=== PATIENT | female | born 1945 | race Caucasian/White ===

== ENCOUNTER → 2016-09-06 | Outpatient (CLI) | payer OTHER ==
[~2016-09-06] MED LIST: ASCO10003 PO; ATEN50TA8 PO; CALC-393 PO; CHOLTAB3 PO; HYDR25TA4 PO; MAGN1CAP2 PO; MELA1TAB5 PO; MELO7.5T5 PO
--- NOTE | 2016-09-06 14:43 | MAMMOGRAPHY REPORT ---
UNILATERAL LEFT DIGITAL DIAGNOSTIC MAMMOGRAM TOMOSYNTHESIS WITH CAD: 09/06/2016 CLINICAL HISTORY: 70 year-old woman with a personal history of left breast cancer status post lumpec ashkan and radiation presents for follow-up in the left breast after treatment. TECHNIQUE: Left CC and MLO 2-D digital and tomosynthesis images, spot magnification left CC and ML v iews were obtained. Current study was also evaluated with a Computer Aided Detection (CAD) system. COMPARISON: Comparison is made to exams dated: 03/08/2016 mammogram, 09/07/2015 mammogram, 01/27/2015 m ammogram, 01/25/2015 ultrasound, 01/25/2015 mammogram, and 01/08/2015 mammogram - [facility]. BREAST COMPOSITION: There are scattered areas of fibroglandular density in the left breast. FINDINGS: A linear scar marker overlies the upper outer middle one third of the left breast. There is expected underlying architectural distortion, focal asymmetry and benign-appearing calcifications at the site of prior lumpectomy in the upper outer middle to posterior left breast. There is mild diffuse skin thickening, likely related to prior treatment. No new suspicious mass, architectural d istortion or cluster of suspicious microcalcifications is seen. IMPRESSION: ACR-BI-RADS CATEGORY 3: PROBABLY BENIGN Expected post-therapeutic changes of the left breast, without definite mammographic evidence of carl gnancy. Recommend follow-up left diagnostic mammograms with possible ultrasound in 6 months to ensu re at least 2 years of stability posttreatment. Annual right mammography is also due at that time. These results and recommendations were discussed with the patient at the time of the exam. Approximately 10% of breast cancers are not detected with mammography. A negative mammographic repor t should not delay biopsy if a clinically suggestive mass is present. Deysi Gay M.D. ay/:09/06/2016 11:00:13 Base Remover: Ariana Khan, [facility] letter sent: Follow Up Recommended 3 BI-RADS Code: ACR-BI-RADS Category 3: Probably Benign
== END | disposition home or self-care (01) ==
LOC: C.MAMM 10:28
PROVIDERS: ATTEND Physician Assistant Medical
DX: Z08 Encounter for follow-up examination after completed treatment for malignant neoplasm (principal); Z85.3 Personal history of malignant neoplasm of breast

== ENCOUNTER → 2017-03-09 | Outpatient (CLI) | payer OTHER ==
--- NOTE | 2017-03-09 15:47 | MAMMOGRAPHY REPORT ---
BILATERAL DIGITAL DIAGNOSTIC MAMMOGRAM TOMOSYNTHESIS WITH CAD: 03/09/2017 CLINICAL HISTORY: History of left breast cancer status post lumpectomy and radiation therapy. The pa lambert reports no current complaints. TECHNIQUE: Breast tomosynthesis in addition to standard 2D mammography was performed. Current study was also evaluated with a Computer Aided Detection (CAD) system. Bilateral CC and MLO 2-D and tomosy nthesis images and spot magnification left CC and ML views were obtained. COMPARISON: Comparison is made to exams dated: 09/06/2016 mammogram, 03/08/2016 mammogram, 09/07/2015 karolina mogram, 01/27/2015 mammogram, 01/25/2015 mammogram, and 01/08/2015 mammogram - [facility]. BREAST COMPOSITION: There are scattered areas of fibroglandular density in both breasts. FINDINGS: There are stable post surgical changes in the left upper outer quadrant from prior lumpect humza, including stable density and architectural distortion at the lumpectomy bed. A linear scar carson er denotes a scar on the left upper outer breast. The remainder of both breasts are stable compared to prior exams, without suspicious masses, calcifications, or areas of architectural distortion. Sca ttered bilateral benign-appearing calcifications are not significantly changed. IMPRESSION: ACR BI-RADS CATEGORY 2: BENIGN Stable post surgical changes in the left breast, without mammographic evidence of malignancy in eithe r breast. There is no mammographic evidence of malignancy. A 1 year screening mammogram is recommend ed. The patient has been verbally notified of the results. Approximately 10% of breast cancers are not detected with mammography. A negative mammographic report should not delay biopsy if a clinically suggestive mass is present. Suzanna Ryan M.D. ah/:03/09/2017 08:32:22 Bridge Repairer: Niko BUNN(R)(M), [facility] letter sent: Normal 1/2 BI-RADS Code: ACR BI-RADS Category 2: Benign
== END | disposition home or self-care (01) ==
LOC: C.MAMM 07:59
PROVIDERS: ATTEND Physician Assistant Medical
DX: Z98.890 Other specified postprocedural states (principal); Z85.3 Personal history of malignant neoplasm of breast

== ENCOUNTER → 2017-03-15 | Outpatient (CLI) | payer OTHER ==
[2017-03-15 13:38] VITALS: BP_SYST 155; BP_SYST 181; BP_DIAS 71; BP_DIAS 75; PULSE 60; TEMP 36.5; O2SAT 98
--- NOTE | 2017-03-15 15:33 | Radiation Oncology Follow-Up ---
Radiation Oncology Follow-Up Date of Visit Mar 15, 2017. Reason For Visit Annual follow-up Radiation Completion Date 06/10/15 Diagnosis (1) 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 Status: Resolved Onset Date: 01/27/2015 Histology Subtype: ductal Stage: l (A) Permanent Comment: Abnormal left breast mammogram Status post ultrasound-guided core needle biopsy 01/25/2015 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, progesterone receptor negative, HER-2/yury negative Status post lumpectomy and sentinel lymph node biopsy 03/03/2015 Pathologic stage [id number] Status post reexcision 03/23/2015 due to positive margin no residual tumor Status post completion of radiation therapy 06/10/2015 received 6120 cGy Last Edited By: Siria Dunham on Jan 12, 2016 15:42 History of Present Illness Ms. Robbins does not have a family history of breast cancer. She does have 2 sisters who are from endometrial cancer. She has 2 daughters ages 43 and 38. She is been followed with serial screening mammograms and on 01/08/2015 she underwent bilateral digital screening mammograms. This showed a new 8 mm mass with associated microcalcifications in the left breast at approximately the 12 o' clock position. Spot magnification view, true lateral view and possible breast ultrasound were recommended for further evaluation. Therefore on 01/25/2015 patient underwent a unilateral left digital diagnostic mammogram and targeted left breast ultrasound. This showed a persistent oval mass measuring 8 mm in the left breast at the 12 o'clock position. A few punctate calcifications were seen in association with this mass. Targeted ultrasound of the left breast at the 12 o' clock position showed an oval hypoechoic mass measuring 0.8 x 0.7 x 0.6 cm located 3 cm from the nipple felt to correlate with the mammographic mass. On 01/27/2015 the patient underwent an ultrasound-guided biopsy of the left breast. The tissue evaluated revealed invasive ductal carcinoma, Howe grade 2 of 3. The tumor measured up to 0.7 cm on the core biopsy. Ductal carcinoma in situ, solid without necrosis and nuclear grade 2 of 3 was identified. No LCIS was identified. The microcalcifications were associated with the invasive carcinoma. Lymphovascular invasion was not identified. Estrogen receptors were negative, progesterone receptors were negative and HER-2/yury overexpression was negative by FISH analysis. Case: [id number]. Patient was seen by Dr. Owens for further evaluation and surgical management. She discussed treatment options with the patient. The patient was felt to be a good candidate for breast conserving therapy and she agreed to proceed with lumpectomy and sentinel node biopsy. On 03/04/2015 patient underwent a left breast needle localized lumpectomy and sentinel lymph node sampling. 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 The inferior-posterior (deep) and superior margins were positive for invasive carcinoma. The inferior margin was also positive for ductal intraepithelial neoplasia-2. 3 sentinel lymph nodes were identified and all 3 were negative for metastatic carcinoma. A reexcision of the left medial, inferior and posterior margin were performed. The tumor was at least 1.5 cm from these margins. However the invasive tumor remained focally positive at the superior margin which was not reexcised. The final pathologic stage was therefore pT1b pN0 accession #: [id number]. On 2014 patient underwent a reexcision of the superior margin. This showed no residual carcinoma seen. Accession #: [id number]. Patient was subsequent seen by Dr. Valerio Hood for discussion of adjuvant chemotherapy. Based on the triple negative in size of the lesion he recommended consideration of adjuvant chemotherapy consisting of 4 cycles of Taxotere/Cytoxan. After discussing the anticipated benefit from systemic chemotherapy the patient decided against chemotherapy but was willing to proceed with adjuvant radiation. It is for this reason that we were asked to see the patient. She completed radiation therapy 06/10/2015. She received 6120 cGy Interim History She's been doing well over this past year. She noticed no changes of her breast. She's noted no masses or tenderness and no change of the axilla. She' s had no swelling of her arm. She is up-to-date on mammography. She had her mammogram 03/09/2017. She did state that the test was quite uncomfortable. We discussed taking Aleve prior to her next mammogram to help prevent discomfort. Allergies Coded Allergies: No Known Allergies (Unverified , 11/25/13) Home Medications Scheduled Ascorbic Acid (Vitamin C), 1 TAB PO DAILY Atenolol (Tenormin), 75 MG PO DAILY Calcium Carbonate (Calcium), 1 TAB PO DAILY Ergocalciferol (Vitamin D), 400 INTER.UNIT PO DAILY Hydrochlorothiazide (Hctz), 25 MG PO DAILY Magnesium Oxide (Mg Supplement (Magnesium), 1 CAP PO DAILY Scheduled PRN Melatonin (Kp Melatonin), 1 TAB PO HS PRN for Insomnia Review of Systems Gastrointestinal: Symptoms: WNL Oral: Symptoms: No Problems Respiratory: Symptoms: WNL Urinary: Symptoms: WNL Skin: Symptoms: No Problems Other Skin Symptoms: Area on left breast with intermittent dryness that resolves w/Vit. E oil Breast: Right Upper Arm Measurement: 38.0 Right Mid Arm Measurement: 25.8 Right Wrist Measurement: 17.0 Left Upper Arm Measurement: 35.0 Left Mid Arm Measurement: 25.5 Left Wrist Measurement: 16.5 Arm Dominence: Right Physical Exam Vital Signs Date Time Temp Pulse Resp B/P (MAP) Pulse Ox O2 Delivery O2 Flow Rate FiO2 03/15/17 13:38 36.5 60 20 181/75 98 155/71 Fatigue: None General Appearance: no apparent distress Eyes: normal inspection, EOMI ENT: normal ENT inspection, hearing grossly normal Neck: no adenopathy, thyroid normal Respiratory/Chest: lungs clear, no respiratory distress, no accessory muscle use Breast: Breast examination reveals well-healed incisions of the left breast. There are no masses or tenderness no axillary adenopathy. There are no skin retractions or nipple changes. There is asymmetry due to deficit of tissue following the lumpectomy. Using the [place] score cosmesis she has a fair outcome due to the asymmetry. There is vitiligo of both breasts. Right breast showed no masses or tenderness and no axillary adenopathy. Cardiovascular: regular rate, rhythm, no gallop, no murmur Abdomen: non tender Extremities: no pedal edema Neurologic/Psychiatric: no motor/sensory deficits, alert, normal mood/affect Skin: warm/dry Additional Studies Patient: LISY ROBBINS Med Rec: [id number] Address1: [address] [place] [address] [facility]: [id number] Date: 1945 Sex: F Ref Phy: Jose Gregory M.D. Att Phy: Siria Dunham PA-C Lyla Phy: Jose Gregory M.D. Inter Phy: Suzanna Ryan MD [facility] Zip: [place] [address] SC: C.MAMM Report #: [id number] Underground Electrician: EVETTE Diagnosis: 6 MO F/U BILATERAL Service Date: 03/09/17 MNE: [id number] Ordering Dr: Siria Dunham PA-C CC: Siria Dunham PA-C CONF: DICTATED BY: Suzanna Ryan MD MAMMOGRAPHY REPORT BILATERAL DIGITAL DIAGNOSTIC MAMMOGRAM TOMOSYNTHESIS WITH CAD: 03/09/2017 CLINICAL HISTORY: History of left breast cancer status post lumpectomy and radiation therapy. The patient reports no current complaints. TECHNIQUE: Breast tomosynthesis in addition to standard 2D mammography was performed. Current study was also evaluated with a Computer Aided Detection (CAD ) system. Bilateral CC and MLO 2-D and tomosynthesis images and spot magnification left CC and ML views were obtained. COMPARISON: Comparison is made to exams dated: 09/06/2016 mammogram, 03/08/2016 mammogram, 09/07/2015 mammogram, 01/27/2015 mammogram, 01/25/2015 mammogram, and 01/08 mammogram - [facility] [address]. BREAST COMPOSITION: There are scattered areas of fibroglandular density in both breasts. FINDINGS: There are stable post surgical changes in the left upper outer quadrant from prior lumpectomy, including stable density and architectural distortion at the lumpectomy bed. A linear scar marker denotes a scar on the left upper outer breast. The remainder of both breasts are stable compared to prior exams, without suspicious masses, calcifications, or areas of architectural distortion. Scattered bilateral benign-appearing calcifications are not significantly changed. IMPRESSION: ACR BI-RADS CATEGORY 2: BENIGN Stable post surgical changes in the left breast, without mammographic evidence of malignancy in either breast. There is no mammographic evidence of malignancy. A 1 year screening mammogram is recommended. The patient has been verbally notified of the results. Approximately 10% of breast cancers are not detected with mammography. A negative mammographic report should not delay biopsy if a clinically suggestive mass is present. Suzanna Ryan M.D. ah/:03/09/2017 08:32:22 Monument Installer: Niko BUNN(Ramirez)(M), [facility] [address] letter sent: Normal 1/2 BI-RADS Code: ACR BI-RADS Category 2: Benign Dictated by: Suzanna Ryan MD Signed by: Suzanna Ryan MD Assessment & Plan Plan: Continue annual mammography. She had not been scheduled for the next mammogram this was set up for her today. We had discussed taking in the leave an hour prior to her mammogram to help prevent discomfort. We discussed the asymmetry of her breasts. She does have difficulty with having her bra fit correctly. I discussed with her the program that is available called knitted knockers. This program provides small prosthesis to breast cancer patients. I also gave her ideas for creating her own padding to help her bra fit better. We asked her to return to our office in 1 year. She may call if she has any questions or concerns in the interim. Total Time In Follow-Up I spent 20 minutes speaking to the patient and performing examination. I spent 15 minutes reviewing information in completing this note. Copy To Jose Gregory M.D. Problem Qualifiers (1) 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: Estrogen receptor status: negative Qualified Codes: C50.112 - Malignant neoplasm of central 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 breast; Z17.1 - Estrogen receptor negative status [ER-]
== END | disposition home or self-care (01) ==
LOC: C.ONC 13:14
PROVIDERS: ATTEND Physician Assistant Medical
DX: Z08 Encounter for follow-up examination after completed treatment for malignant neoplasm (principal); Z92.3 Personal history of irradiation; Z85.3 Personal history of malignant neoplasm of breast

== ENCOUNTER 2018-10-15 01:25 | Inpatient (IN) ==
[2018-10-15] MEDS ORDERED: SODIUM CHLORIDE 0.9% 1000ML 500 ML IV ONE (01:51)
[2018-10-15] MEDS ORDERED: METOPROLOL TARTRATE 1 MG/ML VIAL IV STA ×3 (01:51→02:46)
[2018-10-15 02:13] LABS: Basophils # (auto) 0.02 K/uL (0-0.2); Basophils % (auto) 0.4 %; Hematocrit (blood only) 37.9 % (37-47); Hemoglobin 12.2 g/dL (12.0-16.0); Immature Granulocytes # (auto) 0.01 K/uL (0.00-0.02); Immature Granulocytes % (auto) 0.2 %; Lymphocytes % (auto) 17.9 %; Mean Corpuscular Hgb Conc 32.2 g/dL (32-36); Mean Corpuscular Volume 72.3 fL (80-100); Mean Platelet Volume 10.4 fL (7.4-10.4); Monocytes # (auto) 0.34 K/uL (0.11-0.59); Monocytes % (auto) 6.7 %; Neutrophils # (auto) 3.77 K/uL (1.4-6.5); Neutrophils % (auto) 74.8 %; Platelet Count 198 K/uL (130-400); RDW Coefficient of Variation 16.7 % (11.5-14.5); RDW Standard Deviation 44.2 fL (36.4-46.3); Red Blood Count 5.24 M/uL (4.2-5.4); White Blood Count 5.04 K/uL (4.8-10.8)
[2018-10-15 02:29] LABS: Partial Thromboplastin Time 27.2 Seconds (21.0-31.0); Prothrombin Time 10.4 Seconds (9.0-12.0)
[2018-10-15 02:31] LABS: Albumin Level 3.3 gm/dl (3.4-5.0); BUN Creatinine Ratio 22.2 (10-20); Bilirubin Direct 0.1 mg/dl (0-0.2); Blood Urea Nitrogen 12 mg/dl (7-18); Calcium 8.6 mg/dl (8.5-10.1); Carbon Dioxide 29 mmol/L (21-32); Chloride 102 mmol/L (98-107); Creatinine Clr Calc Pharmacy 117.9 ml/min; Est GFR (African American) 109.3; Est GFR (Non-African American) 94.3; Glucose 126 mg/dl (70-99); Potassium 3.3 mmol/L (3.5-5.1); Sodium 138 mmol/L (136-145)
[2018-10-15 02:42] LABS: Alanine Aminotransferase 16 U/L (12-78); Alkaline Phosphatase 98 U/L (45-117); Aspartate Aminotransferase 14 U/L (15-37); Bilirubin,Total 0.5 mg/dl (0.2-1); Total Protein 7.7 gm/dl (6.4-8.2); Troponin I < 0.015 ng/ml (0-0.045)
[2018-10-15] MEDS ORDERED: HEPARIN 25000 UNIT/500 ML D5W IV ONE (02:49)
[2018-10-15] MEDS ORDERED: HEPARIN SOD (PORCINE) 1000 UNIT/ML 10 ML VIAL ONE (02:58)
[2018-10-15] MEDS ORDERED: dilTIAZem HCl 125 MG in DEXTROSE 5% 100 ML IV ONE (03:08)
[2018-10-15] MEDS ORDERED: dilTIAZem HCl 5 MG/ML 5 ML VIAL IV STA (03:08)
[2018-10-15] MEDS ORDERED: POTASSIUM CHLORIDE 20 MEQ TABCR PO STA (03:55)
[2018-10-15] MEDS ORDERED: METOPROLOL SUCC 25MG EXT REL TAB PO SCH (04:00)
[2018-10-15 04:14] LABS: NT Pro B Type Natriuretic Pept 361 pg/ml (0-900)
--- NOTE | 2018-10-15 04:36 | History & Physical Report ---
Date of Service October 15, 2018 Assessment & Plan (1) Atrial fibrillation with RVR: New onset Multifactorial: Uncontrolled BP Hypokalemia secondary to diuretic Rx Subsequent conversion to NSR at the emergency room. breast cancer L status post surgery radiation Hyperglycemia, likely prediabetes outpatient hemoglobin A1c 5.8 last month PCU Initiate Toprol-XL for rate control in place of patient home atenolol Replace potassium, hold home diuretic for now TTE, Cardiology consult RE new onset A. fib (Dr. Wright as per patient's 's request.) IV heparin for thromboembolic prophylaxis for now DVT prophylaxis. Heparin Full code (2) New onset atrial fibrillation: History of Present Illness Chief Complaint: Palpitations Primary Care Provider: Jose Gregory MD History obtained from patient, family, and records. Medical history significant for hypertension, L breast cancer status post surgery radiation. Patient roused from sleep this morning with palpitations, chest fluttering and slight heaviness, No S OB. Transient episode last week. Denies unusual stress. Compliant with home meds. SBP at home 180s. At the ER, patient noted to be in rapid A. fib. Cardiac rate 150s. IV Lopressor, Cardizem, NSS boluses administered. IV heparin initiated at the ER. Subsequent heart rhythm conversion to NSR. 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 Allergies Allergy/AdvReac Type Severity Reaction Status Date / Time No Known Allergies Allergy Unverified 10/15/18 01:55 Home Medications Home Medications Medication Instructions Recorded Confirmed Type atenolol 75 mg PO DAILY 10/15/18 10/15/18 History cholecalciferol (vitamin D3) 400 unit PO DAILY 10/15/18 10/15/18 History [Vitamin D3] hydrochlorothiazide 25 mg PO DAILY 10/15/18 10/15/18 History melatonin 5 mg PO HS PRN 10/15/18 10/15/18 History multivitamin [Multiple Vitamins] 1 tab PO DAILY 10/15/18 10/15/18 History Past Med/Surg History Medical History HTN (hypertension) (Chronic) 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 (Resolved 01/27/15) "Abnormal left breast mammogram Status post ultrasound-guided core needle biopsy 01/25/2015 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, progesterone receptor negative, HER-2/yury negative Status post lumpectomy and sentinel lymph node biopsy 03/03/2015 Pathologic stage [id number] Status post reexcision 03/23/2015 due to positive margin no residual tumor Status post completion of radiation therapy 06/10/2015 received 6120 cGy " On 07/09/15 10:05 Siria Dunham wrote "Abnormal left breast mammogram Status post ultrasound-guided core needle biopsy 01/25/2015 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, progesterone receptor negative, HER-2/yury negative Status post lumpectomy and sentinel lymph node biopsy 03/03/2015 Pathologic stage [id number] Status post reexcision 03/23/2015 due to positive margin no residual tumor " On 07/09/15 10:05 Siria Dunham wrote "Abnormal left breast mammogram Status post ultrasound-guided core needle biopsy 01/25/2015 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, progesterone receptor negative, HER-2/yury negative Status post lumpectomy and sentinel lymph node biopsy 03/03/2015 Pathologic stage [id number] Status post reexcision 03/23/2015 due to positive margin no residual tumor " On 04/07/15 12:14 Siria Dunham wrote "Abnormal left breast mammogram Status post ultrasound-guided core needle biopsy 01/25/2015 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, progesterone receptor negative, HER-2/yury negative Status post lumpectomy and sentinel lymph node biopsy 03/03/2015 Pathologic stage [id number] Status post reexcision 03/23/2015 due to positive margin no residual tumor" On 04/07/15 12:12 Siria Dunham wrote "Abnormal left breast mammogram Status post ultrasound-guided core needle biopsy 01/25/2015 Invasive ductal carcinoma Jana receptor negative, progesterone receptor negative, HER-2/yury negative Status post lumpectomy and sentinel lymph node biopsy 03/03/2015 Pathologic stage [id number] Status post reexcision 03/23/2015 due to positive margin no residual tumor" Surgical History H/O: hysterectomy (Resolved) Family History Other No pertinent family history Social History Preferred Language: Bahraini Communication Ability: Effective Main Line Assembler Required: No Beliefs That Will Affect Care: None Current Living Situation: Parent Other Information That Helps Us Care for You: No Feels Safe at Home: Yes Safety Concerns: Feels Safe At This Time Smoking Status: Never smoker Do You Dip or Chew Tobacco: No Second Hand Exposure: No Tobacco Cessation Education Requested by Patient: No Hx Alcohol Use: No Hx Substance Use: No Review of Systems Review of Systems: As per HPI, all 10 systems reviewed, all other ROS negative Physical Exam Physical Exam: GENERAL: Slightly uncomfortable, obese, pleasant, no respiratory distress SKIN: Normal color, warm HEENT: Cucumber palpebral conjunctivae, no ptosis, chronic lower lip asymmetry, moist buccal mucosa NECK : Supple, short, no tenderness CHEST : Decreased breath sounds, no tenderness HEART : RRR, no obvious murmurs ABDOMEN: distention, nontender EXTREMITIES : Chronic Edu LE swelling, no LE tenderness, no other conspicuous deformities noted NEUROLOGIC : Coherent, chronic lower facial asymmetry, no other gross focality Results & Data Vital Signs (Past 12 Hours) Vital Signs Temp Pulse Pulse Resp BP BP Pulse Ox 10/15/18 03:45 74 18 132/63 96 10/15/18 02:54 140 H 168/129 H 10/15/18 02:53 138 H 20 168/129 H 96 10/15/18 02:23 137 H 20 146/108 H 95 10/15/18 02:10 136 H 15 167/100 H 99 10/15/18 01:57 146 H 18 169/136 H 98 10/15/18 01:33 36.4 C L 157 H 20 187/117 H 98 Laboratory Results Laboratory Results WBC 5.04 K/uL (4.8-10.8) 10/15/18 02:04 RBC 5.24 M/uL (4.2-5.4) 10/15/18 02:04 Hgb 12.2 g/dL (12.0-16.0) 10/15/18 02:04 Hct 37.9 % (37-47) 10/15/18 02:04 MCV 72.3 fL (80-100) L 10/15/18 02:04 MCH 23.3 pg (25-34) L 10/15/18 02:04 MCHC 32.2 g/dL (32-36) 10/15/18 02:04 RDW Std Deviation 44.2 fL (36.4-46.3) 10/15/18 02:04 RDW Coeff of Carlita 16.7 % (11.5-14.5) H 10/15/18 02:04 Plt Count 198 K/uL (130-400) 10/15/18 02:04 MPV 10.4 fL (7.4-10.4) 10/15/18 02:04 Immature Gran % (Auto) 0.2 % 10/15/18 02:04 Neut % (Auto) 74.8 % 10/15/18 02:04 Lymph % (Auto) 17.9 % 10/15/18 02:04 Laurel % (Auto) 6.7 % 10/15/18 02:04 Eos % (Auto) 0.0 % 10/15/18 02:04 Baso % (Auto) 0.4 % 10/15/18 02:04 Immature Gran # (Auto) 0.01 K/uL (0.00-0.02) 10/15/18 02:04 Neut # (Auto) 3.77 K/uL (1.4-6.5) 10/15/18 02:04 Lymph # (Auto) 0.90 K/uL (1.2-3.4) L 10/15/18 02:04 Laurel # (Auto) 0.34 K/uL (0.11-0.59) 10/15/18 02:04 Eos # (Auto) 0.00 K/uL (0-0.5) 10/15/18 02:04 Baso # (Auto) 0.02 K/uL (0-0.2) 10/15/18 02:04 PT 10.4 Seconds (9.0-12.0) 10/15/18 02:04 INR 1.0 (0.9-1.1) 10/15/18 02:04 APTT 27.2 Seconds (21.0-31.0) 10/15/18 02:04 PTT Ratio 1.0 10/15/18 02:04 Sodium 138 mmol/L (136-145) 10/15/18 02:04 Potassium 3.3 mmol/L (3.5-5.1) L 10/15/18 02:04 Chloride 102 mmol/L (98-107) 10/15/18 02:04 Carbon Dioxide 29 mmol/L (21-32) 10/15/18 02:04 Anion Gap 7.0 (3-11) 10/15/18 02:04 BUN 12 mg/dl (7-18) 10/15/18 02:04 Creatinine 0.54 mg/dl (0.6-1.2) L 10/15/18 02:04 Est Cr Clr Drug Dosing 117.9 ml/min 10/15/18 02:04 Est GFR ( Amer) 109.3 10/15/18 02:04 Est GFR (Non-Af Amer) 94.3 10/15/18 02:04 BUN/Creatinine Ratio 22.2 (10-20) H 10/15/18 02:04 Glucose 126 mg/dl (70-99) H 10/15/18 02:04 Calcium 8.6 mg/dl (8.5-10.1) 10/15/18 02:04 Magnesium 2.0 mg/dl (1.8-2.4) 10/15/18 02:04 Total Bilirubin 0.5 mg/dl (0.2-1) 10/15/18 02:04 Direct Bilirubin 0.1 mg/dl (0-0.2) 10/15/18 02:04 AST 14 U/L (15-37) L 10/15/18 02:04 ALT 16 U/L (12-78) 10/15/18 02:04 Alkaline Phosphatase 98 U/L (45-117) 10/15/18 02:04 Troponin I < 0.015 ng/ml (0-0.045) 10/15/18 02:04 NT-Pro-B Natriuret Pep 361 pg/ml (0-900) 10/15/18 02:04 Total Protein 7.7 gm/dl (6.4-8.2) 10/15/18 02:04 Albumin 3.3 gm/dl (3.4-5.0) L 10/15/18 02:04 TSH 2.420 uIu/ml (0.300-4.500) 10/15/18 02:04 Diagnostic Findings Chest x-ray as per my interpretation cardiomegaly, minimal pulmonary congestion EKG as per my interpretation : Rate 150, A. fib, LAD, LAFB, ST depression anterolateral leads
[2018-10-15] MEDS ORDERED: TRAMADOL HCL 50 MG TABLET PO PRN (04:37)
[2018-10-15] MEDS ORDERED: NITROGLYCERIN SL 0.4 MG/TAB TAB SL PRN (04:37)
[2018-10-15] MEDS ORDERED: ACETAMINOPHEN 325 MG TAB PO PRN (04:37)
[2018-10-15] MEDS ORDERED: Heparin IV Standard *NO* Bolus STA (04:37)
[2018-10-15] MEDS ORDERED: MoRPHine SULFATE 4 MG/ML 1 ML CARP\\VIAL IV PRN (04:37)
[2018-10-15] MEDS ORDERED: PROMETHAZINE HCL 12.5 MG in SODIUM CHLORIDE 0.9% 50 ML IV PRN (04:37)
--- NOTE | 2018-10-15 05:02 | Emergency Department Note ---
Entered by Savage Jacob acting as a scribe for Charli Powers MD ED Provider Note Name: Mirna Robbins Age: 72 Arrives Via: Triage Informant: Self CC: Palpitations HPI: 72 female arrives for evaluation of constant palpitations beginning around 1.5 hours ago. The patient states she had a similar episode 10 days ago that lasted for 30mins to an hour. She reports she stays at home and did not exert herself recently. The patient notes she takes hydrochlorothiazide for her history of HTN. She states she also takes a water pill. No medications prior to arrival. Nothing makes symptoms better nor worse. No falls nor trauma. The patient denies a personal or family history of a-fib or a rapid heart beat and taking blood thinners. She also denies leg swelling, SOB, chest pain, chest pressure, recent falls, blood in her stool, black stool, exerting herself, drinking a large amount of coffee, drug use, using weight loss medication, smoking history, and alcohol use. The patient notes she had breast surgery four years ago and a hysterectomy over 20 years ago. ROS: See above HPI for pertinent positives & negatives. A total of 10 systems reviewed and were otherwise negative. Past Medical History: HTN Past Surgical History: Hysterectomy, breast surgery Family History: None Social History: Lives with . Denies alcohol use and drug use. Denies smoking history. Home Medications: HCTZ Allergies NKDA Physical: Vitals: BP 187/117, Pulse 157, Resp 20, Temp 97.5, O2Sat 98 Exam: GENERAL: Patient is overweight, well appearing, and in no acute distress. EYES: No scleral icterus, unremarkable pupils. ENT: Mucous membranes moist, no nasal congestion. NECK: No masses appreciated, no meningismus, trachea is midline. RESPIRATORY: No dyspnea. Clear to auscultation and equal bilaterally. No wheeze, no rhonchi. CARDIOVASCULAR: Tachycardic rate and irregular rhythm. No murmurs, rubs, gallops appreciated. GASTROINTESTINAL: Abdomen soft, non-tender, no peritonitis. Bowel sounds positive. No masses appreciated. BACK: No midline tenderness, no CVA tenderness EXTREMITIES: Normal motion all extremities, no cyanosis, no edema. NEUROLOGIC: Alert and oriented, no acute motor or sensory deficits, no focal weakness, cranial nerves grossly intact. SKIN: No rash, no jaundice, no diaphoresis. ED Course: Prior Medical Record, Triage/Nursing Notes, Medications, Allergies reviewed by Me Vital Signs: reviewed and remarkable for HTN, Tachycardia Labs: Reviewed and unremarkable Interventions: Saline Lock, Lopressor 5mg IV x 3, Cardizem 20mg IV, Cardizem Gtt, Heparin Bolus/Gtt, NSS bolus 500mL IV Imaging: X ray results are stated below per my interpretation: Chest: 1 view: No infiltrate, no effusion, normal cardiac border. Mild congestive findings vs obesity EKG: #1: Per My Interpretation: Indication - Palpitations: Afib RVR with ST abnormalities consistent with rate. 155 bpm. QTC 456. No recent for comparison #2: Per My Interpretation: Indication - Palpitations: NSR no ectopy nor ischemia. 88 bpm. QTC 459. When compared to earlier is no longer in afib rvr Consults: Dr Conrado Serna Hospitalist will bring in for further management. Reassessments/Times: 0143: The patient was evaluated in room B10. A complete history and physical exam was performed. 0212: I reevaluated the patient. She is feeling better. Her HR is in the 130s. 0246: The patient's HR is in the 130s still and is irregular. She will receive one more dose of Lopressor. 0308: After three doses of Lopressor, the patient's HR is still in the 130s. 0348: I discussed the patient's case with Dr. Camp, [facility] Hospitalist. The patient will be evaluated for further management and care. 0351: The patient is feeling much better. Her HR is in the 60-70s and regular. She denies chest pain or other symptoms. I discussed the results with the patient. She is in agreement with the plan and a hospitalist evaluation. Blood pressure: Elevated - Referred to Hospitalist Disposition: Hospitalization Differentials: NSR, SVT, PACs, PVCs, Cardiac Dysrhythmia, Endocrine Dysfunction, Eletroclyte/Metabolic Abnormality, Pulmonary Embolism, Infectious, GI, amonst other pathologies Entertained. Medical Decision Making: Pleasant 72 yr old female with history of HTN and obesity and left breast CA arrives with palpitations found to be in new onset afib RVR. She is well appearing and in no distress. Story and exam not consistent with PE/Dissection. She has mild congestion on CXR though this may just be poor penetrance from obesity. Initial EKG with diffuse ST abnormalities consistent with rate though given minimal symptoms and no chest pain felt that emergent cardioversion not indicated. She was given Lopressor 5mg IV x 3 with only minimal response. Started Heparin for stroke prophylaxis and reviewed at length risks of anti- coagulation as well as contraindications. Cardizem started after discussing risks of this and heart failure. After starting this with gtt she a bit while later converted to NSR and no further symptoms of palpitations. She is stable, initial Trop negative. With amount of ST abnormalities on initial EKG, no history of afib and concerns for underlying heart disease I feel that hospitalization reasonable and thus hospitalist consulted. Stable at time of hospitalization. Impression: A-fib with RVR New onset a-fib Critical Care Time: I have personally spent greater than 45 minutes of critical care time in the direct management of this patient. Afib RVR requiring multiple rounds lopressor, cardizem, and then heparin and cardizem drips. This was a life/limb threatening event. This includes time spent evaluating patient, direct bedside care, chart review, placing orders, interpretation of diagnostic studies, discussion with consultants, patient, and family members, as well as other required patient management activities. This 45 minutes is in excess of all separately billable procedures. Charli Powers MD The scribe's documentation has been prepared under my direction and personally reviewed by me in its entirety. I confirm that the note above accurately reflects all work, treatment, procedures, and medical decision making performed by me. Impression & Plan Atrial fibrillation with RVR, New onset atrial fibrillation Past Med/Surg History Medical History HTN (hypertension) (Chronic) 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 (Resolved 01/27/15) "Abnormal left breast mammogram Status post ultrasound-guided core needle biopsy 01/25/2015 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, progesterone receptor negative, HER-2/yury negative Status post lumpectomy and sentinel lymph node biopsy 03/03/2015 Pathologic stage [id number] Status post reexcision 03/23/2015 due to positive margin no residual tumor Status post completion of radiation therapy 06/10/2015 received 6120 cGy " On 07/09/15 10:05 Siria Dunham wrote "Abnormal left breast mammogram Status post ultrasound-guided core needle biopsy 01/25/2015 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, progesterone receptor negative, HER-2/yury negative Status post lumpectomy and sentinel lymph node biopsy 03/03/2015 Pathologic stage [id number] Status post reexcision 03/23/2015 due to positive margin no residual tumor " On 07/09/15 10:05 Siria Dunham wrote "Abnormal left breast mammogram Status post ultrasound-guided core needle biopsy 01/25/2015 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, progesterone receptor negative, HER-2/yury ne gative Status post lumpectomy and sentinel lymph node biopsy 03/03/2015 Pathologic stage [id number] Status post reexcision 03/23/2015 due to positive margin no residual tumor " On 04/07/15 12:14 Siria Dunham wrote "Abnormal left breast mammogram Status post ultrasound-guided core needle biopsy 01/25/2015 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, progesterone receptor negative, HER-2/yury negative Status post lumpectomy and sentinel lymph node biopsy 03/03/2015 Pathologic stage [id number] Status post reexcision 03/23/2015 due to positive margin no residual tumor" On 04/07/15 12:12 Siria Dunham wrote "Abnormal left breast mammogram Status post ultrasound-guided core needle biopsy 01/25/2015 Invasive ductal carcinoma Jana receptor negative, progesterone receptor negative, HER-2/yury negative Status post lumpectomy and sentinel lymph node biopsy 03/03/2015 Pathologic stage [id number] Status post reexcision 03/23/2015 due to positive margin no residual tumor" Surgical History H/O: hysterectomy (Resolved) Family History Other No pertinent family history Social History Preferred Language: Setswana Feels Safe at Home: Yes Smoking Status: Never smoker Results & Data Vital Signs Vital Signs - 24 hr 10/15/18 01:33 10/15/18 01:57 10/15/18 02:10 Temperature 36.4 C L Temperature Source Oral Sepsis Recent Fever Within 48 Hours No Sepsis New/Unexplained Change in Mental Status No Sepsis Action Taken by Nursing No Action Required Pulse Rate 157 H Pulse Rate [Right Finger] 146 H 136 H Pulse Rhythm Regular Pulse Rhythm [Right Finger] Irregular Irregular Pulse Strength Normal Pulse Strength [Right Finger] Normal Normal Respiratory Rate 20 18 15 Respiratory Effort / Characteristics Non-Labored Spontaneous Non-Labored Non-Labored Respiratory Depth Normal Normal Normal Respiratory Pattern Regular Regular Regular Blood Pressure 187/117 H Blood Pressure [Right Arm] 169/136 H 167/100 H Blood Pressure Mean 140 Blood Pressure Mean [Right Arm] 147 122 Blood Pressure Position Sitting Blood Pressure Position [Right Arm] Lying Lying Pulse Oximetry 98 98 99 Oxygen Delivery Method Room Air Room Air Room Air 10/15/18 02:23 10/15/18 02:53 10/15/18 02:54 Temperature Temperature Source Sepsis Recent Fever Within 48 Hours Sepsis New/Unexplained Change in Mental Status Sepsis Action Taken by Nursing Pulse Rate 140 H Pulse Rate [Right Finger] 137 H 138 H Pulse Rhythm Pulse Rhythm [Right Finger] Irregular Regular Pulse Strength Pulse Strength [Right Finger] Normal Normal Respiratory Rate 20 20 Respiratory Effort / Characteristics Non-Labored Non-Labored Spontaneous Respiratory Depth Normal Normal Respiratory Pattern Regular Blood Pressure 168/129 H Blood Pressure [Right Arm] 146/108 H 168/129 H Blood Pressure Mean Blood Pressure Mean [Right Arm] 120 142 Blood Pressure Position Blood Pressure Position [Right Arm] Lying Pulse Oximetry 95 96 Oxygen Delivery Method Room Air Room Air 10/15/18 03:45 10/15/18 04:47 Temperature Temperature Source Sepsis Recent Fever Within 48 Hours Sepsis New/Unexplained Change in Mental Status Sepsis Action Taken by Nursing Pulse Rate Pulse Rate [Right Finger] 74 66 Pulse Rhythm Pulse Rhythm [Right Finger] Regular Regular Pulse Strength Pulse Strength [Right Finger] Normal Respiratory Rate 18 20 Respiratory Effort / Characteristics Non-Labored Spontaneous Non-Labored Spontaneous Respiratory Depth Normal Normal Respiratory Pattern Regular Blood Pressure Blood Pressure [Right Arm] 132/63 162/73 H Blood Pressure Mean Blood Pressure Mean [Right Arm] 86 102 Blood Pressure Position Blood Pressure Position [Right Arm] Pulse Oximetry 96 98 Oxygen Delivery Method Room Air Home Medications Current Medication List: was personally reviewed by me Laboratory Data Attestation: I reviewed the patient's lab results. Result diagrams: 10/15/18 02:04 10/15/18 02:04 Lab Results 10/15/18 10/15/18 10/15/18 Range/Units 02:04 02:04 02:04 WBC 5.04 (4.8-10.8) K/uL RBC 5.24 (4.2-5.4) M/uL Hgb 12.2 (12.0-16.0) g/dL Hct 37.9 (37-47) % MCV 72.3 L (80-100) fL MCH 23.3 L (25-34) pg MCHC 32.2 (32-36) g/dL RDW Std Deviation 44.2 (36.4-46.3) fL RDW Coeff of Carlita 16.7 H (11.5-14.5) % Plt Count 198 (130-400) K/uL MPV 10.4 (7.4-10.4) fL Immature Gran % (Auto) 0.2 % Neut % (Auto) 74.8 % Lymph % (Auto) 17.9 % [place] % (Auto) 6.7 % Eos % (Auto) 0.0 % Baso % (Auto) 0.4 % Immature Gran # (Auto) 0.01 (0.00-0.02) K/uL Neut # (Auto) 3.77 (1.4-6.5) K/uL Lymph # (Auto) 0.90 L (1.2-3.4) K/uL [place] # (Auto) 0.34 (0.11-0.59) K/uL Eos # (Auto) 0.00 (0-0.5) K/uL Baso # (Auto) 0.02 (0-0.2) K/uL PT 10.4 (9.0-12.0) Seconds INR 1.0 (0.9-1.1) APTT 27.2 (21.0-31.0) Seconds PTT Ratio 1.0 Sodium 138 (136-145) mmol/L Potassium 3.3 L (3.5-5.1) mmol/L Chloride 102 (98-107) mmol/L Carbon Dioxide 29 (21-32) mmol/L Anion Gap 7.0 (3-11) BUN 12 (7-18) mg/dl Creatinine 0.54 L (0.6-1.2) mg/dl Est Cr Clr Drug Dosing 117.9 ml/min Est GFR ( Amer) 109.3 Est GFR (Non-Af Amer) 94.3 BUN/Creatinine Ratio 22.2 H (10-20) Glucose 126 H (70-99) mg/dl Calcium 8.6 (8.5-10.1) mg/dl Magnesium 2.0 (1.8-2.4) mg/dl Total Bilirubin 0.5 (0.2-1) mg/dl Direct Bilirubin 0.1 (0-0.2) mg/dl AST 14 L (15-37) U/L ALT 16 (12-78) U/L Alkaline Phosphatase 98 (45-117) U/L Troponin I < 0.015 (0-0.045) ng/ml NT-Pro-B Natriuret Pep 361 (0-900) pg/ml Total Protein 7.7 (6.4-8.2) gm/dl Albumin 3.3 L (3.4-5.0) gm/dl TSH 2.420 (0.300-4.500) uIu/ml Administered Medications Metoprolol Succinate ([facility]rol Xl) [facility] [place] Stop: 11/14/18 03:59 Last Admin: 10/15/18 04:12 Dose: 25 mg Documented by: [id number] Discontinued Medications Diltiazem HCl (Cardizem) 20 mg IV NOW STA Stop: 10/15/18 03:09 Last Admin: 10/15/18 03:31 Dose: 20 mg Documented by: [id number] Cosigned by: [id number] Heparin Sodium (Porcine) (Heparin Iv Bolus) Confirm Administered Dose 10,000 units .ROUTE .STLiPlasome [employer]-MED ONE Stop: 10/15/18 02:59 Last Admin: 10/15/18 02:59 Dose: 6,000 units Documented by: [id number] Cosigned by: [id number] Heparin Sodium/Dextrose () 1 ea IV NOW STA; Protocol Stop: 10/15/18 02:47 Last Admin: 10/15/18 03:01 Dose: Not Given Documented by: [id number] Heparin Sodium/Dextrose (Heparin Sodium/Dextrose) Confirm Administered Dose 25,000 units IV .STK-MED ONE Stop: 10/15/18 02:50 Last Admin: 10/15/18 03:00 Dose: 1,400 units Documented by: [id number] Cosigned by: [id number] Sodium Chloride (Nss 1000ml) 500 mls @ 999 mls/hr IV .Q31M ONE Stop: 10/15/18 02:21 Last Infusion: 10/15/18 03:03 Dose: 0 mls/hr Documented by: [id number] Admin: 10/15/18 02:15 Dose: 999 mls/hr Documented by: [id number] Diltiazem HCl 125 mg/ Dextrose 125 mls @ 0 mls/hr IV .Q0M ONE; Protocol Stop: 10/15/18 03:09 Last Titration: 10/15/18 04:21 Dose: 0 mg/hr, 0 mls/hr Documented by: [id number] Admin: 10/15/18 03:31 Dose: 5 mg/hr, 5 mls/hr Documented by: [id number] Cosigned by: [id number] Metoprolol Tartrate (Lopressor) 5 mg IV NOW STA Stop: 10/15/18 01:52 Last Admin: 10/15/18 01:57 Dose: 5 mg Documented by: [id number] Metoprolol Tartrate (Lopressor) 5 mg IV NOW STA Stop: 10/15/18 02:13 Last Admin: 10/15/18 02:15 Dose: 5 mg Documented by: [id number] Metoprolol Tartrate (Lopressor) 5 mg IV NOW STA Stop: 10/15/18 02:47 Last Admin: 10/15/18 02:54 Dose: 5 mg Documented by: [id number] Potassium Chloride (Klor-Con M20) 40 meq PO NOW STA Stop: 10/15/18 03:56 Last Admin: 10/15/18 04:12 Dose: 40 meq Documented by: [id number] Blood Pressure Blood Pressure Findings: Elevated blood pressure Blood Pressure Disposition: further management by hospitalist Discharge Plan Visit Data Chief Complaint: Cardiac Assessment Stated Complaint: FEELS WEIRD IN CHEST,FLUTTERING INSIDE ED Provider: Charli Powers Discharge Problem: Atrial fibrillation with RVR, New onset atrial fibrillation Patient Disposition: Being Evaluated by Hospitalist Discharge Instructions Interventions: ED Discharge Assessment Last Done: 10/15/18 04:52 Forms Stand Alone Forms: [employer] Prescriptions Prescriptions: No Action multivitamin [Multiple Vitamins] Tablet 1 tab PO DAILY RF: 0 atenolol 25 mg tablet 75 mg PO DAILY RF: 0 hydrochlorothiazide 25 mg Tablet 25 mg PO DAILY RF: 0 cholecalciferol (vitamin D3) [Vitamin D3] 400 unit Tablet 400 unit PO DAILY RF: 0 melatonin 5 mg Tablet 5 mg PO HS PRN (Reason: Sleep) RF: 0 Referrals Referrals: Jose Gregory MD [Primary Care Provider] - The scribe's documentation has been prepared under my direction and personally reviewed by me in its entirety. I confirm that the note above accurately reflects all work, treatment, procedures, and medical decision making performed by me.
[2018-10-15] MEDS ORDERED: Heparin Adult STANDARD Wt-Based Dextrose 5% 25,000 units/500 mL IV SCH (05:15)
[2018-10-15] MEDS ORDERED: POTASSIUM CHLORIDE 20 MEQ TABCR PO ONE (06:00)
--- NOTE | 2018-10-15 06:31 | XRay Report ---
XR chest 1V portable CLINICAL HISTORY: Palpitations COMPARISON STUDY: No previous studies for comparison. FINDINGS: The heart is mildly enlarged. There is no focal pulmonary consolidation. There are no pleur al effusions. There is radiographic evidence of mild portal vascular congestion.[ IMPRESSION: Mild pulmonary vascular congestion. No evidence of focal pulmonary consolidation Electronically signed by: Jovany Perez M.D. 10/15/2018 6:30 AM
[2018-10-15] MEDS ORDERED: METOPROLOL SUCC 25MG EXT REL TAB PO STA (07:49)
[2018-10-15] MEDS ORDERED: MULTIVITAMIN TAB PO SCH (09:00)
--- NOTE | 2018-10-15 09:11 | Cardiology Consultation ---
Date of Consultation October 15, 2018 Assessment & Plan (1) Atrial fibrillation with RVR: Mrs. Robbins is a very pleasant 72 year old female with a history of Hypertension, Obesity, and Breast Cancer who was admitted earlier today with Tachypalpitations secondary to New Onset Paroxysmal Atrial Fibrillation with RVR and she was Hypokalemic secondary to chronic HCTZ use. This is her second episode of Atrial Fibrillation to her knowledge and she was clearly symptomatic. Her [id number] is 3 -- oral anticoagulation is recommended. Recommend the following: -- Continue Metoprolol Succinate ER 50 mg daily. 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 -- Stop HCTZ in favor of Dyazide 37.5-25 mg daily to reduce the risk of hypokalemia. -- Replete Potassium. -- Patient may be discharged to home from a cardiac standpoint. Follow up with Dannie Shields PA-C / Dr. Wright on Sunday08/30/2018 at 2:00 pm. Present on Admission?: Yes (2) HTN (hypertension): BP remains elevated, recommend the following: -- Continue Metoprolol Succinate ER 50 mg daily. -- Stop HCTZ in favor of Dyazide 37.5-25 mg daily to reduce the risk of hypokalemia. -- Maintain a low sodium, heart healthy. Present on Admission?: Yes (3) Hypokalemia: Hypokalemia is likely secondary to chronic HCTZ use: Recommend the following: -- Stop HCTZ. -- Discharge to home on Dyazide 37.5-25 mg daily. -- Check outpatient BMP, Serum Magnesium level in 1 to 2 weeks. Present on Admission?: Yes Supervising Physician Co-Signing Physician Notes Sulaiman Wright MD History of Present Illness Reason for Consultation: -- Paroxysmal Atrial Fibrillation with RVR. Requesting Physician: Chapo Macias MD Attending Physician: Sulaiman Wright MD History of Present Illness Mrs. Robbins is a very pleasant 72 year old female with a history of Hypertension, Obesity, and Breast Cancer who had the onset of Tachypalpitations that began around midnight that wakened her from sleep and lasted for a total of 3.5 hours. She had a similar episode last week that lasted approximately 30 minutes. She denies any associated symptoms -- she specifically denies any associated chest pain or discomfort, any shortness of breath, or any associated nausea, vomiting, or diaphoresis. Because of her symptoms -- she came to [facility] and was noted to be in Atrial Fibrillation with a V-rate of 150 bpm and she was noted to be hypokalemic -- which is probably secondary to the chronic use of HCTZ. Patient was converted to Metoprolol Succinate from Atenolol and she was transiently on IV Diltiazem drip. Patient spontaneously converted back to a NSR at approximately 0300 today -- and feels significantly better. She remains on a Heparin drip currently. Thus far patient has negative cardiac enzymes and pro-BNP is NOT elevated. Patient offers no other complaints -- she specifically denies any exertional chest pain, heaviness, tightness, pressure, or discomfort. She denies any exertional neck, jaw, back, or arm discomfort. She denies any shortness of breath, unusual SHEPPARD, or any recent changes to her exertional tolerance. She denies any orthopnea, pnd, syncope, or near syncope. She denies any signs or symptoms of stroke or mini-stroke. Allergies Allergy/AdvReac Type Severity Reaction Status Date / Time No Known Allergies Allergy Unverified 10/15/18 01:55 Home Medications Home Medications Medication Instructions Recorded Confirmed Type apixaban [Eliquis] 5 mg PO BID 30 Days #60 tab 10/15/18 Rx cholecalciferol (vitamin D3) 400 unit PO DAILY 10/15/18 10/15/18 History [Vitamin D3] melatonin 5 mg PO HS PRN 10/15/18 10/15/18 History metoprolol succinate 50 mg PO QAM 30 Days #30 tab 10/15/18 Rx multivitamin [Multiple Vitamins] 1 tab PO DAILY 10/15/18 10/15/18 History triamterene-hydrochlorothiazid 1 cap PO QAM 30 Days #30 cap 10/15/18 Rx Patient History Medical History 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 (01/27/15) "Abnormal left breast mammogram Status post ultrasound-guided core needle biopsy 01/25/2015 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, progesterone receptor negative, HER-2/yury negative Status post lumpectomy and sentinel lymph node biopsy 03/03/2015 Pathologic stage [id number] Status post reexcision 03/23/2015 due to positive margin no residual tumor Status post completion of radiation therapy 06/10/2015 received 6120 cGy " On 07/09/15 10:05 Siria Dunham wrote "Abnormal left breast mammogram Status post ultrasound-guided core needle biopsy 01/25/2015 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, progesterone receptor negative, HER-2/yury negative Status post lumpectomy and sentinel lymph node biopsy 03/03/2015 Pathologic stage [id number] Status post reexcision 03/23/2015 due to positive margin no residual tumor " On 07/09/15 10:05 Siria Dunham wrote "Abnormal left breast mammogram Status post ultrasound-guided core needle biopsy 01/25/2015 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, progesterone receptor negative, HER-2/yury negative Status post lumpectomy and sentinel lymph node biopsy 03/03/2015 Pathologic stage [id number] Status post reexcision 03/23/2015 due to positive margin no residual tumor " On 04/07/15 12:14 Siria Dunham wrote "Abnormal left breast mammogram Status post ultrasound-guided core needle biopsy 01/25/2015 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, progesterone receptor negative, HER-2/yury negative Status post lumpectomy and sentinel lymph node biopsy 03/03/2015 Pathologic stage [id number] Status post reexcision 03/23/2015 due to positive margin no residual tumor" On 04/07/15 12:12 Siria Dunham wrote "Abnormal left breast mammogram Status post ultrasound-guided core needle biopsy 01/25/2015 Invasive ductal carcinoma Jana receptor negative, progesterone receptor negative, HER-2/yury negative Status post lumpectomy and sentinel lymph node biopsy 03/03/2015 Pathologic stage [id number] Status post reexcision 03/23/2015 due to positive margin no residual tumor" HTN (hypertension) Surgical History H/O: hysterectomy Family History Other No pertinent family history Social History Preferred Language: Arabic Communication Ability: Effective Cooker Cleaner Required: No Beliefs That Will Affect Care: None Current Living Situation: Parent Other Information That Helps Us Care for You: No Feels Safe at Home: Yes Safety Concerns: Feels Safe At This Time Smoking Status: Never smoker Do You Dip or Chew Tobacco: No Second Hand Exposure: No Tobacco Cessation Education Requested by Patient: No Hx Alcohol Use: No Hx Substance Use: No Physical Exam Physical Exam: GENERAL: Patient is in no acute distress. HEENT: Head is atraumatic, normocephalic. EOM's intact. Facies symmetric. No perioral cyanosis. NECK: No JVD. Carotid upstrokes + 2 bilaterally without bruits. JVP is at the level of the clavicle sitting upright. CHEST and LUNGS: Clear to auscultation throughout all lung best. No wheezes, rales, or rhonchi. CVS: S1 and S2 are regular with a grade 1/6 basal systolic murmur. No obvious diastolic murmurs, gallops, or rubs. PMI is nonpalpable. No lifts, heaves, or thrills. No abdominal aortic or renal bruits. ABDOMINAL EXAM: Bowel sounds are present. No masses, organomegaly, or tenderness. EXTREMITIES: No clubbing or cyanosis. No edema. Intact posterior tibial and radial pulses. NEUROLOGIC EXAM: Patient is awake, alert, and oriented. Pleasant and cooperative. Answers questions appropriately. Speech is clear. Normal movement in all 4 extremities. Gait pattern was not assessed. EKG 10/15/2018: -- NSR with LVH by voltage criteria, no acute changes. TELEMETRY: -- Converted from rapid A-Fib to NSR at approximately 0330 this morning. Results & Data Vital Signs (Past 12 Hours) Vital Signs Temp Pulse Pulse Resp BP BP Pulse Ox 10/15/18 08:08 36.5 C 79 20 168/89 H 95 10/15/18 05:35 36.4 C L 77 18 179/90 H 98 10/15/18 04:47 66 20 162/73 H 98 10/15/18 03:45 74 18 132/63 96 10/15/18 02:54 140 H 168/129 H 10/15/18 02:53 138 H 20 168/129 H 96 10/15/18 02:23 137 H 20 146/108 H 95 10/15/18 02:10 136 H 15 167/100 H 99 10/15/18 01:57 146 H 18 169/136 H 98 10/15/18 01:33 36.4 C L 157 H 20 187/117 H 98 Laboratory Results Laboratory Results - last 24 hr 10/15/18 10/15/18 10/15/18 02:04 02:04 02:04 WBC 5.04 RBC 5.24 Hgb 12.2 Hct 37.9 MCV 72.3 L MCH 23.3 L MCHC 32.2 RDW Std Deviation 44.2 RDW Coeff of Carlita 16.7 H Plt Count 198 MPV 10.4 Immature Gran % (Auto) 0.2 Neut % (Auto) 74.8 Lymph % (Auto) 17.9 Estill % (Auto) 6.7 Eos % (Auto) 0.0 Baso % (Auto) 0.4 Immature Gran # (Auto) 0.01 Neut # (Auto) 3.77 Lymph # (Auto) 0.90 L Estill # (Auto) 0.34 Eos # (Auto) 0.00 Baso # (Auto) 0.02 PT 10.4 INR 1.0 APTT 27.2 PTT Ratio 1.0 Sodium 138 Potassium 3.3 L Chloride 102 Carbon Dioxide 29 Anion Gap 7.0 BUN 12 Creatinine 0.54 L Est Cr Clr Drug Dosing 117.9 Est GFR ( Amer) 109.3 Est GFR (Non-Af Amer) 94.3 BUN/Creatinine Ratio 22.2 H Glucose 126 H Calcium 8.6 Magnesium 2.0 Total Bilirubin 0.5 Direct Bilirubin 0.1 AST 14 L ALT 16 Alkaline Phosphatase 98 Troponin I < 0.015 NT-Pro-B Natriuret Pep 361 Total Protein 7.7 Albumin 3.3 L TSH 2.420 10/15/18 09:02 WBC RBC Hgb Hct MCV MCH MCHC RDW Std Deviation RDW Coeff of Carlita Plt Count MPV Immature Gran % (Auto) Neut % (Auto) Lymph % (Auto) Estill % (Auto) Eos % (Auto) Baso % (Auto) Immature Gran # (Auto) Neut # (Auto) Lymph # (Auto) Estill # (Auto) Eos # (Auto) Baso # (Auto) PT INR APTT 50.1 H* PTT Ratio 1.8 Sodium Potassium Chloride Carbon Dioxide Anion Gap BUN Creatinine Est Cr Clr Drug Dosing Est GFR ( Amer) Est GFR (Non-Af Amer) BUN/Creatinine Ratio Glucose Calcium Magnesium Total Bilirubin Direct Bilirubin AST ALT Alkaline Phosphatase Troponin I NT-Pro-B Natriuret Pep Total Protein Albumin TSH Medications Administered Active Medications Generic Name Dose Route Start Last Admin Trade Name Freq PRN Reason Stop Dose Admin Acetaminophen 650 mg 10/15/18 04:37 Tylenol PO 11/14/18 04:36 Q4H PRN Pain or Fever Promethazine HCl 12.5 mg/ 50.5 mls @ 202 mls/hr 10/15/18 04:37 Sodium Chloride IV 11/14/18 04:36 Q6H PRN Nausea And Vomiting Heparin Sodium/Dextrose 25,000 units in 500 mls @ 28 mls/hr 10/15/18 05:15 10/15/18 05:19 Heparin Sodium/Dextrose IV 11/14/18 05:14 1,400 units/hr .[id number] LINDA 28 mls/hr Administration Protocol 1,400 UNITS/HR Metoprolol Succinate 50 mg 10/16/18 09:00 Toprol Xl PO 11/15/18 08:59 QAM LINDA Morphine Sulfate 4 mg 10/15/18 04:37 Morphine Sulfate IV 10/29/18 04:36 Q4H PRN Pain Multivitamins 1 tab 10/15/18 09:00 10/15/18 07:31 Multivitamin Tab PO 11/14/18 08:59 1 tab DAILY LINDA Administration Nitroglycerin 0.4 mg 10/15/18 04:37 Nitrostat SL 11/14/18 04:36 UD PRN Chest Pain Tramadol HCl 25 mg 10/15/18 04:37 Ultram PO 11/14/18 04:36 Q4H PRN Pain
[2018-10-15 09:45] LABS: Partial Thromboplastin Ratio 1.8
[2018-10-15 10:06] LABS: Partial Thromboplastin Time 50.1 Seconds (21.0-31.0)
[2018-10-15] MEDS ORDERED: APIXABAN 5 MG TABLET PO SCH (12:30)
[2018-10-16] MEDS ORDERED: METOPROLOL SUCC 50MG EXT REL TAB PO SCH (09:00)
[2018-10-16] MEDS ORDERED: TRIAMTERENE/HCTZ 37.5/25MG CAP PO SCH (09:00)
--- NOTE | 2018-10-23 18:44 | Hospitalist Progress Note ---
Date of Service delayed entry date of service 10/15October 23, 2018 Assessment & Plan (1) Atrial fibrillation with RVR: Subsequent conversion to NSR at the emergency room. [place] V/Stol Landing Signal Officer consulted "Recommend the following: -- Continue Metoprolol Succinate ER 50 mg daily. 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 -- Stop HCTZ in favor of Dyazide 37.5-25 mg daily to reduce the risk of hypokalemia. -- Replete Potassium. -- Patient may be discharged to home from a cardiac standpoint. Follow up with Dannie Shields PA-C / Dr. Wright on Sunday08/30/2018 at 2:00 pm. (2) HTN (hypertension): per V/Stol Landing Signal Officer: -- Continue Metoprolol Succinate ER 50 mg daily. -- Stop HCTZ in favor of Dyazide 37.5-25 mg daily to reduce the risk of hypokalemia. (3) Hypokalemia: likely secondary to chronic HCTZ use: Recommend the following: -- Stop HCTZ. -- Discharge to home on Dyazide 37.5-25 mg daily. -- check BMP, Mg in 1 week on ff up with PCP Present on Admission?: Yes (4) breast cancer L status post surgery radiation Hyperglycemia, likely prediabetes outpatient hemoglobin A1c 5.8 last month d.c home ff up with PCP as outlined in DC summary ff up with V/Stol Landing Signal Officer as scheduled (2) New onset atrial fibrillation: management as noted above Subjective ff up for a fib seen resting in bed, comfortable states she feels better overall denies chest pain, dizziness, palpitations no new complaints states she is ready and would like to be discharged Review of Systems Review of Systems: All systems reviewed & are unremarkable except as noted in HPI & below Physical Exam Physical Exam: General- oriented x 3, not in distress, speaks in sentences with no effort or accessory muscle use Eyes- anicteric Neck- no JVD Lungs- clear breath sounds bilaterally, no rales/wheezes Heart- normal rate,regular rhythm; no murmurs Abdomen- normal bowel sounds, nondistended, soft, nontender Extremities- no pretibial edema, no calf tenderness Neuro- alert, oriented x 3; no gross focal neurologic deficits Skin- warm & dry Results & Data Laboratory Results all noted and reviewed
--- NOTE | 2018-10-23 18:51 | Discharge Summary ---
Date of Service October 23, 2018 Admission HPI Per Admitting Provider History obtained from patient, family, and records. Medical history significant for hypertension, L breast cancer status post surgery radiation. Patient roused from sleep this morning with palpitations, chest fluttering and slight heaviness, No S OB. Transient episode last week. Denies unusual stress. Compliant with home meds. SBP at home 180s. At the ER, patient noted to be in rapid A. fib. Cardiac rate 150s. IV Lopressor, Cardizem, NSS boluses administered. IV heparin initiated at the ER. Subsequent heart rhythm conversion to NSR. 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 Admission Exam Per Admitting Provider GENERAL: Slightly uncomfortable, obese, pleasant, no respiratory distress SKIN: Normal color, warm HEENT: [place] palpebral conjunctivae, no ptosis, chronic lower lip asymmetry, moist buccal mucosa NECK : Supple, short, no tenderness CHEST : Decreased breath sounds, no tenderness HEART : RRR, no obvious murmurs ABDOMEN: distention, nontender EXTREMITIES : Chronic Edu LE swelling, no LE tenderness, no other conspicuous deformities noted NEUROLOGIC : Coherent, chronic lower facial asymmetry, no other gross focality Principal Diagnosis ATRIAL FIBRILLATION Discharge Exam General- oriented x 3, not in distress, speaks in sentences with no effort or accessory muscle use Eyes- anicteric Neck- no JVD Lungs- clear breath sounds bilaterally, no rales/wheezes Heart- normal rate,regular rhythm; no murmurs Abdomen- normal bowel sounds, nondistended, soft, nontender Extremities- no pretibial edema, no calf tenderness Neuro- alert, oriented x 3; no gross focal neurologic deficits Skin- warm & dry Discharge Data Allergies Allergy/AdvReac Type Severity Reaction Status Date / Time No Known Allergies Allergy Unverified 10/15/18 01:55 Consultations 10/15/18 03:49 ED Decision to Admit Stat 10/15/18 04:37 Consult Cardiology Routine Hospital Course (1) Atrial fibrillation with RVR: -- Subsequent conversion to NSR at the emergency room. [place] [employer] consulted Recommend the following: -- Continue Metoprolol Succinate ER 50 mg daily. -- Eliquis 5 mg bid for half-way anticoagulation. -- Stop HCTZ in favor of Dyazide 37.5-25 mg daily to reduce the risk of hypokalemia. -- Replete Potassium. -- Patient may be discharged to home from a cardiac standpoint. (2) HTN (hypertension): per [employer]: -- Continue Metoprolol Succinate ER 50 mg daily. -- Stop HCTZ in favor of Dyazide 37.5-25 mg daily to reduce the risk of hypokalemia. (3) Hypokalemia: likely secondary to chronic HCTZ use: Recommend the following: -- Stop HCTZ. -- Discharge to home on Dyazide 37.5-25 mg daily. -- check BMP, Mg in 1 week on ff up with PCP (4) breast cancer L status post surgery radiation Hyperglycemia, likely prediabetes outpatient hemoglobin A1c 5.8 last month d.c home ff up with PCP as outlined in DC summary ff up with [employer] as scheduled (2) New onset atrial fibrillation: management as noted above Total Time Total Time Spent Total Time Spent (In Minutes): 35 MINUTES Discharge Plan Discharge Items Patient Disposition: Home - Self-Care Reason For Visit: AF Discharge Diagnosis: ATRIAL FIBRILLATION Discharge Goals: Diagnostic testing and Therapeutic intervention Activity: As commented below Activity Comment: INCREASE ACTIVITY GRADUALLY TOLERATED, NO HEAVY EXERTION Lifting: Wait until after follow-up appointment Exercise/Sports: Wait until after follow-up appointment Driving/Machine Use Comment: NO DRIVING Non-emergency contact: Primary Care Provider and [employer] Call non-emergency contact if: you have any medication questions and you have a fever Follow-up/Referrals: Jsoe Gregory MD [Primary Care Provider] - 10/21/18 9:25 am Diet: Heart Healthy Add Provider Instructions: PLEASE FOLLOW UP WITH PRIMARY CARE PHYSICIAN OUTLINED ABOVE. FOLLOW UP WITH UNMANNED EQUIPMENT OPERATOR DR. WRIGHT IN 1-2 WEEKS. CALL 911 IMMEDIATELY IF WITH PALPITATIONS, CHEST PAIN, SHORTNESS OF BREATH, DIZZINESS. RETURN TO ER IMMEDIATELY IF WITH ANY HEAD TRAUMA. CALL PRIMARY CARE PHYSICIAN IMMEDIATELY IF WITH BLOOD IN THE URINE OR STOOLS. REVIEW YOUR NEW MEDICATION LIST AND FOLLOW INSTRUCTIONS CAREFULLY. Prescriptions: New metoprolol succinate 50 mg Tablet Extended Release 24 Hr 50 mg PO QAM 30 Days Qty: 30 RF: 1 triamterene-hydrochlorothiazid 37.5-25 mg Capsule 1 cap PO QAM 30 Days Qty: 30 RF: 1 Eliquis 5 mg Tablet 5 mg PO BID 30 Days Qty: 60 RF: 1 Continued multivitamin [Multiple Vitamins] Tablet 1 tab PO DAILY RF: 0 cholecalciferol (vitamin D3) [Vitamin D3] 400 unit Tablet 400 unit PO DAILY RF: 0 melatonin 5 mg Tablet 5 mg PO HS PRN (Reason: Sleep) RF: 0 Discontinued atenolol 25 mg tablet 75 mg PO DAILY RF: 0 hydrochlorothiazide 25 mg Tablet 25 mg PO DAILY RF: 0 Stand-Alone Forms: [facility] Discharge Orders: Discharge Order (Routine); Ordered 10/15/18 Ordered By: Chapo Macias Admission Data Admit Date/Time: 10/15/18 04:37 Attending Provider: Chapo Macias Admit Provider: Abdiel Camp Primary Care Provider: Jose Gregory Other Providers: Sulaiman Wright Service: Telemetry Other Interventions: Discharge Summary Assessment (RN) Last Done: 10/15/18 14:28 DC Date/Time DO NOT enter until pt leaves facility: 10/15/18 15:09
== END 2018-10-15 15:09 | disposition home or self-care (01) | DRG 309 ==
LOC: ED 01:25 → 2S 04:37
DX: T50.2X5A Adverse effect of carbonic-anhydrase inhibitors, benzothiadiazides and other diuretics, initial encounter; Z68.41 Body mass index [BMI] 40.0-44.9, adult; E87.6 Hypokalemia; I48.91 Unspecified atrial fibrillation; R73.03 Prediabetes; E66.9 Obesity, unspecified; I10 Essential (primary) hypertension; Z79.899 Other long term (current) drug therapy

== ENCOUNTER 2022-03-26 15:48 | Inpatient (IN) ==
[2022-03-26] MEDS ORDERED: METOPROLOL TARTRATE 1 MG/ML VIAL IV STA ×2 (16:14→21:06)
[2022-03-26] MEDS ORDERED: SULFAMETHOXAZOLE/TRIMETHOPRIM DS 800/160MG TAB PO ONE (16:15)
--- NOTE | 2022-03-26 16:21 | Emergency Department Note ---
Impression & Plan Atrial fibrillation with RVR, Weakness, Carbuncle and furuncle of trunk, Acute hyponatremia, Pulmonary edema ED Provider Note Provider: Fahad Fournier MD DATE OF SERVICE: 03/26/2022 CHIEF COMPLAINT: Weakness HISTORY OF PRESENT ILLNESS: Patient is a 76-year-old female history of hypertension and atrial fibrillation on Eliquis presenting here today referred from the outpatient clinic. Patient states over the last week she is been feeling bit weaker than normal and at times shaky. Denies fainting or feeling lightheaded. Denies falling. Denies chest pain or real shortness of breath. States she has noticed a little bit of increased leg swelling. States that she noticed a couple red bumps on her abdomen her is having a MRSA infection currently so went to the clinic today. Has been using some triple antibiotic cream on these areas. They prescribed her a course of Bactrim but also noted her heart rate to be significant elevated and sent her here for further care. In route the patient received 20 mg of IV diltiazem without improvement of her heart rate which was in rapid A. fib. Patient states has been taking her home medications including metoprolol and Eliquis this morning. Denies fever. REVIEW OF SYSTEMS: A total of 10 review of systems was obtained and negative except as stated above in the HPI. PAST MEDICAL HISTORY: As noted above MEDICATIONS: Reviewed home medications SOCIAL HISTORY: Lives at home with PHYSICAL EXAM: GENERAL: alert and oriented in no acute distress on stretcher Head: normocephalic and atraumatic EYES: No injection, discharge or icterus. NECK: Trachea midline. Supple. ENT: Mucous membranes pink and moist. LUNGS: Airway patent. No retractions. Breath sounds clear with some diminished bases HEART: Irregular regular tachycardic rate and rhythm. No chest wall tenderness ABDOMEN: Soft and non-tender, without guarding or rebound. There are couple scattered red pedicles noted across the upper abdomen on both sides. Minimal surrounding erythema to these. SKIN: Acyanotic, warm, dry EXTREMITIES: 2-3+ swelling of the lower extremities without significant tenderness or erythema. NEUROLOGICAL: No focal deficits. No aphasia. No facial droop or slurred speech. EK bpm atrial fibrillation with rapid ventricular response. No acute ST segment elevation noted with a QTC of 447 CONTINUOUS CARDIAC MONITORING: was ordered and showed a heart rate of 100s-150s bpm in atrial fibrillation Patient's laboratory studies and imaging reviewed. Differential includes Premature contractions, electrolyte abnormality, cardiac dysrhythmia, thyroid dysfunction, pulmonary embolism, infection, gastrointestinal, as well as other pathologies. IMPRESSION/MEDICAL DECISION MAKING: Patient history of A. fib anticoagulated however appears to be in A. fib RVR. Has a few areas of spots on the abdomen questioning MRSA given 's current treatment for this. We will give a dose of Bactrim as she has been using triple antibiotic therapy without improvement. She is to be in rapid A. fib and without significant improvement with a bolus of diltiazem we will try a dose of IV metoprolol here as well as some IV magnesium. Labs to be sent including electrolytes and troponin. Not hemodynamically unstable. Leg swelling questions possible fluid overload possibly from the A. fib. Doubt DVT/VTE given her Eliquis usage. Given persistent rapid ventricular response after the metoprolol will start on a diltiazem drip. Does have some extra fluid on the lungs on the chest x-ray again and borderline hypoxia with minimal supplementation at some point here with 2 L of nasal cannula. Sodium of 121 also likely contributing to her generalized weakness feelings. No troponin elevation of significance. Serum osm and urine osm ordered. Requires admission. Blood pressure a bit tenuous but when able Lasix. DIAGNOSIS: A. fib rapid ventricular response, carbuncles of the abdomen, pulmonary edema, hyponatremia DISPOSITION: Hospitalist will evaluate Patient was agreeable with this plan. Critical Care I have personally spent 35 minutes of critical care time in the direct management of this patient. This includes bedside care, interpretation of diagnostic studies, and testing, discussion with consultants, patient, and family members, and other required patient management activities. These 35 minutes is in excess of all separately billable procedures. 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 (01/27/15) "Abnormal left breast mammogram Status post ultrasound-guided core needle biopsy 01/25/2015 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, progesterone receptor negative, HER-2/yury negative Status post lumpectomy and sentinel lymph node biopsy 03/03/2015 Pathologic stage [id number] Status post reexcision 03/23/2015 due to positive margin no residual tumor Status post completion of radiation therapy 06/10/2015 received 6120 cGy " On 07/09/15 10:05 Siria Dunham wrote "Abnormal left breast mammogram Status post ultrasound-guided core needle biopsy 01/25/2015 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, progesterone receptor negative, HER-2/yury negative Status post lumpectomy and sentinel lymph node biopsy 03/03/2015 Pathologic stage [id number] Status post reexcision 03/23/2015 due to positive margin no residual tumor " On 07/09/15 10:05 Siria Dunham wrote "Abnormal left breast mammogram Status post ultrasound-guided core needle biopsy 01/25/2015 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, progesterone receptor negative, HER-2/yury negative Status post lumpectomy and sentinel lymph node biopsy 03/03/2015 Pathologic stage [id number] Status post reexcision 03/23/2015 due to positive margin no residual tumor " On 04/07/15 12:14 Siria Dunham wrote "Abnormal left breast mammogram Status post ultrasound-guided core needle biopsy 01/25/2015 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, progesterone receptor negative, HER-2/yury negative Status post lumpectomy and sentinel lymph node biopsy 03/03/2015 Pathologic stage [id number] Status post reexcision 03/23/2015 due to positive margin no residual tumor" On 04/07/15 12:12 Siria Dunham wrote "Abnormal left breast mammogram Status post ultrasound-guided core needle biopsy 01/25/2015 Invasive ductal carcinoma Jana receptor negative, progesterone receptor negative, HER-2/yury negative Status post lumpectomy and sentinel lymph node biopsy 03/03/2015 Pathologic stage [id number] Status post reexcision 03/23/2015 due to positive margin no residual tumor" HTN (hypertension) Morbid obesity with BMI of 40.0-44.9, adult On anticoagulant therapy eliquis daily Surgical History History of breast surgery 03/2015 reexcision of lump of left breast History of colonoscopy History of lumpectomy of left breast 02/2015 with sentinel lymph node biopsy History of needle biopsy 01/2018 left breast--malignant History of tooth extraction History of total hysterectomy with bilateral salpingo-oophorectomy (BSO) History of wisdom tooth extraction Family History Mother Family hx of colon cancer Other No family history of adverse response to anesthesia No pertinent family history Social History Smoking Status: Never smoker Second Hand Exposure: Yes ( smoked); Hx Alcohol Use: No Hx Substance Use: No Preferred Language: [place]an Communication Ability: Effective Nurse Liaison Required: No Beliefs That Will Affect Care: None Current Living Situation: Spouse Feels Safe at Home: Yes Assistive Devices: Denture - Upper and Glasses Allergies Allergies Allergy/AdvReac Type Severity Reaction Status Date / Time No Known Allergies Allergy Verified 03/26/22 17:46 Home Meds Home Medications Medication Instructions Recorded Confirmed multivitamin (Multiple Vitamins 1 tab PO QAM 10/15/18 03/26/22 tablet) apixaban 5 mg tablet 5 mg PO BID 01/29/19 03/26/22 metoprolol succinate 50 mg 50 mg PO QAM 01/29/19 03/26/22 tablet,extended release 24 hr losartan 25 mg tablet 25 mg PO DAILY 03/26/22 03/26/22 melatonin 3 mg tablet 3 mg PO HS 03/26/22 03/26/22 sulfamethoxazole 800 1 tab PO AMHS 03/26/22 03/26/22 mg-trimethoprim 160 mg tablet Results & Data (ED) Vital Signs Vital Signs - 24 hr 03/26/22 16:32 03/26/22 15:31 03/26/22 15:31 Temperature 36.6 C Temperature Source Oral Pulse Rate 151 H 151 H Pulse Rate [Finger] Pulse Rate from SpO2 Sensor Pulse Rhythm Irregular Respiratory Rate 20 Respiratory Effort / Characteristics Non-Labored Spontaneous Non-Labored Respiratory Depth Normal Normal Blood Pressure 132/95 Blood Pressure [Right Arm] Blood Pressure Mean Blood Pressure Mean [Right Arm] Pulse Oximetry 90 Oxygen Delivery Method Room Air Room Air Oxygen Flow Rate Sepsis New/Unexplained Change in Mental Status No Sepsis Action Taken by Nursing No Action Required 03/26/22 15:31 03/26/22 17:15 03/26/22 17:16 Temperature Temperature Source Pulse Rate 135 H Pulse Rate [Finger] Pulse Rate from SpO2 Sensor 118 H Pulse Rhythm Respiratory Rate 25 H Respiratory Effort / Characteristics Respiratory Depth Blood Pressure 83/60 L Blood Pressure [Right Arm] Blood Pressure Mean 67 Blood Pressure Mean [Right Arm] Pulse Oximetry 96 95 Oxygen Delivery Method Room Air Oxygen Flow Rate Sepsis New/Unexplained Change in Mental Status Sepsis Action Taken by Nursing 03/26/22 17:16 03/26/22 17:18 03/26/22 17:18 Temperature Temperature Source Pulse Rate 138 H 140 H Pulse Rate [Finger] Pulse Rate from SpO2 Sensor 135 H 117 H Pulse Rhythm Respiratory Rate 23 24 Respiratory Effort / Characteristics Respiratory Depth Blood Pressure Blood Pressure [Right Arm] Blood Pressure Mean 81 Blood Pressure Mean [Right Arm] Pulse Oximetry 95 91 Oxygen Delivery Method Oxygen Flow Rate Sepsis New/Unexplained Change in Mental Status Sepsis Action Taken by Nursing 03/26/22 17:20 03/26/22 17:21 03/26/22 17:21 Temperature Temperature Source Pulse Rate 133 H 132 H Pulse Rate [Finger] Pulse Rate from SpO2 Sensor 121 H 123 H Pulse Rhythm Respiratory Rate 21 24 Respiratory Effort / Characteristics Respiratory Depth Blood Pressure 99/80 L Blood Pressure [Right Arm] Blood Pressure Mean 86 Blood Pressure Mean [Right Arm] Pulse Oximetry 96 95 Oxygen Delivery Method Oxygen Flow Rate Sepsis New/Unexplained Change in Mental Status Sepsis Action Taken by Nursing 03/26/22 17:25 03/26/22 17:25 03/26/22 17:30 Temperature Temperature Source Pulse Rate 152 H 145 H Pulse Rate [Finger] Pulse Rate from SpO2 Sensor 119 H 140 H Pulse Rhythm Respiratory Rate 21 27 H Respiratory Effort / Characteristics Respiratory Depth Blood Pressure 82/52 L Blood Pressure [Right Arm] Blood Pressure Mean 62 Blood Pressure Mean [Right Arm] Pulse Oximetry 95 94 Oxygen Delivery Method Oxygen Flow Rate Sepsis New/Unexplained Change in Mental Status Sepsis Action Taken by Nursing 03/26/22 17:32 03/26/22 17:33 03/26/22 17:33 Temperature Temperature Source Pulse Rate 137 H 142 H Pulse Rate [Finger] Pulse Rate from SpO2 Sensor 124 H 134 H Pulse Rhythm Respiratory Rate 20 28 H Respiratory Effort / Characteristics Respiratory Depth Blood Pressure 89/45 L Blood Pressure [Right Arm] Blood Pressure Mean 59 Blood Pressure Mean [Right Arm] Pulse Oximetry 92 94 Oxygen Delivery Method Oxygen Flow Rate Sepsis New/Unexplained Change in Mental Status Sepsis Action Taken by Nursing 03/26/22 17:35 03/26/22 17:36 03/26/22 17:36 Temperature Temperature Source Pulse Rate 137 H 142 H Pulse Rate [Finger] Pulse Rate from SpO2 Sensor 133 H 130 H Pulse Rhythm Respiratory Rate 22 21 Respiratory Effort / Characteristics Respiratory Depth Blood Pressure 98/81 L Blood Pressure [Right Arm] Blood Pressure Mean 86 Blood Pressure Mean [Right Arm] Pulse Oximetry 89 L 96 Oxygen Delivery Method Oxygen Flow Rate Sepsis New/Unexplained Change in Mental Status Sepsis Action Taken by Nursing 03/26/22 17:40 03/26/22 17:40 03/26/22 17:45 Temperature Temperature Source Pulse Rate 138 H Pulse Rate [Finger] Pulse Rate from SpO2 Sensor 140 H Pulse Rhythm Respiratory Rate 21 Respiratory Effort / Characteristics Respiratory Depth Blood Pressure 111/75 108/74 Blood Pressure [Right Arm] Blood Pressure Mean 87 85 Blood Pressure Mean [Right Arm] Pulse Oximetry 97 Oxygen Delivery Method Oxygen Flow Rate Sepsis New/Unexplained Change in Mental Status Sepsis Action Taken by Nursing 03/26/22 17:45 03/26/22 17:50 03/26/22 17:51 Temperature Temperature Source Pulse Rate 146 H 156 H 135 H Pulse Rate [Finger] Pulse Rate from SpO2 Sensor 151 H 152 H 135 H Pulse Rhythm Respiratory Rate 22 19 25 H Respiratory Effort / Characteristics Respiratory Depth Blood Pressure Blood Pressure [Right Arm] Blood Pressure Mean Blood Pressure Mean [Right Arm] Pulse Oximetry 98 96 96 Oxygen Delivery Method Oxygen Flow Rate Sepsis New/Unexplained Change in Mental Status Sepsis Action Taken by Nursing 03/26/22 17:51 03/26/22 17:55 03/26/22 17:55 Temperature Temperature Source Pulse Rate 136 H Pulse Rate [Finger] Pulse Rate from SpO2 Sensor 112 H Pulse Rhythm Respiratory Rate 23 Respiratory Effort / Characteristics Respiratory Depth Blood Pressure 107/89 103/74 Blood Pressure [Right Arm] Blood Pressure Mean 95 83 Blood Pressure Mean [Right Arm] Pulse Oximetry 95 Oxygen Delivery Method Oxygen Flow Rate Sepsis New/Unexplained Change in Mental Status Sepsis Action Taken by Nursing 03/26/22 18:00 03/26/22 18:01 03/26/22 18:01 Temperature Temperature Source Pulse Rate 143 H 133 H Pulse Rate [Finger] Pulse Rate from SpO2 Sensor 142 H 122 H Pulse Rhythm Respiratory Rate 14 19 Respiratory Effort / Characteristics Respiratory Depth Blood Pressure 89/75 L Blood Pressure [Right Arm] Blood Pressure Mean 79 Blood Pressure Mean [Right Arm] Pulse Oximetry 92 93 Oxygen Delivery Method Oxygen Flow Rate Sepsis New/Unexplained Change in Mental Status Sepsis Action Taken by Nursing 03/26/22 18:05 03/26/22 18:06 03/26/22 18:06 Temperature Temperature Source Pulse Rate 127 H 141 H Pulse Rate [Finger] Pulse Rate from SpO2 Sensor 118 H 128 H Pulse Rhythm Respiratory Rate 24 23 Respiratory Effort / Characteristics Respiratory Depth Blood Pressure Blood Pressure [Right Arm] Blood Pressure Mean 43 Blood Pressure Mean [Right Arm] Pulse Oximetry 96 95 Oxygen Delivery Method Oxygen Flow Rate Sepsis New/Unexplained Change in Mental Status Sepsis Action Taken by Nursing 03/26/22 18:07 03/26/22 18:07 03/26/22 18:10 Temperature Temperature Source Pulse Rate 148 H Pulse Rate [Finger] Pulse Rate from SpO2 Sensor 152 H Pulse Rhythm Respiratory Rate 23 Respiratory Effort / Characteristics Respiratory Depth Blood Pressure 105/80 113/82 Blood Pressure [Right Arm] Blood Pressure Mean 88 92 Blood Pressure Mean [Right Arm] Pulse Oximetry 91 Oxygen Delivery Method Oxygen Flow Rate Sepsis New/Unexplained Change in Mental Status Sepsis Action Taken by Nursing 03/26/22 18:10 03/26/22 18:15 03/26/22 18:15 Temperature Temperature Source Pulse Rate 138 H 141 H Pulse Rate [Finger] Pulse Rate from SpO2 Sensor 131 H 144 H Pulse Rhythm Respiratory Rate 23 22 Respiratory Effort / Characteristics Respiratory Depth Blood Pressure 97/70 L Blood Pressure [Right Arm] Blood Pressure Mean 79 Blood Pressure Mean [Right Arm] Pulse Oximetry 97 97 Oxygen Delivery Method Oxygen Flow Rate Sepsis New/Unexplained Change in Mental Status Sepsis Action Taken by Nursing 03/26/22 18:20 03/26/22 18:20 03/26/22 18:25 Temperature Temperature Source Pulse Rate 144 H 152 H Pulse Rate [Finger] Pulse Rate from SpO2 Sensor 142 H 151 H Pulse Rhythm Respiratory Rate 27 H 21 Respiratory Effort / Characteristics Respiratory Depth Blood Pressure 116/89 Blood Pressure [Right Arm] Blood Pressure Mean 98 Blood Pressure Mean [Right Arm] Pulse Oximetry 97 94 Oxygen Delivery Method Oxygen Flow Rate Sepsis New/Unexplained Change in Mental Status Sepsis Action Taken by Nursing 03/26/22 18:30 03/26/22 18:35 03/26/22 18:36 Temperature Temperature Source Pulse Rate 149 H 150 H 157 H Pulse Rate [Finger] Pulse Rate from SpO2 Sensor 155 H 144 H 129 H Pulse Rhythm Respiratory Rate 22 24 21 Respiratory Effort / Characteristics Respiratory Depth Blood Pressure Blood Pressure [Right Arm] Blood Pressure Mean Blood Pressure Mean [Right Arm] Pulse Oximetry 97 97 97 Oxygen Delivery Method Oxygen Flow Rate Sepsis New/Unexplained Change in Mental Status Sepsis Action Taken by Nursing 03/26/22 18:36 03/26/22 18:40 03/26/22 18:40 Temperature Temperature Source Pulse Rate 145 H Pulse Rate [Finger] Pulse Rate from SpO2 Sensor 133 H Pulse Rhythm Respiratory Rate 20 Respiratory Effort / Characteristics Respiratory Depth Blood Pressure 132/85 103/87 Blood Pressure [Right Arm] Blood Pressure Mean 100 92 Blood Pressure Mean [Right Arm] Pulse Oximetry 96 Oxygen Delivery Method Oxygen Flow Rate Sepsis New/Unexplained Change in Mental Status Sepsis Action Taken by Nursing 03/26/22 18:45 03/26/22 18:50 03/26/22 19:00 Temperature Temperature Source Pulse Rate 139 H 170 H Pulse Rate [Finger] 134 H Pulse Rate from SpO2 Sensor 153 H 145 H Pulse Rhythm Respiratory Rate 21 20 17 Respiratory Effort / Characteristics Non-Labored Spontaneous Respiratory Depth Normal Blood Pressure 106/56 L Blood Pressure [Right Arm] 106/78 Blood Pressure Mean 72 Blood Pressure Mean [Right Arm] 87 Pulse Oximetry 91 95 94 Oxygen Delivery Method Oxygen Flow Rate Sepsis New/Unexplained Change in Mental Status Sepsis Action Taken by Nursing 03/26/22 19:10 Temperature Temperature Source Pulse Rate 151 H Pulse Rate [Finger] Pulse Rate from SpO2 Sensor Pulse Rhythm Respiratory Rate Respiratory Effort / Characteristics Respiratory Depth Blood Pressure 110/87 Blood Pressure [Right Arm] Blood Pressure Mean Blood Pressure Mean [Right Arm] Pulse Oximetry 98 Oxygen Delivery Method Nasal Cannula Oxygen Flow Rate 2 Sepsis New/Unexplained Change in Mental Status Sepsis Action Taken by Nursing Laboratory Data Result diagrams: 03/26/22 16:13 03/26/22 16:13 Lab Results 03/26/22 03/26/22 03/26/22 Range/Units 16:13 16:13 16:13 WBC 6.18 (4.8-10.8) K/ul RBC 4.69 (3.93-5.22) M/uL Hgb 14.1 (12.0-16.0) g/dl Hct 41.5 (34.1-44.9) % MCV 88.5 (80.0-100.0) fL MCH 30.1 (25.0-34.0) pg MCHC 34.0 (32.0-36.0) g/dL RDW Std Deviation 49.2 H (36.4-46.3) fL RDW Coeff of Carlita 15.3 H (11.5-14.5) % Plt Count 217 (130-400) K/uL MPV 9.8 (9.4-12.3) fL Immature Gran % (Auto) 0.3 % Neut % (Auto) 81.4 % Lymph % (Auto) 9.9 % [place] % (Auto) 7.9 % Eos % (Auto) 0.0 % Baso % (Auto) 0.5 % Neut # (Auto) 5.03 (1.4-6.5) K/uL Lymph # (Auto) 0.61 L (1.2-3.4) K/uL [place] # (Auto) 0.49 (0.24-0.82) K/uL Eos # (Auto) 0.00 (0-0.50) K/uL Baso # (Auto) 0.03 (0-0.2) K/uL Immature Gran # (Auto) 0.02 (0.00-0.02) K/uL PT Cancelled INR Cancelled APTT Cancelled PTT Ratio Cancelled Sodium 121 L (136-145) mmol/L Potassium 5.1 (3.5-5.1) mmol/L Chloride 90 L (98-107) mmol/L Carbon Dioxide 24 (21-32) mmol/L Anion Gap 7 (3-11) BUN 10 (6-23) mg/dl Creatinine 0.52 L (0.6-1.2) mg/dl Est Cr Clr Drug Dosing 114.7 ml/min Est GFR ( Amer) 107.6 ml/min Est GFR (Non-Af Amer) 92.8 ml/min BUN/Creatinine Ratio 19.2 (10-20) Glucose 117 H (70-99(Fasting)) mg/dl Osmolality (280-300) mOsm/kg Calcium 9.3 (8.5-10.1) mg/dl Magnesium 2.1 (1.7-2.4) mg/dl Total Bilirubin 1.5 H (0.2-1.0) mg/dl AST 24 (13-39) U/L ALT 12 (7-52) U/L Alkaline Phosphatase 73 (34-104) U/L Troponin I High Sens 15.9 H (0-14) pg/ml Total Protein 6.6 (6.0-8.3) gm/dl Albumin 3.1 L (3.4-5.0) gm/dl Globulin 3.5 (2.5-4.0) gm/dl Albumin/Globulin Ratio 0.9 (0.9-2) TSH (0.300-4.500) uIu/ml SARS-CoV-2, RNA, NAAT (NEGATIVE) 03/26/22 03/26/22 03/26/22 Range/Units 16:13 16:13 16:13 WBC (4.8-10.8) K/ul RBC (3.93-5.22) M/uL Hgb (12.0-16.0) g/dl Hct (34.1-44.9) % MCV (80.0-100.0) fL MCH (25.0-34.0) pg MCHC (32.0-36.0) g/dL RDW Std Deviation (36.4-46.3) fL RDW Coeff of Carlita (11.5-14.5) % Plt Count (130-400) K/uL MPV (9.4-12.3) fL Immature Gran % (Auto) % Neut % (Auto) % Lymph % (Auto) % [place] % (Auto) % Eos % (Auto) % Baso % (Auto) % Neut # (Auto) (1.4-6.5) K/uL Lymph # (Auto) (1.2-3.4) K/uL [place] # (Auto) (0.24-0.82) K/uL Eos # (Auto) (0-0.50) K/uL Baso # (Auto) (0-0.2) K/uL Immature Gran # (Auto) (0.00-0.02) K/uL PT INR APTT PTT Ratio Sodium (136-145) mmol/L Potassium (3.5-5.1) mmol/L Chloride (98-107) mmol/L Carbon Dioxide (21-32) mmol/L Anion Gap (3-11) BUN (6-23) mg/dl Creatinine (0.6-1.2) mg/dl Est Cr Clr Drug Dosing ml/min Est GFR ( Amer) ml/min Est GFR (Non-Af Amer) ml/min BUN/Creatinine Ratio (10-20) Glucose (70-99(Fasting)) mg/dl Osmolality 257 L (280-300) mOsm/kg Calcium (8.5-10.1) mg/dl Magnesium (1.7-2.4) mg/dl Total Bilirubin (0.2-1.0) mg/dl AST (13-39) U/L ALT (7-52) U/L Alkaline Phosphatase (34-104) U/L Troponin I High Sens (0-14) pg/ml Total Protein (6.0-8.3) gm/dl Albumin (3.4-5.0) gm/dl Globulin (2.5-4.0) gm/dl Albumin/Globulin Ratio (0.9-2) TSH 1.779 (0.300-4.500) uIu/ml SARS-CoV-2, RNA, NAAT NEGATIVE (NEGATIVE) Administered Medications Diltiazem HCl 125 mg/ Dextrose 125 mls @ 5 mls/hr IV .Q24H LINDA; Protocol Stop: 04/25/22 16:44 Last Admin: 03/26/22 17:13 Dose: 5 mg/hr, 5 mls/hr Documented By: BURT Co-signed By: OLAF Metoprolol Tartrate (Metoprolol Tartrate 1 Mg/Ml Vial) 5 mg IV Q6H PRN PRN Reason: Tachycardia Stop: 04/25/22 21:59 Last Admin: 03/26/22 19:02 Dose: 5 mg Documented By: BENNY Discontinued Medications Apixaban (Apixaban 5 Mg Tablet) 5 mg PO BID ONE Stop: 03/26/22 17:41 Last Admin: 03/26/22 17:44 Dose: 5 mg Documented By: BURT Magnesium Sulfate/Dextrose (Magnesium Sulfate / D5w) 1 gm in 100 mls @ 200 mls/hr IV Q30M LINDA Stop: 03/26/22 17:14 Last Infusion: 03/26/22 18:46 Dose: 0 mls/hr Documented By: Admin: 03/26/22 17:45 Dose: 200 mls/hr Documented By: Infusion: 03/26/22 17:39 Dose: 0 mls/hr Documented By: Admin: 03/26/22 17:17 Dose: 200 mls/hr Documented By: BURT Metoprolol Tartrate (Metoprolol Tartrate 1 Mg/Ml Vial) 5 mg IV NOW STA Stop: 03/26/22 16:15 Last Admin: 03/26/22 16:32 Dose: 5 mg Documented By: BURT Metoprolol Tartrate (Metoprolol Tartrate 1 Mg/Ml Vial) Confirm Administered Dose 5 mg IV .STK-MED ONE Stop: 03/26/22 18:59 Last Admin: 03/26/22 19:01 Dose: Not Given Documented By: BENNY Miscellaneous (Stat Iv Infusion Titration Per Protocol) 1 each N/A NOW STA Stop: 03/26/22 16:38 Last Admin: 03/26/22 18:45 Dose: 1 each Documented By: BURT Trimethoprim/Sulfamethoxazole (Sulfamethoxazole/Trimethoprim Ds 800/160mg Tab) 1 tab PO NOW ONE Stop: 03/26/22 16:16 Last Admin: 03/26/22 16:32 Dose: 1 tab Documented By: BURT Imaging Data Radiologist's Impression: Chest X-Ray 03/26/22 16:14 SINGLE VIEW CHEST CLINICAL HISTORY: Dysrhythmia. Lower extremity edema FINDINGS: An AP, portable, upright chest radiograph is compared to study dated 10/15/2018. The heart is enlarged noting atherosclerotic calcification of the thoracic. There is pulmonary vascular congestion. There are small pleural effusions, right larger than left with right basilar consolidation. No pneumothorax is seen. The skeletal structures are osteopenic. The bony thorax is grossly intact. Arthritic change is seen in the shoulders. IMPRESSION: 1. Cardiomegaly with pulmonary vascular congestion. 2. Right larger than left pleural effusions with bibasilar consolidation. ACT 112: Negative or not required by law. Electronically signed by: Burke Hernandez M.D. 03/26/2022 4:44 PM Discharge Plan Visit Data Chief Complaint: Cardiac Assessment ED Provider: Fahad Fournier Discharge Problem: Atrial fibrillation with RVR, Weakness, Carbuncle and furuncle of trunk, Acute hyponatremia, Pulmonary edema Patient Disposition: Being Evaluated by Hospitalist Discharge Instructions Interventions: ED Discharge Assessment Last Done: 03/26/22 19:10 Forms Stand Alone Forms: My [facility] Prescriptions Prescriptions: No Action metoprolol succinate 50 mg tablet extended release 24 hr 50 mg PO QAM apixaban 5 mg tablet 5 mg PO BID multivitamin [Multiple Vitamins] Tablet 1 tab PO QAM melatonin 3 mg Tablet 3 mg PO HS sulfamethoxazole-trimethoprim 800-160 mg tablet 1 tab PO AMHS losartan 25 mg tablet 25 mg PO DAILY Referrals Referrals: Jose Gregory MD [Outside Practitioners] - : Pulmonary edema Qualifiers: Chronicity: acute Qualified Code(s): J81.0 - Acute pulmonary edema
[2022-03-26] MEDS ORDERED: STAT IV Infusion **Titration per Protocol STA (16:37)
[2022-03-26 16:42] LABS: Basophils # (auto) 0.03 K/uL (0-0.2); Basophils % (auto) 0.5 %; Hematocrit (blood only) 41.5 % (34.1-44.9); Hemoglobin 14.1 g/dl (12.0-16.0); Immature Granulocytes # (auto) 0.02 K/uL (0.00-0.02); Immature Granulocytes % (auto) 0.3 %; Lymphocytes # (auto) 0.61 K/uL (1.2-3.4); Lymphocytes % (auto) 9.9 %; Mean Corpuscular Hemoglobin 30.1 pg (25.0-34.0); Mean Corpuscular Volume 88.5 fL (80.0-100.0); Mean Platelet Volume 9.8 fL (9.4-12.3); Monocytes # (auto) 0.49 K/uL (0.24-0.82); Monocytes % (auto) 7.9 %; Neutrophils # (auto) 5.03 K/uL (1.4-6.5); Neutrophils % (auto) 81.4 %; Platelet Count 217 K/uL (130-400); RDW Coefficient of Variation 15.3 % (11.5-14.5); RDW Standard Deviation 49.2 fL (36.4-46.3); Red Blood Count 4.69 M/uL (3.93-5.22); White Blood Count 6.18 K/ul (4.8-10.8)
[2022-03-26] MEDS ORDERED: dilTIAZem HCL 125 MG in DEXTROSE 5% 100 ML IV SCH (16:45)
--- NOTE | 2022-03-26 16:47 | XRay Report ---
SINGLE VIEW CHEST CLINICAL HISTORY: Dysrhythmia. Lower extremity edema FINDINGS: An AP, portable, upright chest radiograph is compared to study dated 10/15/2018. The heart i s enlarged noting atherosclerotic calcification of the thoracic. There is pulmonary vascular congesti on. There are small pleural effusions, right larger than left with right basilar consolidation. No pn eumothorax is seen. The skeletal structures are osteopenic. The bony thorax is grossly intact. Arthri tic change is seen in the shoulders. IMPRESSION: 1. Cardiomegaly with pulmonary vascular congestion. 2. Right larger than left pleural effusions with bibasilar consolidation. ACT 112: Negative or not required by law. Electronically signed by: Burke Hernandez M.D. 03/26/2022 4:44 PM
[2022-03-26 17:06] LABS: Albumin Globulin Ratio 0.9 (0.9-2); Albumin Level 3.1 gm/dl (3.4-5.0); BUN Creatinine Ratio 19.2 (10-20); Bilirubin,Total 1.5 mg/dl (0.2-1.0); Calcium 9.3 mg/dl (8.5-10.1); Creatinine Clr Calc Pharmacy 114.7 ml/min; Est GFR (African American) 107.6 ml/min; Est GFR (Non-African American) 92.8 ml/min; Globulin 3.5 gm/dl (2.5-4.0); Magnesium 2.1 mg/dl (1.7-2.4); Potassium 5.1 mmol/L (3.5-5.1); Total Protein 6.6 gm/dl (6.0-8.3)
[2022-03-26 17:08] LABS: Troponin I High Sensitivity 15.9 pg/ml (0-14)
[2022-03-26] MEDS: MAGNESIUM SULFATE / D5W 1 GM/100 ML BAG IV SCH ×2 (17:17→17:45)
[2022-03-26] MEDS ORDERED: APIXABAN 5 MG TABLET PO ONE (17:40)
--- NOTE | 2022-03-26 18:09 | History & Physical Report ---
Date of Service March 26, 2022 Assessment & Plan (1) Atrial fibrillation with RVR: Plan: History of paroxysmal atrial fibrillation on beta-vilma 1 week history of weakness and shortness of breath on exertion Has A. fib with RVR Has been started with intravenous diltiazem and receiving IV beta-vilma as well Will get cardiology evaluation Echo of the heart to evaluate LV function Continue Eliquis (2) Acute hyponatremia: Plan: Noted to have hyponatremia with a level of 121 No history of nausea vomiting ,diarrhea or any infection except carbuncle of the abdominal wall No use of diuretics Likely secondary to poor intake Will recheck potassium level, get urinary lites and osmolalities (3) Weakness: Plan: Likely due to combination of hyponatremia and also heart failure (4) Pulmonary edema: Plan: Likely has acute diastolic heart failure secondary A. fib with RVR Chest x-ray suggestive of congestion Very cautious to use any diuretics given hyponatremia Will await sodium level to go up before using diuretics (5) HTN (hypertension): Plan: Blood pressure is stable Noted to be low blood pressure on starting IV diltiazem (6) Carbuncle and furuncle of trunk: Plan: Received Bactrim Will give Keflex orally and stop Bactrim DVT prophylax On Eliquis CODE STATUS Full History of Present Illness Chief Complaint: Weakness, shortness of breath on exertion and leg swelling for the last 1 week Primary Care Provider: Sadie Lafleur MD She is a 76 years old obese female with significant past medical history of paroxysmal atrial fibrillation, hypertension, hyperlipidemia, chronic rhinitis and history of breast cancer apparently has been complaining of generally weak and not feeling well for the last 1 week. This has been associated with shortness of breath on exertion without any chest pain and/or palpitation. She also noticed to have swelling of the legs but did not know if she has gained any weight or not. She denies any fever and or chills, any nausea no vomiting, any problem with urine and or bowel habit. She does not have any visual and/or other neurological symptoms. She also had a few pimples in the abdominal wall and she has been taking Bactrim for that given by her primary care physician. She was noted to have A. fib with RVR in the emergency room with pulmonary vascular congestion in chest x-ray with a hyponatremia of 121. She was admitted to telemetry unit for continuation of care after starting intravenous diltiazem drip to control the heart rate. Allergies Allergy/AdvReac Type Severity Reaction Status Date / Time No Known Allergies Allergy Verified 03/26/22 17:46 Home Medications Medication Instructions Recorded Confirmed Type multivitamin (Multiple Vitamins 1 tab PO QAM 10/15/18 03/26/22 History tablet) apixaban 5 mg tablet 5 mg PO BID 01/29/19 03/26/22 History metoprolol succinate 50 mg 50 mg PO QAM 01/29/19 03/26/22 History tablet,extended release 24 hr losartan 25 mg tablet 25 mg PO DAILY 03/26/22 03/26/22 History melatonin 3 mg tablet 3 mg PO HS 03/26/22 03/26/22 History sulfamethoxazole 800 1 tab PO AMHS 03/26/22 03/26/22 History mg-trimethoprim 160 mg tablet 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 (01/27/15) "Abnormal left breast mammogram Status post ultrasound-guided core needle biopsy 01/25/2015 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, progesterone receptor negative, HER-2/yury negative Status post lumpectomy and sentinel lymph node biopsy 03/03/2015 Pathologic stage [id number] Status post reexcision 03/23/2015 due to positive margin no residual tumor Status post completion of radiation therapy 06/10/2015 received 6120 cGy " On 07/09/15 10:05 Siria Dunham wrote "Abnormal left breast mammogram Status post ultrasound-guided core needle biopsy 01/25/2015 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, progesterone receptor negative, HER-2/yury negative Status post lumpectomy and sentinel lymph node biopsy 03/03/2015 Pathologic stage [id number] Status post reexcision 03/23/2015 due to positive margin no residual tumor " On 07/09/15 10:05 Siria Dunham wrote "Abnormal left breast mammogram Status post ultrasound-guided core needle biopsy 01/25/2015 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, progesterone receptor negative, HER-2/yury negative Status post lumpectomy and sentinel lymph node biopsy 03/03/2015 Pathologic stage [id number] Status post reexcision 03/23/2015 due to positive margin no residual tumor " On 04/07/15 12:14 Siria Dunham wrote "Abnormal left breast mammogram Status post ultrasound-guided core needle biopsy 01/25/2015 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, progesterone receptor negative, HER-2/yury negative Status post lumpectomy and sentinel lymph node biopsy 03/03/2015 Pathologic stage [id number] Status post reexcision 03/23/2015 due to positive margin no residual tumor" On 04/07/15 12:12 Siria Dunham wrote "Abnormal left breast mammogram Status post ultrasound-guided core needle biopsy 01/25/2015 Invasive ductal carcinoma Jana receptor negative, progesterone receptor negative, HER-2/yury negative Status post lumpectomy and sentinel lymph node biopsy 03/03/2015 Pathologic stage [id number] Status post reexcision 03/23/2015 due to positive margin no residual tumor" HTN (hypertension) Morbid obesity with BMI of 40.0-44.9, adult On anticoagulant therapy eliquis daily Surgical History History of breast surgery 03/2015 reexcision of lump of left breast History of colonoscopy History of lumpectomy of left breast 02/2015 with sentinel lymph node biopsy History of needle biopsy 01/2018 left breast--malignant History of tooth extraction History of total hysterectomy with bilateral salpingo-oophorectomy (BSO) History of wisdom tooth extraction Family History Mother Family hx of colon cancer Other No family history of adverse response to anesthesia No pertinent family history Social History Smoking Status: Never smoker Second Hand Exposure: Yes ( smoked); Hx Alcohol Use: No Hx Substance Use: No Preferred Language: Frisian Communication Ability: Effective Build Manager Required: No Beliefs That Will Affect Care: None Current Living Situation: Spouse Other Information That Helps Us Care for You: No Feels Safe at Home: Yes Safety Concerns: Feels Safe At This Time Assistive Devices: None Review of Systems Review of Systems: All systems reviewed and are unremarkable except as mentioned in H&P Physical Exam Physical Exam: Lying in bed with minimal distress Constitutional: well developed, well nourished, + ill appearing and + obese Eyes: PERRL, conjunctivae normal, anicteric sclerae Neck: trachea midline, no thyromegaly Respiratory: no respiratory distress Auscultation: + diminished lung sounds and + crackles (Minimal crackles at the bases) Cardiovascular: Rate/Rhythm: + tachycardic and + irregularly irregular Heart Sounds: normal S1 and normal S2; no murmur Extremities: + edema (2+ edema bilaterally) Gastrointestinal (Abdomen): Inspection/Auscultation: normal bowel sounds; abdomen not distended Percussion/Palpation: abdomen soft; abdomen nontender A few small boils with ulceration involving the anterior abdominal wall with surrounding inflammation but no drainage Musculoskeletal: No acute arthritis in any joint Neurologic: Alert, awake and oriented x3. No focal sensory or no motor deficit appreciated Psychiatric: A+Ox3, euthymic affect Lymphatic: no cervical or axillary lymphadenopathy Results & Data Results & Data ([facility]) Vital Signs (Past 12 Hours) Vital Signs Temp Pulse Resp BP Pulse Ox O2 Del Method 03/26/22 15:31 96 Room Air 03/26/22 15:31 36.6 C 151 H 20 90 Room Air 03/26/22 15:31 Room Air 03/26/22 16:32 151 H 132/95 Laboratory Results Short CBC 03/26/22 Range/Units 16:13 WBC 6.18 (4.8-10.8) K/ul Hgb 14.1 (12.0-16.0) g/dl Hct 41.5 (34.1-44.9) % Plt Count 217 (130-400) K/uL BMP 03/26/22 16:13 Sodium 121 L Potassium 5.1 Chloride 90 L Carbon Dioxide 24 BUN 10 Creatinine 0.52 L Glucose 117 H Calcium 9.3 Liver Function 03/26/22 Range/Units 16:13 Total Bilirubin 1.5 H (0.2-1.0) mg/dl AST 24 (13-39) U/L ALT 12 (7-52) U/L Alkaline Phosphatase 73 (34-104) U/L Albumin 3.1 L (3.4-5.0) gm/dl Medications Administered Current Inpatient Medications Diltiazem HCl 125 mg/ Dextrose 125 mls @ 5 mls/hr IV .Q24H [facility]; Protocol Stop: 04/25/22 16:44 Last Admin: 03/26/22 17:13 Dose: 5 mg/hr, 5 mls/hr Code Status & VTE Plan VTE Prophylaxis Plan VTE Prophylaxis will be ordered: Yes (1) Pulmonary edema Chronicity: acute Qualified Code(s): J81.0 - Acute pulmonary edema
[2022-03-26] MEDS ORDERED: METOPROLOL TARTRATE 1 MG/ML VIAL IV ONE (18:58)
[2022-03-26] MEDS: METOPROLOL TARTRATE 1 MG/ML VIAL IV PRN (19:02)
[2022-03-26 19:31] LABS: INR 1.2 (0.9-1.1); Partial Thromboplastin Ratio 1.3; Partial Thromboplastin Time 34.7 Seconds (21.0-31.0)
[2022-03-26] MEDS: cephALEXin 500 MG CAP PO SCH (20:42)
[2022-03-26] MEDS: APIXABAN 5 MG TABLET PO SCH (20:47)
[2022-03-26] MEDS: MELATONIN 3 MG TAB PO SCH (20:48)
[2022-03-26] MEDS ORDERED: ALBUMIN 25% 100 mL 25 GM/100 ML VIAL IV ONE (21:06)
[2022-03-26] MEDS ORDERED: DIGOXIN 250 MCG in SYRINGE 9 ML IV STA (21:06)
[2022-03-26] MEDS ORDERED: DIGOXIN 250 MCG in SYRINGE 9 ML IV ONE (23:15)
[2022-03-26 23:59] LABS: BUN Creatinine Ratio 18.8 (10-20); Calcium 8.7 mg/dl (8.5-10.1); Creatinine Clr Calc Pharmacy 124.3 ml/min; Est GFR (African American) 110.4 ml/min; Est GFR (Non-African American) 95.3 ml/min; Potassium 4.6 mmol/L (3.5-5.1)
[2022-03-27] MEDS ORDERED: FUROSEMIDE INJ 20 MG/2 ML VIAL IV ONE ×2 (00:39→13:52)
[2022-03-27] MEDS ORDERED: ALBUMIN 25% 12.5 GM/50 ML VIAL IV ONE (00:39)
[2022-03-27] MEDS ORDERED: DIGOXIN 250 MCG in SYRINGE 9 ML IV ONE (00:40)
[2022-03-27] MEDS ORDERED: AMIODARONE IV BOLUS & DRIP IV STA (02:12)
[2022-03-27] MEDS ORDERED: STAT IV Infusion **Titration per Protocol STA (02:12)
[2022-03-27] MEDS ORDERED: 0.2 MICRON FILTER SET 1 EACH IV STA (02:12)
[2022-03-27] MEDS ORDERED: AMIODARONE / D5W 150 MG/100 ML BAG IV STA (02:34)
[2022-03-27] MEDS ORDERED: AMIODARONE / D5W 360 MG/200 ML BAG IV ONE (02:45)
[2022-03-27 04:41] LABS: Appearance Urine Clear (Clear); Bilirubin Urine Negative (Negative); Blood Urine Negative (Negative); Color Urine Yellow; Glucose Urine UA Negative (Negative); Ketones Urine Negative (Negative); Leukocyte Esterase Urine Negative (Negative); Nitrite Urine Negative (Negative); Protein Urine Negative (Negative); Specific Gravity Urine 1.007 (1.000-1.030); Urobilinogen Urine Negative (Negative)
[2022-03-27 04:56] LABS: Urine Potassium 24.8 mmol/L
[2022-03-27 06:17] LABS: Basophils # (auto) 0.03 K/uL (0-0.2); Basophils % (auto) 0.6 %; Hematocrit (blood only) 38.3 % (34.1-44.9); Hemoglobin 13.2 g/dl (12.0-16.0); Immature Granulocytes # (auto) 0.03 K/uL (0.00-0.02); Immature Granulocytes % (auto) 0.6 %; Lymphocytes # (auto) 0.43 K/uL (1.2-3.4); Mean Corpuscular Hemoglobin 30.1 pg (25.0-34.0); Mean Corpuscular Hgb Conc 34.5 g/dL (32.0-36.0); Mean Corpuscular Volume 87.4 fL (80.0-100.0); Mean Platelet Volume 9.8 fL (9.4-12.3); Monocytes % (auto) 7.4 %; Neutrophils # (auto) 4.48 K/uL (1.4-6.5); Neutrophils % (auto) 83.4 %; Platelet Count 158 K/uL (130-400); RDW Coefficient of Variation 15.1 % (11.5-14.5); RDW Standard Deviation 48.6 fL (36.4-46.3); Red Blood Count 4.38 M/uL (3.93-5.22); White Blood Count 5.37 K/ul (4.8-10.8)
--- NOTE | 2022-03-27 06:23 | Communication Note ---
Date of Service: March 27, 2022 Uncontrolled A. fib rates overnight. SBP 90-1 100s. Initiate Amiodarone infusion
[2022-03-27 06:40] LABS: BUN Creatinine Ratio 20.4 (10-20); Calcium 8.9 mg/dl (8.5-10.1); Creatinine Clr Calc Pharmacy 121.8 ml/min; Est GFR (African American) 109.7 ml/min; Est GFR (Non-African American) 94.6 ml/min
[2022-03-27] MEDS: AMIODARONE / D5W 360 MG/200 ML BAG IV SCH ×2 (08:24→19:44)
[2022-03-27] MEDS: APIXABAN 5 MG TABLET PO SCH ×2 (08:25→19:45)
[2022-03-27] MEDS: cephALEXin 500 MG CAP PO SCH ×3 (08:25→19:45)
[2022-03-27] MEDS: METOPROLOL SUCC 50MG EXT REL TAB PO SCH (08:25)
[2022-03-27] MEDS: MULTIVITAMIN TAB PO SCH (08:25)
--- NOTE | 2022-03-27 08:43 | Electrocardiogram Report ---
Test Reason : Blood Pressure : / mmHG Vent. Rate : 141 BPM Atrial Rate : 250 BPM P-R Int : 000 ms QRS Dur : 088 ms QT Int : 292 ms P-R-T Axes : 000 -04 132 degrees QTc Int : 447 ms Poor data quality, interpretation may be adversely affected Atrial fibrillation with rapid ventricular response Cannot rule out Anterior infarct , age undetermined Nonspecific T wave abnormality Abnormal ECG When compared with ECG of 15-OCT-2018 03:40, Atrial fibrillation has replaced Sinus rhythm Vent. rate has increased BY 53 BPM Nonspecific T wave abnormality now evident in Inferior leads Nonspecific T wave abnormality, worse in Anterolateral leads Confirmed by Nils Antoine ([id number]) on 03/27/2022 8:43:20 AM Referred By: REFERRED SELF Confirmed By:Nils Antoine
[2022-03-27] MEDS ORDERED: LOSARTAN POTASSIUM 25 MG TAB PO SCH (09:00)
--- NOTE | 2022-03-27 09:23 | XCELERA ---
[id number]
--- NOTE | 2022-03-27 12:46 | Cardiology Consultation ---
Date of Consultation March 27, 2022 Assessment & Plan (1) Atrial fibrillation with RVR: -agree with Eliquis and metoprolol succinate. -agree with intravenous amiodarone. -can switch to oral amiodarone once she converts to sinus rhythm. -echocardiogram with borderline LV function, likely tachycardic induced. -will repeat echocardiogram as an outpatient. (2) HTN (hypertension): -adequate control on current regimen. History of Present Illness Attending Physician: Jordyn Long MD History of Present Illness Mrs. Robbins is a 76-year-old female admitted yesterday evening in atrial fibrillation with a rapid ventricular response. This consultation was ordered to assist in her cardiac management. Of note, patient is well known to me from the outpatient setting. The patient was in her usual state of health until approximately 1 week prior to presentation. She began to note significant exertional dyspnea and fatigue. She did not experience palpitations, however, her original episode of atrial fibrillation was also asymptomatic. She presented to the emergency room for further care. On arrival here, she was noted to be in atrial fibrillation with a rapid ventricular response. She was given intravenous beta-blockers and calcium channel blockers with some improvement in her ventricular response. She was then started on an amiodarone drip. She was 1st diagnosed with atrial fibrillation in October 2018. She was hypokalemic at that time. She has been maintained on rate control and long-term antico agulation without difficulty. Currently, patient is resting comfortably in bed without complaints. Past medical and surgical history 1. Hypertension 2. Paroxysmal atrial fibrillation 3. Obesity 4. Left breast carcinoma-January 2015 5. Left breast lumpectomy 6. LISA/BSO Social history and lives with her No tobacco alcohol Family history No early coronary artery disease Review of systems A 10 review systems was undertaken and negative except that described above. Allergies Allergy/AdvReac Type Severity Reaction Status Date / Time No Known Allergies Allergy Verified 03/26/22 17:46 Home Medications Medication Instructions Recorded Confirmed Type multivitamin (Multiple Vitamins 1 tab PO QAM 10/15/18 03/26/22 History tablet) apixaban 5 mg tablet 5 mg PO BID 01/29/19 03/26/22 History metoprolol succinate 50 mg 50 mg PO QAM 01/29/19 03/26/22 History tablet,extended release 24 hr losartan 25 mg tablet 25 mg PO DAILY 03/26/22 03/26/22 History melatonin 3 mg tablet 3 mg PO HS 03/26/22 03/26/22 History sulfamethoxazole 800 1 tab PO AMHS 03/26/22 03/26/22 History mg-trimethoprim 160 mg tablet Patient History Medical History (Updated 03/26/22 @ 17:16 by Fahad Fournier M.D.) Atrial fibrillation on eliquis follows with Kip Alyson 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 (01/27/15) "Abnormal left breast mammogram Status post ultrasound-guided core needle biopsy 01/25/2015 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, progesterone receptor negative, HER-2/yury negative Status post lumpectomy and sentinel lymph node biopsy 03/03/2015 Pathologic stage [id number] Status post reexcision 03/23/2015 due to positive margin no residual tumor Status post completion of radiation therapy 06/10/2015 received 6120 cGy " On 07/09/15 10:05 Siria Dunham wrote "Abnormal left breast mammogram Status post ultrasound-guided core needle biopsy 01/25/2015 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, progesterone receptor negative, HER-2/yury negative Status post lumpectomy and sentinel lymph node biopsy 03/03/2015 Pathologic stage [id number] Status post reexcision 03/23/2015 due to positive margin no residual tumor " On 07/09/15 10:05 Siria Dunham wrote "Abnormal left breast mammogram Status post ultrasound-guided core needle biopsy 01/25/2015 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, progesterone receptor negative, HER-2/yury negative Status post lumpectomy and sentinel lymph node biopsy 03/03/2015 Pathologic stage [id number] Status post reexcision 03/23/2015 due to positive margin no residual tumor " On 04/07/15 12:14 Siria Dunham wrote "Abnormal left breast mammogram Status post ultrasound-guided core needle biopsy 01/25/2015 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, progesterone receptor negative, HER-2/yury negative Status post lumpectomy and sentinel lymph node biopsy 03/03/2015 Pathologic stage [id number] Status post reexcision 03/23/2015 due to positive margin no residual tumor" On 04/07/15 12:12 Siria Pittman Dunham wrote "Abnormal left breast mammogram Status post ultrasound-guided core needle biopsy 01/25/2015 Invasive ductal carcinoma Jana receptor negative, progesterone receptor negative, HER-2/yury negative Status post lumpectomy and sentinel lymph node biopsy 03/03/2015 Pathologic stage [id number] Status post reexcision 03/23/2015 due to positive margin no residual tumor" HTN (hypertension) Morbid obesity with BMI of 40.0-44.9, adult On anticoagulant therapy eliquis daily Surgical History History of breast surgery 03/2015 reexcision of lump of left breast History of colonoscopy History of lumpectomy of left breast 02/2015 with sentinel lymph node biopsy History of needle biopsy 01/2018 left breast--malignant History of tooth extraction History of total hysterectomy with bilateral salpingo-oophorectomy (BSO) History of wisdom tooth extraction Family History Mother Family hx of colon cancer Other No family history of adverse response to anesthesia No pertinent family history Social History Smoking Status: Never smoker Second Hand Exposure: Yes ( smoked); Hx Alcohol Use: No Hx Substance Use: No Preferred Language: Belarusian Communication Ability: Effective Binding Dyer Required: No Beliefs That Will Affect Care: None Current Living Situation: Spouse Other Information That Helps Us Care for You: No Feels Safe at Home: Yes Safety Concerns: Feels Safe At This Time Assistive Devices: None Physical Exam Physical Exam: In general this is an obese white female in no acute distress. HEENT exam is negative. Neck is supple with full carotid upstrokes. There are no carotid bruits. No JVD. There is no thyromegaly. Cardiovascular exam reveals an irregularly irregular rhythm with distant heart sounds. No obvious murmurs. Lungs are clear without rales, rhonchi, or wheezes. Abdomen is soft and nontender without bruits. Extremities reveal intact radial artery and posterior tibial pulses bilaterally. There is 1+ pretibial edema. Results & Data ([facility]) Vital Signs (Past 12 Hours) Vital Signs Temp Pulse Pulse Resp BP Pulse Ox O2 Del Method 03/27/22 11:58 36.5 C 135 H 18 104/71 94 Room Air 03/27/22 08:00 139 H 03/27/22 08:00 Room Air 03/27/22 08:04 36.6 C 147 H 18 133/85 94 Room Air 03/27/22 06:30 64 102/69 03/27/22 05:00 76 112/79 03/27/22 03:00 36.4 C L 120 H 18 110/72 97 Nasal Cannula 03/27/22 03:01 116 H 03/27/22 01:00 88 20 189/117 H 93 Nasal Cannula 03/27/22 00:50 130 H O2 Flow Rate 03/27/22 11:58 03/27/22 08:00 03/27/22 08:00 03/27/22 08:04 03/27/22 06:30 03/27/22 05:00 03/27/22 03:00 2 03/27/22 03:01 03/27/22 01:00 3 03/27/22 00:50 Laboratory Results CBC notes hemoglobin of 13.2, hematocrit 30.2, white count 5.3, platelet count 158 1000. Electrolytes note a sodium of 132, potassium 4.0, chloride 91, bicarb 25, BUN 10, creatinine 0.49, glucose of 126. Magnesium level is normal at 2.0. High sensitivity troponin was 15.9. TSH is normal at 1.779. Diagnostic Findings EKG notes atrial fibrillation and a rapid ventricular response. There is poor R-wave progression across the anterior precordium. Chest x-ray notes cardiomegaly and evidence of pulmonary edema. Bilateral pleural effusions are noted. PG Care Time/CCT Total # of Minutes Spent Total Time Spent with Patient: Total time spent is greater than 50% in coordination of care (as documented) at patient's floor/unit and/or counseling patient: Coding Level of Care Code 44584 Initial Inpt Care Lvl 3 Diagnoses Atrial fibrillation with RVR I48.91 HTN (hypertension) I10
--- NOTE | 2022-03-27 13:52 | Hospitalist Progress Note ---
Date of Service March 27, 2022 Assessment & Plan (1) Atrial fibrillation with RVR: Plan: History of paroxysmal atrial fibrillation on beta-vilma 1 week history of weakness and shortness of breath on exertion Has A. fib with RVR Has been started with intravenous diltiazem and receiving IV beta-vilma as well Will get cardiology evaluation Echo of the heart to evaluate LV function:LV size with mildly reduced systolic function, EF 45 to 50% with mild global hypokinesis. Mild concentric LVH. Mildly dilated right ventricle with normal systolic function, severe left atrial dilatation, mild aortic stenosis, mild mitral regurgitation, small pericardial effusion without echocardiographic evidence of tamponade, atrial fibrillation with rapid ventricular response, compared to prior study of 10/15/2018 A. fib with RVR was replaced sinus rhythm and LV systolic function is now mildly reduced and there is a small pericardial effusion present Continue Sharonda Appreciate cardiology's input and recommendation Could not tolerate intravenous Cardizem drip due to low blood pressure and heart rate was not responding even after giving digoxin Amiodarone has been started last night the heart rate is still remains elevated We will continue current medications (2) Acute hyponatremia: Plan: Noted to have hyponatremia with a level of 121 No history of nausea vomiting ,diarrhea or any infection except carbuncle of the abdominal wall No use of diuretics Likely secondary to poor intake Sodium levels remains low at 123 Will try small dose of intravenous Lasix (3) Weakness: Plan: Likely due to combination of hyponatremia and also heart failure Seems to be getting better (4) Pulmonary edema: Plan: Likely has acute diastolic heart failure secondary A. fib with RVR Chest x-ray suggestive of congestion Very cautious to use any diuretics given hyponatremia Will await sodium level to go up before using diuretics Sodium level is minimally increased to 123 Will give a small dose of intravenous Lasix for diuresis and sodium improvement Recheck sodium level in the morning (5) HTN (hypertension): Plan: Blood pressure is stable Noted to be low blood pressure on starting IV diltiazem Cardizem drip has been discontinued Blood pressure remains at the lower side (6) Carbuncle and furuncle of trunk: Plan: Received Bactrim Will give Keflex orally and stop Bactrim DVT prophylax On Eliquis CODE STATUS Full Admission and Anticipated Discharge Date Admission Date: March 26, 2022 Subjective 03/27/2022 The patient was seen and examined in telemetry unit She has been feeling a little better but he still remains tachycardic with a heart rate of 135 Denies any palpitation and/or shortness of breath No abdominal pain nausea or vomiting Review of Systems Review of Systems: All systems reviewed and are unremarkable except as noted below Physical Exam Physical Exam: Lying in bed comfortably Constitutional: well developed, well nourished, + ill appearing and + obese Eyes: PERRL, conjunctivae normal, anicteric sclerae ENMT: external ear and nose normal, oropharynx normal Neck: trachea midline, no thyromegaly Respiratory: no respiratory distress Auscultation: + diminished lung sounds and + crackles (Minimal crackles at the bases) Cardiovascular: Rate/Rhythm: regular rate, regular rhythm and + tachycardic Heart Sounds: normal S1 and normal S2; no murmur Extremities: + edema (1-2+ edema bilateral) Gastrointestinal (Abdomen): Inspection/Auscultation: normal bowel sounds; abdomen not distended Percussion/Palpation: abdomen soft; abdomen nontender Musculoskeletal: No acute arthritis in any joint Neurologic: Alert, awake and oriented x3. No focal sensory or no motor deficit appreciated Results & Data Results & Data ([facility]) Vital Signs (Past 12 Hours) Vital Signs Temp Pulse Pulse Resp BP Pulse Ox O2 Del Method 03/27/22 11:58 36.5 C 135 H 18 104/71 94 Room Air 03/27/22 08:00 139 H 03/27/22 08:00 Room Air 03/27/22 08:04 36.6 C 147 H 18 133/85 94 Room Air 03/27/22 06:30 64 102/69 03/27/22 05:00 76 112/79 03/27/22 03:00 36.4 C L 120 H 18 110/72 97 Nasal Cannula 03/27/22 03:01 116 H O2 Flow Rate 03/27/22 11:58 03/27/22 08:00 03/27/22 08:00 03/27/22 08:04 03/27/22 06:30 03/27/22 05:00 03/27/22 03:00 2 03/27/22 03:01 Laboratory Results Short CBC 03/26/22 03/27/22 Range/Units 16:13 05:40 WBC 6.18 5.37 (4.8-10.8) K/ul Hgb 14.1 13.2 (12.0-16.0) g/dl Hct 41.5 38.3 (34.1-44.9) % Plt Count 217 158 (130-400) K/uL BMP 03/26/22 03/26/22 03/27/22 16:13 22:48 05:40 Sodium 121 L 119 L* 123 L Potassium 5.1 4.6 4.0 Chloride 90 L 90 L 91 L Carbon Dioxide 24 24 25 BUN 10 9 10 Creatinine 0.52 L 0.48 L 0.49 L Glucose 117 H 169 H 126 H Calcium 9.3 8.7 8.9 Liver Function 03/26/22 Range/Units 16:13 Total Bilirubin 1.5 H (0.2-1.0) mg/dl AST 24 (13-39) U/L ALT 12 (7-52) U/L Alkaline Phosphatase 73 (34-104) U/L Albumin 3.1 L (3.4-5.0) gm/dl Urine 03/27/22 Range/Units 04:30 Urine Color Yellow Urine Appearance Clear (Clear) Urine pH 6.0 (4.5-7.5) Ur Specific [place] 1.007 (1.000-1.030) Urine Protein Negative (Negative) Urine Glucose (UA) Negative (Negative) Medications Administered Current Inpatient Medications Apixaban (Apixaban 5 Mg Tablet) 5 mg PO BID LINDA Stop: 04/25/22 20:59 Last Admin: 03/27/22 08:25 Dose: 5 mg Cephalexin HCl (Cephalexin 500 Mg Cap) 500 mg PO TID LINDA Stop: 04/02/22 20:59 Last Admin: 03/27/22 08:25 Dose: 500 mg Amiodarone HCl/Dextrose (Nexterone / D5w) 360 mg in 200 mls @ 16.667 mls/hr IV .Q12H LINDA Stop: 04/26/22 08:44 Last Admin: 03/27/22 08:24 Dose: 0.5 mg/min, 16.7 mls/hr Losartan Potassium (Losartan Potassium 25 Mg Tab) 25 mg PO DAILY LINDA Stop: 04/26/22 08:59 Melatonin (Melatonin 3 Mg Tab) 3 mg PO HS LINDA Stop: 04/25/22 20:59 Last Admin: 03/26/22 20:48 Dose: 3 mg Metoprolol Succinate (Metoprolol Succ 50mg Ext Rel Tab) [facility] [place]: 04/26/22 08:59 Last Admin: 03/27/22 08:25 Dose: 50 mg Metoprolol Tartrate (Metoprolol Tartrate 1 Mg/Ml Vial) 5 mg IV Q6H PRN PRN Reason: Tachycardia Stop: 04/25/22 21:59 Last Admin: 03/26/22 19:02 Dose: 5 mg Multivitamins (Multivitamin Tab) 1 tab PO [facility] Stop: 04/26/22 08:59 Last Admin: 03/27/22 08:25 Dose: 1 tab (1) Pulmonary edema Chronicity: acute Qualified Code(s): J81.0 - Acute pulmonary edema
[2022-03-27] MEDS ORDERED: LORazepam 0.5 MG in SYRINGE 0 ML IV STA (14:54)
[2022-03-27] MEDS: METOPROLOL TARTRATE 1 MG/ML VIAL IV PRN (16:26)
[2022-03-27] MEDS: MELATONIN 3 MG TAB PO SCH (19:44)
[2022-03-28] MEDS: METOPROLOL TARTRATE 1 MG/ML VIAL IV PRN ×5 (00:05→22:13)
--- NOTE | 2022-03-28 05:10 | Electrocardiogram Report ---
Test Reason : Blood Pressure : / mmHG Vent. Rate : 138 BPM Atrial Rate : 170 BPM P-R Int : 000 ms QRS Dur : 094 ms QT Int : 284 ms P-R-T Axes : 000 001 195 degrees QTc Int : 430 ms Atrial fibrillation with rapid ventricular response Low voltage QRS Nonspecific T wave abnormality Abnormal ECG When compared with ECG of 26-MAR-2022 16:30, No significant change was found Confirmed by Nils Antoine ([id number]) on 03/28/2022 5:10:21 AM Referred By: REFERRED SELF Confirmed By:Nils Atnoine
[2022-03-28 06:45] LABS: Basophils # (auto) 0.03 K/uL (0-0.2); Basophils % (auto) 0.5 %; Eosinophils # (auto) 0.13 K/uL (0-0.50); Eosinophils % (auto) 2.4 %; Hematocrit (blood only) 38.2 % (34.1-44.9); Hemoglobin 13.5 g/dl (12.0-16.0); Immature Granulocytes # (auto) 0.03 K/uL (0.00-0.02); Immature Granulocytes % (auto) 0.5 %; Lymphocytes # (auto) 0.55 K/uL (1.2-3.4); Mean Corpuscular Hemoglobin 30.3 pg (25.0-34.0); Mean Corpuscular Hgb Conc 35.3 g/dL (32.0-36.0); Mean Corpuscular Volume 85.8 fL (80.0-100.0); Mean Platelet Volume 10.3 fL (9.4-12.3); Monocytes # (auto) 0.55 K/uL (0.24-0.82); Neutrophils # (auto) 4.21 K/uL (1.4-6.5); Neutrophils % (auto) 76.6 %; Platelet Count 174 K/uL (130-400); RDW Coefficient of Variation 15.7 % (11.5-14.5); RDW Standard Deviation 48.7 fL (36.4-46.3); Red Blood Count 4.45 M/uL (3.93-5.22)
[2022-03-28 07:26] LABS: BUN Creatinine Ratio 21.7 (10-20); Calcium 8.9 mg/dl (8.5-10.1); Est GFR (Non-African American) 96.6 ml/min; Magnesium 1.9 mg/dl (1.7-2.4); Potassium 4.4 mmol/L (3.5-5.1)
[2022-03-28] MEDS: AMIODARONE / D5W 360 MG/200 ML BAG IV SCH ×2 (08:00→19:30)
[2022-03-28] MEDS: MULTIVITAMIN TAB PO SCH (08:00)
[2022-03-28] MEDS: APIXABAN 5 MG TABLET PO SCH ×2 (08:01→21:03)
[2022-03-28] MEDS: cephALEXin 500 MG CAP PO SCH ×3 (08:01→21:04)
[2022-03-28] MEDS: METOPROLOL SUCC 50MG EXT REL TAB PO SCH ×2 (08:01→21:03)
--- NOTE | 2022-03-28 10:04 | Cardiology Progress Note ---
Date of Service March 28, 2022 Assessment & Plan (1) Atrial fibrillation with RVR: Plan: -agree with Eliquis and metoprolol succinate. -consider increasing metoprolol succinate to 50 mg b.i.d. -increase metoprolol tartrate to 5 mg IV q 2 hr p.r.n. -agree with intravenous amiodarone. -can switch to oral amiodarone once she converts to sinus rhythm. -echocardiogram with borderline LV function, likely tachycardic induced. -will repeat echocardiogram as an outpatient. (2) HTN (hypertension): Plan: -adequate control on current regimen. Admission and Anticipated Discharge Date Admission Date: March 26, 2022 Subjective The patient is resting comfortably in bed without complaints of chest pain, dyspnea, or palpitations. Physical Exam Physical Exam: In general this is an obese white female in no acute distress. HEENT exam is negative. Neck is supple with full carotid upstrokes. There are no carotid bruits. No JVD. There is no thyromegaly. Cardiovascular exam reveals an irregularly irregular rhythm with distant heart sounds. No obvious murmurs. Lungs are clear without rales, rhonchi, or wheezes. Abdomen is soft and nontender without bruits. Extremities reveal intact radial artery and posterior tibial pulses bilaterally. There is 1+ pretibial edema. Results & Data ([facility]) Vital Signs (Past 12 Hours) Vital Signs Temp Pulse Pulse Resp BP BP Pulse Ox 03/28/22 09:20 133 H 03/28/22 09:20 03/28/22 07:32 36.3 C L 117 H 17 120/87 92 03/28/22 06:00 152 H 111/76 03/28/22 03:03 36.5 C 122 H 21 118/82 92 03/28/22 00:05 141 H 116/86 O2 Del Method 03/28/22 09:20 03/28/22 09:20 Room Air 03/28/22 07:32 Room Air 03/28/22 06:00 03/28/22 03:03 Room Air 03/28/22 00:05 Diagnostic Findings pvc monitor notes atrial fibrillation with a ventricular response varying between 100-150 bpm. PG Care Time/CCT Total # of Minutes Spent Total Time Spent with Patient: Total time spent is greater than 50% in coordination of care (as documented) at patient's floor/unit and/or counseling patient: Coding Level of Care Code 78614 Subseq Hosp Care Lvl 3 Diagnoses Atrial fibrillation with RVR I48.91 HTN (hypertension) I10
[2022-03-28] MEDS: FUROSEMIDE INJ 20 MG/2 ML VIAL IV SCH ×2 (10:19→21:04)
[2022-03-28] MEDS ORDERED: OLANZapine ZYDIS 5 MG ORALLY DIS. TAB PO SCH (12:45)
[2022-03-28] MEDS: PARoxetine HCL 10 MG TAB PO SCH (13:13)
--- NOTE | 2022-03-28 13:55 | Nephrology Consultation ---
Date of Consultation March 28, 2022 Assessment & Plan (1) Acute hyponatremia: Hypanatremia - Target- 127 until 11.00 pm today -Hypervolumic hyponatremia. -Increase lasix to 20 mg ID -- 1.5 FR - I/ output. 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 (2) Paroxysmal atrial fibrillation: History of Present Illness Reason for Consultation: Hyponatremia Attending Physician: Jordyn Long MD History of Present Illness 76 years old obese female who has been referred to Nephrology for HYponatremia. PMH of PAF,htn,HLD,h/o breast cancer who presneted with non specific symptoms of" not feeling well" with episodes of SOB, and bilateral pedal edema. She was noted to have A. fib with RVR in the emergency room with pulmonary vascularcongestion in chest x-ray with a hyponatremia of 121.Previous sodium levels and renal functions have been in the normal.She has not been on diuretic in the past, fluid intake has been pretty normal. Alert Oriented with mild respiratory distress on exam. Allergies Allergy/AdvReac Type Severity Reaction Status Date / Time No Known Allergies Allergy Verified 03/26/22 17:46 Home Medications Medication Instructions Recorded Confirmed Type multivitamin (Multiple Vitamins 1 tab PO QAM 10/15/18 03/26/22 History tablet) apixaban 5 mg tablet 5 mg PO BID 01/29/19 03/26/22 History metoprolol succinate 50 mg 50 mg PO QAM 01/29/19 03/26/22 History tablet,extended release 24 hr losartan 25 mg tablet 25 mg PO DAILY 03/26/22 03/26/22 History melatonin 3 mg tablet 3 mg PO HS 03/26/22 03/26/22 History sulfamethoxazole 800 1 tab PO AMHS 03/26/22 03/26/22 History mg-trimethoprim 160 mg tablet Patient History Medical History (Updated 03/26/22 @ 17:16 by Fahad Fournier M.D.) Atrial fibrillation on eliquis follows with Dannie Shields 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 (01/27/15) "Abnormal left breast mammogram Status post ultrasound-guided core needle biopsy 01/25/2015 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, progesterone receptor negative, HER-2/yury negative Status post lumpectomy and sentinel lymph node biopsy 03/03/2015 Pathologic stage [id number] Status post reexcision 03/23/2015 due to positive margin no residual tumor Status post completion of radiation therapy 06/10/2015 received 6120 cGy " On 07/09/15 10:05 Siria Dunham wrote "Abnormal left breast mammogram Status post ultrasound-guided core needle biopsy 01/25/2015 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, progesterone receptor negative, HER-2/yury negative Status post lumpectomy and sentinel lymph node biopsy 03/03/2015 Pathologic stage [id number] Status post reexcision 03/23/2015 due to positive margin no residual tumor " On 07/09/15 10:05 Siria Dunham wrote "Abnormal left breast mammogram Status post ultrasound-guided core needle biopsy 01/25/2015 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, progesterone receptor negative, HER-2/yury negative Status post lumpectomy and sentinel lymph node biopsy 03/03/2015 Pathologic stage [id number] Status post reexcision 03/23/2015 due to positive margin no residual tumor " On 04/07/15 12:14 Siria Dunham wrote "Abnormal left breast mammogram Status post ultrasound-guided core needle biopsy 01/25/2015 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, progesterone receptor negative, HER-2/yury negative Status post lumpectomy and sentinel lymph node biopsy 03/03/2015 Pathologic stage [id number] Status post reexcision 03/23/2015 due to positive margin no residual tumor" On 04/07/15 12:12 Siria Dunham wrote "Abnormal left breast mammogram Status post ultrasound-guided core needle biopsy 01/25/2015 Invasive ductal carcinoma Jana receptor negative, progesterone receptor negative, HER-2/yury negative Status post lumpectomy and sentinel lymph node biopsy 03/03/2015 Pathologic stage [id number] Status post reexcision 03/23/2015 due to positive margin no residual tumor" HTN (hypertension) Morbid obesity with BMI of 40.0-44.9, adult On anticoagulant therapy eliquis daily Surgical History History of breast surgery 03/2015 reexcision of lump of left breast History of colonoscopy History of lumpectomy of left breast 02/2015 with sentinel lymph node biopsy History of needle biopsy 01/2018 left breast--malignant History of tooth extraction History of total hysterectomy with bilateral salpingo-oophorectomy (BSO) History of wisdom tooth extraction Family History Mother Family hx of colon cancer Other No family history of adverse response to anesthesia No pertinent family history Social History Smoking Status: Never smoker Second Hand Exposure: Yes ( smoked); Hx Alcohol Use: No Hx Substance Use: No Preferred Language: Algerian Communication Ability: Effective Salt Manager Required: No Beliefs That Will Affect Care: None Current Living Situation: Spouse Other Information That Helps Us Care for You: No Feels Safe at Home: Yes Safety Concerns: Feels Safe At This Time Assistive Devices: None Review of Systems Review of Systems: All systems reviewed & are unremarkable except as noted in HPI & below Physical Exam Physical Exam: GENERAL: Elderly white female who is in mild respiratory distress. HEENT: Mucous membrane is dry. NECK: Supple, difficult to asses JVD due to body habitus. CHEST:+Diminished lung sounds and + crackles (Minimal crackles at the bases CARDIOVASCULAR: S1 and S2, regular. ABDOMEN: Soft, nontender. EXTREMITIES:2+ bilateral pedal edema. NEUROLOGICALLY: Awake, alert, oriented x3, normal speech. Moving all 4 extremities Results & Data ([facility]) Vital Signs (Past 12 Hours) Vital Signs Temp Pulse Pulse Resp BP BP Pulse Ox 03/28/22 12:06 147 H 104/60 03/28/22 11:00 36.8 C 147 H 19 104/60 94 03/28/22 09:20 133 H 03/28/22 09:20 03/28/22 07:32 36.3 C L 117 H 17 120/87 92 03/28/22 06:00 152 H 111/76 03/28/22 03:03 36.5 C 122 H 21 118/82 92 O2 Del Method 03/28/22 12:06 03/28/22 11:00 Room Air 10/25/22 09:20 03/28/22 09:20 Room Air 03/28/22 07:32 Room Air 03/28/22 06:00 03/28/22 03:03 Room Air Laboratory Results 03/28/22 06:12 03/28/22 06:12
--- NOTE | 2022-03-28 15:28 | Hospitalist Progress Note ---
Date of Service March 28, 2022 Assessment & Plan (1) Atrial fibrillation with RVR: Plan: History of paroxysmal atrial fibrillation on beta-vilma 1 week history of weakness and shortness of breath on exertion Has A. fib with RVR Has been started with intravenous diltiazem and receiving IV beta-vilma as well Will get cardiology evaluation Echo of the heart to evaluate LV function:LV size with mildly reduced systolic function, EF 45 to 50% with mild global hypokinesis. Mild concentric LVH. Mildly dilated right ventricle with normal systolic function, severe left atrial dilatation, mild aortic stenosis, mild mitral regurgitation, small pericardial effusion without echocardiographic evidence of tamponade, atrial fibrillation with rapid ventricular response, compared to prior study of 10/15/2018 A. fib with RVR was replaced sinus rhythm and LV systolic function is now mildly reduced and there is a small pericardial effusion present Continue Fantaquis Appreciate cardiology's input and recommendation Could not tolerate intravenous Cardizem drip due to low blood pressure and heart rate was not responding even after giving digoxin Amiodarone has been started last night the heart rate is still remains elevated Patient remains asymptomatic but the heart rate remains elevated at 141-she is getting frustrated that the heart rate is not being controlled We will discussed with the community development manager for further option tomorrow (2) Acute hyponatremia: Plan: Noted to have hyponatremia with a level of 121 No history of nausea vomiting ,diarrhea or any infection except carbuncle of the abdominal wall No use of diuretics Likely secondary to poor intake Sodium levels remains low at 123 Will try small dose of intravenous Lasix Sodium level remains low at 122 Nephrology has been consulted and started with intravenous furosemide 20 mg 3 times a day Continue with fluid restriction (3) Weakness: Plan: Likely due to combination of hyponatremia and also heart failure Seems to be getting better (4) Pulmonary edema: Plan: Likely has acute diastolic heart failure secondary A. fib with RVR Chest x-ray suggestive of congestion Very cautious to use any diuretics given hyponatremia Will await sodium level to go up before using diuretics Sodium level is minimally increased to 123 Will give a small dose of intravenous Lasix for diuresis and sodium improvement Recheck sodium level in the morning (5) HTN (hypertension): Plan: Blood pressure is stable Noted to be low blood pressure on starting IV diltiazem Cardizem drip has been discontinued Blood pressure remains at the lower side (6) Carbuncle and furuncle of trunk: Plan: Received Bactrim Will give Keflex orally and stop Bactrim DVT prophylax On Eliquis CODE STATUS Full Admission and Anticipated Discharge Date Admission Date: March 26, 2022 Subjective 03/27/2022 The patient was seen and examined in telemetry unit She has been feeling a little better but he still remains tachycardic with a heart rate of 135 Denies any palpitation and/or shortness of breath No abdominal pain nausea or vomiting 03/28/2022 The patient was seen and examined in telemetry unit She remains very anxious that her heart rate is not getting any better She denies any palpitation or shortness of breath Her weakness has been getting better though Review of Systems Review of Systems: All systems reviewed and are unremarkable except as noted below Physical Exam Physical Exam: Lying in bed comfortably Constitutional: well developed, well nourished, + ill appearing and + obese Eyes: PERRL, conjunctivae normal, anicteric sclerae ENMT: external ear and nose normal, oropharynx normal Neck: trachea midline, no thyromegaly Respiratory: no respiratory distress Auscultation: + diminished lung sounds and + crackles (Minimal crackles at the bases) Cardiovascular: Rate/Rhythm: regular rate, regular rhythm, + tachycardic and + irregularly irregular Heart Sounds: normal S1 and normal S2; no murmur Extremities: + edema (1-2+ edema bilateral) Gastrointestinal (Abdomen): Inspection/Auscultation: normal bowel sounds; abdomen not distended Percussion/Palpation: abdomen soft; abdomen nontender Musculoskeletal: No acute arthritis in any joint Neurologic: normal touch/pain/proprioception and moves all extremities; no focal motor deficits Psychiatric: A+Ox3, euthymic affect Lymphatic: no cervical or axillary lymphadenopathy Results & Data Results & Data ([facility]) Vital Signs (Past 12 Hours) Vital Signs Temp Pulse Pulse Resp BP BP Pulse Ox 03/28/22 15:00 36.8 C 141 H 19 116/88 93 03/28/22 12:06 147 H 104/60 03/28/22 11:00 36.8 C 147 H 19 104/60 94 03/28/22 09:20 133 H 03/28/22 09:20 03/28/22 07:32 36.3 C L 117 H 17 120/87 92 03/28/22 06:00 152 H 111/76 O2 Del Method 03/28/22 15:00 Room Air 03/28/22 12:06 03/28/22 11:00 Room Air 03/28/22 09:20 03/28/22 09:20 Room Air 03/28/22 07:32 Room Air 03/28/22 06:00 Laboratory Results Short CBC 03/28/22 Range/Units 06:12 WBC 5.50 (4.8-10.8) K/ul Hgb 13.5 (12.0-16.0) g/dl Hct 38.2 (34.1-44.9) % Plt Count 174 (130-400) K/uL BMP 03/28/22 06:12 Sodium 122 L Potassium 4.4 Chloride 90 L Carbon Dioxide 25 BUN 10 Creatinine 0.46 L Glucose 121 H Calcium 8.9 Medications Administered Current Inpatient Medications Apixaban (Apixaban 5 Mg Tablet) 5 mg PO BID LINDA Stop: 04/25/22 20:59 Last Admin: 03/28/22 08:01 Dose: 5 mg Cephalexin HCl (Cephalexin 500 Mg Cap) 500 mg PO TID LINDA Stop: 04/02/22 20:59 Last Admin: 03/28/22 13:12 Dose: 500 mg Furosemide (Furosemide Inj 20 Mg/2 Ml Vial) 20 mg IV BID LINDA Stop: 04/27/22 09:29 Last Admin: 03/28/22 10:19 Dose: 20 mg Amiodarone HCl/Dextrose (Nexterone / D5w) 360 mg in 200 mls @ 16.667 mls/hr IV .Q12H LINDA Stop: 04/26/22 08:44 Last Admin: 03/28/22 08:00 Dose: 0.5 mg/min, 16.7 mls/hr Losartan Potassium (Losartan Potassium 25 Mg Tab) 25 mg PO DAILY LINDA Stop: 04/26/22 08:59 Melatonin (Melatonin 3 Mg Tab) 3 mg PO HS LINDA Stop: 04/25/22 20:59 Last Admin: 03/27/22 19:44 Dose: 3 mg Metoprolol Succinate (Metoprolol Succ 50mg Ext Rel Tab) 50 mg PO QAM LINDA Stop: 04/26/22 08:59 Last Admin: 03/28/22 08:01 Dose: 50 mg Metoprolol Tartrate (Metoprolol Tartrate 1 Mg/Ml Vial) 5 mg IV Q6H PRN PRN Reason: Tachycardia Stop: 04/25/22 21:59 Last Admin: 03/28/22 12:06 Dose: 5 mg Multivitamins (Multivitamin Tab) 1 tab PO QAM [facility] Stop: 04/26/22 08:59 Last Admin: 03/28/22 08:00 Dose: 1 tab Paroxetine HCl (Paroxetine Hcl 10 Mg Tab) 10 mg PO DAILY [facility] Stop: 04/27/22 12:44 Last Admin: 03/28/22 13:13 Dose: 10 mg (1) Pulmonary edema Chronicity: acute Qualified Code(s): J81.0 - Acute pulmonary edema
[2022-03-28] MEDS: MELATONIN 3 MG TAB PO SCH (21:04)
[2022-03-29] MEDS: METOPROLOL TARTRATE 1 MG/ML VIAL IV PRN (02:46)
[2022-03-29] MEDS: AMIODARONE / D5W 360 MG/200 ML BAG IV SCH ×2 (05:38→16:42)
[2022-03-29 06:14] LABS: Basophils # (auto) 0.04 K/uL (0-0.2); Basophils % (auto) 0.8 %; Hematocrit (blood only) 39.5 % (34.1-44.9); Hemoglobin 13.9 g/dl (12.0-16.0); Immature Granulocytes # (auto) 0.02 K/uL (0.00-0.02); Immature Granulocytes % (auto) 0.4 %; Lymphocytes # (auto) 0.51 K/uL (1.2-3.4); Lymphocytes % (auto) 9.9 %; Mean Corpuscular Hemoglobin 30.1 pg (25.0-34.0); Mean Corpuscular Hgb Conc 35.2 g/dL (32.0-36.0); Mean Corpuscular Volume 85.5 fL (80.0-100.0); Mean Platelet Volume 10.4 fL (9.4-12.3); Monocytes # (auto) 0.51 K/uL (0.24-0.82); Monocytes % (auto) 9.9 %; Neutrophils # (auto) 4.09 K/uL (1.4-6.5); Platelet Count 166 K/uL (130-400); RDW Coefficient of Variation 15.7 % (11.5-14.5); RDW Standard Deviation 48.8 fL (36.4-46.3); Red Blood Count 4.62 M/uL (3.93-5.22); White Blood Count 5.17 K/ul (4.8-10.8)
[2022-03-29 06:40] LABS: BUN Creatinine Ratio 28.3 (10-20); Calcium 8.7 mg/dl (8.5-10.1); Creatinine Clr Calc Pharmacy 129.9 ml/min; Est GFR (Non-African American) 96.6 ml/min; Magnesium 1.7 mg/dl (1.7-2.4); Potassium 3.8 mmol/L (3.5-5.1)
[2022-03-29] MEDS ORDERED: FUROSEMIDE INJ 20 MG/2 ML VIAL IV SCH ×2 (07:00→09:00)
[2022-03-29] MEDS ORDERED: ALBUMIN 25% 12.5 GM/50 ML VIAL IV ONE (07:15)
[2022-03-29] MEDS: MULTIVITAMIN TAB PO SCH (08:13)
[2022-03-29] MEDS: PARoxetine HCL 10 MG TAB PO SCH (08:13)
[2022-03-29] MEDS: METOPROLOL SUCC 50MG EXT REL TAB PO SCH ×2 (08:13→21:11)
[2022-03-29] MEDS: APIXABAN 5 MG TABLET PO SCH ×2 (08:13→21:12)
[2022-03-29] MEDS: cephALEXin 500 MG CAP PO SCH ×3 (08:13→21:11)
[2022-03-29] MEDS: POTASSIUM CHLORIDE CRTAB 20 MEQ TABCR PO SCH ×2 (08:16→21:12)
--- NOTE | 2022-03-29 09:37 | Nephrology Progress Note ---
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 -12 hr sodium - I/ output. (2) Paroxysmal atrial fibrillation: Admission and Anticipated Discharge Date Admission Date: March 26, 2022 Subjective Denies any palpitation and/or shortness of breath No abdominal pain nausea or vomiting Bilateral pedal edema same. Review of Systems Review of Systems: All systems reviewed & are unremarkable except as noted in HPI & below Physical Exam Physical Exam: GENERAL: Elderly white female who is in mild respiratory distress. HEENT: Mucous membrane is dry. NECK: Supple, difficult to asses JVD due to body habitus. CHEST:+Diminished lung sounds and + crackles (Minimal crackles at the bases CARDIOVASCULAR: S1 and S2, regular. ABDOMEN: Soft, nontender. EXTREMITIES:2+ bilateral pedal edema. NEUROLOGICALLY: Awake, alert, oriented x3, normal speech. Moving all 4 ext remities Results & Data ([facility]) Vital Signs (Past 12 Hours) Vital Signs Temp Pulse Pulse Resp BP Pulse Ox 03/29/22 03:16 36.8 C 114 H 18 103/83 90 03/29/22 02:46 142 H 03/28/22 23:08 128 H 03/28/22 23:06 36.5 C 75 18 103/72 91 03/28/22 22:13 141 H Laboratory Results 03/29/22 05:33 03/29/22 05:33
[2022-03-29] MEDS ORDERED: DIGOXIN 250 MCG in SYRINGE 9 ML IV ONE (10:00)
--- NOTE | 2022-03-29 10:01 | Hospitalist Progress Note ---
Date of Service March 29, 2022 Assessment & Plan (1) Atrial fibrillation with RVR: Plan: History of paroxysmal atrial fibrillation on beta-vilma 1 week history of weakness and shortness of breath on exertion Has A. fib with RVR Has been started with intravenous diltiazem and receiving IV beta-vilma as well Will get cardiology evaluation Echo of the heart to evaluate LV function:LV size with mildly reduced systolic function, EF 45 to 50% with mild global hypokinesis. Mild concentric LVH. Mildly dilated right ventricle with normal systolic function, severe left atrial dilatation, mild aortic stenosis, mild mitral regurgitation, small pericardial effusion without echocardiographic evidence of tamponade, atrial fibrillation with rapid ventricular response, compared to prior study of 10/15/2018 A. fib with RVR was replaced sinus rhythm and LV systolic function is now mildly reduced and there is a small pericardial effusion present Continue Eliquis Appreciate cardiology's input and recommendation Could not tolerate intravenous Cardizem drip due to low blood pressure and heart rate was not responding even after giving digoxin Amiodarone has been started last night the heart rate is still remains elevated Still remains tachycardic at around 110s without any palpitation but generally weak Discussed with the flower maker-advised 1 dose of digoxin IV 250 mcg and cardioversion tomorrow morning Patient is reassured and the daughter will be updated by the flower maker (2) Acute hyponatremia: Plan: Noted to have hyponatremia with a level of 121 No history of nausea vomiting ,diarrhea or any infection except carbuncle of the abdominal wall No use of diuretics Likely secondary to poor intake Sodium levels remains low at 123 Will try small dose of intravenous Lasix Sodium level remains low at 122 Nephrology has been consulted and started with intravenous furosemide 20 mg 3 times a day Continue with fluid restriction Sodium level remains at 122-we will continue with the Lasix 20 mg twice daily and add urea 30 mg twice daily (3) Weakness: Plan: Likely due to combination of hyponatremia and also heart failure Seems to be getting better (4) Pulmonary edema: Plan: Likely has acute diastolic heart failure secondary A. fib with RVR Chest x-ray suggestive of congestion Very cautious to use any diuretics given hyponatremia Will await sodium level to go up before using diuretics Sodium level is minimally increased to 123 Will give a small dose of intravenous Lasix for diuresis and sodium improvement Recheck sodium level in the morning Has been diuresing enough with cumulative fluid balance of still still positive of 1145mls (5) HTN (hypertension): Plan: Blood pressure is stable Noted to be low blood pressure on starting IV diltiazem Cardizem drip has been discontinued Blood pressure remains at the lower side (6) Carbuncle and furuncle of trunk: Plan: Received Bactrim Will give Keflex orally and stop Bactrim DVT prophylax On Eliquis CODE STATUS Full Admission and Anticipated Discharge Date Admission Date: March 26, 2022 Subjective 03/27/2022 The patient was seen and examined in telemetry unit She has been feeling a little better but he still remains tachycardic with a heart rate of 135 Denies any palpitation and/or shortness of breath No abdominal pain nausea or vomiting 03/28/2022 The patient was seen and examined in telemetry unit She remains very anxious that her heart rate is not getting any better She denies any palpitation or shortness of breath Her weakness has been getting better though 03/29/2022 Patient was seen and examined in telemetry unit She has been generally weak but denies any chest pain and/or palpitation Her heart rate remains elevated at 114 as of this morning Review of Systems Review of Systems: All systems reviewed and are unremarkable except as noted below Respiratory: Minimal shortness of breath with exertion Neurologic: Generalized weakness Physical Exam Physical Exam: Sitting on a chair without any acute distress Constitutional: well developed, well nourished, + ill appearing and + obese Eyes: PERRL, conjunctivae normal, anicteric sclerae ENMT: external ear and nose normal, oropharynx normal Neck: trachea midline, no thyromegaly Respiratory: no respiratory distress Auscultation: + diminished lung sounds and + crackles (Minimal crackles at the bases) Cardiovascular: Rate/Rhythm: regular rate, regular rhythm, + tachycardic and + irregularly irregular Heart Sounds: normal S1 and normal S2; no murmur Extremities: + edema (1-2+ edema bilateral) Gastrointestinal (Abdomen): Inspection/Auscultation: normal bowel sounds; abdomen not distended Percussion/Palpation: abdomen soft; abdomen nontender Musculoskeletal: No acute arthritis involving any joint Neurologic: normal touch/pain/proprioception and moves all extremities; no focal motor deficits Psychiatric: A+Ox3, euthymic affect Lymphatic: no cervical or axillary lymphadenopathy Results & Data Results & Data ([facility]) Vital Signs (Past 12 Hours) Vital Signs Temp Pulse Pulse Resp BP Pulse Ox 03/29/22 03:16 36.8 C 114 H 18 103/83 90 03/29/22 02:46 142 H 03/28/22 23:08 128 H 03/28/22 23:06 36.5 C 75 18 103/72 91 03/28/22 22:13 141 H Laboratory Results Short CBC 03/29/22 Range/Units 05:33 WBC 5.17 (4.8-10.8) K/ul Hgb 13.9 (12.0-16.0) g/dl Hct 39.5 (34.1-44.9) % Plt Count 166 (130-400) K/uL BMP 03/29/22 05:33 Sodium 122 L Potassium 3.8 Chloride 89 L Carbon Dioxide 26 BUN 13 Creatinine 0.46 L Glucose 133 H Calcium 8.7 Medications Administered Current Inpatient Medications Apixaban (Apixaban 5 Mg Tablet) 5 mg PO BID LINDA Stop: 04/25/22 20:59 Last Admin: 03/29/22 08:13 Dose: 5 mg Cephalexin HCl (Cephalexin 500 Mg Cap) 500 mg PO TID LINDA Stop: 04/02/22 20:59 Last Admin: 03/29/22 08:13 Dose: 500 mg Furosemide (Furosemide Inj 20 Mg/2 Ml Vial) 20 mg IV TID LINDA Stop: 04/28/22 08:59 Last Admin: 03/29/22 08:13 Dose: 20 mg Amiodarone HCl/Dextrose (Nexterone / D5w) 360 mg in 200 mls @ 16.667 mls/hr IV .Q12H LINDA Stop: 04/26/22 08:44 Last Admin: 03/29/22 05:38 Dose: 0.5 mg/min, 16.7 mls/hr Digoxin 250 mcg/ Syringe 10 mls @ 2 mls/min IV NOW ONE Stop: 03/29/22 10:04 Losartan Potassium (Losartan Potassium 25 Mg Tab) 25 mg PO DAILY LINDA Stop: 04/26/22 08:59 Melatonin (Melatonin 3 Mg Tab) 3 mg PO HS LINDA Stop: 04/25/22 20:59 Last Admin: 03/28/22 21:04 Dose: 3 mg Metoprolol Succinate (Metoprolol Succ 50mg Ext Rel Tab) 50 mg PO BID LINDA Stop: 04/27/22 20:59 Last Admin: 03/29/22 08:13 Dose: 50 mg Metoprolol Tartrate (Metoprolol Tartrate 1 Mg/Ml Vial) 5 mg IV Q2H PRN PRN Reason: Tachycardia Stop: 04/25/22 21:59 Last Admin: 03/29/22 02:46 Dose: 5 mg Multivitamins (Multivitamin Tab) 1 tab PO QAM LINDA Stop: 04/26/22 08:59 Last Admin: 03/29/22 08:13 Dose: 1 tab Paroxetine HCl (Paroxetine Hcl 10 Mg Tab) 10 mg PO DAILY LINDA Stop: 04/27/22 12:44 Last Admin: 03/29/22 08:13 Dose: 10 mg Potassium Chloride (Potassium Chloride Crtab 20 Meq Tabcr) 20 meq PO BID LINDA Stop: 04/28/22 08:59 Last Admin: 03/29/22 08:16 Dose: 20 meq (1) Pulmonary edema Chronicity: acute Qualified Code(s): J81.0 - Acute pulmonary edema
[2022-03-29] MEDS: UREA (UREA-NA) 15 GM PACK PO SCH ×3 (11:03→21:14)
--- NOTE | 2022-03-29 11:05 | Cardiology Progress Note ---
Date of Service March 29, 2022 Assessment & Plan (1) Atrial fibrillation with RVR: Plan: -agree with Eliquis and increased dose of metoprolol succinate. -continue metoprolol tartrate to 5 mg IV q 2 hr p.r.n. -would add digoxin 0.25 mg IV x1 now. Consider repeat dose this afternoon if necessary. -continue intravenous amiodarone. -electrical cardioversion cannot be done today as the patient ate breakfast (discussed with Anesthesia). -scheduled for electrical cardioversion at 7:[address] Antoine. -discussed her care with daughter, Yanely, by telephone this morning. -echocardiogram with borderline LV function, likely tachycardic induced. -will repeat echocardiogram as an outpatient. (2) HTN (hypertension): Plan: -adequate control on current regimen. Admission and Anticipated Discharge Date Admission Date: March 26, 2022 Subjective The patient is resting comfortably in bed without complaints of chest pain, dyspnea, or palpitations. We have had long discussion regarding the need to proceed with an electrical cardioversion. Physical Exam Physical Exam: In general this is an obese white female in no acute distress. HEENT exam is negative. Neck is supple with full carotid upstrokes. There are no carotid bruits. No JVD. There is no thyromegaly. Cardiovascular exam reveals an irregularly irregular rhythm with distant heart sounds. No obvious murmurs. Lungs are clear without rales, rhonchi, or wheezes. Abdomen is soft and nontender without bruits. Extremities reveal intact radial artery and posterior tibial pulses bilaterally. There is 1+ pretibial edema. Results & Data ([facility]) Vital Signs (Past 12 Hours) Vital Signs Temp Pulse Pulse Resp BP Pulse Ox 03/29/22 08:00 143 H 03/29/22 10:34 140 H 03/29/22 03:16 36.8 C 114 H 18 103/83 90 03/29/22 02:46 142 H 03/28/22 23:08 128 H 03/28/22 23:06 36.5 C 75 18 103/72 91 Diagnostic Findings playground monitor notes atrial fibrillation with a ventricular response varying 100-140 beats per minute. PG Care Time/CCT Total # of Minutes Spent Total Time Spent with Patient: Total time spent is greater than 50% in coordination of care (as documented) at patient's floor/unit and/or counseling patient: Coding Level of Care Code 38982 Subseq Hosp Care Lvl 3 Diagnoses Atrial fibrillation with RVR I48.91 HTN (hypertension) I10
--- NOTE | 2022-03-29 14:04 | Communication Note ---
Date of Service: March 29, 2022 Physician consulted by primary service and patient daughter (Yanely) for additional opinion regarding atrial fibrillation management. Patient was seen and examined, all chart records and laboratory studies as well as medications reviewed. Echo images reviewed Patient is a 76-year-old female with prior paroxysmal atrial fibrillation evaluated in the outpatient setting with 1 to 2 weeks history of generalized weakness, fatigue and shortness of breath. On evaluation patient was found to be in atrial fibrillation with elevated ventricular response rate. Laboratory studies since admission have demonstrated newly observed hyponatremia. Echocardiogram small pericardial effusion preserved LV function. Patient was treated initially with IV diltiazem at a lower rate with subsequent drop in blood pressure.. Heart rates have been difficult to control and did not respond to oral and IV metoprolol, digoxin. She was begun on IV amiodarone for further rate control with anticipated synchronized electrical cardioversion to trial return to sinus rhythm. Patient is appropriately anticoagulated Cardioversion scheduled for a.m. Per request and reviewed patient's care and treatment with daughter Yanely. Discussed management of atrial fibrillation and its short and long-term treatment. Patient is being managed appropriately although heart rates are d ifficult to slow but patient tolerating relatively well. Today hemodynamically stable without acute complaints sitting out of bed to chair. Discussed stepwise upward titration of medications as being done with plans for cardioversion. Amiodarone most likely due to the medication to hold date for fibrillation at bay if possible. Discussed further upward escalation of treatments including AV junction ablation and pacemaker insertion if rate control unsuccessful Patient and daughter appear satisfied Will be available for questions with patient to continue care with primary radio aerial installer well-known to her
[2022-03-29] MEDS: FUROSEMIDE INJ 20 MG/2 ML VIAL IV SCH (21:12)
[2022-03-29] MEDS: MELATONIN 3 MG TAB PO SCH (21:13)
[2022-03-30] MEDS: AMIODARONE / D5W 360 MG/200 ML BAG IV SCH (04:19)
--- NOTE | 2022-03-30 05:27 | Electrocardiogram Report ---
Test Reason : Blood Pressure : / mmHG Vent. Rate : 135 BPM Atrial Rate : 136 BPM P-R Int : 000 ms QRS Dur : 092 ms QT Int : 262 ms P-R-T Axes : 000 002 189 degrees QTc Int : 393 ms Atrial fibrillation with rapid ventricular response Low voltage QRS Nonspecific T wave abnormality Abnormal ECG When compared with ECG of 27-MAR-2022 01:38, No significant change was found Confirmed by Nils Antoine ([id number]) on 03/30/2022 5:27:11 AM Referred By: REFERRED SELF Confirmed By:Nils Antoine
[2022-03-30 06:31] LABS: BUN Creatinine Ratio 41.5 (10-20); Calcium 8.8 mg/dl (8.5-10.1); Est GFR (African American) 116.3 ml/min; Est GFR (Non-African American) 100.4 ml/min; Magnesium 1.6 mg/dl (1.7-2.4)
--- NOTE | 2022-03-30 07:14 | Anesthesiology Consultation ---
Date of Service March 30, 2022 Assessment & Plan Chart Review Chart Review: Acceptable Risk for Surgery Consults Requested none ASA ASA3 Proposed Anesthesia Anesthesia Type: MAC Risk / Benefits Reviewed With: PT / POA / Parent / Guardian, Accepts Plan and Informed Consent Obtained History Surgery Operation Date: 03/30/22 07:45 Proposed Procedures p Cardioversion Retail Client Solutions Analyst w/Anesthesia - Nils Antoine MD Height/Weight Height: 5 ft 5 in Weight: 112.5 kg Allergies Allergy/AdvReac Type Severity Reaction Status Date / Time No Known Allergies Allergy Verified 03/26/22 17:46 Medications Home Medications Medication Instructions Recorded Confirmed Last Taken multivitamin (Multiple Vitamins 1 tab PO QAM 10/15/18 03/26/22 07/05/19 tablet) apixaban 5 mg tablet 5 mg PO BID 01/29/19 03/26/22 03/26/22 06:00 metoprolol succinate 50 mg 50 mg PO QAM 01/29/19 03/26/22 03/26/22 06:00 tablet,extended release 24 hr losartan 25 mg tablet 25 mg PO DAILY 03/26/22 03/26/22 03/26/22 06:00 melatonin 3 mg tablet 3 mg PO HS 03/26/22 03/26/22 Unknown sulfamethoxazole 800 1 tab PO AMHS 03/26/22 03/26/22 03/26/22 06:00 mg-trimethoprim 160 mg tablet Active Medications Generic Name Dose Route Start Last Admin Trade Name Dawitq PRN Reason Stop Dose Admin Apixaban 5 mg 03/26/22 21:00 03/29/22 21:12 Apixaban 5 Mg Tablet PO 04/25/22 20:59 5 mg BID LINDA Administration Cephalexin HCl 500 mg 03/26/22 21:00 03/29/22 21:11 Cephalexin 500 Mg Cap PO 04/02/22 20:59 500 mg TID LINDA Administration Furosemide 20 mg 03/29/22 21:00 03/29/22 21:12 Furosemide Inj 20 Mg/2 Ml Vial IV 04/28/22 20:59 20 mg BID LINDA Administration Amiodarone HCl/Dextrose 360 mg in 200 mls @ 16.667 mls/hr 03/27/22 08:45 03/30/22 04:19 Nexterone / D5w IV 04/26/22 08:44 0.5 mg/min .Q12H LINDA 16.7 mls/hr Administration 0.5 MG/MIN Melatonin 3 mg 03/26/22 21:00 03/29/22 21:13 Melatonin 3 Mg Tab PO 04/25/22 20:59 3 mg HS LINDA Administration Metoprolol Succinate 50 mg 03/28/22 21:00 03/29/22 21:11 Metoprolol Succ 50mg Ext Rel Tab PO 04/27/22 20:59 50 mg BID LINDA Administration Metoprolol Tartrate 5 mg 03/28/22 15:31 03/29/22 02:46 Metoprolol Tartrate 1 Mg/Ml Vial IV 04/25/22 21:59 5 mg Q2H PRN Administration Tachycardia Multivitamins 1 tab 03/27/22 09:00 03/29/22 08:13 Multivitamin Tab PO 04/26/22 08:59 1 tab QAM LINDA Administration Paroxetine HCl 10 mg 03/28/22 12:45 03/29/22 08:13 Paroxetine Hcl 10 Mg Tab PO 04/27/22 12:44 10 mg DAILY LINDA Administration Potassium Chloride 20 meq 03/29/22 09:00 03/29/22 21:12 Potassium Chloride Crtab 20 Meq Tabcr PO 04/28/22 08:59 20 meq BID LINDA Administration Urea 30 gm 03/29/22 10:30 03/29/22 21:14 Urea (Urea-Na) 15 Gm Pack PO 04/28/22 10:29 Not Given BID LINDA NPO Date Last Intake of Fluids: 03/30/22 Time Last Intake of Fluids: 00:00 Date Last Intake of Solids: 03/30/22 Time Last Intake of Solids: 00:00 Past Medical History Medical History Atrial fibrillation on eliquis follows with Kip Alyson 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 (01/27/15) "Abnormal left breast mammogram Status post ultrasound-guided core needle biopsy 01/25/2015 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, progesterone receptor negative, HER-2/yury n egative Status post lumpectomy and sentinel lymph node biopsy 03/03/2015 Pathologic stage [id number] Status post reexcision 03/23/2015 due to positive margin no residual tumor Status post completion of radiation therapy 06/10/2015 received 6120 cGy " On 07/09/15 10:05 Siria Dunham wrote "Abnormal left breast mammogram Status post ultrasound-guided core needle biopsy 01/25/2015 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, progesterone receptor negative, HER-2/yury n egative Status post lumpectomy and sentinel lymph node biopsy 03/03/2015 Pathologic stage [id number] Status post reexcision 03/23/2015 due to positive margin no residual tumor " On 07/09/15 10:05 Siria Dunham wrote "Abnormal left breast mammogram Status post ultrasound-guided core needle biopsy 01/25/2015 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, progesterone receptor negative, HER-2/yury negative Status post lumpectomy and sentinel lymph node biopsy 03/03/2015 Pathologic stage [id number] Status post reexcision 03/23/2015 due to positive margin no residual tumor " On 04/07/15 12:14 Siria Dunham wrote "Abnormal left breast mammogram Status post ultrasound-guided core needle biopsy 01/25/2015 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, progesterone receptor negative, HER-2/yury negative Status post lumpectomy and sentinel lymph node biopsy 03/03/2015 Pathologic stage [id number] Status post reexcision 03/23/2015 due to positive margin no residual tumor" On 04/07/15 12:12 Siria Dunham wrote "Abnormal left breast mammogram Status post ultrasound-guided core needle biopsy 01/25/2015 Invasive ductal carcinoma Jana receptor negative, progesterone receptor negative, HER-2/yury negative Status post lumpectomy and sentinel lymph node biopsy 03/03/2015 Pathologic stage [id number] Status post reexcision 03/23/2015 due to positive margin no residual tumor" HTN (hypertension) Morbid obesity with BMI of 40.0-44.9, adult On anticoagulant therapy eliquis daily Exercise / Class Metabolic Activity III < 4 Walking/Shop/Light housework Past Family History Family History Mother Family hx of colon cancer Other No family history of adverse response to anesthesia No pertinent family history Past Surgical History Surgical History History of breast surgery 03/2015 reexcision of lump of left breast History of colonoscopy History of lumpectomy of left breast 02/2015 with sentinel lymph node biopsy History of needle biopsy 01/2018 left breast--malignant History of tooth extraction History of total hysterectomy with bilateral salpingo-oophorectomy (BSO) History of wisdom tooth extraction Past Anesthesia History No Hx of Anesthesia Complications and No Family Hx of Anesthesia Complications History of PONV No Hx of PONV and No Hx of Motion Sickness Social History Smoking Status: Never smoker Hx Alcohol Use: No Hx Substance Use: No substance use type: does not use Physical Exam Vital Signs Last Vital Signs Temp 98.1 F 03/30/22 03:00 Pulse 129 H 03/30/22 03:00 Resp 18 03/30/22 03:00 BP 114/83 03/30/22 03:00 Pulse Ox 92 03/30/22 03:00 O2 Del Method 03/30/22 03:00 O2 Flow Rate 2 03/27/22 15:38 ENMT Mouth: no dentition abnormality Thyromental Distance: > or= 3.5 Finger Breadths Mallampati Class: III Neck normal visual inspection Respiratory normal respiratory effort Auscultation: lungs clear to auscultation bilaterally Cardiovascular Rate/Rhythm: + abnormal rate and + abnormal rhythm Testing Laboratory Results 03/29/22 05:33 03/30/22 05:49 PT 13.0 Seconds (9.0-12.0) H 03/26/22 19:02 INR 1.2 (0.9-1.1) H 03/26/22 19:02 APTT 34.7 Seconds (21.0-31.0) H 03/26/22 19:02 Urine Color Yellow 03/27/22 04:30 Urine Appearance Clear (Clear) 03/27/22 04:30 Urine pH 6.0 (4.5-7.5) 03/27/22 04:30 Ur Specific [place] 1.007 (1.000-1.030) 03/27/22 04:30 Urine Protein Negative (Negative) 03/27/22 04:30 Urine Glucose (UA) Negative (Negative) 03/27/22 04:30 Urine Ketones Negative (Negative) 03/27/22 04:30 Urine Nitrite Negative (Negative) 03/27/22 04:30 Ur Leukocyte Esterase Negative (Negative) 03/27/22 04:30
--- NOTE | 2022-03-30 07:30 | Cardioversion ---
Date of Service March 30, 2022 PG Electrical Cardioversion Rp Electrical Cardioversion Report Procedure: Elective DC cardioversion Indication: Atrial fibrillation with rapid ventricular response despite rate control attempts Ordering provider: Dr. Wright Antiarrhythmic therapy: Amiodarone drip Anticoagulation therapy: Therapeutic Eliquis with at least 4 weeks without interruption Consent: Informed written consent obtained. Time-out: Performed. Sedation: Provided by Anesthesiology Procedural details: Once patient was sufficiently sedated, 200 joules were delivered in a synchronized fashion which successfully converted atrial fibrillation with rapid ventricular response to sinus rhythm with heart rates in the 60s. She tolerated the procedure well without known complications at the time of this note. Plan: 1. Continue anticoagulation without interruption for at least 4 weeks, however indefinite anticoagulation appears indicated. 2. Will convert intravenous amiodarone to oral. 3. Patient's daughter, Yanely, was contacted via telephone to update her about the procedure and plan. Coding Level of Care Code Cardioversion, elective Additional Codes Electrical Cardioversion Report ([id number])
--- NOTE | 2022-03-30 07:44 | Cardiology Progress Note ---
Date of Service March 30, 2022 Assessment & Plan (1) Persistent atrial fibrillation: (2) Atrial fibrillation with RVR: (3) Cardiomyopathy: (4) Aortic stenosis: (5) HTN (hypertension): Plan ASSESSMENT/PLAN: 1. Persistent atrial fibrillation with rapid ventricular response: Successfully converted to sinus rhythm with DC cardioversion while on amiodarone drip. Continue amiodarone drip for the next few hours and then convert to oral amiodarone 400 mg twice daily for 6 days for loading purposes and then would reduce to 200 mg once or twice daily, to be determined by Dr. Wright. Monitor TSH and transaminase levels while on amiodarone. Continue beta-vilma. Continue anticoagulation therapy without interruption for at least 4 weeks following cardioversion, although anticoagulation therapy is indicated indefinitely. 2. Cardiomyopathy: Mildly reduced LV systolic function. May be due to persistent tachycardia. Continue metoprolol succinate as tolerated. Continue ARB. Repeat echo as an outpatient to re-evaluate. She may be mildly hypervolemic, but is asymptomatic. Edema reportedly improving. Diuretics have been increased by Nephrology. Would try to achieve negative net fluid balance. 3. Aortic stenosis: Mild. Follow over time. 4. Hypertension: Blood pressure has been reasonably controlled. No changes made at this time. 5. Hyponatremia: As per Nephrology and primary hospitalist service. 6. Disposition: Can be discharged from a cardiology perspective later today, however she continues to receive care for other issues such as hyponatremia. Recommend follow-up with Dr. Wright in 1-2 weeks after discharge. Patient care communicated with Dr. Long of the primary hospitalist service. Patient's daughter, Yanely, had been updated this morning following cardioversion. Please call with any other questions or concerns. Dr. Wright to resume her care tomorrow. Admission and Anticipated Discharge Date Admission Date: March 26, 2022 Subjective She was evaluated this morning prior to cardioversion. She has remained asymptomatic while in AFib with RVR. She denies palpitations, shortness of breath, orthopnea, chest pain, syncope, or bleeding. She states that her lower extremity edema has improved. She was also seen following the procedure and felt well when awaken from sedation. Physical Exam Physical Exam: Gen.: No acute distress. Alert and oriented. HEENT: Anicteric sclera. Neck: No appreciable JVD. Cardiac: No ventricular heave. Irregularly irregular and tachycardic. Normal S1- S2. No murmurs, rubs, or gallops. Pulmonary: Decreased breath sounds but otherwise clear to auscultation bilaterally. Abdomen: Soft, nontender, nondistended, with normoactive bowel sounds. No bruits noted. Extremities: 2+ radial pulses bilaterally. 2+ posterior tibialis pulses bilaterally. 1+ pitting edema in the dependent areas of lower extremities. No cyanosis. Psychiatric: Affect appears appropriate. Results & Data ([facility]) Vital Signs (Past 12 Hours) Vital Signs Temp Pulse Pulse Resp BP Pulse Ox O2 Del Method 03/30/22 07:36 72 14 124/89 95 Room Air 03/30/22 07:30 70 16 137/70 98 Room Air 03/30/22 07:21 65 16 124/77 98 Room Air 03/30/22 07:00 135 H 16 115/78 98 Room Air 03/30/22 03:00 36.7 C 129 H 18 114/83 92 Room Air 03/29/22 23:31 135 H 03/29/22 22:59 36.6 C 72 18 122/91 92 Room Air 03/29/22 20:00 Room Air Intake & Output 03/28/22 03/29/22 03/30/22 03/31/22 06:59 06:59 06:59 06:59 Intake Total 1413.662 / 2834.111 2492.277 / 1081.277 898.811 / 898.811 Output Total 1150 / 1150 801 / 801 300 / 300 Balance 263.662 / 263.662 280.277 / 280.277 598.811 / 598.811 Weight 247 lb 9.266 oz 247 lb 5.738 oz 248 lb 0.321 oz 248 lb 0.321 oz Laboratory Results Laboratory Results - last 24 hr 03/30/22 05:49 Sodium 121 L Potassium 4.0 Chloride 87 L Carbon Dioxide 26 Anion Gap 8 BUN 17 Creatinine 0.41 L Est Cr Clr Drug Dosing 146.0 Est GFR ( Amer) 116.3 Est GFR (Non-Af Amer) 100.4 BUN/Creatinine Ratio 41.5 H Glucose 131 H Calcium 8.8 Magnesium 1.6 L Diagnostic Findings Echo report reviewed from 03/27/2022: Normal LV size with mildly reduced systolic function. EF 45-50%. Mild global hypokinesis. Mildly dilated RV with normal systolic function. Severe left atrial dilation. Mild . Mild MR. Small pericardial effusion. AFib with RVR. Medications Administered Current Inpatient Medications Apixaban (Apixaban 5 Mg Tablet) 5 mg PO BID LINDA Stop: 04/25/22 20:59 Last Admin: 03/29/22 21:12 Dose: 5 mg Cephalexin HCl (Cephalexin 500 Mg Cap) 500 mg PO TID LINDA Stop: 04/02/22 20:59 Last Admin: 03/29/22 21:11 Dose: 500 mg Furosemide (Furosemide Inj 20 Mg/2 Ml Vial) 20 mg IV BID LINDA Stop: 04/28/22 20:59 Last Admin: 03/29/22 21:12 Dose: 20 mg Amiodarone HCl/Dextrose (Nexterone / D5w) 360 mg in 200 mls @ 16.667 mls/hr IV .Q12H LINDA Stop: 04/26/22 08:44 Last Admin: 03/30/22 04:19 Dose: 0.5 mg/min, 16.7 mls/hr Losartan Potassium (Losartan Potassium 25 Mg Tab) 25 mg PO DAILY LINDA Stop: 04/26/22 08:59 Melatonin (Melatonin 3 Mg Tab) 3 mg PO HS LINDA Stop: 04/25/22 20:59 Last Admin: 03/29/22 21:13 Dose: 3 mg Metoprolol Succinate (Metoprolol Succ 50mg Ext Rel Tab) 50 mg PO BID LINDA Stop: 04/27/22 20:59 Last Admin: 03/29/22 21:11 Dose: 50 mg Metoprolol Tartrate (Metoprolol Tartrate 1 Mg/Ml Vial) 5 mg IV Q2H PRN PRN Reason: Tachycardia Stop: 04/25/22 21:59 Last Admin: 03/29/22 02:46 Dose: 5 mg Multivitamins (Multivitamin Tab) 1 tab PO QAM LINDA Stop: 04/26/22 08:59 Last Admin: 03/29/22 08:13 Dose: 1 tab Paroxetine HCl (Paroxetine Hcl 10 Mg Tab) 10 mg PO DAILY LINDA Stop: 04/27/22 12:44 Last Admin: 03/29/22 08:13 Dose: 10 mg Potassium Chloride (Potassium Chloride Crtab 20 Meq Tabcr) 20 meq PO BID [facility] Stop: 04/28/22 08:59 Last Admin: 03/29/22 21:12 Dose: 20 meq Urea (Urea (Urea-Na) 15 Gm Pack) 30 gm PO BID LINDA Stop: 04/28/22 10:29 Last Admin: 03/29/22 21:14 Dose: Not Given PG Care Time/CCT Total # of Minutes Spent Total Time Spent with Patient: Total time spent is greater than 50% in coordination of care (as documented) at patient's floor/unit and/or counseling patient: Coding Level of Care Code 53569 Subseq Hosp Care Lvl 3 Diagnoses Persistent atrial fibrillation I48.19 Atrial fibrillation with RVR I48.91 Cardiomyopathy I42.9 Aortic stenosis I35.0 HTN (hypertension) I10
[2022-03-30] MEDS ORDERED: AMIODARONE 200 MG TAB PO SCH (08:00)
[2022-03-30] MEDS ORDERED: PROPOFOL IV EMULSION 10 MG/ML 20 ML VIAL IV ONE (08:14)
[2022-03-30] MEDS ORDERED: LIDOCAINE 2% 20 MG/ML 5 ML SYR IV ONE (08:14)
--- NOTE | 2022-03-30 08:29 | Anesthesiology Progress Note ---
Date of Service March 30, 2022 Anesthesia Post Procedure Vital Signs Vital Signs: Temp Pulse Pulse Resp BP Pulse Ox O2 Del Method 03/30/22 07:57 97.9 F 70 18 117/63 95 Room Air 03/30/22 07:36 72 14 124/89 95 Room Air 03/30/22 07:30 70 16 137/70 98 Room Air 03/30/22 07:21 65 16 124/77 98 Room Air 03/30/22 07:00 135 H 16 115/78 98 Room Air 03/30/22 03:00 98.1 F 129 H 18 114/83 92 Room Air 03/29/22 23:31 135 H 03/29/22 22:59 97.9 F 72 18 122/91 92 Room Air 03/29/22 20:00 Room Air 03/29/22 19:22 98.2 F 142 H 18 118/68 94 Room Air 03/29/22 15:00 98.2 F 114 H 18 118/64 97 03/29/22 14:54 135 H 03/29/22 11:00 97.7 F 125 H 18 121/66 97 03/29/22 11:36 Room Air 03/29/22 10:34 140 H Transfer of Care Handoff Completed per policy Notes Mental Status: alert / awake / arousable and participated in evaluation Patient Amnestic to Procedure: Yes Nausea / Vomiting: adequately controlled Pain: adequately controlled Airway Patency, RR, SpO2: stable & adequate BP & HR: stable & adequate Hydration State: stable & adequate Anesthetic Complications: no major complications apparent and Pt Satisfied with anesthetic care
[2022-03-30] MEDS: cephALEXin 500 MG CAP PO SCH ×3 (08:35→20:28)
[2022-03-30] MEDS: APIXABAN 5 MG TABLET PO SCH ×2 (08:35→20:28)
[2022-03-30] MEDS: FUROSEMIDE INJ 20 MG/2 ML VIAL IV SCH ×3 (08:36→20:29)
[2022-03-30] MEDS: METOPROLOL SUCC 50MG EXT REL TAB PO SCH ×2 (08:37→20:28)
[2022-03-30] MEDS: MULTIVITAMIN TAB PO SCH (08:38)
[2022-03-30] MEDS: PARoxetine HCL 10 MG TAB PO SCH (08:38)
[2022-03-30] MEDS: POTASSIUM CHLORIDE CRTAB 20 MEQ TABCR PO SCH ×2 (08:39→20:28)
[2022-03-30] MEDS: UREA (UREA-NA) 15 GM PACK PO SCH ×2 (09:42→20:29)
[2022-03-30] MEDS: AMIODARONE 200 MG TAB PO SCH ×2 (09:43→17:23)
[2022-03-30] MEDS: SODIUM CHLORIDE 1 GM TABLET PO SCH ×2 (12:58→20:28)
--- NOTE | 2022-03-30 14:56 | Hospitalist Progress Note ---
Date of Service March 30, 2022 Assessment & Plan (1) Atrial fibrillation with RVR: Plan: History of paroxysmal atrial fibrillation on beta-vilma 1 week history of weakness and shortness of breath on exertion Has A. fib with RVR Has been started with intravenous diltiazem and receiving IV beta-vilma as well Will get cardiology evaluation Echo of the heart to evaluate LV function:LV size with mildly reduced systolic function, EF 45 to 50% with mild global hypokinesis. Mild concentric LVH. Mildly dilated right ventricle with normal systolic function, severe left atrial dilatation, mild aortic stenosis, mild mitral regurgitation, small pericardial effusion without echocardiographic evidence of tamponade, atrial fibrillation with rapid ventricular response, compared to prior study of 10/15/2018 A. fib with RVR was replaced sinus rhythm and LV systolic function is now mildly reduced and there is a small pericardial effusion present Continue Eliquis Appreciate cardiology's input and recommendation Could not tolerate intravenous Cardizem drip due to low blood pressure and heart rate was not responding even after giving digoxin Amiodarone has been started last night the heart rate is still remains elevated Still remains tachycardic at around 110s without any palpitation but generally weak Discussed with the entry level finance-advised 1 dose of digoxin IV 250 mcg and cardioversion tomorrow morning Patient is reassured and the daughter will be updated by the entry level finance Status post cardioversion and reversion to sinus rhythm She has been feeling a little better Await PT OT and patient may need placement (2) Acute hyponatremia: Plan: Noted to have hyponatremia with a level of 121 No history of nausea vomiting ,diarrhea or any infection except carbuncle of the abdominal wall No use of diuretics Likely secondary to poor intake Sodium levels remains low at 123 Will try small dose of intravenous Lasix Sodium level remains low at 122 Nephrology has been consulted and started with intravenous furosemide 20 mg 3 times a day Continue with fluid restriction Sodium level remains at 122-we will continue with the Lasix 20 mg twice daily and add urea 30 mg twice daily She could not tolerate urea Will increase furosemide to 3 times daily and add sodium tablet Repeat PRP tomorrow Likely discharge in a day or 2 on oral torsemide 40 mg twice daily and 1 g sodium twice daily Repeat PRP in 1 week at discharge (3) Weakness: Plan: Likely due to combination of hyponatremia and also heart failure Seems to be getting better PT and OT evaluation and possible placement (4) Pulmonary edema: Plan: Likely has acute diastolic heart failure secondary A. fib with RVR Chest x-ray suggestive of congestion Very cautious to use any diuretics given hyponatremia Will await sodium level to go up before using diuretics Sodium level is minimally increased to 123 Will give a small dose of intravenous Lasix for diuresis and sodium improvement Recheck sodium level in the morning Has been diuresing enough with cumulative fluid balance of still still positive of 1145mls (5) HTN (hypertension): Plan: Blood pressure is stable Noted to be low blood pressure on starting IV diltiazem Cardizem drip has been discontinued Blood pressure remains at the lower side (6) Carbuncle and furuncle of trunk: Plan: Received Bactrim Will give Keflex orally and stop Bactrim DVT prophylax On Eliquis CODE STATUS Full Admission and Anticipated Discharge Date Admission Date: March 26, 2022 Subjective 03/27/2022 The patient was seen and examined in telemetry unit She has been feeling a little better but he still remains tachycardic with a heart rate of 135 Denies any palpitation and/or shortness of breath No abdominal pain nausea or vomiting 03/28/2022 The patient was seen and examined in telemetry unit She remains very anxious that her heart rate is not getting any better She denies any palpitation or shortness of breath Her weakness has been getting better though 03/29/2022 Patient was seen and examined in telemetry unit She has been generally weak but denies any chest pain and/or palpitation Her heart rate remains elevated at 114 as of this morning 03/30/2022 The patient was seen and examined in telemetry unit She is status post cardioversion and reversion to sinus rhythm Has been feeling a little better Remains weak and lethargic and sodium still remains low Review of Systems Review of Systems: All systems reviewed and are unremarkable except as noted below Respiratory: Minimal shortness of breath with exertion Neurologic: Generalized weakness Physical Exam Physical Exam: Sitting on a chair without any acute distress Constitutional: well developed, well nourished, + ill appearing and + obese Eyes: PERRL, conjunctivae normal, anicteric sclerae ENMT: external ear and nose normal, oropharynx normal Neck: trachea midline, no thyromegaly Respiratory: no respiratory distress Auscultation: + diminished lung sounds and + crackles (Minimal crackles at the bases) Cardiovascular: Rate/Rhythm: regular rate and regular rhythm; not tachycardic Heart Sounds: normal S1 and normal S2; no murmur Extremities: + edema (Trace edema bilaterally) Gastrointestinal (Abdomen): Inspection/Auscultation: normal bowel sounds; abdomen not distended Percussion/Palpation: abdomen soft; abdomen nontender Musculoskeletal: No acute arthritis in any joint Neurologic: normal touch/pain/proprioception and moves all extremities; no focal motor deficits Psychiatric: A+Ox3, euthymic affect Lymphatic: no cervical or axillary lymphadenopathy Results & Data Results & Data ([facility]) Vital Signs (Past 12 Hours) Vital Signs Temp Pulse Pulse Resp BP Pulse Ox O2 Del Method 03/30/22 08:01 70 03/30/22 06:05 143 H 03/30/22 11:04 36.3 C L 64 20 123/81 97 Room Air 03/30/22 09:45 36.7 C 62 20 122/78 95 Room Air 03/30/22 08:27 67 18 124/67 95 Room Air 03/30/22 07:57 36.6 C 70 18 117/63 95 Room Air 03/30/22 07:36 72 14 124/89 95 Room Air 03/30/22 07:30 70 16 137/70 98 Room Air 03/30/22 07:21 65 16 124/77 98 Room Air 03/30/22 07:00 135 H 16 115/78 98 Room Air 03/30/22 03:00 36.7 C 129 H 18 114/83 92 Room Air Laboratory Results [facility] 03/30/22 05:49 Sodium 121 L Potassium 4.0 Chloride 87 L Carbon Dioxide 26 BUN 17 Creatinine 0.41 L Glucose 131 H Calcium 8.8 Medications Administered Current Inpatient Medications Acetaminophen (Acetaminophen 500 Mg Tab) 1,000 mg PO Q8H PRN PRN Reason: Pain Stop: 04/29/22 14:02 Amiodarone HCl (Amiodarone 200 Mg Tab) 400 mg PO BIDM [facility] Stop: 04/04/22 17:01 Last Admin: 03/30/22 09:43 Dose: 400 mg Amiodarone HCl (Amiodarone 200 Mg Tab) 200 mg PO BIDM [facility] Stop: 05/05/22 07:59 Apixaban (Apixaban 5 Mg Tablet) 5 mg PO BID [facility] Stop: 04/25/22 20:59 Last Admin: 03/30/22 08:35 Dose: 5 mg Cephalexin HCl (Cephalexin 500 Mg Cap) 500 mg PO TID LINDA Stop: 04/02/22 20:59 Last Admin: 03/30/22 12:57 Dose: 500 mg Furosemide (Furosemide Inj 20 Mg/2 Ml Vial) 20 mg IV TID LINDA Stop: 04/29/22 13:59 Last Admin: 03/30/22 12:58 Dose: 20 mg Losartan Potassium (Losartan Potassium 25 Mg Tab) 25 mg PO DAILY [facility]DA Stop: 04/26/22 08:59 Melatonin (Melatonin 3 Mg Tab) 3 mg PO HS [facility]DA Stop: 04/25/22 20:59 Last Admin: 03/29/22 21:13 Dose: 3 mg Metoprolol Succinate (Metoprolol Succ 50mg Ext Rel Tab) 50 mg PO BID [facility]DA Stop: 04/27/22 20:59 Last Admin: 03/30/22 08:37 Dose: 50 mg Metoprolol Tartrate (Metoprolol Tartrate 1 Mg/Ml Vial) 5 mg IV Q2H PRN PRN Reason: Tachycardia Stop: 04/25/22 21:59 Last Admin: 03/29/22 02:46 Dose: 5 mg Multivitamins (Multivitamin Tab) 1 tab PO QAM [facility]DA Stop: 04/26/22 08:59 Last Admin: 03/30/22 08:38 Dose: 1 tab Paroxetine HCl (Paroxetine Hcl 10 Mg Tab) 10 mg PO DAILY [facility]DA Stop: 04/27/22 12:44 Last Admin: 03/30/22 08:38 Dose: 10 mg Potassium Chloride (Potassium Chloride Crtab 20 Meq Tabcr) 20 meq PO BID [facility] Stop: 04/28/22 08:59 Last Admin: 03/30/22 08:39 Dose: 20 meq Sodium Chloride (Sodium Chloride 1 Gm Tablet) 1 gm PO BID [facility]DA Stop: 04/29/22 11:59 Last Admin: 03/30/22 12:58 Dose: 1 gm Urea (Urea (Urea-Na) 15 Gm Pack) 30 gm PO BID [facility]DA Stop: 04/28/22 10:29 Last Admin: 03/30/22 09:42 Dose: Not Given (1) Pulmonary edema Chronicity: acute Qualified Code(s): J81.0 - Acute pulmonary edema
--- NOTE | 2022-03-30 16:09 | Nephrology Progress Note ---
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 - Ok to start 1g BID it she doesn't like urea. - 12 hr sodium (2) Paroxysmal atrial fibrillation: Admission and Anticipated Discharge Date Admission Date: March 26, 2022 Subjective The patient was seen and examined in telemetry unit She is status post cardioversion sodium still remains low Review of Systems Review of Systems: All systems reviewed & are unremarkable except as noted in HPI & below Physical Exam Physical Exam: GENERAL: Elderly white female who is in mild respiratory distress. HEENT: Mucous membrane is dry. NECK: Supple, difficult to asses JVD due to body habitus. CHEST:+Diminished lung sounds and + crackles (Minimal crackles at the bases CARDIOVASCULAR: S1 and S2, regular. ABDOMEN: Soft, nontender. EXTREMITIES:2+ bilateral pedal edema. NEUROLOGICALLY: Awake, alert, oriented x3, normal speech. Moving all 4 extremities Results & Data ([facility]) Vital Signs (Past 12 Hours) Vital Signs Temp Pulse Pulse Resp BP Pulse Ox O2 Del Method 03/30/22 15:31 36.4 C L 76 18 111/71 96 Room Air 03/30/22 14:52 72 03/30/22 08:01 70 03/30/22 06:05 143 H 03/30/22 11:04 36.3 C L 64 20 123/81 97 Room Air 03/30/22 09:45 36.7 C 62 20 122/78 95 Room Air 03/30/22 08:27 67 18 124/67 95 Room Air 03/30/22 07:57 36.6 C 70 18 117/63 95 Room Air 03/30/22 07:36 72 14 124/89 95 Room Air 03/30/22 07:30 70 16 137/70 98 Room Air 03/30/22 07:21 65 16 124/77 98 Room Air 03/30/22 07:00 135 H 16 115/78 98 Room Air Laboratory Results 03/29/22 05:33 03/30/22 05:49
[2022-03-30] MEDS: ACETAMINOPHEN 500 MG TAB PO PRN (20:28)
[2022-03-30] MEDS: MELATONIN 3 MG TAB PO SCH (20:29)
[2022-03-31 08:22] LABS: BUN Creatinine Ratio 29.3 (10-20); Calcium 9.6 mg/dl (8.5-10.1); Creatinine Clr Calc Pharmacy 72.6 ml/min; Est GFR (African American) 80.6 ml/min; Est GFR (Non-African American) 69.5 ml/min; Potassium 4.8 mmol/L (3.5-5.1)
[2022-03-31] MEDS: PARoxetine HCL 10 MG TAB PO SCH (09:09)
[2022-03-31] MEDS: METOPROLOL SUCC 50MG EXT REL TAB PO SCH ×2 (09:10→20:15)
[2022-03-31] MEDS: SODIUM CHLORIDE 1 GM TABLET PO SCH ×2 (09:10→20:14)
[2022-03-31] MEDS: POTASSIUM CHLORIDE CRTAB 20 MEQ TABCR PO SCH ×2 (09:10→20:13)
[2022-03-31] MEDS: MULTIVITAMIN TAB PO SCH (09:10)
[2022-03-31] MEDS: AMIODARONE 200 MG TAB PO SCH ×2 (09:10→18:12)
[2022-03-31] MEDS: FUROSEMIDE INJ 20 MG/2 ML VIAL IV SCH ×2 (09:11→20:14)
[2022-03-31] MEDS: cephALEXin 500 MG CAP PO SCH ×3 (09:11→20:15)
[2022-03-31] MEDS: APIXABAN 5 MG TABLET PO SCH ×2 (09:11→20:16)
[2022-03-31] MEDS: UREA (UREA-NA) 15 GM PACK PO SCH ×2 (09:13→20:13)
--- NOTE | 2022-03-31 13:53 | Hospitalist Progress Note ---
Date of Service March 31, 2022 Assessment & Plan (1) Atrial fibrillation with RVR: Plan: History of paroxysmal atrial fibrillation on beta-vilma 1 week history of weakness and shortness of breath on exertion Has A. fib with RVR Has been started with intravenous diltiazem and receiving IV beta-vilma as well Will get cardiology evaluation Echo of the heart to evaluate LV function:LV size with mildly reduced systolic function, EF 45 to 50% with mild global hypokinesis. Mild concentric LVH. Mildly dilated right ventricle with normal systolic function, severe left atrial dilatation, mild aortic stenosis, mild mitral regurgitation, small pericardial effusion without echocardiographic evidence of tamponade, atrial fibrillation with rapid ventricular response, compared to prior study of 10/15/2018 A. fib with RVR was replaced sinus rhythm and LV systolic function is now mildly reduced and there is a small pericardial effusion present Continue Eliquis Appreciate cardiology's input and recommendation Could not tolerate intravenous Cardizem drip due to low blood pressure and heart rate was not responding even after giving digoxin Amiodarone has been started last night the heart rate is still remains elevated Still remains tachycardic at around 110s without any palpitation but generally weak Discussed with the location worker-advised 1 dose of digoxin IV 250 mcg and cardioversion tomorrow morning Patient is reassured and the daughter will be updated by the location worker Status post cardioversion and reversion to sinus rhythm She has been feeling a little better Await PT OT and patient may need placement PT and OT recommended home but the patient and the daughter are not yet ready to be discharged Will continue with physical therapy in the hospital and likely discharge Sunday and/or Sunday (2) Acute hyponatremia: Plan: Noted to have hyponatremia with a level of 121 No history of nausea vomiting ,diarrhea or any infection except carbuncle of the abdominal wall No use of diuretics Likely secondary to poor intake Sodium levels remains low at 123 Will try small dose of intravenous Lasix Sodium level remains low at 122 Nephrology has been consulted and started with intravenous furosemide 20 mg 3 times a day Continue with fluid restriction Sodium level remains at 122-we will continue with the Lasix 20 mg twice daily and add urea 30 mg twice daily She could not tolerate urea Will increase furosemide to 3 times daily and add sodium tablet Repeat PRP tomorrow Likely discharge in a day or 2 on oral torsemide 40 mg twice daily and 1 g sodium twice daily Repeat PRP in 1 week at discharge Sodium remains at 122-we will continue intravenous Lasix but 2 times a day because of the low blood pressure (3) Weakness: Plan: Likely due to combination of hyponatremia and also heart failure Seems to be getting better PT and OT evaluation and possible placement Her blood pressure was noted to be low at 95 systolic we will decrease the doses of Lasix (4) Pulmonary edema: Plan: Likely has acute diastolic heart failure secondary A. fib with RVR Chest x-ray suggestive of congestion Very cautious to use any diuretics given hyponatremia Will await sodium level to go up before using diuretics Sodium level is minimally increased to 123 Will give a small dose of intravenous Lasix for diuresis and sodium improvement Recheck sodium level in the morning Has been diuresing enough with cumulative fluid balance of still still positive of 1145mls Positive cumulative balance of 2219-we will restrict oral fluid intake (5) HTN (hypertension): Plan: Blood pressure is stable Noted to be low blood pressure on starting IV diltiazem Cardizem drip has been discontinued Blood pressure remains at the lower side (6) Carbuncle and furuncle of trunk: Plan: Received Bactrim Will give Keflex orally and stop Bactrim DVT prophylax On Eliquis CODE STATUS Full Admission and Anticipated Discharge Date Admission Date: March 26, 2022 Subjective 03/27/2022 The patient was seen and examined in telemetry unit She has been feeling a little better but he still remains tachycardic with a heart rate of 135 Denies any palpitation and/or shortness of breath No abdominal pain nausea or vomiting 03/28/2022 The patient was seen and examined in telemetry unit She remains very anxious that her heart rate is not getting any better She denies any palpitation or shortness of breath Her weakness has been getting better though 03/29/2022 Patient was seen and examined in telemetry unit She has been generally weak but denies any chest pain and/or palpitation Her heart rate remains elevated at 114 as of this morning 03/30/2022 The patient was seen and examined in telemetry unit She is status post cardioversion and reversion to sinus rhythm Has been feeling a little better Remains weak and lethargic and sodium still remains low 03/31/2022 The patient was seen and examined in telemetry unit She has been generally weak and lethargic Denies any shortness of breath and/or palpitation Wants to continue with physical therapy to get better Blood pressure is noted to be low at 95/69 without any symptoms on ambulation Review of Systems Review of Systems: All systems reviewed and are unremarkable except as noted below Respiratory: Minimal shortness of breath with exertion Neurologic: Generalized weakness Physical Exam Physical Exam: Sitting on a chair without any acute distress Constitutional: well developed, well nourished, + ill appearing and + obese Eyes: PERRL, conjunctivae normal, anicteric sclerae ENMT: external ear and nose normal, oropharynx normal Neck: trachea midline, no thyromegaly Respiratory: no respiratory distress Auscultation: + diminished lung sounds and + crackles (Minimal crackles at the bases) Cardiovascular: Rate/Rhythm: regular rate, regular rhythm and + irregularly irregular; not tachycardic Heart Sounds: normal S1 and normal S2; no murmur Extremities: + edema (Trace edema bilaterally) Gastrointestinal (Abdomen): Inspection/Auscultation: normal bowel sounds; abdomen not distended Percussion/Palpation: abdomen soft; abdomen nontender Musculoskeletal: No acute arthritis in any joint Neurologic: normal touch/pain/proprioception and moves all extremities; no focal motor deficits Psychiatric: A+Ox3, euthymic affect Lymphatic: no cervical or axillary lymphadenopathy Results & Data Results & Data ([facility]) Vital Signs (Past 12 Hours) Vital Signs Temp Pulse Pulse Resp BP Pulse Ox O2 Del Method 03/31/22 12:08 Room Air 03/31/22 11:48 95/69 L 03/31/22 11:00 36.4 C L 60 20 81/58 L 95 Room Air 03/31/22 07:00 62 03/31/22 07:00 36.7 C 62 18 107/73 95 Room Air 03/31/22 03:29 36.5 C 60 20 112/71 95 Room Air Laboratory Results [facility] 03/31/22 07:29 Sodium 122 L Potassium 4.8 Chloride 86 L Carbon Dioxide 27 BUN 24 H Creatinine 0.82 D Glucose 149 H Calcium 9.6 Liver Function 03/31/22 Range/Units 07:29 AST 86 H (13-39) U/L ALT 73 H (7-52) U/L Medications Administered Current Inpatient Medications Acetaminophen (Acetaminophen 500 Mg Tab) 1,000 mg PO Q8H PRN PRN Reason: Pain Stop: 04/29/22 14:02 Last Admin: 03/30/22 20:28 Dose: 1,000 mg Amiodarone HCl (Amiodarone 200 Mg Tab) 400 mg PO BIDM LINDA Stop: 04/04/22 17:01 Last Admin: 03/31/22 09:10 Dose: 400 mg Amiodarone HCl (Amiodarone 200 Mg Tab) 200 mg PO BIDM LINDA Stop: 05/05/22 07:59 Apixaban (Apixaban 5 Mg Tablet) 5 mg PO BID LINDA Stop: 04/25/22 20:59 Last Admin: 03/31/22 09:11 Dose: 5 mg Cephalexin HCl (Cephalexin 500 Mg Cap) 500 mg PO TID LINDA Stop: 04/02/22 20:59 Last Admin: 03/31/22 09:11 Dose: 500 mg Furosemide (Furosemide Inj 20 Mg/2 Ml Vial) 20 mg IV TID LINDA Stop: 04/29/22 13:59 Last Admin: 03/31/22 09:11 Dose: 20 mg Losartan Potassium (Losartan Potassium 25 Mg Tab) 25 mg PO DAILY LINDA Stop: 04/26/22 08:59 Melatonin (Melatonin 3 Mg Tab) 3 mg PO HS LINDA Stop: 04/25/22 20:59 Last Admin: 03/30/22 20:29 Dose: Not Given Metoprolol Succinate (Metoprolol Succ 50mg Ext Rel Tab) 50 mg PO BID LINDA Stop: 04/27/22 20:59 Last Admin: 03/31/22 09:10 Dose: 50 mg Metoprolol Tartrate (Metoprolol Tartrate 1 Mg/Ml Vial) 5 mg IV Q2H PRN PRN Reason: Tachycardia Stop: 04/25/22 21:59 Last Admin: 03/29/22 02:46 Dose: 5 mg Multivitamins (Multivitamin Tab) 1 tab PO QAM LINDA Stop: 04/26/22 08:59 Last Admin: 03/31/22 09:10 Dose: 1 tab Paroxetine HCl (Paroxetine Hcl 10 Mg Tab) 10 mg PO DAILY [facility] Stop: 04/27/22 12:44 Last Admin: 03/31/22 09:09 Dose: 10 mg Potassium Chloride (Potassium Chloride Crtab 20 Meq Tabcr) 20 meq PO BID [facility]DA Stop: 04/28/22 08:59 Last Admin: 03/31/22 09:10 Dose: 20 meq Sodium Chloride (Sodium Chloride 1 Gm Tablet) 1 gm PO BID [facility] Stop: 04/29/22 11:59 Last Admin: 03/31/22 09:10 Dose: 1 gm Urea (Urea (Urea-Na) 15 Gm Pack) 30 gm PO BID [facility] Stop: 04/28/22 10:29 Last Admin: 03/31/22 09:13 Dose: Not Given (1) Pulmonary edema Chronicity: acute Qualified Code(s): J81.0 - Acute pulmonary edema
--- NOTE | 2022-03-31 14:49 | Nephrology Progress Note ---
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 -Increase salT tablets to 2g BID - 12 hr sodium (2) Paroxysmal atrial fibrillation: Admission and Anticipated Discharge Date Admission Date: March 26, 2022 Subjective Comfortable Denies any shortness of breath Wants to continue with physical therapy to get better Review of Systems Review of Systems: All systems reviewed & are unremarkable except as noted in HPI & below Physical Exam Physical Exam: GENERAL: Elderly white female who is in mild respiratory distress. HEENT: Mucous membrane is dry. NECK: Supple, difficult to asses JVD due to body habitus. CHEST:+Diminished lung sounds and + crackles (Minimal crackles at the bases CARDIOVASCULAR: S1 and S2, regular. ABDOMEN: Soft, nontender. EXTREMITIES:1+ bilateral pedal edema. NEUROLOGICALLY: Awake, alert, oriented x3, normal speech. Moving all 4 extremities Results & Data ([facility]) Vital Signs (Past 12 Hours) Vital Signs Temp Pulse Pulse Resp BP Pulse Ox O2 Del Method 03/31/22 12:08 Room Air 03/31/22 11:48 95/69 L 03/31/22 11:00 36.4 C L 60 20 81/58 L 95 Room Air 03/31/22 07:00 62 03/31/22 07:00 36.7 C 62 18 107/73 95 Room Air 03/31/22 03:29 36.5 C 60 20 112/71 95 Room Air Laboratory Results 03/29/22 05:33 03/31/22 07:29
[2022-03-31] MEDS: MELATONIN 3 MG TAB PO SCH (20:13)
[2022-03-31] MEDS: ACETAMINOPHEN 500 MG TAB PO PRN (20:18)
--- NOTE | 2022-04-01 05:47 | Electrocardiogram Report ---
Test Reason : Blood Pressure : / mmHG Vent. Rate : 073 BPM Atrial Rate : 073 BPM P-R Int : 154 ms QRS Dur : 088 ms QT Int : 382 ms P-R-T Axes : 082 009 -08 degrees QTc Int : 420 ms Sinus rhythm with Premature atrial complexes Cannot rule out Anterior infarct , age undetermined Abnormal ECG When compared with ECG of 29-MAR-2022 06:07, Sinus rhythm has replaced Atrial fibrillation Vent. rate has decreased BY 62 BPM Nonspecific T wave abnormality, improved in Lateral leads Confirmed by Nils Antoine ([id number]) on 04/01/2022 5:46:59 AM Referred By: REFERRED SELF Confirmed By:Nils Antoine
[2022-04-01 07:19] LABS: BUN Creatinine Ratio 39.3 (10-20); Calcium 9.4 mg/dl (8.5-10.1); Creatinine Clr Calc Pharmacy 96.4 ml/min; Est GFR (African American) 102.1 ml/min; Est GFR (Non-African American) 88.1 ml/min; Potassium 4.7 mmol/L (3.5-5.1)
[2022-04-01] MEDS: MULTIVITAMIN TAB PO SCH (09:17)
[2022-04-01] MEDS: SODIUM CHLORIDE 1 GM TABLET PO SCH (09:17)
[2022-04-01] MEDS: UREA (UREA-NA) 15 GM PACK PO SCH ×2 (09:17→19:57)
[2022-04-01] MEDS: APIXABAN 5 MG TABLET PO SCH ×2 (09:18→20:39)
[2022-04-01] MEDS: PARoxetine HCL 10 MG TAB PO SCH (09:18)
[2022-04-01] MEDS: AMIODARONE 200 MG TAB PO SCH ×2 (09:18→16:44)
[2022-04-01] MEDS: cephALEXin 500 MG CAP PO SCH ×3 (09:18→20:39)
[2022-04-01] MEDS: METOPROLOL SUCC 50MG EXT REL TAB PO SCH ×2 (09:19→20:46)
[2022-04-01] MEDS: FUROSEMIDE INJ 20 MG/2 ML VIAL IV SCH (09:44)
[2022-04-01] MEDS: POTASSIUM CHLORIDE CRTAB 20 MEQ TABCR PO SCH ×2 (09:44→20:39)
--- NOTE | 2022-04-01 13:06 | Hospitalist Progress Note ---
Date of Service April 01, 2022 Assessment & Plan (1) Atrial fibrillation with RVR: Plan: History of paroxysmal atrial fibrillation on beta-vilma 1 week history of weakness and shortness of breath on exertion Has A. allen with RVR Has been started with intravenous diltiazem and receiving IV beta-vilma as well Will get cardiology evaluation Echo of the heart to evaluate LV function:LV size with mildly reduced systolic function, EF 45 to 50% with mild global hypokinesis. Mild concentric LVH. Mildly dilated right ventricle with normal systolic function, severe left atrial dilatation, mild aortic stenosis, mild mitral regurgitation, small pericardial effusion without echocardiographic evidence of tamponade, atrial fibrillation with rapid ventricular response, compared to prior study of 10/15/2018 Irene. allen with RVR was replaced sinus rhythm and LV systolic function is now mildly reduced and there is a small pericardial effusion present Continue Eliquis Appreciate cardiology's input and recommendation Could not tolerate intravenous Cardizem drip due to low blood pressure and heart rate was not responding even after giving digoxin Amiodarone has been started last night the heart rate is still remains elevated Still remains tachycardic at around 110s without any palpitation but generally weak Discussed with the drop forger helper-advised 1 dose of digoxin IV 250 mcg and cardioversion tomorrow morning Patient is reassured and the daughter will be updated by the drop forger helper Status post cardioversion and reversion to sinus rhythm She has been feeling a little better Await PT OT and patient may need placement PT and OT recommended home but the patient and the daughter are not yet ready to be discharged Will continue with physical therapy in the hospital and likely discharge Sunday and/or Sunday When back to A. allen with RVR after my examination this morning-patient remained asymptomatic but the blood pressure noted to be low at 95/65 EKG was done and drop forger helper informed by the nurse-awaiting further management (2) Acute hyponatremia: Plan: Noted to have hyponatremia with a level of 121 No history of nausea vomiting ,diarrhea or any infection except carbuncle of the abdominal wall No use of diuretics Likely secondary to poor intake Sodium levels remains low at 123 Will try small dose of intravenous Lasix Sodium level remains low at 122 Nephrology has been consulted and started with intravenous furosemide 20 mg 3 times a day Continue with fluid restriction Sodium level remains at 122-we will continue with the Lasix 20 mg twice daily and add urea 30 mg twice daily She could not tolerate urea Will increase furosemide to 3 times daily and add sodium tablet Repeat PRP tomorrow Likely discharge in a day or 2 on oral torsemide 40 mg twice daily and 1 g sodium twice daily Repeat PRP in 1 week at discharge Sodium remains at 122-we will continue intravenous Lasix but 2 times a day because of the low blood pressure Sodium level remains low at 123-continue current management (3) Weakness: Plan: Likely due to combination of hyponatremia and also heart failure Seems to be getting better PT and OT evaluation and possible placement Her blood pressure was noted to be low at 95 systolic we will decrease the doses of Lasix Will have PT and OT evaluation (4) Pulmonary edema: Plan: Likely has acute diastolic heart failure secondary A. fib with RVR Chest x-ray suggestive of congestion Very cautious to use any diuretics given hyponatremia Will await sodium level to go up before using diuretics Sodium level is minimally increased to 123 Will give a small dose of intravenous Lasix for diuresis and sodium improvement Recheck sodium level in the morning Has been diuresing enough with cumulative fluid balance of still still positive of 1145mls Positive cumulative balance of 2219-we will restrict oral fluid intake (5) HTN (hypertension): Plan: Blood pressure is stable Noted to be low blood pressure on starting IV diltiazem Cardizem drip has been discontinued Blood pressure remains at the lower side (6) Carbuncle and furuncle of trunk: Plan: Received Bactrim Will give Keflex orally and stop Bactrim DVT prophylax On Eliquis CODE STATUS Full Admission and Anticipated Discharge Date Admission Date: March 26, 2022 Subjective 03/27/2022 The patient was seen and examined in telemetry unit She has been feeling a little better but he still remains tachycardic with a heart rate of 135 Denies any palpitation and/or shortness of breath No abdominal pain nausea or vomiting 03/28/2022 The patient was seen and examined in telemetry unit She remains very anxious that her heart rate is not getting any better She denies any palpitation or shortness of breath Her weakness has been getting better though 03/29/2022 Patient was seen and examined in telemetry unit She has been generally weak but denies any chest pain and/or palpitation Her heart rate remains elevated at 114 as of this morning 03/30/2022 The patient was seen and examined in telemetry unit She is status post cardioversion and reversion to sinus rhythm Has been feeling a little better Remains weak and lethargic and sodium still remains low 03/31/2022 The patient was seen and examined in telemetry unit She has been generally weak and lethargic Denies any shortness of breath and/or palpitation Wants to continue with physical therapy to get better Blood pressure is noted to be low at 95/69 without any symptoms on ambulation 04/01/2022 The patient was seen and examined in telemetry unit She has been better but is still remains weak and tired Denies any significant symptoms but later on went back to atrial fibrillation with RVR Review of Systems Review of Systems: All systems reviewed and are unremarkable except as noted below Respiratory: Minimal shortness of breath with exertion Neurologic: Generalized weakness Physical Exam Physical Exam: Sitting on a chair without any acute distress Constitutional: well developed, well nourished, + ill appearing and + obese Eyes: PERRL, conjunctivae normal, anicteric sclerae ENMT: external ear and nose normal, oropharynx normal Neck: trachea midline, no thyromegaly Respiratory: no respiratory distress Auscultation: + diminished lung sounds and + crackles (Minimal crackles at the bases) Cardiovascular: Rate/Rhythm: regular rate, regular rhythm and + irregularly irregular; not tachycardic Heart Sounds: normal S1 and normal S2; no murmur Extremities: + edema (Trace edema bilaterally) Gastrointestinal (Abdomen): Inspection/Auscultation: normal bowel sounds; abdomen not distended Percussion/Palpation: abdomen soft; abdomen nontender Neurologic: normal touch/pain/proprioception and moves all extremities; no focal motor deficits Psychiatric: A+Ox3, euthymic affect Lymphatic: no cervical or axillary lymphadenopathy Results & Data Results & Data ([facility]) Vital Signs (Past 12 Hours) Vital Signs Temp Pulse Resp BP Pulse Ox O2 Del Method 04/01/22 11:53 138 H 04/01/22 11:38 36.5 C 68 16 95/65 L 95 Room Air 04/01/22 08:15 36.7 C 65 16 102/71 97 Room Air 04/01/22 02:42 36.7 C 61 18 92/60 L 95 Room Air Laboratory Results [facility] 04/01/22 05:41 Sodium 123 L Potassium 4.7 Chloride 88 L Carbon Dioxide 28 BUN 24 H Creatinine 0.61 Glucose 114 H Calcium 9.4 Medications Administered Current Inpatient Medications Acetaminophen (Acetaminophen 500 Mg Tab) 1,000 mg PO Q8H PRN PRN Reason: Pain Stop: 04/29/22 14:02 Last Admin: 03/31/22 20:18 Dose: 1,000 mg Amiodarone HCl (Amiodarone 200 Mg Tab) 400 mg PO BIDM LINDA Stop: 04/04/22 17:01 Last Admin: 04/01/22 09:18 Dose: 400 mg Amiodarone HCl (Amiodarone 200 Mg Tab) 200 mg PO BIDM LINDA Stop: 05/05/22 07:59 Apixaban (Apixaban 5 Mg Tablet) 5 mg PO BID [facility] Stop: 04/25/22 20:59 Last Admin: 04/01/22 09:18 Dose: 5 mg Cephalexin HCl (Cephalexin 500 Mg Cap) 500 mg PO TID [facility]DA Stop: 04/02/22 20:59 Last Admin: 04/01/22 09:18 Dose: 500 mg Furosemide (Furosemide Inj 20 Mg/2 Ml Vial) 20 mg IV BID [facility]DA Stop: 04/30/22 20:59 Last Admin: 04/01/22 09:44 Dose: 20 mg Losartan Potassium (Losartan Potassium 25 Mg Tab) 25 mg PO DAILY [facility] Stop: 04/26/22 08:59 Melatonin (Melatonin 3 Mg Tab) 3 mg PO HS LINDA Stop: 04/25/22 20:59 Last Admin: 03/31/22 20:13 Dose: Not Given Metoprolol Succinate (Metoprolol Succ 50mg Ext Rel Tab) 50 mg PO BID LINDA Stop: 04/27/22 20:59 Last Admin: 04/01/22 09:19 Dose: 50 mg Metoprolol Tartrate (Metoprolol Tartrate 1 Mg/Ml Vial) 5 mg IV Q2H PRN PRN Reason: Tachycardia Stop: 04/25/22 21:59 Last Admin: 03/29/22 02:46 Dose: 5 mg Multivitamins (Multivitamin Tab) 1 tab PO QAM LINDA Stop: 04/26/22 08:59 Last Admin: 04/01/22 09:17 Dose: 1 tab Paroxetine HCl (Paroxetine Hcl 10 Mg Tab) 10 mg PO DAILY [facility] Stop: 04/27/22 12:44 Last Admin: 04/01/22 09:18 Dose: 10 mg Potassium Chloride (Potassium Chloride Crtab 20 Meq Tabcr) 20 meq PO BID [facility] Stop: 04/28/22 08:59 Last Admin: 04/01/22 09:44 Dose: 20 meq Sodium Chloride (Sodium Chloride 1 Gm Tablet) 2 gm PO BID [facility] Stop: 04/30/22 20:59 Last Admin: 04/01/22 09:17 Dose: 2 gm Urea (Urea (Urea-Na) 15 Gm Pack) 30 gm PO BID [facility] Stop: 04/28/22 10:29 Last Admin: 04/01/22 09:17 Dose: Not Given (1) Pulmonary edema Chronicity: acute Qualified Code(s): J81.0 - Acute pulmonary edema
--- NOTE | 2022-04-01 13:23 | Cardiology Progress Note ---
Date of Service April 01, 2022 Assessment & Plan (1) Persistent atrial fibrillation: (2) Atrial fibrillation with RVR: (3) Cardiomyopathy: (4) Aortic stenosis: (5) HTN (hypertension): (6) Heart failure with mid-range ejection fraction: (7) Elevated transaminase level: Plan ASSESSMENT/PLAN: 1. Persistent atrial fibrillation with rapid ventricular response: Converted to sinus with cardioversion on 03/30/2022 but reverted to atrial fibrillation on 04/01/22. Completely asymptomatic. No change in BP. Still receiving loading amiodarone dose. Continue amiodarone for now but transaminase levels are mildly elevated. Monitor transaminase levels. If no contraindication, can continue amiodarone to complete load and consider repeating cardioversion versus alternative treatment or pacemaker with AV william ablation. Would recommend electrophysiology evaluation on 04/03/[address] Lopes. Continue anticoagulation therapy. If blood pressure tolerates, can continue beta- vilma. 2. Cardiomyopathy: Mildly reduced LV systolic function. May be due to persistent tachycardia. Continue metoprolol succinate as tolerated. ARB on hold due to intermittent mild hypotension. She appears hypervolemic. 3. Aortic stenosis: Mild. Follow over time. 4. Hypertension: Normotensive to mildly hypotensive. Asymptomatic. ARB has been held. 5. Hyponatremia: Has been managed by nephrology. Remains hyponatremic. 6. Chronic heart failure with midrange EF: She appears hypervolemic. Question if there is hepatic congestion contributing to elevated transaminase levels. Lasix 40 mg IV x1. Monitor blood pressure carefully. If becomes hypotensive with diuresis, can support with IV fluids. If she remains asymptomatic and systolic blood pressure greater than 90, would continue with diuresis. Recommend low-sodium diet. She is receiving sodium tablets by nephrology. Strict I's and O's. Daily weights. 7. Elevated transaminase levels: Discussed with patient and her daughter, Zoila, who is present at the bedside. Could be due to amiodarone, versus hepatic congestion, versus other etiology. Repeat transaminase levels today and tomorrow. Attempt diuresis as above. If transaminase levels continue to climb, may need to discontinue amiodarone. Will defer other work-up to primary hospitalist service. 8. Disposition: Cardiology will continue to follow. Discussed with Dr. Long of the primary hospitalist service. Plan of care discussed with nursing staff, Hazel. Admission and Anticipated Discharge Date Admission Date: March 26, 2022 Subjective Notified by nursing staff that she developed atrial fibrillation this morning. When reviewing telemetry, atrial fibrillation with rapid ventricular response initiated at 11:01 AM. The patient has been completely unaware. She denies palpitations, chest pain, shortness of breath, syncope. Her daughter, Zoila, and son-in-law were present at the bedside. Zoila mentioned that her mother has orthopnea and therefore has been sleeping with her head elevated for many years. They are concerned about her weight and edema. According to the chart, her weight has actually decreased by approximately 8 pounds over the past 2 days. Physical Exam Physical Exam: Gen.: No acute distress. Alert and oriented. HEENT: Anicteric sclera. Neck: Mild JVD noted, while sitting upright. Cardiac: No ventricular heave. Irregularly irregular and tachycardic. Normal S1- S2. No murmurs, rubs, or gallops. Pulmonary: Decreased breath sounds at the bases, but otherwise clear to auscultation bilaterally. Abdomen: Soft, nontender, nondistended, with normoactive bowel sounds. No bruits noted. Extremities: 2+ radial pulses bilaterally. 2+ bilateral lower extremity edema. No cyanosis. Psychiatric: Affect appears appropriate. Results & Data ([facility]) Vital Signs (Past 12 Hours) Vital Signs Temp Pulse Resp BP Pulse Ox O2 Del Method 04/01/22 11:53 138 H 04/01/22 11:38 36.5 C 68 16 95/65 L 95 Room Air 04/01/22 08:15 36.7 C 65 16 102/71 97 Room Air 04/01/22 02:42 36.7 C 61 18 92/60 L 95 Room Air Intake & Output 03/30/22 03/31/22 04/01/22 04/02/22 06:59 06:59 06:59 06:59 Intake Total 898.811 / 898.811 645.767 / 645.767 740 / 740 Output Total 300 / 300 50 / 50 851 / 851 Balance 598.811 / 598.811 595.767 / 595.767 -111 / -111 Weight 248 lb 0.321 oz 245 lb 13.047 oz 240 lb 8.389 oz Laboratory Results Laboratory Results - last 24 hr 04/01/22 05:41 Sodium 123 L Potassium 4.7 Chloride 88 L Carbon Dioxide 28 Anion Gap 7 BUN 24 H Creatinine 0.61 Est Cr Clr Drug Dosing 96.4 Est GFR ( Amer) 102.1 Est GFR (Non-Af Amer) 88.1 BUN/Creatinine Ratio 39.3 H Glucose 114 H Calcium 9.4 Diagnostic Findings Telemetry personally reviewed: Had been sinus rhythm but developed atrial fibrillation at 11:01 AM, with rapid ventricular response. Medications Administered Current Inpatient Medications Acetaminophen (Acetaminophen 500 Mg Tab) 1,000 mg PO Q8H PRN PRN Reason: Pain Stop: 04/29/22 14:02 Last Admin: 03/31/22 20:18 Dose: 1,000 mg Amiodarone HCl (Amiodarone 200 Mg Tab) 400 mg PO BIDM LINDA Stop: 04/04/22 17:01 Last Admin: 04/01/22 09:18 Dose: 400 mg Amiodarone HCl (Amiodarone 200 Mg Tab) 200 mg PO BIDM LINDA Stop: 05/05/22 07:59 Apixaban (Apixaban 5 Mg Tablet) 5 mg PO BID LINDA Stop: 04/25/22 20:59 Last Admin: 04/01/22 09:18 Dose: 5 mg Cephalexin HCl (Cephalexin 500 Mg Cap) 500 mg PO TID LINDA Stop: 04/02/22 20:59 Last Admin: 04/01/22 09:18 Dose: 500 mg Furosemide (Furosemide Inj 20 Mg/2 Ml Vial) 20 mg IV BID LINDA Stop: 04/30/22 20:59 Last Admin: 04/01/22 09:44 Dose: 20 mg Losartan Potassium (Losartan Potassium 25 Mg Tab) 25 mg PO DAILY LINDA Stop: 04/26/22 08:59 Melatonin (Melatonin 3 Mg Tab) 3 mg PO HS LINDA Stop: 04/25/22 20:59 Last Admin: 03/31/22 20:13 Dose: Not Given Metoprolol Succinate (Metoprolol Succ 50mg Ext Rel Tab) 50 mg PO BID LINDA Stop: 04/27/22 20:59 Last Admin: 04/01/22 09:19 Dose: 50 mg Metoprolol Tartrate (Metoprolol Tartrate 1 Mg/Ml Vial) 5 mg IV Q2H PRN PRN Reason: Tachycardia Stop: 04/25/22 21:59 Last Admin: 03/29/22 02:46 Dose: 5 mg Multivitamins (Multivitamin Tab) 1 tab PO QAM LINDA Stop: 04/26/22 08:59 Last Admin: 04/01/22 09:17 Dose: 1 tab Paroxetine HCl (Paroxetine Hcl 10 Mg Tab) 10 mg PO DAILY LINDA Stop: 04/27/22 12:44 Last Admin: 04/01/22 09:18 Dose: 10 mg Potassium Chloride (Potassium Chloride Crtab 20 Meq Tabcr) 20 meq PO BID LINDA Stop: 04/28/22 08:59 Last Admin: 04/01/22 09:44 Dose: 20 meq Sodium Chloride (Sodium Chloride 1 Gm Tablet) 2 gm PO BID LINDA Stop: 04/30/22 20:59 Last Admin: 04/01/22 09:17 Dose: 2 gm Urea (Urea (Urea-Na) 15 Gm Pack) 30 gm PO BID LINDA Stop: 04/28/22 10:29 Last Admin: 04/01/22 09:17 Dose: Not Given PG Care Time/CCT Total # of Minutes Spent Total Time Spent with Patient: Total time spent is greater than 50% in coordination of care (as documented) at patient's floor/unit and/or counseling patient: Coding Level of Care Code 49648 Subseq Hosp Care Lvl 3 Diagnoses Persistent atrial fibrillation I48.19 Atrial fibrillation with RVR I48.91 Cardiomyopathy I42.9 Aortic stenosis I35.0 HTN (hypertension) I10 Heart failure with mid-range ejection fraction I50.22 Elevated transaminase level R74.01
[2022-04-01] MEDS ORDERED: FUROSEMIDE 40 MG/4 ML VIAL IV ONE (13:39)
--- NOTE | 2022-04-01 14:49 | Nephrology Progress Note ---
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 - Lasix dosing has been erratic due to her hypotensive state conplicated by paraoxymal AF. - Only way forward is controllingher HR to achieve a decent BP and regular lasix. - Recommend lasix 30 mg TID, d/c salt tablets. - i also suspect that she is drinking more that allowed,Strictly FR to 1.2 lit - Daily standing weight prefebly on the same scale with strict I/o - 12 hr sodium (2) Paroxysmal atrial fibrillation: Admission and Anticipated Discharge Date Admission Date: March 26, 2022 Subjective Developed atrial fibrillation again his morning. Comfortable on exam with chest pain, palpitations NO change in pedal edema Review of Systems Review of Systems: All systems reviewed & are unremarkable except as noted in HPI & below Physical Exam Physical Exam: GENERAL: Elderly white female who is in mild respiratory distress. HEENT: Mucous membrane is dry. NECK: Supple, difficult to asses JVD due to body habitus. CHEST:+Diminished lung sounds and + crackles (Minimal crackles at the bases CARDIOVASCULAR: S1 and S2, regular. ABDOMEN: Soft, nontender. EXTREMITIES:1+ bilateral pedal edema. NEUROLOGICALLY: Awake, alert, oriented x3, normal speech. Moving all 4 extremities Results & Data ([facility]) Vital Signs (Past 12 Hours) Vital Signs Temp Pulse Resp BP Pulse Ox O2 Del Method 04/01/22 14:16 127 H 20 91/66 L 94 Room Air 04/01/22 11:53 138 H 04/01/22 11:38 36.5 C 68 16 95/65 L 95 Room Air 04/01/22 08:15 36.7 C 65 16 102/71 97 Room Air 04/01/22 02:42 36.7 C 61 18 92/60 L 95 Room Air Laboratory Results 03/29/22 05:33 04/01/22 05:41
[2022-04-01 16:05] LABS: Alanine Aminotransferase 52 U/L (7-52); Aspartate Aminotransferase 37 U/L (13-39)
[2022-04-01] MEDS: MELATONIN 3 MG TAB PO SCH (19:57)
[2022-04-01] MEDS ORDERED: SODIUM CHLORIDE 0.9% 500 ML IV SCH ×2 (20:45→23:45)
[2022-04-01] MEDS ORDERED: METOPROLOL SUCC 25MG EXT REL TAB PO SCH (21:00)
[2022-04-02 06:11] LABS: BUN Creatinine Ratio 36.1 (10-20); Calcium 9.4 mg/dl (8.5-10.1); Creatinine Clr Calc Pharmacy 96.4 ml/min; Est GFR (African American) 102.1 ml/min; Est GFR (Non-African American) 88.1 ml/min; Magnesium 1.8 mg/dl (1.7-2.4); Potassium 4.5 mmol/L (3.5-5.1)
--- NOTE | 2022-04-02 07:37 | Communication Note ---
Date of Service: April 02, 2022 Last night Patient HR were in 120-130 range. SBP ranged 80-99. Held lopressor. Received one fluid bolus 250cc. D/W cardiology and appreciate inputs. Patient was comfortably sitting on chair alert and oriented and has no chest pain, sob, nausea or dizziness.Notified am doc. Thanks
[2022-04-02] MEDS: AMIODARONE 200 MG TAB PO SCH ×2 (07:40→16:58)
[2022-04-02] MEDS: UREA (UREA-NA) 15 GM PACK PO SCH ×2 (08:46→20:22)
--- NOTE | 2022-04-02 10:11 | Cardiology Progress Note ---
Date of Service April 02, 2022 Assessment & Plan (1) Persistent atrial fibrillation: (2) Atrial fibrillation with RVR: (3) Cardiomyopathy: (4) Aortic stenosis: (5) HTN (hypertension): (6) Heart failure with mid-range ejection fraction: (7) Elevated transaminase level: Plan ASSESSMENT/PLAN: 1. Persistent atrial fibrillation with rapid ventricular response: Converted to sinus with cardioversion on 03/30/2022 but reverted to atrial fibrillation on 04/01/22. Completely asymptomatic. Was hypotensive prior to recurrent A. fib. Transaminase levels have normalized. Continue amiodarone for now to offer some rate control. Discussed potential treatment strategies such as repeating cardioversion versus AV william ablation with pacemaker, versus other antiarrhythmic therapy. Discussed with on-call anesthesiology but no availability for elective cardioversion today. Discussed with Dr. Lopes of electrophysiology and he agrees that AV william ablation with pacemaker may be a better option. Discussed with daughter Yanely, via telephone and then again disussed with Yanely with other family on speaker phone. Family in agreement to discuss with electrophysiology tomorrow. Can eat today but n.p.o. after midnight. Continue anticoagulation therapy. Beta-vilma discontinued for now due to hypotension. 2. Cardiomyopathy: Mildly reduced LV systolic function. May be due to persistent tachycardia. Metoprolol succinate held for now given persistent hypotension overnight with systolic blood pressure less than 90 at times. Would resume standard heart failure therapies when able. ARB on hold due to intermittent mild hypotension. She appears hypervolemic. 3. Aortic stenosis: Mild. Follow over time. 4. Hypertension: History of hypertension but has been mostly hypotensive the past 24 hours and pressure low normal at times. Plan as above. Hypotension became more persistent after more aggressive diuretic. 5. Hyponatremia: Has been managed by nephrology. Remains hyponatremic. 6. Chronic heart failure with midrange EF: She appears hypervolemic. If SBP remains > 90 mmHg, can resume Lasix 20 mg IV twice daily if fluid balance is not on track for approximately 1 L negative net fluid balance for the day. Currently, seems to be diuresing well and is quite negative already today. Strict I's and O's. Daily weights. 7. Elevated transaminase levels: Resolved. 8. Disposition: Cardiology will continue to follow. Discussed with Dr. Long of the primary hospitalist service. Dr. Lopes to provide cardiology care tomorrow. Telephone conversations were held with patient's family as noted above. Admission and Anticipated Discharge Date Admission Date: March 26, 2022 Subjective Patient seen this morning. She denies chest pain, shortness of breath while in a chair, palpitations, syncope, lightheadedness, near syncope, or bleeding. She was given an additional 40 mg of IV Lasix yesterday and diuresed quite well. Following this however, she became more hypotensive with systolic blood pressure at times in the 80s. She remained asymptomatic. She received a small fluid bolus by hospitalist overnight. Since then, oral metoprolol has been held. Her blood pressure has improved. When she was seen this morning, she was alone in her hospital room. Physical Exam Physical Exam: Gen.: No acute distress. Alert and oriented. HEENT: Anicteric sclera. Neck: No significant JVD noted sitting upright in a chair. Hepatojugular reflux noted. Cardiac: No ventricular heave. Irregularly irregular and tachycardic. Normal S1- S2. No murmurs, rubs, or gallops. Pulmonary: Decreased breath sounds at the bases, but otherwise clear to ausc ultation bilaterally. Abdomen: Soft, nontender, nondistended, with normoactive bowel sounds. No bruits noted. Extremities: 2+ radial pulses bilaterally. 2+ bilateral lower extremity edema. No cyanosis. Psychiatric: Affect appears appropriate. Results & Data ([facility]) Vital Signs (Past 12 Hours) Vital Signs Temp Pulse Pulse Resp BP Pulse Ox O2 Del Method 04/02/22 07:37 36.8 C 126 H 16 90/66 L 95 Room Air 04/02/22 06:59 145 H 04/02/22 06:00 100/67 04/02/22 02:39 36.7 C 127 H 14 88/72 L 94 Room Air 04/02/22 00:18 85/61 L 04/01/22 23:46 99/69 L 04/01/22 23:30 36.7 C 119 H 18 83/63 L 95 Room Air 04/01/22 23:00 140 H 04/01/22 22:05 99/68 L Intake & Output 03/31/22 04/01/22 04/02/22 04/03/22 06:59 06:59 06:59 06:59 Intake Total 645.767 / 645.767 740 / 740 640 / 640 Output Total 50 / 50 851 / 851 2500 / 2500 Balance 595.767 / 595.767 -111 / -111 -1860 / -1860 Weight 245 lb 13.047 oz 240 lb 8.389 oz Laboratory Results Laboratory Results - last 24 hr 04/01/22 04/02/22 04/02/22 15:17 05:15 06:21 Sodium 124 L Potassium 4.5 Chloride 89 L Carbon Dioxide 27 Anion Gap 8 BUN 22 Creatinine 0.61 Est Cr Clr Drug Dosing 96.4 Est GFR ( Amer) 102.1 Est GFR (Non-Af Amer) 88.1 BUN/Creatinine Ratio 36.1 H Glucose 124 H Calcium 9.4 Magnesium 1.8 AST 37 34 ALT 52 49 B-Natriuretic Peptide 730 H Diagnostic Findings Telemetry personally reviewed: [place] with RVR. Medications Administered Current Inpatient Medications Acetaminophen (Acetaminophen 500 Mg Tab) 1,000 mg PO Q8H PRN PRN Reason: Pain Stop: 04/29/22 14:02 Last Admin: 03/31/22 20:18 Dose: 1,000 mg Amiodarone HCl (Amiodarone 200 Mg Tab) 400 mg PO BIDM LINDA Stop: 04/04/22 17:01 Last Admin: 04/02/22 07:40 Dose: 400 mg Amiodarone HCl (Amiodarone 200 Mg Tab) 200 mg PO BIDM LINDA Stop: 05/05/22 07:59 Apixaban (Apixaban 5 Mg Tablet) 5 mg PO BID LINDA Stop: 04/25/22 20:59 Last Admin: 04/02/22 11:52 Dose: 5 mg Cephalexin HCl (Cephalexin 500 Mg Cap) 500 mg PO TID LINDA Stop: 04/02/22 20:59 Last Admin: 04/02/22 11:51 Dose: 500 mg Furosemide (Furosemide Inj 20 Mg/2 Ml Vial) 40 mg IV BID LINDA Stop: 05/01/22 20:59 Losartan Potassium (Losartan Potassium 25 Mg Tab) 25 mg PO DAILY LINDA Stop: 04/26/22 08:59 Melatonin (Melatonin 3 Mg Tab) 3 mg PO HS LINDA Stop: 04/25/22 20:59 Last Admin: 04/01/22 19:57 Dose: Not Given Metoprolol Succinate (Metoprolol Succ 25mg Ext Rel Tab) 25 mg PO BID [facility] Stop: 05/01/22 20:59 Last Admin: 04/01/22 21:06 Dose: Not Given Metoprolol Tartrate (Metoprolol Tartrate 1 Mg/Ml Vial) 5 mg IV Q2H PRN PRN Reason: Tachycardia Stop: 04/25/22 21:59 Last Admin: 03/29/22 02:46 Dose: 5 mg Multivitamins (Multivitamin Tab) 1 tab PO QAM LINDA Stop: 04/26/22 08:59 Last Admin: 04/02/22 11:52 Dose: 1 tab Paroxetine HCl (Paroxetine Hcl 10 Mg Tab) 10 mg PO DAILY [facility] Stop: 04/27/22 12:44 Last Admin: 04/02/22 11:53 Dose: 10 mg Potassium Chloride (Potassium Chloride Crtab 20 Meq Tabcr) 20 meq PO BID LINDA Stop: 04/28/22 08:59 Last Admin: 04/02/22 11:52 Dose: 20 meq Urea (Urea (Urea-Na) 15 Gm Pack) 30 gm PO BID LINDA Stop: 04/28/22 10:29 Last Admin: 04/02/22 08:46 Dose: Not Given PG Care Time/CCT Total # of Minutes Spent Total Time Spent with Patient: Total time spent is greater than 50% in coordination of care (as documented) at patient's floor/unit and/or counseling patient: Coding Level of Care Code 91568 Subseq Hosp Care Lvl 3 Diagnoses Persistent atrial fibrillation I48.19 Atrial fibrillation with RVR I48.91 Cardiomyopathy I42.9 Aortic stenosis I35.0 HTN (hypertension) I10 Heart failure with mid-range ejection fraction I50.22 Elevated transaminase level R74.01
[2022-04-02] MEDS: cephALEXin 500 MG CAP PO SCH ×2 (11:51→14:34)
[2022-04-02] MEDS: MULTIVITAMIN TAB PO SCH (11:52)
[2022-04-02] MEDS: POTASSIUM CHLORIDE CRTAB 20 MEQ TABCR PO SCH ×2 (11:52→20:27)
[2022-04-02] MEDS: APIXABAN 5 MG TABLET PO SCH (11:52)
[2022-04-02] MEDS: PARoxetine HCL 10 MG TAB PO SCH (11:53)
--- NOTE | 2022-04-02 13:43 | Hospitalist Progress Note ---
Date of Service April 02, 2022 Assessment & Plan (1) Atrial fibrillation with RVR: Plan: History of paroxysmal atrial fibrillation on beta-vilma 1 week history of weakness and shortness of breath on exertion Has A. allen with RVR Has been started with intravenous diltiazem and receiving IV beta-vilma as well Will get cardiology evaluation Echo of the heart to evaluate LV function:LV size with mildly reduced systolic function, EF 45 to 50% with mild global hypokinesis. Mild concentric LVH. Mildly dilated right ventricle with normal systolic function, severe left atrial dilatation, mild aortic stenosis, mild mitral regurgitation, small pericardial effusion without echocardiographic evidence of tamponade, atrial fibrillation with rapid ventricular response, compared to prior study of 10/15/2018 Irene. allen with RVR was replaced sinus rhythm and LV systolic function is now mildly reduced and there is a small pericardial effusion present Continue Eliquis Appreciate cardiology's input and recommendation Could not tolerate intravenous Cardizem drip due to low blood pressure and heart rate was not responding even after giving digoxin Amiodarone has been started last night the heart rate is still remains elevated Still remains tachycardic at around 110s without any palpitation but generally weak Discussed with the pyridine recovery operator-advised 1 dose of digoxin IV 250 mcg and cardioversion tomorrow morning Patient is reassured and the daughter will be updated by the pyridine recovery operator Status post cardioversion and reversion to sinus rhythm She has been feeling a little better Await PT OT and patient may need placement PT and OT recommended home but the patient and the daughter are not yet ready to be discharged Will continue with physical therapy in the hospital and likely discharge Sunday and/or Sunday When back to A. allen with RVR after my examination this morning-patient remained asymptomatic but the blood pressure noted to be low at 95/65 EKG was done and pyridine recovery operator informed by the nurse-awaiting further management Appreciate cardiology input and the patient is going to have ablation tomorrow with a pacemaker placement (2) Acute hyponatremia: Plan: Noted to have hyponatremia with a level of 121 No history of nausea vomiting ,diarrhea or any infection except carbuncle of the abdominal wall No use of diuretics Likely secondary to poor intake Sodium levels remains low at 123 Will try small dose of intravenous Lasix Sodium level remains low at 122 Nephrology has been consulted and started with intravenous furosemide 20 mg 3 times a day Continue with fluid restriction Sodium level remains at 122-we will continue with the Lasix 20 mg twice daily and add urea 30 mg twice daily She could not tolerate urea Will increase furosemide to 3 times daily and add sodium tablet Repeat PRP tomorrow Likely discharge in a day or 2 on oral torsemide 40 mg twice daily and 1 g sodium twice daily Repeat PRP in 1 week at discharge Sodium remains at 122-we will continue intravenous Lasix but 2 times a day because of the low blood pressure Sodium level remains low at 123-continue current management Sodium level has come up to 124 as of 04/02/2022 (3) Weakness: Plan: Likely due to combination of hyponatremia and also heart failure Seems to be getting better PT and OT evaluation and possible placement Her blood pressure was noted to be low at 95 systolic we will decrease the doses of Lasix Will have PT and OT evaluation (4) Pulmonary edema: Plan: Likely has acute diastolic heart failure secondary A. fib with RVR Chest x-ray suggestive of congestion Very cautious to use any diuretics given hyponatremia Will await sodium level to go up before using diuretics Sodium level is minimally increased to 123 Will give a small dose of intravenous Lasix for diuresis and sodium improvement Recheck sodium level in the morning Has been diuresing enough with cumulative fluid balance of still still positive of 1145mls Positive cumulative balance of 2219-we will restrict oral fluid intake Has cumulative balance of +369 as of 04/02/2022 (5) HTN (hypertension): Plan: Blood pressure is stable Noted to be low blood pressure on starting IV diltiazem Cardizem drip has been discontinued Blood pressure remains at the lower side (6) Carbuncle and furuncle of trunk: Plan: Received Bactrim Will give Keflex orally and stop Bactrim DVT prophylax On Eliquis CODE STATUS Full Admission and Anticipated Discharge Date Admission Date: March 26, 2022 Subjective 03/27/2022 The patient was seen and examined in telemetry unit She has been feeling a little better but he still remains tachycardic with a heart rate of 135 Denies any palpitation and/or shortness of breath No abdominal pain nausea or vomiting 03/28/2022 The patient was seen and examined in telemetry unit She remains very anxious that her heart rate is not getting any better She denies any palpitation or shortness of breath Her weakness has been getting better though 03/29/2022 Patient was seen and examined in telemetry unit She has been generally weak but denies any chest pain and/or palpitation Her heart rate remains elevated at 114 as of this morning 03/30/2022 The patient was seen and examined in telemetry unit She is status post cardioversion and reversion to sinus rhythm Has been feeling a little better Remains weak and lethargic and sodium still remains low 03/31/2022 The patient was seen and examined in telemetry unit She has been generally weak and lethargic Denies any shortness of breath and/or palpitation Wants to continue with physical therapy to get better Blood pressure is noted to be low at 95/69 without any symptoms on ambulation 04/01/2022 The patient was seen and examined in telemetry unit She has been better but is still remains weak and tired Denies any significant symptoms but later on went back to atrial fibrillation with RVR 04/02/2022 The patient was seen and examined in telemetry unit She has been feeling better but she went back into A. fib with RVR Did not have any cardioversion today but will have ablation with pacemaker placement tomorrow Denies any chest pain and no palpitation Review of Systems Review of Systems: All systems reviewed and are unremarkable except as noted below Respiratory: Minimal shortness of breath with exertion Neurologic: Generalized weakness Physical Exam Physical Exam: Sitting on a chair without any acute distress Constitutional: well developed, well nourished, + ill appearing and + obese Eyes: PERRL, conjunctivae normal, anicteric sclerae ENMT: external ear and nose normal, oropharynx normal Neck: trachea midline, no thyromegaly Respiratory: no respiratory distress Auscultation: + diminished lung sounds and + crackles (Minimal crackles at the bases) Cardiovascular: Rate/Rhythm: regular rate, regular rhythm and + irregularly irregular; not tachycardic Heart Sounds: normal S1 and normal S2; no murmur Extremities: + edema (Trace edema bilaterally) Gastrointestinal (Abdomen): Inspection/Auscultation: normal bowel sounds; abdomen not distended Percussion/Palpation: abdomen soft; abdomen nontender Musculoskeletal: No acute arthritis in any joint Neurologic: normal touch/pain/proprioception and moves all extremities; no focal motor deficits Psychiatric: A+Ox3, euthymic affect Lymphatic: no cervical or axillary lymphadenopathy Results & Data Results & Data ([facility]) Vital Signs (Past 12 Hours) Vital Signs Temp Pulse Pulse Resp BP Pulse Ox O2 Del Method 04/02/22 11:42 36.4 C L 95 H 18 105/74 95 Room Air 04/02/22 07:30 Room Air 04/02/22 07:37 36.8 C 126 H 16 90/66 L 95 Room Air 04/02/22 06:59 145 H 04/02/22 06:00 100/67 04/02/22 02:39 36.7 C 127 H 14 88/72 L 94 Room Air Laboratory Results [facility] 04/02/22 05:15 Sodium 124 L Potassium 4.5 Chloride 89 L Carbon Dioxide 27 BUN 22 Creatinine 0.61 Glucose 124 H Calcium 9.4 Liver Function 04/01/22 04/02/22 Range/Units 15:17 05:15 AST 37 34 (13-39) U/L ALT 52 49 (7-52) U/L Medications Administered Current Inpatient Medications Acetaminophen (Acetaminophen 500 Mg Tab) 1,000 mg PO Q8H PRN PRN Reason: Pain Stop: 04/29/22 14:02 Last Admin: 03/31/22 20:18 Dose: 1,000 mg Amiodarone HCl (Amiodarone 200 Mg Tab) 400 mg PO BIDM LINDA Stop: 04/04/22 17:01 Last Admin: 04/02/22 07:40 Dose: 400 mg Amiodarone HCl (Amiodarone 200 Mg Tab) 200 mg PO BIDM LINDA Stop: 05/05/22 07:59 Apixaban (Apixaban 5 Mg Tablet) 5 mg PO BID LINDA Stop: 04/25/22 20:59 Last Admin: 04/02/22 11:52 Dose: 5 mg Cephalexin HCl (Cephalexin 500 Mg Cap) 500 mg PO TID LINDA Stop: 04/02/22 20:59 Last Admin: 04/02/22 11:51 Dose: 500 mg Furosemide (Furosemide Inj 20 Mg/2 Ml Vial) 40 mg IV BID LINDA Stop: 05/01/22 20:59 Losartan Potassium (Losartan Potassium 25 Mg Tab) 25 mg PO DAILY LINDA Stop: 04/26/22 08:59 Melatonin (Melatonin 3 Mg Tab) 3 mg PO HS LINDA Stop: 04/25/22 20:59 Last Admin: 04/01/22 19:57 Dose: Not Given Metoprolol Succinate (Metoprolol Succ 25mg Ext Rel Tab) 25 mg PO BID LINDA Stop: 05/01/22 20:59 Last Admin: 04/01/22 21:06 Dose: Not Given Metoprolol Tartrate (Metoprolol Tartrate 1 Mg/Ml Vial) 5 mg IV Q2H PRN PRN Reason: Tachycardia Stop: 04/25/22 21:59 Last Admin: 03/29/22 02:46 Dose: 5 mg Multivitamins (Multivitamin Tab) 1 tab PO QAM LINDA Stop: 04/26/22 08:59 Last Admin: 04/02/22 11:52 Dose: 1 tab Paroxetine HCl (Paroxetine Hcl 10 Mg Tab) 10 mg PO DAILY LINDA Stop: 04/27/22 12:44 Last Admin: 04/02/22 11:53 Dose: 10 mg Potassium Chloride (Potassium Chloride Crtab 20 Meq Tabcr) 20 meq PO BID LINDA Stop: 04/28/22 08:59 Last Admin: 04/02/22 11:52 Dose: 20 meq Urea (Urea (Urea-Na) 15 Gm Pack) 30 gm PO BID LINDA Stop: 04/28/22 10:29 Last Admin: 04/02/22 08:46 Dose: Not Given (1) Pulmonary edema Chronicity: acute Qualified Code(s): J81.0 - Acute pulmonary edema
[2022-04-02 15:40] LABS: Basophils # (auto) 0.01 K/uL (0-0.2); Basophils % (auto) 0.1 %; Hematocrit (blood only) 44.2 % (34.1-44.9); Hemoglobin 15.3 g/dl (12.0-16.0); Immature Granulocytes # (auto) 0.05 K/uL (0.00-0.02); Immature Granulocytes % (auto) 0.6 %; Lymphocytes % (auto) 8.7 %; Mean Corpuscular Hemoglobin 30.4 pg (25.0-34.0); Mean Corpuscular Hgb Conc 34.6 g/dL (32.0-36.0); Mean Corpuscular Volume 87.7 fL (80.0-100.0); Mean Platelet Volume 9.9 fL (9.4-12.3); Monocytes # (auto) 0.65 K/uL (0.24-0.82); Monocytes % (auto) 8.1 %; Neutrophils # (auto) 6.66 K/uL (1.4-6.5); Neutrophils % (auto) 82.5 %; Platelet Count 176 K/uL (130-400); RDW Coefficient of Variation 15.9 % (11.5-14.5); RDW Standard Deviation 49.7 fL (36.4-46.3); Red Blood Count 5.04 M/uL (3.93-5.22); White Blood Count 8.07 K/ul (4.8-10.8)
[2022-04-02 15:51] LABS: INR 1.5 (0.9-1.1); Partial Thromboplastin Ratio 1.3; Partial Thromboplastin Time 34.8 Seconds (21.0-31.0); Prothrombin Time 15.3 Seconds (9.0-12.0)
[2022-04-02] MEDS: MELATONIN 3 MG TAB PO SCH (20:22)
--- NOTE | 2022-04-02 20:45 | Electrocardiogram Report ---
Test Reason : Blood Pressure : / mmHG Vent. Rate : 141 BPM Atrial Rate : 105 BPM P-R Int : 000 ms QRS Dur : 096 ms QT Int : 362 ms P-R-T Axes : 000 -04 182 degrees QTc Int : 554 ms Atrial fibrillation with rapid ventricular response Cannot rule out Anterior infarct (cited on or before 30-MAR-2022) Abnormal ECG When compared with ECG of 30-MAR-2022 07:41, Atrial fibrillation has replaced Sinus rhythm Vent. rate has increased BY 68 BPM Confirmed by Nils Antoine ([id number]) on 04/02/2022 8:45:10 PM Referred By: REFERRED SELF Confirmed By:Nils Antoine
[2022-04-02] MEDS ORDERED: HEPARIN SODIUM/DEXTROSE 25,000 UNITS/500 ML BAG IV SCH (21:00)
[2022-04-02] MEDS: Heparin IV Adult Wt-Based Low-Dose *NO* Bolus Protocol IV SCH (21:29)
--- NOTE | 2022-04-02 21:46 | Electrocardiogram Report ---
Test Reason : Blood Pressure : / mmHG Vent. Rate : 129 BPM Atrial Rate : 144 BPM P-R Int : 000 ms QRS Dur : 090 ms QT Int : 356 ms P-R-T Axes : 000 000 206 degrees QTc Int : 522 ms Atrial fibrillation with rapid ventricular response Cannot rule out Anterior infarct Abnormal ECG When compared with ECG of 01-APR-2022 12:10, No significant change Confirmed by Nils Antoine ([id number]) on 04/02/2022 9:45:45 PM Referred By: REFERRED SELF Confirmed By:Nils Antoine
[2022-04-03 02:32] LABS: Basophils # (auto) 0.02 K/uL (0-0.2); Basophils % (auto) 0.3 %; Hematocrit (blood only) 44.2 % (34.1-44.9); Hemoglobin 15.2 g/dl (12.0-16.0); Immature Granulocytes # (auto) 0.05 K/uL (0.00-0.02); Immature Granulocytes % (auto) 0.7 %; Lymphocytes # (auto) 0.65 K/uL (1.2-3.4); Mean Corpuscular Hemoglobin 30.3 pg (25.0-34.0); Mean Corpuscular Hgb Conc 34.4 g/dL (32.0-36.0); Mean Platelet Volume 10.3 fL (9.4-12.3); Monocytes # (auto) 0.63 K/uL (0.24-0.82); Monocytes % (auto) 8.7 %; Neutrophils # (auto) 5.86 K/uL (1.4-6.5); Neutrophils % (auto) 81.3 %; Platelet Count 169 K/uL (130-400); RDW Coefficient of Variation 16.3 % (11.5-14.5); RDW Standard Deviation 50.9 fL (36.4-46.3); Red Blood Count 5.02 M/uL (3.93-5.22); White Blood Count 7.21 K/ul (4.8-10.8)
[2022-04-03 02:56] LABS: BUN Creatinine Ratio 38.3 (10-20); Calcium 9.6 mg/dl (8.5-10.1); Est GFR (African American) 102.6 ml/min; Est GFR (Non-African American) 88.5 ml/min; Potassium 5.1 mmol/L (3.5-5.1)
[2022-04-03 03:16] LABS: Partial Thromboplastin Ratio 2.9
[2022-04-03 03:27] LABS: Partial Thromboplastin Time 80.3 Seconds (21.0-31.0)
[2022-04-03] MEDS: AMIODARONE 200 MG TAB PO SCH ×2 (09:03→17:11)
--- NOTE | 2022-04-03 10:35 | Nephrology Progress Note ---
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 - Lasix dosing has been erratic due to her hypotensive state complicated by paraoxymal AF. - Only way forward is controlling her HR to achieve a decent BP and regular lasix. - Recommend Lasix 30 mg iv TID No salt tablets. I also suspect that she is drinking more that allowed,Strictly FR to 1.2 lit - Daily standing weight preferably on the same scale with strict I/o - q12 hr sodium Subjective Developed atrial fibrillation again. getting Pacemaker today ?? Comfortable on exam with chest pain, palpitations NO change in pedal edema Review of Systems Review of Systems: All systems reviewed & are unremarkable except as noted in HPI & below Physical Exam Physical Exam: GENERAL: Elderly white female who is in mild respiratory distress. HEENT: Mucous membrane is dry. NECK: Supple, difficult to asses JVD due to body habitus. CHEST:+Diminished lung sounds and + crackles (Minimal crackles at the bases CARDIOVASCULAR: S1 and S2, regular. ABDOMEN: Soft, nontender. EXTREMITIES:1+ bilateral pedal edema. NEUROLOGICALLY: Awake, alert, oriented x3, normal speech. Moving all 4 extremities Results & Data ([facility]) Vital Signs (Past 12 Hours) Vital Signs Temp Pulse Pulse Resp BP Pulse Ox O2 Del Method 04/03/22 08:45 Room Air 04/03/22 08:02 36.3 C L 146 H 20 97/56 L 94 Room Air 04/03/22 03:32 36.4 C L 128 H 16 115/77 95 Room Air 04/02/22 23:10 36.7 C 132 H 16 100/62 97 Room Air 04/02/22 23:00 137 H
[2022-04-03 10:57] LABS: Partial Thromboplastin Ratio 1.9
[2022-04-03 10:59] LABS: Partial Thromboplastin Time 52.1 Seconds (21.0-31.0)
[2022-04-03] MEDS: LIDOCAINE 5% 1 PATCH TD SCH (11:00)
[2022-04-03] MEDS ORDERED: LIDOCAINE 1% LOCAL 20 ML VIAL ONE (12:46)
[2022-04-03] MEDS ORDERED: WATER, STERILE FOR INJ 10 ML VIAL ONE (12:46)
[2022-04-03] MEDS ORDERED: BUPIVACAINE 0.25% 30 ML VIAL ONE (12:46)
[2022-04-03] MEDS ORDERED: VANCOMYCIN HCL 1000MG/20ML VIAL ONE (12:46)
[2022-04-03] MEDS ORDERED: MIDAZOLAM HCL 5 MG/ML 1 ML VIAL ONE (12:56)
[2022-04-03] MEDS ORDERED: fentaNYL citrate 100 MCG/2 ML VIAL ONE (12:56)
[2022-04-03] MEDS ORDERED: ceFAZolin 330 MG/ML 1 GM VIAL ONE (12:57)
[2022-04-03] MEDS ORDERED: Nursing to Pharmacy Communication SCH (13:00)
--- NOTE | 2022-04-03 13:12 | Pre Anesthesia Assessment ---
Date of Service April 03, 2022 Pre Sedation Assessment Vital Signs Temp Pulse Pulse Resp BP Pulse Ox O2 Del Method 04/03/22 11:29 36.3 C L 111 H 18 125/86 95 Room Air 04/03/22 08:45 Room Air 04/03/22 08:02 36.3 C L 146 H 20 97/56 L 94 Room Air 04/03/22 03:32 36.4 C L 128 H 16 115/77 95 Room Air 04/02/22 23:10 36.7 C 132 H 16 100/62 97 Room Air 04/02/22 23:00 137 H 04/02/22 19:53 36.8 C 136 H 18 115/53 L 94 Room Air 04/02/22 19:28 Room Air 04/02/22 15:30 36.6 C 111 H 18 97/74 L 93 Room Air 04/02/22 15:05 143 H Cardiovascular + tachycardic and + irregularly irregular Respiratory + respiratory effort normal Pre-Sedation Airway Assessment Smoking Status: Never smoker Hx Sleep Apnea: No Hx Difficult Intubation: No Short, Thick Neck: No Thyromental Distance: > or= 3.5 Finger Breadths Mallampati Class: III ASA: ASA3 Procedure Planning Contraindications for Sedation: none Current Medications Reviewed: Yes Notes The planned sedation has been discussed with the patient. Informed Consent was obtained. I have identified the patient, determined the appropriateness of sedation and have assessed the patient immediately prior to the procedure. All medicine(s) and interventions are by my order.
--- NOTE | 2022-04-03 15:06 | Post Anesthesia Assessment ---
Date of Service April 03, 2022 Post Sedation Assessment Vital Signs Temp Pulse Pulse Resp BP Pulse Ox O2 Del Method 04/03/22 13:10 36.6 C 152 H 22 118/85 97 Room Air 04/03/22 11:29 36.3 C L 111 H 18 125/86 95 Room Air 04/03/22 08:45 Room Air 04/03/22 08:02 36.3 C L 146 H 20 97/56 L 94 Room Air 04/03/22 03:32 36.4 C L 128 H 16 115/77 95 Room Air 04/02/22 23:10 36.7 C 132 H 16 100/62 97 Room Air 04/02/22 23:00 137 H 04/02/22 19:53 36.8 C 136 H 18 115/53 L 94 Room Air 04/02/22 19:28 Room Air 04/02/22 15:30 36.6 C 111 H 18 97/74 L 93 Room Air Recovery Score Activity: Moves 4 extremities Respiration: Deep Breath/Cough Circulation: +/-20% PreAnes Value Consciousness: Fully Awake Oxygen Saturation: > 92% On Room Air Post Anesthesia Score: 10 Discharge Sedation Level of Care: Fast Track Phase II Post Sedation Plan On clinical assessment, the patient appears to have tolerated the sedation without complications. Patient is recovering as anticipated. Patient will continue to be monitored by nursing and may be discharged when sedation discharge criteria are met per below protocol. Upon Completions of procedure up to 15 minutes continue every 5 minute vital signs and the P.A.R. score; then discharge to a Phase I or Fast Track to Phase II per the following guidelines: * Discharge Patient to appropriate Phase II area if PAR is 8 or greater or return to pre- procedure baseline. The post - procedure orders will be as directed. * If PAR score is less than 8 or not return to pre-procedure baseline then patient will follow Phase I monitoring till PAR is reached for Phase II. The Phase I may be done in procedure room or may call to secure a Phase I area. * If naloxone or flumazenil are used for reversal, hold in Phase I for continued monitoring from when last reversal dose was given for a minimum of 60 minutes or longer pending the nurse and/or physician discretion of patient condition before discharge to Phase II. Please call the Sedation Physician to re-evaluate and complete post-note for discharge to Phase II area. Do NOT discharge from procedure sedation or Phase 1 until post- sedation evaluation note is complete by procedure /sedation MD Sedation Discharge Instructions to be given to the patient at discharge to home.
--- NOTE | 2022-04-03 15:06 | Electrophysiology Report ---
Date of Service April 03, 2022 Electrophysiology Procedure Electrophysiology Procedure Report Procedure performed: Implantation of biventricular pacemaker Staff director of broadcast: Miguel Lopes MD Indication: The patient is a 76-year-old woman with a history of persistent atrial fibrillation and associated high ventricular rates. Medical therapy is been ineffectual in controlling her heart rates. She has developed a mild cardiomyopathy as well. More aggressive therapy was felt to be indicated and she was advised to consider an AV node ablation. Pacemaker is being implanted for planned complete heart block. Biventricular device was selected as she has an element of reduced LV systolic function will pace nearly 100% of the time. Procedure in detail: The patient was informed of the risks benefits and alternatives to the intended procedure and she wished to proceed. She was taken to the electrophysiology suite in a fasting state. A preoperative antibiotic had been administered. The patient was monitored electrocardiographically throughout today's procedure and conscious sedation was administered per protocol. The left upper pectoral area is prepped and draped in usual sterile fashion. This area was anesthetized using subcutaneous administration of a xylocaine solution. An incision was made at this site and carried down to the prepectoralis fascia using sharp dissection. Electrocautery was also employed for dissection as well as for hemostasis. A de vice pocket was fashioned tissues above the pectoralis muscle. Subsequent to this maneuver the left axillary vein was accessed using modified Seldinger technique. A sheath was placed over guidewire and used facilitate passage of the pacing lead to the right ventricular apex under fluoroscopic guidance. Adequate sensing threshold parameters were obtained prior to active fixation of this lead to the endocardial surface. The proximal portion lead was then sutured to prepectoralis fascia using nonabsorbable suture. A sheath was placed over the remaining guidewire and used facilitate passage of the guiding catheter for engagement the coronary sinus. Limited coronary sinus venography was then performed in order to identify a suitable target vessel. Once identified standard guidewire techniques were employed in order to deliver the lead to the target vessel. Adequate sensing and threshold parameters were obtained prior to removal of the guiding catheter and sheath. The proximal portion of the lead was then sutured the prepectoral fascia using nonabsorbable suture. The device pocket was irrigated with antibiotic solution. The leads were then attached to the device. The device and leads were then placed in the pocket and pocket was closed in 3 layers of absorbable suture. Steri-Strips and sterile dressing were applied. The device was tested noninvasively prior to conclusion the procedure. The patient tolerated procedure well there no immediate complications. Equipment used: New pulse generator: [employer]. Model number: [id number] serial number [id number] Right ventricular lead: [employer]. Model number: [id number] serial number [id number] Left ventricular lead: [employer] model number 4298 serial number [id number] Measured data: Right ventricular lead: R-waves measured 11.3 mV. Pacing threshold was 2 volts at 0.5 milliseconds with a pacing impedance of 532 Ohms Impression: Successful implantation of biventricular pacemaker. Atrial port was plugged. No atrial lead was implanted as the patient is in presumed permanent atrial fibrillation. [facility] Electrophysiology codes Pacing Procedure 1: Pacin Insert/Replace Pacer V Procedure 2: Pacin BiV electrode w/Pacer / ICD implant, add on code PG Moderate Sedation Codes Moderate Sedation Codes Procedure 1: Sedation/Anesthesia: 14319 Mod Sedation by the same physician;Init15 Min Child Age 5 & Up Procedure 2: Sedation/Anesthesia: 15816 Mod Sedation by the same physician; Ea [id number] Minutes
--- NOTE | 2022-04-03 16:48 | Cardiology Progress Note ---
Date of Service April 03, 2022 Assessment & Plan (1) Persistent atrial fibrillation: (2) Atrial fibrillation with RVR: (3) Cardiomyopathy: (4) Aortic stenosis: (5) HTN (hypertension): (6) Heart failure with mid-range ejection fraction: (7) Elevated transaminase level: Plan 1. Persistent atrial fibrillation with rapid ventricular response: Patient is not maintain sinus rhythm despite cardioversion amiodarone. He continues to have very elevated heart rates and did not tolerate rate control medications due to hypotension. There has been significant difficulty affecting any diuresis or improvement in her clinical condition due to her elevated heart rates and poor response to conventional therapy. It was felt she will require more aggressive therapy. She was taken to the electrophysiology suite today and a biventricular pacemaker was implanted. Our plan is for AV node ablation tomorrow. At that point we will likely discontinue amiodarone. She will need to continue systemic anticoagulation indefinitely. Given her device implantation today we would like to hold anticoagulation at least until morning. 2. Cardiomyopathy: Mildly reduced LV systolic function. Likely due to persistent tachycardia. Hopefully with normalization of her rates and rhythm we can affect improvement in her LV function. 3. Aortic stenosis: Mild. Follow over time. 4. Hypertension: Patient blood pressures been relatively normotensive today. 5. Hyponatremia: Has been managed by nephrology. Remains hyponatremic. Difficulty affecting diuresis due to her hypotension. 6. Chronic heart failure with midrange EF: Biventricular pacer implanted today. Hopefully with improvement in her heart rates will see improvement in the LV function. Some point may have an opportunity to start standard heart failure therapy.. Admission and Anticipated Discharge Date Admission Date: March 26, 2022 Subjective This afternoon the patient comes in feeling tired. Somewhat short of breath as well. Review of Systems Review of Systems: Per HPI Physical Exam Physical Exam: She is alert and oriented x3. Mood affect appear normal. She answered all questions appropriately. She appeared tired. She was somnolent at times. HEENT: Sclerae are anicteric. Pupils are equal and reactive to light and accommodation. Extraocular movements were intact. Neuro: Cranial nerves intact Lungs: Coarse upper airway sounds. Somewhat increased work of breathing. Cardiac: Irregular heart rhythm. Increased heart rate. Extremities: Patient has bilateral radial pulses that are equal in intensity. There is no evidence cyanosis or clubbing. Moderate peripheral edema Results & Data ([facility]) Vital Signs (Past 12 Hours) Vital Signs Temp Pulse Pulse Pulse Resp BP Pulse Ox 04/03/22 16:35 140 H 20 99/64 L 94 04/03/22 16:20 155 H 20 104/76 93 04/03/22 16:00 155 H 04/03/22 16:05 155 H 18 112/78 92 04/03/22 15:50 36.6 C 168 H 18 118/82 93 04/03/22 15:30 120 H 16 100/80 98 04/03/22 15:15 143 H 16 133/66 98 04/03/22 13:10 36.6 C 152 H 22 118/85 97 04/03/22 11:29 36.3 C L 111 H 18 125/86 95 04/03/22 08:45 04/03/22 08:02 36.3 C L 146 H 20 97/56 L 94 O2 Del Method 04/03/22 16:35 Room Air 04/03/22 16:20 Room Air 04/03/22 16:00 04/03/22 16:05 Room Air 04/03/22 15:50 Room Air 04/03/22 15:30 Room Air 04/03/22 15:15 Room Air 04/03/22 13:10 Room Air 04/03/22 11:29 Room Air 04/03/22 08:45 Room Air 04/03/22 08:02 Room Air Laboratory Results Abnormal Lab Results 04/03/22 04/03/22 04/03/22 02:24 02:24 02:24 WBC 7.21 RBC 5.02 Hgb 15.2 Hct 44.2 MCV 88.0 MCH 30.3 MCHC 34.4 RDW Std Deviation 50.9 H RDW Coeff of Carlita 16.3 H Plt Count 169 MPV 10.3 Immature Gran % (Auto) 0.7 Neut % (Auto) 81.3 Lymph % (Auto) 9.0 Surry % (Auto) 8.7 Eos % (Auto) 0.0 Baso % (Auto) 0.3 Neut # (Auto) 5.86 Lymph # (Auto) 0.65 L Surry # (Auto) 0.63 Eos # (Auto) 0.00 Baso # (Auto) 0.02 Immature Gran # (Auto) 0.05 H APTT 80.3 H* PTT Ratio 2.9 Sodium 124 L Potassium 5.1 Chloride 90 L Carbon Dioxide 28 Anion Gap 6 BUN 23 Creatinine 0.60 Est Cr Clr Drug Dosing 98.0 Est GFR ( Amer) 102.6 Est GFR (Non-Af Amer) 88.5 BUN/Creatinine Ratio 38.3 H Glucose 152 H Calcium 9.6 AST 36 ALT 50 04/03/22 04/03/22 09:18 10:08 WBC RBC Hgb Hct MCV MCH MCHC RDW Std Deviation RDW Coeff of Carlita Plt Count MPV Immature Gran % (Auto) Neut % (Auto) Lymph % (Auto) Surry % (Auto) Eos % (Auto) Baso % (Auto) Neut # (Auto) Lymph # (Auto) Surry # (Auto) Eos # (Auto) Baso # (Auto) Immature Gran # (Auto) APTT Cancelled 52.1 H* PTT Ratio Cancelled 1.9 Sodium Potassium Chloride Carbon Dioxide Anion Gap BUN Creatinine Est Cr Clr Drug Dosing Est GFR ( Amer) Est GFR (Non-Af Amer) BUN/Creatinine Ratio Glucose Calcium AST ALT
[2022-04-03] MEDS: POTASSIUM CHLORIDE CRTAB 20 MEQ TABCR PO SCH (17:07)
[2022-04-03] MEDS: MULTIVITAMIN TAB PO SCH (17:11)
[2022-04-03] MEDS: PARoxetine HCL 10 MG TAB PO SCH (17:12)
[2022-04-03] MEDS: UREA (UREA-NA) 15 GM PACK PO SCH ×3 (17:12→19:34)
[2022-04-03] MEDS: METOPROLOL TARTRATE 1 MG/ML VIAL IV PRN (17:33)
[2022-04-03] MEDS: SODIUM CHLORIDE 0.9% 500 ML IV SCH (18:28)
[2022-04-03] MEDS: MELATONIN 3 MG TAB PO SCH (19:34)
[2022-04-03] MEDS ORDERED: ceFAZolin 1000MG 1,000 MG/7.5 ML SYR IV ONE (22:00)
[2022-04-04] MEDS: SODIUM CHLORIDE 0.9% 500 ML IV SCH ×4 (02:43→20:40)
[2022-04-04] MEDS: METOPROLOL TARTRATE 1 MG/ML VIAL IV PRN (05:09)
[2022-04-04 06:30] LABS: Basophils # (auto) 0.01 K/uL (0-0.2); Basophils % (auto) 0.1 %; Hematocrit (blood only) 43.8 % (34.1-44.9); Immature Granulocytes # (auto) 0.05 K/uL (0.00-0.02); Immature Granulocytes % (auto) 0.6 %; Lymphocytes # (auto) 0.53 K/uL (1.2-3.4); Lymphocytes % (auto) 6.1 %; Mean Corpuscular Hemoglobin 30.2 pg (25.0-34.0); Mean Corpuscular Hgb Conc 34.2 g/dL (32.0-36.0); Mean Corpuscular Volume 88.3 fL (80.0-100.0); Mean Platelet Volume 10.6 fL (9.4-12.3); Monocytes # (auto) 0.73 K/uL (0.24-0.82); Monocytes % (auto) 8.4 %; Neutrophils # (auto) 7.37 K/uL (1.4-6.5); Neutrophils % (auto) 84.8 %; Platelet Count 161 K/uL (130-400); RDW Coefficient of Variation 16.8 % (11.5-14.5); Red Blood Count 4.96 M/uL (3.93-5.22); White Blood Count 8.69 K/ul (4.8-10.8)
[2022-04-04 06:51] LABS: BUN Creatinine Ratio 35.2 (10-20); Calcium 9.7 mg/dl (8.5-10.1); Creatinine Clr Calc Pharmacy 82.7 ml/min; Est GFR (African American) 95.9 ml/min; Est GFR (Non-African American) 82.7 ml/min; Magnesium 1.8 mg/dl (1.7-2.4)
[2022-04-04] MEDS: Heparin IV Adult Wt-Based Low-Dose *NO* Bolus Protocol IV SCH (06:54)
[2022-04-04] MEDS: LIDOCAINE 5% 1 PATCH TD SCH (08:16)
[2022-04-04] MEDS: UREA (UREA-NA) 15 GM PACK PO SCH ×2 (08:16→20:34)
[2022-04-04] MEDS: AMIODARONE 200 MG TAB PO SCH (08:16)
--- NOTE | 2022-04-04 09:56 | XRay Report ---
XR chest 2V PA/lateral HISTORY: 76 years-old Female EXACT TIME ORDERED Evaluate for pneumothorax and l status post placemen t of a left subclavian pacer COMPARISON: 03/26/2022 TECHNIQUE: PA and lateral views of the chest FINDINGS: The cardiac silhouette is enlarged. Pulmonary vascular congestion with interstitial coarsening. Right greater than left layering pleural effusions with bibasilar consolidation. Lung apices are partially obscured by the patient's chin. Left subclavian pacer. A sponge projects over the left axilla. No de finite postprocedural pneumothorax identified. IMPRESSION: 1. Status post placement of a left subclavian pacer. No definite postprocedural pneumothorax identifi ed. 2. Cardiomegaly with pulmonary vascular congestion. 3. Increased size of the right greater left layering pleural effusions with bibasilar consolidation. 4. Surgical sponge projects over the left shoulder. ACT 112: Negative or not required by law. The above report was generated using voice recognition software. It may contain grammatical, syntax o r spelling errors. Electronically signed by: Matthias Goins M.D. 04/04/2022 9:54 AM
--- NOTE | 2022-04-04 10:42 | Nephrology Progress Note ---
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 - Lasix dosing has been erratic due to her hypotensive state complicated by paroxysmal AF. - Only way forward is controlling her HR to achieve a decent BP and regular lasix. - Recommend Lasix 40 mg iv bID No salt tablets. Subjective Got Pacemaker. Now getting Ablation today. BP is better Comfortable on exam with chest pain, palpitations Has pedal edema Review of Systems Review of Systems: All systems reviewed & are unremarkable except as noted in HPI & below Physical Exam Physical Exam: GENERAL: Elderly white female who is in mild respiratory distress. HEENT: Mucous membrane is dry. NECK: Supple, difficult to asses JVD due to body habitus. CHEST:+Diminished lung sounds and + crackles (Minimal crackles at the bases CARDIOVASCULAR: S1 and S2, regular. ABDOMEN: Soft, nontender. EXTREMITIES:1+ bilateral pedal edema. NEUROLOGICALLY: Awake, alert, oriented x3, normal speech. Moving all 4 extremities Results & Data ([facility]) Vital Signs (Past 12 Hours) Vital Signs Temp Pulse Pulse Resp BP Pulse Ox O2 Del Method 04/04/22 08:29 Room Air 04/04/22 07:00 138 H 04/04/22 07:25 36.3 C L 96 H 20 112/77 93 Room Air 04/04/22 05:09 150 H 04/04/22 03:49 36.4 C L 137 H 16 133/71 93 Room Air 04/03/22 23:43 135 H 04/03/22 23:29 36.4 C L 140 H 12 102/70 94 Room Air
[2022-04-04] MEDS: MULTIVITAMIN TAB PO SCH (11:31)
[2022-04-04] MEDS: PARoxetine HCL 10 MG TAB PO SCH (11:32)
--- NOTE | 2022-04-04 12:54 | Pre Anesthesia Assessment ---
Date of Service April 04, 2022 Pre Sedation Assessment Vital Signs Temp Pulse Pulse Pulse Resp BP BP 04/04/22 11:47 150 H 115/89 04/04/22 11:07 36.3 C L 77 20 113/79 04/04/22 08:29 04/04/22 07:00 138 H 04/04/22 07:25 36.3 C L 96 H 20 112/77 04/04/22 05:09 150 H 04/04/22 03:49 36.4 C L 137 H 16 133/71 04/03/22 23:43 135 H 04/03/22 23:29 36.4 C L 140 H 12 102/70 04/03/22 19:32 36.3 C L 117 H 14 105/73 04/03/22 19:12 04/03/22 18:30 122 H 20 94/70 L 04/03/22 17:35 160 H 18 108/74 04/03/22 17:33 160 H 108/74 04/03/22 17:05 154 H 20 98/70 L 04/03/22 16:35 140 H 20 99/64 L 04/03/22 16:20 155 H 20 104/76 04/03/22 16:00 155 H 04/03/22 16:05 155 H 18 112/78 04/03/22 15:50 36.6 C 168 H 18 118/82 04/03/22 15:30 120 H 16 100/80 04/03/22 15:15 143 H 16 133/66 04/03/22 13:10 36.6 C 152 H 22 118/85 Pulse Ox O2 Del Method 04/04/22 11:47 04/04/22 11:07 94 Room Air 04/04/22 08:29 Room Air 04/04/22 07:00 04/04/22 07:25 93 Room Air 04/04/22 05:09 04/04/22 03:49 93 Room Air 04/03/22 23:43 04/03/22 23:29 94 Room Air 04/03/22 19:32 92 Room Air 04/03/22 19:12 Room Air 04/03/22 18:30 92 Room Air 04/03/22 17:35 93 Room Air 04/03/22 17:33 04/03/22 17:05 94 Room Air 04/03/22 16:35 94 Room Air 04/03/22 16:20 93 Room Air 04/03/22 16:00 04/03/22 16:05 92 Room Air 04/03/22 15:50 93 Room Air 04/03/22 15:30 98 Room Air 04/03/22 15:15 98 Room Air 04/03/22 13:10 97 Room Air Cardiovascular + tachycardic and + irregularly irregular Respiratory + respiratory effort normal Pre-Sedation Airway Assessment Smoking Status: Never smoker Hx Sleep Apnea: No Hx Difficult Intubation: No Short, Thick Neck: Yes Thyromental Distance: > or= 3.5 Finger Breadths Oral Cavity: + Dentures Mallampati Class: III ASA: ASA3 NPO Status Date of Last Intake of Fluids: 04/04/22 Time of Last Intake of Fluids: 07:00 Last Oral Intake of Fluids Comment: sips of water with meds Date of Last Intake of Solid Food: 04/03/22 Time of Last Intake of Solid Foods: 18:00 Procedure Planning Contraindications for Sedation: none Current Medications Reviewed: Yes Notes The planned sedation has been discussed with the patient. Informed Consent was obtained. I have identified the patient, determined the appropriateness of sedation and have assessed the patient immediately prior to the procedure. All medicine(s) and interventions are by my order.
[2022-04-04] MEDS ORDERED: MIDAZOLAM HCL 5 MG/ML 1 ML VIAL ONE (12:58)
[2022-04-04] MEDS ORDERED: fentaNYL citrate 100 MCG/2 ML VIAL ONE (12:58)
[2022-04-04] MEDS ORDERED: HEPARIN (PORCINE) 1000 UNIT/ML 10 ML (CATH LAB USE ONLY) ONE (13:03)
[2022-04-04] MEDS ORDERED: ISOPROTERENOL HCL 0.2 MG/ML 5 ML AMP IV ONE (13:27)
--- NOTE | 2022-04-04 13:50 | Post Anesthesia Assessment ---
Date of Service April 04, 2022 Post Sedation Assessment Vital Signs Temp Pulse Pulse Pulse Resp BP BP 04/04/22 11:47 150 H 115/89 04/04/22 11:07 36.3 C L 77 20 113/79 04/04/22 08:29 04/04/22 07:00 138 H 04/04/22 07:25 36.3 C L 96 H 20 112/77 04/04/22 05:09 150 H 04/04/22 03:49 36.4 C L 137 H 16 133/71 04/03/22 23:43 135 H 04/03/22 23:29 36.4 C L 140 H 12 102/70 04/03/22 19:32 36.3 C L 117 H 14 105/73 04/03/22 19:12 04/03/22 18:30 122 H 20 94/70 L 04/03/22 17:35 160 H 18 108/74 04/03/22 17:33 160 H 108/74 04/03/22 17:05 154 H 20 98/70 L 04/03/22 16:35 140 H 20 99/64 L 04/03/22 16:20 155 H 20 104/76 04/03/22 16:00 155 H 04/03/22 16:05 155 H 18 112/78 04/03/22 15:50 36.6 C 168 H 18 118/82 04/03/22 15:30 120 H 16 100/80 04/03/22 15:15 143 H 16 133/66 Pulse Ox O2 Del Method 04/04/22 11:47 04/04/22 11:07 94 Room Air 04/04/22 08:29 Room Air 04/04/22 07:00 04/04/22 07:25 93 Room Air 04/04/22 05:09 04/04/22 03:49 93 Room Air 04/03/22 23:43 04/03/22 23:29 94 Room Air 04/03/22 19:32 92 Room Air 04/03/22 19:12 Room Air 04/03/22 18:30 92 Room Air 04/03/22 17:35 93 Room Air 04/03/22 17:33 04/03/22 17:05 94 Room Air 04/03/22 16:35 94 Room Air 04/03/22 16:20 93 Room Air 04/03/22 16:00 04/03/22 16:05 92 Room Air 04/03/22 15:50 93 Room Air 04/03/22 15:30 98 Room Air 04/03/22 15:15 98 Room Air Recovery Score Activity: Moves 4 extremities Respiration: Deep Breath/Cough Circulation: +/-20% PreAnes Value Consciousness: Fully Awake Oxygen Saturation: > 92% On Room Air Post Anesthesia Score: 10 Discharge Sedation Level of Care: Fast Track Phase II Post Sedation Plan On clinical assessment, the patient appears to have tolerated the sedation without complications. Patient is recovering as anticipated. Patient will continue to be monitored by nursing and may be discharged when sedation discharge criteria are met per below protocol. Upon Completions of procedure up to 15 minutes continue every 5 minute vital signs and the P.A.R. score; then discharge to a Phase I or Fast Track to Phase II per the following guidelines: * Discharge Patient to appropriate Phase II area if PAR is 8 or greater or return to pre- procedure baseline. The post - procedure orders will be as directed. * If PAR score is less than 8 or not return to pre-procedure baseline then patient will follow Phase I monitoring till PAR is reached for Phase II. The Phase I may be done in procedure room or may call to secure a Phase I area. * If naloxone or flumazenil are used for reversal, hold in Phase I for continued monitoring from when last reversal dose was given for a minimum of 60 minutes or longer pending the nurse and/or physician discretion of patient condition before discharge to Phase II. Please call the Sedation Physician to re-evaluate and complete post-note for discharge to Phase II area. Do NOT discharge from procedure sedation or Phase 1 until post- sedation evaluation note is complete by procedure /sedation MD Sedation Discharge Instructions to be given to the patient at discharge to home.
--- NOTE | 2022-04-04 13:50 | Electrophysiology Report ---
Date of Service April 04, 2022 Electrophysiology Procedure Electrophysiology Procedure Report Procedure performed: Ablation of AV node Staff trust administrative assistant: Miguel Lopes MD Indication: The patient has persistent atrial fibrillation with elevated ventricular rates despite aggressive medical therapy. She also has congestive heart failure also be a good candidate for a rate control strategy involving AV node ablation. Pacemaker was placed yesterday. Procedure detail: The patient was informed the risks benefits and alternatives to the intended procedure. She understood which proceed. She was taken to the electrophysiology suite in a fasting state. Conscious sedation was administered per protocol the patient was monitored electrocardiographically throughout today's procedure. The right femoral area was prepped and draped in usual sterile fashion. This area was anesthetized using subcutaneous menstruation of lidocaine and Marcaine solution. The right femoral vein was accessed using modified Seldinger technique and 8 Croatian venous sheath was placed at the site over guidewire. The sheath was used facilitate passage of the ablation catheter to the area of the AV node. Radiofrequency lesions were placed at this site until AV conduction terminated. Assessment of the AV william conduction was subsequently performed with increasing doses of isoproterenol. Once the procedure was concluded the catheter and sheath were removed. Hemostasis was achieved at the access site using manual pressure. The patient tolerated procedure well. There were no immediate complications. Ablation: Ablation was carried out and a power limited mode using a irrigated 3.5 mm radiofrequency ablation catheter. Impression: Successful creation of AV block through ablation of the AV node. [facility] Electrophysiology codes EP Procedure 1: Electrophysiology: 26165 Ablation AV Node w/wo pace PG Moderate Sedation Codes Moderate Sedation Codes Procedure 1: Sedation/Anesthesia: 22505 Mod Sedation by the same physician;Init15 Min Child Age 5 & Up Procedure 2: Sedation/Anesthesia: 70023 Mod Sedation by the same physician; Ea [id number] Minutes
--- NOTE | 2022-04-04 14:58 | CT Scan Report ---
CT head/brain wo con CLINICAL HISTORY: 76 years-old Female with stroke. Acute strokelike symptoms TECHNIQUE: Multiple axial CT images of the head were obtained without contrast. A dose lowering tech nique was utilized adhering to the principles of ALARA. CT DOSE: 691.05 mGy.cm COMPARISON: None. FINDINGS: No acute intracranial hemorrhage, midline shift, intracranial mass, hydrocephalus, territorial ischem ia or abnormal extra-axial collection. Motion degraded exam. Involutional changes with white matter h ypodensities suggestive of chronic microvascular ischemic disease. Cerebral vascular calcifications. The calvarium is intact. Hyperostosis frontalis interna. Trace right mastoid effusion. Left mastoid a ir cells and paranasal sinuses are clear. Unremarkable soft tissues. IMPRESSION: Motion degraded exam. No acute intracranial abnormality identified. ACT 112: Negative or not required by law. The above report was generated using voice recognition software. It may contain grammatical, syntax o r spelling errors. Electronically signed by: Matthias Goins M.D. 04/04/2022 2:56 PM
[2022-04-04] MEDS ORDERED: ASPIRIN CHEW 324 MG PO STA (15:19)
[2022-04-04 16:05] LABS: Hematocrit (blood only) 45.3 % (34.1-44.9); Hemoglobin 15.3 g/dl (12.0-16.0); Mean Corpuscular Hemoglobin 30.1 pg (25.0-34.0); Mean Corpuscular Hgb Conc 33.8 g/dL (32.0-36.0); Mean Corpuscular Volume 89.2 fL (80.0-100.0); Mean Platelet Volume 10.5 fL (9.4-12.3); Platelet Count 141 K/uL (130-400); RDW Standard Deviation 52.5 fL (36.4-46.3); Red Blood Count 5.08 M/uL (3.93-5.22); White Blood Count 9.37 K/ul (4.8-10.8)
[2022-04-04 16:26] LABS: Bilirubin,Total 2.6 mg/dl (0.2-1.0); Creatinine Clr Calc Pharmacy 97.8 ml/min; Est GFR (African American) 102.6 ml/min; Est GFR (Non-African American) 88.5 ml/min; Globulin 2.9 gm/dl (2.5-4.0); Magnesium 1.9 mg/dl (1.7-2.4); Phosphorus 3.5 mg/dl (2.5-4.9); Potassium 4.9 mmol/L (3.5-5.1); Total Protein 5.9 gm/dl (6.0-8.3)
[2022-04-04] MEDS ORDERED: ASPIRIN 300 MG SUPP PR ONE (16:45)
[2022-04-04 16:59] LABS: Troponin I High Sensitivity 146.2 pg/ml (0-14)
[2022-04-04] MEDS ORDERED: MoRPHine SULFATE 2 MG/ML CARP IV PRN (17:17)
--- NOTE | 2022-04-04 17:24 | Hospitalist Progress Note ---
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 She is being managed for the following: A. fib with RVR: History of such, on beta-vilma and Eliquis. Presented with 1 week history of weakness and shortness of breath on exertion. 03/27 echo: EF 45 to 50%. Mild global hypokinesis. Mild concentric LVH. A. fib with RVR. Status post IV diltiazem and IV beta-vilma. Could not tolerate IV Cardizem drip due to low blood pressure, heart rate was not responding even after digoxin. Heart rate remained elevated despite amiodarone. Status post cardioversion and reversal to sinus rhythm. Went back to A. fib with RVR with borderline low blood pressure. Cardiology on board, 03/30 cardioversion, 04/03 pacer with ventricular lead, 04/04 AV node ablation. Post ablation EKG with paced rhythm, patient with no chest pain. Continue to monitor over telemetry. Hyponatremia: Admitting sodium of 121, as low as 119 earlier in admission. Likely secondary to poor p.o. intake. Nephrology on board, managing sodium level, slightly improving. Patient does not like urea and has refused it. Patient is still with poor appetite. Will consult dietitian when able. Likely TIA: Post AV node ablation on 04/04/2022, patient was a stroke alert, apparently had right-sided facial droop with dysarthria and right-sided extremity weakness. CT head was negative for any bleed. Received 200 Mg as needed aspirin, speech eval and patient failed swallow screen. Patient n.p.o. for now, speech to follow. Neurochecks. Lipid profile in AM. Neurology consulted and made aware. Cardiology made aware. We will continue with IV fluid until p.o. able. d/w neuro and cardio. Weakness: Multifactorial complicated with poor appetite. PT/OT when able. Will likely need placement. Pulmonary edema: Likely has acute diastolic heart failure secondary to A. fib with RVR. CXR suggestive of congestion. Cautious use of IV fluid as patient is n.p.o. Patient on Lasix per nephrology for hyponatremia management. Patient maintaining on room air. Carbuncle/furuncle of trunk:: Status post antibiotic. Other chronic medical conditions: HTN --> continue home meds as and when able. DVT prophylaxis: Eliquis on hold, will likely resume tomorrow CODE STATUS: Full code Admission and Anticipated Discharge Date Admission Date: March 26, 2022 Subjective Patient seen and examined at bedside as a follow-up of [place] with RVR status post pacer and ablation, likely TIA on 04/04/2022 after ablation, hyponatremia and weakness. In the morning, patient was lying in bed, on room air, NAD, denied any acute event overnight, was n.p.o. for ablation today, had not have any bowel movement since , asking for stool softener, denied any chest pain, reports decreasing appetite, denies any fever or headache or dizziness. In the afternoon, after ablation, patient was a stroke alert, per RN patient had right-sided facial droop, dysarthria, right-sided weakness. At bedside exam, patient was on room air and vitally stable, her facial droop was getting better, her right-sided extremity weakness has resolved, patient was still having dysarthria. Patient denied any headache or dizziness or chest pain. Stat labs and imagings were done, given 200 Mg aspirin AL, speech eval/patient failed, consulted neurology, communicated to cardiology, labs and imaging reviewed. Physical Exam Physical Exam: GENERAL: Alert and oriented x3. NAD, on RA. appears ill/frail/weak. HEENT: No pallor, no icterus. Pupils equal, round and reactive to light. Oral mucosa moist. NECK: No JVD, no neck masses. HEART: S1 and S2 heard. Regular rate and rhythm. No murmur, no gallop. RESPIRATORY SYSTEM: Normal AP diameter. No accessory muscle use. No wheezing, no crackles. ABDOMEN: Soft, bowel sounds present, nontender, no distention. Rt face droop minimal, intact eye closure and frowning. Dysarthia + CENTRAL NERVOUS SYSTEM: Obeys simple commands. Moves extremities. EXTREMITIES: 1-2+ BLE edema, no erythema seen. No sensory loss or weakness noted. Results & Data Results & Data ([facility] [place]) Vital Signs (Past 12 Hours) Vital Signs Temp Pulse Pulse Pulse Resp BP Pulse Ox 04/04/22 16:55 90 19 118/69 94 04/04/22 16:25 85 18 122/79 95 04/04/22 15:55 90 17 128/80 95 04/04/22 15:25 89 19 117/81 92 04/04/22 15:00 89 04/04/22 14:55 88 18 119/84 94 04/04/22 14:40 36.3 C L 90 17 124/86 94 04/04/22 14:25 36.3 C L 89 17 129/88 95 04/04/22 14:10 36.3 C L 89 17 129/88 95 04/04/22 14:14 89 18 128/88 95 04/04/22 14:00 90 18 137/92 93 04/04/22 11:47 150 H 115/89 04/04/22 11:07 36.3 C L 77 20 113/79 94 04/04/22 08:29 04/04/22 07:00 138 H 04/04/22 07:25 36.3 C L 96 H 20 112/77 93 O2 Del Method 04/04/22 16:55 Room Air 04/04/22 16:25 Room Air 04/04/22 15:55 Room Air 04/04/22 15:25 Room Air 04/04/22 15:00 04/04/22 14:55 Room Air 04/04/22 14:40 Room Air 04/04/22 14:25 Room Air 04/04/22 14:10 Room Air 04/04/22 14:14 Room Air 04/04/22 14:00 Room Air 04/04/22 11:47 04/04/22 11:07 Room Air 04/04/22 08:29 Room Air 04/04/22 07:00 04/04/22 07:25 Room Air
--- NOTE | 2022-04-04 18:31 | Electrocardiogram Report ---
Test Reason : Blood Pressure : / mmHG Vent. Rate : 089 BPM Atrial Rate : 091 BPM P-R Int : 000 ms QRS Dur : 144 ms QT Int : 414 ms P-R-T Axes : 000 148 102 degrees QTc Int : 503 ms Ventricular-paced rhythm Abnormal ECG When compared with ECG of 01-APR-2022 23:48, Electronic ventricular pacemaker has replaced Atrial fibrillation Confirmed by Miguel Lopes ([id number]) on 04/04/2022 6:31:26 PM Referred By: REFERRED SELF Confirmed By:Sina Lopes
[2022-04-04] MEDS: MELATONIN 3 MG TAB PO SCH (20:34)
[2022-04-04] MEDS: FUROSEMIDE INJ 20 MG/2 ML VIAL IV SCH (20:35)
[2022-04-05] MEDS: SODIUM CHLORIDE 0.9% 500 ML IV SCH ×2 (02:29→08:04)
[2022-04-05 02:58] LABS: Hematocrit (blood only) 43.5 % (34.1-44.9); Hemoglobin 14.8 g/dl (12.0-16.0); Mean Corpuscular Hemoglobin 30.1 pg (25.0-34.0); Mean Corpuscular Volume 88.6 fL (80.0-100.0); Mean Platelet Volume 10.3 fL (9.4-12.3); Platelet Count 129 K/uL (130-400); RDW Coefficient of Variation 17.1 % (11.5-14.5); RDW Standard Deviation 52.5 fL (36.4-46.3); Red Blood Count 4.91 M/uL (3.93-5.22); White Blood Count 7.77 K/ul (4.8-10.8)
[2022-04-05 03:02] LABS: BUN Creatinine Ratio 39.4 (10-20); Calcium 9.6 mg/dl (8.5-10.1); Chol HDL Ratio 18.8 (0-5); Creatinine Clr Calc Pharmacy 88.9 ml/min; Est GFR (African American) 99.5 ml/min; Est GFR (Non-African American) 85.8 ml/min; Magnesium 1.8 mg/dl (1.7-2.4); Phosphorus 3.5 mg/dl (2.5-4.9); Potassium 4.6 mmol/L (3.5-5.1)
[2022-04-05 03:09] LABS: Troponin I High Sensitivity 136.2 pg/ml (0-14)
[2022-04-05] MEDS ORDERED: AMIODARONE 200 MG TAB PO SCH (08:00)
[2022-04-05] MEDS: FUROSEMIDE INJ 20 MG/2 ML VIAL IV SCH ×2 (08:00→20:20)
[2022-04-05] MEDS: LIDOCAINE 5% 1 PATCH TD SCH (08:03)
[2022-04-05] MEDS: PARoxetine HCL 10 MG TAB PO SCH (08:03)
[2022-04-05] MEDS: UREA (UREA-NA) 15 GM PACK PO SCH (08:03)
[2022-04-05] MEDS: MULTIVITAMIN TAB PO SCH (08:03)
--- NOTE | 2022-04-05 09:28 | Nephrology Progress Note ---
Date of Service April 05, 2022 Assessment & Plan Admission and Anticipated Discharge Date Admission Date: March 26, 2022 Subjective Assessment & Plan (1) Acute hyponatremia: Plan: Hyponatremia Hypervolumic hyponatremia with likely background SIADH patient does not like urea and has refused taking it. will take out of the list. na did improve a bit after some iv lasix given yesterday. CXR shows Pulm edema so no need to give iv fluid even if she is NPO. lasix 40 iv bid to continue--hold if SBP less than 100 No salt tablets. Subjective Got Pacemaker. Got AV Ablation yesterday and then few hrs later had Stroke like Symptoms. Now NPO as she failed Swallow eval. Has pedal edema Review of Systems Review of Systems: All systems reviewed & are unremarkable except as noted in HPI & below Physical Exam Physical Exam: GENERAL: Elderly white female who is in mild respiratory distress. HEENT: Mucous membrane is dry. NECK: Supple, difficult to asses JVD due to body habitus. CHEST:+Diminished lung sounds and + crackles (Minimal crackles at the bases CARDIOVASCULAR: S1 and S2, regular. ABDOMEN: Soft, nontender. EXTREMITIES:1+ bilateral pedal edema. NEUROLOGICALLY: Awake, alert, oriented x3, normal speech. Moving all 4 extremities Results & Data ([facility]) Vital Signs (Past 12 Hours) Vital Signs Temp Pulse Pulse Pulse Resp BP Pulse Ox 04/05/22 08:00 36.8 C 74 18 110/61 96 04/05/22 03:28 36.4 C L 86 18 93/65 L 94 04/04/22 23:23 36.3 C L 89 18 112/77 95 04/04/22 22:48 89 O2 Del Method 04/05/22 08:00 04/05/22 03:28 Room Air 04/04/22 23:23 Room Air 04/04/22 22:48
--- NOTE | 2022-04-05 11:25 | Neurology Consultation ---
Date of Consultation April 05, 2022 Assessment & Plan (1) Stroke-like symptoms: Plan I suspect this patient had a small stroke. She has moderate proximal right upper extremity weakness and mild dysarthria this morning. Localization would be consistent with either the left cerebral hemisphere or brainstem. No obvious acute process on yesterday's CT of the head. If possible, I would like this patient to have a noncontrast brain MRI completed. If a brain MRI cannot be completed, however, due to recent pacer placement, would then recommend a repeat noncontrast CT of the head today. I would also recommend a CT angiogram of the head and neck. Patient's lipid panel within normal limits, would not require statin at this time. I do not object to restarting Eliquis when appropriate from a cardiac standpoint. Patient's blood pressure does tend to run low normal, may continue with current antihypertensive and cardiovascular medications. Again, she does have some focal deficits on examination this morning that are potentially consistent with a small stroke. If she is unable to have a brain MRI, would recommend a follow-up CT of the head including a CT angiogram of the head and neck. I will advise further pending completion of these tests. History of Present Illness Reason for Consultation: TIA? Requesting Physician: Dr. Carpenter Attending Physician: Woodrow Carpenter MD History of Present Illness The patient is a 76-year-old female who experienced an episode of right-sided weakness, face and arm, associated slurred speech, occurring acutely yesterday, after undergoing AV node ablation. Her symptoms have modestly improved although she continues to complain of some heaviness or weakness for the right upper limb, especially proximally, as well as some mild slurred speech. She denies any vision loss, vertigo, double vision, headache, or sensory loss at this time. A CT of the head completed yesterday was negative for hemorrhage or acute process. I did independently review the images. There is generalized atrophy, more so posteriorly for the cerebral hemispheres. The posterior fossa is not well seen due to artifact. Past medical history notable for atrial fibrillation with rapid ventricular response, has been on Eliquis and a beta-vilma. Cardioversion on March 30, pacer placement April 03, AV node ablation on April 04. History also notable for hyponatremia, seems to be chronic issue. Allergies Allergy/AdvReac Type Severity Reaction Status Date / Time No Known Allergies Allergy Verified 03/26/22 17:46 Home Medications Medication Instructions Recorded Confirmed Type multivitamin (Multiple Vitamins 1 tab PO QAM 10/15/18 03/26/22 History tablet) apixaban 5 mg tablet 5 mg PO BID 01/29/19 03/26/22 History metoprolol succinate 50 mg 50 mg PO QAM 01/29/19 03/26/22 History tablet,extended release 24 hr losartan 25 mg tablet 25 mg PO DAILY 03/26/22 03/26/22 History melatonin 3 mg tablet 3 mg PO HS 03/26/22 03/26/22 History sulfamethoxazole 800 1 tab PO AMHS 03/26/22 03/26/22 History mg-trimethoprim 160 mg tablet Patient History Medical History Atrial fibrillation on eliquis follows with Kip Alyson 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 (01/27/15) "Abnormal left breast mammogram Status post ultrasound-guided core needle biopsy 01/25/2015 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, progesterone receptor negative, HER-2/yury negative Status post lumpectomy and sentinel lymph node biopsy 03/03/2015 Pathologic stage [id number] Status post reexcision 03/23/2015 due to positive margin no residual tumor Status post completion of radiation therapy 06/10/2015 received 6120 cGy " On 07/09/15 10:05 Siria Dunham wrote "Abnormal left breast mammogram Status post ultrasound-guided core needle biopsy 01/25/2015 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, progesterone receptor negative, HER-2/yury negative Status post lumpectomy and sentinel lymph node biopsy 03/03/2015 Pathologic stage [id number] Status post reexcision 03/23/2015 due to positive margin no residual tumor " On 07/09/15 10:05 Siria Dunham wrote "Abnormal left breast mammogram Status post ultrasound-guided core needle biopsy 01/25/2015 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, progesterone receptor negative, HER-2/yury negative Status post lumpectomy and sentinel lymph node biopsy 03/03/2015 Pathologic stage [id number] Status post reexcision 03/23/2015 due to positive margin no residual tumor " On 04/07/15 12:14 Siria Dunham wrote "Abnormal left breast mammogram Status post ultrasound-guided core needle biopsy 01/25/2015 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, progesterone receptor negative, HER-2/yury negative Status post lumpectomy and sentinel lymph node biopsy 03/03/2015 Pathologic stage [id number] Status post reexcision 03/23/2015 due to positive margin no residual tumor" On 04/07/15 12:12 Siria Dunham wrote "Abnormal left breast mammogram Status post ultrasound-guided core needle biopsy 01/25/2015 Invasive ductal carcinoma Jana receptor negative, progesterone receptor negative, HER-2/yury negative Status post lumpectomy and sentinel lymph node biopsy 03/03/2015 Pathologic stage [id number] Status post reexcision 03/23/2015 due to positive margin no residual tumor" HTN (hypertension) Morbid obesity with BMI of 40.0-44.9, adult On anticoagulant therapy eliquis daily Surgical History History of breast surgery 03/2015 reexcision of lump of left breast History of colonoscopy History of lumpectomy of left breast 02/2015 with sentinel lymph node biopsy History of needle biopsy 01/2018 left breast--malignant History of tooth extraction History of total hysterectomy with bilateral salpingo-oophorectomy (BSO) History of wisdom tooth extraction Family History Mother Family hx of colon cancer Other No family history of adverse response to anesthesia No pertinent family history Social History Smoking Status: Never smoker Second Hand Exposure: Yes ( smoked); Hx Alcohol Use: No Hx Substance Use: No Preferred Language: Bengali Communication Ability: Effective [employer] Person Required: No Beliefs That Will Affect Care: [facility] Current Living Situation: Spouse Other Information That Helps Us Care for You: No Feels Safe at Home: Yes Safety Concerns: Feels Safe At This Time Assistive Devices: None Review of Systems Constitutional: no fever and no chills Eyes: no blind spots and no diplopia Ear, Nose, Mouth, Throat: no hearing loss Respiratory: no cough and no dyspnea Cardiovascular: + palpitations Gastrointestinal: no nausea and no vomiting Genitourinary: no dysuria Musculoskeletal: no myalgia Integumentary: no rash and no lesions Neurologic: as per Subjective / HPI Psychiatric: no depression and no anxiety Hematologic / Lymphatic: no easy bleeding and no easy bruising Exam (Neuro) Constitutional: well developed and well nourished; no acute distress Eyes: normal visual best by confrontation, PERRL, normal accommodation and EOM intact bilaterally; no fundoscopic abnormality, no nystagmus and no papilledema Cardiovascular: Vessels: normal carotid upstroke; no carotid bruit Neurologic: Oriented to:: Person, Place and Time Memory: Short Term Intact and Remote Intact Attention: Span Intact and Concentration Intact Language: Naming Objects and Repeating Phrases Speech Fluency: Dysarthria (Mild dysarthria noted) Speech Aphasia: negative Aphasia Fund of Knowledge: Current Events, Past History and Vocabulary Cranial Nerves: Normal II (Visual best full to confrontation, visual acuity normal), III, IV, (Pupils equal round reactive to light and accommodation, eye movements normal), V (Facial sensation intact), VII (There is no facial droop or weakness), VIII (Hearing intact), IX, X (Palate elevates to midline), XI (Shoulder shrug intact) and XII (Tongue protrudes to midline) Motor Strength: Normal Lower Extremities and Pronator Drift Laterality: Right; negative Normal Upper Extremities (There is moderate proximal weakness for the right upper extremity.) Motor Tone: Normal Lower Extremities and Normal Upper Extremities Muscle Bulk/Involuntary Movements: No Involuntary Movements; negative Muscle Atrophy Sensation: Light Touch Intact, Pain/Temperature Intact, Vibration Intact and Proprioception Intact Coordination: Normal and Finger-Nose Abnormal Laterality: Right; negative Limited Balance, Dysdiadochokinesia or Heel-Wynne Abnormal Deep Tendon Reflexes: Rt Triceps: 2+, Lt Triceps: 2+, Rt Biceps: 2+, Lt Biceps: 2+, Rt Brachioradialis: 2+, Lt Brachioradialis: 2+, Rt Patellar: 2+, Lt Patellar: 2+, Rt Ankle: 1+ and Lt Ankle: 1+ Special Tests: negative Babinski Present Details: Gait cannot be tested in the context of patient's current medical/neurological status. Results & Data ([facility]) Vital Signs (Past 12 Hours) Vital Signs Temp Pulse Pulse Resp BP Pulse Ox O2 Del Method 04/05/22 08:00 36.8 C 74 18 110/61 96 04/05/22 03:28 36.4 C L 86 18 93/65 L 94 Room Air 04/04/22 23:23 36.3 C L 89 18 112/77 95 Room Air Laboratory Results WBC 7.77, hemoglobin 14.8, hematocrit 43.5, platelet count 129, sodium 129, potassium 4.6, BUN 26, creatinine 0.66, glucose 105, magnesium 1.8, AST 31, ALT 33, troponin 136.2, triglycerides 138, cholesterol 94, LDL 61, VLDL 28, HDL [address] of the head negative for hemorrhage or acute process, generalized atrophy, as described in the HPI, I independently reviewed the images. Electrocardiogram reveals a ventricular paced rhythm, 89 bpm. Coding Level of Care Code 82658 Initial Inpt Care Lvl 3 Diagnoses Stroke-like symptoms R29.90
--- NOTE | 2022-04-05 13:46 | Cardiology Progress Note ---
Date of Service April 05, 2022 Assessment & Plan (1) Persistent atrial fibrillation: (2) Atrial fibrillation with RVR: (3) Cardiomyopathy: (4) Aortic stenosis: (5) HTN (hypertension): (6) Heart failure with mid-range ejection fraction: (7) Elevated transaminase level: Plan ASSESSMENT/PLAN: 1. Persistent atrial fibrillation with rapid ventricular response: Poorly controlled with medical therapy. Patient underwent successful AV node ablation and implantation of a biventricular pacemaker. Normally functioning device. No evidence of conducted atrial fibrillation on examination today. 2. Cardiomyopathy: Mildly reduced LV systolic function. May be due to persistent tachycardia. On metoprolol succinate and losartan. 3. Aortic stenosis: Mild. Follow over time. 4. Hypertension: Blood pressure well controlled 5. Hyponatremia: Has been managed by nephrology. Remains hyponatremic. 6. Chronic heart failure with midrange EF: Continues on diuretics. Hopefully with improved rate control we will see more effective diuresis. 7. Elevated transaminase levels: Resolved. Unfortunately, patient appears to have had a cerebrovascular accident yesterday. Her neurologic function has improved today. There was a recommendation for an MRI but unfortunately, given the recent device implant this will need to be deferred for at least [address] scan is certainly safe. I would resume Eliquis at her usual dose tomorrow morning She can continue on metoprolol and losartan. If low blood pressure is a concern her metoprolol could be reduced to 25 mg daily. Admission and Anticipated Discharge Date Admission Date: March 26, 2022 Subjective This morning patient claimed he feeling well. She has improved movement of the right arm. She is anxious to start eating and drinking again. No pain at the device implant site in the left upper pectoral area. No pain at the right groin access site. Review of Systems Review of Systems: Per HPI Physical Exam Physical Exam: She is alert and oriented x3. Mood affect appear normal. She answered all questions appropriately. HEENT: Sclerae are anicteric. Pupils are equal and reactive to light and accommodation. Extraocular movements were intact. Neuro: Very slight right facial droop and tongue deviation to the right. Lungs: Lungs are clear to auscultation bilaterally. There are no rales wheezes or rhonchi. She has normal respiratory effort without use of accessory muscles. There is normal pulmonary excursion. Cardiac: The rhythm was regular. Chest: Evaluation the device implant site in left upper pectoral area did not reveal any evidence of hematoma, swelling or erythema. Extremities: Improved movement of the right arm. No evidence of hematoma at the right groin access site Skin: There are no rashes noted on examination today. Results & Data ([facility]) Vital Signs (Past 12 Hours) Vital Signs Temp Pulse Pulse Resp BP Pulse Ox Pulse Ox 04/05/22 12:58 95 04/05/22 11:57 36.7 C 79 18 125/71 97 04/05/22 08:00 36.8 C 74 18 110/61 96 04/05/22 03:28 36.4 C L 86 18 93/65 L 94 O2 Del Method O2 Flow Rate 04/05/22 12:58 0 04/05/22 11:57 04/05/22 08:00 04/05/22 03:28 Room Air Laboratory Results Abnormal Lab Results 04/04/22 04/04/22 04/04/22 15:57 15:57 20:59 WBC 9.37 RBC 5.08 Hgb 15.3 Hct 45.3 H MCV 89.2 MCH 30.1 MCHC 33.8 RDW Std Deviation 52.5 H RDW Coeff of Carlita 17.0 H Plt Count 141 MPV 10.5 Sodium 126 L Potassium 4.9 Chloride 93 L Carbon Dioxide 24 Anion Gap 9 BUN 27 H Creatinine 0.60 Est Cr Clr Drug Dosing 97.8 Est GFR ( Amer) 102.6 Est GFR (Non-Af Amer) 88.5 BUN/Creatinine Ratio 45.0 H Glucose 125 H Calcium 10.0 Phosphorus 3.5 Magnesium 1.9 Total Bilirubin 2.6 H AST 31 ALT 33 Alkaline Phosphatase 69 Troponin I High Sens 146.2 H* D 116.2 H* D Total Protein 5.9 L Albumin 3.0 L Globulin 2.9 Albumin/Globulin Ratio 1.0 Triglycerides Cholesterol LDL Cholesterol, Calc VLDL Cholesterol, Calc HDL Cholesterol Cholesterol/HDL Ratio 04/05/22 04/05/22 02:14 02:14 WBC 7.77 RBC 4.91 Hgb 14.8 Hct 43.5 MCV 88.6 MCH 30.1 MCHC 34.0 RDW Std Deviation 52.5 H RDW Coeff of Carlita 17.1 H Plt Count 129 L MPV 10.3 Sodium 129 L Potassium 4.6 Chloride 94 L Carbon Dioxide 26 Anion Gap 9 BUN 26 H Creatinine 0.66 Est Cr Clr Drug Dosing 88.9 Est GFR ( Amer) 99.5 Est GFR (Non-Af Amer) 85.8 BUN/Creatinine Ratio 39.4 H Glucose 105 H Calcium 9.6 Phosphorus 3.5 Magnesium 1.8 Total Bilirubin AST ALT Alkaline Phosphatase Troponin I High Sens 136.2 H* Total Protein Albumin Globulin Albumin/Globulin Ratio Triglycerides 138 Cholesterol 94 LDL Cholesterol, Calc 61 VLDL Cholesterol, Calc 28 HDL Cholesterol 5 Cholesterol/HDL Ratio 18.8 H PG Care Time/CCT Total # of Minutes Spent Total Time Spent with Patient: Total time spent is greater than 50% in coordination of care (as documented) at patient's floor/unit and/or counseling patient: Coding Level of Care Code 24701 Subseq Hosp Care Lvl 2 Diagnoses Persistent atrial fibrillation I48.19 Atrial fibrillation with RVR I48.91 Cardiomyopathy I42.9 Aortic stenosis I35.0 HTN (hypertension) I10 Heart failure with mid-range ejection fraction I50.22 Elevated transaminase level R74.01
--- NOTE | 2022-04-05 14:03 | Hospitalist Progress Note ---
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 She is being managed for the following: A. fib with RVR: History of such, on beta-vilma and Eliquis. Presented with 1 week history of weakness and shortness of breath on exertion. 03/27 echo: EF 45 to 50%. Mild global hypokinesis. Mild concentric LVH. A. fib with RVR. Status post IV diltiazem and IV beta-vilma. Could not tolerate IV Cardizem drip due to low blood pressure, heart rate was not responding even after digoxin. Heart rate remained elevated despite amiodarone. Status post cardioversion and reversal to sinus rhythm. Went back to A. fib with RVR with borderline low blood pressure. Cardiology on board, 03/30 cardioversion, 04/03 pacer with ventricular lead, 04/04 AV node ablation. Post ablation EKG with paced rhythm, patient with no chest pain. Continue to monitor over telemetry. Likely eliquis to be resumed in AM per cardio. Hyponatremia: Admitting sodium of 121, as low as 119 earlier in admission. Likely secondary to poor p.o. intake. Nephrology on board, managing sodium level, slightly improving. Patient does not like urea and has refused it. Patient is still with poor appetite. Artificial Breeding Technician consult. Na improving. Likely TIA: Post AV node ablation on 04/04/2022, patient was a stroke alert, apparently had right-sided facial droop with dysarthria and right-sided extremity weakness. 04/04 CT head was negative for any bleed. Received 300 Mg UT aspirin. Speech evaluated, pt back on diet. Facial droop and Rt Ex weakness not present. Mild dysarthria present. improving. Neurologically getting better. Neurology evaluated, CT head, CTA head and neck pending. c/w neurochecks. Weakness: Multifactorial complicated with poor appetite. PT/OT when able. Will likely need placement. Pulmonary edema: Likely has acute diastolic heart failure secondary to A. fib with RVR. CXR suggestive of congestion. Cautious use of IV fluid as patient is n.p.o. Patient on Lasix per nephrology for hyponatremia management. Patient maintaining on room air. Carbuncle/furuncle of trunk:: Status post antibiotic. Other chronic medical conditions: HTN --> continue home meds as and when able. DVT prophylaxis: Eliquis on hold, will likely resume tomorrow CODE STATUS: Full code PT/OT, CM to assist w/ DC planning. Expect dc in 1-2 days. Admission and Anticipated Discharge Date Admission Date: March 26, 2022 Subjective Patient seen and examined at bedside as a follow-up of [place] with RVR status post pacer and ablation, likely TIA on 04/04/2022 after ablation, hyponatremia and weakness. Pt was sitting up in chair, on room air, NAD, denied any acute event overnight, was npo after tia yesterday, speech cleared, back on diet, denied any chest pain, reports decreasing appetite, denies any fever or headache or dizziness. Updated pt's 2 grand dtrs at bedside, answered all their questions. Physical Exam Physical Exam: GENERAL: Alert and oriented x3. NAD, on RA. appears ill/frail/weak. HEENT: No pallor, no icterus. Pupils equal, round and reactive to light. Oral mucosa moist. NECK: No JVD, no neck masses. HEART: S1 and S2 heard. Regular rate and rhythm. No murmur, no gallop. RESPIRATORY SYSTEM: Normal AP diameter. No accessory muscle use. No wheezing, no crackles. ABDOMEN: Soft, bowel sounds present, nontender, no distention. No face droop appreciated. intact eye closure and frowning. Dysarthia + but improving. CENTRAL NERVOUS SYSTEM: Obeys simple commands. Moves extremities. EXTREMITIES: 1+ BLE edema, no erythema seen. No sensory loss or weakness noted. Results & Data Results & Data ([facility]) Vital Signs (Past 12 Hours) Vital Signs Temp Pulse Pulse Resp BP Pulse Ox Pulse Ox 04/05/22 12:58 95 04/05/22 11:57 36.7 C 79 18 125/71 97 04/05/22 08:00 36.8 C 74 18 110/61 96 04/05/22 03:28 36.4 C L 86 18 93/65 L 94 O2 Del Method O2 Flow Rate 04/05/22 12:58 0 04/05/22 11:57 04/05/22 08:00 04/05/22 03:28 Room Air
[2022-04-05] MEDS ORDERED: OPTIRAY 320 500ml IV ONE (15:17)
--- NOTE | 2022-04-05 15:54 | CT Scan Report ---
HEAD CTA HISTORY: stroke, right upper extremity weak, dysarthria TECHNIQUE: Multiaxial CT images of the head were performed both before and after the intravenous admi nistration of contrast to evaluate the major cerebral vessels. Maximum intensity projection images we re also obtained. A dose lowering technique was utilized adhering to the principles of ALARA. COMPARISON: Head CT 04/04/2022. FINDINGS: There is chronic deformity of the right temporomandibular joint, unchanged. The paranasal s inuses and mastoid air cells are clear. The calvarium and skull base are intact. There is an old smal l left cerebellar infarct again noted. The ventricles and sulci demonstrate mild age-related involuti onal changes. Microvascular ischemic changes are again noted. There is no mass, hematoma, midline fatimah ft, or acute infarct. Visualized intracranial internal carotid arteries, distal vertebral arteries, and basilar artery are widely patent. There is no significant stenosis, occlusion, or aneurysm seen within the bilateral AC As, MCAs, or black off worker. There is a persistent right posterior circulation. The major dural venous si nuses are patent. IMPRESSION: 1. No acute infarct or intracranial hemorrhage. 2. No significant stenosis, occlusion, or aneurysm within the levelock of [place]. ACT 112: Negative or not required by law. Electronically signed by: German Lemon M.D. 04/05/2022 3:53 PM
[2022-04-05] MEDS: POLYETHYLENE (MIRALAX) 17 GM PACK PO SCH (16:03)
--- NOTE | 2022-04-05 16:43 | CT Scan Report ---
CT ANGIOGRAPHY OF THE NECK WITH CONTRAST CLINICAL HISTORY: Right upper extremity weakness. Stroke. COMPARISON STUDY: No previous studies for comparison. Technique: CT angiography of the carotid and vertebral arteries was obtained using [employer] and 3D rec onstruction on an independent workstation. NASCET criteria was utilized. Automated exposure control was utilized for the study. A dose lowering technique was utilized adhering to the principles of ALA RA. CT DOSE: 1828.08 mGy.cm Findings: A moderate to large right pleural effusion is partially imaged. Pacer leads are partially i katie. There is gas within the left chest wall from recent pacer insertion. The bilateral common patel tid, cervical internal carotid and vertebral arteries are patent. There is no stenosis within these v essels. There is no dissection. There is moderate plaque within the right carotid bifurcation without stenosis. There is mild plaque within the left carotid bifurcation. There is pathologic bilateral ce rvical lymphadenopathy, greater on the right. Index right level 2 node measures 3.2 x 2.6 cm. Index l eft level 2 node measures 1.8 x 1.4 cm. There is asymmetric fullness of the right palatine tonsils. E piglottis is normal. No suspicious lesions within the bony thorax. Old lacunar infarct within left ce rebellar hemisphere is incidentally noted. IMPRESSION: 1. No stenosis or dissection within the bilateral common carotid, cervical internal carotid or verteb ral arteries. 2. Pathologic bilateral cervical lymphadenopathy, greater on the right. This is consistent with a patt plastic process and favors metastatic disease although lymphoma could appear similar. Potential prima ry neoplasm within the right palatine tonsils. These nodes would be amenable to ultrasound-guided bio psy. 3. Moderate to large right pleural effusion, partially imaged on this exam. ACT 112: Positive. There are findings on this exam that require communication between the performing entity and the patient following Patient Test Result Information Act ([place] Act 112) guidelines. Electronically signed by: Deuce Wray M.D. 04/05/2022 4:42 PM
[2022-04-05] MEDS: MELATONIN 3 MG TAB PO SCH (20:20)
[2022-04-06] MEDS ORDERED: ALBUMIN 25% 12.5 GM/50 ML VIAL IV ONE (00:27)
[2022-04-06] MEDS: MAGNESIUM SULFATE / D5W 1 GM/100 ML BAG IV SCH ×2 (00:40→02:20)
--- NOTE | 2022-04-06 07:35 | CT Scan Report ---
CT OF THE HEAD WITHOUT CONTRAST CLINICAL HISTORY: Worsening facial droop. COMPARISON STUDY: Head CT and CTA of the head performed earlier today. CT DOSE: 1768.17 mGy.cm TECHNIQUE: Helical axial images of the head were obtained without IV contrast. Automated exposure con trol was utilized for the study. A dose lowering technique was utilized adhering to the principles o f ALARA. FINDINGS: This study is mildly compromised by motion artifact. Intravascular contrast from recent con trast-enhanced CT is incidentally noted. Ventricular system is stable. Basal cisterns are patent. Whi te matter hypodensities are unchanged. No acute intracranial hemorrhage, midline shift or mass effect is present. Old infarct within left cerebellar hemisphere is again noted. White matter hypodensities favor small vessel disease. There are no findings to suggest acute dural sinus thrombosis or acute t erritorial infarct. Right cervical lymphadenopathy is better depicted on CTA of the neck. IMPRESSION: 1. No acute intracranial findings. No change in appearance of the brain. Exam mildly compromised by m otion artifact. 2. Right cervical lymphadenopathy better depicted on CTA of the neck. ACT 112: Negative or not required by law. Electronically signed by: Deuce Wray M.D. 04/06/2022 7:33 AM
[2022-04-06 08:02] LABS: Anion Gap 9 (3-11); BUN Creatinine Ratio 45.6 (10-20); Blood Urea Nitrogen 31 mg/dl (6-23); Calcium 10.8 mg/dl (8.5-10.1); Carbon Dioxide 28 mmol/L (21-32); Chloride 91 mmol/L (98-107); Creatinine Clr Calc Pharmacy 86.1 ml/min; Est GFR (African American) 98.5 ml/min; Glucose 133 mg/dl (70-99(Fasting)); Magnesium 2.4 mg/dl (1.7-2.4); Phosphorus 3.8 mg/dl (2.5-4.9); Sodium 128 mmol/L (136-145)
[2022-04-06] MEDS: FUROSEMIDE INJ 20 MG/2 ML VIAL IV SCH (08:33)
[2022-04-06] MEDS: LIDOCAINE 5% 1 PATCH TD SCH (08:33)
--- NOTE | 2022-04-06 11:07 | XRay Report ---
XR chest 1V portable HISTORY: Right pleural effusion. Follow-up. COMPARISON: Chest 04/04/2022. FINDINGS: No pneumothorax. The cardiac silhouette remains mildly enlarged. There is a left-sided pace maker again noted. Moderate right and small left pleural effusions remain unchanged. There is mild ce ntral pulmonary vascular congestion without overt edema. Bibasilar densities persist and may represen t atelectasis from the pleural effusions. IMPRESSION: 1. No change in the moderate right and small left pleural effusions. 2. Cardiomegaly and mild congestive change persists. ACT 112: Negative or not required by law. Electronically signed by: German Lemon M.D. 04/06/2022 11:06 AM
--- NOTE | 2022-04-06 12:35 | Neurology Progress Note ---
Date of Service April 06, 2022 Assessment & Plan (1) Stroke-like symptoms: (2) Cervical lymphadenopathy: Plan Strokelike episode after undergoing AV node ablation on April 04. She does have mild proximal right upper extremity weakness, but otherwise does not have other associated neurologic signs or symptoms. A small stroke remains possible although she is unable to have a brain MRI. CT angiography of the head and neck did reveal pathologic cervical lymphadenopathy greater on the right. She does have several palpable nonpainful cervical lymph nodes on examination. I did inform the patient and her spouse of this imaging and examination finding and agree with the recommendation for ultrasound-guided biopsy with concern for a possible right palatine tonsil neoplasm. Would recommend ENT evaluation regarding suspected neoplasm as above. May need to hold off on starting Eliquis in anticipation of above biopsy. Admission and Anticipated Discharge Date Admission Date: March 26, 2022 Subjective Follow-up for suspected stroke The patient continues to report some mild right upper extremity weakness, primarily proximal, reports that her slurred speech seems to have resolved. A follow-up CT of the head was negative for hemorrhage, acute process, or evolving infarct. 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 A CTA of the head was unremarkable. A CTA of the neck was negative for vascular lesion although did reveal pathologic bilateral cervical lymphadenopathy, greater on the right as well as asymmetric fullness of the right palate teen tonsil. Finding potentially consistent with metastatic disease, possible primary neoplasm within the right palate teen tonsil. Suggestion was for ultrasound-guided biopsy. Review of Systems Eyes: no blind spots and no diplopia Neurologic: as per Subjective / HPI Results & Data ([facility]) Vital Signs (Past 12 Hours) Vital Signs Temp Pulse Pulse Resp BP Pulse Ox O2 Del Method 04/06/22 08:00 36.5 C 89 18 119/74 93 Room Air 04/06/22 04:10 36.4 C L 87 18 122/78 91 Room Air Laboratory Results Sodium 128, potassium 4.3, BUN 31, creatinine 0.68, glucose 133, magnesium 2.[address] of the head, CT angiogram of the head and neck are as described above, I independently reviewed these images as well as the radiologist's interpretation of these tests. Exam (Neuro) Neurologic: Oriented to:: Person, Place and Time Attention: Span Intact and Concentration Intact Speech Fluency: negative Dysarthria or Dysfluency Fund of Knowledge: Past History and Vocabulary Cranial Nerves: Normal II, III, IV, , V, VII, VIII, IX, X, XI and XII Motor Strength: Normal Lower Extremities; negative Normal Upper Extremities (Mild proximal weakness for the right upper extremity noted.) Muscle Bulk/Involuntary Movements: No Involuntary Movements Coordination: Finger-Nose Abnormal Laterality: Right; negative Heel-Wynne Abnormal Lymphatic: + cervical lymphadenopathy Coding Level of Care Code 69928 Subseq Hosp Care Lvl 2 Diagnoses Stroke-like symptoms R29.90 Cervical lymphadenopathy R59.0
--- NOTE | 2022-04-06 12:51 | Pulmonary Consultation ---
Date of Consultation April 06, 2022 Assessment & Plan (1) Pleural effusion: Plan Impression: 76-year-old female with remote history of breast cancer now with bilateral pleural effusions. These could be transudative related to underlying cardiovascular process but cannot rule out a malignant process. Sampling is warranted. Recommendations: 1. Bilateral pleural effusions, right greater than left. Recommended the patient undergo ultrasound-guided catheter thoracentesis on the right. Additional recommendations will be based on microbiologic, chemical, and cytologic analysis of the pleural fluid. 2. We will perform follow-up chest x-ray post thoracentesis. 3. Would recommend diuresis. 4. The patient's anticoagulation can be resumed post procedure. We will follow-up with results of the pleural fluid studies in the next 24 hours. The above recommendations and plan were discussed with the patient as well as multiple family members at bedside. Questions were answered to the best my ability. They expressed understanding and are in agreement with the plan as out lined History of Present Illness Attending Physician: Woodrow Carpenter MD History of Present Illness Asked by hospitalist to evaluate this patient with pleural effusions. History is obtained from reviewed electronic medical record as well as interview the patient and family members at bedside. The patient is a 76-year-old female who has been hospitalized since 03/26/2022. She initially presented with atrial fibrillation with rapid ventricular response as well as hyponatremia. She was seen by cardiology. Cardioversion was attempted. Eventually the patient was taken to [facility] on 04/03/2022. 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 The patient had a biventricular pacemaker placed. Yesterday the patient had right- sided arm weakness with slurred speech. Stroke alert was called. It was felt that she likely suffered a small stroke. She was already anticoagulated so she was not administered tPA. Her symptoms gradually improved. As part of her work-up she underwent CT angiogram of the neck which demonstrated a left-sided effusion with some adenopathy in the neck. She has a prior history of breast cancer. Pulmonary was consulted for sampling of the pleural fluid. Her anticoagulation the form of Eliquis has been held. She remains on antiplatelet agents. The patient is on room air. She does not report any significant shortness of breath, coughing, or chest tightness. Her intake and output for her hospitalization indicates that she is -1.8 L. Allergies Allergy/AdvReac Type Severity Reaction Status Date / Time No Known Allergies Allergy Verified 03/26/22 17:46 Home Medications Medication Instructions Recorded Confirmed Type multivitamin (Multiple Vitamins 1 tab PO QAM 10/15/18 03/26/22 History tablet) apixaban 5 mg tablet 5 mg PO BID 01/29/19 03/26/22 History metoprolol succinate 50 mg 50 mg PO QAM 01/29/19 03/26/22 History tablet,extended release 24 hr losartan 25 mg tablet 25 mg PO DAILY 03/26/22 03/26/22 History melatonin 3 mg tablet 3 mg PO HS 03/26/22 03/26/22 History sulfamethoxazole 800 1 tab PO AMHS 03/26/22 03/26/22 History mg-trimethoprim 160 mg tablet Patient History Medical History Atrial fibrillation on eliquis follows with [facility] 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 (01/27/15) "Abnormal left breast mammogram Status post ultrasound-guided core needle biopsy 01/25/2015 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, progesterone receptor negative, HER-2/yury negative Status post lumpectomy and sentinel lymph node biopsy 03/03/2015 Pathologic stage [id number] Status post reexcision 03/23/2015 due to positive margin no residual tumor Status post completion of radiation therapy 06/10/2015 received 6120 cGy " On 07/09/15 10:05 Siria Dunham wrote "Abnormal left breast mammogram Status post ultrasound-guided core needle biopsy 01/25/2015 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, progesterone receptor negative, HER-2/yury negativ e Status post lumpectomy and sentinel lymph node biopsy 03/03/2015 Pathologic stage [id number] Status post reexcision 03/23/2015 due to positive margin no residual tumor " On 07/09/15 10:05 Siria Dunham wrote "Abnormal left breast mammogram Status post ultrasound-guided core needle biopsy 01/25/2015 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, progesterone receptor negative, HER-2/yury negative Status post lumpectomy and sentinel lymph node biopsy 03/03/2015 Pathologic stage [id number] Status post reexcision 03/23/2015 due to positive margin no residual tumor " On 04/07/15 12:14 Siria Dunham wrote "Abnormal left breast mammogram Status post ultrasound-guided core needle biopsy 01/25/2015 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, progesterone receptor negative, HER-2/uyry negative Status post lumpectomy and sentinel lymph node biopsy 03/03/2015 Pathologic stage [id number] Status post reexcision 03/23/2015 due to positive margin no residual tumor" On 04/07/15 12:12 Siria Dunham wrote "Abnormal left breast mammogram Status post ultrasound-guided core needle biopsy 01/25/2015 Invasive ductal carcinoma Jana receptor negative, progesterone receptor negative, HER-2/yury negative Status post lumpectomy and sentinel lymph node biopsy 03/03/2015 Pathologic stage [id number] Status post reexcision 03/23/2015 due to positive margin no residual tumor" HTN (hypertension) Morbid obesity with BMI of 40.0-44.9, adult On anticoagulant therapy eliquis daily Surgical History History of breast surgery 03/2015 reexcision of lump of left breast History of colonoscopy History of lumpectomy of left breast 02/2015 with sentinel lymph node biopsy History of needle biopsy 01/2018 left breast--malignant History of tooth extraction History of total hysterectomy with bilateral salpingo-oophorectomy (BSO) History of wisdom tooth extraction Family History Mother Family hx of colon cancer Other No family history of adverse response to anesthesia No pertinent family history Social History Smoking Status: Never smoker Second Hand Exposure: Yes ( smoked); Hx Alcohol Use: No Hx Substance Use: No Preferred Language: Tamazight Communication Ability: Effective Forming Department Supervisor Required: No Beliefs That Will Affect Care: Moravian Current Living Situation: Spouse Other Information That Helps Us Care for You: No Feels Safe at Home: Yes Safety Concerns: Feels Safe At This Time Assistive Devices: None Review of Systems Review of Systems: Please refer to the hospitalist note. No additions or deletions Physical Exam Physical Exam: She is alert and oriented x3. Mood affect appear normal. She answered all questions appropriately. HEENT: Sclerae are anicteric. Pupils are equal and reactive to light and accommodation. Extraocular movements were intact. Neuro: Very slight right facial droop and tongue deviation to the right. Lungs: No increased work of breathing. She is on room air. She has dullness to percussion in the bilateral bases. Exam is somewhat limited due to body habitus. Cardiac: The rhythm was regular. Chest: Evaluation the device implant site in left upper pectoral area did not reveal any evidence of hematoma, swelling or erythema. Extremities: Improved movement of the right arm. No evidence of hematoma at the right groin access site Skin: There are no rashes noted on examination today. Results & Data Results & Data ([facility]) Vital Signs (Past 12 Hours) Vital Signs Temp Pulse Pulse Resp BP Pulse Ox O2 Del Method 04/06/22 08:00 36.5 C 89 18 119/74 93 Room Air 04/06/22 04:10 36.4 C L 87 18 122/78 91 Room Air Critical Care Results & Data Vital Signs (Past 12 Hours) Vital Signs Temp Pulse Pulse Resp BP Pulse Ox O2 Del Method 04/06/22 08:00 36.5 C 89 18 119/74 93 Room Air 04/06/22 04:10 36.4 C L 87 18 122/78 91 Room Air Lab & Micro Results (Past 24 Hours) No Data to Display Na 128 mmol/L (136-145) L 04/06/22 K 4.3 mmol/L (3.5-5.1) 04/06/22 Cl 91 mmol/L (98-107) L 04/06/22 CO2 28 mmol/L (21-32) 04/06/22 Anion Gap 9 (3-11) 04/06/22 BUN 31 mg/dl (6-23) H 04/06/22 Creatinine 0.68 mg/dl (0.6-1.2) 04/06/22 Estimated GFR ( Amer) 98.5 ml/min 04/06/22 Estimated GFR (Non-Af Amer) 85.0 ml/min 04/06/22 BUN/Creatinine Ratio 45.6 (10-20) H 04/06/22 Glu 133 mg/dl (70-99(Fasting)) H 04/06/22 Ca 10.8 mg/dl (8.5-10.1) H 04/06/22 Phosphorus Level 3.8 mg/dl (2.5-4.9) 04/06/22 Mg 2.4 mg/dl (1.7-2.4) 04/06/22 07:13 Calcium Level 10.8 mg/dl (8.5-10.1) H 04/06/22 07:13 Diagnostic Findings (Past 24 Hours) Head CTA 04/05/22 13:51 HEAD CTA HISTORY: stroke, right upper extremity weak, dysarthria TECHNIQUE: Multiaxial CT images of the head were performed both before and after the intravenous administration of contrast to evaluate the major cerebral vessels. Maximum intensity projection images were also obtained. A dose lowering technique was utilized adhering to the principles of ALARA. COMPARISON: Head CT 04/04/2022. FINDINGS: There is chronic deformity of the right temporomandibular joint, unchanged. The paranasal sinuses and mastoid air cells are clear. The calvarium and skull base are intact. There is an old small left cerebellar infarct again noted. The ventricles and sulci demonstrate mild age-related involutional changes. Microvascular ischemic changes are again noted. There is no mass, hematoma, midline shift, or acute infarct. Visualized intracranial internal carotid arteries, distal vertebral arteries, and basilar artery are widely patent. There is no significant stenosis, occlusion, or aneurysm seen within the bilateral ACAs, MCAs, or surgery nurse. There is a persistent right posterior circulation. The major dural venous sinuses are patent. IMPRESSION: 1. No acute infarct or intracranial hemorrhage. 2. No significant stenosis, occlusion, or aneurysm within the [place]. ACT 112: Negative or not required by law. Electronically signed by: German Lemon M.D. 04/05/2022 3:53 PM Neck CTA 04/05/22 13:51 CT ANGIOGRAPHY OF THE NECK WITH CONTRAST CLINICAL HISTORY: Right upper extremity weakness. Stroke. COMPARISON STUDY: No previous studies for comparison. Technique: CT angiography of the carotid and vertebral arteries was obtained using Optir[employer] and 3D reconstruction on an independent workstation. NASCET criteria was utilized. Automated exposure control was utilized for the study. A dose lowering technique was utilized adhering to the principles of ALARA. CT DOSE: 1828.08 mGy.cm Findings: A moderate to large right pleural effusion is partially imaged. Pacer leads are partially imaged. There is gas within the left chest wall from recent pacer insertion. The bilateral common carotid, cervical internal carotid and vertebral arteries are patent. There is no stenosis within these vessels. There is no dissection. There is moderate plaque within the right carotid bifurcation without stenosis. There is mild plaque within the left carotid bifurcation. There is pathologic bilateral cervical lymphadenopathy, greater on the right. Index right level 2 node measures 3.2 x 2.6 cm. Index left level 2 node measures 1.8 x 1.4 cm. There is asymmetric fullness of the right palatine tonsils. Epiglottis is normal. No suspicious lesions within the bony thorax. Old lacunar infarct within left cerebellar hemisphere is incidentally noted. IMPRESSION: 1. No stenosis or dissection within the bilateral common carotid, cervical internal carotid or vertebral arteries. 2. Pathologic bilateral cervical lymphadenopathy, greater on the right. This is consistent with a neoplastic process and favors metastatic disease although lymphoma could appear similar. Potential primary neoplasm within the right p alatine tonsils. These nodes would be amenable to ultrasound-guided biopsy. 3. Moderate to large right pleural effusion, partially imaged on this exam. ACT 112: Positive. There are findings on this exam that require communication between the performing entity and the patient following Patient Test Result Information Act ([place] Act 112) guidelines. Electronically signed by: Deuce Wray M.D. 04/05/2022 4:[address] 04/05/22 22:47 CT OF THE HEAD WITHOUT CONTRAST CLINICAL HISTORY: Worsening facial droop. COMPARISON STUDY: Head CT and CTA of the head performed earlier today. CT DOSE: 1768.17 mGy.cm TECHNIQUE: Helical axial images of the head were obtained without IV contrast. Automated exposure control was utilized for the study. A dose lowering technique was utilized adhering to the principles of ALARA. FINDINGS: This study is mildly compromised by motion artifact. Intravascular contrast from recent contrast-enhanced CT is incidentally noted. Ventricular system is stable. Basal cisterns are patent. White matter hypodensities are unchanged. No acute intracranial hemorrhage, midline shift or mass effect is present. Old infarct within left cerebellar hemisphere is again noted. White matter hypodensities favor small vessel disease. There are no findings to suggest acute dural sinus thrombosis or acute territorial infarct. Right cervical lymphadenopathy is better depicted on CTA of the neck. IMPRESSION: 1. No acute intracranial findings. No change in appearance of the brain. Exam mildly compromised by motion artifact. 2. Right cervical lymphadenopathy better depicted on CTA of the neck. ACT 112: Negative or not required by law. Electronically signed by: Deuce Wray M.D. 04/06/2022 7:33 AM Chest X-Ray 04/06/22 10:21 XR chest 1V portable HISTORY: Right pleural effusion. Follow-up. COMPARISON: Chest 04/04/2022. FINDINGS: No pneumothorax. The cardiac silhouette remains mildly enlarged. There is a left-sided pacemaker again noted. Moderate right and small left pleural effusions remain unchanged. There is mild central pulmonary vascular congestion without overt edema. Bibasilar densities persist and may represent atelectasis from the pleural effusions. IMPRESSION: 1. No change in the moderate right and small left pleural effusions. 2. Cardiomegaly and mild congestive change persists. ACT 112: Negative or not required by law. Electronically signed by: German Lemon M.D. 04/06/2022 11:06 AM I & O Totals 24 Hours 04/05/22 04/06/22 04/07/22 06:59 06:59 06:59 Intake Total 781.333 / 781.333 812.000 / 812.000 Output Total 1375 / 1375 2301 / 2301 Balance -593.667 / -593.667 -1489.000 / -1489.000 Cumulative 03/26/22 15:30 thru 04/06/22 06:36 Intake Total 8682.253 Output Total 37132 Balance -1895.747 RT Ventilator Mngmt (Last Documented) Ventilator Ordered Settings Respiratory Rate 18 04/06/22 08:00 Ventilator - PT Measurements Respiratory Rate 18 PG Care Time/CCT Total # of Minutes Spent Total Time Spent with Patient: Total time spent is greater than 50% in coordination of care (as documented) at patient's floor/unit and/or counseling patient: Coding Level of Care Code 95304 Initial Inpt Care Lvl 3 Diagnoses Pleural effusion J90
--- NOTE | 2022-04-06 12:53 | Procedure Note ---
Procedure Note Date of Service April 06, 2022 Note Procedure: Diagnostic therapeutic ultrasound-guided catheter thoracentesis, right Engraver Tender: Dr. Damion Cat Indication: Pleural effusion Consent: Signed by patient and verified with timeout prior to procedure Anesthesia: 8 mL's 1% lidocaine without epinephrine local. Procedure: Consent was verified and timeout performed. Appropriate imaging studies were reviewed prior to the procedure. Patient was placed in a seated position and limited thoracic ultrasound was performed of the bilateral chest. See separate imaging. A moderate-sized right effusion was noted with some compressive atelectasis. A small left effusion was noted with compressive atelectasis as well. The site appropriate for thoracentesis on the right was marked. The skin was prepped and draped in normal sterile fashion. Lidocaine was used for local analgesia. Fluid was aspirated via the finder needle. A small skin asuncion was made with the scalpel and the catheter over the needle apparatus was advanced over the rib into the pleural space. Using the syringe one-way valve system, a total of 1300 mL's of serous yellow fluid was removed. Procedure was terminated due to patient coughing and some chest pain. The catheter was removed and obse rved to be intact. A sterile dressing was applied. Post procedure chest x-ray was ordered. Post procedure thoracic ultrasound demonstrated small amount of residual fluid. Lung sliding was noted. Fluid was sent for cytology, cell count differential, gram stain and culture, LDH, pH, total protein, and glucose. The patient tolerated the procedure well without obvious complication Coding CPT Codes Pulmonary/Thoracic - Pulmonary and Thoracic: 46324 Thoracentesis w imaging ([id number]) [facility] Procedure Codes ([place]) Pulmonary/Thoracic Procedure 1: Pulmonary and Thoracic: 27069 Thoracentesis w imaging
--- NOTE | 2022-04-06 12:57 | XRay Report ---
XR chest 1V portable HISTORY: S/P Right Thoracentesis COMPARISON: Chest 04/06/2022. FINDINGS: Significant decrease in size in the now small right pleural effusion status post thoracente sis. No pneumothorax. Small left pleural effusion persists. Bibasilar densities have improved. The he art remains mildly enlarged. Is left-sided pacemaker. Contrast noted within the esophagus. IMPRESSION: Significant decrease in size in the now small right pleural effusion status post thoracentesis. No pn eumothorax. ACT 112: Negative or not required by law. Electronically signed by: German Lemon M.D. 04/06/2022 12:56 PM
[2022-04-06] MEDS: PARoxetine HCL 10 MG TAB PO SCH (13:04)
[2022-04-06] MEDS: MULTIVITAMIN TAB PO SCH (13:04)
[2022-04-06] MEDS: POLYETHYLENE (MIRALAX) 17 GM PACK PO SCH (13:04)
--- NOTE | 2022-04-06 13:16 | Hospitalist Progress Note ---
Date of Service April 06, 2022 Assessment & Plan (1) Persistent atrial fibrillation: Plan 76 years old obese female with significant past medical history of paroxysmal atrial fibrillation, hypertension, hyperlipidemia, chronic rhinitis and history of breast cancer apparently has been complaining of generally weak and not feeling well for the last 1 week [employer]. She is being managed for the following: A. fib with RVR: History of such, on beta-vilma and Eliquis. Presented with 1 week history of weakness and shortness of breath on exertion. 03/27 echo: EF 45 to 50%. Mild global hypokinesis. Mild concentric LVH. A. fib with RVR. Status post IV diltiazem and IV beta-vilma. Could not tolerate IV Cardizem drip due to low blood pressure, heart rate was not responding even after digoxin. Heart rate remained elevated despite amiodarone. Status post cardioversion and reversal to sinus rhythm. Went back to A. fib with RVR with borderline low blood pressure. Cardiology on board, 03/30 cardioversion, 04/03 pacer with ventricular lead, 04/04 AV node ablation. Post ablation EKG with paced rhythm, patient with no chest pain. Continue to monitor over telemetry. Eliquis to be resumed from PM ??, getting in touch w/ cardio -->> can hold one more day if plan for biopsy. Hyponatremia: Admitting sodium of 121, as low as 119 earlier in admission. Likely secondary to poor p.o. intake. Nephrology on board, managing sodium level, slightly improving. Patient does not like urea and has refused it. Patient is still with poor appetite. Gas Derrick Operator consulted. Na low but stable. follow. encourage protein intake, low sodium diet. Likely TIA: Post AV node ablation on 04/04/2022, patient was a stroke alert, apparently had right-sided facial droop with dysarthria and right-sided extremity weakness. 04/04 CT head was negative for any bleed. f/u CT Head 04/05 w/ no new acute findings. Received 300 Mg FL aspirin. Neurologically doing better. LDL 61. Neuro evaluated. Pt unable to have Brain MRI due to recent pacemaker placement per hospital policy per MRI department. Her other imagings as below: 04/05 CTA Head: 1. No acute infarct or intracranial hemorrhage. 2. No significant stenosis, occlusion, or aneurysm within the port [place] of [place]. 04/05 CTA Neck: 1. No stenosis or dissection within the bilateral common carotid, cervical internal carotid or vertebral arteries. 2. Pathologic bilateral cervical lymphadenopathy, greater on the right. This is consistent with a neoplastic process and favors metastatic disease although lymphoma could appear similar. Potential primary neoplasm within the right palatine tonsils. These nodes would be amenable to ultrasound-guided biopsy. 3. Moderate to large right pleural effusion, partially imaged on this exam. Cervical lymphadenopathy Concern for primary neoplasm within the right palatine tonsils Concern for neoplasm [see imaging on 04/05 CTA neck]. Pt made aware, RN in the room and communicated to him as well. Updated and discussed with oncology, patient does have a history of breast cancer though this was apparently early stage. Recommends CT scan of the chest/abdomen/pelvis. Also recommends MRI of brain with and without but it is not possible for MRI policy of our hospital. Recommends ENT consult for possible proximal aerodigestive check. Recommends cervical lymph node biopsy. Discussed with cardiology, will hold Eliquis today in anticipation for biopsy tomorrow. Discussed with radiology. For node biopsy tomorrow. Resume Eliquis after radiology clearance tomorrow. Consulted ENT, await further recs. Appreciate oncology input, will follow. Pulmonary edema B/l Pleural effusion: Likely has acute diastolic heart failure secondary to A. fib with RVR. CXR suggestive of congestion and Rt > Lt pleural effusion. Patient on Lasix per nephrology for hyponatremia management. Patient maintaining on room air. Pulm on board: s/p Rt thoracentesis 04/06, 1300 mL of serous fluid removed. F/u w/ pleural studies. Weakness: Multifactorial complicated with poor appetite. PT/OT when able. Will likely need placement. Carbuncle/furuncle of trunk:: Status post antibiotic. Other chronic medical conditions: HTN --> continue home meds as and when able. DVT prophylaxis: Eliquis on hold, will likely resume tomorrow CODE STATUS: Full code PT/OT, CM to assist w/ DC planning. Complicated course, await plan course finalization. Admission and Anticipated Discharge Date Admission Date: March 26, 2022 Subjective Patient seen and examined at bedside as a follow-up of A. fib with RVR status post pacer and ablation, likely TIA on 04/04/2022 after ablation, hyponatremia and weakness. Pt was sitting up in chair, on room air, NAD, concern of rt facial droop overnight and hence was made npo, speech to eval, likely can resume diet, didn't notice any droop, no dysarthria noted. denied any chest pain, reports decreasing appetite, denies any fever or headache or dizziness. Continues to feel weak. Updated patient and her RN regarding abnormal finding on her CTA neck....made aware plan to have oncology dr see her. She voiced understanding. Called her over the phone for update, left voicemail to call us back for update. Physical Exam Physical Exam: GENERAL: Alert and oriented x3. NAD, on RA. appears ill/frail/weak. HEENT: No pallor, no icterus. Pupils equal, round and reactive to light. Oral mucosa moist. NECK: No JVD, no neck masses. HEART: S1 and S2 heard. Regular rate and rhythm. No murmur, no gallop. RESPIRATORY SYSTEM: Normal AP diameter. No accessory muscle use. No wheezing, no crackles.decreased breath sound x Rt. ABDOMEN: Soft, bowel sounds present, nontender, no distention. No face droop appreciated. intact eye closure and frowning. Dysarthia + but improving. CENTRAL NERVOUS SYSTEM: Obeys simple commands. Moves extremities. EXTREMITIES: 1+ BLE edema, no erythema seen. No sensory loss or weakness noted. Results & Data Results & Data ([facility]) Vital Signs (Past 12 Hours) Vital Signs Temp Pulse Pulse Resp BP Pulse Ox O2 Del Method 04/06/22 08:00 36.5 C 89 18 119/74 93 Room Air 04/06/22 04:10 36.4 C L 87 18 122/78 91 Room Air
[2022-04-06 13:30] LABS: Amylase Pleural Fluid < 10 U/L; Glucose Pleural Fluid 139 mg/dl; LDH Pleural Fluid 296 U/L; Total Protein Pleural Fluid < 3.0 gm/dl
[2022-04-06 14:02] LABS: Appearance Pleural Fluid Hazy; Color Pleural Fluid Yellow; Lymphocytes, Fluid 51 %; Mono,Macrophage,Mesothelial 38 %; Neutrophils, Fluid 11 %; RBC Pleural Fluid (A) < 2000 /uL; Source Pleural Fluid Right Lung; WBC Pleural Fluid (A) 182 /uL
--- NOTE | 2022-04-06 14:42 | Cardiology Progress Note ---
Date of Service April 06, 2022 Assessment & Plan (1) Persistent atrial fibrillation: (2) Atrial fibrillation with RVR: (3) Cardiomyopathy: (4) Aortic stenosis: (5) HTN (hypertension): (6) Heart failure with mid-range ejection fraction: (7) Elevated transaminase level: Plan ASSESSMENT/PLAN: 1. Persistent atrial fibrillation with rapid ventricular response: Poorly controlled with medical therapy. Patient underwent successful AV node ablation and implantation of a biventricular pacemaker. Normally functioning device. Systemic anticoagulation can be resumed at any time. However, the patient had a finding on her CT scan suggestive of malignancy and is scheduled for a possible biopsy tomorrow. I think systemic anticoagulation could reasonably be held for 1 more day to facilitate this procedure. 2. Cardiomyopathy: Mildly reduced LV systolic function. May be due to persistent tachycardia. On metoprolol succinate and losartan. 3. Aortic stenosis: Mild. Follow over time. 4. Hypertension: Blood pressure well controlled 5. Hyponatremia: Has been managed by nephrology. Improved. 6. Chronic heart failure with midrange EF: Continues on diuretics. She affected a good diuresis recently. Also underwent thoracentesis today. 7. Elevated transaminase levels: Resolved. Admission and Anticipated Discharge Date Admission Date: March 26, 2022 Subjective This afternoon the patient had no specific complaints. She has been advanced in her diet. She did not report any pain at her operative site. She recently underwent a thoracentesis without notable complication. Review of Systems Review of Systems: Per HPI Physical Exam Physical Exam: She is alert and oriented x3. Mood affect appear normal. She answered all questions appropriately. HEENT: Sclerae are anicteric. Pupils are equal and reactive to light and accommodation. Extraocular movements were intact. Neuro: Very slight right facial droop and tongue deviation to the right. Improved function of the right arm Lungs: Clear lung field on the right. Somewhat diminished breath sounds in the left base. Cardiac: The rhythm was regular. Chest: Evaluation the device implant site in left upper pectoral area did not reveal any evidence of hematoma, swelling or erythema. Extremities: Improved movement of the right arm. No evidence of hematoma at the right groin access site Skin: There are no rashes noted on examination today. Results & Data ([facility]) Vital Signs (Past 12 Hours) Vital Signs Temp Pulse Pulse Resp BP Pulse Ox O2 Del Method 04/06/22 08:00 36.5 C 89 18 119/74 93 Room Air 04/06/22 04:10 36.4 C L 87 18 122/78 91 Room Air Laboratory Results Abnormal Lab Results 04/05/22 04/06/22 04/06/22 23:20 07:13 08:41 Sodium 128 L Potassium TNP 4.3 Chloride 91 L Carbon Dioxide 28 Anion Gap 9 BUN 31 H Creatinine 0.68 Est Cr Clr Drug Dosing 86.1 Est GFR ( Amer) 98.5 Est GFR (Non-Af Amer) 85.0 BUN/Creatinine Ratio 45.6 H Glucose 133 H POC Glucose 142 H Calcium 10.8 H Phosphorus 3.8 Magnesium 2.4 Fluid Neutrophils % Fluid Lymphocytes % Fluid Meso/Macro/Cavalier % Fluid Comment Pleural Fluid Source Pleural Color Pleural Appearance Pleural pH Pleural WBC Pleural RBC Pleural Total Protein Pleural LDH Pleural Glucose Pleural Amylase 04/06/22 04/06/22 04/06/22 12:19 12:19 12:19 Sodium Potassium Chloride Carbon Dioxide Anion Gap BUN Creatinine Est Cr Clr Drug Dosing Est GFR ( Amer) Est GFR (Non-Af Amer) BUN/Creatinine Ratio Glucose POC Glucose Calcium Phosphorus Magnesium Fluid Neutrophils % 11 Fluid Lymphocytes % 51 Fluid Meso/Macro/Cavalier % 38 Fluid Comment Pleural Fluid Source Right Lung Pleural Color Yellow Pleural Appearance Hazy Pleural pH 7.52 H Pleural WBC 182 Pleural RBC < 2000 Pleural Total Protein < 3.0 Pleural LDH 296 Pleural Glucose 139 Pleural Amylase < 10 PG Care Time/CCT Total # of Minutes Spent Total Time Spent with Patient: Total time spent is greater than 50% in coordination of care (as documented) at patient's floor/unit and/or counseling patient: Coding Level of Care Code 89584 Subseq Hosp Care Lvl 2 Diagnoses Persistent atrial fibrillation I48.19 Atrial fibrillation with RVR I48.91 Cardiomyopathy I42.9 Aortic stenosis I35.0 HTN (hypertension) I10 Heart failure with mid-range ejection fraction I50.22 Elevated transaminase level R74.01
--- NOTE | 2022-04-06 14:52 | Fluoroscopy Report ---
FL video swallow HISTORY: assess for aspiration TECHNIQUE: Video fluoroscopic evaluation of swallowing was performed in the AP and lateral projection s by the speech pathology staff. The patient is fed nectar-thick and thin liquid barium, a barium coa allen wafer, and barium pudding. FLUOROSCOPY TIME: 4.2 minutes. COMPARISON STUDY: None. FINDINGS: Overall suboptimal pharyngeal constriction resulting in multiple episodes of incomplete epi glottic deflection. This also results in moderate residue within the hypopharynx most pronounced at t he vallecula. However, no aspiration demonstrated during the examination. There is esophageal dysmoti lity noted. IMPRESSION: 1. No aspiration identified. 2. Suboptimal pharyngeal constriction resulting in moderate residue throughout the hypopharynx most p ronounced at the vallecula. 3. Please see the speech pathologist report for detailed findings and recommendations. ACT 112: Negative or not required by law. Electronically signed by: German Lemon M.D. 04/06/2022 2:51 PM
--- NOTE | 2022-04-06 14:58 | Nephrology Progress Note ---
Date of Service April 06, 2022 Assessment & Plan Admission and Anticipated Discharge Date Admission Date: March 26, 2022 Subjective Assessment & Plan (1) Acute hyponatremia: Plan: Hyponatremia Hypervolemic hyponatremia with likely background SIADH patient does not like urea and has refused taking it. will take out of the list. na did improve a bit after some iv lasix given yesterday but now stalled again Increase to Lasix 40 iv tid --hold if SBP less than 100 Subjective Got Pacemaker. Got AV Ablation . earlier today had Pleural tap and 1300 ml removed. Has pedal edema Review of Systems Review of Systems: All systems reviewed & are unremarkable except as noted in HPI & below Physical Exam Physical Exam: GENERAL: Elderly white female who is in mild respiratory distress. HEENT: Mucous membrane is dry. NECK: Supple, difficult to asses JVD due to body habitus. CHEST:+Diminished lung sounds and + crackles (Minimal crackles at the bases CARDIOVASCULAR: S1 and S2, regular. ABDOMEN: Soft, nontender. EXTREMITIES:1+ bilateral pedal edema. NEUROLOGICALLY: Awake, alert, oriented x3, normal speech. Moving all 4 extremities Results & Data ([facility]) Vital Signs (Past 12 Hours) Vital Signs Temp Pulse Pulse Resp BP Pulse Ox O2 Del Method 04/06/22 08:00 36.5 C 89 18 119/74 93 Room Air 04/06/22 04:10 36.4 C L 87 18 122/78 91 Room Air
[2022-04-06] MEDS ORDERED: FUROSEMIDE INJ 20 MG/2 ML VIAL IV SCH (15:15)
[2022-04-06] MEDS: FUROSEMIDE 40 MG/4 ML VIAL IV SCH ×2 (15:49→21:23)
--- NOTE | 2022-04-06 15:52 | CT Scan Report ---
CT chest diagnostic wo con CT DOSE: 2557.02 mGy.cm HISTORY: Cervical lymphadenopathy. Assess for metastatic disease. TECHNIQUE: Multiaxial CT images of the chest were performed without contrast. A dose lowering techni que was utilized adhering to the principles of ALARA. COMPARISON: Neck CTA 04/05/2022. FINDINGS: Partial opacification of the right lower lobe bronchi. There are are patchy groundglass air space opacities throughout the majority the right lower lobe and posterior aspect of the right upper and middle lobes. There is interlobular septal thickening within the right lower lobe. Therefore, thi s could represent a pneumonia possibly secondary to aspiration or reexpansion pulmonary edema given t he recent thoracentesis. There are small bilateral pleural effusions, left greater than right. No pne umothorax. Please refer to same day abdomen and pelvis CT for further evaluation of the abdominal str uctures. Mildly distended and fluid-filled esophagus. The heart is mildly enlarged. There is a small to moderate pericardial effusion. Left-sided pacemaker is noted. Right cervical lymphadenopathy is ag ain noted. There are mildly enlarged bilateral supraclavicular nodes. Left axillary lymphadenopathy i s noted. Dominant left axillary lymph node measures 4.9 x 3.1 cm. There is a 1.6 cm left superior med iastinal lymph node. There is also right mediastinal/pericardial lymphadenopathy with the dominant ly mph node measuring 4.0 x 2.3 cm. There is suboptimal evaluation of the chest due to the streak artifa ct from the patient's overlapping arms. There may be a few right posterior pleural soft tissue nodule s best seen on image 181. However, this is difficult to assess on this noncontrast study. Dense conso lidation within the left lower lobe posteriorly likely represents compressive atelectasis from the le ft pleural effusion. A superimposed pneumonia would be difficult to exclude. IMPRESSION: 1. Supraclavicular, left axillary, and mediastinal lymphadenopathy likely representing metastatic dis ease or lymphoma. 2. Small bilateral pleural effusions most pronounced on the left. No pneumothorax status post thorace ntesis. 3. Patchy groundglass airspace opacities seen throughout the majority of the right lower lobe. This c ould be due to an aspiration pneumonia or reexpansion pulmonary edema given the recent thoracentesis. 4. Small to moderate pericardial effusion. 5. Possible right posterior pleural soft tissue nodules. 6. Additional findings as described above. ACT 112: Negative or not required by law. Electronically signed by: German Lemon M.D. 04/06/2022 3:51 PM
--- NOTE | 2022-04-06 15:56 | Consultation ---
Date of Consultation April 06, 2022 Assessment & Plan (1) Cervical lymphadenopathy: Patient has pathologic lymphadenopathy in the bilateral cervical area greater on the right with an easily palpable right tonsillar node about 3 cm. Subsequent imaging shows bilateral supraclavicular, left axillary and some mediastinal pathologic adenopathy as well. She is a non-smoker though she has had secondhand smoke exposures historically. Her swallowing difficulties and speech changes seem more acute in onset and potentially related to a cerebrovascular episode rather than to the adenopathy per se. She does not have night sweats or any classic lymphoma "B" symptoms though the lack of those certainly does not exclude a lymphoma diagnosis. She does have a history of breast cancer that was apparently limited stage. Moreover, this would be an unusual pattern of recurrence for that. Her lack of smoking history suggests against ENT or lung malignancies but certainly those are in the differential. Abbasi issue will be to proceed with biopsy. Cardiology has indicated that further holding of the apixaban would be acceptable to allow for that to be done in an expeditious fashion. Might want to target either the right cervical or one of the left axillary lymph nodes. Once we have histology in hand we will be able to initiate much more specific prognostic and treatment option discussions (2) FH: cancer: Patient has 2 sisters who have a gynecologic malignancies and her mother had a colon cancer. She herself had a breast cancer. If current histology shows an adenocarcinoma that may have specific relevance of potentially pointing towards a family cancer syndrome whose identification may offer some treatment approaches to her current presentation and as well would have relevance for other family members. Even if this is a lymphoma or some other separate process, at some point genetic review of the family may be helpful for at least other family members (3) Breast cancer: History of a T1b triple negative breast cancer status post left breast l umpectomy and radiation. Tumor was node negative. Small presentation without william involvement but is triple negative disease there is some higher risk for later relapse. Relapse as extensive adenopathy without bone or other visceral involvement would be unusual but certainly not impossible. Await pathology from the node for potential correlation. She does seem to have some particular adenopathy in the left axilla Plan Radiology will apparently be able to proceed with a lymph node biopsy within the next day or 2. As soon as that histology is available we can speak much more specifically about her prognosis and treatment options. Those treatment options will need to respect her current performance status and cardiac issues and the need for at least near-term anticoagulation. History of Present Illness Reason for Consultation: Patient with a previous history of breast cancer within the course of admission for atrial arrhythmias and cardiac dysfunction is noted to have pathologic cervical adenopathy. Attending Physician: Woodrow Carpenter MD History of Present Illness Note that the patient is a non-smoker though she has had a history of significant secondhand smoke to her . She is status post lumpectomy for a "triple negative" left breast cancer in 2015 pathologic stage [id number] treated with subsequent adjuvant radiation. She did not receive chemotherapy or hormonal therapy. There is a significant family history with 2 sisters with gynecologic cancers and her mother with colon cancer. This admission has focused on cardiac issues presentation with atrial fibrillation with rapid ventricular response requiring both cardioversion and AV william ablation. She is status post acute pacemaker placement. She has struggled to recover from those issues including developing bilateral pleural effusion status postthoracentesis today of what at the time looks like relatively clear fluid. She had developed some facial droop with serial CT scans not showing any evidence of metastatic disease, a CTA of the neck looking at circulatory issues, however, identified two right cervical level 2 lymph nodes that were enlarged 3.2 x 2.6 cm and 1.8 x 1.[address] indicates bilateral supraclavicular adenopathy as well as a 4.9 x 3.1 cm left axillary lymph node, a 1.6 cm left superior mediastinal lymph node, and right mediastinal/pericardial lymphadenopathy with the dominant lymph node measuring 4.0 x 2.3 cm. Patient is a never smoker though she was exposed to secondhand smoke with her . Retrospectively she does not remark particularly on any issues of breathing, swallowing, or speech difficulties prior to admission. Her voice has become weak and she has become generally weak and during this admission itself. She has had some swallowing difficulties but that is only during the hospitalization in the wake of the possible cerebrovascular event. Allergies Allergy/AdvReac Type Severity Reaction Status Date / Time No Known Allergies Allergy Verified 03/26/22 17:46 Home Medications Medication Instructions Recorded Confirmed Type multivitamin (Multiple Vitamins 1 tab PO QAM 10/15/18 03/26/22 History tablet) apixaban 5 mg tablet 5 mg PO BID 08/28/19 10/23/22 History metoprolol succinate 50 mg 50 mg PO QAM 01/29/19 03/26/22 History tablet,extended release 24 hr losartan 25 mg tablet 25 mg PO DAILY 03/26/22 03/26/22 History melatonin 3 mg tablet 3 mg PO HS 03/26/22 03/26/22 History sulfamethoxazole 800 1 tab PO AMHS 03/26/22 03/26/22 History mg-trimethoprim 160 mg tablet Patient History Medical History (Updated 04/06/22 @ 16:19 by Misha Sepulveda MD) Atrial fibrillation on eliquis follows with [facility] Breast cancer 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 (01/27/15) "Abnormal left breast mammogram Status post ultrasound-guided core needle biopsy 01/25/2015 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, progesterone receptor negative, HER-2/yury negative Status post lumpectomy and sentinel lymph node biopsy 03/03/2015 Pathologic stage [id number] Status post reexcision 03/23/2015 due to positive margin no residual tumor Status post completion of radiation therapy 06/10/2015 received 6120 cGy " On 07/09/15 10:05 Siria Dunham wrote "Abnormal left breast mammogram Status post ultrasound-guided core needle biopsy 01/25/2015 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, progesterone receptor negative, HER-2/yury negative Status post lumpectomy and sentinel lymph node biopsy 03/03/2015 Pathologic stage [id number] Status post reexcision 03/23/2015 due to positive margin no residual tumor " On 07/09/15 10:05 Siria Dunham wrote "Abnormal left breast mammogram Status post ultrasound-guided core needle biopsy 01/25/2015 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, progesterone receptor negative, HER-2/yury negative Status post lumpectomy and sentinel lymph node biopsy 03/03/2015 Pathologic stage [id number] Status post reexcision 03/23/2015 due to positive margin no residual tumor " On 04/07/15 12:14 Siria Dunham wrote "Abnormal left breast mammogram Status post ultrasound-guided core needle biopsy 01/25/2015 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, progesterone receptor negative, HER-2/yury negative Status post lumpectomy and sentinel lymph node biopsy 03/03/2015 Pathologic stage [id number] Status post reexcision 03/23/2015 due to positive margin no residual tumor" On 04/07/15 12:12 Siria M Dunham wrote "Abnormal left breast mammogram Status post ultrasound-guided core needle biopsy 01/25/2015 Invasive ductal carcinoma Jana receptor negative, progesterone receptor negative, HER-2/yury negative Status post lumpectomy and sentinel lymph node biopsy 03/03/2015 Pathologic stage [id number] Status post reexcision 03/23/2015 due to positive margin no residual tumor" HTN (hypertension) Morbid obesity with BMI of 40.0-44.9, adult On anticoagulant therapy eliquis daily Surgical History History of breast surgery 03/2015 reexcision of lump of left breast History of colonoscopy History of lumpectomy of left breast 02/2015 with sentinel lymph node biopsy History of needle biopsy 01/2018 left breast--malignant History of tooth extraction History of total hysterectomy with bilateral salpingo-oophorectomy (BSO) History of wisdom tooth extraction Family History Mother Family hx of colon cancer Other No family history of adverse response to anesthesia No pertinent family history Social History Smoking Status: Never smoker Second Hand Exposure: Yes ( smoked); Hx Alcohol Use: No Hx Substance Use: No Preferred Language: Senegalese Communication Ability: Effective Party Plan 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 Blood pressure 113/77, pulse 91, respirations 16, temperature 36.6, pulse ox 95% on room air Patient was getting ready for than actually having her thoracentesis during my examination so my examination was somewhat limited. She did have decreased breath sounds at the right base but was not dramatically using accessory muscles or significantly tachypneic. Heart sounds were distant but seem relatively regular and not tachycardic with good peripheral pulses. She did have a firm only slightly mobile lymph node in the "right tonsil" area approximately 3 cm in size. She did not have dramatic supraclavicular adenopathy. Abdomen seems nontender without gross mass. Results & Data ([facility]) Vital Signs (Past 12 Hours) Vital Signs Temp Pulse Pulse Resp BP Pulse Ox O2 Del Method 04/06/22 12:00 36.6 C 91 H 16 113/77 95 04/06/22 08:00 36.5 C 89 18 119/74 93 Room Air 04/06/22 04:10 36.4 C L 87 18 122/78 91 Room Air Laboratory Results Abnormal lab results 04/05/22 04/06/22 04/06/22 Range/Units 23:20 07:13 12:19 Sodium 128 L (136-145) mmol/L Chloride 91 L (98-107) mmol/L BUN 31 H (6-23) mg/dl BUN/Creatinine Ratio 45.6 H (10-20) Glucose 133 H (70-99(Fasting)) mg/dl POC Glucose 142 H (70-99) mg/dl Calcium 10.8 H (8.5-10.1) mg/dl Pleural pH 7.52 H (7.3-7.4) Diagnostic Findings Chest X-Ray 03/26/22 16:14 SINGLE VIEW CHEST CLINICAL HISTORY: Dysrhythmia. Lower extremity edema FINDINGS: An AP, portable, upright chest radiograph is compared to study dated 10/15/2018. The heart is enlarged noting atherosclerotic calcification of the thoracic. There is pulmonary vascular congestion. There are small pleural effusions, right larger than left with right basilar consolidation. No pneumothorax is seen. The skeletal structures are osteopenic. The bony thorax is grossly intact. Arthritic change is seen in the shoulders. IMPRESSION: 1. Cardiomegaly with pulmonary vascular congestion. 2. Right larger than left pleural effusions with bibasilar consolidation. ACT 112: Negative or not required by law. Electronically signed by: Burke Hernandez M.D. 03/26/2022 4:44 PM Chest X-Ray 04/04/22 07:00 XR chest 2V PA/lateral HISTORY: 76 years-old Female EXACT TIME ORDERED Evaluate for pneumothorax and l status post placement of a left subclavian pacer COMPARISON: 03/26/2022 TECHNIQUE: PA and lateral views of the chest FINDINGS: The cardiac silhouette is enlarged. Pulmonary vascular congestion with interstitial coarsening. Right greater than left layering pleural effusions with bibasilar consolidation. Lung apices are partially obscured by the patient's chin. Left subclavian pacer. A sponge projects over the left axilla. No definite postprocedural pneumothorax identified. IMPRESSION: 1. Status post placement of a left subclavian pacer. No definite postprocedural pneumothorax identified. 2. Cardiomegaly with pulmonary vascular congestion. 3. Increased size of the right greater left layering pleural effusions with bibasilar consolidation. 4. Surgical sponge projects over the left shoulder. ACT 112: Negative or not required by law. The above report was generated using voice recognition software. It may contain grammatical, syntax or spelling errors. Electronically signed by: Matthias Goins M.D. 04/04/2022 9:[address] 04/04/22 14:43 CT head/brain wo con CLINICAL HISTORY: 76 years-old Female with stroke. Acute strokelike symptoms TECHNIQUE: Multiple axial CT images of the head were obtained without contrast. A dose lowering technique was utilized adhering to the principles of ALARA. CT DOSE: 691.05 mGy.cm COMPARISON: None. FINDINGS: No acute intracranial hemorrhage, midline shift, intracranial mass, hydrocephalus, territorial ischemia or abnormal extra-axial collection. Motion degraded exam. Involutional changes with white matter hypodensities suggestive of chronic microvascular ischemic disease. Cerebral vascular calcifications. The calvarium is intact. Hyperostosis frontalis interna. Trace right mastoid effusion. Left mastoid air cells and paranasal sinuses are clear. Unremarkable soft tissues. IMPRESSION: Motion degraded exam. No acute intracranial abnormality identified. ACT 112: Negative or not required by law. The above report was generated using voice recognition software. It may contain grammatical, syntax or spelling errors. Electronically signed by: Matthias Goins M.D. 04/04/2022 2:56 PM Head CTA 04/05/22 13:51 HEAD CTA HISTORY: stroke, right upper extremity weak, dysarthria TECHNIQUE: Multiaxial CT images of the head were performed both before and after the intravenous administration of contrast to evaluate the major cerebral vessels. Maximum intensity projection images were also obtained. A dose lowering technique was utilized adhering to the principles of ALARA. COMPARISON: Head CT 04/04/2022. FINDINGS: There is chronic deformity of the right temporomandibular joint, unchanged. The paranasal sinuses and mastoid air cells are clear. The calvarium and skull base are intact. There is an old small left cerebellar infarct again noted. The ventricles and sulci demonstrate mild age-related involutional changes. Microvascular ischemic changes are again noted. There is no mass, hematoma, midline shift, or acute infarct. Visualized intracranial internal carotid arteries, distal vertebral arteries, and basilar artery are widely patent. There is no significant stenosis, occlusion, or aneurysm seen within the bilateral ACAs, MCAs, or vacuum kettle cook. There is a persistent right posterior circulation. The major dural venous sinuses are patent. IMPRESSION: 1. No acute infarct or intracranial hemorrhage. 2. No significant stenosis, occlusion, or aneurysm within the campo of [place]. ACT 112: Negative or not required by law. Electronically signed by: German Lemon M.D. 04/05/2022 3:53 PM Neck CTA 04/05/22 13:51 CT ANGIOGRAPHY OF THE NECK WITH CONTRAST CLINICAL HISTORY: Right upper extremity weakness. Stroke. COMPARISON STUDY: No previous studies for comparison. Technique: CT angiography of the carotid and vertebral arteries was obtained using Optir[employer] and 3D reconstruction on an independent workstation. NASCET criteria was utilized. Automated exposure control was utilized for the study. A dose lowering technique was utilized adhering to the principles of ALARA. CT DOSE: 1828.08 mGy.cm Findings: A moderate to large right pleural effusion is partially imaged. Pacer leads are partially imaged. There is gas within the left chest wall from recent pacer insertion. The bilateral common carotid, cervical internal carotid and vertebral arteries are patent. There is no stenosis within these vessels. There is no dissection. There is moderate plaque within the right carotid bifurcation without stenosis. There is mild plaque within the left carotid bifurcation. There is pathologic bilateral cervical lymphadenopathy, greater on the right. Index right level 2 node measures 3.2 x 2.6 cm. Index left level 2 node measures 1.8 x 1.4 cm. There is asymmetric fullness of the right palatine tonsils. Epiglottis is normal. No suspicious lesions within the bony thorax. Old lacunar infarct within left cerebellar hemisphere is incidentally noted. IMPRESSION: 1. No stenosis or dissection within the bilateral common carotid, cervical internal carotid or vertebral arteries. 2. Pathologic bilateral cervical lymphadenopathy, greater on the right. This is consistent with a neoplastic process and favors metastatic disease although lymphoma could appear similar. Potential primary neoplasm within the right palatine tonsils. These nodes would be amenable to ultrasound-guided biopsy. 3. Moderate to large right pleural effusion, partially imaged on this exam. ACT 112: Positive. There are findings on this exam that require communication between the performing entity and the patient following Patient Test Result Information Act ([place] Act 112) guidelines. Electronically signed by: Deuce Wray M.D. 04/05/2022 4:[address] 04/05/22 22:47 CT OF THE HEAD WITHOUT CONTRAST CLINICAL HISTORY: Worsening facial droop. COMPARISON STUDY: Head CT and CTA of the head performed earlier today. CT DOSE: 1768.17 mGy.cm TECHNIQUE: Helical axial images of the head were obtained without IV contrast. Automated exposure control was utilized for the study. A dose lowering technique was utilized adhering to the principles of ALARA. FINDINGS: This study is mildly compromised by motion artifact. Intravascular con trast from recent contrast-enhanced CT is incidentally noted. Ventricular system is stable. Basal cisterns are patent. White matter hypodensities are unchanged. No acute intracranial hemorrhage, midline shift or mass effect is present. Old infarct within left cerebellar hemisphere is again noted. White matter hypodensities favor small vessel disease. There are no findings to suggest acute dural sinus thrombosis or acute territorial infarct. Right cervical lymphadenopathy is better depicted on CTA of the neck. IMPRESSION: 1. No acute intracranial findings. No change in appearance of the brain. Exam mildly compromised by motion artifact. 2. Right cervical lymphadenopathy better depicted on CTA of the neck. ACT 112: Negative or not required by law. Electronically signed by: Deuce Wray M.D. 04/06/2022 7:33 AM Chest X-Ray 04/06/22 10:21 XR chest 1V portable HISTORY: Right pleural effusion. Follow-up. COMPARISON: Chest 04/04/2022. FINDINGS: No pneumothorax. The cardiac silhouette remains mildly enlarged. There is a left-sided pacemaker again noted. Moderate right and small left pleural effusions remain unchanged. There is mild central pulmonary vascular congestion without overt edema. Bibasilar densities persist and may represent atelectasis from the pleural effusions. IMPRESSION: 1. No change in the moderate right and small left pleural effusions. 2. Cardiomegaly and mild congestive change persists. ACT 112: Negative or not required by law. Electronically signed by: German Lemon M.D. 04/06/2022 11:06 AM Videofluoroscopic Swallow 04/06/22 11:45 FL video swallow HISTORY: assess for aspiration TECHNIQUE: Video fluoroscopic evaluation of swallowing was performed in the AP and lateral projections by the speech pathology staff. The patient is fed nectar-thick and thin liquid barium, a barium coated wafer, and barium pudding. FLUOROSCOPY TIME: 4.2 minutes. COMPARISON STUDY: None. FINDINGS: Overall suboptimal pharyngeal constriction resulting in multiple episodes of incomplete epiglottic deflection. This also results in moderate residue within the hypopharynx most pronounced at the vallecula. However, no aspiration demonstrated during the examination. There is esophageal dysmotility noted. IMPRESSION: 1. No aspiration identified. 2. Suboptimal pharyngeal constriction resulting in moderate residue throughout the hypopharynx most pronounced at the vallecula. 3. Please see the speech pathologist report for detailed findings and recommendations. ACT 112: Negative or not required by law. Electronically signed by: German Lemon M.D. 04/06/2022 2:51 PM Chest X-Ray 04/06/22 12:19 XR chest 1V portable HISTORY: S/P Right Thoracentesis COMPARISON: Chest 04/06/2022. FINDINGS: Significant decrease in size in the now small right pleural effusion status post thoracentesis. No pneumothorax. Small left pleural effusion persists. Bibasilar densities have improved. The heart remains mildly enlarged. Is left-sided pacemaker. Contrast noted within the esophagus. IMPRESSION: Significant decrease in size in the now small right pleural effusion status post thoracentesis. No pneumothorax. ACT 112: Negative or not required by law. Electronically signed by: German Lemon M.D. 04/06/2022 12:[address] 04/06/22 13:44 CT chest diagnostic wo con CT DOSE: 2557.02 mGy.cm HISTORY: Cervical lymphadenopathy. Assess for metastatic disease. TECHNIQUE: Multiaxial CT images of the chest were performed without contrast. A dose lowering technique was utilized adhering to the principles of ALARA. COMPARISON: Neck CTA 04/05/2022. FINDINGS: Partial opacification of the right lower lobe bronchi. There are are patchy groundglass airspace opacities throughout the majority the right lower lobe and posterior aspect of the right upper and middle lobes. There is interlobular septal thickening within the right lower lobe. Therefore, this could represent a pneumonia possibly secondary to aspiration or reexpansion pulmonary edema given the recent thoracentesis. There are small bilateral pleural effusions, left greater than right. No pneumothorax. Please refer to same day abdomen and pelvis CT for further evaluation of the abdominal structures. Mildly distended and fluid-filled esophagus. The heart is mildly enlarged. There is a small to moderate pericardial effusion. Left-sided pacemaker is noted. Right cervical lymphadenopathy is again noted. There are mildly enlarged bilateral supraclavicular nodes. Left axillary lymphadenopathy is noted. Dominant left axillary lymph node measures 4.9 x 3.1 cm. There is a 1.6 cm left superior mediastinal lymph node. There is also right mediastinal/pericardial lymphadenopathy with the dominant lymph node measuring 4.0 x 2.3 cm. There is suboptimal evaluation of the chest due to the streak artifact from the patient's overlapping arms. There may be a few right posterior pleural soft tissue nodules best seen on image 181. However, this is difficult to assess on this noncontrast study. Dense consolidation within the left lower lobe posteriorly likely represents compressive atelectasis from the left pleural effusion. A superimposed pneumonia would be difficult to exclude. IMPRESSION: 1. Supraclavicular, left axillary, and mediastinal lymphadenopathy likely representing metastatic disease or lymphoma. 2. Small bilateral pleural effusions most pronounced on the left. No pneumothorax status post thoracentesis. 3. Patchy groundglass airspace opacities seen throughout the majority of the right lower lobe. This could be due to an aspiration pneumonia or reexpansion pulmonary edema given the recent thoracentesis. 4. Small to moderate pericardial effusion. 5. Possible right posterior pleural soft tissue nodules. 6. Additional findings as described above. ACT 112: Negative or not required by law. Electronically signed by: German Lemon M.D. 04/06/2022 3:51 PM PG Care Time/CCT Total # of Minutes Spent Total Time Spent with Patient: Total time spent is greater than 50% in coordination of care (as documented) at patient's floor/unit and/or counseling patient: Coding Level of Care Code 35696 Inpt Consult Level 4 History Expanded Problem Focused Exam Problem Focused Medical Decision Making High Complexity Diagnoses Cervical lymphadenopathy R59.0 FH: cancer Z80.9 Breast cancer C50.919
--- NOTE | 2022-04-06 17:14 | ENT Consultation ---
Date of Consultation April 06, 2022 Assessment & Plan (1) Cervical lymphadenopathy: I agree with Dr. Sepulveda that this is most likely lymphoma. Agree with his plan for needle biopsy by radiology. History of Present Illness Reason for Consultation: Cervical lymphadenopathy Attending Physician: Woodrow Carpenter MD History of Present Illness 76-year-old lady with extensive cervical adenopathy in addition to mediastinal and axillary adenopathy. Evaluated by Dr. Solano. Allergies Allergy/AdvReac Type Severity Reaction Status Date / Time No Known Allergies Allergy Verified 03/26/22 17:46 Home Medications Medication Instructions Recorded Confirmed Type multivitamin (Multiple Vitamins 1 tab PO QAM 10/15/18 03/26/22 History tablet) apixaban 5 mg tablet 5 mg PO BID 01/29/19 03/26/22 History metoprolol succinate 50 mg 50 mg PO QAM 01/29/19 03/26/22 History tablet,extended release 24 hr losartan 25 mg tablet 25 mg PO DAILY 03/26/22 03/26/22 History melatonin 3 mg tablet 3 mg PO HS 03/26/22 03/26/22 History sulfamethoxazole 800 1 tab PO AMHS 03/26/22 03/26/22 History mg-trimethoprim 160 mg tablet Patient History Medical History Atrial fibrillation on eliquis follows with [facility] Breast cancer 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 (01/27/15) "Abnormal left breast mammogram Status post ultrasound-guided core needle biopsy 01/25/2015 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, progesterone receptor negative, HER-2/yury negat geovani Status post lumpectomy and sentinel lymph node biopsy 03/03/2015 Pathologic stage [id number] Status post reexcision 03/23/2015 due to positive margin no residual tumor Status post completion of radiation therapy 06/10/2015 received 6120 cGy " On 07/09/15 10:05 Siria Dunham wrote "Abnormal left breast mammogram Status post ultrasound-guided core needle biopsy 01/25/2015 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, progesterone receptor negative, HER-2/yury negative Status post lumpectomy and sentinel lymph node biopsy 03/03/2015 Pathologic stage [id number] Status post reexcision 03/23/2015 due to positive margin no residual tumor " On 07/09/15 10:05 Siria Dunham wrote "Abnormal left breast mammogram Status post ultrasound-guided core needle biopsy 01/25/2015 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, progesterone receptor negative, HER-2/yury negative Status post lumpectomy and sentinel lymph node biopsy 03/03/2015 Pathologic stage [id number] Status post reexcision 03/23/2015 due to positive margin no residual tumor " On 04/07/15 12:14 Siria Dunham wrote "Abnormal left breast mammogram Status post ultrasound-guided core needle biopsy 01/25/2015 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, progesterone receptor negative, HER-2/yury negative Status post lumpectomy and sentinel lymph node biopsy 03/03/2015 Pathologic stage [id number] Status post reexcision 03/23/2015 due to positive margin no residual tumor" On 04/07/15 12:12 Siria Dunham wrote "Abnormal left breast mammogram Status post ultrasound-guided core needle biopsy 01/25/2015 Invasive ductal carcinoma Jana receptor negative, progesterone receptor negative, HER-2/yury negative Status post lumpectomy and sentinel lymph node biopsy 03/03/2015 Pathologic stage [id number] Status post reexcision 03/23/2015 due to positive margin no residual tumor" HTN (hypertension) Morbid obesity with BMI of 40.0-44.9, adult On anticoagulant therapy eliquis daily Surgical History History of breast surgery 03/2015 reexcision of lump of left breast History of colonoscopy History of lumpectomy of left breast 02/2015 with sentinel lymph node biopsy History of needle biopsy 01/2018 left breast--malignant History of tooth extraction History of total hysterectomy with bilateral salpingo-oophorectomy (BSO) History of wisdom tooth extraction Family History Mother Family hx of colon cancer Other No family history of adverse response to anesthesia No pertinent family history Social History Smoking Status: Never smoker Second Hand Exposure: Yes ( smoked); Hx Alcohol Use: No Hx Substance Use: No Preferred Language: [place] Communication Ability: Effective Pillar Man Required: No Beliefs That Will Affect Care: Restorationism Current Living Situation: Spouse Other Information That Helps Us Care for You: No Feels Safe at Home: Yes Safety Concerns: Feels Safe At This Time Assistive Devices: None Physical Exam Constitutional: + ill appearing Eyes: PERRL, conjunctivae normal, anicteric sclerae ENMT: external ear and nose normal, oropharynx normal Neck: + anterior neck swelling Matted nodes both sides of the neck right greater than left Results & Data ([facility]) Vital Signs (Past 12 Hours) Vital Signs Temp Pulse Resp BP Pulse Ox O2 Del Method 04/06/22 16:00 36.8 C 89 18 128/78 97 04/06/22 12:00 36.6 C 91 H 16 113/77 95 04/06/22 08:00 36.5 C 89 18 119/74 93 Room Air Diagnostic Findings CT showed extensive cervical adenopathy
--- NOTE | 2022-04-06 18:05 | CT Scan Report ---
ABDOMEN AND PELVIS CT WITHOUT CONTRAST HISTORY: Acute generalized abdominal pain, rule out mets dz TECHNIQUE: Multiaxial CT images of the abdomen and pelvis were performed without contrast. A dose lo wering technique was utilized adhering to the principles of ALARA. COMPARISON STUDY: Chest CT of same day. FINDINGS: Partially imaged left axillary lymphadenopathy measures up to 5.5 x 3.1 cm. Partially image d mediastinal lymphadenopathy. Cardiomegaly with partially imaged pacer leads. Pericardial effusion m easures up to 1.6 cm. Left greater than right pleural effusions. Dependent left basilar consolidation suggestive of compressive atelectasis. Intralobular septal thickening of the right lung base with ri ght basilar airspace opacities. No pneumatosis or pneumoperitoneum. Splenic calcifications. Moderate pancreatic atrophy. Unremarkable adrenal glands. Distended gallbladd er containing hyperdense material, possibly vicarious excretion or sludge. Indeterminate 1.2 cm hypod ense lesion of the left hepatic lobe on image 36 series 3. Contrast enhanced kidneys. Minimal contras t noted within the renal collecting systems. Mild nonspecific bilateral perinephric stranding. Decomp ressed urinary bladder with Catalan catheter in place. Pelvic floor relaxation with cystocele and recto jason. Calcification noted within the vaginal cuff. Indeterminate soft tissue attenuating foci are not ed within the region of the vaginal cuff measuring up to 2.9 x 4.3 cm on image 352. Atherosclerosis o f the aorta. No pathologically enlarged retroperitoneal lymph nodes identified. 2.0 x 1.6 cm mesenter ic nodule, image 338. There are a few additional smaller mesenteric nodules also present. Trace abdom inopelvic ascites. Colonic diverticulosis. There is no bowel obstruction or bowel wall thickening. No rmal appendix. Generalized body wall edema. Degenerative changes of the spine, pelvis and hips. Subcutaneous emphyse ma of the anterior left chest wall may be on a postsurgical basis. No destructive bone lesion identif ied. IMPRESSION: 1. Partially imaged pathologic mediastinal and left axillary lymphadenopathy is noted in conjunction with a few mesenteric nodules suggestive of additional enlarged lymph nodes. Oncologic workup is need ed. 2. Prior hysterectomy. Soft tissue nodules abutting the vaginal cuff measure up to 4.3 x 2.9 cm. 3. Please refer to chest CT of same day for discussion of the intrathoracic findings. 4. No bowel obstruction or bowel wall thickening. 5. Left greater than right pleural effusions with trace ascites and anasarca. 6. Additional findings as above. ACT 112: Negative or not required by law. The above report was generated using voice recognition software. It may contain grammatical, syntax o r spelling errors. Dictated: 04/06/2022 2:51 PM Transcribed: 04/06/2022 3:46 PM Tati [id number] [email or web address] Electronically signed by: Matthias Goins M.D. 04/06/2022 6:03 PM
[2022-04-06] MEDS: MELATONIN 3 MG TAB PO SCH (21:23)
[2022-04-06] MEDS: ACETAMINOPHEN 500 MG TAB PO PRN (21:24)
[2022-04-07 08:00] LABS: BUN Creatinine Ratio 40.7 (10-20); Creatinine Clr Calc Pharmacy 68.1 ml/min; Est GFR (African American) 76.1 ml/min; Est GFR (Non-African American) 65.6 ml/min; Magnesium 2.2 mg/dl (1.7-2.4); Phosphorus 3.7 mg/dl (2.5-4.9); Potassium 4.2 mmol/L (3.5-5.1)
[2022-04-07] MEDS: LIDOCAINE 5% 1 PATCH TD SCH (08:10)
[2022-04-07] MEDS: FUROSEMIDE 40 MG/4 ML VIAL IV SCH ×3 (08:11→21:22)
[2022-04-07 08:15] LABS: Hematocrit (blood only) 44.9 % (34.1-44.9); Hemoglobin 15.3 g/dl (12.0-16.0); Mean Corpuscular Hemoglobin 30.4 pg (25.0-34.0); Mean Corpuscular Hgb Conc 34.1 g/dL (32.0-36.0); Mean Corpuscular Volume 89.3 fL (80.0-100.0); Mean Platelet Volume 11.3 fL (9.4-12.3); Platelet Count 111 K/uL (130-400); Platelet Estimate Decreased (Normal); RDW Coefficient of Variation 18.6 % (11.5-14.5); RDW Standard Deviation 54.9 fL (36.4-46.3); Red Blood Count 5.03 M/uL (3.93-5.22); White Blood Count 10.03 K/ul (4.8-10.8)
--- NOTE | 2022-04-07 10:31 | Nephrology Progress Note ---
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 will take out of the list. na did improve a bit after some iv lasix given yesterday but now stalled again continue Lasix 40 iv tid for today--hold if SBP less than 100 Subjective Got Pacemaker. Got AV Ablation . had Pleural tap and 1300 ml removed. Has pedal edema. Now being worked for ?/ Lymphoma Review of Systems Review of Systems: All systems reviewed & are unremarkable except as noted in HPI & below Physical Exam Physical Exam: GENERAL: Elderly white female who is in mild respiratory distress. HEENT: Mucous membrane is dry. NECK: Supple, difficult to asses JVD due to body habitus. CHEST:+Diminished lung sounds and + crackles (Minimal crackles at the bases CARDIOVASCULAR: S1 and S2, regular. ABDOMEN: Soft, nontender. EXTREMITIES:1+ bilateral pedal edema. NEUROLOGICALLY: Awake, alert, oriented x3, normal speech. Moving all 4 extremities Results & Data ([facility]) Vital Signs (Past 12 Hours) Vital Signs Temp Pulse Pulse Resp BP Pulse Ox O2 Del Method 04/07/22 08:05 Room Air 04/07/22 07:52 36.4 C L 88 20 106/69 92 Room Air 04/07/22 03:42 36.4 C L 90 16 102/66 94 Room Air 04/06/22 23:11 36.3 C L 89 16 118/77 93 Room Air
--- NOTE | 2022-04-07 10:38 | Gastrointestinal Consultation ---
Date of Consultation April 07, 2022 Assessment & Plan (1) Dysphagia: Seems that she has some mild chronic dysphagia including mild oropharyngeal dysphagia. Most likely she does have esophageal dysmotility as is common in her age group. Plan Recommend: Per speech path notes slippery diet, soft foods, aspiration precautions. Reviewed the above with her including encouraging her to chew thoroughly, jennifer with water, avoid distractions while eating and always sit upright to eat. Patient continues to feel that she does not have any significant problem with swallowing. For this reason, would recommend avoiding inpatient EGD, but encouraged her to speak with her PCP about any difficulty swallowing after discharge. If they feel an EGD would benefit her, our service would be happy to provide an OP EGD. Supervising Physician Co-Signing Physician Notes Attending attestation I have seen, examined this patient, and agree with the findings and above by our mid-level provider GERRI King, with the following additions: - Swallowing well and not having acute issues - Just s/p LAD bx - Continue speech recs - When improved discuss timing of EGD if necessary History of Present Illness Reason for Consultation: Dysphagia Requesting Physician: Dr. Woodrow Carpenter MD Attending Physician: Woodrow Carpenter MD History of Present Illness Ms. Mirna Robbins is a 76-year-old female patient of Dr. Miquel jones a hx of P A-fib S/P recent pacer insertion, On Eliquis (held since a 03/26), CHF (mild LV hypofunction), mild , HTN, Hyperlipidemia, breast cancer S/P lumpectomy in 2014 (no chemo or radiation) who was admitted on 03/26 for weakness and was found to be in a-fib w RVR. Pathologically enlarged Supraclavicular, left axillary, and mediastinal lymphadenopathywere found on CT chest and she just underwent lymph node bx with results pending. GI is consulted for dysphagia. The patient tells us that she does not have any problems swallowing. When I asked her more questions she does admit to having some difficulty swallowing dry foods such as chicken prior to this admission but still minimizes her difficulty. She had undergone video swallow here without any aspiration but with mild oropharyngeal dysphagia and suggestion of esophageal dysfunction. She denies ever coughing food out, choking on food, and does not feel like it gets stuck in her chest. Review of the speech therapy note mentions that she coughs after eating. Denies any recent heartburn or reflux symptoms. She has never undergone EGD. Allergies Allergy/AdvReac Type Severity Reaction Status Date / Time No Known Allergies Allergy Verified 03/26/22 17:46 Home Medications Medication Instructions Recorded Confirmed Type multivitamin (Multiple Vitamins 1 tab PO QAM 10/15/18 03/26/22 History tablet) apixaban 5 mg tablet 5 mg PO BID 01/29/19 03/26/22 History metoprolol succinate 50 mg 50 mg PO QAM 01/29/19 03/26/22 History tablet,extended release 24 hr losartan 25 mg tablet 25 mg PO DAILY 03/26/22 03/26/22 History melatonin 3 mg tablet 3 mg PO HS 03/26/22 03/26/22 History sulfamethoxazole 800 1 tab PO AMHS 03/26/22 03/26/22 History mg-trimethoprim 160 mg tablet Patient History Medical History Atrial fibrillation on eliquis follows with [facility] Breast cancer 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 (01/27/15) "Abnormal left breast mammogram Status post ultrasound-guided core needle biopsy 01/25/2015 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, progesterone receptor negative, HER-2/yury negative Status post lumpectomy and sentinel lymph node biopsy 03/03/2015 Pathologic stage [id number] Status post reexcision 03/23/2015 due to positive margin no residual tumor Status post completion of radiation therapy 06/10/2015 received 6120 cGy " On 07/09/15 10:05 Siria Dunham wrote "Abnormal left breast mammogram Status post ultrasound-guided core needle biopsy 01/25/2015 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, progesterone receptor negative, HER-2/yury negative Status post lumpectomy and sentinel lymph node biopsy 03/03/2015 Pathologic stage [id number] Status post reexcision 03/23/2015 due to positive margin no residual tumor " On 07/09/15 10:05 Siria Dunham wrote "Abnormal left breast mammogram Status post ultrasound-guided core needle biopsy 01/25/2015 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, progesterone receptor negative, HER-2/yury negative Status post lumpectomy and sentinel lymph node biopsy 03/03/2015 Pathologic stage [id number] Status post reexcision 03/23/2015 due to positive margin no residual tumor " On 04/07/15 12:14 Siria Dunham wrote "Abnormal left breast mammogram Status post ultrasound-guided core needle biopsy 01/25/2015 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, progesterone receptor negative, HER-2/yury negative Status post lumpectomy and sentinel lymph node biopsy 03/03/2015 Pathologic stage [id number] Status post reexcision 03/23/2015 due to positive margin no residual tumor" On 04/07/15 12:12 Siria Dunham wrote "Abnormal left breast mammogram Status post ultrasound-guided core needle biopsy 01/25/2015 Invasive ductal carcinoma Jana receptor negative, progesterone receptor negative, HER-2/yury negative Status post lumpectomy and sentinel lymph node biopsy 03/03/2015 Pathologic stage [id number] Status post reexcision 03/23/2015 due to positive margin no residual tumor" HTN (hypertension) Morbid obesity with BMI of 40.0-44.9, adult On anticoagulant therapy eliquis daily Surgical History History of breast surgery 03/2015 reexcision of lump of left breast History of colonoscopy History of lumpectomy of left breast 02/2015 with sentinel lymph node biopsy History of needle biopsy 01/2018 left breast--malignant History of tooth extraction History of total hysterectomy with bilateral salpingo-oophorectomy (BSO) History of wisdom tooth extraction Family History Mother Family hx of colon cancer Other No family history of adverse response to anesthesia No pertinent family history Social History Smoking Status: Never smoker Second Hand Exposure: Yes ( smoked); Hx Alcohol Use: No Hx Substance Use: No Preferred Language: Turkish Communication Ability: Effective Electromatic Typist Required: No Beliefs That Will Affect Care: Jehovah'S Witness Current Living Situation: Spouse Other Information That Helps Us Care for You: No Feels Safe at Home: Yes Safety Concerns: Feels Safe At This Time Assistive Devices: None Review of Systems Review of Systems: ROS: Gen: + weakness, No fevers/weight loss Eyes: No eye redness, or pain, no recent vision changes Resp: Denies SOB, no cough Cardio: + palpitations/irregular beats, no chest pain GI: No abdominal pain, no nausea/vomiting : Denies pain on urination Skin: No jaundice, itching or new rashes A total of 12 systems were reviewed and were (-). Physical Exam Constitutional: well developed, well nourished, + ill appearing (chronically), + obese and cooperative Eyes: PERRL, conjunctivae normal, anicteric sclerae ENMT: external ear and nose normal, oropharynx normal Respiratory: normal respiratory effort, lungs clear to auscultation normal respiratory effort and able to speak in complete sentences; no cough diminished at the bases Cardiovascular: Rate/Rhythm: regular rate and regular rhythm trace bilat lower leg edema Gastrointestinal (Abdomen): normal bowel sounds, soft, nontender, no hepatosplenomegaly Skin: no rashes, warm and dry normal turgor Neurologic: PERRL, EOMI, accommodation nl, no face palsy, no dysarthria Psychiatric: A+Ox3, euthymic affect Results & Data ([facility]) Vital Signs (Past 12 Hours) Vital Signs Temp Pulse Pulse Resp BP Pulse Ox O2 Del Method 04/07/22 08:05 Room Air 04/07/22 07:52 36.4 C L 88 20 106/69 92 Room Air 04/07/22 03:42 36.4 C L 90 16 102/66 94 Room Air 04/06/22 23:11 36.3 C L 89 16 118/77 93 Room Air Laboratory Results WBC 10, Hb 15, HCT 44, PLT S111, NA 130, K4.2, CL 92, CO2 30, BUN 35, CR 0.86, sodium 133. Diagnostic Findings Video swallow 04/06/22: 1. No aspiration identified. 2. Suboptimal pharyngeal constriction resulting in moderate residue throughout the hypopharynx most pronounced at the vallecula. 3. Please see the speech pathologist report for detailed findings and recommendations.
--- NOTE | 2022-04-07 10:58 | Ultrasound Report ---
ULTRASOUND-GUIDED FINE-NEEDLE ASPIRATION AND CORE NEEDLE BIOPSY OF THE LEFT AXILLARY LYMPH NODE HISTORY: Left axillary lymphadenopathy. COMPARISON: Chest CT 04/06/2022. PROCEDURE: Written informed consent was obtained. The left axilla was prepped and draped in the usual sterile fashion. 1% lidocaine was used for local anesthesia. A total of 2 passes using 28 Shraddha n eedle and an 18-gauge by 9 cm biopsy needle were made through the dominant left axillary lymph node w hich measures 4 cm under ultrasound guidance. Specimens were given to the on-site pathologist who det ermined adequate tissue for diagnosis. The patient tolerated the procedure well. There were no immedi ate complications. IMPRESSION: Successful ultrasound-guided fine-needle aspiration and core needle biopsy of a left axillary lymph n ode. ACT 112: Negative or not required by law. Electronically signed by: German Lemon M.D. 04/07/2022 10:56 AM
[2022-04-07] MEDS: MULTIVITAMIN TAB PO SCH (11:49)
[2022-04-07] MEDS: PARoxetine HCL 10 MG TAB PO SCH (11:50)
--- NOTE | 2022-04-07 12:16 | Pulmonology Progress Note ---
Date of Service April 07, 2022 Assessment & Plan (1) Pleural effusion: Plan Impression: 76-year-old female with remote history of breast cancer now with bilateral pleural effusions. She is status post thoracentesis on the right. The fluid appeared to be lymphocytic borderline exudate. Recommendations: 1. Bilateral pleural effusions, right greater than left. No evidence of pn eumothorax postthoracentesis or reaccumulation on exam. Await pleural fluid cytology. Would continue diuretics under the direction of nephrology. 2. Await results of other pathology specimens. 3. Groundglass opacities in the right lung base postthoracentesis. Suspect hydrostatic edema. No signs or symptoms to suggest infection. No indication for antibiotics currently. This point time I think pulmonary has little else to offer the patient. Would follow-up with pleural fluid cytology and with correlates from other biopsy specimens. We are available to assist in evaluation management this patient if needed. Feel free to contact us if we can be of additional assistance. Otherwise will defer care to the primary admitting service as well as her other medical consultants. Discussed with patient and family at bedside. Admission and Anticipated Discharge Date Admission Date: March 26, 2022 Subjective Patient seen and examined. EMR reviewed. The patient is sitting up in bed with family in attendance. She reports that her breathing is better after the thoracentesis. No pain. She is not noted any swelling in her chest. She is status post lymph node biopsy with radiology today. She denies fevers chills night sweats. Review of Systems Review of Systems: All systems reviewed & are unremarkable except as noted in Subjective Physical Exam Constitutional: well developed, well nourished, + ill appearing (chronically), + obese and cooperative Eyes: PERRL, conjunctivae normal, anicteric sclerae ENMT: external ear and nose normal, oropharynx normal Respiratory: normal respiratory effort, lungs clear to auscultation normal respiratory effort and able to speak in complete sentences; no cough diminished at the bases Cardiovascular: Rate/Rhythm: regular rate and regular rhythm trace bilat lower leg edema Gastrointestinal (Abdomen): normal bowel sounds, soft, nontender, no hepatosplenomegaly Skin: no rashes, warm and dry normal turgor Neurologic: PERRL, EOMI, accommodation nl, no face palsy, no dysarthria Psychiatric: A+Ox3, euthymic affect Results & Data Results & Data ([facility]) Vital Signs (Past 12 Hours) Vital Signs Temp Pulse Pulse Resp BP Pulse Ox O2 Del Method 04/07/22 11: 36.5 C 91 H 16 88/60 L 96 04/07/22 08:05 Room Air 04/07/22 07:52 36.4 C L 88 20 106/69 92 Room Air 04/07/22 03:42 36.4 C L 90 16 102/66 94 Room Air Laboratory Results 04/07/22 07:15 04/07/22 07:15 Pleural fluid studies: Cytology pending Differential: 11% neutrophils, 51% lymphocytes, 38% mesothelial cells Pleural pH 7.52 Pleural LDH 296 Pleural glucose 139 Pleural total protein less than 3 Gram stain showed few white blood cells with no organisms, cultures pending Pleural AFB stains negative, cultures pending Diagnostic Findings Post thoracentesis x-ray 04/06/2022 was independently reviewed. No pneumothorax. Decrease in size of the right-sided effusion. CT chest diagnostic wo con 04/06/2022: Independently reviewed CT DOSE: 2557.02 mGy.cm HISTORY: Cervical lymphadenopathy. Assess for metastatic disease. TECHNIQUE: Multiaxial CT images of the chest were performed without contrast. A dose lowering technique was utilized adhering to the principles of ALARA. COMPARISON: Neck CTA 04/05/2022. FINDINGS: Partial opacification of the right lower lobe bronchi. There are are patchy groundglass airspace opacities throughout the majority the right lower l obe and posterior aspect of the right upper and middle lobes. There is interlobular septal thickening within the right lower lobe. Therefore, this could represent a pneumonia possibly secondary to aspiration or reexpansion pulmonary edema given the recent thoracentesis. There are small bilateral ple ural effusions, left greater than right. No pneumothorax. Please refer to same day abdomen and pelvis CT for further evaluation of the abdominal structures. Mildly distended and fluid-filled esophagus. The heart is mildly enlarged. There is a small to moderate pericardial effusion. Left-sided pacemaker is noted. Right cervical lymphadenopathy is again noted. There are mildly enlarged bilateral supraclavicular nodes. Left axillary lymphadenopathy is noted. Dominant left axillary lymph node measures 4.9 x 3.1 cm. There is a 1.6 cm left superior mediastinal lymph node. There is also right mediastinal/pericardial lymphadenopathy with the dominant lymph node measuring 4.0 x 2.3 cm. There is suboptimal evaluation of the chest due to the streak artifact from the patient's overlapping arms. There may be a few right posterior pleural soft tissue nodules best seen on image 181. However, this is difficult to assess on this noncontrast study. Dense consolidation within the left lower lobe posteriorly likely represents compressive atelectasis from the left pleural effusion. A superimposed pneumonia would be difficult to exclude. IMPRESSION: 1. Supraclavicular, left axillary, and mediastinal lymphadenopathy likely representing metastatic disease or lymphoma. 2. Small bilateral pleural effusions most pronounced on the left. No pneumothorax status post thoracentesis. 3. Patchy groundglass airspace opacities seen throughout the majority of the right lower lobe. This could be due to an aspiration pneumonia or reexpansion pulmonary edema given the recent thoracentesis. 4. Small to moderate pericardial effusion. 5. Possible right posterior pleural soft tissue nodules. 6. Additional findings as described above. PG Care Time/CCT Total # of Minutes Spent Total Time Spent with Patient: Total time spent is greater than 50% in coordination of care (as documented) at patient's floor/unit and/or counseling patient: Coding Level of Care Code 99656 Subseq Hosp Care Lvl 2 Diagnoses Pleural effusion J90
[2022-04-07] MEDS: POLYETHYLENE (MIRALAX) 17 GM PACK PO SCH (14:11)
--- NOTE | 2022-04-07 14:50 | Hospitalist Progress Note ---
Date of Service April 07, 2022 Assessment & Plan (1) Persistent atrial fibrillation: Plan 76 years old obese female with significant past medical history of paroxysmal atrial fibrillation, hypertension, hyperlipidemia, chronic rhinitis and history of breast cancer apparently has been complaining of generally weak and not feeling well for the last 1 week [employer]. She is being managed for the following: A. fib with RVR: History of such, on beta-vilma and Eliquis. Presented with 1 week history of weakness and shortness of breath on exertion. 03/27 echo: EF 45 to 50%. Mild global hypokinesis. Mild concentric LVH. A. fib with RVR. Status post IV diltiazem and IV beta-vilma. Could not tolerate IV Cardizem drip due to low blood pressure, heart rate was not responding even after digoxin. Heart rate remained elevated despite amiodarone. Status post cardioversion and reversal to sinus rhythm. Went back to A. fib with RVR with borderline low blood pressure. Cardiology on board, 03/30 cardioversion, 04/03 pacer with ventricular lead, 04/04 AV node ablation. Post ablation EKG with paced rhythm, patient with no chest pain. Continue to monitor over telemetry. Eliquis to be resumed from PM . Hyponatremia: Admitting sodium of 121, as low as 119 earlier in admission. Likely secondary to poor p.o. intake. Nephrology on board, managing sodium level, slightly improving. Patient does not like urea and has refused it. Patient is still with poor appetite. Central Station Operator consulted. Na low but stable. follow. encourage protein intake, low sodium diet. d/w nephrology. Likely TIA: Post AV node ablation on 04/04/2022, patient was a stroke alert, apparently had right-sided facial droop with dysarthria and right-sided extremity weakness. 04/04 CT head was negative for any bleed. f/u CT Head 04/05 w/ no new acute findings. Received 300 Mg NH aspirin. Neurologically doing better. LDL 61. Neuro evaluated. Pt unable to have Brain MRI due to recent pacemaker placement per hospital policy per MRI department. Her other imagings as below: 04/05 CTA Head: 1. No acute infarct or intracranial hemorrhage. 2. No significant stenosis, occlusion, or aneurysm within the [place]. 04/05 CTA Neck: 1. No stenosis or dissection within the bilateral common carotid, cervical internal carotid or vertebral arteries. 2. Pathologic bilateral cervical lymphadenopathy, greater on the right. This is consistent with a neoplastic process and favors metastatic disease although lymphoma could appear similar. Potential primary neoplasm within the right palatine tonsils. These nodes would be amenable to ultrasound-guided biopsy. 3. Moderate to large right pleural effusion, partially imaged on this exam. Video swallow on her doesn't show aspiration but has esophageal dysmotility. Recommends GI consult. Diet recs would beeasy to chew, slippery, aspiration and reflux precautions. GI evaluated 04/07, no intervention for now; f/u w/ GI as OP. Cervical lymphadenopathy Concern for primary neoplasm within the right palatine tonsils Concern for neoplasm [see imaging on 04/05 CTA neck]. Pt made aware, RN in the room and communicated to him as well. Updated and discussed with oncology 04/07, patient does have a history of breast cancer though this was apparently early stage. Recommends CT scan of the chest/abdomen/pelvis. Also recommends MRI of brain with and without but it is not possible for MRI policy of our hospital. Recommends ENT consult for possible proximal aerodigestive check. Recommends cervical lymph node biopsy. 04/06 CT AP: Partially imaged pathologic mediastinal and left axillary LAD in conjunction with a few mesenteric nodules. Recommends oncologic work-up. Prior hysterectomy/soft tissue nodules abutting the vaginal cuff measure up to 4.3 x 2.9 cm. Left greater than right pleural effusion. 04/06 CT chest: 1. Supraclavicular, left axillary, and mediastinal lymphadenopathy likely representing metastatic disease or lymphoma. 2. Small bilateral pleural effusions most pronounced on the left. No pneumothorax status post thoracentesis. 3. Patchy groundglass airspace opacities seen throughout the majority of the right lower lobe. This could be due to an aspiration pneumonia or reexpansion pulmonary edema given the recent thoracentesis. 4. Small to moderate pericardial effusion. 5. Possible right posterior pleural soft tissue nodules. 6. Additional findings as described above. Oncology/pulmonology/ENT on board. Status post right thoracentesis 04/06, 1300 mL of serous fluid removed, follow-up with pleural studies. 04/07: Successful ultrasound-guided fine-needle aspiration and core needle biopsy of her left axillary lymph node. --> Follow-up with lymph node pathology. Pulmonary edema B/l Pleural effusion: Likely has acute diastolic heart failure secondary to A. fib with RVR. CXR suggestive of congestion and Rt > Lt pleural effusion. Patient on Lasix per nephrology for hyponatremia management. Patient maintaining on room air. Pulm on board: s/p Rt thoracentesis 04/06, 1300 mL of serous fluid removed. F/u w/ pleural studies. Weakness: Multifactorial complicated with poor appetite. PT/OT when able. Will likely need placement. Carbuncle/furuncle of trunk:: Status post antibiotic. Other chronic medical conditions: HTN --> continue home meds as and when able. DVT prophylaxis: Eliquis resumed CODE STATUS: Full code PT/OT, CM to assist w/ DC planning. Complicated course, pending plan finalization by oncology/ENT. Likely will be ready from nephrology standpoint by tomorrow. Admission and Anticipated Discharge Date Admission Date: March 26, 2022 Subjective Patient seen and examined at bedside as a follow-up of A. fib with RVR status post pacer and ablation, likely TIA on 04/04/2022 after ablation, hyponatremia and weakness. Pt was lying in bed, on room air, NAD, is s/p Lt axillary LN biopsy by radiology 04/07/22, reports breathing better after Rt thoracentesis 04/06, denies fever, chills, headache, chest pain, palpitations, sore throat. Reports low appetite. No BM in few days but she doesn't have much of appetite, she has been moving gas well and no belly pain. Family at bedside, updated her Dtr Yanely. Physical Exam Physical Exam: GENERAL: Alert and oriented x3. NAD, on RA. appears ill/frail/weak. HEENT: No pallor, no icterus. Pupils equal, round and reactive to light. Oral mucosa moist. NECK: No JVD, Rt > Lt cervical LAD. HEART: S1 and S2 heard. Regular rate and rhythm. No murmur, no gallop. RESPIRATORY SYSTEM: Normal AP diameter. No accessory muscle use. No wheezing, no crackles. Rt lung breath sounds improved. ABDOMEN: Soft, bowel sounds present, nontender, no distention. No face droop appreciated. intact eye closure and frowning. Dysarthia + but improving. CENTRAL NERVOUS SYSTEM: Obeys simple commands. Moves extremities. EXTREMITIES: 1+ BLE edema, no erythema seen. No sensory loss or weakness noted. Results & Data Results & Data ([facility]) Vital Signs (Past 12 Hours) Vital Signs Temp Pulse Pulse Resp BP Pulse Ox O2 Del Method 04/07/22 11: 36.5 C 91 H 16 88/60 L 96 04/07/22 08:05 Room Air 04/07/22 07:52 36.4 C L 88 20 106/69 92 Room Air 04/07/22 03:42 36.4 C L 90 16 102/66 94 Room Air
--- NOTE | 2022-04-07 14:57 | Cardiology Progress Note ---
Date of Service April 07, 2022 Assessment & Plan (1) Persistent atrial fibrillation: (2) Atrial fibrillation with RVR: (3) Cardiomyopathy: (4) Aortic stenosis: (5) HTN (hypertension): (6) Heart failure with mid-range ejection fraction: (7) Elevated transaminase level: Plan ASSESSMENT/PLAN: 1. Persistent atrial fibrillation with rapid ventricular response: Status post AV node ablation and implantation of bi- ventricular pacemaker. Normal function. We will continue pacing at 90 beats per minute for few more weeks and then reduce the rate. She should refrain from lifting left arm above the shoulder behind the neck for another month. She should avoid getting the wound wet for another 3 days. 2. Cardiomyopathy: Mildly reduced LV systolic function. May be due to persistent tachycardia. On metoprolol succinate and losartan. 3. Aortic stenosis: Mild. Follow over time. 4. Hypertension: Blood pressure well controlled 5. Hyponatremia: Has been managed by nephrology. Improved. 6. Chronic heart failure with midrange EF: Continues on diuretics. She con tinues to affect a good diuresis. She will need to have her electrolytes and renal function monitor closely. 7. Elevated transaminase levels: Resolved. 8. Lymphadenopathy. Axillary lymph node biopsy today. I would recommend restarting her Eliquis this evening provided there are no additional contraindications. I will arrange for follow-up in our clinic. Cardiology will sign off at this point. Please contact the on-call [facility] water meter installer for any additional questions. Admission and Anticipated Discharge Date Admission Date: March 26, 2022 Subjective This morning the patient had no specific complaints. She stated that her breathing was all right. No significant chest pain. She has not ambulated and feel somewhat weak. Review of Systems Review of Systems: Per HPI Physical Exam Physical Exam: She is alert and oriented x3. Mood affect appear normal. She a nswered all questions appropriately. HEENT: Sclerae are anicteric. Pupils are equal and reactive to light and accommodation. Extraocular movements were intact. Neuro: Very slight right facial droop and tongue deviation to the right. Improved function of the right arm Lungs: Clear lung field on the right. Somewhat diminished breath sounds in the left base. Cardiac: The rhythm was regular. Extremities: Improved movement of the right arm. Some weakness in the right biceps. Skin: There are no rashes noted on examination today. Results & Data ([facility]) Vital Signs (Past 12 Hours) Vital Signs Temp Pulse Pulse Resp BP Pulse Ox O2 Del Method 04/07/22 11: 36.5 C 91 H 16 88/60 L 96 04/07/22 08:05 Room Air 04/07/22 07:52 36.4 C L 88 20 106/69 92 Room Air 04/07/22 03:42 36.4 C L 90 16 102/66 94 Room Air Laboratory Results Abnormal Lab Results 04/07/22 04/07/22 07:15 07:15 WBC 10.03 RBC 5.03 Hgb 15.3 Hct 44.9 MCV 89.3 MCH 30.4 MCHC 34.1 RDW Std Deviation 54.9 H RDW Coeff of Carlita 18.6 H Plt Count 111 L MPV 11.3 Platelet Estimate Decreased L Sodium 130 L Potassium 4.2 Chloride 92 L Carbon Dioxide 30 Anion Gap 8 BUN 35 H Creatinine 0.86 Est Cr Clr Drug Dosing 68.1 Est GFR ( Amer) 76.1 Est GFR (Non-Af Amer) 65.6 BUN/Creatinine Ratio 40.7 H Glucose 133 H Calcium 11.0 H Phosphorus 3.7 Magnesium 2.2 PG Care Time/CCT Total # of Minutes Spent Total Time Spent with Patient: Total time spent is greater than 50% in coordination of care (as documented) at patient's floor/unit and/or counseling patient: Coding Level of Care Code 21459 Subseq Hosp Care Lvl 2 Diagnoses Persistent atrial fibrillation I48.19 Atrial fibrillation with RVR I48.91 Cardiomyopathy I42.9 Aortic stenosis I35.0 HTN (hypertension) I10 Heart failure with mid-range ejection fraction I50.22 Elevated transaminase level R74.01
[2022-04-07] MEDS ORDERED: MIDODRINE HCL 2.5 MG TAB PO ONE (16:15)
[2022-04-07] MEDS ORDERED: ALBUMIN 25% 100 mL 25 GM/100 ML VIAL IV ONE ×4 (16:15→22:17)
[2022-04-07] MEDS ORDERED: SODIUM CHLORIDE 0.9% 500 ML IV STA (16:18)
[2022-04-07 21:44] LABS: BUN Creatinine Ratio 41.8 (10-20); Calcium 10.7 mg/dl (8.5-10.1); Creatinine Clr Calc Pharmacy 59.7 ml/min; Est GFR (African American) 64.9 ml/min; Potassium 3.6 mmol/L (3.5-5.1)
[2022-04-07] MEDS ORDERED: MIDODRINE HCL 2.5 MG TAB PO STA (22:17)
--- NOTE | 2022-04-07 22:17 | Communication Note ---
Date of Service: April 07, 2022 Made aware by RN of SBP 60s around 8:40 PM. Patient initially comfortable but later noted to be lethargic and slurring. Serum sodium 129 from 130 this a.m. Serum creatinine 0.98 from 0.86 this a.m. Lactic acid 2 AP Hypotension Persistent since 11 AM today Likely secondary to hypovolemia from diuretic Rx Encephalopathy secondary to above Rule out bleed given NOAC Rx IV albumin Hold Lasix for now CT head once BP stable
[2022-04-07] MEDS: APIXABAN 5 MG TABLET PO SCH (22:30)
[2022-04-08] MEDS ORDERED: MIDODRINE HCL 2.5 MG TAB PO STA (00:33)
[2022-04-08] MEDS ORDERED: SODIUM CHLORIDE 0.9% 500 ML IV ONE (00:33)
[2022-04-08] MEDS: MELATONIN 3 MG TAB PO SCH ×2 (03:16→21:20)
[2022-04-08] MEDS ORDERED: ALBUMIN 25% 100 mL 25 GM/100 ML VIAL IV ONE (05:28)
[2022-04-08 06:26] LABS: BUN Creatinine Ratio 46.2 (10-20); Calcium 11.6 mg/dl (8.5-10.1); Creatinine Clr Calc Pharmacy 64.9 ml/min; Est GFR (Non-African American) 61.3 ml/min; Magnesium 2.3 mg/dl (1.7-2.4); Phosphorus 3.5 mg/dl (2.5-4.9); Potassium 3.9 mmol/L (3.5-5.1)
[2022-04-08 06:40] LABS: Hematocrit (blood only) 36.3 % (34.1-44.9); Hemoglobin 12.4 g/dl (12.0-16.0); Mean Corpuscular Hemoglobin 30.4 pg (25.0-34.0); Mean Corpuscular Hgb Conc 34.2 g/dL (32.0-36.0); Mean Platelet Volume 10.7 fL (9.4-12.3); Platelet Count 78 K/uL (130-400); RDW Coefficient of Variation 18.6 % (11.5-14.5); RDW Standard Deviation 56.5 fL (36.4-46.3); Red Blood Count 4.08 M/uL (3.93-5.22); White Blood Count 7.71 K/ul (4.8-10.8)
[2022-04-08 06:41] LABS: Platelet Estimate Decreased (Normal)
[2022-04-08] MEDS: LIDOCAINE 5% 1 PATCH TD SCH (08:24)
[2022-04-08] MEDS: MULTIVITAMIN TAB PO SCH (08:25)
[2022-04-08] MEDS: PARoxetine HCL 10 MG TAB PO SCH (08:25)
[2022-04-08] MEDS: POLYETHYLENE (MIRALAX) 17 GM PACK PO SCH (08:26)
--- NOTE | 2022-04-08 13:37 | Hospitalist Progress Note ---
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 She is being managed for the following: A. fib with RVR: History of such, on beta-vilma and Eliquis. Presented with 1 week history of weakness and shortness of breath on exertion. 03/27 echo: EF 45 to 50%. Mild global hypokinesis. Mild concentric LVH. A. fib with RVR. Status post IV diltiazem and IV beta-vilma. Could not tolerate IV Cardizem drip due to low blood pressure, heart rate was not responding even after digoxin. Heart rate remained elevated despite amiodarone. Status post cardioversion and reversal to sinus rhythm. Went back to A. fib with RVR with borderline low blood pressure. Cardiology on board, 03/30 cardioversion, 04/03 pacer with ventricular lead, 04/04 AV node ablation. Post ablation EKG with paced rhythm, patient with no chest pain. Continue to monitor over telemetry. Sinus in 80s upon tele review, Pt's eliquis was held overnight d/t concerns of encephalopathy/ro IC bleed, formal read on CT Head pending, will resume eliquis upon r/o IC bleed. Metoprolol/losartan on hold d/t soft BP. Hyponatremia: Admitting sodium of 121, as low as 119 earlier in admission. Likely secondary to poor p.o. intake. Nephrology on board, managing sodium level, Na 132 today. Patient does not like urea and has refused it. Patient w/ somewhat improving appetite. Nutrition Services Manager consulted. encourage protein intake, low sodium diet. Lasix on hold due to soft BP. Likely TIA: Post AV node ablation on 04/04/2022, patient was a stroke alert, apparently had right-sided facial droop with dysarthria and right-sided extremity weakness. 04/04 CT head was negative for any bleed. f/u CT Head 04/05 w/ no new acute findings. Received 300 Mg MS aspirin. Neurologically doing better. LDL 61. Neuro evaluated. Pt unable to have Brain MRI due to recent pacemaker placement per hospital policy per MRI department. Her other imagings as below: 04/05 CTA Head: 1. No acute infarct or intracranial hemorrhage. 2. No significant stenosis, occlusion, or aneurysm within the [place]. 04/05 CTA Neck: 1. No stenosis or dissection within the bilateral common carotid, cervical internal carotid or vertebral arteries. 2. Pathologic bilateral cervical lymphadenopathy, greater on the right. This is consistent with a neoplastic process and favors metastatic disease although lymphoma could appear similar. Potential primary neoplasm within the right palatine tonsils. These nodes would be amenable to ultrasound-guided biopsy. 3. Moderate to large right pleural effusion, partially imaged on this exam. Video swallow on her doesn't show aspiration but has esophageal dysmotility. Recommends GI consult. Diet recs would beeasy to chew, slippery, aspiration and reflux precautions. GI evaluated 04/07, no intervention for now; f/u w/ GI as OP. Cervical lymphadenopathy Concern for primary neoplasm within the right palatine tonsils Concern for neoplasm [see imaging on 04/05 CTA neck]. Pt made aware, RN in the room and communicated to him as well. Updated and discussed with oncology 04/07, patient does have a history of breast cancer though this was apparently early stage. Recommends CT scan of the chest/abdomen/pelvis. Also recommends MRI of brain with and without but it is not possible for MRI policy of our hospital. Recommends ENT consult for possible proximal aerodigestive check. Recommends cervical lymph node biopsy. 04/06 CT AP: Partially imaged pathologic mediastinal and left axillary LAD in conjunction with a few mesenteric nodules. Recommends oncologic work-up. Prior hysterectomy/soft tissue nodules abutting the vaginal cuff measure up to 4.3 x 2.9 cm. Left greater than right pleural effusion. 04/06 CT chest: 1. Supraclavicular, left axillary, and mediastinal lymphadenopathy likely representing metastatic disease or lymphoma. 2. Small bilateral pleural effusions most pronounced on the left. No pneumothorax status post thoracentesis. 3. Patchy groundglass airspace opacities seen throughout the majority of the right lower lobe. This could be due to an aspiration pneumonia or reexpansion pulmonary edema given the recent thoracentesis. 4. Small to moderate pericardial effusion. 5. Possible right posterior pleural soft tissue nodules. 6. Additional findings as described above. Oncology/pulmonology/ENT on board. Status post right thoracentesis 04/06, 1300 mL of serous fluid removed, follow-up with pleural studies. 04/07: Successful ultrasound-guided fine-needle aspiration and core needle biopsy of her left axillary lymph node. --> Follow-up with lymph node pathology. Pulmonary edema B/l Pleural effusion: Likely has acute diastolic heart failure secondary to A. fib with RVR. CXR suggestive of congestion and Rt > Lt pleural effusion. Patient on Lasix per nephrology for hyponatremia management. Patient maintaining on room air. Pulm on board: s/p Rt thoracentesis 04/06, 1300 mL of serous fluid removed. F/u w/ pleural studies. Weakness: Multifactorial complicated with poor appetite. PT/OT when able. Will likely need placement. Carbuncle/furuncle of trunk:: Status post antibiotic. Other chronic medical conditions: HTN --> continue home meds as and when able. DVT prophylaxis: Eliquis resumed CODE STATUS: Full code PT/OT, CM to assist w/ DC planning. Complicated course, pending stablization of BP, DC w/ onco recs and nephro recs. Admission and Anticipated Discharge Date Admission Date: March 26, 2022 Subjective Patient seen and examined at bedside as a follow-up of A. fib with RVR status post pacer and ablation, likely TIA on 04/04/2022 after ablation, hyponatremia and weakness. Pt was lying in bed, on room air, NAD, is s/p Lt axillary LN biopsy by radiology 04/07/22, reports breathing better after Rt thoracentesis 04/06, denies fever, chills, headache, chest pain, palpitations, sore throat. Per RN, overnight concerns of slurred speech/weakness/encephalopathy but pt oriented and ne urologically stable in AM exam, Per RN pt's appetite is on improving trend. Pt reports feeling better. Pt's BP on soft side, needed multiple IVF and IV albumin/midodrine overnight. Will continue to hold lasix. Speech re-evaluated w/ bedside swallow eval. No s/s of aspiration noted. Family at bedside, updated her grandson Elmo. Physical Exam Physical Exam: GENERAL: Alert and oriented x3. NAD, on RA. appears ill/frail/weak. HEENT: No pallor, no icterus. Pupils equal, round and reactive to light. Oral mucosa moist. NECK: No JVD, Rt > Lt cervical LAD. HEART: S1 and S2 heard. Regular rate and rhythm. No murmur, no gallop. RESPIRATORY SYSTEM: Normal AP diameter. No accessory muscle use. No wheezing, no crackles. Rt lung breath sounds improved. ABDOMEN: Soft, bowel sounds present, nontender, no distention. No face droop appreciated. intact eye closure and frowning. No dysarthria CENTRAL NERVOUS SYSTEM: Obeys simple commands. Moves extremities. EXTREMITIES: 1+ BLE edema, no erythema seen. No sensory loss or weakness noted. Results & Data Results & Data ([facility]) Vital Signs (Past 12 Hours) Vital Signs Temp Pulse Pulse Resp BP BP Pulse Ox 04/08/22 12:12 36.7 C 89 18 86/58 L 92 04/08/22 08:00 04/08/22 07:29 36.6 C 69 17 87/60 L 92 04/08/22 06:37 85/55 L 04/08/22 06:14 83/53 L 04/08/22 05:46 90/61 L 04/08/22 05:18 77/51 L 04/08/22 03:49 89/61 L 04/08/22 03:04 36.5 C 90 24 96/60 L 92 04/08/22 02:30 88/59 L 04/08/22 02:00 81/55 L 04/08/22 01:31 86/58 L O2 Del Method 04/08/22 12:12 Room Air 04/08/22 08:00 Room Air 04/08/22 07:29 Room Air 04/08/22 06:37 04/08/22 06:14 04/08/22 05:46 04/08/22 05:18 04/08/22 03:49 04/08/22 03:04 Room Air 04/08/22 02:30 04/08/22 02:00 04/08/22 01:31
--- NOTE | 2022-04-08 15:54 | CT Scan Report ---
CT head/brain wo con CLINICAL HISTORY: slurred speech Technique: Contiguous axial CT images of the head were acquired from the base of the skull to the jelena jagjit without intravenous contrast administration. Images were viewed in brain, subdural and bone [facility]. Automated dose lowering techniques and/or adjustment according to patient size were utilized for this exam. Comparison: Comparison is made to CT head 04/05/2022 Findings: Areas of decreased attenuation are present in the periventricular and subcortical white matter bilate rally consistent with small vessel ischemic disease. Generalized cerebral atrophy with commensurate e nlargement of the ventricles, sulci, and cisterns is also present. There is no acute intracranial hem orrhage or evidence of acute territorial infarction. No shift of the midline structures, mass effect, or extra-axial abnormalities are shown. Atherosclerotic calcifications are present in the intracran ial segments of the internal carotid arteries. Imaged portions of the paranasal sinuses and mastoid air cells are clear. The orbits appear normal. There are no acute fractures of the calvaria or scalp swelling. There is suggestion of right sided l ymphadenopathy, similar to prior exam. Impression: No acute intracranial hemorrhage, no evidence of acute territorial infarction or other acute intracra nial disease process. ACT 112: Negative or not required by law. Electronically signed by: José Neil M.D. 04/08/2022 3:52 PM
[2022-04-08] MEDS: APIXABAN 5 MG TABLET PO SCH ×2 (17:28→21:20)
[2022-04-08] MEDS: MIDODRINE HCL 2.5 MG TAB PO SCH (18:21)
[2022-04-09 06:24] LABS: Hematocrit (blood only) 39.9 % (34.1-44.9); Hemoglobin 13.4 g/dl (12.0-16.0); Mean Corpuscular Hemoglobin 30.2 pg (25.0-34.0); Mean Corpuscular Hgb Conc 33.6 g/dL (32.0-36.0); Mean Corpuscular Volume 90.1 fL (80.0-100.0); Platelet Count 74 K/uL (130-400); RDW Coefficient of Variation 18.7 % (11.5-14.5); Red Blood Count 4.43 M/uL (3.93-5.22); White Blood Count 7.35 K/ul (4.8-10.8)
[2022-04-09 06:54] LABS: BUN Creatinine Ratio 66.7 (10-20); Calcium 11.7 mg/dl (8.5-10.1); Creatinine Clr Calc Pharmacy 104.8 ml/min; Est GFR (African American) 104.4 ml/min; Potassium 3.4 mmol/L (3.5-5.1)
[2022-04-09] MEDS: PARoxetine HCL 10 MG TAB PO SCH (07:45)
[2022-04-09] MEDS: MIDODRINE HCL 2.5 MG TAB PO SCH ×3 (07:45→17:45)
[2022-04-09] MEDS: MULTIVITAMIN TAB PO SCH (07:45)
[2022-04-09] MEDS: APIXABAN 5 MG TABLET PO SCH ×2 (07:46→20:38)
[2022-04-09] MEDS: LIDOCAINE 5% 1 PATCH TD SCH (07:46)
[2022-04-09] MEDS ORDERED: POTASSIUM CHLORIDE 20 MEQ/15 ML UDC PO STA (08:02)
[2022-04-09] MEDS: METOPROLOL SUCC 25MG EXT REL TAB PO SCH ×2 (09:21→10:24)
--- NOTE | 2022-04-09 13:32 | Nephrology Progress Note ---
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 Subjective Got Pacemaker. Got AV Ablation . Had Pleural tap and 1300 ml removed. Has pedal edema. Now being worked for ?/ Lymphoma. also BP running much lower and also appears much weaker. Review of Systems Review of Systems: All systems reviewed & are unremarkable except as noted in HPI & below Physical Exam Physical Exam: GENERAL: Elderly white female who is in mild respiratory distress. HEENT: Mucous membrane is dry. NECK: Supple, difficult to asses JVD due to body habitus. CHEST:+Diminished lung sounds and + crackles (Minimal crackles at the bases CARDIOVASCULAR: S1 and S2, regular. ABDOMEN: Soft, nontender. EXTREMITIES:1+ bilateral pedal edema. NEUROLOGICALLY: Awake, alert, oriented x3, normal speech. Moving all 4 extremities Results & Data ([facility]) Vital Signs (Past 12 Hours) Vital Signs Temp Pulse Pulse Pulse Resp BP BP 04/09/22 11:10 36.6 C 60 17 94/61 L 04/09/22 08:00 04/09/22 08:00 90 04/09/22 07:53 36.4 C L 90 17 96/66 L 04/09/22 03:00 36.8 C 90 14 102/62 Pulse Ox O2 Del Method 04/09/22 11:10 92 Room Air 04/09/22 08:00 Room Air 04/09/22 08:00 04/09/22 07:53 91 Room Air 04/09/22 03:00 92 Room Air
[2022-04-09] MEDS ORDERED: POTASSIUM CHLORIDE CRTAB 20 MEQ TABCR PO STA (14:27)
--- NOTE | 2022-04-09 14:38 | Hospitalist Progress Note ---
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 fib with RVR: History of such, on beta-vilma and Eliquis. Presented with 1 week history of weakness and shortness of breath on exertion. 03/27 echo: EF 45 to 50%. Mild global hypokinesis. Mild concentric LVH. A. fib with RVR. Status post IV diltiazem and IV beta-vilma. Could not tolerate IV Cardizem drip due to low blood pressure, heart rate was not responding even after digoxin. Heart rate remained elevated despite amiodarone. Status post cardioversion and reversal to sinus rhythm. Went back to A. fib with RVR with borderline low blood pressure. Cardiology on board, 03/30 cardioversion, 04/03 pacer with ventricular lead, 04/04 AV node ablation. Post ablation EKG with paced rhythm, patient with no chest pain. Continue to monitor over telemetry. c/w eliquis. Metoprolol/losartan on hold d/t soft BP---> will resume metoprolol today, continue to monitor. Hyponatremia: Admitting sodium of 121, as low as 119 earlier in admission. Likely secondary to poor p.o. intake. Nephrology on board, managing sodium level, Na 132 today. Patient does not like urea and has refused it. Patient w/ somewhat improving appetite. 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 encourage protein intake, low sodium diet. Lasix on hold due to soft BP. Likely TIA: Post AV node ablation on 04/04/2022, patient was a stroke alert, apparently had right-sided facial droop with dysarthria and right-sided extremity weakness. 04/04 CT head was negative for any bleed. f/u CT Head 04/05 w/ no new acute findings. Received 300 Mg PA aspirin. Neurologically doing better. LDL 61. Neuro evaluated. Pt unable to have Brain MRI due to recent pacemaker placement per hospital policy per MRI department. Her other imagings as below: 04/05 CTA Head: 1. No acute infarct or intracranial hemorrhage. 2. No significant stenosis, occlusion, or aneurysm within the [place]. 04/05 CTA Neck: 1. No stenosis or dissection within the bilateral common carotid, cervical internal carotid or vertebral arteries. 2. Pathologic bilateral cervical lymphadenopathy, greater on the right. This is consistent with a neoplastic process and favors metastatic disease although lymphoma could appear similar. Potential primary neoplasm within the right palatine tonsils. These nodes would be amenable to ultrasound-guided biopsy. 3. Moderate to large right pleural effusion, partially imaged on this exam. Video swallow on her doesn't show aspiration but has esophageal dysmotility. Recommends GI consult. Diet recs would beeasy to chew, slippery, aspiration and reflux precautions. GI evaluated 04/07, no intervention for now; f/u w/ GI as OP. Cervical lymphadenopathy Concern for primary neoplasm within the right palatine tonsils Concern for neoplasm [see imaging on 04/05 CTA neck]. Pt made aware, RN in the room and communicated to him as well. Updated and discussed with oncology 04/07, patient does have a history of breast cancer though this was apparently early stage. Recommends CT scan of the chest/abdomen/pelvis. Also recommends MRI of brain with and without but it is not possible for MRI policy of our hospital. Recommends ENT consult for possible proximal aerodigestive check. Recommends cervical lymph node biopsy. 04/06 CT AP: Partially imaged pathologic mediastinal and left axillary LAD in conjunction with a few mesenteric nodules. Recommends oncologic work-up. Prior hysterectomy/soft tissue nodules abutting the vaginal cuff measure up to 4.3 x 2.9 cm. Left greater than right pleural effusion. 04/06 CT chest: 1. Supraclavicular, left axillary, and mediastinal lymphadenopathy likely re presenting metastatic disease or lymphoma. 2. Small bilateral pleural effusions most pronounced on the left. No pneumothorax status post thoracentesis. 3. Patchy groundglass airspace opacities seen throughout the majority of the right lower lobe. This could be due to an aspiration pneumonia or reexpansion pulmonary edema given the recent thoracentesis. 4. Small to moderate pericardial effusion. 5. Possible right posterior pleural soft tissue nodules. 6. Additional findings as described above. Oncology/pulmonology/ENT on board. Status post right thoracentesis 04/06, 1300 mL of serous fluid removed, follow-up with pleural studies. Pl fl patho w/ no malig cells. 04/07: Successful ultrasound-guided fine-needle aspiration and core needle biopsy of her left axillary lymph node. --> Follow-up with lymph node pathology. Pulmonary edema B/l Pleural effusion: Likely has acute diastolic heart failure secondary to A. fib with RVR. CXR suggestive of congestion and Rt > Lt pleural effusion. Patient on Lasix per nephrology for hyponatremia management. Patient maintaining on room air. Pulm on board: s/p Rt thoracentesis 04/06, 1300 mL of serous fluid removed. F/u w/ pleural studies. Pt reports feeling better w/ breathing after thoracentesis. Weakness: Multifactorial complicated with poor appetite. PT/OT when able. Will likely need placement. Carbuncle/furuncle of trunk:: Status post antibiotic. Other chronic medical conditions: HTN --> continue home meds as and when able. DVT prophylaxis: Eliquis resumed CODE STATUS: Full code PT/OT, CM to assist w/ DC planning. likely can dc to placement. pt's dtr smita updated over phone, About 10 min spent. Answered all her questions to satisfaction. Admission and Anticipated Discharge Date Admission Date: March 26, 2022 Subjective Patient seen and examined at bedside as a follow-up of A. fib with RVR status post pacer and ablation, likely TIA on 04/04/2022 after ablation, hyponatremia and weakness. Pt was lying in bed, on room air, NAD, is s/p Lt axillary LN biopsy by radiology 04/07/22, reports breathing better after Rt thoracentesis 04/06, denies fever, chills, headache, chest pain, palpitations, sore throat. Denies any new acute events overnight. Pt reports feeling better. Pt's BP on soft side and is on midodrine. Physical Exam Physical Exam: GENERAL: Alert and oriented x3. NAD, on RA. appears ill/frail/weak. HEENT: No pallor, no icterus. Pupils equal, round and reactive to light. Oral mucosa moist. NECK: No JVD, Rt > Lt cervical LAD. HEART: S1 and S2 heard. Regular rate and rhythm. No murmur, no gallop. RESPIRATORY SYSTEM: Normal AP diameter. No accessory muscle use. No wheezing, no crackles. Rt lung breath sounds improved. ABDOMEN: Soft, bowel sounds present, nontender, no distention. No face droop appreciated. intact eye closure and frowning. No dysarthria CENTRAL NERVOUS SYSTEM: Obeys simple commands. Moves extremities. EXTREMITIES: 1+ BLE edema, no erythema seen. No sensory loss or weakness noted. ?new ble erythema Results & Data Results & Data ([facility]) Vital Signs (Past 12 Hours) Vital Signs Temp Pulse Pulse Pulse Resp BP BP 04/09/22 11:10 36.6 C 60 17 94/61 L 04/09/22 08:00 04/09/22 08:00 90 04/09/22 07:53 36.4 C L 90 17 96/66 L 04/09/22 03:00 36.8 C 90 14 102/62 Pulse Ox O2 Del Method 04/09/22 11:10 92 Room Air 04/09/22 08:00 Room Air 04/09/22 08:00 04/09/22 07:53 91 Room Air 04/09/22 03:00 92 Room Air
[2022-04-09] MEDS ORDERED: LORazepam 0.5 MG TAB PO STA (20:18)
[2022-04-09] MEDS: MELATONIN 3 MG TAB PO SCH (20:38)
[2022-04-10 06:34] LABS: Calcium 11.8 mg/dl (8.5-10.1); Creatinine Clr Calc Pharmacy 142.3 ml/min; Est GFR (African American) 115.4 ml/min; Est GFR (Non-African American) 99.6 ml/min; Magnesium 2.1 mg/dl (1.7-2.4); Potassium 4.3 mmol/L (3.5-5.1)
[2022-04-10] MEDS: APIXABAN 5 MG TABLET PO SCH ×2 (09:08→20:09)
[2022-04-10] MEDS: PARoxetine HCL 10 MG TAB PO SCH (09:09)
[2022-04-10] MEDS: LIDOCAINE 5% 1 PATCH TD SCH (09:09)
[2022-04-10] MEDS: POT PHOSPHATE MONOBASIC W/ SOD TAB PO SCH ×4 (09:09→20:10)
[2022-04-10] MEDS: METOPROLOL SUCC 25MG EXT REL TAB PO SCH (09:09)
[2022-04-10] MEDS: MULTIVITAMIN TAB PO SCH (09:10)
[2022-04-10] MEDS: MIDODRINE HCL 2.5 MG TAB PO SCH ×2 (09:10→12:08)
--- NOTE | 2022-04-10 13:47 | Hospitalist Progress Note ---
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 She is being managed for the following: A. fib with RVR: History of such, on beta-vilma and Eliquis. Presented with 1 week history of weakness and shortness of breath on exertion. 03/27 echo: EF 45 to 50%. Mild global hypokinesis. Mild concentric LVH. A. fib with RVR. Status post IV diltiazem and IV beta-vilma. Could not tolerate IV Cardizem drip due to low blood pressure, heart rate was not responding even after digoxin. Heart rate remained elevated despite amiodarone. Status post cardioversion and reversal to sinus rhythm. Went back to A. fib with RVR with borderline low blood pressure. Cardiology on board, 03/30 cardioversion, 04/03 pacer with ventricular lead, 04/04 AV node ablation. Post ablation EKG with paced rhythm, patient with no chest pain. Continue to monitor over telemetry. c/w eliquis. Metoprolol/losartan on hold d/t soft BP---> metoprolol resumed 04/09, continue to monitor. f/u cardio as OP. Hyponatremia: Admitting sodium of 121, as low as 119 earlier in admission. Likely secondary to poor p.o. intake. Nephrology on board, managing sodium level, Na 132 today. Patient does not like urea and has refused it. Patient w/ somewhat improving appetite. Tree Marker consulted. encourage protein intake, low sodium diet. Lasix on hold due to soft BP. Na maintaining consistency above 130. Likely TIA: Post AV node ablation on 04/04/2022, patient was a stroke alert, apparently had right-sided facial droop with dysarthria and right-sided extremity weakness. 04/04 CT head was negative for any bleed. f/u CT Head 04/05 w/ no new acute findings. Received 300 Mg [place] aspirin. Neurologically doing better. LDL 61. Neuro evaluated. Pt unable to have Brain MRI due to recent pacemaker placement per hospital policy per MRI department. Her other imagings as below: 04/05 CTA Head: 1. No acute infarct or intracranial hemorrhage. 2. No significant stenosis, occlusion, or aneurysm within the [place] of [place]. 04/05 CTA Neck: 1. No stenosis or dissection within the bilateral common carotid, cervical internal carotid or vertebral arteries. 2. Pathologic bilateral cervical lymphadenopathy, greater on the right. This is consistent with a neoplastic process and favors metastatic disease although lymphoma could appear similar. Potential primary neoplasm within the right palatine tonsils. These nodes would be amenable to ultrasound-guided biopsy. 3. Moderate to large right pleural effusion, partially imaged on this exam. Video swallow on her doesn't show aspiration but has esophageal dysmotility. Recommends GI consult. Diet recs would beeasy to chew, slippery, aspiration and reflux precautions. GI evaluated 04/07, no intervention for now; f/u w/ GI as OP. Cervical lymphadenopathy Concern for primary neoplasm within the right palatine tonsils Concern for neoplasm [see imaging on 04/05 CTA neck]. Pt made aware, RN in the room and communicated to him as well. Updated and discussed with oncology 04/07, patient does have a history of breast cancer though this was apparently early stage. Recommends CT scan of the chest/abdomen/pelvis. Also recommends MRI of brain with and without but it is not possible for MRI policy of our hospital. Recommends ENT consult for possible proximal aerodigestive check. Recommends cervical lymph node biopsy. 04/06 CT AP: Partially imaged pathologic mediastinal and left axillary LAD in conjunction with a few mesenteric nodules. Recommends oncologic work-up. Prior hysterectomy/soft tissue nodules abutting the vaginal cuff measure up to 4.3 x 2.9 cm. Left greater than right pleural effusion. 04/06 CT chest: 1. Supraclavicular, left axillary, and mediastinal lymphadenopathy likely representing metastatic disease or lymphoma. 2. Small bilateral pleural effusions most pronounced on the left. No pneumothorax status post thoracentesis. 3. Patchy groundglass airspace opacities seen throughout the majority of the right lower lobe. This could be due to an aspiration pneumonia or reexpansion pulmonary edema given the recent thoracentesis. 4. Small to moderate pericardial effusion. 5. Possible right posterior pleural soft tissue nodules. 6. Additional findings as described above. Oncology/pulmonology/ENT on board. Status post right thoracentesis 04/06, 1300 mL of serous fluid removed, follow-up with pleural studies. Pl fl patho w/ no malig cells. 04/07: Successful ultrasound-guided fine-needle aspiration and core needle biopsy of her left axillary lymph node. --> Follow-up with lymph node pathology. F/u w/ oncology as OP. Pulmonary edema B/l Pleural effusion: Likely has acute diastolic heart failure secondary to A. fib with RVR. CXR suggestive of congestion and Rt > Lt pleural effusion. Patient on Lasix per nephrology for hyponatremia management. Patient maintaining on room air. Pulm on board: s/p Rt thoracentesis 04/06, 1300 mL of serous fluid removed. F/u w/ pleural studies. Pt reports feeling better w/ breathing after thoracentesis. Weakness: Multifactorial complicated with poor appetite. PT/OT when able. Will likely need placement. Carbuncle/furuncle of trunk:: Status post antibiotic. Other chronic medical conditions: HTN --> continue home meds as and when able. DVT prophylaxis: Eliquis resumed CODE STATUS: Full code PT/OT, CM to assist w/ DC planning. likely can dc to placement. pt's dtr smita updated over phone, About 10 min spent. Answered all her questions to satisfaction. Admission and Anticipated Discharge Date Admission Date: March 26, 2022 Subjective Patient seen and examined at bedside as a follow-up of A. fib with RVR status post pacer and ablation, likely TIA on 04/04/2022 after ablation, hyponatremia and weakness. Pt was lying in bed, on room air, NAD, is s/p Lt axillary LN biopsy by radiology 04/07/22, reports breathing better after Rt thoracentesis 04/06, denies fever, chills, headache, chest pain, palpitations, sore throat. Denies any new acute events overnight. Pt reports feeling better. Pt's BP is getting better, pt already started on home metoprolol yesterday. Physical Exam Physical Exam: GENERAL: Alert and oriented x3. NAD, on RA. appears ill/frail/weak. HEENT: No pallor, no icterus. Pupils equal, round and reactive to light. Oral mucosa moist. NECK: No JVD, Rt > Lt cervical LAD. HEART: S1 and S2 heard. Regular rate and rhythm. No murmur, no gallop. RESPIRATORY SYSTEM: Normal AP diameter. No accessory muscle use. No wheezing, no crackles. Rt lung breath sounds improved. ABDOMEN: Soft, bowel sounds present, nontender, no distention. No face droop appreciated. intact eye closure and frowning. No dysarthria CENTRAL NERVOUS SYSTEM: Obeys simple commands. Moves extremities. EXTREMITIES: 1+/trace BLE edema, no erythema seen. No sensory loss or weakness noted. Results & Data Results & Data ([facility]) Vital Signs (Past 12 Hours) Vital Signs Temp Pulse Resp BP Pulse Ox O2 Del Method 04/10/22 11:51 36.5 C 89 28 H 111/73 93 Room Air 04/10/22 10:13 Room Air 04/10/22 07:00 36.5 C 88 30 H 100/62 93 Room Air 04/10/22 03:00 37 C 89 16 94/67 L 90 Room Air
--- NOTE | 2022-04-10 15:20 | Nephrology Progress Note ---
Date of Service April 10, 2022 Assessment & Plan (1) Chronic hyponatremia: Plan: Hypervolemic hyponatremia with likely background SIADH >> sNa plateaud at 132 x 72 hrs now; K remains acceptable na did improve a bit after some iv lasix; edema OK lasix is now on hold since 04/07 mid afternoon because of Low BP cotn to hold for now cont 1.2L fluid limit (2) Disorder of fluid or electrolyte: Plan: also w/ hypercalcemia and hypophosphatemia > on phos repletion. TSH wnl. >suspect hypercalcemia from lymphoma/granulomatous; climbing slowly; no indication for fluids at this time -f/u bx -ordered PTH, 25 OHD, 1, 25 dihydroxy D, PTHrp, iCa for am Admission and Anticipated Discharge Date Admission Date: March 26, 2022 Subjective tired but feels a bit better ovrall and that swelling improved. grandson at bedside; denies sob, abd pain, n/v Review of Systems Review of Systems: All systems reviewed & are unremarkable except as noted in Subjective Physical Exam Constitutional: well developed, well nourished, + frail appearing and cooperative; no acute distress Eyes: EOM intact bilaterally ENMT: Ears: no external ear abnormality Nose: no external nose abnormality Mouth: + dry oral mucous membranes Neck: no nuchal rigidity Respiratory: normal respiratory effort Auscultation: + diminished lung sounds (mary bl bases and diminished air mvt throughout) and + crackles (fine 1/[address]) Cardiovascular: Rate/Rhythm: regular rate and regular rhythm Extremities: + edema (trace) Gastrointestinal (Abdomen): Inspection/Auscultation: normal bowel sounds Percussion/Palpation: abdomen soft; abdomen nontender Musculoskeletal: Extremities: strength 5/5 throughout (2 person assist to lean forward) Skin: no rashes, warm and dry Neurologic: urena, fluent speech, no tremor Psychiatric: Orientation: oriented x 3 Results & Data ([facility]) Vital Signs (Past 12 Hours) Vital Signs Temp Pulse Pulse Resp BP Pulse Ox O2 Del Method 04/10/22 15:00 89 04/10/22 11:51 36.5 C 89 28 H 111/73 93 Room Air 04/10/22 10:13 Room Air 04/10/22 07:00 36.5 C 88 30 H 100/62 93 Room Air Laboratory Results 04/09/22 05:16 11/07/22 05:46
[2022-04-10] MEDS: MELATONIN 3 MG TAB PO SCH (20:12)
[2022-04-11 06:39] LABS: BUN Creatinine Ratio 67.3 (10-20); Calcium 11.3 mg/dl (8.5-10.1); Est GFR (African American) 107.6 ml/min; Est GFR (Non-African American) 92.8 ml/min; Phosphorus 3.3 mg/dl (2.5-4.9)
[2022-04-11] MEDS: APIXABAN 5 MG TABLET PO SCH ×2 (09:05→19:47)
[2022-04-11] MEDS: METOPROLOL SUCC 25MG EXT REL TAB PO SCH (09:07)
[2022-04-11] MEDS: MULTIVITAMIN TAB PO SCH (09:10)
[2022-04-11] MEDS: PARoxetine HCL 10 MG TAB PO SCH (09:10)
[2022-04-11] MEDS: LIDOCAINE 5% 1 PATCH TD SCH (09:11)
--- NOTE | 2022-04-11 13:32 | Nephrology Progress Note ---
Date of Service April 11, 2022 Assessment & Plan (1) Chronic hyponatremia: Plan: Hypervolemic hyponatremia with likely background SIADH >> sNa plateaud at 132 x 72 hrs then up to 135 today with diuretics on hold since 04/07; K remains acceptable na did improve a bit after some iv lasix; edema OK lasix is now on hold since 04/07 mid afternoon because of Low BP cotn to hold for now -with slight increase in work of breathing (though pulm exam improved) -liberalized fluid limit to 1.5L -started lasix 20 mg daily starting tomorrow -continue lower sodium diet -K acceptable -daily bmp (2) Disorder of fluid or electrolyte: Plan: also w/ hypercalcemia and hypophosphatemia > on phos repletion on 04/10; phos now repleted. TSH wnl. >suspect hypercalcemia from lymphoma/granulomatous; climbing slowly; no indication for fluids at this time -would not use bisphosphonate until phos consistently repleted and Ca a bit higher (risk of hypocalcemia) -f/u bx -ordered PTH, 25 OHD, 1, 25 dihydroxy D, PTHrp, iCa for am Admission and Anticipated Discharge Date Admission Date: March 26, 2022 Subjective no acute interval events clinically. denies sob; + thirst; feels edema continues to improve; states she has a pain patch in her groin which is helping Review of Systems Review of Systems: All systems reviewed & are unremarkable except as noted in Subjective Physical Exam Constitutional: well developed, well nourished, + frail appearing and cooperative; no acute distress Eyes: EOM intact bilaterally ENMT: Ears: no external ear abnormality Nose: no external nose abnormality Mouth: + dry oral mucous membranes Neck: no nuchal rigidity Respiratory: normal respiratory effort Auscultation: + diminished lung sounds (mary bl bases and diminished air mvt throughout) Cardiovascular: Rate/Rhythm: regular rate and regular rhythm Extremities: + edema (trace) Gastrointestinal (Abdomen): Inspection/Auscultation: normal bowel sounds Percussion/Palpation: abdomen soft; abdomen nontender Musculoskeletal: Extremities: strength 5/5 throughout (maneuvers to sit up on side of bed) Skin: no rashes, warm and dry Psychiatric: Orientation: oriented x 3 Genitourinary: galarza w/ tona urine Results & Data ([facility]) Vital Signs (Past 12 Hours) Vital Signs Temp Pulse Pulse Resp BP Pulse Ox O2 Del Method 04/11/22 10:55 36.4 C L 89 18 94/65 L 91 Room Air 04/11/22 08:00 Room Air 04/11/22 09:00 89 107/74 04/11/22 07:55 36.6 C 89 18 93/64 L 92 Room Air 04/11/22 03:12 36.5 C 88 18 112/76 91 Room Air Laboratory Results 04/09/22 05:16 04/11/22 05:38 iPTH, 25 OH reviewed
--- NOTE | 2022-04-11 15:08 | Hospitalist Progress Note ---
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 She is being managed for the following: A. fib with RVR: History of such, on beta-vilma and Eliquis. Presented with 1 week history of weakness and shortness of breath on exertion. 03/27 echo: EF 45 to 50%. Mild global hypokinesis. Mild concentric LVH. A. fib with RVR. Status post IV diltiazem and IV beta-vilma. Could not tolerate IV Cardizem drip due to low blood pressure, heart rate was not responding even after digoxin. Heart rate remained elevated despite amiodarone. Status post cardioversion and reversal to sinus rhythm. Went back to A. fib with RVR with borderline low blood pressure. Cardiology on board, 03/30 cardioversion, 04/03 pacer with ventricular lead, 04/04 AV node ablation. Post ablation EKG with paced rhythm, patient with no chest pain. Continue to monitor over telemetry. c/w eliquis. Metoprolol/losartan on hold d/t soft BP---> metoprolol resumed 04/09, continue to monitor. f/u cardio as OP. Heart rate is well controlled and CHF seems to be improved Remains very weak and lethargic secondary to multiple medical problems Hyponatremia: Admitting sodium of 121, as low as 119 earlier in admission. Likely secondary to poor p.o. intake. Nephrology on board, managing sodium level, Na 132 today. Patient does not like urea and has refused it. Patient w/ somewhat improving appetite. Craft Manager consulted. encourage protein intake, low sodium diet. Lasix on hold due to soft BP. Na maintaining consistency above 130. Sodium level has gone up to 135 Small dose of oral Lasix will be started from tomorrow with potassium supplement Likely TIA: Post AV node ablation on 04/04/2022, patient was a stroke alert, apparently had right-sided facial droop with dysarthria and right-sided extremity weakness. 04/04 CT head was negative for any bleed. f/u CT Head 04/05 w/ no new acute findings. Received 300 Mg ID aspirin. Neurologically doing better. LDL 61. Neuro evaluated. Pt unable to have Brain MRI due to recent pacemaker placement per hospital policy per MRI department. Her other imagings as below: 04/05 CTA Head: 1. No acute infarct or intracranial hemorrhage. 2. No significant stenosis, occlusion, or aneurysm within the [place]. 04/05 CTA Neck: 1. No stenosis or dissection within the bilateral common carotid, cervical internal carotid or vertebral arteries. 2. Pathologic bilateral cervical lymphadenopathy, greater on the right. This is consistent with a neoplastic process and favors metastatic disease although lymphoma could appear similar. Potential primary neoplasm within the right palatine tonsils. These nodes would be amenable to ultrasound-guided biopsy. 3. Moderate to large right pleural effusion, partially imaged on this exam. Video swallow on her doesn't show aspiration but has esophageal dysmotility. Recommends GI consult. Diet recs would beeasy to chew, slippery, aspiration and reflux precautions. GI evaluated 04/07, no intervention for now; f/u w/ GI as OP. Remains very weak and lethargic and will continue to have PT and OT evaluation Cervical lymphadenopathy Concern for primary neoplasm within the right palatine tonsils Concern for neoplasm [see imaging on 04/05 CTA neck]. Pt made aware, RN in the room and communicated to him as well. Updated and discussed with oncology 04/07, patient does have a history of breast cancer though this was apparently early stage. Recommends CT scan of the chest/abdomen/pelvis. Also recommends MRI of brain with and without but it is not possible for MRI policy of our hospital. Recommends ENT consult for possible proximal aerodigestive check. Recommends cervical lymph node biopsy. 04/06 CT AP: Partially imaged pathologic mediastinal and left axillary LAD in conjunction with a few mesenteric nodules. Recommends oncologic work-up. Prior hysterectomy/soft tissue nodules abutting the vaginal cuff measure up to 4.3 x 2.9 cm. Left greater than right pleural effusion. 04/06 CT chest: 1. Supraclavicular, left axillary, and mediastinal lymphadenopathy likely representing metastatic disease or lymphoma. 2. Small bilateral pleural effusions most pronounced on the left. No pneumothorax status post thoracentesis. 3. Patchy groundglass airspace opacities seen throughout the majority of the right lower lobe. This could be due to an aspiration pneumonia or reexpansion pulmonary edema given the recent thoracentesis. 4. Small to moderate pericardial effusion. 5. Possible right posterior pleural soft tissue nodules. 6. Additional findings as described above. Oncology/pulmonology/ENT on board. Status post right thoracentesis 04/06, 1300 mL of serous fluid removed, follow-up with pleural studies. Pl fl patho w/ no malig cells. 04/07: Successful ultrasound-guided fine-needle aspiration and core needle biopsy of her left axillary lymph node. --> Follow-up with lymph node pathology. F/u w/ oncology as OP. Calcium remains elevated at more than 11 likely secondary to possible lymphoma Will observe for now Pulmonary edema B/l Pleural effusion: Likely has acute diastolic heart failure secondary to A. fib with RVR. CXR suggestive of congestion and Rt > Lt pleural effusion. Patient on Lasix per nephrology for hyponatremia management. Patient maintaining on room air. Pulm on board: s/p Rt thoracentesis 04/06, 1300 mL of serous fluid removed. F/u w/ pleural studies. -Pleural aspirate is transudative likely from CHF Pt reports feeling better w/ breathing after thoracentesis. Weakness: Multifactorial complicated with poor appetite. PT/OT when able. Will likely need placement. She has been accepted to [facility] Remains very weak and lethargic to be transferred today Carbuncle/furuncle of trunk:: Status post antibiotic. Other chronic medical conditions: HTN --> continue home meds as and when able. DVT prophylaxis: Eliquis resumed CODE STATUS: Full code PT/OT, CM to assist w/ DC planning. likely can dc to placement. Discussed with the daughter and likely transfer tomorrow Admission and Anticipated Discharge Date Admission Date: March 26, 2022 Subjective 04/11/2022 The patient was seen and examined in telemetry unit She has been very weak and lethargic today and did not participate in physical therapy Denies any chest pain or palpitation Her blood pressure remains on the lower side at 94/65 Review of Systems Review of Systems: All systems reviewed and are unremarkable except as noted below Respiratory: Minimal shortness of breath at rest Neurologic: Generalized weakness Physical Exam Physical Exam: Sitting on a chair with very lethargic Constitutional: well developed, well nourished, + ill appearing and + obese Eyes: PERRL, conjunctivae normal, anicteric sclerae ENMT: external ear and nose normal, oropharynx normal Neck: trachea midline, no thyromegaly Respiratory: no respiratory distress Auscultation: + diminished lung sounds and + crackles (Minimal crackles at the bases) Cardiovascular: Rate/Rhythm: regular rate, regular rhythm and + irregularly irregular; not tachycardic Heart Sounds: normal S1 and normal S2; no murmur Extremities: + edema (Trace edema bilaterally) Gastrointestinal (Abdomen): Inspection/Auscultation: normal bowel sounds; abdomen not distended Percussion/Palpation: abdomen soft; abdomen nontender Musculoskeletal: No acute arthritis in any joint Neurologic: normal touch/pain/proprioception and moves all extremities; no focal motor deficits Psychiatric: A+Ox3, euthymic affect Lymphatic: no cervical or axillary lymphadenopathy Results & Data Results & Data ([facility]) Vital Signs (Past 12 Hours) Vital Signs Temp Pulse Pulse Resp BP Pulse Ox O2 Del Method 04/11/22 10:55 36.4 C L 89 18 94/65 L 91 Room Air 04/11/22 08:00 Room Air 04/11/22 09:00 89 107/74 04/11/22 07:55 36.6 C 89 18 93/64 L 92 Room Air 04/11/22 03:12 36.5 C 88 18 112/76 91 Room Air Laboratory Results [facility] 04/11/22 05:38 Sodium 135 L Potassium 4.0 Chloride 97 L Carbon Dioxide 32 BUN 35 H Creatinine 0.52 L Glucose 146 H Calcium 11.3 H Medications Administered Current Inpatient Medications Acetaminophen (Acetaminophen 500 Mg Tab) 1,000 mg PO Q8H PRN PRN Reason: Pain Stop: 04/29/22 14:02 Last Admin: 04/06/22 21:24 Dose: 1,000 mg Apixaban (Apixaban 5 Mg Tablet) 5 mg PO BID LINDA Stop: 05/07/22 20:59 Last Admin: 04/11/22 09:05 Dose: 5 mg Furosemide (Furosemide 40 Mg/4 Ml Vial) 40 mg IV TID LINDA Stop: 05/06/22 15:14 Last Admin: 04/07/22 21:22 Dose: Not Given Furosemide (Furosemide 20 Mg Tab) 20 mg PO QAM LINDA Stop: 05/12/22 08:59 Lidocaine (Lidocaine 5% 1 Patch) 1 patch TD QAM LINDA Stop: 05/03/22 10:29 Last Admin: 04/11/22 09:11 Dose: 1 patch Losartan Potassium (Losartan Potassium 25 Mg Tab) 25 mg PO DAILY LINDA Stop: 04/26/22 08:59 Last Admin: 04/07/22 08:14 Dose: 25 mg Melatonin (Melatonin 3 Mg Tab) 6 mg PO HS LINDA Stop: 05/07/22 20:59 Last Admin: 04/10/22 20:12 Dose: 6 mg Metoprolol Succinate (Metoprolol Succ 25mg Ext Rel Tab) 25 mg PO DAILY LINDA Stop: 05/07/22 08:59 Last Admin: 04/11/22 09:07 Dose: 25 mg Metoprolol Tartrate (Metoprolol Tartrate 1 Mg/Ml Vial) 5 mg IV Q2H PRN PRN Reason: Tachycardia Stop: 04/25/22 21:59 Last Admin: 04/04/22 05:09 Dose: 5 mg Miscellaneous (Remove Lidoderm Patch) 1 each N/A DAILY@2100 [facility] Stop: 05/03/22 20:59 Last Admin: 04/10/22 20:17 Dose: 1 each Morphine Sulfate (Morphine Sulfate 2 Mg/Ml Carp) 1 mg IV Q6H PRN PRN Reason: Severe Pain Stop: 04/18/22 17:16 Last Admin: 04/04/22 17:41 Dose: 1 mg Multivitamins (Multivitamin Tab) 1 tab PO QAM LINDA Stop: 04/26/22 08:59 Last Admin: 04/11/22 09:10 Dose: 1 tab Nystatin (Nystatin Powder 15gm Btl) 1 appln EXT BID [facility] Stop: 05/11/22 20:59 Paroxetine HCl (Paroxetine Hcl 10 Mg Tab) 10 mg PO DAILY [facility] Stop: 04/27/22 12:44 Last Admin: 04/11/22 09:10 Dose: 10 mg Potassium Chloride (Potassium Chloride Crtab 20 Meq Tabcr) 20 meq PO BID [facility] Stop: 04/28/22 08:59 Last Admin: 04/03/22 17:07 Dose: Not Given
--- NOTE | 2022-04-11 18:12 | XRay Report ---
XR chest 1V portable HISTORY: Congestive heart failure. Shortness of breath. COMPARISON: Chest 04/06/2022. FINDINGS: No pneumothorax. The heart is enlarged. There is a left-sided pacemaker again noted. Medias tinal fullness likely represents the patient's known lymphadenopathy. Small to moderate bilateral ple ural effusions and bibasilar densities have progressed. There is progressive perihilar interstitial/v ascular thickening consistent with pulmonary edema. IMPRESSION: Interval progression of the pulmonary edema, bilateral pleural effusions, and bibasilar densities. ACT 112: Negative or not required by law. Electronically signed by: German Lemon M.D. 04/11/2022 6:11 PM
[2022-04-11] MEDS: NYSTATIN POWDER 15GM BTL EXT SCH (19:48)
[2022-04-11] MEDS ORDERED: ALBUMIN 25% 100 mL 25 GM/100 ML VIAL IV ONE (21:04)
[2022-04-11] MEDS ORDERED: FUROSEMIDE INJ 20 MG/2 ML VIAL IV ONE (21:04)
[2022-04-11] MEDS: MELATONIN 3 MG TAB PO SCH (21:28)
--- NOTE | 2022-04-12 06:09 | Hospitalist Progress Note ---
Date of Service April 11, 2022 Assessment & Plan (1) DLBCL (diffuse large B cell lymphoma): Plan: Biopsy shows a diffuse large B-cell lymphoma and she has radiologically widespread disease stage III/IV Evolving thrombocytopenia suggestd that there may be marrow involvement. Full staging work-up would include a PET scan and bone marrow. We may have a more urgent situation, however, with her declining overall performance status and the thrombocytopenia which even if not due to specific involvement of bone marrow with lymphoma could also be an autoimmune process associated with that. She does not seem to have septic parameters as a cause. We will check urgent B12 and folic acid as well as a peripheral blood smear by the pathologist to help us discern any other contributors to the current thrombocytopenia Baseline LDH and uric acid have been requested as well as a prelude to starting treatment. I spoke with the patient at her request also with her daughter Yanely. We have an urgent situation of what could be a rapidly progressive disease that could become life-threatening in and of itself in the near future. Her performance status, however, suggests that she may not be well enough to initially tolerate "full" chemotherapy with a regimen like RCHOP. I have often found success with cytoreduction in patients such as this with initial course of steroids (prednisone 1 mg/kg daily for 5 days which if there are no objections from consultants could start today) and a single dose of intravenous cyclophosphamide which we can give in the hospital. It might be prudent to start with this more streamlined approach to at least get some cytoreduction and hopefully make her better enough for additional staging and a full course of chemotherapy in the future. Given the thrombocytopenia there would be the risk of worsening thrombocytopenia and/or neutropenia even just with is trimmed down regimen but I think that at least some urgengt cytoreduction is the only path to improvement if she is to find that. I made it clear to the patient and especially to her daughter Yanely that how well she responds and for how long is unclear and that there may be life-threatening complications that occur as a result of the disease and/or of its treatment. We will plan to have a family meeting on evening at 5 PM to finalize the plans for the cyclophosphamide but would suggest that we could start the prednisone today. In and of itself prednisone is sometimes enough to ameliorate the situation. If her uric acid is not excessively elevated, however, it would be worthwhile to start allopurinol today as well at 300 mg daily and monitor electrolytes and uric acid closely even as we just start the prednisone for signs of tumor lysis. If uric acid is elevated we will need to consider rasburicase. It would be worthwhile for palliative care to be involved in ongoing management as well Plan Suggest start prednisone 1 mg/kg daily for a 5-day course then potential taper I have requested B12, folic acid, pathology smear review, uric acid, and LDH. With start allopurinol, if uric acid is excessively elevated may need rasburicase Plan family meeting evening at 5 PM. Potential plan for cyclophosphamide depending on that meeting and for the discussion with the patient as detailed above Given the urgent situation, cytoreduction will be important and even prior to being able to complete the entire work-up but in time we will need to schedule an outpatient PET scan as well marrow aspiration and biopsy Prognosis is guarded but this is a disease that in some patients can respond briskly Admission and Anticipated Discharge Date Admission Date: March 26, 2022 Subjective Lethargic but not in acute distress. She seems to answer questions appropriately. Physical Exam Physical Exam: Diffusely weak, does not seem to have focal neurological change. Not immediately tachypneic or in obvious distress. Vital signs currently stable on 2 L nasal Results & Data Results & Data ([facility]) Vital Signs (Past 12 Hours) Vital Signs Temp Pulse Pulse Resp BP Pulse Ox O2 Del Method 04/12/22 03:46 36.6 C 90 16 103/68 95 Nasal Cannula 04/11/22 23:57 22 96 Nasal Cannula 04/11/22 23:55 Nasal Cannula 04/11/22 22:57 36.6 C 89 18 105/68 90 Room Air 04/11/22 19:58 Room Air 04/11/22 19:31 36.3 C L 89 18 107/72 92 Room Air O2 Flow Rate 04/12/22 03:46 2 04/11/22 23:57 2 04/11/22 23:55 2 04/11/22 22:57 04/11/22 19:58 04/11/22 19:31 PG Care Time/CCT Total # of Minutes Spent Total Time Spent with Patient: Total time spent is greater than 50% in coordination of care (as documented) at patient's floor/unit and/or counseling patient: C[place] [address] Inpt Consult Level 4 Patient Type Established History Problem Focused Exam Problem Focused Medical Decision Making High Complexity Diagnoses DLBCL (diffuse large B cell lymphoma) C83.30 Time Spent (min) 40 Comment 10 min chart review, 20 with pt/bryon, 10 in Rx planning
[2022-04-12 06:41] LABS: BUN Creatinine Ratio 68.5 (10-20); Calcium 11.6 mg/dl (8.5-10.1); Creatinine Clr Calc Pharmacy 109.8 ml/min; Est GFR (African American) 106.2 ml/min; Est GFR (Non-African American) 91.7 ml/min; Potassium 4.3 mmol/L (3.5-5.1)
[2022-04-12 06:56] LABS: Anisocytosis Present; Basophils # (auto) 0.03 K/uL (0-0.2); Basophils % (auto) 0.3 %; Hematocrit (blood only) 40.8 % (34.1-44.9); Hemoglobin 13.5 g/dl (12.0-16.0); Immature Granulocytes # (auto) 0.07 K/uL (0.00-0.02); Immature Granulocytes % (auto) 0.7 %; Lymphocytes # (auto) 0.45 K/uL (1.2-3.4); Lymphocytes % (auto) 4.8 %; Mean Corpuscular Hemoglobin 29.9 pg (25.0-34.0); Mean Corpuscular Hgb Conc 33.1 g/dL (32.0-36.0); Mean Corpuscular Volume 90.3 fL (80.0-100.0); Mean Platelet Volume 11.8 fL (9.4-12.3); Monocytes # (auto) 0.49 K/uL (0.24-0.82); Monocytes % (auto) 5.2 %; Neutrophils # (auto) 8.31 K/uL (1.4-6.5); Platelet Count 96 K/uL (130-400); Polychromasia 1+; RDW Coefficient of Variation 20.4 % (11.5-14.5); RDW Standard Deviation 64.3 fL (36.4-46.3); Red Blood Count 4.52 M/uL (3.93-5.22); White Blood Count 9.35 K/ul (4.8-10.8)
[2022-04-12] MEDS ORDERED: FUROSEMIDE 20 MG TAB PO SCH (09:00)
[2022-04-12] MEDS ORDERED: CYANOCOBALAMIN (B-12) 500 MCG TABLET PO SCH (09:00)
[2022-04-12] MEDS: APIXABAN 5 MG TABLET PO SCH ×2 (09:33→20:09)
[2022-04-12] MEDS: NYSTATIN POWDER 15GM BTL EXT SCH ×2 (09:33→20:09)
[2022-04-12] MEDS: PARoxetine HCL 10 MG TAB PO SCH (09:33)
[2022-04-12] MEDS: METOPROLOL SUCC 25MG EXT REL TAB PO SCH (09:34)
[2022-04-12] MEDS: MULTIVITAMIN TAB PO SCH (09:34)
[2022-04-12] MEDS: LIDOCAINE 5% 1 PATCH TD SCH (09:34)
--- NOTE | 2022-04-12 10:06 | Nephrology Progress Note ---
Date of Service April 12, 2022 Assessment & Plan (1) Disorder of fluid or electrolyte: Plan: hypervolemic hyponatremia (sodium now normalized) also w/ hypercalcemia and hypophosphatemia > on phos repletion on 04/10; phos now repleted. TSH wnl. Hypervolemic hyponatremia with likely background SIADH >> sNa plateaud at 132 x 72 hrs then up to 137 today with diuretics on hold since 04/07 until 04/12; K remains acceptable na did improve a bit after some iv lasix; edema OK pt dx'd w/ aggressive large b cell lymphoma > starting high dose steroids / allopurinol on 04/12; for likely cyclophosphomide per heme on 04/14 >suspect hypercalcemia from lymphoma/granulomatous; plateau'd; no indication for fluids at this time; PTH low at 13; 25 OHD 31 -would not use bisphosphonate until/ unless phos consistently repleted and Ca a bit higher (risk of hypocalcemia) -f/u pending 1, 25 dihydroxy D, PTHrp -continue liberalized fluid limit 1.5L ->>given her dyspnea, started standing dose lasix 10 mg IV tid -continue lower sodium diet -K acceptable for now -daily bmp and phos mary at lymphoma therapy begins - so ordered Admission and Anticipated Discharge Date Admission Date: March 26, 2022 Subjective dx'd w/ aggressive diffuse large B cell lymphoma now formally; to start allopurinol and prednisone 110 mg daily then CYC later this week most likely; got 20 mg IV lasix w/ albumin ON x 1; at bedside on my visit this AM Review of Systems Review of Systems: All systems reviewed & are unremarkable except as noted in Subjective Physical Exam Constitutional: well developed, well nourished, + frail appearing and cooperative; no acute distress Eyes: EOM intact bilaterally ENMT: Ears: no external ear abnormality Nose: no external nose abnormality Mouth: + dry oral mucous membranes Neck: no nuchal rigidity Respiratory: + labored breathing (slight) and + paradoxical thoraco-abdominal movement; no respiratory distress and no cough Auscultation: + diminished l venkatesh sounds (mary bl bases and diminished air mvt throughout) Cardiovascular: Rate/Rhythm: regular rate and regular rhythm Extremities: + edema (trace) Gastrointestinal (Abdomen): Inspection/Auscultation: normal bowel sounds Percussion/Palpation: abdomen soft; abdomen nontender Musculoskeletal: Extremities: strength 5/5 throughout (marked generalized weakness) Skin: no rashes, warm and dry Neurologic: urena, fluent speech, no tremor Psychiatric: Orientation: oriented x 3 Genitourinary: tona urine Results & Data ([facility]) Vital Signs (Past 12 Hours) Vital Signs Temp Pulse Resp BP Pulse Ox O2 Del Method O2 Flow Rate 04/12/22 07:58 36.5 C 86 18 101/61 95 04/12/22 03:46 36.6 C 90 16 103/68 95 Nasal Cannula 2 04/11/22 23:57 22 96 Nasal Cannula 2 04/11/22 23:55 Nasal Cannula 2 04/11/22 22:57 36.6 C 89 18 105/68 90 Room Air Laboratory Results 04/12/22 05:56 04/12/22 05:56
[2022-04-12] MEDS: CYANOCOBALAMIN 1000 MCG/ML VIAL IM SCH (11:14)
[2022-04-12] MEDS: allopurinoL 300 MG TAB PO SCH (11:14)
[2022-04-12] MEDS: predniSONE 20 MG TAB PO SCH (11:59)
[2022-04-12] MEDS: FUROSEMIDE INJ 20 MG/2 ML VIAL IV SCH ×2 (14:31→21:33)
--- NOTE | 2022-04-12 15:48 | Hospitalist Progress Note ---
Date of Service April 11, 2022 Assessment & Plan (1) Diffuse large B-cell lymphoma: Plan: Appreciate hematology input and recommendation Biopsy of the cervical node shows a diffuse large B-cell lymphoma Has radiologically widespread disease with stage III-IV Likely has marrow infiltration as platelet counts are going down Patient is complaining more lethargy Will start prednisone 1 mg/kg body weight daily for 5 days and allopurinol 300 mg daily Plan to start cyclophosphamide on Sunday Discussed with the patient and the Prognosis remains poor Cervical lymphadenopathy Concern for primary neoplasm within the right palatine tonsils Concern for neoplasm [see imaging on 04/05 CTA neck]. Pt made aware, RN in the room and communicated to him as well. Updated and discussed with oncology 04/07, patient does have a history of breast cancer though this was apparently early stage. Recommends CT scan of the chest/abdomen/pelvis. Also recommends MRI of brain with and without but it is not possible for MRI policy of our hospital. Recommends ENT consult for possible proximal aerodigestive check. Recommends cervical lymph node biopsy. 04/06 CT AP: Partially imaged pathologic mediastinal and left axillary LAD in conjunction with a few mesenteric nodules. Recommends oncologic work-up. Prior hysterectomy/soft tissue nodules abutting the vaginal cuff measure up to 4.3 x 2.9 cm. Left greater than right pleural effusion. 04/06 CT chest: 1. Supraclavicular, left axillary, and mediastinal lymphadenopathy likely representing metastatic disease or lymphoma. 2. Small bilateral pleural effusions most pronounced on the left. No pneumothorax status post thoracentesis. 3. Patchy groundglass airspace opacities seen throughout the majority of the right lower lobe. This could be due to an aspiration pneumonia or reexpansion pulmonary edema given the recent thoracentesis. 4. Small to moderate pericardial effusion. 5. Possible right posterior pleural soft tissue nodules. 6. Additional findings as described above. Oncology/pulmonology/ENT on board. Status post right thoracentesis 04/06, 1300 mL of serous fluid removed, follow-up with pleural studies. Pl fl patho w/ no malig cells. 04/07: Successful ultrasound-guided fine-needle aspiration and core needle biopsy of her left axillary lymph node. --> Follow-up with lymph node pathology. F/u w/ oncology as OP. Calcium remains elevated at more than 11 likely secondary to possible lymphoma Will observe for now (2) Persistent atrial fibrillation: Plan 76 years old obese female with significant past medical history of paroxysmal atrial fibrillation, hypertension, hyperlipidemia, chronic rhinitis and history of breast cancer apparently has been complaining of generally weak and not feeling well for the last 1 week [employer]. She is being managed for the following: A. fib with RVR: History of such, on beta-vilma and Eliquis. Presented with 1 week history of weakness and shortness of breath on exertion. 03/27 echo: EF 45 to 50%. Mild global hypokinesis. Mild concentric LVH. A. fib with RVR. Status post IV diltiazem and IV beta-vilma. Could not tolerate IV Cardizem drip due to low blood pressure, heart rate was not responding even after digoxin. Heart rate remained elevated despite amiodarone. Status post cardioversion and reversal to sinus rhythm. Went back to A. fib with RVR with borderline low blood pressure. Cardiology on board, 03/30 cardioversion, 04/03 pacer with ventricular lead, 04/04 AV node ablation. Post ablation EKG with paced rhythm, patient with no chest pain. Continue to monitor over telemetry. c/w eliquis. Metoprolol/losartan on hold d/t soft BP---> metoprolol resumed 04/09, continue to monitor. f/u cardio as OP. Heart rate is well controlled and CHF seems to be improved Remains very weak and lethargic secondary to multiple medical problems Hemodynamically stable Hyponatremia: Admitting sodium of 121, as low as 119 earlier in admission. Likely secondary to poor p.o. intake. Nephrology on board, managing sodium l evel, Na 132 today. Patient does not like urea and has refused it. Patient w/ somewhat improving appetite. Collection Administrator consulted. encourage protein intake, low sodium diet. Lasix on hold due to soft BP. Na maintaining consistency above 130. Sodium level has gone up to 135 Small dose of oral Lasix will be started from tomorrow with potassium supplement Likely TIA: Post AV node ablation on 04/04/2022, patient was a stroke alert, apparently had right-sided facial droop with dysarthria and right-sided extremity weakness. 04/04 CT head was negative for any bleed. f/u CT Head 04/05 w/ no new acute findings. Received 300 Mg PA aspirin. Neurologically doing better. LDL 61. Neuro evaluated. Pt unable to have Brain MRI due to recent pacemaker placement per hospital policy per MRI department. Her other imagings as below: 04/05 CTA Head: 1. No acute infarct or intracranial hemorrhage. 2. No significant stenosis, occlusion, or aneurysm within the [place]. 04/05 CTA Neck: 1. No stenosis or dissection within the bilateral common carotid, cervical internal carotid or vertebral arteries. 2. Pathologic bilateral cervical lymphadenopathy, greater on the right. This is consistent with a neoplastic process and favors metastatic disease although lymphoma could appear similar. Potential primary neoplasm within the right palatine tonsils. These nodes would be amenable to ultrasound-guided biopsy. 3. Moderate to large right pleural effusion, partially imaged on this exam. Video swallow on her doesn't show aspiration but has esophageal dysmotility. Recommends GI consult. Diet recs would beeasy to chew, slippery, aspiration and reflux precautions. GI evaluated 04/07, no intervention for now; f/u w/ GI as OP. Remains very weak and lethargic and will continue to have PT and OT evaluation Pulmonary edema B/l Pleural effusion: Likely has acute diastolic heart failure secondary to A. fib with RVR. CXR suggestive of congestion and Rt > Lt pleural effusion. Patient on Lasix per nephrology for hyponatremia management. Patient maintaining on room air. Pulm on board: s/p Rt thoracentesis 04/06, 1300 mL of serous fluid removed. F/u w/ pleural studies. -Pleural aspirate is transudative likely from CHF Pt reports feeling better w/ breathing after thoracentesis. Weakness: Multifactorial complicated with poor appetite. PT/OT when able. Will likely need placement. She has been [facility] Remains very weak and lethargic to be transferred today Carbuncle/furuncle of trunk:: Status post antibiotic. Other chronic medical conditions: HTN --> continue home meds as and when able. DVT prophylaxis: Eliquis resumed CODE STATUS: Full code PT/OT, CM to assist w/ DC planning. likely can dc to placement. Will need to stay in the hospital for a few more days Admission and Anticipated Discharge Date Admission Date: March 26, 2022 Subjective 04/11/2022 The patient was seen and examined in telemetry unit She has been very weak and lethargic today and did not participate in physical therapy Denies any chest pain or palpitation Her blood pressure remains on the lower side at 94/65 04/12/2022 The patient was seen and examined in telemetry unit She has been stable but remains very weak and lethargic Denies any chest pain and/or palpitation and no shortness of breath at rest Review of Systems Review of Systems: All systems reviewed and are unremarkable except as noted below Respiratory: Minimal shortness of breath at rest Neurologic: Generalized weakness Physical Exam Physical Exam: Sitting on a chair with very lethargic Constitutional: well developed, well nourished, + ill appearing and + obese Eyes: PERRL, conjunctivae normal, anicteric sclerae ENMT: external ear and nose normal, oropharynx normal Neck: trachea midline, no thyromegaly Respiratory: no respiratory distress Auscultation: + diminished lung sounds and + crackles (Minimal crackles at the bases) Cardiovascular: Rate/Rhythm: regular rate, regular rhythm and + irregularly irregular; not tachycardic Heart Sounds: normal S1 and normal S2; no murmur Extremities: + edema (Trace edema bilaterally) Gastrointestinal (Abdomen): Inspection/Auscultation: normal bowel sounds; abdomen not distended Percussion/Palpation: abdomen soft; abdomen nontender Musculoskeletal: No acute arthritis in any joint Neurologic: normal touch/pain/proprioception and moves all extremities; no focal motor deficits Psychiatric: A+Ox3, euthymic affect Lymphatic: no cervical or axillary lymphadenopathy Results & Data Results & Data ([facility]) Vital Signs (Past 12 Hours) Vital Signs Temp Pulse Pulse Pulse Resp BP Pulse Ox 04/11/22 15:00 89 04/11/22 15:05 36.6 C 90 18 96/65 L 91 04/11/22 10:55 36.4 C L 89 18 94/65 L 91 04/11/22 08:00 04/11/22 09:00 89 107/74 04/11/22 07:55 36.6 C 89 18 93/64 L 92 O2 Del Method 04/11/22 15:00 04/11/22 15:05 Room Air 04/11/22 10:55 Room Air 04/11/22 08:00 Room Air 04/11/22 09:00 04/11/22 07:55 Room Air Laboratory Results Short CBC 04/12/22 Range/Units 05:56 WBC 9.35 (4.8-10.8) K/ul Hgb 13.5 (12.0-16.0) g/dl Hct 40.8 (34.1-44.9) % Plt Count 96 L (130-400) K/uL [facility] 04/12/22 05:56 Sodium 137 Potassium 4.3 Chloride 98 Carbon Dioxide 34 H BUN 37 H Creatinine 0.54 L Glucose 139 H Calcium 11.6 H Medications Administered Current Inpatient Medications Acetaminophen (Acetaminophen 500 Mg Tab) 1,000 mg PO Q8H PRN PRN Reason: Pain Stop: 04/29/22 14:02 Last Admin: 04/06/22 21:24 Dose: 1,000 mg Allopurinol (Allopurinol 300 Mg Tab) 300 mg PO DAILY LINDA Stop: 05/12/22 09:29 Last Admin: 04/12/22 11:14 Dose: 300 mg Apixaban (Apixaban 5 Mg Tablet) 5 mg PO BID LINDA Stop: 05/07/22 20:59 Last Admin: 04/12/22 09:33 Dose: 5 mg Cyanocobalamin (Cyanocobalamin 1000 Mcg/Ml Vial) 1,000 mcg IM QAM LINDA Stop: 05/12/22 09:29 Last Admin: 04/12/22 11:14 Dose: 1,000 mcg Furosemide (Furosemide Inj 20 Mg/2 Ml Vial) 10 mg IV Q8 LINDA Stop: 05/12/22 13:59 Last Admin: 04/12/22 14:31 Dose: 10 mg Lidocaine (Lidocaine 5% 1 Patch) 1 patch TD QAM LINDA Stop: 05/03/22 10:29 Last Admin: 04/12/22 09:34 Dose: 1 patch Losartan Potassium (Losartan Potassium 25 Mg Tab) 25 mg PO DAILY LINDA Stop: 04/26/22 08:59 Last Admin: 04/07/22 08:14 Dose: 25 mg Melatonin (Melatonin 3 Mg Tab) 6 mg PO HS LINDA Stop: 05/07/22 20:59 Last Admin: 04/11/22 21:28 Dose: 6 mg Metoprolol Succinate (Metoprolol Succ 25mg Ext Rel Tab) 25 mg PO DAILY LINDA Stop: 05/07/22 08:59 Last Admin: 04/12/22 09:34 Dose: 25 mg Metoprolol Tartrate (Metoprolol Tartrate 1 Mg/Ml Vial) 5 mg IV Q2H PRN PRN Reason: Tachycardia Stop: 04/25/22 21:59 Last Admin: 04/04/22 05:09 Dose: 5 mg Miscellaneous (Remove Lidoderm Patch) 1 each N/A DAILY@2100 [facility] Stop: 05/03/22 20:59 Last Admin: 04/11/22 19:48 Dose: 1 each Morphine Sulfate (Morphine Sulfate 2 Mg/Ml Carp) 1 mg IV Q6H PRN PRN Reason: Severe Pain Stop: 04/18/22 17:16 Last Admin: 04/04/22 17:41 Dose: 1 mg Multivitamins (Multivitamin Tab) 1 tab PO QAM LINDA Stop: 04/26/22 08:59 Last Admin: 04/12/22 09:34 Dose: 1 tab Nystatin (Nystatin Powder 15gm Btl) 1 appln EXT BID [facility] Stop: 05/11/22 20:59 Last Admin: 04/12/22 09:33 Dose: 1 appln Paroxetine HCl (Paroxetine Hcl 10 Mg Tab) 10 mg PO DAILY [facility] Stop: 04/27/22 12:44 Last Admin: 04/12/22 09:33 Dose: 10 mg Potassium Chloride (Potassium Chloride Crtab 20 Meq Tabcr) 20 meq PO BID LINDA Stop: 04/28/22 08:59 Last Admin: 04/03/22 17:07 Dose: Not Given Prednisone (Prednisone 20 Mg Tab) 110 mg PO DAILY [facility] Stop: 05/12/22 09:44 Last Admin: 04/12/22 11:59 Dose: 110 mg
[2022-04-12] MEDS: MELATONIN 3 MG TAB PO SCH (20:08)
[2022-04-13] MEDS: FUROSEMIDE INJ 20 MG/2 ML VIAL IV SCH ×3 (06:09→21:21)
--- NOTE | 2022-04-13 08:04 | Nephrology Progress Note ---
Date of Service April 13, 2022 Assessment & Plan (1) Disorder of fluid or electrolyte: Plan: volume overload w/ past hypervolemic hyponatremia (sodium now normalized) also w/ mild and today worsening/ now moderate hypercalcemia and past hypophosphatemia > on phos repletion on 04/10; phos now repleted. TSH wnl. Hypervolemic hyponatremia with likely background SIADH >> sNa plateaud at 132 x 72 hrs then up to 137 04/12 with diuretics on hold 04/07 until 04/12; K as of yesterday acceptable na did improve a bit after some iv lasix; edema OK but more dyspneic and today needing 02NC pt dx'd w/ aggressive large b cell lymphoma > started high dose steroids / all opurinol on 04/12; for likely cyclophosphomide per heme on 04/14 >suspect hypercalcemia from lymphoma/granulomatous; plateau'd; no indication for fluids at this time; PTH low at 13; 25 OHD 31 ->>>will give zometa 4 mg x 1 today -f/u pending 1, 25 dihydroxy D, PTHrp -continue liberalized fluid limit 1.5L ->>given her dyspnea, continue standing dose lasix 10 mg IV tid; BP appears to have tolerated so far and she is 650 mL negative past 24 hr and probably net even past 72 hr -continue lower sodium diet -K acceptable for now -daily bmp and phos, uric acid mary at lymphoma therapy begins - so ordered Admission and Anticipated Discharge Date Admission Date: March 26, 2022 Subjective seen on rounds at 10AM; up in chair, struggling to get pills down; states her breathing feels better though still short; denies uncontrolled pain; ongoing generalized weakness Review of Systems Review of Systems: All systems reviewed & are unremarkable except as noted in Subjective Physical Exam Constitutional: well developed, well nourished, + frail appearing and cooperative; no acute distress Eyes: EOM intact bilaterally ENMT: Ears: no external ear abnormality Nose: no external nose abnormality Mouth: + dry oral mucous membranes Neck: no nuchal rigidity Respiratory: normal respiratory effort; no respiratory distress, no labored breathing and no cough Auscultation: + diminished lung sounds Cardiovascular: Rate/Rhythm: regular rate and regular rhythm Extremities: + edema (trace) Gastrointestinal (Abdomen): Inspection/Auscultation: normal bowel sounds Percussion/Palpation: abdomen soft; abdomen nontender Musculoskeletal: Extremities: strength 5/5 throughout (marked generalized wea kness) Skin: no rashes, warm and dry Neurologic: urena, fluent speech, no tremor Psychiatric: Orientation: oriented x 3 Results & Data ([facility]) Vital Signs (Past 12 Hours) Vital Signs Temp Pulse Resp BP Pulse Ox O2 Del Method O2 Flow Rate 04/13/22 07:43 Nasal Cannula 2 04/13/22 03:22 36.4 C L 89 22 111/77 94 Nasal Cannula 2.0 04/12/22 22:29 36.5 C 90 18 125/84 94 Nasal Cannula 2.0 04/12/22 21:51 Nasal Cannula 2 04/12/22 20:20 36.7 C 89 22 99/66 L 91 Nasal Cannula 2.0 Laboratory Results 04/13/22 08:40 04/13/22 08:40
[2022-04-13 09:43] LABS: Anisocytosis Present; Basophils # (auto) 0.02 K/uL (0-0.2); Basophils % (auto) 0.2 %; Hematocrit (blood only) 44.1 % (34.1-44.9); Hemoglobin 14.3 g/dl (12.0-16.0); Immature Granulocytes # (auto) 0.09 K/uL (0.00-0.02); Immature Granulocytes % (auto) 0.8 %; Lymphocytes # (auto) 0.48 K/uL (1.2-3.4); Mean Corpuscular Hemoglobin 29.9 pg (25.0-34.0); Mean Corpuscular Hgb Conc 32.4 g/dL (32.0-36.0); Mean Corpuscular Volume 92.3 fL (80.0-100.0); Mean Platelet Volume 11.4 fL (9.4-12.3); Monocytes # (auto) 0.48 K/uL (0.24-0.82); Neutrophils # (auto) 10.85 K/uL (1.4-6.5); Platelet Count 120 K/uL (130-400); Platelet Estimate Decreased (Normal); Polychromasia 1+; RDW Coefficient of Variation 21.2 % (11.5-14.5); RDW Standard Deviation 67.4 fL (36.4-46.3); Red Blood Count 4.78 M/uL (3.93-5.22); Target Cells 1+; Toxic Granulation 1+; Toxic Vacuolation 1+; White Blood Count 11.92 K/ul (4.8-10.8)
[2022-04-13 09:54] LABS: Albumin Globulin Ratio 1.2 (0.9-2); Albumin Level 3.2 gm/dl (3.4-5.0); BUN Creatinine Ratio 59.4 (10-20); Bilirubin,Total 4.3 mg/dl (0.2-1.0); Calcium 12.2 mg/dl (8.5-10.1); Creatinine Clr Calc Pharmacy 82.8 ml/min; Est GFR (Non-African American) 84.6 ml/min; Globulin 2.7 gm/dl (2.5-4.0); Phosphorus 3.3 mg/dl (2.5-4.9); Potassium 4.5 mmol/L (3.5-5.1); Total Protein 5.9 gm/dl (6.0-8.3); Uric Acid 4.3 mg/dl (2.6-7.2)
[2022-04-13] MEDS: APIXABAN 5 MG TABLET PO SCH ×2 (09:57→19:40)
[2022-04-13] MEDS: METOPROLOL SUCC 25MG EXT REL TAB PO SCH (09:58)
[2022-04-13] MEDS: predniSONE 20 MG TAB PO SCH (09:58)
[2022-04-13] MEDS: MULTIVITAMIN TAB PO SCH (09:58)
[2022-04-13] MEDS: allopurinoL 300 MG TAB PO SCH (09:58)
[2022-04-13] MEDS: CYANOCOBALAMIN 1000 MCG/ML VIAL IM SCH (09:58)
[2022-04-13] MEDS: LIDOCAINE 5% 1 PATCH TD SCH (09:59)
[2022-04-13] MEDS: PARoxetine HCL 10 MG TAB PO SCH (10:00)
[2022-04-13] MEDS: NYSTATIN POWDER 15GM BTL EXT SCH ×2 (10:07→19:46)
--- NOTE | 2022-04-13 13:23 | Hospitalist Progress Note ---
Date of Service April 13, 2022 Assessment & Plan (1) Diffuse large B-cell lymphoma: Plan: Appreciate hematology input and recommendation Biopsy of the cervical node shows a diffuse large B-cell lymphoma Has radiologically widespread disease with stage III-IV Likely has marrow infiltration as platelet counts are going down Patient is complaining more lethargy Will start prednisone 1 mg/kg body weight daily for 5 days and allopurinol 300 mg daily Plan to start cyclophosphamide on Sunday Discussed with the patient and the Prognosis remains poor Clinically a little bit better but remains weak and lethargic Plan to start chemotherapy from tomorrow Cervical lymphadenopathy Concern for primary neoplasm within the right palatine tonsils Concern for neoplasm [see imaging on 04/05 CTA neck]. Pt made aware, RN in the room and communicated to him as well. Updated and discussed with oncology 04/07, patient does have a history of breast cancer though this was apparently early stage. Recommends CT scan of the chest/abdomen/pelvis. Also recommends MRI of brain with and without but it is not possible for MRI policy of our hospital. Recommends ENT consult for possible proximal aerodigestive check. Recommends cervical lymph node biopsy. 04/06 CT AP: Partially imaged pathologic mediastinal and left axillary LAD in conjunction with a few mesenteric nodules. Recommends oncologic work-up. Prior hysterectomy/soft tissue nodules abutting the vaginal cuff measure up to 4.3 x 2.9 cm. Left greater than right pleural effusion. 04/06 CT chest: 1. Supraclavicular, left axillary, and mediastinal lymphadenopathy likely representing metastatic disease or lymphoma. 2. Small bilateral pleural effusions most pronounced on the left. No pneumothorax status post thoracentesis. 3. Patchy groundglass airspace opacities seen throughout the majority of the right lower lobe. This could be due to an aspiration pneumonia or reexpansion pulmonary edema given the recent thoracentesis. 4. Small to moderate pericardial effusion. 5. Possible right posterior pleural soft tissue nodules. 6. Additional findings as described above. Oncology/pulmonology/ENT on board. Status post right thoracentesis 04/06, 1300 mL of serous fluid removed, follow-up with pleural studies. Pl fl patho w/ no malig cells. 04/07: Successful ultrasound-guided fine-needle aspiration and core needle biopsy of her left axillary lymph node. --> Follow-up with lymph node pathology. F/u w/ oncology as OP. 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 She is being managed for the following: A. fib with RVR: History of such, on beta-vilma and Eliquis. Presented with 1 week history of weakness and shortness of breath on exertion. 03/27 echo: EF 45 to 50%. Mild global hypokinesis. Mild concentric LVH. A. fib with RVR. Status post IV diltiazem and IV beta-vilma. Could not tolerate IV Cardizem drip due to low blood pressure, heart rate was not responding even after digoxin. Heart rate remained elevated despite amiodarone. Status post cardioversion and reversal to sinus rhythm. Went back to A. fib with RVR with borderline low blood pressure. Cardiology on board, 03/30 cardioversion, 04/03 pacer with ventricular lead, AV node ablation. Post ablation EKG with paced rhythm, patient with no chest pain. Continue to monitor over telemetry. c/w eliquis. Metoprolol/losartan on hold d/t soft BP---> metoprolol resumed 04/09, continue to monitor. f/u cardio as OP. Heart rate is well controlled and CHF seems to be improved Remains very weak and lethargic secondary to multiple medical problems Hemodynamically stable Hyponatremia: Admitting sodium of 121, as low as 119 earlier in admission. Likely secondary to poor p.o. intake. Nephrology on board, managing sodium level, Na 132 today. Patient does not like urea and has refused it. Patient w/ somewhat improving appetite. Derrick Helper consulted. encourage protein intake, low sodium diet. Lasix on hold due to soft BP. Na maintaining consistency above 130. Sodium level has gone up to 135 Small dose of oral Lasix will be started from tomorrow with potassium supplement Likely TIA: Post AV node ablation on 04/04/2022, patient was a stroke alert, apparently had right-sided facial droop with dysarthria and right-sided extremity weakness. 04/04 CT head was negative for any bleed. f/u CT Head 04/05 w/ no new acute findings. Received 300 Mg SD aspirin. Neurologically doing better. LDL 61. Neuro evaluated. Pt unable to have Brain MRI due to recent pacemaker placement per hospital policy per MRI department. Her other imagings as below: 04/05 CTA Head: 1. No acute infarct or intracranial hemorrhage. 2. No significant stenosis, occlusion, or aneurysm within the [place]. 04/05 CTA Neck: 1. No stenosis or dissection within the bilateral common carotid, cervical internal carotid or vertebral arteries. 2. Pathologic bilateral cervical lymphadenopathy, greater on the right. This is consistent with a neoplastic process and favors metastatic disease although lymphoma could appear similar. Potential primary neoplasm within the right palatine tonsils. These nodes would be amenable to ultrasound-guided biopsy. 3. Moderate to large right pleural effusion, partially imaged on this exam. Video swallow on her doesn't show aspiration but has esophageal dysmotility. Recommends GI consult. Diet recs would beeasy to chew, slippery, aspiration and reflux precautions. GI evaluated 04/07, no intervention for now; f/u w/ GI as OP. Remains very weak and lethargic and will continue to have PT and OT evaluation Pulmonary edema B/l Pleural effusion: Likely has acute diastolic heart failure secondary to A. fib with RVR. CXR suggestive of congestion and Rt > Lt pleural effusion. Patient on Lasix per ne phrology for hyponatremia management. Patient maintaining on room air. Pulm on board: s/p Rt thoracentesis 04/06, 1300 mL of serous fluid removed. F/u w/ pleural studies. -Pleural aspirate is transudative likely from CHF Pt reports feeling better w/ breathing after thoracentesis. Has been getting Lasix Weakness: Multifactorial complicated with poor appetite. PT/OT when able. Will likely need placement. She has [facility] Remains very weak and lethargic to be transferred today We will continue to have physical therapy evaluation Carbuncle/furuncle of trunk:: Status post antibiotic. Other chronic medical conditions: HTN --> continue home meds as and when able. DVT prophylaxis: Eliquis resumed CODE STATUS: Full code PT/OT, CM to assist w/ DC planning. likely can dc to placement. Will need to stay in the hospital for a few more days Admission and Anticipated Discharge Date Admission Date: March 26, 2022 Subjective 04/11/2022 The patient was seen and examined in telemetry unit She has been very weak and lethargic today and did not participate in physical therapy Denies any chest pain or palpitation Her blood pressure remains on the lower side at 94/65 04/12/2022 The patient was seen and examined in telemetry unit She has been stable but remains very weak and lethargic Denies any chest pain and/or palpitation and no shortness of breath at rest 04/13/2022 The patient was seen and examined in telemetry unit She feels a little bit better today and is out of bed on a chair Remains weak and lethargic but not in any acute distress Has been requiring about 3 L of oxygen to maintain saturation Review of Systems Review of Systems: All systems reviewed and are unremarkable except as noted below Respiratory: Minimal shortness of breath at rest Neurologic: Generalized weakness Physical Exam Physical Exam: Sitting on a chair with very lethargic Constitutional: well developed, well nourished, + ill appearing and + obese Eyes: PERRL, conjunctivae normal, anicteric sclerae ENMT: external ear and nose normal, oropharynx normal Neck: trachea midline, no thyromegaly Respiratory: no respiratory distress Auscultation: + diminished lung sounds and + crackles (Minimal crackles at the bases) Cardiovascular: Rate/Rhythm: regular rate, regular rhythm and + irregularly irregular; not tachycardic Heart Sounds: normal S1 and normal S2; no murmur Extremities: + edema (Trace edema bilaterally) Gastrointestinal (Abdomen): Inspection/Auscultation: normal bowel sounds; abdomen not distended Percussion/Palpation: abdomen soft; abdomen nontender Musculoskeletal: No acute arthritis involving any joint Neurologic: normal touch/pain/proprioception and moves all extremities; no focal motor deficits Psychiatric: A+Ox3, euthymic affect Lymphatic: no cervical or axillary lymphadenopathy Results & Data Results & Data ([facility]) Vital Signs (Past 12 Hours) Vital Signs Temp Pulse Pulse Pulse Resp BP Pulse Ox 04/13/22 11:00 36.4 C L 89 18 99/60 L 96 04/13/22 09:05 89 04/13/22 07:00 36.4 C L 91 H 18 112/76 94 04/13/22 07:43 04/13/22 03:22 36.4 C L 89 22 111/77 94 O2 Del Method O2 Flow Rate 04/13/22 11:00 Nasal Cannula 3 04/13/22 09:05 04/13/22 07:00 Nasal Cannula 3 04/13/22 07:43 Nasal Cannula 2 04/13/22 03:22 Nasal Cannula 2.0 Laboratory Results Short CBC 04/13/22 Range/Units 08:40 WBC 11.92 H (4.8-10.8) K/ul Hgb 14.3 (12.0-16.0) g/dl Hct 44.1 (34.1-44.9) % Plt Count 120 L (130-400) K/uL BMP 04/13/22 08:40 Sodium 138 Potassium 4.5 Chloride 97 L Carbon Dioxide 36 H BUN 41 H Creatinine 0.69 Glucose 167 H Calcium 12.2 H* Liver Function 04/13/22 Range/Units 08:40 Total Bilirubin 4.3 H (0.2-1.0) mg/dl AST 30 (13-39) U/L ALT 17 (7-52) U/L Alkaline Phosphatase 55 (34-104) U/L Albumin 3.2 L (3.4-5.0) gm/dl Medications Administered Current Inpatient Medications Acetaminophen (Acetaminophen 500 Mg Tab) 1,000 mg PO Q8H PRN PRN Reason: Pain Stop: 04/29/22 14:02 Last Admin: 04/06/22 21:24 Dose: 1,000 mg Allopurinol (Allopurinol 300 Mg Tab) 300 mg PO DAILY LINDA Stop: 05/12/22 09:29 Last Admin: 04/13/22 09:58 Dose: 300 mg Apixaban (Apixaban 5 Mg Tablet) 5 mg PO BID LINDA Stop: 05/07/22 20:59 Last Admin: 04/13/22 09:57 Dose: 5 mg Cyanocobalamin (Cyanocobalamin 1000 Mcg/Ml Vial) 1,000 mcg IM QAM LINDA Stop: 05/12/22 09:29 Last Admin: 04/13/22 09:58 Dose: 1,000 mcg Furosemide (Furosemide Inj 20 Mg/2 Ml Vial) 10 mg IV Q8 LINDA Stop: 05/12/22 13:59 Last Admin: 04/13/22 06:09 Dose: 10 mg Lidocaine (Lidocaine 5% 1 Patch) 1 patch TD QAM LINDA Stop: 05/03/22 10:29 Last Admin: 04/13/22 09:59 Dose: 1 patch Losartan Potassium (Losartan Potassium 25 Mg Tab) 25 mg PO DAILY LINDA Stop: 04/26/22 08:59 Last Admin: 04/07/22 08:14 Dose: 25 mg Melatonin (Melatonin 3 Mg Tab) 6 mg PO HS LINDA Stop: 05/07/22 20:59 Last Admin: 04/12/22 20:08 Dose: 6 mg Metoprolol Succinate (Metoprolol Succ 25mg Ext Rel Tab) 25 mg PO DAILY LINDA Stop: 05/07/22 08:59 Last Admin: 04/13/22 09:58 Dose: 25 mg Metoprolol Tartrate (Metoprolol Tartrate 1 Mg/Ml Vial) 5 mg IV Q2H PRN PRN Reason: Tachycardia Stop: 04/25/22 21:59 Last Admin: 04/04/22 05:09 Dose: 5 mg Miscellaneous (Remove Lidoderm Patch) 1 each N/A DAILY@2100 [facility] Stop: 05/03/22 20:59 Last Admin: 04/12/22 23:28 Dose: 1 each Morphine Sulfate (Morphine Sulfate 2 Mg/Ml Carp) 1 mg IV Q6H PRN PRN Reason: Severe Pain Stop: 04/18/22 17:16 Last Admin: 04/04/22 17:41 Dose: 1 mg Multivitamins (Multivitamin Tab) 1 tab PO QAM [facility] Stop: 04/26/22 08:59 Last Admin: 04/13/22 09:58 Dose: 1 tab Nystatin (Nystatin Powder 15gm Btl) 1 appln EXT BID [facility] Stop: 05/11/22 20:59 Last Admin: 04/13/22 10:07 Dose: 1 appln Paroxetine HCl (Paroxetine Hcl 10 Mg Tab) 10 mg PO DAILY [facility] Stop: 04/27/22 12:44 Last Admin: 04/13/22 10:00 Dose: 10 mg Potassium Chloride (Potassium Chloride Crtab 20 Meq Tabcr) 20 meq PO BID [facility] Stop: 04/28/22 08:59 Last Admin: 04/03/22 17:07 Dose: Not Given Prednisone (Prednisone 20 Mg Tab) 110 mg PO DAILY [facility] Stop: 05/12/22 09:44 Last Admin: 04/13/22 09:58 Dose: 110 mg
[2022-04-13] MEDS ORDERED: ZOLEDRONIC ACID 4 MG in 0.9 % SODIUM CHLORIDE 100 ML IV ONE (14:00)
[2022-04-13] MEDS: MELATONIN 3 MG TAB PO SCH (19:41)
[2022-04-14] MEDS: FUROSEMIDE INJ 20 MG/2 ML VIAL IV SCH ×3 (05:58→21:24)
--- NOTE | 2022-04-14 06:33 | Hospitalist Progress Note ---
Date of Service April 13, 2022 Assessment & Plan (1) Diffuse large B-cell lymphoma: Plan: Mirna was joined by her and 2 daughters. We spoke for [address] Ethan [place]. We discussed that she has a diagnosis of diffuse large B-cell lymphoma. That that lymphoma appears to involve mediastinal, axillary, supra kyle, and cervical nodes. While there is no definitive involvement of the abdomen, we indicated we cannot rule that out and also noted that the recent thrombocytopenia suggest possible marrow involvement as well. We outlined that this is therefore probably at least a stage II or more likely stage III/IV presentation. We discussed that this is not a double hit lymphoma but that it is an aggressive process. We discussed the standard treatment approach is using multiagent chemotherapy but concerned that her current performance status might not support going with "full dose" treatment at this time. We also discussed the concern, however, this is a disease that can progress aggressively and without early intervention we may lose a window of optimal response. We outlined that we have already started steroids without see some improvement in her overall situation and her platelets which is encouraging. We outlined that we have seen for the rise in calcium suggesting that there is either marrow or bone involvement and that we have had add a bisphosphonate to control that. I propose that we start with a "cytoreduction" aim with single agent intravenous cyclophosphamide coupled with completion of the current planned 5-day steroid course. We have indicated this is not definitive therapy but that if we can get some reduction in the overall tumor load, this will hopefully lead to more opportunity for her to get sufficient performance status improvement during posthospital rehab that we can within 3 weeks to start more definitive treatment. We outlined the potential side effects of cyclophosphamide that could include life-threatening cytopenias and I have given them the update print out on the medication for further review. I am also written outline which is found in the [facility] database that was printed and given to them as a patient after visit summary outlining the above and the rationale for treatment as well as pointing them towards a number of websites for further review including that of the National Cancer [place], NCCN, [place] [employer], and leukemia lymphoma Society More formally 1. We discussed that s/he is diagnosed with diffuse large B-cell lymphoma and that our proposed treatment program will be initial cyclophosphamide with prednisone and if she can improve sufficiently consideration of Rmini CHOP or RCHOP. 2. We discussed that the intent of this treatment is to achieve and maintain a complete remission. We noted that there are a good fraction of patients with DLBCL that do achieve remission and among them a reasonable fraction that maintained that but that how she does as an individual cannot be completely predicted. 3. We discussed that this treatment program can be associated with toxicities including: Nausea/vomiting which are usually well controlled, multiple other organ toxicities as outlined in the patient information sheet. We discussed in particular that this chemotherapy can be associated with low blood counts which can lead to threatening bleeding and/or infection and have emphasized the emergent need to notify us for temperature elevations or unusual bruising or bleeding. We discussed that there may be other toxicities and side effects that are not so easily anticipated and that s/he should be in touch with us quickly for any changes in clinical status. We have indicated that we cannot be assured of the degree or durability of his/her response. 4. We discussed that alternative approaches to treatment could include: no treatment but with the risk of further progression of the condition. We discussed that we are happy to facilitate a second opinion at any time in his/her treatment course to make sure that there has been a complete review of alternatives. 5. Patient has been given additional educational materials and online websites that can give additional information about the disease and the planned treatment. Patient and her family have had an opportunity to ask questions and I have answered all questions to the best my ability during our visit. I have emphasized the continuous availability of staff day and night to immediately discuss any changes in status. 6. She has given initial verbal consent to proceed and her daughters and were in agreement. I have asked her to review the materials overnight and we will complete a formal informed consent to be placed in the medical record tomorrow. 7. We have emphasized that s/he can withdraw his/her consent and stop treatment at any time and for any reason of his/her choosing Plan Anticipating starting cyclophosphamide on 04/14/2022. Will need to assure that there is no significant tumor lysis, that her calcium has come under good control, her cardiac and respiratory status are stable and anticipate discharge to rehabilitation sometime next week. We will plan to see the patient in our clinic during her rehab stay to further discuss and confirm a plan for more definitive chemotherapy at a future date Admission and Anticipated Discharge Date Admission Date: March 26, 2022 Aba Bradley is more alert and interactive today. She continues to be quite weak but is not immediately dyspneic or in pain. Physical Exam Physical Exam: Vital signs seems stable, she seems mildly tachypneic but is making only minimal use of accessory respiratory muscles. Pulse is regular Results & Data Results & Data ([facility]) Vital Signs (Past 12 Hours) Vital Signs Temp Pulse Pulse Resp BP Pulse Ox O2 Del Method 04/14/22 03:32 36.7 C 88 20 113/75 92 Room Air 04/13/22 23:10 36.4 C L 89 18 93/63 L 92 Nasal Cannula 04/13/22 19:33 Nasal Cannula 04/13/22 22:11 90 04/13/22 20:35 107/70 04/13/22 19:24 36.4 C L 89 22 91/59 L 93 Nasal Cannula O2 Flow Rate 04/14/22 03:32 04/13/22 23:10 2.5 04/13/22 19:33 2 04/13/22 22:11 04/13/22 20:35 04/13/22 19:24 2.5 PG Care Time/CCT Total # of Minutes Spent Total Time Spent with Patient: Total time spent is greater than 50% in coordination of care (as documented) at patient's floor/unit and/or counseling patient: [place] [address] Subseq Hosp Care Lvl 3 Patient Type Established History Problem Focused Exam Problem Focused Medical Decision Making High Complexity Diagnoses Diffuse large B-cell lymphoma C83.30 Time Spent (min) 45
[2022-04-14 06:39] LABS: Hematocrit (blood only) 44.4 % (34.1-44.9); Hemoglobin 14.5 g/dl (12.0-16.0); Mean Corpuscular Hemoglobin 30.5 pg (25.0-34.0); Mean Corpuscular Hgb Conc 32.7 g/dL (32.0-36.0); Mean Corpuscular Volume 93.3 fL (80.0-100.0); Mean Platelet Volume 12.4 fL (9.4-12.3); Nucleated RBC # (auto) 0.04 K/uL (0-0); Nucleated RBC % (auto) 0.3 %; Platelet Count 126 K/uL (130-400); RDW Coefficient of Variation 20.9 % (11.5-14.5); RDW Standard Deviation 67.5 fL (36.4-46.3); Red Blood Count 4.76 M/uL (3.93-5.22)
[2022-04-14 06:58] LABS: Anisocytosis Present; Basophils # (auto) 0.01 K/uL (0-0.2); Basophils % (auto) 0.1 %; Echinocytes 1+; Immature Granulocytes # (auto) 0.09 K/uL (0.00-0.02); Immature Granulocytes % (auto) 0.7 %; Monocytes # (auto) 0.53 K/uL (0.24-0.82); Monocytes % (auto) 4.3 %; Neutrophils # (auto) 11.27 K/uL (1.4-6.5); Neutrophils % (auto) 90.9 %; Polychromasia 1+
[2022-04-14 07:05] LABS: BUN Creatinine Ratio 66.2 (10-20); Bilirubin,Total 3.8 mg/dl (0.2-1.0); Calcium 11.9 mg/dl (8.5-10.1); Creatinine Clr Calc Pharmacy 78.7 ml/min; Est GFR (African American) 91.2 ml/min; Est GFR (Non-African American) 78.7 ml/min; Potassium 4.9 mmol/L (3.5-5.1); Uric Acid 4.4 mg/dl (2.6-7.2)
[2022-04-14] MEDS: predniSONE 20 MG TAB PO SCH (08:58)
[2022-04-14] MEDS: MULTIVITAMIN TAB PO SCH (08:59)
[2022-04-14] MEDS: LIDOCAINE 5% 1 PATCH TD SCH (08:59)
[2022-04-14] MEDS: APIXABAN 5 MG TABLET PO SCH ×2 (08:59→20:00)
[2022-04-14] MEDS: PARoxetine HCL 10 MG TAB PO SCH (08:59)
[2022-04-14] MEDS: METOPROLOL SUCC 25MG EXT REL TAB PO SCH (08:59)
[2022-04-14] MEDS: CYANOCOBALAMIN 1000 MCG/ML VIAL IM SCH (08:59)
[2022-04-14] MEDS: NYSTATIN POWDER 15GM BTL EXT SCH ×2 (09:01→19:59)
[2022-04-14] MEDS ORDERED: FAMOTIDINE 20 MG in SYRINGE 3 ML IV PRN (10:01)
[2022-04-14] MEDS ORDERED: methylPREDNISolone 125 MG in SYRINGE 0 ML IV PRN (10:02)
--- NOTE | 2022-04-14 10:41 | Nephrology Progress Note ---
Date of Service April 14, 2022 Assessment & Plan (1) Disorder of fluid or electrolyte: Plan: volume overload w/ past hypervolemic hyponatremia (sodium now normalized) also w/ mild and today moderate hypercalcemia (s/p zometa 04/13) and past hypophosphatemia > on phos repletion on 04/10; phos now repleted. TSH wnl. Hypervolemic hyponatremia with likely background SIADH >> sNa plateaud at 132 x 72 hrs then up to 137 04/12 with diuretics on hold 04/07 until 04/12; K borderline today and supplements approrpiately held na did improve a bit after some iv lasix; edema OK but more dyspneic and today needing 02NC pt dx'd w/ aggressive large b cell lymphoma > started high dose steroids / allopurinol on 04/12; for likely cyclophosphomide per heme on 04/14 >attribute hypercalcemia from lymphoma/granulomatous; plateau'd; no indication for fluids at this time; PTH low at 13; 25 OHD 31 -f/u pending 1, 25 dihydroxy D, PTHrp -continue liberalized fluid limit 1.5L ->>given her dyspnea, would again continue standing dose lasix 10 mg IV tid; BP appears to have tolerated so far and she is 650 mL negative past 24 hr and probably net even past 72 hr -continue lower sodium diet -monitor volume status on steroids -K acceptable for now > cont to hold supplements K -daily bmp and phos, uric acid mary at lymphoma therapy begins - so ordered Admission and Anticipated Discharge Date Admission Date: March 26, 2022 Subjective exhausted/tired after first CYC dose today; receiving high rate IVF post infusion when I saw her this evening. no change to generalized weakness, exertional dyspnea Review of Systems Review of Systems: All systems reviewed & are unremarkable except as noted in Subjective Physical Exam Constitutional: well developed, well nourished, + frail appearing and cooperative; no acute distress Eyes: EOM intact bilaterally ENMT: Ears: no external ear abnormality Nose: no external nose abnormality Mouth: + dry oral mucous membranes Neck: no nuchal rigidity Respiratory: normal respiratory effort and + paradoxical thoraco-abdominal movement; no respiratory distress, no labored breathing and no cough Auscultation: + diminished lung sounds Cardiovascular: Rate/Rhythm: regular rate and regular rhythm Extremities: + edema (trace) Gastrointestinal (Abdomen): Inspection/Auscultation: normal bowel sounds Percussion/Palpation: abdomen soft; abdomen nontender Musculoskeletal: Extremities: strength 5/5 throughout (marked generalized weakness) Skin: no rashes, warm and dry Neurologic: urena, fluent speech, + resting tremor Psychiatric: Orientation: oriented x 3 Results & Data ([facility]) Vital Signs (Past 12 Hours) Vital Signs Temp Pulse Pulse Resp BP Pulse Ox O2 Del Method 04/14/22 07:54 89 04/14/22 07:00 36.7 C 83 18 127/75 89 L Room Air 04/14/22 03:32 36.7 C 88 20 113/75 92 Room Air 04/13/22 23:10 36.4 C L 89 18 93/63 L 92 Nasal Cannula O2 Flow Rate 04/14/22 07:54 04/14/22 07:00 04/14/22 03:32 04/13/22 23:10 2.5 Laboratory Results 04/14/22 06:00 04/14/22 06:00
[2022-04-14] MEDS: allopurinoL 100 MG TAB PO SCH (11:05)
[2022-04-14] MEDS ORDERED: PALONOSETRON 0.25 MG in SYRINGE 0 ML IV ONE (11:30)
[2022-04-14] MEDS ORDERED: CYCLOPHOSPHAMIDE IV SCH (12:00)
[2022-04-14] MEDS ORDERED: SODIUM CHLORIDE 0.9% IV SCH (12:00)
[2022-04-14] MEDS ORDERED: SODIUM CHLORIDE 0.9% 1000ML 1,000 ML IV SCH (12:00)
--- NOTE | 2022-04-14 15:09 | Hospitalist Progress Note ---
Date of Service April 14, 2022 Assessment & Plan (1) Diffuse large B-cell lymphoma: Plan: Appreciate hematology input and recommendation Biopsy of the cervical node shows a diffuse large B-cell lymphoma Has radiologically widespread disease with stage III-IV Likely has marrow infiltration as platelet counts are going down Patient is complaining more lethargy Will start prednisone 1 mg/kg body weight daily for 5 days and allopurinol 300 mg daily Plan to start cyclophosphamide on Sunday Discussed with the patient and the Prognosis remains poor Clinically a little bit better but remains weak and lethargic Status post intravenous cyclophosphamide-first dose of chemo started on 04/14/2022 Patient remains weak and lethargic but does not have any other acute symptoms-no rash and no nausea stomach upset and no shortness of breath Has been getting minimal intravenous fluid and will monitor for any fluid overload-labs will be monitored Cervical lymphadenopathy Concern for primary neoplasm within the right palatine tonsils Concern for neoplasm [see imaging on 04/05 CTA neck]. Pt made aware, RN in the room and communicated to him as well. Updated and discussed with oncology 04/07, patient does have a history of breast cancer though this was apparently early stage. Recommends CT scan of the chest/abdomen/pelvis. Also recommends MRI of brain with and without but it is not possible for MRI policy of our hospital. Recommends ENT consult for possible proximal aerodigestive check. Recommends cervical lymph node biopsy. 04/06 CT AP: Partially imaged pathologic mediastinal and left axillary LAD in conjunction with a few mesenteric nodules. Recommends oncologic work-up. Prior hysterectomy/soft tissue nodules abutting the vaginal cuff measure up to 4.3 x 2.9 cm. Left greater than right pleural effusion. 04/06 CT chest: 1. Supraclavicular, left axillary, and mediastinal lymphadenopathy likely representing metastatic disease or lymphoma. 2. Small bilateral pleural effusions most pronounced on the left. No pneumothorax status post thoracentesis. 3. Patchy groundglass airspace opacities seen throughout the majority of the right lower lobe. This could be due to an aspiration pneumonia or reexpansion pulmonary edema given the recent thoracentesis. 4. Small to moderate pericardial effusion. 5. Possible right posterior pleural soft tissue nodules. 6. Additional findings as described above. Oncology/pulmonology/ENT on board. Status post right thoracentesis 04/06, 1300 mL of serous fluid removed, follow-up with pleural studies. Pl fl patho w/ no malig cells. 04/07: Successful ultrasound-guided fine-needle aspiration and core needle biopsy of her left axillary lymph node. --> Follow-up with lymph node pathology. F/u w/ oncology as OP. Calcium remains elevated at more than 11 likely secondary to possible lymphoma Will observe for now Hypercalcemia Secondary to lymphoma Will need Zometa-await nephrology input Received Zometa yesterday Calcium level is little bit down at 11.9 today (2) Persistent atrial fibrillation: Plan 76 years old obese female with significant past medical history of paroxysmal atrial fibrillation, hypertension, hyperlipidemia, chronic rhinitis and history of breast cancer apparently has been complaining of generally weak and not feeling well for the last 1 week [facility]. She is being managed for the following: A. fib with RVR: History of such, on beta-vilma and Eliquis. Presented with 1 week history of weakness and shortness of breath on exertion. 03/27 echo: EF 45 to 50%. Mild global hypokinesis. Mild concentric LVH. A. fib with RVR. Status post IV diltiazem and IV beta-vilma. Could not tolerate IV Cardizem drip due to low blood pressure, heart rate was not responding even after digoxin. Heart rate remained elevated despite amiodarone. Status post cardioversion and reversal to sinus rhythm. Went back to A. fib with RVR with borderline low blood pressure. Cardiology on board, 03/30 cardioversion, 04/03 pacer with ventricular lead, 04/04 AV node ablation. Post ablation EKG with paced rhythm, patient with no chest pain. Rate remains controlled Continue to monitor over telemetry. c/w eliquis. Metoprolol/losartan on hold d/t soft BP---> metoprolol resumed 04/09, continue to monitor. f/u cardio as OP. Heart rate is well controlled and CHF seems to be improved Remains very weak and lethargic secondary to multiple medical problems Hemodynamically stable Hyponatremia: Admitting sodium of 121, as low as 119 earlier in admission. Likely secondary to poor p.o. intake. Nephrology on board, managing sodium level, Na 132 today. Patient does not like urea and has refused it. Patient w/ somewhat improving appetite. [employer] consulted. encourage protein intake, low sodium diet. Lasix on hold due to soft BP. Na maintaining consistency above 130. Sodium level has gone up to 135 Small dose of oral Lasix will be started from tomorrow with potassium supplement Likely TIA: Post AV node ablation on 04/04/2022, patient was a stroke alert, apparently had right-sided facial droop with dysarthria and right-sided extremity weakness. 04/04 CT head was negative for any bleed. f/u CT Head 04/05 w/ no new acute findings. Received 300 Mg ME aspirin. Neurologically doing better. LDL 61. Neuro evaluated. Pt unable to have Brain MRI due to recent pacemaker placement per hospital policy per MRI department. Her other imagings as below: 04/05 CTA Head: 1. No acute infarct or intracranial hemorrhage. 2. No significant stenosis, occlusion, or aneurysm within the [place]. 04/05 CTA Neck: 1. No stenosis or dissection within the bilateral common carotid, cervical internal carotid or vertebral arteries. 2. Pathologic bilateral cervical lymphadenopathy, greater on the right. This is consistent with a neoplastic process and favors metastatic disease although lymphoma could appear similar. Potential primary neoplasm within the right palatine tonsils. These nodes would be amenable to ultrasound-guided biopsy. 3. Moderate to large right pleural effusion, partially imaged on this exam. Video swallow on her doesn't show aspiration but has esophageal dysmotility. Recommends GI consult. Diet recs would beeasy to chew, slippery, aspiration and reflux precautions. GI evaluated 04/07, no intervention for now; f/u w/ GI as OP. Remains very weak and lethargic and will continue to have PT and OT evaluation Pulmonary edema B/l Pleural effusion: Likely has acute diastolic heart failure secondary to A. fib with RVR. CXR suggestive of congestion and Rt > Lt pleural effusion. Patient on Lasix per nephrology for hyponatremia management. Patient maintaining on room air. Pulm on board: s/p Rt thoracentesis 04/06, 1300 mL of serous fluid removed. F/u w/ pleural studies. -Pleural aspirate is transudative likely from CHF Pt reports feeling better w/ breathing after thoracentesis. Has been getting Lasix Will watch for any fluid overload Weakness: Multifactorial complicated with poor appetite. PT/OT when able. Will likely need placement. She has been accepted to [facility] Remains very weak and lethargic to be transferred today We will continue to have physical therapy evaluation Carbuncle/furuncle of trunk:: Status post antibiotic. Other chronic medical conditions: HTN --> continue home meds as and when able. DVT prophylaxis: Fantastellakennedy resumed CODE STATUS: Full code PT/OT, CM to assist w/ DC planning. likely can dc to placement. Will need to stay in the hospital for a few more days Admission and Anticipated Discharge Date Admission Date: March 26, 2022 Subjective 04/11/2022 The patient was seen and examined in telemetry unit She has been very weak and lethargic today and did not participate in physical therapy Denies any chest pain or palpitation Her blood pressure remains on the lower side at 94/65 04/12/2022 The patient was seen and examined in telemetry unit She has been stable but remains very weak and lethargic Denies any chest pain and/or palpitation and no shortness of breath at rest 04/13/2022 The patient was seen and examined in telemetry unit She feels a little bit better today and is out of bed on a chair Remains weak and lethargic but not in any acute distress Has been requiring about 3 L of oxygen to maintain saturation 04/14/2022 The patient was seen and examined in telemetry unit She is a status post IV cyclophosphamide therapy Remains extremely lethargic and drowsy Denies any other significant symptoms except weakness Review of Systems Review of Systems: All systems reviewed and are unremarkable except as noted below Respiratory: Minimal shortness of breath at rest Neurologic: Generalized weakness Physical Exam 2 Physical Exam: Sitting on a chair with very lethargic Constitutional: well developed, well nourished, + ill appearing and + obese Eyes: PERRL, conjunctivae normal, anicteric sclerae ENMT: external ear and nose normal, oropharynx normal Neck: trachea midline, no thyromegaly Respiratory: no respiratory distress Auscultation: + diminished lung sounds and + crackles (Minimal crackles at the bases) Cardiovascular: Rate/Rhythm: regular rate, regular rhythm and + irregularly irregular; not tachycardic Heart Sounds: normal S1 and normal S2; no murmur Extremities: + edema (Trace edema bilaterally) Gastrointestinal (Abdomen): Inspection/Auscultation: normal bowel sounds; abdomen not distended Percussion/Palpation: abdomen soft; abdomen nontender Neurologic: normal touch/pain/proprioception and moves all extremities; no focal motor deficits Psychiatric: A+Ox3, euthymic affect Lymphatic: no cervical or axillary lymphadenopathy Results & Data Results & Data ([facility]) Vital Signs (Past 12 Hours) Vital Signs Temp Pulse Pulse Resp BP Pulse Ox O2 Del Method 04/14/22 08:00 Nasal Cannula 04/14/22 13:45 94 Nasal Cannula 04/14/22 12:51 94 Nasal Cannula 04/14/22 11:00 36.7 C 90 20 115/80 97 Nasal Cannula 04/14/22 07:54 89 04/14/22 07:00 36.7 C 83 18 127/75 89 L Room Air 04/14/22 03:32 36.7 C 88 20 113/75 92 Room Air O2 Flow Rate 04/14/22 08:00 2 04/14/22 13:45 2 04/14/22 12:51 2 04/14/22 11:00 2 04/14/22 07:54 04/14/22 07:00 04/14/22 03:32 Laboratory Results Short CBC 04/14/22 Range/Units 06:00 WBC 12.40 H (4.8-10.8) K/ul Hgb 14.5 (12.0-16.0) g/dl Hct 44.4 (34.1-44.9) % Plt Count 126 L (130-400) K/uL BMP 04/14/22 06:00 Sodium 138 Potassium 4.9 Chloride 98 Carbon Dioxide 32 BUN 49 H Creatinine 0.74 Glucose 160 H Calcium 11.9 H Liver Function 04/14/22 Range/Units 06:00 Total Bilirubin 3.8 H (0.2-1.0) mg/dl AST 35 (13-39) U/L ALT 18 (7-52) U/L Alkaline Phosphatase 54 (34-104) U/L Albumin 3.0 L (3.4-5.0) gm/dl Medications Administered Current Inpatient Medications Acetaminophen (Acetaminophen 500 Mg Tab) 1,000 mg PO Q8H PRN PRN Reason: Pain Stop: 04/29/22 14:02 Last Admin: 04/06/22 21:24 Dose: 1,000 mg Allopurinol (Allopurinol 100 Mg Tab) 200 mg PO DAILY LINDA Stop: 05/14/22 08:59 Last Admin: 04/14/22 11:05 Dose: 200 mg Apixaban (Apixaban 5 Mg Tablet) 5 mg PO BID LINDA Stop: 05/07/22 20:59 Last Admin: 04/14/22 08:59 Dose: 5 mg Cyanocobalamin (Cyanocobalamin 1000 Mcg/Ml Vial) 1,000 mcg IM QAM [facility] Stop: 05/12/22 09:29 Last Admin: 04/14/22 08:59 Dose: 1,000 mcg Diphenhydramine HCl (Diphenhydramine 50 Mg/Ml Vial) 50 mg IV ONE PRN PRN Reason: Hypersensitivity Reaction Stop: 04/15/22 18:00 Epinephrine HCl (Epinephrine Inj 1 Mg/Ml Amp) 0.3 mg IM ONE PRN PRN Reason: Hypersensitivity Reaction Stop: 04/15/22 18:00 Furosemide (Furosemide Inj 20 Mg/2 Ml Vial) 10 mg IV Q8 [facility] Stop: 05/12/22 13:59 Last Admin: 04/14/22 14:54 Dose: 10 mg Hydrocortisone Sodium Succinate (Hydrocortisone Sod Succinate 100 Mg/2 Ml Vial) 100 mg IV ONE PRN PRN Reason: Hypersensitivity Reaction Stop: 04/15/22 18:00 Famotidine 20 mg/ Syringe 5 mls @ 2.5 mls/min IV ONE PRN PRN Reason: HYPERSENSITIVITY REACTION Stop: 05/14/22 10:00 Methylprednisolone 125 mg/ (Syringe) 2 mls @ 1.5 mls/min IV ONE PRN PRN Reason: HYPERSENSITIVITY REACTION Stop: 05/14/22 10:01 Sodium Chloride (Nss 1000ml) 1,000 mls @ 250 mls/hr IV .Q4H LINDA Stop: 04/14/22 15:59 Last Admin: 04/14/22 13:52 Dose: 250 mls/hr Lidocaine (Lidocaine 5% 1 Patch) 1 patch TD QAM LINDA Stop: 05/03/22 10:29 Last Admin: 04/14/22 08:59 Dose: 1 patch Losartan Potassium (Losartan Potassium 25 Mg Tab) 25 mg PO DAILY LINDA Stop: 04/26/22 08:59 Last Admin: 04/07/22 08:14 Dose: 25 mg Melatonin (Melatonin 3 Mg Tab) 6 mg PO HS LINDA Stop: 05/07/22 20:59 Last Admin: 04/13/22 19:41 Dose: 6 mg Metoprolol Succinate (Metoprolol Succ 25mg Ext Rel Tab) 25 mg PO DAILY LINDA Stop: 05/07/22 08:59 Last Admin: 04/14/22 08:59 Dose: 25 mg Metoprolol Tartrate (Metoprolol Tartrate 1 Mg/Ml Vial) 5 mg IV Q2H PRN PRN Reason: Tachycardia Stop: 04/25/22 21:59 Last Admin: 04/04/22 05:09 Dose: 5 mg Miscellaneous (Remove Lidoderm Patch) 1 each N/A DAILY@2100 [facility] Stop: 05/03/22 20:59 Last Admin: 04/13/22 19:47 Dose: 1 each Morphine Sulfate (Morphine Sulfate 2 Mg/Ml Carp) 1 mg IV Q6H PRN PRN Reason: Severe Pain Stop: 04/18/22 17:16 Last Admin: 04/04/22 17:41 Dose: 1 mg Multivitamins (Multivitamin Tab) 1 tab PO QAM LINDA Stop: 04/26/22 08:59 Last Admin: 04/14/22 08:59 Dose: 1 tab Nystatin (Nystatin Powder 15gm Btl) 1 appln EXT BID LINDA Stop: 05/11/22 20:59 Last Admin: 04/14/22 09:01 Dose: 1 appln Paroxetine HCl (Paroxetine Hcl 10 Mg Tab) 10 mg PO DAILY LINDA Stop: 04/27/22 12:44 Last Admin: 04/14/22 08:59 Dose: 10 mg Potassium Chloride (Potassium Chloride Crtab 20 Meq Tabcr) 20 meq PO BID LINDA Stop: 04/28/22 08:59 Last Admin: 04/03/22 17:07 Dose: Not Given Prednisone (Prednisone 20 Mg Tab) 110 mg PO DAILY LINDA Stop: 05/12/22 09:44 Last Admin: 04/14/22 08:58 Dose: 110 mg
[2022-04-14] MEDS: MELATONIN 3 MG TAB PO SCH (19:59)
[2022-04-15] MEDS: FUROSEMIDE INJ 20 MG/2 ML VIAL IV SCH (05:36)
[2022-04-15] MEDS ORDERED: HYDROCORTISONE SOD SUCCINATE 100 MG/2 ML VIAL IV PRN (06:00)
[2022-04-15] MEDS ORDERED: EPINEPHrine INJ 1 MG/ML AMP IM PRN (06:00)
[2022-04-15] MEDS ORDERED: diphenhydrAMINE 50 MG/ML VIAL IV PRN (06:00)
[2022-04-15 07:15] LABS: BUN Creatinine Ratio 60.6 (10-20); Creatinine Clr Calc Pharmacy 57.4 ml/min; Est GFR (African American) 60.4 ml/min; Est GFR (Non-African American) 52.1 ml/min; Phosphorus 4.1 mg/dl (2.5-4.9); Potassium 5.2 mmol/L (3.5-5.1); Uric Acid 4.9 mg/dl (2.6-7.2)
[2022-04-15] MEDS: METOPROLOL SUCC 25MG EXT REL TAB PO SCH (07:59)
[2022-04-15 08:07] LABS: Hemoglobin 14.4 g/dl (12.0-16.0); Mean Corpuscular Hemoglobin 30.5 pg (25.0-34.0); Mean Corpuscular Hgb Conc 31.3 g/dL (32.0-36.0); Mean Corpuscular Volume 97.5 fL (80.0-100.0); Mean Platelet Volume 12.6 fL (9.4-12.3); Nucleated RBC # (auto) 0.03 K/uL (0-0); Nucleated RBC % (auto) 0.2 %; Platelet Count 128 K/uL (130-400); RDW Coefficient of Variation 21.2 % (11.5-14.5); RDW Standard Deviation 70.7 fL (36.4-46.3); Red Blood Count 4.72 M/uL (3.93-5.22); White Blood Count 13.38 K/ul (4.8-10.8)
[2022-04-15] MEDS: APIXABAN 5 MG TABLET PO SCH ×2 (08:26→20:02)
[2022-04-15] MEDS: predniSONE 20 MG TAB PO SCH (08:26)
[2022-04-15] MEDS: PARoxetine HCL 10 MG TAB PO SCH (08:26)
[2022-04-15] MEDS: allopurinoL 100 MG TAB PO SCH (08:26)
[2022-04-15] MEDS: MULTIVITAMIN TAB PO SCH (08:26)
[2022-04-15 08:27] LABS: Anisocytosis Present; Basophils # (auto) 0.02 K/uL (0-0.2); Basophils % (auto) 0.1 %; Echinocytes 1+; Immature Granulocytes # (auto) 0.08 K/uL (0.00-0.02); Immature Granulocytes % (auto) 0.6 %; Lymphocytes # (auto) 0.46 K/uL (1.2-3.4); Lymphocytes % (auto) 3.4 %; Monocytes % (auto) 4.5 %; Neutrophils # (auto) 12.22 K/uL (1.4-6.5); Neutrophils % (auto) 91.4 %; Polychromasia 1+
[2022-04-15] MEDS: NYSTATIN POWDER 15GM BTL EXT SCH ×2 (08:27→20:02)
[2022-04-15] MEDS: LIDOCAINE 5% 1 PATCH TD SCH (08:27)
[2022-04-15] MEDS: CYANOCOBALAMIN 1000 MCG/ML VIAL IM SCH (08:27)
--- NOTE | 2022-04-15 14:02 | Nephrology Progress Note ---
Date of Service April 15, 2022 Assessment & Plan (1) Disorder of fluid or electrolyte: Plan: volume overload w/ past hypervolemic hyponatremia (sodium now normalized) also w/ mild and today moderate hypercalcemia (s/p zometa 04/13) and past hypophosphatemia > on phos repletion on 04/10; phos now repleted. TSH wnl. Hypervolemic hyponatremia with likely background SIADH >> sNa plateaud at 132 x 72 hrs then up to 137 04/12 with diuretics on hold 04/07 until 04/12; K borderline today and supplements approrpiately held na did improve a bit after some iv lasix; edema OK but more dyspneic and today needing 02NC pt dx'd w/ aggressive large b cell lymphoma > started high dose steroids / allopurinol on 04/12; cyclophosphomide per heme on 04/14 >attribute hypercalcemia from lymphoma/granulomatous; plateau'd; no indication for fluids at this time; PTH low at 13; 25 OHD 31 -f/u pending 1, 25 dihydroxy D, PTHrp -continue liberalized fluid limit 1.5L ->>given change in renal function held her lasix today midday dose >> could give 10 mg IV ON prn dyspnea, for now would observe and reevaluate in AMher dyspnea -calcium coming down now w/ zometa -continue lower sodium diet -monitor volume status on steroids -K acceptable for now > cont to hold supplements K -daily bmp and phos, uric acid mary at lymphoma therapy begins - so ordered Admission and Anticipated Discharge Date Admission Date: March 26, 2022 Subjective still deeply fatigued with generalized weakness. states her breathing is "short;" minimal po. grandson at bedside Review of Systems Review of Systems: All systems reviewed & are unremarkable except as noted in Subjective (limited by pt falling in and out of sleep) Physical Exam Constitutional: well developed, well nourished, + frail appearing, cooperative and + lethargic; no acute distress Eyes: EOM intact bilaterally ENMT: Ears: no external ear abnormality Nose: no external nose abnormality Mouth: + dry oral mucous membranes Neck: no nuchal rigidity Respiratory: normal respiratory effort; no respiratory distress, no labored breathing and no cough Auscultation: + diminished lung sounds Cardiovascular: Rate/Rhythm: regular rate and regular rhythm Extremities: + edema (trace) Gastrointestinal (Abdomen): Inspection/Auscultation: normal bowel sounds Percussion/Palpation: abdomen soft; abdomen nontender Musculoskeletal: Extremities: strength 5/5 throughout (marked generalized weakness) Skin: no rashes, warm and dry Psychiatric: Orientation: oriented x 3 Genitourinary: galarza + w/ darker yellow urine Results & Data ([facility]) Vital Signs (Past 12 Hours) Vital Signs Temp Pulse Pulse Resp BP Pulse Ox O2 Del Method 04/15/22 11:28 36.6 C 90 18 105/65 91 Nasal Cannula 04/15/22 09:57 Nasal Cannula 04/15/22 07:33 36.8 C 90 16 97/67 L 92 Nasal Cannula 04/15/22 03:00 36.9 C 88 18 103/74 92 Nasal Cannula O2 Flow Rate 04/15/22 11:28 2 04/15/22 09:57 2 04/15/22 07:33 2 04/15/22 03:00 Laboratory Results 04/15/22 05:58 04/15/22 05:52
--- NOTE | 2022-04-15 15:17 | Hospitalist Progress Note ---
Date of Service April 15, 2022 Assessment & Plan (1) Diffuse large B-cell lymphoma: Plan: Appreciate hematology input and recommendation Biopsy of the cervical node shows a diffuse large B-cell lymphoma Has radiologically widespread disease with stage III-IV Likely has marrow infiltration as platelet counts are going down Patient is complaining more lethargy Will start prednisone 1 mg/kg body weight daily for 5 days and allopurinol 300 mg daily Plan to start cyclophosphamide on Sunday Discussed with the patient and the Prognosis remains poor Clinically a little bit better but remains weak and lethargic Status post intravenous cyclophosphamide-first dose of chemo started on 04/14/2022 Patient remains weak and lethargic but does not have any other acute symptoms-no rash and no nausea stomach upset and no shortness of breath Has been getting minimal intravenous fluid and will monitor for any fluid overload-labs will be monitored Received first dose of intravenous cyclophosphamide yesterday - 04/14/2022 Remains stable today and looks a little better compared with yesterday Labs are unremarkable Cervical lymphadenopathy Concern for primary neoplasm within the right palatine tonsils Concern for neoplasm [see imaging on 04/05 CTA neck]. Pt made aware, RN in the room and communicated to him as well. Updated and discussed with oncology 04/07, patient does have a history of breast cancer though this was apparently early stage. Recommends CT scan of the chest/abdomen/pelvis. Also recommends MRI of brain with and without but it is not possible for MRI policy of our hospital. Recommends ENT consult for possibl e proximal aerodigestive check. Recommends cervical lymph node biopsy. 04/06 CT AP: Partially imaged pathologic mediastinal and left axillary LAD in conjunction with a few mesenteric nodules. Recommends oncologic work-up. Prior hysterectomy/soft tissue nodules abutting the vaginal cuff measure up to 4.3 x 2.9 cm. Left greater than right pleural effusion. 04/06 CT chest: 1. Supraclavicular, left axillary, and mediastinal lymphadenopathy likely representing metastatic disease or lymphoma. 2. Small bilateral pleural effusions most pronounced on the left. No pneumothorax status post thoracentesis. 3. Patchy groundglass airspace opacities seen throughout the majority of the right lower lobe. This could be due to an aspiration pneumonia or reexpansion pulmonary edema given the recent thoracentesis. 4. Small to moderate pericardial effusion. 5. Possible right posterior pleural soft tissue nodules. 6. Additional findings as described above. Oncology/pulmonology/ENT on board. Status post right thoracentesis 04/06, 1300 mL of serous fluid removed, follow-up with pleural studies. Pl fl patho w/ no malig cells. 04/07: Successful ultrasound-guided fine-needle aspiration and core needle biopsy of her left axillary lymph node. --> Follow-up with lymph node pathology. F/u w/ oncology as OP. Calcium remains elevated at more than 11 likely secondary to possible lymphoma Will observe for now Hypercalcemia Secondary to lymphoma Will need Zometa-await nephrology input Received Zometa yesterday Calcium level is little bit down at 11.9 today Calcium has been improving (2) Persistent atrial fibrillation: Plan 76 years old obese female with significant past medical history of paroxysmal atrial fibrillation, hypertension, hyperlipidemia, chronic rhinitis and history of breast cancer apparently has been complaining of generally weak and not feeling well for the last 1 week [employer]. She is being managed for the following: A. fib with RVR: History of such, on beta-vilma and Eliquis. Presented with 1 week history of weakness and shortness of breath on exertion. 03/27 echo: EF 45 to 50%. Mild global hypokinesis. Mild concentric LVH. A. fib with RVR. Status post IV diltiazem and IV beta-vilma. Could not tolerate IV Cardizem drip due to low blood pressure, heart rate was not responding even after digoxin. Heart rate remained elevated despite amiodarone. Status post cardioversion and reversal to sinus rhythm. Went back to A. fib with RVR with borderline low blood pressure. Cardiology on board, 03/30 cardioversion, 04/03 pacer with ventricular lead, 04/04 AV node ablation. Post ablation EKG with paced rhythm, patient with no chest pain. Rate remains controlled Continue to monitor over telemetry. c/w eliquis. Metoprolol/losartan on hold d/t soft BP---> metoprolol resumed 04/09, continue to monitor. f/u cardio as OP. Heart rate is well controlled and CHF seems to be improved Remains very weak and lethargic secondary to multiple medical problems Hemodynamically stable Hyponatremia: Admitting sodium of 121, as low as 119 earlier in admission. Likely secondary to poor p.o. intake. Nephrology on board, managing sodium level, Na 132 today. Patient does not like urea and has refused it. Patient w/ somewhat improving appetite. Banking Consultant consulted. encourage protein intake, low sodium diet. Lasix on hold due to soft BP. Na maintaining consistency above 130. Sodium level has gone up to 135 Small dose of oral Lasix will be started from tomorrow with potassium supplement Likely TIA: Post AV node ablation on 04/04/2022, patient was a stroke alert, apparently had right-sided facial droop with dysarthria and right-sided extremity weakness. 04/04 CT head was negative for any bleed. f/u CT Head 04/05 w/ no new acute findings. Received 300 Mg [place] aspirin. Neurologically doing better. LDL 61. Neuro evaluated. Pt unable to have Brain MRI due to recent pacemaker placement per hospital policy per MRI department. Her other imagings as below: 04/05 CTA Head: 1. No acute infarct or intracranial hemorrhage. 2. No significant stenosis, occlusion, or aneurysm within the [place]. 04/05 CTA Neck: 1. No stenosis or dissection within the bilateral common carotid, cervical internal carotid or vertebral arteries. 2. Pathologic bilateral cervical lymphadenopathy, greater on the right. This is consistent with a neoplastic process and favors metastatic disease although lymphoma could appear similar. Potential primary neoplasm within the right palatine tonsils. These nodes would be amenable to ultrasound-guided biopsy. 3. Moderate to large right pleural effusion, partially imaged on this exam. Video swallow on her doesn't show aspiration but has esophageal dysmotility. Recommends GI consult. Diet recs would beeasy to chew, slippery, aspiration and reflux precautions. GI evaluated 04/07, no intervention for now; f/u w/ GI as OP. Remains very weak and lethargic and will continue to have PT and OT evaluation Pulmonary edema B/l Pleural effusion: Likely has acute diastolic heart failure secondary to A. fib with RVR. CXR suggestive of congestion and Rt > Lt pleural effusion. Patient on Lasix per nephrology for hyponatremia management. Patient maintaining on room air. Pulm on board: s/p Rt thoracentesis 04/06, 1300 mL of serous fluid removed. F/u w/ pleural studies. -Pleural aspirate is transudative likely from CHF Pt reports feeling better w/ breathing after thoracentesis. Has been getting Lasix Will watch for any fluid overload Weakness: Multifactorial complicated with poor appetite. PT/OT when able. Will likely need placement. [facility] Remains very weak and lethargic to be transferred today We will continue to have physical therapy evaluation Carbuncle/furuncle of trunk:: Status post antibiotic. Other chronic medical conditions: HTN --> continue home meds as and when able. DVT prophylaxis: Eliquis resumed CODE STATUS: Full code PT/OT, CM to assist w/ DC planning. likely can dc to placement. Will need to stay in the hospital for a few more days Admission and Anticipated Discharge Date Admission Date: March 26, 2022 Subjective 04/11/2022 The patient was seen and examined in telemetry unit She has been very weak and lethargic today and did not participate in physical therapy Denies any chest pain or palpitation Her blood pressure remains on the lower side at 94/65 04/12/2022 The patient was seen and examined in telemetry unit She has been stable but remains very weak and lethargic Denies any chest pain and/or palpitation and no shortness of breath at rest 04/13/2022 The patient was seen and examined in telemetry unit She feels a little bit better today and is out of bed on a chair Remains weak and lethargic but not in any acute distress Has been requiring about 3 L of oxygen to maintain saturation 04/14/2022 The patient was seen and examined in telemetry unit She is a status post IV cyclophosphamide therapy Remains extremely lethargic and drowsy Denies any other significant symptoms except weakness 04/15/2022 The patient was seen and examined in telemetry unit She is a status post first dose of intravenous cyclophosphamide yesterday- 04/14/2022 Has been stable and denies any significant symptoms Clinically looks better today Review of Systems Review of Systems: All systems reviewed and are unremarkable except as noted below Respiratory: Minimal shortness of breath at rest Neurologic: Generalized weakness Physical Exam Physical Exam: Sitting on a chair with very lethargic Constitutional: well developed, well nourished, + ill appearing and + obese Eyes: PERRL, conjunctivae normal, anicteric sclerae ENMT: external ear and nose normal, oropharynx normal Neck: trachea midline, no thyromegaly Respiratory: no respiratory distress Auscultation: + diminished lung sounds and + crackles (Minimal crackles at the bases) Cardiovascular: Rate/Rhythm: regular rate, regular rhythm and + irregularly irregular; not tachycardic Heart Sounds: normal S1 and normal S2; no murmur Extremities: + edema (Trace edema bilaterally) Gastrointestinal (Abdomen): Inspection/Auscultation: normal bowel sounds; abdomen not distended Percussion/Palpation: abdomen soft; abdomen nontender Musculoskeletal: No acute arthritis involving any joint Neurologic: normal touch/pain/proprioception and moves all extremities; no focal motor deficits Psychiatric: A+Ox3, euthymic affect Lymphatic: no cervical or axillary lymphadenopathy Results & Data Results & Data ([facility]) Vital Signs (Past 12 Hours) Vital Signs Temp Pulse Resp BP Pulse Ox O2 Del Method O2 Flow Rate 04/15/22 11:28 36.6 C 90 18 105/65 91 Nasal Cannula 2 04/15/22 09:57 Nasal Cannula 2 04/15/22 07:33 36.8 C 90 16 97/67 L 92 Nasal Cannula 2 Laboratory Results Short CBC 04/15/22 Range/Units 05:58 WBC 13.38 H (4.8-10.8) K/ul Hgb 14.4 (12.0-16.0) g/dl Hct 46.0 H (34.1-44.9) % Plt Count 128 L (130-400) K/uL BMP 04/15/22 05:52 Sodium 140 Potassium 5.2 H Chloride 102 Carbon Dioxide 32 BUN 63 H Creatinine 1.04 D Glucose 171 H Calcium 11.0 H Medications Administered Current Inpatient Medications Acetaminophen (Acetaminophen 500 Mg Tab) 1,000 mg PO Q8H PRN PRN Reason: Pain Stop: 04/29/22 14:02 Last Admin: 04/06/22 21:24 Dose: 1,000 mg Allopurinol (Allopurinol 100 Mg Tab) 200 mg PO DAILY LINDA Stop: 05/14/22 08:59 Last Admin: 04/15/22 08:26 Dose: 200 mg Apixaban (Apixaban 5 Mg Tablet) 5 mg PO BID LINDA Stop: 05/07/22 20:59 Last Admin: 04/15/22 08:26 Dose: 5 mg Cyanocobalamin (Cyanocobalamin 1000 Mcg/Ml Vial) 1,000 mcg IM QAM LINDA Stop: 05/12/22 09:29 Last Admin: 04/15/22 08:27 Dose: 1,000 mcg Diphenhydramine HCl (Diphenhydramine 50 Mg/Ml Vial) 50 mg IV ONE PRN PRN Reason: Hypersensitivity Reaction Stop: 04/15/22 18:00 Epinephrine HCl (Epinephrine Inj 1 Mg/Ml Amp) 0.3 mg IM ONE PRN PRN Reason: Hypersensitivity Reaction Stop: 04/15/22 18:00 Furosemide (Furosemide Inj 20 Mg/2 Ml Vial) 10 mg IV Q8 LINDA Stop: 05/12/22 13:59 Last Admin: 04/15/22 05:36 Dose: 10 mg Hydrocortisone Sodium Succinate (Hydrocortisone Sod Succinate 100 Mg/2 Ml Vial) 100 mg IV ONE PRN PRN Reason: Hypersensitivity Reaction Stop: 04/15/22 18:00 Famotidine 20 mg/ Syringe 5 mls @ 2.5 mls/min IV ONE PRN PRN Reason: HYPERSENSITIVITY REACTION Stop: 05/14/22 10:00 Methylprednisolone 125 mg/ (Syringe) 2 mls @ 1.5 mls/min IV ONE PRN PRN Reason: HYPERSENSITIVITY REACTION Stop: 05/14/22 10:01 Lidocaine (Lidocaine 5% 1 Patch) 1 patch TD QAM [facility] Stop: 05/03/22 10:29 Last Admin: 04/15/22 08:27 Dose: 1 patch Losartan Potassium (Losartan Potassium 25 Mg Tab) 25 mg PO DAILY LINDA Stop: 04/26/22 08:59 Last Admin: 04/07/22 08:14 Dose: 25 mg Melatonin (Melatonin 3 Mg Tab) 6 mg PO HS LINDA Stop: 05/07/22 20:59 Last Admin: 04/14/22 19:59 Dose: 6 mg Metoprolol Succinate (Metoprolol Succ 25mg Ext Rel Tab) 25 mg PO DAILY LINDA Stop: 05/07/22 08:59 Last Admin: 04/15/22 07:59 Dose: Not Given Metoprolol Tartrate (Metoprolol Tartrate 1 Mg/Ml Vial) 5 mg IV Q2H PRN PRN Reason: Tachycardia Stop: 04/25/22 21:59 Last Admin: 04/04/22 05:09 Dose: 5 mg Miscellaneous (Remove Lidoderm Patch) 1 each N/A DAILY@2100 [facility] Stop: 05/03/22 20:59 Last Admin: 04/14/22 19:59 Dose: 1 each Morphine Sulfate (Morphine Sulfate 2 Mg/Ml Carp) 1 mg IV Q6H PRN PRN Reason: Severe Pain Stop: 04/18/22 17:16 Last Admin: 04/04/22 17:41 Dose: 1 mg Multivitamins (Multivitamin Tab) 1 tab PO QAM LINDA Stop: 04/26/22 08:59 Last Admin: 04/15/22 08:26 Dose: 1 tab Nystatin (Nystatin Powder 15gm Btl) 1 appln EXT BID LINDA Stop: 05/11/22 20:59 Last Admin: 04/15/22 08:27 Dose: 1 appln Paroxetine HCl (Paroxetine Hcl 10 Mg Tab) 10 mg PO DAILY LINDA Stop: 04/27/22 12:44 Last Admin: 04/15/22 08:26 Dose: 10 mg Potassium Chloride (Potassium Chloride Crtab 20 Meq Tabcr) 20 meq PO BID LINDA Stop: 04/28/22 08:59 Last Admin: 04/03/22 17:07 Dose: Not Given Prednisone (Prednisone 20 Mg Tab) 110 mg PO DAILY LINDA Stop: 05/12/22 09:44 Last Admin: 04/15/22 08:26 Dose: 110 mg
[2022-04-15 19:11] LABS: Vitamin D 1,25 62 pg/mL (18-72); Vitamin D3,1,25 62 pg/mL
[2022-04-15] MEDS: MELATONIN 3 MG TAB PO SCH (20:02)
[2022-04-16] MEDS: allopurinoL 100 MG TAB PO SCH (08:31)
[2022-04-16] MEDS: METOPROLOL SUCC 25MG EXT REL TAB PO SCH (08:32)
[2022-04-16] MEDS: NYSTATIN POWDER 15GM BTL EXT SCH ×2 (08:32→20:05)
[2022-04-16] MEDS: CYANOCOBALAMIN 1000 MCG/ML VIAL IM SCH (08:32)
[2022-04-16] MEDS: predniSONE 20 MG TAB PO SCH (08:32)
[2022-04-16] MEDS: LIDOCAINE 5% 1 PATCH TD SCH (08:32)
[2022-04-16] MEDS: PARoxetine HCL 10 MG TAB PO SCH (08:32)
[2022-04-16] MEDS: MULTIVITAMIN TAB PO SCH (08:32)
[2022-04-16] MEDS: APIXABAN 5 MG TABLET PO SCH ×2 (08:32→20:04)
--- NOTE | 2022-04-16 13:09 | Hospitalist Progress Note ---
Date of Service April 16, 2022 Assessment & Plan (1) Diffuse large B-cell lymphoma: Plan: Appreciate hematology input and recommendation Biopsy of the cervical node shows a diffuse large B-cell lymphoma Has radiologically widespread disease with stage III-IV Likely has marrow infiltration as platelet counts are going down Patient is complaining more lethargy Will start prednisone 1 mg/kg body weight daily for 5 days and allopurinol 300 mg daily Plan to start cyclophosphamide on Sunday Discussed with the patient and the Prognosis remains poor Clinically a little bit better but remains weak and lethargic Status post intravenous cyclophosphamide-first dose of chemo started on 04/14/2022 Patient remains weak and lethargic but does not have any other acute symptoms-no rash and no nausea stomach upset and no shortness of breath Has been getting minimal intravenous fluid and will monitor for any fluid overload-labs will be monitored Received first dose of intravenous cyclophosphamide yesterday - 04/14/2022 Remains stable today and looks a little better compared with yesterday Labs are unremarkable Clinically much better today without any significant symptoms except weakness Cervical lymphadenopathy Concern for primary neoplasm within the right palatine tonsils Concern for neoplasm [see imaging on 04/05 CTA neck]. Pt made aware, RN in the room and communicated to him as well. Updated and discussed with oncology 04/07, patient does have a history of breast cancer though this was apparently early stage. Recommends CT scan of the chest/abdomen/pelvis. Also recommends MRI of brain with and without but it is not possible for MRI policy of our hospital. Recommends ENT consult for possible proximal aerodigestive check. Recommends cervical lymph node biopsy. 04/06 CT AP: Partially imaged pathologic mediastinal and left axillary LAD in conjunction with a few mesenteric nodules. Recommends oncologic work-up. Prior hysterectomy/soft tissue nodules abutting the vaginal cuff measure up to 4.3 x 2.9 cm. Left greater than right pleural effusion. 04/06 CT chest: 1. Supraclavicular, left axillary, and mediastinal lymphadenopathy likely representing metastatic disease or lymphoma. 2. Small bilateral pleural effusions most pronounced on the left. No pneumothorax status post thoracentesis. 3. Patchy groundglass airspace opacities seen throughout the majority of the right lower lobe. This could be due to an aspiration pneumonia or reexpansion pulmonary edema given the recent thoracentesis. 4. Small to moderate pericardial effusion. 5. Possible right posterior pleural soft tissue nodules. 6. Additional findings as described above. Oncology/pulmonology/ENT on board. Status post right thoracentesis 04/06, 1300 mL of serous fluid removed, follow-up with pleural studies. Pl fl patho w/ no malig cells. 04/07: Successful ultrasound-guided fine-needle aspiration and core needle biopsy of her left axillary lymph node. --> Follow-up with lymph node pathology. F/u w/ oncology as OP. Calcium remains elevated at more than 11 likely secondary to possible lymphoma No fever and or chills Hypercalcemia Secondary to lymphoma Will need Zometa-await nephrology input Received Zometa yesterday Calcium level is little bit down at 11.9 today Calcium has been improving Will check tomorrow (2) Persistent atrial fibrillation: Plan 76 years old obese female with significant past medical history of paroxysmal atrial fibrillation, hypertension, hyperlipidemia, chronic rhinitis and history of breast cancer apparently has been complaining of generally weak and not feeling well for the last 1 week [employer]. She is being managed for the following: A. fib with RVR: History of such, on beta-vilma and Eliquis. Presented with 1 week history of weakness and shortness of breath on exertion. 03/27 echo: EF 45 to 50%. Mild global hypokinesis. Mild concentric LVH. A. fib with RVR. Status post IV diltiazem and IV beta-vilma. Could not tolerate IV Cardizem drip due to low blood pressure, heart rate was not responding even after digoxin. Heart rate remained elevated despite amiodarone. Status post cardioversion and reversal to sinus rhythm. Went back to A. fib with RVR with borderline low blood pressure. Cardiology on board, 03/30 cardioversion, 04/03 pacer with ventricular lead, 04/04 AV node ablation. Post ablation EKG with paced rhythm, patient with no chest pain. Rate remains controlled Continue to monitor over telemetry. c/w eliquis. Metoprolol/losartan on hold d/t soft BP---> metoprolol resumed 04/09, continue to monitor. f/u cardio as OP. Heart rate is well controlled and CHF seems to be improved Remains very weak and lethargic secondary to multiple medical problems Hemodynamically stable Hyponatremia: Admitting sodium of 121, as low as 119 earlier in admission. Likely secondary to poor p.o. intake. Nephrology on board, managing sodium level, Na 132 today. Patient does not like urea and has refused it. Patient w/ somewhat improving appetite. Dramatic Agent consulted. encourage protein intake, low sodium diet. Lasix on hold due to soft BP. Na maintaining consistency above 130. Sodium level has gone up to 135 Small dose of oral Lasix will be started from tomorrow with potassium supplement Likely TIA: Post AV node ablation on 04/04/2022, patient was a stroke alert, apparently had right-sided facial droop with dysarthria and right-sided extremity weakness. 04/04 CT head was negative for any bleed. f/u CT Head 04/05 w/ no new acute findings. Received 300 Mg HI aspirin. Neurologically doing better. LDL 61. Neuro evaluated. Pt unable to have Brain MRI due to recent pacemaker placement per hospital policy per MRI department. Her other imagings as below: 04/05 CTA Head: 1. No acute infarct or intracranial hemorrhage. 2. No significant stenosis, occlusion, or aneurysm within the craig of [place]. 04/05 CTA Neck: 1. No stenosis or dissection within the bilateral common carotid, cervical internal carotid or vertebral arteries. 2. Pathologic bilateral cervical lymphadenopathy, greater on the right. This is consistent with a neoplastic process and favors metastatic disease although lymphoma could appear similar. Potential primary neoplasm within the right palatine tonsils. These nodes would be amenable to ultrasound-guided biopsy. 3. Moderate to large right pleural effusion, partially imaged on this exam. Video swallow on her doesn't show aspiration but has esophageal dysmotility. Recommends GI consult. Diet recs would beeasy to chew, slippery, aspiration and reflux precautions. GI evaluated 04/07, no intervention for now; f/u w/ GI as OP. Remains very weak and lethargic and will continue to have PT and OT evaluation Pulmonary edema B/l Pleural effusion: Likely has acute diastolic heart failure secondary to A. fib with RVR. CXR suggestive of congestion and Rt > Lt pleural effusion. Patient on Lasix per nephrology for hyponatremia management. Patient maintaining on room air. Pulm on board: s/p Rt thoracentesis 04/06, 1300 mL of serous fluid removed. F/u w/ pleural studies. -Pleural aspirate is transudative likely from CHF Pt reports feeling better w/ breathing after thoracentesis. Has been getting Lasix Will watch for any fluid overload Weakness: Multifactorial complicated with poor appetite. PT/OT when able. Will likely need placement. She has been accepted to [facility] Remains very weak and lethargic to be transferred today We will continue to have physical therapy evaluation Carbuncle/furuncle of trunk:: Status post antibiotic. Other chronic medical conditions: HTN --> continue home meds as and when able. DVT prophylaxis: Sharonda resumed CODE STATUS: Full code PT/OT, CM to assist w/ DC planning. likely can dc to placement. Will need to stay in the hospital for a few more days Admission and Anticipated Discharge Date Admission Date: March 26, 2022 Subjective 04/11/2022 The patient was seen and examined in telemetry unit She has been very weak and lethargic today and did not participate in physical therapy Denies any chest pain or palpitation Her blood pressure remains on the lower side at 94/65 04/12/2022 The patient was seen and examined in telemetry unit She has been stable but remains very weak and lethargic Denies any chest pain and/or palpitation and no shortness of breath at rest 04/13/2022 The patient was seen and examined in telemetry unit She feels a little bit better today and is out of bed on a chair Remains weak and lethargic but not in any acute distress Has been requiring about 3 L of oxygen to maintain saturation 04/14/2022 The patient was seen and examined in telemetry unit She is a status post IV cyclophosphamide therapy Remains extremely lethargic and drowsy Denies any other significant symptoms except weakness 04/15/2022 The patient was seen and examined in telemetry unit She is a status post first dose of intravenous cyclophosphamide yesterday- 04/14/2022 Has been stable and denies any significant symptoms Clinically looks better today 04/16/2022 The patient was seen and examined in telemetry unit She has been feeling a little better today and denies any significant symptoms except weakness Denies any shortness of breath or any pain Review of Systems Review of Systems: All systems reviewed and are unremarkable except as noted below Physical Exam Physical Exam: Sitting on a chair with very lethargic Constitutional: well developed, well nourished, + ill appearing and + obese Eyes: PERRL, conjunctivae normal, anicteric sclerae ENMT: external ear and nose normal, oropharynx normal Neck: trachea midline, no thyromegaly Respiratory: no respiratory distress Auscultation: + diminished lung sounds and + crackles (Minimal crackles at the bases) Cardiovascular: Rate/Rhythm: regular rate, regular rhythm and + irregularly irregular; not tachycardic Heart Sounds: normal S1 and normal S2; no murmur Extremities: + edema (Trace edema bilaterally) Gastrointestinal (Abdomen): Inspection/Auscultation: normal bowel sounds; abdomen not distended Percussion/Palpation: abdomen soft; abdomen nontender Musculoskeletal: No acute arthritis involving any joint Neurologic: normal touch/pain/proprioception and moves all extremities; no focal motor deficits Psychiatric: A+Ox3, euthymic affect Lymphatic: no cervical or axillary lymphadenopathy Results & Data Results & Data ([facility]) Vital Signs (Past 12 Hours) Vital Signs Temp Pulse Pulse Resp BP Pulse Ox O2 Del Method 04/16/22 12:55 Nasal Cannula 04/16/22 11:32 36.6 C 89 18 105/75 91 Nasal Cannula 04/16/22 07:33 36.9 C 90 16 105/73 93 Nasal Cannula 04/16/22 05:36 89 97/65 L 04/16/22 05:05 90 90/61 L 04/16/22 04:49 90 89/59 L 04/16/22 04:13 90 90/57 L 04/16/22 03:32 89 93/61 L 04/16/22 02:51 36.3 C L 90 90 18 92/63 L 95 Nasal Cannula O2 Flow Rate 04/16/22 12:55 2 04/16/22 11:32 2 04/16/22 07:33 2 04/16/22 05:36 04/16/22 05:05 04/16/22 04:49 04/16/22 04:13 04/16/22 03:32 04/16/22 02:51 3 Medications Administered Current Inpatient Medications Acetaminophen (Acetaminophen 500 Mg Tab) 1,000 mg PO Q8H PRN PRN Reason: Pain Stop: 04/29/22 14:02 Last Admin: 04/06/22 21:24 Dose: 1,000 mg Allopurinol (Allopurinol 100 Mg Tab) 200 mg PO DAILY LINDA Stop: 05/14/22 08:59 Last Admin: 04/16/22 08:31 Dose: 200 mg Apixaban (Apixaban 5 Mg Tablet) 5 mg PO BID ON LICENSE OF [facility] Stop: 05/07/22 20:59 Last Admin: 04/16/22 08:32 Dose: 5 mg Cyanocobalamin (Cyanocobalamin 1000 Mcg/Ml Vial) 1,000 mcg IM QAM ON LICENSE OF [facility] Stop: 05/12/22 09:29 Last Admin: 04/16/22 08:32 Dose: 1,000 mcg Furosemide (Furosemide Inj 20 Mg/2 Ml Vial) 10 mg IV Q8 LINDA Stop: 05/12/22 13:59 Last Admin: 04/15/22 05:36 Dose: 10 mg Famotidine 20 mg/ Syringe 5 mls @ 2.5 mls/min IV ONE PRN PRN Reason: HYPERSENSITIVITY REACTION Stop: 05/14/22 10:00 Methylprednisolone 125 mg/ (Syringe) 2 mls @ 1.5 mls/min IV ONE PRN PRN Reason: HYPERSENSITIVITY REACTION Stop: 05/14/22 10:01 Lidocaine (Lidocaine 5% 1 Patch) 1 patch TD QAM ON LICENSE OF [facility] Stop: 05/03/22 10:29 Last Admin: 04/16/22 08:32 Dose: 1 patch Losartan Potassium (Losartan Potassium 25 Mg Tab) 25 mg PO DAILY ON LICENSE OF [facility] Stop: 04/26/22 08:59 Last Admin: 04/07/22 08:14 Dose: 25 mg Melatonin (Melatonin 3 Mg Tab) 6 mg PO HS ON LICENSE OF [facility] Stop: 05/07/22 20:59 Last Admin: 04/15/22 20:02 Dose: 6 mg Metoprolol Succinate (Metoprolol Succ 25mg Ext Rel Tab) 25 mg PO DAILY ON LICENSE OF [facility] Stop: 05/07/22 08:59 Last Admin: 04/16/22 08:32 Dose: 25 mg Metoprolol Tartrate (Metoprolol Tartrate 1 Mg/Ml Vial) 5 mg IV Q2H PRN PRN Reason: Tachycardia Stop: 04/25/22 21:59 Last Admin: 04/04/22 05:09 Dose: 5 mg Miscellaneous (Remove Lidoderm Patch) 1 each N/A DAILY@2100 ON LICENSE OF [facility] Stop: 05/03/22 20:59 Last Admin: 04/15/22 20:02 Dose: 1 each Morphine Sulfate (Morphine Sulfate 2 Mg/Ml Carp) 1 mg IV Q6H PRN PRN Reason: Severe Pain Stop: 04/18/22 17:16 Last Admin: 04/04/22 17:41 Dose: 1 mg Multivitamins (Multivitamin Tab) 1 tab PO QAM LINDA Stop: 04/26/22 08:59 Last Admin: 04/16/22 08:32 Dose: 1 tab Nystatin (Nystatin Powder 15gm Btl) 1 appln EXT BID LINDA Stop: 05/11/22 20:59 Last Admin: 04/16/22 08:32 Dose: 1 appln Paroxetine HCl (Paroxetine Hcl 10 Mg Tab) 10 mg PO DAILY LINDA Stop: 04/27/22 12:44 Last Admin: 04/16/22 08:32 Dose: 10 mg Potassium Chloride (Potassium Chloride Crtab 20 Meq Tabcr) 20 meq PO BID LINDA Stop: 04/28/22 08:59 Last Admin: 04/03/22 17:07 Dose: Not Given Prednisone (Prednisone 20 Mg Tab) 110 mg PO DAILY LINDA Stop: 05/12/22 09:44 Last Admin: 04/16/22 08:32 Dose: 110 mg
[2022-04-16 13:19] LABS: Hematocrit (blood only) 41.9 % (34.1-44.9); Hemoglobin 13.4 g/dl (12.0-16.0); Mean Corpuscular Hemoglobin 30.8 pg (25.0-34.0); Mean Corpuscular Volume 96.3 fL (80.0-100.0); Mean Platelet Volume 12.2 fL (9.4-12.3); Nucleated RBC # (auto) 0.03 K/uL (0-0); Nucleated RBC % (auto) 0.2 %; Platelet Count 105 K/uL (130-400); RDW Coefficient of Variation 20.9 % (11.5-14.5); RDW Standard Deviation 70.9 fL (36.4-46.3); Red Blood Count 4.35 M/uL (3.93-5.22); White Blood Count 14.43 K/ul (4.8-10.8)
[2022-04-16 13:39] LABS: BUN Creatinine Ratio 88.2 (10-20); Calcium 10.1 mg/dl (8.5-10.1); Creatinine Clr Calc Pharmacy 63.3 ml/min; Est GFR (African American) 69.2 ml/min; Est GFR (Non-African American) 59.7 ml/min; Potassium 4.9 mmol/L (3.5-5.1)
--- NOTE | 2022-04-16 16:32 | Nephrology Progress Note ---
Date of Service April 16, 2022 Assessment & Plan (1) Disorder of fluid or electrolyte: Plan: volume overload w/ past hypervolemic hyponatremia (sodium now normalized) also w/ now resolved moderate hypercalcemia (s/p zometa 04/13) and past hypophosphatemia > on phos repletion on 04/10; phos now repleted. TSH wnl. had a bump in renal function yesterday but improved today Hypervolemic hyponatremia with likely background SIADH >> sNa plateaud at 132 x 72 hrs then up to 137 04/12 with diuretics on hold 04/07 until 04/12; K borderline today and supplements approrpiately held na did improve a bit after some iv lasix; edema OK but more dyspneic and today needing 02NC pt dx'd w/ aggressive large b cell lymphoma > started high dose steroids / allopurinol on 04/12; cyclophosphomide per heme on 04/14 >attribute hypercalcemia from lymphoma/granulomatous; plateau'd; no indication for fluids at this time; PTH low at 13; 25 OHD 31 -f/u pending 1, 25 dihydroxy D, PTHrp -continue liberalized fluid limit 1.5L ->>>>given change in renal function her lasix was held yesterday >> will resume bid lasix 10 mg IV starting this evening and reevaluate in am today midday dose -calcium coming down and normalized now w/ zometa -continue lower sodium diet -monitor volume status on steroids -K acceptable for now > cont to hold supplements K -daily bmp and phos, uric acid mary at lymphoma therapy begins - so ordered Admission and Anticipated Discharge Date Admission Date: March 26, 2022 Subjective seen on midday rounds; pt remains exhausted and interacts minimally Review of Systems Review of Systems: Other (limited as above) Physical Exam Constitutional: well developed, well nourished, + frail appearing and + lethargic; no acute distress Eyes: EOM intact bilaterally ENMT: Ears: no external ear abnormality Nose: no external nose abnormality Mouth: + dry oral mucous membranes Neck: no nuchal rigidity Respiratory: normal respiratory effort; no respiratory distress, no labored breathing and no cough Auscultation: + diminished lung sounds Cardiovascular: Rate/Rhythm: regular rate and regular rhythm Extremities: + edema (trace) Gastrointestinal (Abdomen): Inspection/Auscultation: normal bowel sounds Percussion/Palpation: abdomen soft; abdomen nontender Musculoskeletal: Extremities: strength 5/5 throughout (marked generalized weakness) Skin: no rashes, warm and dry Psychiatric: Orientation: oriented x 3 Genitourinary: galarza present w/ grossly pink tinged urine/no clot Results & Data ([facility]) Vital Signs (Past 12 Hours) Vital Signs Temp Pulse Pulse Resp BP Pulse Ox O2 Del Method 04/16/22 15:15 Nasal Cannula 04/16/22 15:36 36.7 C 89 18 94/64 L 92 Nasal Cannula 04/16/22 15:20 89 04/16/22 12:55 Nasal Cannula 04/16/22 11:32 36.6 C 89 18 105/75 91 Nasal Cannula 04/16/22 07:33 36.9 C 90 16 105/73 93 Nasal Cannula 04/16/22 05:36 89 97/65 L 04/16/22 05:05 90 90/61 L 04/16/22 04:49 90 89/59 L O2 Flow Rate 04/16/22 15:15 2 04/16/22 15:36 2 04/16/22 15:20 04/16/22 12:55 2 04/16/22 11:32 2 04/16/22 07:33 2 04/16/22 05:36 04/16/22 05:05 04/16/22 04:49 Laboratory Results 04/16/22 12:59 04/16/22 12:59
[2022-04-16] MEDS: FUROSEMIDE INJ 20 MG/2 ML VIAL IV SCH (20:02)
[2022-04-16] MEDS: MELATONIN 3 MG TAB PO SCH (20:05)
[2022-04-17 07:02] LABS: Hematocrit (blood only) 42.8 % (34.1-44.9); Hemoglobin 13.6 g/dl (12.0-16.0); White Blood Count 13.58 K/ul (4.8-10.8)
[2022-04-17 07:07] LABS: Albumin Globulin Ratio 0.9 (0.9-2); Albumin Level 2.5 gm/dl (3.4-5.0); BUN Creatinine Ratio 96.3 (10-20); Bilirubin,Total 2.8 mg/dl (0.2-1.0); Calcium 9.3 mg/dl (8.5-10.1); Creatinine Clr Calc Pharmacy 71.8 ml/min; Est GFR (African American) 81.8 ml/min; Est GFR (Non-African American) 70.5 ml/min; Globulin 2.7 gm/dl (2.5-4.0); Magnesium 2.6 mg/dl (1.7-2.4); Phosphorus 3.4 mg/dl (2.5-4.9); Potassium 4.3 mmol/L (3.5-5.1); Total Protein 5.2 gm/dl (6.0-8.3)
[2022-04-17 07:13] LABS: Anisocytosis Present; Basophils # (auto) 0.02 K/uL (0-0.2); Basophils % (auto) 0.1 %; Immature Granulocytes # (auto) 0.06 K/uL (0.00-0.02); Immature Granulocytes % (auto) 0.4 %; Lymphocytes % (auto) 1.5 %; Mean Corpuscular Hemoglobin 30.8 pg (25.0-34.0); Mean Corpuscular Hgb Conc 31.8 g/dL (32.0-36.0); Mean Corpuscular Volume 96.8 fL (80.0-100.0); Mean Platelet Volume 12.2 fL (9.4-12.3); Monocytes # (auto) 0.13 K/uL (0.24-0.82); Neutrophils # (auto) 13.17 K/uL (1.4-6.5); Nucleated RBC # (auto) 0.02 K/uL (0-0); Nucleated RBC % (auto) 0.1 %; Platelet Count 88 K/uL (130-400); Polychromasia 1+; RDW Standard Deviation 71.7 fL (36.4-46.3); Red Blood Count 4.42 M/uL (3.93-5.22)
--- NOTE | 2022-04-17 07:34 | Hospitalist Progress Note ---
Date of Service April 17, 2022 Assessment & Plan (1) Diffuse large B-cell lymphoma: Plan: Although still apparently somewhat lethargic she is improving from the end of last week and the calcium and creatinine are both trending towards normal with uric acid levels staying in mid normal range. Will suggest that uric acid be rechecked and if it stays in normal range could stop her allopurinol after dose on 04/18. Given her age and frail performance status will suggest 2 doses of Zarxio today and tomorrow at 480 mcg subcutaneously to mitigate neutropenia and fever risk during this cycle As soon as she is sufficiently stabilized would suggest rehab stay to try to improve performance status in anticipation of more comprehensive multiagent chemotherapy hopefully in approximately 3 to 4 weeks. Plan Recheck uric acid and if stable can continue allopurinol only through tomorrow's dose Zarxio doses today and tomorrow to moderate neutropenia risk Discharged for rehab as soon as hospitalist and cardiology feels she is stable to do so We will follow-up during her rehab stay to assess and plan for subsequent chemotherapy Admission and Anticipated Discharge Date Admission Date: March 26, 2022 Subjective Chart reviewed electronically, patient seems to be doing well Physical Exam Physical Exam: VSS Results & Data Results & Data ([facility]) Vital Signs (Past 12 Hours) Vital Signs Temp Pulse Pulse Pulse Resp BP Pulse Ox 04/17/22 07:20 36.5 C 87 16 161/92 H 99 04/17/22 06:58 89 04/17/22 03:00 36.6 C 90 18 96/64 L 93 04/16/22 22:05 90 04/16/22 23:00 36.4 C L 89 18 97/64 L 93 04/16/22 19:46 O2 Del Method O2 Flow Rate 04/17/22 07:20 Nasal Cannula 2 04/17/22 06:58 04/17/22 03:00 Nasal Cannula 2 04/16/22 22:05 04/16/22 23:00 Nasal Cannula 2 04/16/22 19:46 Nasal Cannula 2 PG Care Time/CCT Total # of Minutes Spent Total Time Spent with Patient: Total time spent is greater than 50% in coordination of care (as documented) at patient's floor/unit and/or counseling patient: Coding Level of Care Code None Diagnoses Diffuse large B-cell lymphoma C83.30
[2022-04-17] MEDS: METOPROLOL SUCC 25MG EXT REL TAB PO SCH (09:33)
[2022-04-17] MEDS: predniSONE 20 MG TAB PO SCH (09:35)
[2022-04-17] MEDS: APIXABAN 5 MG TABLET PO SCH ×2 (09:37→20:06)
[2022-04-17] MEDS: PARoxetine HCL 10 MG TAB PO SCH (09:37)
[2022-04-17] MEDS: allopurinoL 100 MG TAB PO SCH (09:37)
[2022-04-17] MEDS: MULTIVITAMIN TAB PO SCH (09:37)
[2022-04-17] MEDS: NYSTATIN POWDER 15GM BTL EXT SCH ×2 (09:43→20:10)
[2022-04-17] MEDS: LIDOCAINE 5% 1 PATCH TD SCH (09:43)
[2022-04-17] MEDS: CYANOCOBALAMIN 1000 MCG/ML VIAL IM SCH (09:46)
[2022-04-17] MEDS: FUROSEMIDE INJ 20 MG/2 ML VIAL IV SCH (09:49)
[2022-04-17] MEDS: FILGRASTIM 480 MCG/1.6 ML VIAL SQ SCH (09:51)
--- NOTE | 2022-04-17 10:07 | Nephrology Progress Note ---
Date of Service April 17, 2022 Assessment & Plan Admission and Anticipated Discharge Date Admission Date: March 26, 2022 Subjective Assessment & Plan (1) Disorder of fluid or electrolyte: Plan: volume overload w/ past hypervolemic hyponatremia (sodium now normalized) also w/ now resolved moderate hypercalcemia (s/p zometa 04/13) and past hypophosphatemia > on phos repletion on 04/10; phos now repleted. Initially Hypervolemic hyponatremia with likely background SIADH >> sNa plateaud at 132 x 72 hrs then up to 137 04/12 with diuretics on hold 04/07 until 04/12; K borderline today and supplements approrpiately held Na is now high meaning free water deficit but has lot of edema and low BP. very difficult combination pt dx'd w/ aggressive large b cell lymphoma > started high dose steroids / allopurinol on 04/12; cyclophosphomide per heme on 04/14 Attribute hypercalcemia from lymphoma/granulomatous--now normal after zometa. -f/u pending 1, 25 dihydroxy D, PTHrp -continue liberalized fluid limit 1.8--raise a bit -continue lower sodium diet -K acceptable for now Stop supplements K Given rising na--no lasix for now and raise FFR to 1800 ml per day Subjective very weak. Lot less interactive. has edema Review of Systems Review of Systems: Other (limited as above) Physical Exam Constitutional: well developed, well nourished, + frail appearing and + lethargic; no acute distress B Eyes: EOM intact bilaterally ENMT: Ears: no external ear abnormality Nose: no external nose abnormality Mouth: + dry oral mucous membranes Neck: no nuchal rigidity Respiratory: normal respiratory effort; no respiratory distress, no labored breathing and no cough Auscultation: + diminished lung sounds Cardiovascular: Rate/Rhythm: regular rate and regular rhythm Extremities: + edema (trace) Gastrointestinal (Abdomen): Inspection/Auscultation: normal bowel sounds Percussion/Palpation: abdomen soft; abdomen nontender Musculoskeletal: Extremities: strength 5/5 throughout (marked generalized weakness) Skin: no rashes, warm and dry Psychiatric: Orientation: oriented x 3 Genitourinary: galarza present w/ grossly pink tinged urine/no clot Results & Data ([facility]) Vital Signs (Past 12 Hours) Vital Signs Temp Pulse Pulse Pulse Resp BP Pulse Ox 04/17/22 07:20 36.5 C 92 H 16 95/64 L 92 04/17/22 06:58 89 04/17/22 03:00 36.6 C 90 18 96/64 L 93 04/16/22 22:05 90 04/16/22 23:00 36.4 C L 89 18 97/64 L 93 O2 Del Method O2 Flow Rate 04/17/22 07:20 Nasal Cannula 2 04/17/22 06:58 04/17/22 03:00 Nasal Cannula 2 04/16/22 22:05 04/16/22 23:00 Nasal Cannula 2
--- NOTE | 2022-04-17 16:03 | Hospitalist Progress Note ---
Date of Service April 17, 2022 Assessment & Plan (1) Diffuse large B-cell lymphoma: Plan: Appreciate hematology input and recommendation Biopsy of the cervical node shows a diffuse large B-cell lymphoma Has radiologically widespread disease with stage III-IV Likely has marrow infiltration as platelet counts are going down Patient is complaining more lethargy Will start prednisone 1 mg/kg body weight daily for 5 days and allopurinol 300 mg daily Plan to start cyclophosphamide on Sunday Discussed with the patient and the Prognosis remains poor Clinically a little bit better but remains weak and lethargic Status post intravenous cyclophosphamide-first dose of chemo started on 04/14/2022 Patient remains weak and lethargic but does not have any other acute symptoms-no rash and no nausea stomach upset and no shortness of breath Has been getting minimal intravenous fluid and will monitor for any fluid overload-labs will be monitored Received first dose of intravenous cyclophosphamide yesterday - 04/14/2022 Remains stable today and looks a little better compared with yesterday Clinically much better today with decrease in weakness and tiredness and denies any shortness of breath at rest Her labs remains unremarkable and the uric acid is normal Discussed with Dr. Solano and she will be given 2 doses of Neupogen as advised Likely will discharge tomorrow to [facility] Cervical lymphadenopathy Concern for primary neoplasm within the right palatine tonsils Concern for neoplasm [see imaging on 04/05 CTA neck]. Pt made aware, RN in the room and communicated to him as well. Updated and discussed with oncology 04/07, patient does have a history of breast cancer though this was apparently early stage. Recommends CT scan of the chest/abdomen/pelvis. Also recommends MRI of brain with and without but it is not possible for MRI policy of our hospital. Recommends ENT consult for possible proximal aerodigestive check. Recommends cervical lymph node biopsy. 04/06 CT AP: Partially imaged pathologic mediastinal and left axillary LAD in conjunction with a few mesenteric nodules. Recommends oncologic work-up. Prior hysterectomy/soft tissue nodules abutting the vaginal cuff measure up to 4.3 x 2.9 cm. Left greater than right pleural effusion. 04/06 CT chest: 1. Supraclavicular, left axillary, and mediastinal lymphadenopathy likely representing metastatic disease or lymphoma. 2. Small bilateral pleural effusions most pronounced on the left. No pneumothorax status post thoracentesis. 3. Patchy groundglass airspace opacities seen throughout the majority of the right lower lobe. This could be due to an aspiration pneumonia or reexpansion pulmonary edema given the recent thoracentesis. 4. Small to moderate pericardial effusion. 5. Possible right posterior pleural soft tissue nodules. 6. Additional findings as described above. Oncology/pulmonology/ENT on board. Status post right thoracentesis 04/06, 1300 mL of serous fluid removed, follow-up with pleural studies. Pl fl patho w/ no malig cells. 04/07: Successful ultrasound-guided fine-needle aspiration and core needle biopsy of her left axillary lymph node. --> Follow-up with lymph node pathology. F/u w/ oncology as OP. Calcium remains elevated at more than 11 likely secondary to possible lymphoma No fever and or chills Hypercalcemia Secondary to lymphoma Will need Zometa-await nephrology input Received Zometa yesterday Calcium level is little bit down at 11.9 today Calcium has been improving Will check tomorrow-calcium has been normal (2) Persistent atrial fibrillation: Plan: Rate remains controlled Plan 76 years old obese female with significant past medical history of paroxysmal atrial fibrillation, hypertension, hyperlipidemia, chronic rhinitis and history of breast cancer apparently has been complaining of generally weak and not feeling well for the last 1 week [employer]. She is being managed for the following: A. fib with RVR: History of such, on beta-vilma and Eliquis. Presented with 1 week history of weakness and shortness of breath on exertion. 03/27 echo: EF 45 to 50%. Mild global hypokinesis. Mild concentric LVH. A. fib with RVR. Status post IV diltiazem and IV beta-vilma. Could not tolerate IV Cardizem drip due to low blood pressure, heart rate was not responding even after digoxin. Heart rate remained elevated despite amiodarone. Status post cardioversion and reversal to sinus rhythm. Went back to A. fib with RVR with borderline low blood pressure. Cardiology on board, 03/30 cardioversion, 04/03 pacer with ventricular lead, 04/04 AV node ablation. Post ablation EKG with paced rhythm, patient with no chest pain. Rate remains controlled Continue to monitor over telemetry. c/w eliquis. Metoprolol/losartan on hold d/t soft BP---> metoprolol resumed 04/09, continue to monitor. f/u cardio as OP. Heart rate is well controlled and CHF seems to be improved Remains very weak and lethargic secondary to multiple medical problems Hemodynamically stable Likely discharge tomorrow Hyponatremia: Admitting sodium of 121, as low as 119 earlier in admission. Likely secondary to poor p.o. intake. Nephrology on board, managing sodium level, Na 132 today. Patient does not like urea and has refused it. Patient w/ somewhat improving appetite. Watch Assembly Instructor consulted. encourage protein intake, low sodium diet. Lasix on hold due to soft BP. Na maintaining consistency above 130. Sodium level has gone up to 135 Small dose of oral Lasix will be started from tomorrow with potassium supplement Sodium level is 146 Likely TIA: Post AV node ablation on 04/04/2022, patient was a stroke alert, apparently had right-sided facial droop with dysarthria and right-sided extremity weakness. 04/04 CT head was negative for any bleed. f/u CT Head 04/05 w/ no new acute findings. Received 300 Mg TX aspirin. Neurologically doing better. LDL 61. Neuro evaluated. Pt unable to have Brain MRI due to recent pacemaker placement per hospital policy per MRI department. Her other imagings as below: 04/05 CTA Head: 1. No acute infarct or intracranial hemorrhage. 2. No significant stenosis, occlusion, or aneurysm within the [place]. 04/05 CTA Neck: 1. No stenosis or dissection within the bilateral common carotid, cervical internal carotid or vertebral arteries. 2. Pathologic bilateral cervical lymphadenopathy, greater on the right. This is consistent with a neoplastic process and favors metastatic disease although lymphoma could appear similar. Potential primary neoplasm within the right palatine tonsils. These nodes would be amenable to ultrasound-guided biopsy. 3. Moderate to large right pleural effusion, partially imaged on this exam. Video swallow on her doesn't show aspiration but has esophageal dysmotility. Recommends GI consult. Diet recs would beeasy to chew, slippery, aspiration and reflux precautions. GI evaluated 04/07, no intervention for now; f/u w/ GI as OP. Remains very weak and lethargic and will continue to have PT and OT evaluation Pulmonary edema B/l Pleural effusion: Likely has acute diastolic heart failure secondary to A. fib with RVR. CXR suggestive of congestion and Rt > Lt pleural effusion. Patient on Lasix per nephrology for hyponatremia management. Patient maintaining on room air. Pulm on board: s/p Rt thoracentesis 04/06, 1300 mL of serous fluid removed. F/u w/ pleural studies. -Pleural aspirate is transudative likely from CHF Pt reports feeling better w/ breathing after thoracentesis. Has been getting Lasix Will watch for any fluid overload We will continue with current dose of diuretics as per the day care teacher Weakness: Multifactorial complicated with poor appetite. PT/OT when able. Will likely need placement. She has been accepted to [facility] Remains very weak and lethargic to be transferred today We will continue to have physical therapy evaluation Carbuncle/furuncle of trunk:: Status post antibiotic. Other chronic medical conditions: HTN --> continue home meds as and when able. DVT prophylaxis: Eliquis resumed CODE STATUS: Full code PT/OT, CM to assist w/ DC planning. likely can dc to placement. Will need to stay in the hospital for a few more days Admission and Anticipated Discharge Date Admission Date: March 26, 2022 Subjective 04/11/2022 The patient was seen and examined in telemetry unit She has been very weak and lethargic today and did not participate in physical therapy Denies any chest pain or palpitation Her blood pressure remains on the lower side at 94/65 04/12/2022 The patient was seen and examined in telemetry unit She has been stable but remains very weak and lethargic Denies any chest pain and/or palpitation and no shortness of breath at rest 04/13/2022 The patient was seen and examined in telemetry unit She feels a little bit better today and is out of bed on a chair Remains weak and lethargic but not in any acute distress Has been requiring about 3 L of oxygen to maintain saturation 04/14/2022 The patient was seen and examined in telemetry unit She is a status post IV cyclophosphamide therapy Remains extremely lethargic and drowsy Denies any other significant symptoms except weakness 04/15/2022 The patient was seen and examined in telemetry unit She is a status post first dose of intravenous cyclophosphamide yesterday- 04/14/2022 Has been stable and denies any significant symptoms Clinically looks better today 04/16/2022 The patient was seen and examined in telemetry unit She has been feeling a little better today and denies any significant symptoms except weakness Denies any shortness of breath or any pain 04/17/2022 The patient was seen and examined in telemetry unit She has been much better today Denies any significant symptoms except weakness which has been improving No shortness of breath at rest and denies any pain Review of Systems Review of Systems: All systems reviewed and are unremarkable except as noted below Physical Exam Physical Exam: Sitting on a chair without any acute distress Constitutional: well developed, well nourished, + ill appearing and + obese Eyes: PERRL, conjunctivae normal, anicteric sclerae ENMT: external ear and nose normal, oropharynx normal Neck: trachea midline, no thyromegaly Respiratory: no respiratory distress Auscultation: + diminished lung sounds and + crackles (Minimal crackles at the bases) Cardiovascular: Rate/Rhythm: regular rate, regular rhythm and + irregularly irregular; not tachycardic Heart Sounds: normal S1 and normal S2; no murmur Extremities: + edema (Trace edema bilaterally) Gastrointestinal (Abdomen): Inspection/Auscultation: normal bowel sounds; abdomen not distended Percussion/Palpation: abdomen soft; abdomen nontender Musculoskeletal: No acute arthritis involving any joint Neurologic: normal touch/pain/proprioception and moves all extremities; no focal motor deficits Psychiatric: A+Ox3, euthymic affect Lymphatic: no cervical or axillary lymphadenopathy Results & Data Results & Data ([facility]) Vital Signs (Past 12 Hours) Vital Signs Temp Pulse Pulse Resp BP Pulse Ox O2 Del Method 04/17/22 15:22 36.6 C 89 18 100/69 94 Nasal Cannula 04/17/22 15:06 89 04/17/22 11:18 36.3 C L 68 18 98/63 L 95 Nasal Cannula 04/17/22 07:20 36.5 C 92 H 16 95/64 L 92 Nasal Cannula 04/17/22 06:58 89 O2 Flow Rate 04/17/22 15:22 2 04/17/22 15:06 04/17/22 11:18 2 04/17/22 07:20 2 04/17/22 06:58 Laboratory Results Short CBC 04/17/22 Range/Units 06:18 WBC 13.58 H (4.8-10.8) K/ul Hgb 13.6 (12.0-16.0) g/dl Hct 42.8 (34.1-44.9) % Plt Count 88 L (130-400) K/uL BMP 04/17/22 06:18 Sodium 146 H Potassium 4.3 Chloride 106 Carbon Dioxide 38 H BUN 78 H Creatinine 0.81 Glucose 256 H Calcium 9.3 Liver Function 04/17/22 Range/Units 06:18 Total Bilirubin 2.8 H (0.2-1.0) mg/dl AST 21 (13-39) U/L ALT 14 (7-52) U/L Alkaline Phosphatase 54 (34-104) U/L Albumin 2.5 L (3.4-5.0) gm/dl Medications Administered Current Inpatient Medications Acetaminophen (Acetaminophen 500 Mg Tab) 1,000 mg PO Q8H PRN PRN Reason: Pain Stop: 04/29/22 14:02 Last Admin: 04/06/22 21:24 Dose: 1,000 mg Allopurinol (Allopurinol 100 Mg Tab) 200 mg PO DAILY LINDA Stop: 05/14/22 08:59 Last Admin: 04/17/22 09:37 Dose: 200 mg Apixaban (Apixaban 5 Mg Tablet) 5 mg PO BID LINDA Stop: 05/07/22 20:59 Last Admin: 04/17/22 09:37 Dose: 5 mg Cyanocobalamin (Cyanocobalamin 1000 Mcg/Ml Vial) 1,000 mcg IM QAM LINDA Stop: 05/12/22 09:29 Last Admin: 04/17/22 09:46 Dose: 1,000 mcg Filgrastim (Filgrastim 480 Mcg/1.6 Ml Vial) 480 mcg SQ TODAY@0930 LINDA Stop: 04/18/22 09:31 Last Admin: 04/17/22 09:51 Dose: 480 mcg Famotidine 20 mg/ Syringe 5 mls @ 2.5 mls/min IV ONE PRN PRN Reason: HYPERSENSITIVITY REACTION Stop: 05/14/22 10:00 Methylprednisolone 125 mg/ (Syringe) 2 mls @ 1.5 mls/min IV ONE PRN PRN Reason: HYPERSENSITIVITY REACTION Stop: 05/14/22 10:01 Lidocaine (Lidocaine 5% 1 Patch) 1 patch TD QAM LINDA Stop: 05/03/22 10:29 Last Admin: 04/17/22 09:43 Dose: 1 patch Melatonin (Melatonin 3 Mg Tab) 6 mg PO HS LINDA Stop: 05/07/22 20:59 Last Admin: 04/16/22 20:05 Dose: 6 mg Metoprolol Succinate (Metoprolol Succ 25mg Ext Rel Tab) 25 mg PO DAILY LINDA Stop: 05/07/22 08:59 Last Admin: 04/17/22 09:33 Dose: Not Given Metoprolol Tartrate (Metoprolol Tartrate 1 Mg/Ml Vial) 5 mg IV Q2H PRN PRN Reason: Tachycardia Stop: 04/25/22 21:59 Last Admin: 04/04/22 05:09 Dose: 5 mg Miscellaneous (Remove Lidoderm Patch) 1 each N/A DAILY@2100 [facility] Stop: 05/03/22 20:59 Last Admin: 04/16/22 20:05 Dose: 1 each Morphine Sulfate (Morphine Sulfate 2 Mg/Ml Carp) 1 mg IV Q6H PRN PRN Reason: Severe Pain Stop: 04/18/22 17:16 Last Admin: 04/04/22 17:41 Dose: 1 mg Multivitamins (Multivitamin Tab) 1 tab PO QAM LINDA Stop: 04/26/22 08:59 Last Admin: 04/17/22 09:37 Dose: 1 tab Nystatin (Nystatin Powder 15gm Btl) 1 appln EXT BID [facility] Stop: 05/11/22 20:59 Last Admin: 04/17/22 09:43 Dose: 1 appln Paroxetine HCl (Paroxetine Hcl 10 Mg Tab) 10 mg PO DAILY [facility] Stop: 04/27/22 12:44 Last Admin: 04/17/22 09:37 Dose: 10 mg Prednisone (Prednisone 20 Mg Tab) 110 mg PO DAILY [facility] Stop: 05/12/22 09:44 Last Admin: 04/17/22 09:35 Dose: 110 mg
[2022-04-17] MEDS: MELATONIN 3 MG TAB PO SCH (20:05)
[2022-04-18 06:41] LABS: Hematocrit (blood only) 40.6 % (34.1-44.9); Hemoglobin 12.8 g/dl (12.0-16.0); Mean Corpuscular Hemoglobin 31.1 pg (25.0-34.0); Mean Corpuscular Hgb Conc 31.5 g/dL (32.0-36.0); Mean Corpuscular Volume 98.8 fL (80.0-100.0); Mean Platelet Volume 12.1 fL (9.4-12.3); Nucleated RBC # (auto) 0.02 K/uL (0-0); Nucleated RBC % (auto) 0.1 %; Platelet Count 82 K/uL (130-400); RDW Coefficient of Variation 20.8 % (11.5-14.5); Red Blood Count 4.11 M/uL (3.93-5.22); White Blood Count 26.69 K/ul (4.8-10.8)
[2022-04-18 06:46] LABS: Anisocytosis Present; Lymphocytes # (manual) 0.27 K/uL (1.2-3.4); Lymphocytes % (manual) 1 %; Neutrophils # (manual) 26.42 K/uL (1.4-6.5); Neutrophils % (manual) 99 %
[2022-04-18 06:59] LABS: BUN Creatinine Ratio 92.1 (10-20); Calcium 9.6 mg/dl (8.5-10.1); Creatinine Clr Calc Pharmacy 75.9 ml/min; Est GFR (African American) 88.3 ml/min; Est GFR (Non-African American) 76.2 ml/min; Magnesium 2.6 mg/dl (1.7-2.4); Potassium 4.4 mmol/L (3.5-5.1); Uric Acid 5.7 mg/dl (2.6-7.2)
[2022-04-18] MEDS: APIXABAN 5 MG TABLET PO SCH (08:40)
[2022-04-18] MEDS: MULTIVITAMIN TAB PO SCH (08:41)
[2022-04-18] MEDS: NYSTATIN POWDER 15GM BTL EXT SCH (08:43)
[2022-04-18] MEDS: PARoxetine HCL 10 MG TAB PO SCH (08:43)
[2022-04-18] MEDS: LIDOCAINE 5% 1 PATCH TD SCH (08:45)
[2022-04-18] MEDS: CYANOCOBALAMIN 1000 MCG/ML VIAL IM SCH (08:47)
--- NOTE | 2022-04-18 09:55 | Nephrology Progress Note ---
Date of Service April 18, 2022 Assessment & Plan Admission and Anticipated Discharge Date Admission Date: March 26, 2022 Subjective Assessment & Plan (1) Disorder of fluid or electrolyte: Plan: volume overload w/ past hypervolemic hyponatremia (sodium now normalized) also w/ now resolved moderate hypercalcemia (s/p zometa 04/13) and past hypophosphatemia > on phos repletion on 04/10; phos now repleted. Initially Hypervolemic hyponatremia with likely background SIADH >> sNa plateaud at 132 x 72 hrs then up to 137 04/12 with diuretics on hold 04/07 until 04/12; K borderline today and supplements approrpiately held Na is now high meaning free water deficit but has lot of edema and low BP. very difficult combination pt dx'd w/ aggressive large b cell lymphoma > started high dose steroids / allopurinol on 04/12; cyclophosphomide per heme on 04/14 Attribute hypercalcemia from lymphoma/granulomatous--now normal after zometa. -f/u pending 1, 25 dihydroxy D, PTHrp -continue liberalized fluid limit 1.8--raise a bit continue lower sodium diet Given rising na--no diurrtics for now and Stop FFR No diuretics at discharge. repeat BMP in few days at the rehab. However if she starts eating and drinking well then will need diuretics again WBC is 26K now--? infection vs Steroid Induced---Defer to Primary team. Subjective very weak. Lot less interactive. Not eating and drinking much. Review of Systems Review of Systems: Other (limited as above) Physical Exam Constitutional: well developed, well nourished, + frail appearing and + jonah rgic; no acute distress Eyes: EOM intact bilaterally ENMT: Ears: no external ear abnormality Nose: no external nose abnormality Mouth: + dry oral mucous membranes Neck: no nuchal rigidity Respiratory: normal respiratory effort; no respiratory distress, no labored breathing and no cough Auscultation: + diminished lung sounds Cardiovascular: Rate/Rhythm: regular rate and regular rhythm Extremities: + edema (trace) Gastrointestinal (Abdomen): Inspection/Auscultation: normal bowel sounds Percussion/Palpation: abdomen soft; abdomen nontender Musculoskeletal: Extremities: strength 5/5 throughout (marked generalized weakness) Skin: no rashes, warm and dry Psychiatric: Orientation: oriented x 3 Genitourinary: galarza present w/ grossly pink tinged urine/no clot Results & Data ([facility]) Vital Signs (Past 12 Hours) Vital Signs Temp Pulse Pulse Pulse Resp BP Pulse Ox 04/18/22 08:15 04/18/22 07:22 36.5 C 70 18 99/66 L 97 04/18/22 02:20 36.3 C L 89 18 99/67 L 94 04/17/22 23:00 36.3 C L 90 18 97/60 L 92 04/17/22 23:00 89 O2 Del Method O2 Flow Rate 04/18/22 08:15 Nasal Cannula 2 04/18/22 07:22 Room Air 04/18/22 02:20 Nasal Cannula 2 04/17/22 23:00 Nasal Cannula 2 04/17/22 23:00
[2022-04-18] MEDS: FILGRASTIM 480 MCG/1.6 ML VIAL SQ SCH (11:10)
--- NOTE | 2022-04-18 11:14 | Hospitalist Progress Note ---
Date of Service April 18, 2022 Assessment & Plan (1) Diffuse large B-cell lymphoma: Plan: Appreciate hematology input and recommendation Biopsy of the cervical node shows a diffuse large B-cell lymphoma Has radiologically widespread disease with stage III-IV Likely has marrow infiltration as platelet counts are going down Patient is complaining more lethargy Will start prednisone 1 mg/kg body weight daily for 5 days and allopurinol 300 mg daily Plan to start cyclophosphamide on Sunday Discussed with the patient and the Prognosis remains poor Clinically a little bit better but remains weak and lethargic Status post intravenous cyclophosphamide-first dose of chemo started on 04/14/2022 Patient remains weak and lethargic but does not have any other acute symptoms-no rash and no nausea stomach upset and no shortness of breath Has been getting minimal intravenous fluid and will monitor for any fluid overload-labs will be monitored Received first dose of intravenous cyclophosphamide yesterday - 04/14/2022 Remains stable today and looks a little better compared with yesterday Clinically much better today with decrease in weakness and tiredness and denies any shortness of breath at rest Her labs remains unremarkable and the uric acid is normal Discussed with Dr. Solano and she will be given 2 doses of Neupogen as advised Remains stable and has been feeling better both physically and mentally She will be discharged to [facility] to continue physical therapy and other medical care Leukocytosis White count went up to 26,000 Secondary to use of steroid 110 mg daily for the last 5 days and also contributed by use of Neupogen to improve blood count chemo No source of infection Expected to improve with time Cervical lymphadenopathy Concern for primary neoplasm within the right palatine tonsils Concern for neoplasm [see imaging on 04/05 CTA neck]. Pt made aware, RN in the room and communicated to him as well. Updated and discussed with oncology 04/07, patient does have a history of breast cancer though this was apparently early stage. Recommends CT scan of the chest/abdomen/pelvis. Also recommends MRI of brain with and without but it is not possible for MRI policy of our hospital. Recommends ENT consult for possible proximal aerodigestive check. Recommends cervical lymph node biopsy. 04/06 CT AP: Partially imaged pathologic mediastinal and left axillary LAD in conjunction with a few mesenteric nodules. Recommends oncologic work-up. Prior hysterectomy/soft tissue nodules abutting the vaginal cuff measure up to 4.3 x 2.9 cm. Left greater than right pleural effusion. 04/06 CT chest: 1. Supraclavicular, left axillary, and mediastinal lymphadenopathy likely representing metastatic disease or lymphoma. 2. Small bilateral pleural effusions most pronounced on the left. No pn eumothorax status post thoracentesis. 3. Patchy groundglass airspace opacities seen throughout the majority of the right lower lobe. This could be due to an aspiration pneumonia or reexpansion pulmonary edema given the recent thoracentesis. 4. Small to moderate pericardial effusion. 5. Possible right posterior pleural soft tissue nodules. 6. Additional findings as described above. Oncology/pulmonology/ENT on board. Status post right thoracentesis 04/06, 1300 mL of serous fluid removed, follow-up with pleural studies. Pl fl patho w/ no malig cells. 04/07: Successful ultrasound-guided fine-needle aspiration and core needle biopsy of her left axillary lymph node. --> Follow-up with lymph node pathology. F/u w/ oncology as OP. Calcium remains elevated at more than 11 likely secondary to possible lymphoma No fever and or chills Hypercalcemia Secondary to lymphoma Will need Zometa-await nephrology input Received Zometa yesterday Calcium level is little bit down at 11.9 today Calcium has been improving Will check tomorrow-calcium has been normal Calcium level remains normal at 9.6 and uric acid is normal to 5.7-allopurinol has been stopped (2) Persistent atrial fibrillation: Plan: Rate remains controlled Plan 76 years old obese female with significant past medical history of paroxysmal atrial fibrillation, hypertension, hyperlipidemia, chronic rhinitis and history of breast cancer apparently has been complaining of generally weak and not feeling well for the last 1 week 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 She is being managed for the following: A. fib with RVR: History of such, on beta-vilma and Eliquis. Presented with 1 week history of weakness and shortness of breath on exertion. 03/27 echo: EF 45 to 50%. Mild global hypokinesis. Mild concentric LVH. A. fib with RVR. Status post IV diltiazem and IV beta-vilma. Could not tolerate IV Cardizem drip due to low blood pressure, heart rate was not responding even after digoxin. Heart rate remained elevated despite amiodarone. Status post cardioversion and reversal to sinus rhythm. Went back to A. fib with RVR with borderline low blood pressure. Cardiology on board, 03/30 cardioversion, 04/03 pacer with ventricular lead, 04/04 AV node ablation. Post ablation EKG with paced rhythm, patient with no chest pain. Rate remains controlled Continue to monitor over telemetry. c/w eliquis. Metoprolol/losartan on hold d/t soft BP---> metoprolol resumed 04/09, continue to monitor. f/u cardio as OP. Heart rate is well controlled and CHF seems to be improved Remains very weak and lethargic secondary to multiple medical problems Hemodynamically stable Be discharged to [facility] this afternoon Hyponatremia: Admitting sodium of 121, as low as 119 earlier in admission. L ikely secondary to poor p.o. intake. Nephrology on board, managing sodium level, Na 132 today. Patient does not like urea and has refused it. Patient w/ somewhat improving appetite. Refrigerating Machine Operator consulted. encourage protein intake, low sodium diet. Lasix on hold due to soft BP. Na maintaining consistency above 130. Sodium level has gone up to 135 Small dose of oral Lasix will be started from tomorrow with potassium supplement Sodium level is 149-contributed by use of Lasix and fluid restriction We will hold any diuretics for the next few days Advised to have PRP done within 7 days in the facility and determine the use of Lasix Likely TIA: Post AV node ablation on 04/04/2022, patient was a stroke alert, apparently had right-sided facial droop with dysarthria and right-sided extremity weakness. 04/04 CT head was negative for any bleed. f/u CT Head 04/05 w/ no new acute findings. Received 300 Mg OK aspirin. Neurologically doing better. LDL 61. Neuro evaluated. Pt unable to have Brain MRI due to recent pacemaker placement per hospital policy per MRI department. Her other imagings as below: 04/05 CTA Head: 1. No acute infarct or intracranial hemorrhage. 2. No significant stenosis, occlusion, or aneurysm within the [place]. 04/05 CTA Neck: 1. No stenosis or dissection within the bilateral common carotid, cervical internal carotid or vertebral arteries. 2. Pathologic bilateral cervical lymphadenopathy, greater on the right. This is consistent with a neoplastic process and favors metastatic disease although lymphoma could appear similar. Potential primary neoplasm within the right palatine tonsils. These nodes would be amenable to ultrasound-guided biopsy. 3. Moderate to large right pleural effusion, partially imaged on this exam. Video swallow on her doesn't show aspiration but has esophageal dysmotility. Recommends GI consult. Diet recs would beeasy to chew, slippery, aspiration and reflux precautions. GI evaluated 04/07, no intervention for now; f/u w/ GI as OP. Remains very weak and lethargic and will continue to have PT and OT evaluation Pulmonary edema B/l Pleural effusion: Likely has acute diastolic heart failure secondary to A. fib with RVR. CXR suggestive of congestion and Rt > Lt pleural effusion. Patient on Lasix per nephrology for hyponatremia management. Patient maintaining on room air. Pulm on board: s/p Rt thoracentesis 04/06, 1300 mL of serous fluid removed. F/u w/ pleural studies. -Pleural aspirate is transudative likely from CHF Pt reports feeling better w/ breathing after thoracentesis. 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 PT/OT when able. Will likely need placement. She has been accepted to [facility] Remains very weak and lethargic to be transferred today We will continue to have physical therapy evaluation Carbuncle/furuncle of trunk:: Status post antibiotic. Other chronic medical conditions: HTN --> continue home meds as and when able. DVT prophylaxis: Eliquis resumed CODE STATUS: Full code PT/OT, CM to assist w/ DC planning. likely can dc to placement. She is physically and mentally ready to be discharged Admission and Anticipated Discharge Date Admission Date: March 26, 2022 Subjective 04/11/2022 The patient was seen and examined in telemetry unit She has been very weak and lethargic today and did not participate in physical therapy Denies any chest pain or palpitation Her blood pressure remains on the lower side at 94/65 04/12/2022 The patient was seen and examined in telemetry unit She has been stable but remains very weak and lethargic Denies any chest pain and/or palpitation and no shortness of breath at rest 04/13/2022 The patient was seen and examined in telemetry unit She feels a little bit better today and is out of bed on a chair Remains weak and lethargic but not in any acute distress Has been requiring about 3 L of oxygen to maintain saturation 04/14/2022 The patient was seen and examined in telemetry unit She is a status post IV cyclophosphamide therapy Remains extremely lethargic and drowsy Denies any other significant symptoms except weakness 04/15/2022 The patient was seen and examined in telemetry unit She is a status post first dose of intravenous cyclophosphamide yesterday- 04/14/2022 Has been stable and denies any significant symptoms Clinically looks better today 04/16/2022 The patient was seen and examined in telemetry unit She has been feeling a little better today and denies any significant symptoms except weakness Denies any shortness of breath or any pain 04/17/2022 The patient was seen and examined in telemetry unit She has been much better today Denies any significant symptoms except weakness which has been improving No shortness of breath at rest and denies any pain 04/18/2022 The patient was seen and examined in telemetry unit She has been feeling much better and wants to go to [facility] today Remains generally weak but denies any other symptoms No fever and no chills, no cough and no shortness of breath at rest, no abdominal pain nausea and or vomiting Review of Systems Review of Systems: All systems reviewed and are unremarkable except as noted below Physical Exam Physical Exam: Sitting on a chair without any acute distress Constitutional: well developed, well nourished, + ill appearing and + obese Eyes: PERRL, conjunctivae normal, anicteric sclerae ENMT: external ear and nose normal, oropharynx normal Neck: trachea midline, no thyromegaly Respiratory: no respiratory distress Auscultation: + diminished lung sounds and + crackles (Minimal crackles at the bases) Cardiovascular: Rate/Rhythm: regular rate, regular rhythm and + irregularly irregular; not tachycardic Heart Sounds: normal S1 and normal S2; no murmur Extremities: + edema (Trace edema bilaterally) Gastrointestinal (Abdomen): Inspection/Auscultation: normal bowel sounds; abdomen not distended Percussion/Palpation: abdomen soft; abdomen nontender Musculoskeletal: No acute arthritis in any joint Neurologic: normal touch/pain/proprioception and moves all extremities; no focal motor deficits Psychiatric: A+Ox3, euthymic affect Lymphatic: no cervical or axillary lymphadenopathy Results & Data Results & Data ([facility]) Vital Signs (Past 12 Hours) Vital Signs Temp Pulse Pulse Resp BP Pulse Ox O2 Del Method 04/18/22 08:15 Nasal Cannula 04/18/22 07:22 36.5 C 70 18 99/66 L 97 Room Air 04/18/22 02:20 36.3 C L 89 18 99/67 L 94 Nasal Cannula O2 Flow Rate 04/18/22 08:15 2 04/18/22 07:22 04/18/22 02:20 2 Laboratory Results Short CBC 04/18/22 Range/Units 05:49 WBC 26.69 H D (4.8-10.8) K/ul Hgb 12.8 (12.0-16.0) g/dl Hct 40.6 (34.1-44.9) % Plt Count 82 L (130-400) K/uL BMP 04/18/22 05:49 Sodium 149 H Potassium 4.4 Chloride 108 H Carbon Dioxide 39 H BUN 70 H Creatinine 0.76 Glucose 304 H* Calcium 9.6 Medications Administered Current Inpatient Medications Acetaminophen (Acetaminophen 500 Mg Tab) 1,000 mg PO Q8H PRN PRN Reason: Pain Stop: 04/29/22 14:02 Last Admin: 04/06/22 21:24 Dose: 1,000 mg Apixaban (Apixaban 5 Mg Tablet) 5 mg PO BID LINDA Stop: 05/07/22 20:59 Last Admin: 04/18/22 08:40 Dose: 5 mg Cyanocobalamin (Cyanocobalamin 1000 Mcg/Ml Vial) 1,000 mcg IM QAM LINDA Stop: 05/12/22 09:29 Last Admin: 04/18/22 08:47 Dose: 1,000 mcg Famotidine 20 mg/ Syringe 5 mls @ 2.5 mls/min IV ONE PRN PRN Reason: HYPERSENSITIVITY REACTION Stop: 05/14/22 10:00 Methylprednisolone 125 mg/ (Syringe) 2 mls @ 1.5 mls/min IV ONE PRN PRN Reason: HYPERSENSITIVITY REACTION Stop: 05/14/22 10:01 Lidocaine (Lidocaine 5% 1 Patch) 1 patch TD QAM LINDA Stop: 05/03/22 10:29 Last Admin: 04/18/22 08:45 Dose: 1 patch Melatonin (Melatonin 3 Mg Tab) 6 mg PO HS LINDA Stop: 05/07/22 20:59 Last Admin: 11/14/22 20:05 Dose: 6 mg Metoprolol Succinate (Metoprolol Succ 25mg Ext Rel Tab) 25 mg PO DAILY [facility] Stop: 05/07/22 08:59 Last Admin: 04/17/22 09:33 Dose: Not Given Metoprolol Tartrate (Metoprolol Tartrate 1 Mg/Ml Vial) 5 mg IV Q2H PRN PRN Reason: Tachycardia Stop: 04/25/22 21:59 Last Admin: 04/04/22 05:09 Dose: 5 mg Miscellaneous (Remove Lidoderm Patch) 1 each N/A DAILY@2100 [facility] Stop: 05/03/22 20:59 Last Admin: 04/17/22 20:13 Dose: 1 each Morphine Sulfate (Morphine Sulfate 2 Mg/Ml Carp) 1 mg IV Q6H PRN PRN Reason: Severe Pain Stop: 04/18/22 17:16 Last Admin: 04/04/22 17:41 Dose: 1 mg Multivitamins (Multivitamin Tab) 1 tab PO QAM [facility] Stop: 04/26/22 08:59 Last Admin: 04/18/22 08:41 Dose: 1 tab Nystatin (Nystatin Powder 15gm Btl) 1 appln EXT BID [facility] Stop: 05/11/22 20:59 Last Admin: 04/18/22 08:43 Dose: 1 appln Paroxetine HCl (Paroxetine Hcl 10 Mg Tab) 10 mg PO DAILY [facility] Stop: 04/27/22 12:44 Last Admin: 04/18/22 08:43 Dose: 10 mg
[2022-04-18] MEDS: METOPROLOL SUCC 25MG EXT REL TAB PO SCH (12:59)
--- NOTE | 2022-04-18 17:07 | Discharge Summary ---
Date of Service April 18, 2022 Admission HPI Per Admitting Provider She is a 76 years old obese female with significant past medical history of paroxysmal atrial fibrillation, hypertension, hyperlipidemia, chronic rhinitis and history of breast cancer apparently has been complaining of generally weak and not feeling well for the last 1 week. This has been associated with shortness of breath on exertion without any chest pain and/or palpitation. She also noticed to have swelling of the legs but did not know if she has gained any weight or not. She denies any fever and or chills, any nausea no vomiting, any problem with urine and or bowel habit. She does not have any visual and/or other neurological symptoms. She also had a few pimples in the abdominal wall and she has been taking Bactrim for that given by her primary care physician. She was noted to have A. fib with RVR in the emergency room with pulmonary vascular congestion in chest x-ray with a hyponatremia of 121. She was admitted to telemetry unit for continuation of care after starting intravenous diltiazem drip to control the heart rate. Admission Exam Per Admitting Provider Physical Exam: Lying in bed with minimal distress Constitutional: well developed, well nourished, + ill appearing and + obese Eyes: PERRL, conjunctivae normal, anicteric sclerae Neck: trachea midline, no thyromegaly Respiratory: no respiratory distress Auscultation: + diminished lung sounds and + crackles (Minimal crackles at the bases) Cardiovascular: Rate/Rhythm: + tachycardic and + irregularly irregular Heart Sounds: normal S1 and normal S2; no murmur Extremities: + edema (2+ edema bilaterally) Gastrointestinal (Abdomen): Inspection/Auscultation: normal bowel sounds; abdomen not distended Percussion/Palpation: abdomen soft; abdomen nontender A few small boils with ulceration involving the anterior abdominal wall with surrounding inflammation but no drainage Musculoskeletal: No acute arthritis in any joint Neurologic: Alert, awake and oriented x3. No focal sensory or no motor deficit appreciated Psychiatric: A+Ox3, euthymic affect Lymphatic: no cervical or axillary lymphadenopathy Principal Diagnosis Diffuse large B cell lymphoma ,A. fib with RVR status post ablation therapy and placement of biventricular pacemaker, cardiomyopathy with mildly reduced LV systolic function, aortic stenosis, hypertension Discharge Exam Sitting on a chair without any acute distress Constitutional well developed, well nourished, + ill appearing and + obese Eyes PERRL, conjunctivae normal, anicteric sclerae ENMT external ear and nose normal, oropharynx normal Neck trachea midline, no thyromegaly Respiratory no respiratory distress Auscultation: + diminished lung sounds and + crackles (Minimal crackles at the bases) Cardiovascular Rate/Rhythm: regular rate, regular rhythm and + irregularly irregular; not tachycardic Heart Sounds: normal S1 and normal S2; no murmur Extremities: + edema (Trace edema bilaterally) Gastrointestinal (Abdomen) Inspection/Auscultation: normal bowel sounds; abdomen not distended Percussion/Palpation: abdomen soft; abdomen nontender Neurologic normal touch/pain/proprioception and moves all extremities; no focal motor deficits Psychiatric A+Ox3, euthymic affect Lymphatic no cervical or axillary lymphadenopathy Discharge Data Allergies Allergy/AdvReac Type Severity Reaction Status Date / Time No Known Allergies Allergy Verified 03/26/22 17:46 Consultations 03/26/22 17:24 ED Decision to Admit Stat 03/26/22 18:14 Consult Cardiology Routine 03/28/22 08:24 Consult Nephrology Routine 03/29/22 10:50 Consult Cardiology Routine 04/04/22 14:43 Consult Neurology Routine 04/06/22 08:44 Consult Oncology Routine 04/06/22 10:22 Consult Pulmonology Routine 04/06/22 12:51 Consult Otolaryngology (Head and Neck) Routine 04/06/22 15:05 Consult Gastroenterology Routine Procedures Performed Operation Date: 03/30/22 07:45 Actual Procedures p Cardioversion - Nils Antoine MD Operation Date: 04/03/22 13:00 Actual Procedures p Lead LV (No Priopr Implant) - Miguel Lopes MD p Pacer with Ventricular Lead - Miguel Lopes MD Operation Date: 04/04/22 12:00 Actual Procedures p AV Node Ablation - Miguel Lopes MD Ordered Studies 04/03/22 11:15 EP Lab Images for PACS ONCE 04/04/22 07:30 EP Lab Images for PACS ONCE 04/04/22 14:43 CT head/brain wo con Stat 04/05/22 13:51 CT angio neck with con Routine CTA head wo/w [CT angio head wo/w] Routine 04/05/22 22:47 CT head/brain wo con Urgent 04/06/22 11:45 FL video swallow Routine 04/06/22 11:51 sono, invasive monitoring [US point of care ultrasound] Routine 04/06/22 13:44 CT Abd and Pelvis [CT abd pelvis wo con] Routine CT chest without contrast [CT chest diagnostic wo con] Routine 04/07/22 07:00 US biopsy lymph node Routine 04/07/22 10:51 US FNA w/img 1st lesion Routine 04/07/22 21:41 CT head/brain wo con Urgent Hospital Course (1) Diffuse large B-cell lymphoma: Appreciate hematology input and recommendation Biopsy of the cervical node shows a diffuse large B-cell lymphoma Has radiologically widespread disease with stage III-IV Likely has marrow infiltration as platelet counts are going down Patient is complaining more lethargy Will start prednisone 1 mg/kg body weight daily for 5 days and allopurinol 300 mg daily Plan to start cyclophosphamide on Sunday Discussed with the patient and the Prognosis remains poor Clinically a little bit better but remains weak and lethargic Status post intravenous cyclophosphamide-first dose of chemo started on 04/14/2022 Patient remains weak and lethargic but does not have any other acute symptoms-no rash and no nausea stomach upset and no shortness of breath Has been getting minimal intravenous fluid and will monitor for any fluid overload-labs will be monitored Received first dose of intravenous cyclophosphamide yesterday - 04/14/2022 Remains stable today and looks a little better compared with yesterday Clinically much better today with decrease in weakness and tiredness and denies any shortness of breath at rest Her labs remains unremarkable and the uric acid is normal Discussed with Dr. Solano and she will be given 2 doses of Neupogen as advised Remains stable and has been feeling better both physically and mentally She will be discharged to [facility] to continue physical therapy and other medical care Leukocytosis White count went up to 26,000 Secondary to use of steroid 110 mg daily for the last 5 days and also contri buted by use of Neupogen to improve blood count chemo No source of infection Expected to improve with time Cervical lymphadenopathy Concern for primary neoplasm within the right palatine tonsils Concern for neoplasm [see imaging on 04/05 CTA neck]. Pt made aware, RN in the room and communicated to him as well. Updated and discussed with oncology 04/07, patient does have a history of breast cancer though this was apparently early stage. Recommends CT scan of the chest/abdomen/pelvis. Also recommends MRI of brain with and without but it is not possible for MRI policy of our hospital. Recommends ENT consult for possible proximal aerodigestive check. Recommends cervical lymph node biopsy. 04/06 CT AP: Partially imaged pathologic mediastinal and left axillary LAD in conjunction with a few mesenteric nodules. Recommends oncologic work-up. Prior hysterectomy/soft tissue nodules abutting the vaginal cuff measure up to 4.3 x 2.9 cm. Left greater than right pleural effusion. 04/06 CT chest: 1. Supraclavicular, left axillary, and mediastinal lymphadenopathy likely representing metastatic disease or lymphoma. 2. Small bilateral pleural effusions most pronounced on the left. No pneumothorax status post thoracentesis. 3. Patchy groundglass airspace opacities seen throughout the majority of the right lower lobe. This could be due to an aspiration pneumonia or reexpansion pulmonary edema given the recent thoracentesis. 4. Small to moderate pericardial effusion. 5. Possible right posterior pleural soft tissue nodules. 6. Additional findings as described above. Oncology/pulmonology/ENT on board. Status post right thoracentesis 04/06, 1300 mL of serous fluid removed, follow-up with pleural studies. Pl fl patho w/ no malig cells. 04/07: Successful ultrasound-guided fine-needle aspiration and core needle biopsy of her left axillary lymph node. --> Follow-up with lymph node pathology. F/u w/ oncology as OP. Calcium remains elevated at more than 11 likely secondary to possible lymphoma No fever and or chills Hypercalcemia Secondary to lymphoma Will need Zometa-await nephrology input Received Zometa yesterday Calcium level is little bit down at 11.9 today Calcium has been improving Will check tomorrow-calcium has been normal Calcium level remains normal at 9.6 and uric acid is normal to 5.7-allopurinol has been stopped (2) Persistent atrial fibrillation: Rate remains controlled Plan 76 years old obese female with significant past medical history of paroxysmal atrial fibrillation, hypertension, hyperlipidemia, chronic rhinitis and history of breast cancer apparently has been complaining of generally weak and not feeling well for the last 1 week 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 She is being managed for the following: A. fib with RVR: History of such, on beta-vilma and Eliquis. Presented with 1 week history of weakness and shortness of breath on exertion. 03/27 echo: EF 45 to 50%. Mild global hypokinesis. Mild concentric LVH. A. fib with RVR. Status post IV diltiazem and IV beta-vilma. Could not tolerate IV Cardizem drip due to low blood pressure, heart rate was not responding even after digoxin. Heart rate remained elevated despite amiodarone. Status post cardioversion and reversal to sinus rhythm. Went back to A. fib with RVR with borderline low blood pressure. Cardiology on board, 03/30 cardioversion, 04/03 pacer with ventricular lead, 04/04 AV node ablation. Post ablation EKG with paced rhythm, patient with no chest pain. Rate remains controlled Continue to monitor over telemetry. c/w eliquis. Metoprolol/losartan on hold d/t soft BP---> metoprolol resumed 04/09, continue to monitor. f/u cardio as OP. Heart rate is well controlled and CHF seems to be improved Remains very weak and lethargic secondary to multiple medical problems Hemodynamically stable Be discharged to [facility] this afternoon Hyponatremia: Admitting sodium of 121, as low as 119 earlier in admission. Likely secondary to poor p.o. intake. Nephrology on board, managing sodium level, Na 132 today. Patient does not like urea and has refused it. Patient w/ somewhat improving appetite. Plasterer Rough consulted. encourage protein intake, low sodium diet. Lasix on hold due to soft BP. Na maintaining consistency above 130. Sodium level has gone up to 135 Small dose of oral Lasix will be started from tomorrow with potassium supplement Sodium level is 149-contributed by use of Lasix and fluid restriction We will hold any diuretics for the next few days Advised to have PRP done within 7 days in the facility and determine the use of Lasix Likely TIA: Post AV node ablation on 04/04/2022, patient was a stroke alert, apparently had right-sided facial droop with dysarthria and right-sided extremity weakness. 04/04 CT head was negative for any bleed. f/u CT Head 04/05 w/ no new acute findings. Received 300 Mg LA aspirin. Neurologically doing better. LDL 61. Neuro evaluated. Pt unable to have Brain MRI due to recent pacemaker placement per hospital policy per MRI department. Her other imagings as below: 04/05 CTA Head: 1. No acute infarct or intracranial hemorrhage. 2. No significant stenosis, occlusion, or aneurysm within the [place]. 04/05 CTA Neck: 1. No stenosis or dissection within the bilateral common carotid, cervical internal carotid or vertebral arteries. 2. Pathologic bilateral cervical lymphadenopathy, greater on the right. This is consistent with a neoplastic process and favors metastatic disease although lymphoma could appear similar. Potential primary neoplasm within the right palatine tonsils. These nodes would be amenable to ultrasound-guided biopsy. 3. Moderate to large right pleural effusion, partially imaged on this exam. Video swallow on her doesn't show aspiration but has esophageal dysmotility. Recommends GI consult. Diet recs would beeasy to chew, slippery, aspiration and reflux precautions. GI evaluated 04/07, no intervention for now; f/u w/ GI as OP. Remains very weak and lethargic and will continue to have PT and OT evaluation Pulmonary edema B/l Pleural effusion: Likely has acute diastolic heart failure secondary to A. fib with RVR. CXR suggestive of congestion and Rt > Lt pleural effusion. Patient on Lasix per nephrology for hyponatremia management. Patient maintaining on room air. Pulm on board: s/p Rt thoracentesis 04/06, 1300 mL of serous fluid removed. F/u w/ pleural studies. -Pleural aspirate is transudative likely from CHF Pt reports feeling better w/ breathing after thoracentesis. Has been getting Lasix Will watch for any fluid overload We will continue with current dose of diuretics as per the coping machine operator Weakness: Multifactorial complicated with poor appetite. PT/OT when able. Will likely need placement. She has been accepted to [facility] Remains very weak and lethargic to be transferred today We will continue to have physical therapy evaluation Carbuncle/furuncle of trunk:: Status post antibiotic. Other chronic medical conditions: HTN --> continue home meds as and when able. DVT prophylaxis: Sharonda resumed CODE STATUS: Full code PT/OT, CM to assist w/ DC planning. likely can dc to placement. She is physically and mentally ready to be discharged Total Time Total Time Spent Total Time Spent (In Minutes): 45 minutes Discharge Plan Discharge Items Patient Disposition: Transfer Inpatient Rehab Fac Reason For Visit: AF WITH RVR, HYPONATREMIA Discharge Diagnosis: Diffuse large B cell lymphoma ,A. fib with RVR status post ablation therapy and placement of biventricular pacemaker, cardiomyopathy with mildly reduced LV systolic function, aortic stenosis, hypertension Condition on Discharge: Fair Activity: As commented below Activity Comment: Will need to continue physical therapy and Occupational Therapy Non-emergency contact: Primary Care Provider Call non-emergency contact if: you have any medication questions and your symptoms worsen Follow-up/Referrals: Sadie Lafleur MD [Primary Care Provider] - (Please make an appointment with your primary care physician within 7 days following discharge from the facility) Diet: Carb Consistent or DM2 and Heart Healthy Fluids: 1500ml (6 cups) Addtl Attending Provider Instructions: Please take precautions to avoid falls Take your medications as advised We are holding off your Lasix until at least a basic metabolic panel is done within next few days to determine further use of Lasix and the doses Please have follow up appointments with your healthcare providers- agricultural research director/oncologist, lift truck operator and your PCP Pending Studies at Discharge: No Stand-Alone Forms: My [facility] [employer] Skilled Items Patient informed of condition?: Yes DNR: No Discharge Level of Care: Acute rehab Communicable Disease: No Discharge Prognosis: Stable Lines: None Urinary Catheter: No Medications and DC Order Prescriptions: New paroxetine HCl 10 mg Tablet 10 mg PO DAILY 30 Days Qty: 30 0RF lidocaine 5 % Adhesive Patch,Medicated 1 patch transdermal QAM 30 Days Qty: 30 0RF metoprolol succinate 25 mg Tablet Extended Release 24 Hr 25 mg PO DAILY 30 Days Qty: 30 0RF nystatin [Nystop] 100,000 unit/gram Powder 1 applic EXT BID 10 Days Qty: 50 0RF cyanocobalamin (vitamin B-12) 1,000 mcg capsule 1,000 mcg PO DAILY Qty: 30 0RF Continued apixaban 5 mg tablet 5 mg PO BID multivitamin [Multiple Vitamins] Tablet 1 tab PO QAM melatonin 3 mg Tablet 3 mg PO HS losartan 25 mg tablet 25 mg PO DAILY Discontinued metoprolol succinate 50 mg tablet extended release 24 hr 50 mg PO QAM sulfamethoxazole-trimethoprim 800-160 mg tablet 1 tab PO AMHS Discharge Orders: Discharge Order (Routine); Ordered 04/18/22 Ordered By: Jordyn Long Admission Data Admit Date/Time: 03/26/22 17:53 Attending Provider: Jrodyn Long Admit Provider: Jordyn Long Primary Care Provider: Sadie Lafleur Other Providers: Jordyn Long ; Dannie Shileds ; Víctor Hawkins ; Sulaiman Wright ; Betito Mann ; Dwayne Michelle ; Joselito Chavis Jr ; Nils Antoine ; Peg Hood ; Deysi Law ; Bay Velazquez ; Miguel Lopes ; Jem Martinez ; Lizy Noguera ; Laura Silva ; Alirio Leija ; Jerel Bagley ; Ochoa Rodriguez ; Betito Santana V. ; Ariana Blackburn ; Lefty Hollingsworth ; Zahra Huitron ; Ramez Caraballo ; Nathaniel Ames ; Allyn Chou ; Jaison Packer ; [facility] ; Han Oropeza ; [facility] ; [facility] [place] ; Misha Sepulveda ; Damion Cat ; Sylwia Mayers ; Baldomero Hobson ; Woodrow Carpenter Other Interventions: Discharge Summary Assessment (RN) Last Done: 04/18/22 14:33
== END 2022-04-18 15:43 | DRG 226 ==
LOC: ED 15:48 → 2S 17:53 → SUATTDRO 17:53 → 2S 19:10

== ENCOUNTER 2022-04-19 13:53 | Inpatient (IN) ==
--- NOTE | 2022-04-19 14:51 | Emergency Department Note ---
Impression & Plan Acute hypernatremia ADMIT ED Provider Note HPI: The patient is a 76-year-old female with history of atrial fibrillation, on anticoagulation, history of diffuse large B-cell lymphoma, presents the emergency department from [facility] over concern for right-sided facial swelling that is new over the past 36 hours. Patient presents from [facility], she was noted to be more lethargic this morning, noted to have some increasing right facial swelling over about the past 24 hours since she arrived at the facility that was concerning to the on-call hospitalist. Patient was therefore sent to the ED for further assessment. On arrival here to the ED the patient is listle ss appearing, she does have appreciable right-sided facial swelling, she does not exhibit any respiratory distress, no trismus. She is afebrile on arrival. ROS: -HEENT: Facial swelling -General: Generalized weakness/lethargy *10 point review systems was conducted and is otherwise negative unless stated above *Outpatient medications and allergy history reviewed PE: General: Listless appearing but alert to verbal stimuli, responds to questions HEENT: Normocephalic, trachea midline, there is significant right-sided facial swelling in the area of the right cheek and right submandibular area, patient is tolerating her own secretions without issue, poor dentition noted throughout Eyes: Extraocular eye movement is intact, no scleral erythema Pulmonary: Mild expiratory wheezing noted bilaterally Cardio: Regular rate and rhythm GI: Abdomen is soft, nontender : No suprapubic tenderness MSK: No evidence of trauma or malformation of the extremities, no edema Skin: No evidence of rash Neuro: Patient is listless appearing, she does respond to verbal stimuli, no focal deficits noted Psychiatric: Cooperative quality assurance monitor chassis: - An order was placed for continuous cardiac monitoring -Paced rhythm with a rate of 95 EKG: Rate: 89 Rhythm: Paced rhythm Intervals: QRS 142 ms, QTC 518, [place] indeterminate ST changes: No ST elevation Time:1400 Interventions provided in ED: -IV Unasyn, IV normal saline Medical Decision Making: Patient presented to the emergency department with some declining mentation at [facility], also noted to have some right-sided facial swelling. IV was established, lab work obtained, lab work shows multiple worsening chronic abnormalities including hypernatremia, hyperchloremia, elevated BUN, thrombocytopenia worsening today to [address] imaging of the face was ordered that shows evidence of a right-sided parotitis. No evidence of any airway obstruction. Patient has been saturating well on 2 L nasal cannula oxygen since her arrival, she was given a DuoNeb breathing treatment over concern for some wheezing on exam. Lab work otherwise does not show any significant leukocytosis, venous blood gas shows evidence of alkalosis with hypercarbia, there is metabolic compensation with a serum bicarbonate level of 35. Chest x-ray shows evidence of pulmonary edema, patient was given some IV fluids secondary to her dehydration on lab work, will monitor fluid status carefully upon admission. Case was discussed with on-call ENT, Dr. Mayers, given the patient's declining mentation I have concerned that she will tolerate lozenges well and likely will not tolerate oral antibiotics very well with Augmentin, recommendation was made by Dr. Mayers for IV Unasyn while the patient is admitted, no surgical indications on CT imaging at this time for the right-sided parotitis. I contacted the on-call hospitalist at [facility], Dr. Fenton, discussed lab work and imaging results. At this time I am in believe that the patient will require admission for further management as she is a full code, lab work has been acutely worsening over the past 24 to 48 hours, Dr. Fenton is in agreement. I discussed the patient's thrombocytopenia and recent initiation of cyclophosphamide therapy with on-call hematology/oncology, Dr. Greenberg, she recom mends avoiding IV steroids at this time and less platelet count continues to drop, thrombocytopenia may be secondary to initiation of cyclophosphamide. Patient does not have any evidence of active bleeding at this time. Hemoglobin is stable. I discussed all of the above findings with the patient's daughter, Latonya, on the phone. At this time I am recommending inpatient admission given the jone verdin's history of large B-cell lymphoma, recently initiated on cyclophosphamide therapy, also with evidence of dehydration, thrombocytopenia, and parotitis, I am concerned that the patient may not tolerate oral therapy very well for parotitis and would benefit from IV antibiotic administration. Patient's daughter is updated and aware, she is in agreement to the plan following our discussion. Case was discussed with the on-call midlevel provider for [facility] hospitalist service, patient was admitted to the [facility] hospitalist service in stable condition for further care. CC Time: 40 min - Time spent at the bedside (independent of any procedures) in management of a patient with complex medical issues, time spent with interpretation of diagnostic studies, discussion with patient and family, discussion with multiple subspecialty physicians including hematology/oncology as well as otolaryngology, discussion with the hospitalist service and arrangement of admission. Diagnosis: 1. Thrombocytopenia 2. Large B-cell lymphoma 3. Hyponatremia 4. Hyperchloremia 5. Pulmonary edema 6. Uremia 7. Bronchospasm/reason 8. 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 (01/27/15) "Abnormal left breast mammogram Status post ultrasound-guided core needle biopsy 01/25/2015 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, progesterone receptor negative, HER-2/yury negative Status post lumpectomy and sentinel lymph node biopsy 03/03/2015 Pathologic stage [id number] Status post reexcision 03/23/2015 due to positive margin no residual tumor Status post completion of radiation therapy 06/10/2015 received 6120 cGy " On 07/09/15 10:05 Siria Dunham wrote "Abnormal left breast mammogram Status post ultrasound-guided core needle biopsy 01/25/2015 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, progesterone receptor negative, HER-2/yury negative Status post lumpectomy and sentinel lymph node biopsy 03/03/2015 Pathologic stage [id number] Status post reexcision 03/23/2015 due to positive margin no residual tumor " On 07/09/15 10:05 Siria Dunham wrote "Abnormal left breast mammogram Status post ultrasound-guided core needle biopsy 01/25/2015 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, progesterone receptor negative, HER-2/yury negative Status post lumpectomy and sentinel lymph node biopsy 03/03/2015 Pathologic stage [id number] Status post reexcision 03/23/2015 due to positive margin no residual tumor " On 04/07/15 12:14 Siria Dunham wrote "Abnormal left breast mammogram Status post ultrasound-guided core needle biopsy 01/25/2015 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, progesterone receptor negative, HER-2/yury negative Status post lumpectomy and sentinel lymph node biopsy 03/03/2015 Pathologic stage [id number] Status post reexcision 03/23/2015 due to positive margin no residual tumor" On 04/07/15 12:12 Siria M Dunham wrote "Abnormal left breast mammogram Status post ultrasound-guided core needle biopsy 01/25/2015 Invasive ductal carcinoma Jana receptor negative, progesterone receptor negative, HER-2/yury negative Status post lumpectomy and sentinel lymph node biopsy 03/03/2015 Pathologic stage [id number] Status post reexcision 03/23/2015 due to positive margin no residual tumor" Chronic hyponatremia HTN (hypertension) Morbid obesity with BMI of 40.0-44.9, adult On anticoagulant therapy eliquis daily Surgical History History of breast surgery 03/2015 reexcision of lump of left breast History of colonoscopy History of lumpectomy of left breast 02/2015 with sentinel lymph node biopsy History of needle biopsy 01/2018 left breast--malignant History of tooth extraction History of total hysterectomy with bilateral salpingo-oophorectomy (BSO) History of wisdom tooth extraction Family History Mother Family hx of colon cancer Other No family history of adverse response to anesthesia No pertinent family history Social History Smoking Status: Unknown if ever smoked Second Hand Exposure: Yes ( smoked); Hx Alcohol Use: No Hx Substance Use: No Preferred Language: Bulgarian Communication Ability: Effective Plate Maker Z[employer] Required: No Beliefs That Will Affect Care: Anabaptism Current Living Situation: Spouse Feels Safe at Home: Yes Assistive Devices: None Allergies Allergies Allergy/AdvReac Type Severity Reaction Status Date / Time No Known Allergies Allergy Verified 04/19/22 17:29 Home Meds Home Medications Medication Instructions Recorded Confirmed multivitamin (Multiple Vitamins 1 tab PO QAM 10/15/18 04/19/22 tablet) apixaban 5 mg tablet 5 mg PO BID 01/29/19 04/19/22 losartan 25 mg tablet 25 mg PO DAILY 03/26/22 04/19/22 melatonin 3 mg tablet 3 mg PO HS 03/26/22 04/19/22 Previous Rx's Medication Instructions Recorded cyanocobalamin (vitamin B-12) 1,000 mcg PO DAILY #30 caps 04/18/22 1,000 mcg capsule lidocaine 5 % topical patch 1 patch transdermal QAM 30 days 04/18/22 #30 ea metoprolol succinate 25 mg 25 mg PO DAILY 30 days #30 tabs 04/18/22 tablet,extended release 24 hr nystatin 100,000 unit/gram topical 1 applic EXT BID 10 days #50 grams 04/18/22 powder (Nystop) paroxetine HCl 10 mg tablet 10 mg PO DAILY 30 days #30 tabs 04/18/22 Results & Data (ED) Vital Signs Vital Signs - 24 hr 04/19/22 14:13 04/19/22 14:13 04/19/22 14:48 Temperature 36.5 C Temperature Source Axillary Pulse Rate 89 89 Pulse Rate [Apical] Respiratory Rate 18 21 Respiratory Effort / Characteristics Non-Labored Spontaneous Respiratory Depth Normal Respiratory Pattern Regular Blood Pressure 105/70 Blood Pressure Mean 81 Blood Pressure Position Lying Pulse Oximetry 95 92 90 Oxygen Delivery Method Nasal Cannula Nasal Cannula Nasal Cannula Oxygen Flow Rate 2 2 2 Sepsis Recent Fever Within 48 Hours No Sepsis New/Unexplained Change in Mental Status Yes Sepsis Action Taken by Nursing No Action Required 04/19/22 14:48 04/19/22 14:00 04/19/22 15:43 Temperature Temperature Source Pulse Rate Pulse Rate [Apical] 89 Respiratory Rate 21 21 21 Respiratory Effort / Characteristics Respiratory Depth Respiratory Pattern Blood Pressure Blood Pressure Mean Blood Pressure Position Pulse Oximetry 90 90 98 Oxygen Delivery Method Nasal Cannula Nasal Cannula Oxygen Flow Rate 2 2 Sepsis Recent Fever Within 48 Hours Sepsis New/Unexplained Change in Mental Status Sepsis Action Taken by Nursing 04/19/22 17:04 04/19/22 18:00 Temperature Temperature Source Pulse Rate Pulse Rate [Apical] 80 94 H Respiratory Rate 21 21 Respiratory Effort / Characteristics Respiratory Depth Respiratory Pattern Blood Pressure Blood Pressure Mean Blood Pressure Position Pulse Oximetry 92 92 Oxygen Delivery Method Nasal Cannula Nasal Cannula Oxygen Flow Rate 3 3 Sepsis Recent Fever Within 48 Hours Sepsis New/Unexplained Change in Mental Status Sepsis Action Taken by Nursing Laboratory Data Result diagrams: 04/19/22 15:19 04/19/22 15:19 Lab Results 04/19/22 04/19/22 04/19/22 Range/Units 14:26 15:19 15:19 WBC 7.55 (4.8-10.8) K/ul RBC 4.04 (3.93-5.22) M/uL Hgb 12.4 (12.0-16.0) g/dl Hct 40.3 (34.1-44.9) % MCV 99.8 (80.0-100.0) fL MCH 30.7 (25.0-34.0) pg MCHC 30.8 L (32.0-36.0) g/dL RDW Std Deviation 74.4 H (36.4-46.3) fL RDW Coeff of Carlita 21.1 H (11.5-14.5) % Plt Count 57 L (130-400) K/uL MPV 12.4 H (9.4-12.3) fL Absolute Nucleated RBC 0.03 H (0-0) K/uL Nucleated RBC % (auto) 0.4 % Neutrophils % (Manual) 98 % Lymphocytes % (Manual) 2 % Neutrophils # (Manual) 7.40 H (1.4-6.5) K/uL Lymphocytes # (Manual) 0.15 L (1.2-3.4) K/uL Dohle Bodies 1+ PT 12.7 H (9.0-12.0) Seconds INR 1.2 H (0.9-1.1) APTT 31.5 H (21.0-31.0) Seconds PTT Ratio 1.1 VBG pH (7.36-7.41) VBG pCO2 (38-50) mmHg VBG pO2 mmHg VBG HCO3 mmol/L VBG O2 Saturation % VBG Base Excess mEq/L Sodium (136-145) mmol/L Potassium (3.5-5.1) mmol/L Chloride (98-107) mmol/L Carbon Dioxide (21-32) mmol/L Anion Gap (3-11) BUN (6-23) mg/dl Creatinine (0.6-1.2) mg/dl Est Cr Clr Drug Dosing Est GFR ( Amer) ml/min Est GFR (Non-Af Amer) ml/min BUN/Creatinine Ratio (10-20) Glucose (70-99(Fasting)) mg/dl POC Glucose 271 H (70-99) mg/dl Lactate (0.4-2.0) mmol/L Calcium (8.5-10.1) mg/dl Magnesium (1.7-2.4) mg/dl Total Bilirubin (0.2-1.0) mg/dl Direct Bilirubin (0-0.2) mg/dl AST (13-39) U/L ALT (7-52) U/L Alkaline Phosphatase (34-104) U/L Troponin I High Sens (0-14) pg/ml Total Protein (6.0-8.3) gm/dl Albumin (3.4-5.0) gm/dl Globulin (2.5-4.0) gm/dl Albumin/Globulin Ratio (0.9-2) Procalcitonin (0-0.5) ng/ml TSH (0.300-4.500) uIu/ml 04/19/22 04/19/22 04/19/22 Range/Units 15:19 15:19 17:00 WBC (4.8-10.8) K/ul RBC (3.93-5.22) M/uL Hgb (12.0-16.0) g/dl Hct (34.1-44.9) % MCV (80.0-100.0) fL MCH (25.0-34.0) pg MCHC (32.0-36.0) g/dL RDW Std Deviation (36.4-46.3) fL RDW Coeff of Carlita (11.5-14.5) % Plt Count (130-400) K/uL MPV (9.4-12.3) fL Absolute Nucleated RBC (0-0) K/uL Nucleated RBC % (auto) % Neutrophils % (Manual) % Lymphocytes % (Manual) % Neutrophils # (Manual) (1.4-6.5) K/uL Lymphocytes # (Manual) (1.2-3.4) K/uL Dohle Bodies PT (9.0-12.0) Seconds INR (0.9-1.1) APTT (21.0-31.0) Seconds PTT Ratio VBG pH (7.36-7.41) VBG pCO2 (38-50) mmHg VBG pO2 mmHg VBG HCO3 mmol/L VBG O2 Saturation % VBG Base Excess mEq/L Sodium 153 H (136-145) mmol/L Potassium 4.1 (3.5-5.1) mmol/L Chloride 113 H (98-107) mmol/L Carbon Dioxide 35 H (21-32) mmol/L Anion Gap 5 (3-11) BUN 57 H (6-23) mg/dl Creatinine 0.57 L (0.6-1.2) mg/dl Est Cr Clr Drug Dosing Not Reportable Est GFR ( Amer) 104.4 ml/min Est GFR (Non-Af Amer) 90.0 ml/min BUN/Creatinine Ratio 100.0 H (10-20) Glucose 279 H (70-99(Fasting)) mg/dl POC Glucose (70-99) mg/dl Lactate 2.1 H* (0.4-2.0) mmol/L Calcium 9.4 (8.5-10.1) mg/dl Magnesium 2.6 H (1.7-2.4) mg/dl Total Bilirubin 5.4 H (0.2-1.0) mg/dl Direct Bilirubin 2.7 H (0-0.2) mg/dl AST 31 (13-39) U/L ALT 26 (7-52) U/L Alkaline Phosphatase 65 (34-104) U/L Troponin I High Sens 111.1 H* (0-14) pg/ml Total Protein 5.2 L (6.0-8.3) gm/dl Albumin 2.6 L (3.4-5.0) gm/dl Globulin 2.6 (2.5-4.0) gm/dl Albumin/Globulin Ratio 1.0 (0.9-2) Procalcitonin (0-0.5) ng/ml TSH 1.501 (0.300-4.500) uIu/ml 04/19/22 04/19/22 Range/Units 17:00 17:00 WBC (4.8-10.8) K/ul RBC (3.93-5.22) M/uL Hgb (12.0-16.0) g/dl Hct (34.1-44.9) % MCV (80.0-100.0) fL MCH (25.0-34.0) pg MCHC (32.0-36.0) g/dL RDW Std Deviation (36.4-46.3) fL RDW Coeff of Carlita (11.5-14.5) % Plt Count (130-400) K/uL MPV (9.4-12.3) fL Absolute Nucleated RBC (0-0) K/uL Nucleated RBC % (auto) % Neutrophils % (Manual) % Lymphocytes % (Manual) % Neutrophils # (Manual) (1.4-6.5) K/uL Lymphocytes # (Manual) (1.2-3.4) K/uL Dohle Bodies PT (9.0-12.0) Seconds INR (0.9-1.1) APTT (21.0-31.0) Seconds PTT Ratio VBG pH 7.43 H (7.36-7.41) VBG pCO2 62 H (38-50) mmHg VBG pO2 31 mmHg VBG HCO3 41 mmol/L VBG O2 Saturation < 60.0 % VBG Base Excess 13.9 mEq/L Sodium (136-145) mmol/L Potassium (3.5-5.1) mmol/L Chloride (98-107) mmol/L Carbon Dioxide (21-32) mmol/L Anion Gap (3-11) BUN (6-23) mg/dl Creatinine (0.6-1.2) mg/dl Est Cr Clr Drug Dosing Est GFR ( Amer) ml/min Est GFR (Non-Af Amer) ml/min BUN/Creatinine Ratio (10-20) Glucose (70-99(Fasting)) mg/dl POC Glucose (70-99) mg/dl Lactate (0.4-2.0) mmol/L Calcium (8.5-10.1) mg/dl Magnesium (1.7-2.4) mg/dl Total Bilirubin (0.2-1.0) mg/dl Direct Bilirubin (0-0.2) mg/dl AST (13-39) U/L ALT (7-52) U/L Alkaline Phosphatase (34-104) U/L Troponin I High Sens (0-14) pg/ml Total Protein (6.0-8.3) gm/dl Albumin (3.4-5.0) gm/dl Globulin (2.5-4.0) gm/dl Albumin/Globulin Ratio (0.9-2) Procalcitonin 0.18 (0-0.5) ng/ml TSH (0.300-4.500) uIu/ml Administered Medications Discontinued Medications Albuterol (Albut/Ipratrop 3mg/0.5mg Neb 3 Ml Vial) 3 ml NEB NOW STA; Protocol Stop: 04/19/22 17:48 Last Admin: 04/19/22 17:52 Dose: 3 ml Documented By: NAFISA Sodium Chloride (Nss 1000ml) 500 mls @ 999 mls/hr IV .Q31M LINDA Stop: 04/19/22 15:30 Last Infusion: 04/19/22 17:17 Dose: 0 mls/hr Documented By: Admin: 04/19/22 15:50 Dose: 999 mls/hr Documented By: NAFISA Ampicillin Sodium/Sulbactam Sodium 3,000 mg/ Sodium Chloride 108 mls @ 200 mls/hr IV NOW STA; Protocol Stop: 04/19/22 18:04 Last Admin: 04/19/22 18:20 Dose: 200 mls/hr Documented By: NAFISA Ioversol (Optiray 350 100ml) 85 ml IV ONCE ONE Stop: 04/19/22 16:29 Last Admin: 04/19/22 16:28 Dose: 85 ml Documented By: GIDEON Imaging Data Radiologist's Impression: Chest X-Ray 04/19/22 14:41 XR chest 1V portable HISTORY: Altered mental status. COMPARISON: Chest 04/11/2022. FINDINGS: No pneumothorax. Perihilar interstitial/vascular thickening again noted consistent with mild pulmonary edema. Small to moderate bilateral pleural effusions and bibasilar densities persist. The heart remains enlarged. There is a left-sided pacemaker again noted. IMPRESSION: No significant change in the pulmonary edema, bilateral pleural effusions, and bibasilar densities. ACT 112: Negative or not required by law. Electronically signed by: German Lemon M.D. 04/19/2022 4:[address] 04/19/22 14:50 CT head/brain wo con CLINICAL HISTORY: confusion Technique: Contiguous axial CT images of the head were acquired from the base of the skull to the vertex without intravenous contrast administration. Images were viewed in brain, subdural and bone windows. Automated dose lowering techniques and/or adjustment according to patient size were utilized for this exam. Comparison: Comparison is made to CT head 04/08/2022 Findings: Areas of decreased attenuation are present in the periventricular and subcortical white matter bilaterally consistent with small vessel ischemic disease. Generalized cerebral atrophy with commensurate enlargement of the ventricles, sulci, and cisterns is also present. There is no acute intracranial hemorrhage or evidence of acute territorial infarction. No shift of the midline structures, mass effect, or extra-axial abnormalities are shown. Atherosclerotic calcifications are present in the intracranial segments of the internal carotid arteries. Left sphenoid and ethmoid sinus opacification is noted. The orbits appear normal. There are no acute fractures of the calvaria or scalp swelling. Impression: No acute intracranial hemorrhage, no evidence of acute territorial infarction or other acute intracranial disease process. ACT 112: Negative or not required by law. Electronically signed by: José Neil M.D. 04/19/2022 4:[address] 04/19/22 14:53 CT soft tissue neck w con HISTORY: R facial swelling TECHNIQUE: Multiaxial CT images of the neck were performed following the intravenous administration of contrast. Sagittal and coronal reformations were performed at the workstation by the radiologist. COMPARISON STUDY: Neck CTA 04/05/2022. FINDINGS: There is again noted right-sided lymphadenopathy. This has improved in the interval. Dominant lymph node currently measures 2.0 x 1.0 cm this producing measured 2.4 x 2.0 cm. Decrease in size in the lymphadenopathy/soft tissue mass adjacent to the angle of the right hemimandible. This currently measures 1.9 cm, previously measuring 3.1 cm. Moderate right pleural effusion is again noted. The mastoid air cells are clear. Near complete opacification the left posterior ethmoid air cells and left sphenoid sinus. This is new from the prior study. Right mandibular condyle deformity, unchanged. No suspicious lytic or blastic osseous lesions. Normal thyroid gland. Partially visualized left- sided pacemaker. Mild mucosal thickening throughout the majority of the hypopharynx most pronounced at the right palatine tonsil. This is similar to the prior study. The epiglottis is normal in thickness. No prevertebral fluid collections identified. Enlargement and increased density with adjacent fat stranding within the right parotid gland. This is consistent with a right-sided parotitis. This is new from the prior study. There is subcutaneous edema within the right lateral and anterior neck. Small foci of gas within the neck appear to correspond to intravenous contrast and may be due to prior line insertion. 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 Moderate calcified plaque within the bi lateral carotid bifurcations without significant stenosis. No loculated fluid collections to suggest an abscess. IMPRESSION: 1. Interval development of a right-sided parotitis. 2. The right-sided lymphadenopathy has slightly improved. 3. Mucosal thickening throughout the hypopharynx most pronounced at the right palatine tonsil persists. No significant airway compromise at this time. 4. No change in the moderate right pleural effusion. ACT 112: Negative or not required by law. Electronically signed by: German Lemon M.D. 04/19/2022 4:43 PM Discharge Plan Visit Data Chief Complaint: Altered Mental Status Stated Complaint: R CHEEK SWELLING, HYPOTENSION ED Provider: Partha Appiah Discharge Problem: Acute hypernatremia Forms Stand Alone Forms: [facility] [employer] Prescriptions Prescriptions: No Action apixaban 5 mg tablet 5 mg PO BID multivitamin [Multiple Vitamins] Tablet 1 tab PO QAM melatonin 3 mg Tablet 3 mg PO HS losartan 25 mg tablet 25 mg PO DAILY paroxetine HCl 10 mg Tablet 10 mg PO DAILY 30 Days Qty: 30 0RF lidocaine 5 % Adhesive Patch,Medicated 1 patch transdermal QAM 30 Days Qty: 30 0RF metoprolol succinate 25 mg Tablet Extended Release 24 Hr 25 mg PO DAILY 30 Days Qty: 30 0RF nystatin [Nystop] 100,000 unit/gram Powder 1 applic EXT BID 10 Days Qty: 50 0RF cyanocobalamin (vitamin B-12) 1,000 mcg capsule 1,000 mcg PO DAILY Qty: 30 0RF Referrals Referrals: Sadie Lafleur MD [Primary Care Provider] -
[2022-04-19] MEDS ORDERED: SODIUM CHLORIDE 0.9% 1000ML 500 ML IV SCH (15:00)
[2022-04-19 15:45] LABS: Hematocrit (blood only) 40.3 % (34.1-44.9); Hemoglobin 12.4 g/dl (12.0-16.0); Mean Corpuscular Hemoglobin 30.7 pg (25.0-34.0); Mean Corpuscular Hgb Conc 30.8 g/dL (32.0-36.0); Mean Corpuscular Volume 99.8 fL (80.0-100.0); Mean Platelet Volume 12.4 fL (9.4-12.3); Nucleated RBC # (auto) 0.03 K/uL (0-0); Nucleated RBC % (auto) 0.4 %; Platelet Count 57 K/uL (130-400); RDW Coefficient of Variation 21.1 % (11.5-14.5); RDW Standard Deviation 74.4 fL (36.4-46.3); Red Blood Count 4.04 M/uL (3.93-5.22); White Blood Count 7.55 K/ul (4.8-10.8)
[2022-04-19 15:51] LABS: INR 1.2 (0.9-1.1); Partial Thromboplastin Ratio 1.1; Partial Thromboplastin Time 31.5 Seconds (21.0-31.0); Prothrombin Time 12.7 Seconds (9.0-12.0)
[2022-04-19 16:10] LABS: Dohle Bodies 1+
[2022-04-19 16:17] LABS: Lymphocytes # (manual) 0.15 K/uL (1.2-3.4); Lymphocytes % (manual) 2 %; Neutrophils % (manual) 98 %
--- NOTE | 2022-04-19 16:20 | XRay Report ---
XR chest 1V portable HISTORY: Altered mental status. COMPARISON: Chest 04/11/2022. FINDINGS: No pneumothorax. Perihilar interstitial/vascular thickening again noted consistent with mil d pulmonary edema. Small to moderate bilateral pleural effusions and bibasilar densities persist. The heart remains enlarged. There is a left-sided pacemaker again noted. IMPRESSION: No significant change in the pulmonary edema, bilateral pleural effusions, and bibasilar densities. ACT 112: Negative or not required by law. Electronically signed by: German Lemon M.D. 04/19/2022 4:19 PM
[2022-04-19 16:21] LABS: Alanine Aminotransferase 26 U/L (7-52); Albumin Level 2.6 gm/dl (3.4-5.0); Alkaline Phosphatase 65 U/L (34-104); Anion Gap 5 (3-11); Aspartate Aminotransferase 31 U/L (13-39); Bilirubin Direct 2.7 mg/dl (0-0.2); Bilirubin,Total 5.4 mg/dl (0.2-1.0); Blood Urea Nitrogen 57 mg/dl (6-23); Calcium 9.4 mg/dl (8.5-10.1); Carbon Dioxide 35 mmol/L (21-32); Chloride 113 mmol/L (98-107); Est GFR (African American) 104.4 ml/min; Globulin 2.6 gm/dl (2.5-4.0); Glucose 279 mg/dl (70-99(Fasting)); Magnesium 2.6 mg/dl (1.7-2.4); Potassium 4.1 mmol/L (3.5-5.1); Sodium 153 mmol/L (136-145); Total Protein 5.2 gm/dl (6.0-8.3)
[2022-04-19 16:23] LABS: Troponin I High Sensitivity 111.1 pg/ml (0-14)
[2022-04-19] MEDS ORDERED: OPTIRAY 350 100ml IV ONE (16:28)
--- NOTE | 2022-04-19 16:40 | CT Scan Report ---
CT head/brain wo con CLINICAL HISTORY: confusion Technique: Contiguous axial CT images of the head were acquired from the base of the skull to the jelena jagjit without intravenous contrast administration. Images were viewed in brain, subdural [facility] . Automated dose lowering techniques and/or adjustment according to patient size were utilized for this exam. Comparison: Comparison is made to CT head 04/08/2022 Findings: Areas of decreased attenuation are present in the periventricular and subcortical white matter bilate rally consistent with small vessel ischemic disease. Generalized cerebral atrophy with commensurate e nlargement of the ventricles, sulci, and cisterns is also present. There is no acute intracranial hem orrhage or evidence of acute territorial infarction. No shift of the midline structures, mass effect, or extra-axial abnormalities are shown. Atherosclerotic calcifications are present in the intracran ial segments of the internal carotid arteries. Left sphenoid and ethmoid sinus opacification is noted. The orbits appear normal. There are no acute fractures of the calvaria or scalp swelling. Impression: No acute intracranial hemorrhage, no evidence of acute territorial infarction or other acute intracra nial disease process. ACT 112: Negative or not required by law. Electronically signed by: José Neil M.D. 04/19/2022 4:38 PM
--- NOTE | 2022-04-19 16:44 | CT Scan Report ---
CT soft tissue neck w con HISTORY: R facial swelling TECHNIQUE: Multiaxial CT images of the neck were performed following the intravenous administration o f contrast. Sagittal and coronal reformations were performed at the workstation by the radiologist. COMPARISON STUDY: Neck CTA 04/05/2022. FINDINGS: There is again noted right-sided lymphadenopathy. This has improved in the interval. Domina nt lymph node currently measures 2.0 x 1.0 cm this producing measured 2.4 x 2.0 cm. Decrease in size in the lymphadenopathy/soft tissue mass adjacent to the angle of the right hemimandible. This current ly measures 1.9 cm, previously measuring 3.1 cm. Moderate right pleural effusion is again noted. The mastoid air cells are clear. Near complete opacification the left posterior ethmoid air cells and lef t sphenoid sinus. This is new from the prior study. Right mandibular condyle deformity, unchanged. No suspicious lytic or blastic osseous lesions. Normal thyroid gland. Partially visualized left-sided p acemaker. Mild mucosal thickening throughout the majority of the hypopharynx most pronounced at the r ight palatine tonsil. This is similar to the prior study. The epiglottis is normal in thickness. No p revertebral fluid collections identified. Enlargement and increased density with adjacent fat strandi ng within the right parotid gland. This is consistent with a right-sided parotitis. This is new from the prior study. There is subcutaneous edema within the right lateral and anterior neck. Small foci o f gas within the neck appear to correspond to intravenous contrast and may be due to prior line inser tion. 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 Moderate calcified plaque within the bilateral carotid bifurcations without significant stenosis. No loculated fluid collections to suggest an abscess. IMPRESSION: 1. Interval development of a right-sided parotitis. 2. The right-sided lymphadenopathy has slightly improved. 3. Mucosal thickening throughout the hypopharynx most pronounced at the right palatine tonsil persist s. No significant airway compromise at this time. 4. No change in the moderate right pleural effusion. ACT 112: Negative or not required by law. Electronically signed by: German Lemon M.D. 04/19/2022 4:43 PM
--- NOTE | 2022-04-19 16:59 | Electrocardiogram Report ---
Test Reason : Blood Pressure : / mmHG Vent. Rate : 089 BPM Atrial Rate : 088 BPM P-R Int : 000 ms QRS Dur : 142 ms QT Int : 426 ms P-R-T Axes : 020 137 059 degrees QTc Int : 518 ms Ventricular-paced rhythm Underlying atrial fibrillation Abnormal ECG When compared with ECG of 04-APR-2022 16:09, No significant change was found Confirmed by Dwayne Michelle ([id number]) on 04/19/2022 4:59:02 PM Referred By: Confirmed By:Dwayne Michelle
[2022-04-19 17:17] LABS: Base Excess VBG 13.9 mEq/L; HCO3 VBG 41 mmol/L; Oxygen Saturation VBG < 60.0 %; PCO2 VBG 62 mmHg (38-50); PO2 VBG 31 mmHg; pH VBG 7.43 (7.36-7.41)
[2022-04-19] MEDS ORDERED: AMPICILLIN/SULBACTAM SOD 3,000 MG in 0.9 % SODIUM CHLORIDE 100 ML IV STA (17:32)
[2022-04-19] MEDS ORDERED: ALBUT/IPRATROP 3MG/0.5MG NEB 3 ML VIAL NEB STA (17:47)
[2022-04-19] MEDS ORDERED: NovoLIN-R INSULIN PER UNIT CHARGE IV STA (18:11)
[2022-04-19] MEDS ORDERED: DEXTROSE 5% 1,000 ML IV SCH (18:15)
--- NOTE | 2022-04-19 18:29 | History & Physical Report ---
Date of Service April 19, 2022 Assessment & Plan (1) Acute hypernatremia: Plan: Patient is 76-year-old female with PMH PAF, HTN, dyslipidemia, h/o breast cancer, recent diagnosis of B-cell lymphoma presented to ER from [facility] right sided facial swelling, lethargy x 1 day. Recent admission with hyponatremia that was thought secondary to hypervolemic hyponatremia and initially treated with 1.5 L fluid restriction, Lasix 20 mg twice daily, however Lasix was later discontinued secondary to hypotension Patient with poor oral intake Today Sodium: 153 Start dextrose at 150 mL/hour x 1L BMP every 6 hours (2) Altered mental status: Plan: Likely metabolic encephalopathy secondary to hypernatremia CT head:No acute intracranial hemorrhage, no acute infarction, no acute intracranial abnormality Treatment for hypernatremia as above Monitor Currently NPO (3) Parotitis: Plan: Reported right-sided facial swelling x1 day CT soft tissue neck: Interval development of a right-sided parotitis. The right- sided lymphadenopathy has slightly improved. Mucosal thickening throughout the hypopharynx most pronounced at the right palatine tonsil persists. No significant airway compromise at this time. Blood cultures pending In ER given Unasyn ER physician spoke to ENT, Dr. Mayers who had recommended Unasyn Facial swelling/mass likely related to lymphoma Will continue Unasyn. ENT consult (4) Diffuse large B-cell lymphoma: (5) Thrombocytopenia: Plan: Recent diagnosis B-cell lymphoma 04/06/22 CT Chest: CT chest: Supraclavicular, left axillary and mediastinal lymphadenopathy, representing either metastatic disease or lymphoma. Recent left axillary lymph node biopsy. 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 Oncology concerned she has rapidly progressive disease. Recent treatment with prednisone and dose of IV cyclophosphamide. Was also given Neupogen. Developed hypercalcemia and was given Zometa. Today Platelets: 57 Possible marrow involvement ER physician spoke to oncology, Dr. Davila who did not recommend any further steroids at this time Uric acid, phosphate pending Oncology consult Palliative consult for discussion of goals of care Speech consult as pt has reported pain with swallowing Will need further evaluation tomorrow for recheck of possible oral thrush (6) Hyperglycemia: Plan: Glucose: 279 Given 1 insulin R 5 units IV as receiving IV dextrose for hypernatremia Recent steroid use NovoLog sliding scale per protocol A1c in a.m. (7) Paroxysmal atrial fibrillation: Plan: Anticoagulated on Eliquis Recent admission with A. fib RVR 03/27/2022 echo: EF: 45-50%, mild global hypokinesis, mild concentric LVH, mildly dilated right ventricle, severe left atrial dilation, mild , mild MR, small pericardial effusion without evidence of tamponade A. fib RVR continued despite treatment with Cardizem drip, IV beta-blockers, amiodarone. Had cardioversion in 03/30/2022. Had biventricular pacemaker implanted on 04/03/22. Had AV william ablation on 04/04/22 Current paced rhythm on EKG Hold metoprolol succinate and convert to metoprolol tartrate IV while NPO Hold Eliquis with thrombocytopenia (8) Pleural effusion: (9) Hypoxia: Plan: Recent history bilateral pleural effusions. 04/06/2022: Thoracentesis, total 1.3L removed. Cytology showed lymphocytes and reactive mesothelial cells and red blood cells, no malignant cells seen Today CT soft tissue neck: No change in the moderate right pleural effusion 90% on 2L oxygen via NC. Negative rapid Covid-19 test Supplemental oxygen as needed Monitor (10) Elevated troponin: Plan: High-sensitivity troponin: 111. Was 136 on 04/05/2022 Trend troponin EKG paced rhythm (11) Elevated lactic acid level: Plan: Lactate: 2.1 Repeat lactate (12) Palpable abdominal mass: Plan: Palpable mass to RUQ noted on physical exam today CT abd/pelvis pending to further assess. Concern for rapid progressing lymphoma 04/06/22 CT Abd/pelvis: Without mention of abdominal mass (13) Cardiomyopathy: Plan: 03/27/2022 echo: EF: 45-50%, mild global hypokinesis, mild concentric LVH, mildly dilated right ventricle, severe left atrial dilation, mild , mild MR, small pericardial effusion without evidence of tamponade Will hold on lasix at this time Monitor I's & O's (14) HTN (hypertension): Plan: SBP in ER 105 Recent hospitalization with noted low BPs Hold losartan, monitor BP (15) Breast cancer: Plan: History of left breast cancer s/p lumpectomy in 2014 Patient's daughter would like called with updates. Latonya Robbins [phone] DVT Prophylaxis SCDs Full Code as per discussion with pt's daughter Follows with Dr Sadie Lafleur for routine care Pt was seen and care coordinated with Dr Yeh. See addendum. History of Present Illness Primary Care Provider: Sadie Lafleur MD Patient is 76-year-old female with PMH PAF, HTN, dyslipidemia, h/o breast cancer, recent diagnosis of B-cell lymphoma presented to ER from [facility] right sided facial swelling x 1 day. Unable to obtain history from patient at this time secondary to mental status. Prior inpatient and outpatient chart review and patient with recent complicated hospital course during [facility] admission on 03/26/2022-04/18/2022 for SOB, weakness, LE edema. Was found to be in A. fib RVR, hyponatremia, pulmonary edema. Had persistent atrial fibrillation with RVR during admission. 03/27/2022 echo: EF: 45-50%, mild global hypokinesis, mild concentric LVH, mildly dilated right ventricle, severe left atrial dilation, mild , mild MR, small pericardial effusion without evidence of tamponade Initially treated with Cardizem drip then amiodarone. She had cardioversion in 03/30/2022. Had biventricular pacemaker implanted on 04/03/22 and had AV william ablation on 04/04/22. After the ablation patient had a right- sided facial droop, dysarthria, RUE weakness. Initial CT head without acute intracranial abnormality. MRI brain was unable to be completed secondary to recent pacemaker placement. Neurology thought patient likely had TIA. CTA head and neck showed bilateral pathologic cervical lymphadenopathy greater on the right, consistent with neoplastic process or lymphoma, potential primary neoplasm right palatine tonsils. Speech therapy evaluation, video swallow study did not show aspiration, and showed esophageal dysmotility. Recommended slippery diet, soft foods and aspiration precautions. Hyponatremia was thought secondary to hypervolemic hyponatremia and was on 1.5 L fluid restriction, Lasix [address] chest: Supraclavicular, left axillary and mediastinal lymphadenopathy, representing either metastatic disease or lymphoma. Bilateral pleural effusions. 04/06/2022: Thoracentesis, total 1.3L removed. Cytology showed lymphocytes and reactive mesothelial cells and red blood cells, no malignant cells seen. Oncology consulted. Patient had left axillary lymph node biopsy. 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 Noted thrombocytopenia that suggested marrow involvement. Oncology concerned she has rapidly progressive disease. Was treated with prednisone and dose of IV cyclophosphamide. Was also given Neupogen. Developed hypercalcemia and was given Zometa. Difficult to manage secondary to hypotension, edema, developed hypernatremia. Patient discharged 04/18/2022 to [facility] rehab for the hope of improving performance status in preparation for more comprehensive chemo. Since being at [facility] patient with increased lethargy, complaints of pain with swallowing, shortness of breath with trying to stand. Reports of altered mental status. It is reported patient had decreased appetite and poor oral intake. It is reported patient had episode of epistaxis at [facility]. Labs from this morning with sodium of 153, glucose 298, calcium 9.6, BUN 60, creatinine 0.6, WBC 11, Hgb 12, platelets unable to be determined secondary to clumping. Patient was referred to ER for further evaluation. Allergies Allergy/AdvReac Type Severity Reaction Status Date / Time No Known Allergies Allergy Verified 04/19/22 17:29 Home Medications Medication Instructions Recorded Confirmed Type multivitamin (Multiple Vitamins 1 tab PO QAM 10/15/18 04/19/22 History tablet) apixaban 5 mg tablet 5 mg PO BID 01/29/19 04/19/22 History losartan 25 mg tablet 25 mg PO DAILY 03/26/22 04/19/22 History melatonin 3 mg tablet 3 mg PO HS 03/26/22 04/19/22 History cyanocobalamin (vitamin B-12) 1,000 mcg PO DAILY #30 caps 04/18/22 04/19/22 Rx 1,000 mcg capsule lidocaine 5 % topical patch 1 patch transdermal QAM 30 days 04/18/22 04/19/22 Rx #30 ea metoprolol succinate 25 mg 25 mg PO DAILY 30 days #30 tabs 04/18/22 04/19/22 Rx tablet,extended release 24 hr nystatin 100,000 unit/gram topical 1 applic EXT BID 10 days #50 grams 04/18/22 04/19/22 Rx powder (Nystop) paroxetine HCl 10 mg tablet 10 mg PO DAILY 30 days #30 tabs 04/18/22 04/19/22 Rx docusate sodium 100 mg capsule 100 mg PO BID 04/19/22 04/19/22 History Past Med/Surg History Medical History (Updated 04/19/22 @ 20:40 by Radha Jiang PA-C) Atrial fibrillation on eliquis follows with Dannie Linkr Breast cancer 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 (01/27/15) "Abnormal left breast mammogram Status post ultrasound-guided core needle biopsy 01/25/2015 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, progesterone receptor negative, HER-2/yury negative Status post lumpectomy and sentinel lymph node biopsy 03/03/2015 Pathologic stage [id number] Status post reexcision 03/23/2015 due to positive margin no residual tumor Status post completion of radiation therapy 06/10/2015 received 6120 cGy " On 07/09/15 10:05 Siria Dunham wrote "Abnormal left breast mammogram Status post ultrasound-guided core needle biopsy 01/25/2015 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, progesterone receptor negative, HER-2/yury negative Status post lumpectomy and sentinel lymph node biopsy 03/03/2015 Pathologic stage [id number] Status post reexcision 03/23/2015 due to positive margin no residual tumor " On 07/09/15 10:05 Siria Dunham wrote "Abnormal left breast mammogram Status post ultrasound-guided core needle biopsy 01/25/2015 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, progesterone receptor negative, HER-2/yury negative Status post lumpectomy and sentinel lymph node biopsy 03/03/2015 Pathologic stage [id number] Status post reexcision 03/23/2015 due to positive margin no residual tumor " On 04/07/15 12:14 Siria Dunham wrote "Abnormal left breast mammogram Status post ultrasound-guided core needle biopsy 01/25/2015 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, progesterone receptor negative, HER-2/yury negative Status post lumpectomy and sentinel lymph node biopsy 03/03/2015 Pathologic stage [id number] Status post reexcision 03/23/2015 due to positive margin no residual tumor" On 04/07/15 12:12 Siria Dunham wrote "Abnormal left breast mammogram Status post ultrasound-guided core needle biopsy 01/25/2015 Invasive ductal carcinoma Jana receptor negative, progesterone receptor negative, HER-2/yury negative Status post lumpectomy and sentinel lymph node biopsy 03/03/2015 Pathologic stage [id number] Status post reexcision 03/23/2015 due to positive margin no residual tumor" Chronic hyponatremia Diffuse large B-cell lymphoma HTN (hypertension) Morbid obesity with BMI of 40.0-44.9, adult On anticoagulant therapy eliquis daily Surgical History History of breast surgery 03/2015 reexcision of lump of left breast History of colonoscopy History of lumpectomy of left breast 02/2015 with sentinel lymph node biopsy History of needle biopsy 01/2018 left breast--malignant History of tooth extraction History of total hysterectomy with bilateral salpingo-oophorectomy (BSO) History of wisdom tooth extraction Family History Mother Family hx of colon cancer Other No family history of adverse response to anesthesia No pertinent family history Social History Smoking Status: Unknown if ever smoked Second Hand Exposure: Yes ( smoked); Hx Alcohol Use: No Hx Substance Use: No Preferred Language: [place] Islander Communication Ability: Effective Cutting Machine Tender Required: No Beliefs That Will Affect Care: Yazidi Current Living Situation: Spouse Feels Safe at Home: Yes Assistive Devices: None Review of Systems Review of Systems: Unobtainable due to cognitive status Physical Exam Physical Exam: General: +lethargic, +ill, frail appearing elderly female, overweight Head: normocephalic, atraumatic Eyes: PERRL, EOM's intact, conjunctiva non-injected, anicteric Face: +Right sided facial swelling, +firm to palpation +tenderness to palpation, no skin erythema ENT: normal inspection external ears, nose, mucous membranes dry, +suspected dried blood to palate, lips dry and cracked Neck: trachea midline, +palpable tender cervical lymph nodes bilaterally Lungs: normal respiratory effort, diminished breath sounds bilateral bases, 92% on 3L oxygen CV: RRR, no murmur, 1-2+ pretibial edema Abd: normal BS, soft, +palpable mass RUQ, denies tenderness to palpation Ext: no cyanosis, no apparent calf tenderness Neuro: +lethargic, awakens to voice. States first name only, +diffuse weakness bilateral upper and lower extremities Skin: warm, dry, +macerated skin abdominal and groin skin folds Results & Data Results & Data ([facility]) Vital Signs (Past 12 Hours) Vital Signs Temp Pulse Pulse Resp BP Pulse Ox O2 Del Method 04/19/22 17:04 80 21 92 Nasal Cannula 04/19/22 15:43 89 21 98 04/19/22 14:00 21 90 Nasal Cannula 04/19/22 14:48 21 90 Nasal Cannula 04/19/22 14:48 89 21 90 Nasal Cannula 04/19/22 14:13 92 Nasal Cannula 04/19/22 14:13 36.5 C 89 18 105/70 95 Nasal Cannula O2 Flow Rate 04/19/22 17:04 3 04/19/22 15:43 04/19/22 14:00 2 04/19/22 14:48 2 04/19/22 14:48 2 04/19/22 14:13 2 04/19/22 14:13 2 Laboratory Results Short CBC 04/19/22 Range/Units 15:19 WBC 7.55 (4.8-10.8) K/ul Hgb 12.4 (12.0-16.0) g/dl Hct 40.3 (34.1-44.9) % Plt Count 57 L (130-400) K/uL BMP 04/19/22 15:19 Sodium 153 H Potassium 4.1 Chloride 113 H Carbon Dioxide 35 H BUN 57 H Creatinine 0.57 L Glucose 279 H Calcium 9.4 Liver Function 04/19/22 Range/Units 15:19 Total Bilirubin 5.4 H (0.2-1.0) mg/dl Direct Bilirubin 2.7 H (0-0.2) mg/dl AST 31 (13-39) U/L ALT 26 (7-52) U/L Alkaline Phosphatase 65 (34-104) U/L Albumin 2.6 L (3.4-5.0) gm/dl Urine 04/19/22 Range/Units 18:14 Urine Color [place] Urine Appearance Turbid A (Clear) Urine pH 5.5 (4.5-7.5) Ur Specific [place] 1.023 (1.000-1.030) Urine Protein 2+ H (Negative) Urine Glucose (UA) Trace H (Negative) Diagnostic Findings Chest X-Ray 04/19/22 14:41 XR chest 1V portable HISTORY: Altered mental status. COMPARISON: Chest 04/11/2022. FINDINGS: No pneumothorax. Perihilar interstitial/vascular thickening again noted consistent with mild pulmonary edema. Small to moderate bilateral pleural effusions and bibasilar densities persist. The heart remains enlarged. There is a left-sided pacemaker again noted. IMPRESSION: No significant change in the pulmonary edema, bilateral pleural effusions, and bibasilar densities. ACT 112: Negative or not required by law. Electronically signed by: German Lemon M.D. 04/19/2022 4:[address] 04/19/22 14:50 CT head/brain wo con CLINICAL HISTORY: confusion Technique: Contiguous axial CT images of the head were acquired from the base of the skull to the vertex without intravenous contrast administration. Images were viewed in brain, subdural and bone windows. Automated dose lowering techniques and/or adjustment according to patient size were utilized for this exam. Comparison: Comparison is made to CT head 04/08/2022 Findings: Areas of decreased attenuation are present in the periventricular and subcortical white matter bilaterally consistent with small vessel ischemic disease. Generalized cerebral atrophy with commensurate enlargement of the ventricles, sulci, and cisterns is also present. There is no acute intracranial hemorrhage or evidence of acute territorial infarction. No shift of the midline structures, mass effect, or extra-axial abnormalities are shown. Atherosclerotic calcifications are present in the intracranial segments of the internal carotid arteries. Left sphenoid and ethmoid sinus opacification is noted. The orbits appear normal. There are no acute fractures of the calvaria or scalp swelling. Impression: No acute intracranial hemorrhage, no evidence of acute territorial infarction or other acute intracranial disease process. ACT 112: Negative or not required by law. Electronically signed by: José Neil M.D. 04/19/2022 4:38 PM Soft Tissue Neck CT 04/19/22 14:53 CT soft tissue neck w con HISTORY: R facial swelling TECHNIQUE: Multiaxial CT images of the neck were performed following the intravenous administration of contrast. Sagittal and coronal reformations were performed at the workstation by the radiologist. COMPARISON STUDY: Neck CTA 04/05/2022. FINDINGS: There is again noted right-sided lymphadenopathy. This has improved in the interval. Dominant lymph node currently measures 2.0 x 1.0 cm this producing measured 2.4 x 2.0 cm. Decrease in size in the lymphadenopathy/soft tissue mass adjacent to the angle of the right hemimandible. This currently measures 1.9 cm, previously measuring 3.1 cm. Moderate right pleural effusion is again noted. The mastoid air cells are clear. Near complete opacification the left posterior ethmoid air cells and left sphenoid sinus. This is new from the prior study. Right mandibular condyle deformity, unchanged. No suspicious lytic or blastic osseous lesions. Normal thyroid gland. Partially visualized left-sided pacemaker. Mild mucosal thickening throughout the majority of the hypopharynx most pronounced at the right palatine tonsil. This is similar to the prior study. The epiglottis is normal in thickness. No prevertebral fluid collections identified. Enlargement and increased density with adjacent fat stranding within the right parotid gland. This is consistent with a right-sided parotitis. This is new from the prior study. There is subcutaneous edema within the right lateral and anterior neck. Small foci of gas within the neck appear to correspond to intravenous contrast and may be due to prior line insertion. 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 Moderate calcified plaque within the bilateral carotid bifurcations without significant stenosis. No loculated fluid collections to suggest an abscess. IMPRESSION: 1. Interval development of a right-sided parotitis. 2. The right-sided lymphadenopathy has slightly improved. 3. Mucosal thickening throughout the hypopharynx most pronounced at the right palatine tonsil persists. No significant airway compromise at this time. 4. No change in the moderate right pleural effusion. ACT 112: Negative or not required by law. Electronically signed by: German Lemon M.D. 04/19/2022 4:43 PM ECG Findings: + paced rhythm Supervising Physician Co-Signing Physician Notes I have seen and examined the patient and have discussed the case with the provi omar above. I agree with the assessment and plan as stated. 76 yo F with recent dx of DBCL presents with altered mental status 2/2 acute hypernatremia. She has a rapidly growing jaw tumor on her right face and also a right sided abdominal mass that appears to be new and as big as my hand. We are getting an abdominal/pelvis CT scan this evening to confirm. We are treating with free water to get her sodium back in range and she is obtunded right now. Daughter is wanting to be aggressive with treatment options for mom at this time and this was conveyed to oncology. Currently checking phos and uric acid to ensure no evidence of TLS, but don't suspect that at this time. High risk of this moving forward, so it will be important to hydrate as tolerated and add allopurinol when she is safe to swallow. Because of some bleeding with the jaw mass (and worsening thrombocytopenia) we have held the apixaban, and she is currently in sinus rhythm. No CHIO present. Physical exam as above with abdominal mass that is firm, nonmobile and nontender on the RUQ. Repeat BMP this evening was likely pulled from a dextrose containing line and her real glucose is not 661, it is in the 230s. Hyperglycemia is likely steroid induced. No h/o diabetes and screening A1C ordered. Agree with empiric antibiotics given possibility of infection with rapidly changing anatomy and bleeding from the jaw tumor. Currently no evidence of infection or sepsis. Cont supportive rehydration efforts overnight and follow up with oncology for her plan. She is currently strict NPO until formal eval by ENT and repeat speech evaluation. I spoke wtih her daughter, Mercy, by phone and updated her on the plan. Mom is a confirmed Full Code. Daughter verbalized understanding and all questions were answered to her satisfaction. DO Rao
[2022-04-19 18:49] LABS: Appearance Urine Turbid (Clear); Bacteria Urine Automated 4+ (Negative); Bilirubin Urine 1+ (Negative); Blood Urine 3+ (Negative); Color Urine Orange; Glucose Urine UA Trace (Negative); Ketones Urine Negative (Negative); Leukocyte Esterase Urine 3+ (Negative); Nitrite Urine Positive (Negative); Protein Urine 2+ (Negative); RBC Urine Automated >30 /hpf (0-4); Specific Gravity Urine 1.023 (1.000-1.030); Urobilinogen Urine Positive (Negative); WBC Urine Automated >30 /hpf (0-5); pH Urine 5.5 (4.5-7.5)
[2022-04-19] MEDS ORDERED: CARBOHYDRATES FOR HYPOGLYCEMIA PO PRN (20:57)
[2022-04-19] MEDS ORDERED: ONDANSETRON INJ 2 MG/ML 2 ML VIAL IV PRN (20:57)
[2022-04-19] MEDS ORDERED: GLUCOSE 40% GEL 15 GM TUBE PO PRN (20:57)
[2022-04-19] MEDS ORDERED: DEXTROSE 50% 50 ML SYRINGE IV PRN (20:57)
[2022-04-19] MEDS ORDERED: GLUCAGON FOR INJ 1 MG VIAL SQ PRN (20:57)
[2022-04-19] MEDS ORDERED: GLUCOSE 10 TAB/TUBE PO PRN (20:57)
[2022-04-19] MEDS ORDERED: INSULIN ASPART PER UNIT SC SCH (21:00)
[2022-04-19] MEDS ORDERED: ACETAMINOPHEN 1,000 MG/100 ML VIAL IV PRN (21:31)
[2022-04-19] MEDS: NYSTATIN POWDER 15GM BTL EXT SCH (22:09)
[2022-04-19 22:13] LABS: BUN Creatinine Ratio 84.7 (10-20); Creatinine Clr Calc Pharmacy 97.5 ml/min; Est GFR (African American) 103.2 ml/min; Potassium 3.5 mmol/L (3.5-5.1); Uric Acid 4.2 mg/dl (2.6-7.2)
[2022-04-19 22:17] LABS: Troponin I High Sensitivity 102.3 pg/ml (0-14)
[2022-04-19] MEDS ORDERED: LANTUS PER UNIT CHARGE SQ ONE (22:22)
[2022-04-20] MEDS: AMPICILLIN/SULBACTAM SOD 3,000 MG in 0.9 % SODIUM CHLORIDE 100 ML IV SCH ×3 (00:52→11:57)
[2022-04-20] MEDS ORDERED: POTASSIUM PHOS 3 MMOL/1 ML INFUSION IV STA (01:58)
[2022-04-20] MEDS ORDERED: INSULIN ASPART PER UNIT SC SCH ×2 (02:00→06:00)
[2022-04-20] MEDS ORDERED: ALBUMIN 25% 100 mL 25 GM/100 ML VIAL IV ONE (02:00)
[2022-04-20] MEDS ORDERED: POTASSIUM PHOSPHATE 18 MMOL in SODIUM CHLORIDE 0.9% 500 ML IV ONE (02:15)
[2022-04-20 04:23] LABS: BUN Creatinine Ratio 81.8 (10-20); Calcium 8.6 mg/dl (8.5-10.1); Creatinine Clr Calc Pharmacy 104.6 ml/min; Est GFR (African American) 105.6 ml/min; Est GFR (Non-African American) 91.1 ml/min; Potassium 4.6 mmol/L (3.5-5.1)
[2022-04-20 06:31] LABS: Anisocytosis Present; Basophils # (auto) 0.08 K/uL (0-0.2); Basophils % (auto) 2.1 %; Hemoglobin 10.6 g/dl (12.0-16.0); Immature Granulocytes # (auto) 0.32 K/uL (0.00-0.02); Immature Granulocytes % (auto) 8.4 %; Lymphocytes # (auto) 0.13 K/uL (1.2-3.4); Lymphocytes % (auto) 3.4 %; Mean Corpuscular Hgb Conc 31.2 g/dL (32.0-36.0); Mean Corpuscular Volume 99.4 fL (80.0-100.0); Mean Platelet Volume 11.3 fL (9.4-12.3); Monocytes # (auto) 0.01 K/uL (0.24-0.82); Monocytes % (auto) 0.3 %; Neutrophils # (auto) 3.25 K/uL (1.4-6.5); Neutrophils % (auto) 85.8 %; Platelet Count 51 K/uL (130-400); RDW Coefficient of Variation 20.7 % (11.5-14.5); RDW Standard Deviation 72.4 fL (36.4-46.3); Red Blood Count 3.42 M/uL (3.93-5.22); White Blood Count 3.79 K/ul (4.8-10.8)
[2022-04-20 06:32] LABS: Albumin Globulin Ratio 1.1 (0.9-2); Albumin Level 2.5 gm/dl (3.4-5.0); BUN Creatinine Ratio 114.3 (10-20); Bilirubin,Total 4.3 mg/dl (0.2-1.0); Calcium 9.2 mg/dl (8.5-10.1); Est GFR (African American) 115.4 ml/min; Est GFR (Non-African American) 99.6 ml/min; Globulin 2.3 gm/dl (2.5-4.0); Magnesium 2.4 mg/dl (1.7-2.4); Phosphorus 2.1 mg/dl (2.5-4.9); Potassium 3.6 mmol/L (3.5-5.1); Total Protein 4.8 gm/dl (6.0-8.3)
[2022-04-20 06:37] LABS: Estimated Average Glucose 117 mg/dl; Hemoglobin A1C 5.7 % (4.5-5.6)
--- NOTE | 2022-04-20 07:40 | CT Scan Report ---
CT SCAN OF THE ABDOMEN AND PELVIS WITHOUT IV CONTRAST CLINICAL HISTORY: Lymphoma. COMPARISON STUDY: Abdominal CT dated 04/06/2022. TECHNIQUE: CT scan of the abdomen and pelvis is performed from the lung bases to the proximal femora. Images are reviewed in the axial, sagittal, and coronal planes. IV contrast was not administered for this examination as per the referring clinician. Note that the examination was performed in signific antly suboptimal fashion without oral or IV contrast. There is also motion artifact, as well as strea k artifact from the arms which could not be elevated of the abdomen. A dose lowering technique was ut ilized adhering to the principles of ALARA. CT DOSE: 1702.02 mGy.cm FINDINGS: Lung bases: The heart is enlarged noting a small pericardial effusion. The coronary arteries are dens amirah calcified. Pacemaker leads are in place. There are [id number] pleural effusions with dense bibasilar consolidation. Liver: The unenhanced liver is normal in size, contour, and attenuation. There is no intrahepatic kwame iary ductal dilatation. A 12 mm cyst is noted in the left lobe. Gallbladder: Vicarious excreted contrast. The gallbladder. Spleen: Normal in size and attenuation, measuring 10.2 cm in length. There is a calcified splenic gra nuloma. Pancreas: Trace fluid is seen adjacent to pancreatic tail. The unenhanced pancreas is moderately atro phic and grossly unremarkable. Adrenal glands: Unremarkable. Kidneys: The unenhanced kidneys are normal in size and without hydronephrosis. Excreted IV contrast i s present within the renal collecting systems. This degrades assessment for nephrolithiasis. There is no evidence of contour deforming renal mass lesion. Abdominal vasculature: The abdominal aorta is normal in course and caliber noting advanced atheroscle rotic calcification. Bowel: There is no bowel obstruction. Residual enteric contrast is noted in the colon. There is mild colonic diverticulosis without CT evidence of acute diverticulitis. The appendix is well-visualized and normal. Peritoneum: There is no intraperitoneal free air or abdominal ascites. There is mesenteric edema. The re is laxity of the ventral wall the pelvis with diastases of the rectus musculature and protrusion o f abdominal contents. There is a 1.6 cm focus of irregular nodularity within the pelvic mesentery on image #[id number]. A 1.4 cm irregular nodule seen on image #[id number]. These have significantly decreased in size as compared to 04/06/2022. Lymphadenopathy: None. Pelvic viscera: The bladder is decompressed around a Catalan catheter and could not be assessed. There is intraluminal gas, as well as excreted IV contrast within the bladder. The uterus is surgically abs ent. No adnexal lesion is seen. Nodularity along the left aspect of the vaginal cuff has almost compl etely resolved. Skeletal structures: The skeletal structures are osteopenic. There is moderate lumbosacral spondylosi s. No lytic or blastic lesions are seen. Soft tissues: There is mild body wall edema. IMPRESSION: 1. Significantly suboptimal examination bilateral and IV contrast. There is also streak and motion ar tifact. 2. Mesenteric nodules seen on 04/06/2022 have significantly decreased in size from previous. Nodularit y along the left vaginal cuff has almost completely resolved. 3. There are small to moderate pleural effusions with dense bibasilar consolidation. This has signifi cantly increased as compared to 04/06/2022. Clinical correlation will be required. 4. Trace nonspecific fluid is seen adjacent to the pancreatic tail. Correlate with serum lipase level s. 5. Additional findings as above. ACT 112: Negative or not required by law. Electronically signed by: Burke Hernandez M.D. 04/20/2022 7:38 AM
[2022-04-20] MEDS: DOCUSATE SODIUM 100 MG CAP PO SCH ×2 (08:23→20:16)
[2022-04-20] MEDS: NYSTATIN POWDER 15GM BTL EXT SCH ×2 (08:23→21:17)
[2022-04-20] MEDS: METOPROLOL TARTRATE 1 MG/ML VIAL IV SCH ×3 (08:23→20:38)
[2022-04-20] MEDS ORDERED: GLUCOSE 40% GEL 15 GM TUBE PO PRN (08:28)
[2022-04-20] MEDS ORDERED: GLUCAGON FOR INJ 1 MG VIAL SQ PRN (08:28)
[2022-04-20] MEDS ORDERED: CARBOHYDRATES FOR HYPOGLYCEMIA PO PRN (08:28)
[2022-04-20] MEDS ORDERED: GLUCOSE 10 TAB/TUBE PO PRN (08:28)
[2022-04-20] MEDS ORDERED: DEXTROSE 50% 50 ML SYRINGE IV PRN (08:28)
[2022-04-20] MEDS ORDERED: PHARMACY GLYCEMIC MGMT CONSULT PRN (08:31)
[2022-04-20] MEDS ORDERED: METOPROLOL SUCC 25MG EXT REL TAB PO SCH (09:00)
[2022-04-20] MEDS ORDERED: LANTUS PER UNIT CHARGE SQ SCH (09:00)
--- NOTE | 2022-04-20 09:37 | Palliative Care Consultation ---
Date of Consultation April 20, 2022 History of Present Illness Reason for Consultation: goals of care Requesting Physician: ISHA Riojas Attending Physician: Kiran Cali MD Allergies Allergy/AdvReac Type Severity Reaction Status Date / Time No Known Allergies Allergy Verified 04/19/22 17:29 Home Medications Medication Instructions Recorded Confirmed Type multivitamin (Multiple Vitamins 1 tab PO QAM 10/15/18 04/19/22 History tablet) apixaban 5 mg tablet 5 mg PO BID 01/29/19 04/19/22 History losartan 25 mg tablet 25 mg PO DAILY 03/26/22 04/19/22 History melatonin 3 mg tablet 3 mg PO HS 03/26/22 04/19/22 History cyanocobalamin (vitamin B-12) 1,000 mcg PO DAILY #30 caps 04/18/22 04/19/22 Rx 1,000 mcg capsule lidocaine 5 % topical patch 1 patch transdermal QAM 30 days 04/18/22 04/19/22 Rx #30 ea metoprolol succinate 25 mg 25 mg PO DAILY 30 days #30 tabs 04/18/22 04/19/22 Rx tablet,extended release 24 hr nystatin 100,000 unit/gram topical 1 applic EXT BID 10 days #50 grams 04/18/22 04/19/22 Rx powder (Nystop) paroxetine HCl 10 mg tablet 10 mg PO DAILY 30 days #30 tabs 04/18/22 04/19/22 Rx docusate sodium 100 mg capsule 100 mg PO BID 04/19/22 04/19/22 History Patient History Medical History Atrial fibrillation on eliquis follows with Dannie Shields Breast cancer 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 (01/27/15) "Abnormal left breast mammogram Status post ultrasound-guided core needle biopsy 01/25/2015 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, progesterone receptor negative, HER-2/yury negative Status post lumpectomy and sentinel lymph node biopsy 03/03/2015 Pathologic stage [id number] Status post reexcision 03/23/2015 due to positive margin no residual tumor Status post completion of radiation therapy 06/10/2015 received 6120 cGy " On 07/09/15 10:05 Siria Dunham wrote "Abnormal left breast mammogram Status post ultrasound-guided core needle biopsy 01/25/2015 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, progesterone receptor negative, HER-2/yury negative Status post lumpectomy and sentinel lymph node biopsy 03/03/2015 Pathologic stage [id number] Status post reexcision 03/23/2015 due to positive margin no residual tumor " On 07/09/15 10:05 Siria Dunham wrote "Abnormal left breast mammogram Status post ultrasound-guided core needle biopsy 01/25/2015 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, progesterone receptor negative, HER-2/yury negative Status post lumpectomy and sentinel lymph node biopsy 03/03/2015 Pathologic stage [id number] Status post reexcision 03/23/2015 due to positive margin no residual tumor " On 04/07/15 12:14 Siria Dunham wrote "Abnormal left breast mammogram Status post ultrasound-guided core needle biopsy 01/25/2015 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, progesterone receptor negative, HER-2/yury negative Status post lumpectomy and sentinel lymph node biopsy 03/03/2015 Pathologic stage [id number] Status post reexcision 03/23/2015 due to positive margin no residual tumor" On 04/07/15 12:12 Siria Dunham wrote "Abnormal left breast mammogram Status post ultrasound-guided core needle biopsy 01/25/2015 Invasive ductal carcinoma Jana receptor negative, progesterone receptor negative, HER-2/yury negative Status post lumpectomy and sentinel lymph node biopsy 03/03/2015 Pathologic stage [id number] Status post reexcision 03/23/2015 due to positive margin no residual tumor" Chronic hyponatremia Diffuse large B-cell lymphoma HTN (hypertension) Morbid obesity with BMI of 40.0-44.9, adult On anticoagulant therapy eliquis daily Surgical History History of breast surgery 03/2015 reexcision of lump of left breast History of colonoscopy History of lumpectomy of left breast 02/2015 with sentinel lymph node biopsy History of needle biopsy 01/2018 left breast--malignant History of tooth extraction History of total hysterectomy with bilateral salpingo-oophorectomy (BSO) History of wisdom tooth extraction Family History Mother Family hx of colon cancer Other No family history of adverse response to anesthesia No pertinent family history Social History Smoking Status: Unknown if ever smoked Second Hand Exposure: Yes ( smoked); Hx Alcohol Use: No Hx Substance Use: No Preferred Language: Amharic Communication Ability: Effective Clinical Medical Transcriptionist Required: No Beliefs That Will Affect Care: [employer] Current Living Situation: Spouse Feels Safe at Home: Yes Assistive Devices: None Results & Data ([facility]) Vital Signs (Past 12 Hours) Vital Signs Temp Pulse Pulse Resp BP BP Pulse Ox 04/20/22 08:29 04/20/22 08:23 89 91/59 L 04/20/22 07:14 97.5 F L 90 19 103/69 93 04/20/22 04:03 97.5 F L 89 20 94/65 L 93 04/19/22 23:30 89 04/19/22 23:13 97.3 F L 89 20 92/60 L 93 O2 Del Method O2 Flow Rate 04/20/22 08:29 Nasal Cannula 3 04/20/22 08:23 04/20/22 07:14 Nasal Cannula 3 04/20/22 04:03 Nasal Cannula 3 04/19/22 23:30 04/19/22 23:13 Nasal Cannula 3 PG Care Time/CCT Total # of Minutes Spent Total Time Spent with Patient: Total time spent is greater than 50% in coordination of care (as documented) at patient's floor/unit and/or counseling patient: Coding
--- NOTE | 2022-04-20 09:47 | Pharmacy Report ---
Pharmacy Glycemic Short Note 2 - Date of Service April 20, 2022 - Glycemic Short BSG Results (Last 24 hours): 04/19/22 04/19/22 04/19/22 14:26 15:19 21:24 Glucose 279 H 661 H* POC Glucose 271 H 04/19/22 04/19/22 04/20/22 22:05 22:20 02:11 Glucose POC Glucose 232 H 244 H 258 H 04/20/22 04/20/22 04/20/22 03:27 05:39 06:08 Glucose 233 H 223 H POC Glucose 221 H OUTPATIENT ANTIDIABETIC REGIMEN: * None * A1c 5.7% 04/20/22 ASSESSMENT: * 76 year old female, PMH of PAF, HTN, HL, breast CA, recent dx B-cell lymphoma presented to ER from [facility] right sided facial swelling, parotitis now on IV Unasyn, AMS, hypernatremic on IV D5. * No history of DM, A1c 5.7% today, given 5 units IV insulin yesterday in ER, and 10 units of Lantus last night, and correctional insulin Q4H since admission. * Patient remains NPO until speech eval today. * Blood sugars still > 200mg/dl today - increase basal and tighten CF/CR at this time. PLAN FOR INPATIENT GLYCEMIC CONTROL: * Basal insulin * Lantus 15 units SQ BID * Bolus insulin * NovoLog per scale ACHS or Q6hrs while NPO * Goal Range: Low 110 mg/dL - High 140 mg/dL * Correction Factor: 20 mg/dL/unit * Nutritional / Prandial insulin per carb ratio of 1 unit per 7 grams CHO consumed
--- NOTE | 2022-04-20 10:16 | XRay Report ---
XR chest 1V portable HISTORY: Evaluate PICC PLACEMENT COMPARISON: Chest 04/19/2022. FINDINGS: Interval placement of a right PICC which appears to terminate at the distal SVC/cavoatrial junction. No pneumothorax. Left-sided pacemaker. Pulmonary edema, cardiomegaly, moderate bilateral pl eural fusions, and bibasilar densities persist. IMPRESSION: 1. The right PICC appears to terminate at the distal SVC/cavoatrial junction. 2. Redemonstration of the pulmonary edema, bilateral pleural effusions, and bibasilar densities. ACT 112: Negative or not required by law. Electronically signed by: German Lemon M.D. 04/20/2022 10:15 AM
[2022-04-20] MEDS: LANTUS PER UNIT CHARGE SQ SCH ×2 (10:32→20:32)
[2022-04-20] MEDS: DEXTROSE 5% 1,000 ML IV SCH ×3 (10:33→22:25)
--- NOTE | 2022-04-20 10:39 | Palliative Care Consultation ---
Date of Consultation April 20, 2022 Assessment & Plan (1) Palliative care encounter: Met with patient and her family at the bedside. Daughter states they are awaiting the arrival of another daughter before meeting with the primary teams. They would like her transferred to the LTAC in [place] and daughter states she has already been in contact with them, she has been assured patient can have her chemotherapy while admitted to LTAC. They do not want her to go back to [facility]. Daughter shares that when she was recovering from COVID, she was discharged down to LTAC and did not feel where she was a patient for 3 months and she feels very confident that they will be able to recover her mother back to a better baseline. The above conversation was conveyed to the medical teams. Oncology and primary team will be coming to meet with the patient when the other daughter arrives. (2) Advanced care planning/counseling discussion: Patient's daughter indicates that as a family they wish to consider all current modalities for an aggressive course of cancer directed therapies. They do not wish to consider any changes in her regimen or CODE STATUS. (3) Cancer related pain: Patient does admit to pain however when offered various pain medications including Tylenol or something stronger, she continued to refuse everything and expressed a belief that if she gave consent to be administered any pain medication then we would force her to remain in the hospital. Despite multiple assurances that this was not the case and that our goal is to assure she is more comfortable, she continued to refuse pain medicine intervention. (4) Diffuse large B-cell lymphoma: Plan Discussions as noted above. Patient does not desire any palliative med interventions for pain and symptom management, family indicates desire to continue along an aggressive course of cancer directed tx. They do not want to discuss any deeper issues re ACP/code status, etc. I discussed her case with Dr. Sepulveda: her imaging does show response to therapy and it is hopeful she may have more response with continued tx. She may be sicker before she gets better. Dtr is quite clear she wants pt at [facility]. At this time, I will sign off and remain available to reengage if needed. I have updated the primary team and oncology. Thank you for this interesting consult. Glenis Chapman DNP Clinical Director, Palliative Medicine History of Present Illness Reason for Consultation: "recent dx lymphoma, goals" Attending Physician: Kiran Cali MD History of Present Illness Mirna Robbins is a 76yo female with newly dx B cell lymphoma who was admitted from rehab last night with right facial swelling, lethargy x1 day. She had a recent admission with dc to rehab 04/18/22, this is a <48hr readmission. During the prior admission she had hyponatremia felt to be due to hypervolemia, treated with fluid restriction, BID Lasix which had to be discontinued due to hypotension. Oncology felt she had rapid progression disease and she was started on prednisone and IV cyclophosphamide.She required Zarxio (filgrastim/G-CSF).She developed hypercalcemia requiring Zometa. She is seen at bedside together with family present: , daughter/son-in- law. Daughter states they are awaiting on the arrival of another daughter and then would like to speak to the medical team. Daughter states that she wants patient transferred to LTAC in [place], she has been in touch with them and they have assured her that patient can continue her chemotherapy while at LTAC. PMH: PAF, HTN, dyslipidemia, h/o breast cancer, recent diagnosis 04/2022 diffuse large B-cell lymphoma - pathology demonstrates high grade b cell lymphoma consistent with DLBCL. Head CT in ED did not find acute intracranial hemorrhage, infarction or abnormality. CT Soft tissue neck did find right sided parotiditis with right sided LAD, mucosal thickening through the hypopharynx most pronounced at right palatine tonsil/no signif airway compromise noted. She was started on Unasyn. Dr Sepulveda's note 04/11/22 reviewed: "Biopsy shows a diffuse large B-cell lymphoma and she has radiologically widespread disease stage III/IV Evolving thrombocytopenia suggestd that there may be marrow involvement. Full staging work-up would include a PET scan and bone marrow. We may have a more urgent situation, however, with her declining overall performance status and the thro mbocytopenia which even if not due to specific involvement of bone marrow with lymphoma could also be an autoimmune process associated with that. She does not seem to have septic parameters as a cause. We will check urgent B12 and folic acid as well as a peripheral blood smear by the pathologist to help us discern any other contributors to the current thrombocytopenia Baseline LDH and uric acid have been requested as well as a prelude to starting treatment. I spoke with the patient at her request also with her daughter Yanely. We have an urgent situation of what could be a rapidly progressive disease that could become life-threatening in and of itself in the near future. Her performance status, however, suggests that she may not be well enough to initially tolerate "full" chemotherapy with a regimen like RCHOP. I have often found success with cytoreduction in patients such as this with initial course of steroids (prednisone 1 mg/kg daily for 5 days which if there are no objections from consultants could start today) and a single dose of intravenous cyclophosphamide which we can give in the hospital. It might be prudent to start with this more streamlined approach to at least get some cytoreduction and hopefully make her better enough for additional staging and a full course of chemotherapy in the future. Given the thrombocytopenia there would be the risk of worsening thr ombocytopenia and/or neutropenia even just with is trimmed down regimen but I think that at least some urgengt cytoreduction is the only path to improvement if she is to find that. I made it clear to the patient and especially to her daughter Yanely that how well she responds and for how long is unclear and that there may be life-threatening complications that occur as a result of the disease and/or of its treatment. We will plan to have a family meeting on evening at 5 PM to finalize the plans for the cyclophosphamide but would suggest that we could start the prednisone today. In and of itself prednisone is sometimes enough to ameliorate the situation. If her uric acid is not excessively elevated, however, it would be worthwhile to start allopurinol today as well at 300 mg daily and monitor electrolytes and uric acid closely even as we just start the prednisone for signs of tumor lysis. If uric acid is elevated we will need to consider rasburicase. It would be worthwhile for palliative care to be involved in ongoing management as well." Prognosis is guarded. Patient is seen at bedside together with her family. She is somewhat altered in terms of her mental status and not following commands consistently. Her speech is garbled and at times unintelligible. Her daughter is able to understand what patient is saying somewhat better than me. Patient does indicate she wishes to leave the hospital immediately. Allergies Allergy/AdvReac Type Severity Reaction Status Date / Time No Known Allergies Allergy Verified 04/19/22 17:29 Home Medications Medication Instructions Recorded Confirmed Type multivitamin (Multiple Vitamins 1 tab PO QAM 10/15/18 04/19/22 History tablet) apixaban 5 mg tablet 5 mg PO BID 01/29/19 04/19/22 History losartan 25 mg tablet 25 mg PO DAILY 03/26/22 04/19/22 History melatonin 3 mg tablet 3 mg PO HS 03/26/22 04/19/22 History cyanocobalamin (vitamin B-12) 1,000 mcg PO DAILY #30 caps 04/18/22 04/19/22 Rx 1,000 mcg capsule lidocaine 5 % topical patch 1 patch transdermal QAM 30 days 04/18/22 04/19/22 Rx #30 ea metoprolol succinate 25 mg 25 mg PO DAILY 30 days #30 tabs 04/18/22 04/19/22 Rx tablet,extended release 24 hr nystatin 100,000 unit/gram topical 1 applic EXT BID 10 days #50 grams 04/18/22 04/19/22 Rx powder (Nystop) paroxetine HCl 10 mg tablet 10 mg PO DAILY 30 days #30 tabs 04/18/22 04/19/22 Rx docusate sodium 100 mg capsule 100 mg PO BID 04/19/22 04/19/22 History Patient History Medical History Atrial fibrillation on eliquis follows with [facility] Breast cancer 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 (01/27/15) "Abnormal left breast mammogram Status post ultrasound-guided core needle biopsy 01/25/2015 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, progesterone receptor negative, HER-2/yury negative Status post lumpectomy and sentinel lymph node biopsy 03/03/2015 Pathologic stage [id number] Status post reexcision 03/23/2015 due to positive margin no residual tumor Status post completion of radiation therapy 06/10/2015 received 6120 cGy " On 07/09/15 10:05 Siria Dunham wrote "Abnormal left breast mammogram Status post ultrasound-guided core needle biopsy 01/25/2015 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, progesterone receptor negative, HER-2/yury negative Status post lumpectomy and sentinel lymph node biopsy 03/03/2015 Pathologic stage [id number] Status post reexcision 03/23/2015 due to positive margin no residual tumor " On 07/09/15 10:05 Siria Dunham wrote "Abnormal left breast mammogram Status post ultrasound-guided core needle biopsy 01/25/2015 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, progesterone receptor negative, HER-2/yury negative Status post lumpectomy and sentinel lymph node biopsy 03/03/2015 Pathologic stage [id number] Status post reexcision 03/23/2015 due to positive margin no residual tumor " On 04/07/15 12:14 Siria Dunham wrote "Abnormal left breast mammogram Status post ultrasound-guided core needle biopsy 01/25/2015 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, progesterone receptor negative, HER-2/yury negative Status post lumpectomy and sentinel lymph node biopsy 03/03/2015 Pathologic stage [id number] Status post reexcision 03/23/2015 due to positive margin no residual tumor" On 04/07/15 12:12 Siria Dunham wrote "Abnormal left breast mammogram Status post ultrasound-guided core needle biopsy 01/25/2015 Invasive ductal carcinoma Jana receptor negative, progesterone receptor negative, HER-2/yury negative Status post lumpectomy and sentinel lymph node biopsy 03/03/2015 Pathologic stage [id number] Status post reexcision 03/23/2015 due to positive margin no residual tumor" Chronic hyponatremia Diffuse large B-cell lymphoma HTN (hypertension) Morbid obesity with BMI of 40.0-44.9, adult On anticoagulant therapy eliquis daily Surgical History History of breast surgery 03/2015 reexcision of lump of left breast History of colonoscopy History of lumpectomy of left breast 02/2015 with sentinel lymph node biopsy History of needle biopsy 01/2018 left breast--malignant History of tooth extraction History of total hysterectomy with bilateral salpingo-oophorectomy (BSO) History of wisdom tooth extraction Family History Mother Family hx of colon cancer Other No family history of adverse response to anesthesia No pertinent family history Social History Smoking Status: Unknown if ever smoked Second Hand Exposure: Yes ( smoked); Hx Alcohol Use: No Hx Substance Use: No Preferred Language: Cambodian Communication Ability: Effective 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 Speech is garbled and at times unintelligible. Neck is supple with some adenopathy greater on the right than the left. There is significant swelling of the right side of her face and auricular preauricular region. Heart tones are slightly tachycardic, + S1-S2 There is no JVD noted There is a limited anterior chest exam which reveals bilateral coarse rhonchi, slightly diminished overall. No acute wheezing noted. There is no increased respiratory effort. Abdomen is softly distended, bowel sounds present throughout, no rebound or guarding. Generalized weakness, extremities without any obvious cyanosis or clubbing. Scattered ecchymoses. There is mild redness at the peripheral IV site noted on the right forearm. Patient is alert to herself and will at times answer some questions appropriately but her speech is garbled and at times difficult to understand. She is not able to consistently follow commands. Results & Data ([facility]) Vital Signs (Past 12 Hours) Vital Signs Temp Pulse Pulse Resp BP BP Pulse Ox 04/20/22 08:29 04/20/22 08:23 89 91/59 L 04/20/22 07:14 36.4 C L 90 19 103/69 93 04/20/22 04:03 36.4 C L 89 20 94/65 L 93 04/19/22 23:30 89 04/19/22 23:13 36.3 C L 89 20 92/60 L 93 O2 Del Method O2 Flow Rate 04/20/22 08:29 Nasal Cannula 3 04/20/22 08:23 04/20/22 07:14 Nasal Cannula 3 04/20/22 04:03 Nasal Cannula 3 04/19/22 23:30 04/19/22 23:13 Nasal Cannula 3 Laboratory Results Labs and imaging reviewed. Diagnostic Findings Labs and imaging reviewed. PG Care Time/CCT Total # of Minutes Spent Total Time Spent: 60 Total Time Spent with Patient: Total time spent is greater than 50% in coordination of care (as documented) at patient's floor/unit and/or counseling patient: I spent 60 minutes overall addressing this case: 10 in medical data review/discussion with referring provider(s) and/or preparation for the visit 35 in direct interaction with the patient and family (15) Advance Care Planning/Goals of Care discussions as detailed above in note (must be >16min) 5 in subsequent review and synthesis of assessment and plan 10 in communicating with other providers regarding the patient's case: [] [place] [address] Inpt Consult Level 5 Patient Type New History Comprehensive Exam Detailed Medical Decision Making High Complexity Diagnoses Palliative care encounter Z51.5 Advanced care planning/counseling discussion Z71.89 Cancer related pain G89.3 Diffuse large B-cell lymphoma C83.30
--- NOTE | 2022-04-20 11:28 | Hospitalist Progress Note ---
Date of Service April 20, 2022 Assessment & Plan (1) Acute hypernatremia: (2) Altered mental status: Plan: Patient is 76-year-old female with PMH PAF, HTN, dyslipidemia, h/o breast cancer, recent diagnosis of B-cell lymphoma presented to ER from [facility] right sided facial swelling, lethargy x 1 day. Recent admission with hyponatremia that was thought secondary to hypervolemic hyponatremia and initially treated with 1.5 L fluid restriction, Lasix 20 mg twice daily, however Lasix was later discontinued secondary to hypotension Hypernatremia likely due to poor oral intake given her parotid swelling CT head:No acute intracranial hemorrhage, no acute infarction, no acute intracranial abnormality Plan: -Increase in dextrose 5% to 175 cc/h. Will obtain BMP on regular interval; next one in 4:30 PM. Titrate based on response. Midline ordered for vascular access. -Unable to take anything p.o.; failed swallow evaluation. -Mouth care and lidocaine viscous ordered. -PACKAGING INSPECTOR on board. (3) Sepsis: (4) Urinary tract infection: (5) MRSA bacteremia: (6) Parotitis: Plan: Reported right-sided facial swelling x1 day CT soft tissue neck: Interval development of a right-sided parotitis. The right- sided lymphadenopathy has slightly improved. Mucosal thickening throughout the hypopharynx most pronounced at the right palatine tonsil persists. No significant airway compromise at this time. Urinalysis suggestive of infection. Urine culture gram-negative bacilli.. Plan; Given her immunocompromise status; started on cefepime, vancomycin and Flagyl. We will follow clinical improvement and response. -Vancomycin for MRSA bacteremia; will obtain blood culture today and tomorrow. Patient had PICC line placed due to unavailability of IV access. will remove it; place midline instead of it. will follow up on blood cx. ID consulted; appreciate recommendation. KEEGAN ordered. (7) Diffuse large B-cell lymphoma: (8) Thrombocytopenia: Plan: On 04/05; patient had stroke alert for which CTA head and neck was done. Pathological bilateral cervical lymphadenopathy was seen. Patient underwent FNAC of left axillary lymph node on 04/07. She was diagnosed with diffuse B-cell lymphoma. Oncology concerned she has rapidly progressive disease. Recent treatment with prednisone and dose of IV cyclophosphamide. Was also given Neupogen. Developed hypercalcemia and was given Zometa. CT neck on admission shows slight improvement in right-sided lymphadenopathy. Plan; Discussed with Dr. Sepulveda; based on the imaging- there is slight improvement on her cervical lymphadneopathy. Recommend to obtain noncontrast CT chest to look at chest nodes. Await acute stabilization and count recovery from first round of chemotherapy before giving any additional cycles. (9) Hyperglycemia: Plan: Secondary to D5 and recently received high dose steroids as part of chemotherapy. Currently on lantus and novolog. HbA1c- 5.7%. (10) Cardiomyopathy: Plan: 03/27/2022 echo: EF: 45-50%, mild global hypokinesis, mild concentric LVH, mildly dilated right ventricle, severe left atrial dilation, mild , mild MR, small pericardial effusion without evidence of tamponade Will hold on lasix at this time Monitor I's & O's (11) Paroxysmal atrial fibrillation: Plan: s/p AV william ablation and biventricular pacemaker placement last admission. Anticoagulated on Eliquis 03/27/2022 echo: EF: 45-50%, mild global hypokinesis, mild concentric LVH, mildly dilated right ventricle, severe left atrial dilation, mild , mild MR, small pericardial effusion without evidence of tamponade A. fib RVR continued despite treatment with Cardizem drip, IV beta-blockers, amiodarone. Had cardioversion in 03/30/2022. Had biventricular pacemaker implanted on 04/03/22. Had AV william ablation on 04/04/22 Current paced rhythm on EKG Plan: Holding Eliquis given thrombocytopenia and hold metoprolol given her low BP (12) Elevated troponin: Plan: Likely demand ischemia High-sensitivity troponin: 100s; no delta difference. EKG paced rhythm (13) Pleural effusion: (14) Hypoxia: Plan: Recent history bilateral pleural effusions. 04/06/2022: Thoracentesis, total 1.3L removed. Cytology showed lymphocytes and reactive mesothelial cells and red blood cells, no malignant cells seen Today CT soft tissue neck: No change in the moderate right pleural effusion 90% on 2L oxygen via NC. Negative rapid Covid-19 test Supplemental oxygen as needed Monitor (15) HTN (hypertension): Plan: SBP in ER 105 Recent hospitalization with noted low BPs Hold losartan, monitor BP (16) Breast cancer: Plan: History of left breast cancer s/p lumpectomy in 2014 DVT Prophylaxis SCDs Full Code as per discussion with pt's daughter; Goals of care discussed with Shon rahman today; remains full code. Discussed with Daughters, at bedside. Admission and Anticipated Discharge Date Admission Date: April 19, 2022 Subjective Patient seen and examined at bedside. Lethargic but awake able by voice. She is unable to speak and mumbles when she tries to do so. She complains of pain inside her mouth. Unable to pass swallow evaluation; recommended to keep n.p.o. and ice chips as tolerated. She was not able to receive IV dextrose overnight due to issues with her venous access. PICC line placed in the morning. Review of Systems Review of Systems: Unobtainable due to reduced consciousness Physical Exam Physical Exam: Constitutional: Lethargic, ill-appearing. Head: Right-sided cheek swelling; tender on palpation. Neck: trachea midline, no thyromegaly normal visual inspection Respiratory: Decreased breath sound at bilateral bases. Cardiovascular: RRR, no murmur, no edema Vessels: no JVD or carotid bruit Chest: normal inspection of chest Abdomen: distended; non-tender. Musculoskeletal: no cyanosis or clubbing, extremities motor strength 3/5. 2+ pitting edema present. Skin: no rashes, warm and dry normal turgor Neurologic: non-focal. Psychiatric: responds to voice; follows commands intermittently. : deferred Results & Data Results & Data ([facility]) Vital Signs (Past 12 Hours) Vital Signs Temp Pulse Pulse Resp BP BP Pulse Ox 04/20/22 08:29 04/20/22 08:23 89 91/59 L 04/20/22 07:14 36.4 C L 90 19 103/69 93 04/20/22 04:03 36.4 C L 89 20 94/65 L 93 04/19/22 23:30 89 O2 Del Method O2 Flow Rate 04/20/22 08:29 Nasal Cannula 3 04/20/22 08:23 04/20/22 07:14 Nasal Cannula 3 04/20/22 04:03 Nasal Cannula 3 04/19/22 23:30 Laboratory Results Laboratory Results WBC 3.79 K/ul (4.8-10.8) L 04/20/22 05:39 RBC 3.42 M/uL (3.93-5.22) L 04/20/22 05:39 Hgb 10.6 g/dl (12.0-16.0) L 04/20/22 05:39 Hct 34.0 % (34.1-44.9) L 04/20/22 05:39 MCV 99.4 fL (80.0-100.0) 04/20/22 05:39 MCH 31.0 pg (25.0-34.0) 04/20/22 05:39 MCHC 31.2 g/dL (32.0-36.0) L 04/20/22 05:39 RDW Std Deviation 72.4 fL (36.4-46.3) H 04/20/22 05:39 RDW Coeff of Carlita 20.7 % (11.5-14.5) H 04/20/22 05:39 Plt Count 51 K/uL (130-400) L 04/20/22 05:39 MPV 11.3 fL (9.4-12.3) 04/20/22 05:39 Immature Gran % (Auto) 8.4 % 04/20/22 05:39 Neut % (Auto) 85.8 % 04/20/22 05:39 Lymph % (Auto) 3.4 % 04/20/22 05:39 Mcminn % (Auto) 0.3 % 04/20/22 05:39 Eos % (Auto) 0.0 % 04/20/22 05:39 Baso % (Auto) 2.1 % 04/20/22 05:39 Neut # (Auto) 3.25 K/uL (1.4-6.5) 04/20/22 05:39 Lymph # (Auto) 0.13 K/uL (1.2-3.4) L 04/20/22 05:39 Mcminn # (Auto) 0.01 K/uL (0.24-0.82) L 04/20/22 05:39 Eos # (Auto) 0.00 K/uL (0-0.50) 04/20/22 05:39 Baso # (Auto) 0.08 K/uL (0-0.2) 04/20/22 05:39 Immature Gran # (Auto) 0.32 K/uL (0.00-0.02) H 04/20/22 05:39 Absolute Nucleated RBC 0.03 K/uL (0-0) H 04/19/22 15:19 Nucleated RBC % (auto) 0.4 % 04/19/22 15:19 Neutrophils % (Manual) 98 % 04/19/22 15:19 Lymphocytes % (Manual) 2 % 04/19/22 15:19 Neutrophils # (Manual) 7.40 K/uL (1.4-6.5) H 04/19/22 15:19 Lymphocytes # (Manual) 0.15 K/uL (1.2-3.4) L 04/19/22 15:19 Dohle Bodies 1+ 04/19/22 15:19 Anisocytosis Present 04/20/22 05:39 PT 12.7 Seconds (9.0-12.0) H 04/19/22 15:19 INR 1.2 (0.9-1.1) H 04/19/22 15:19 APTT 31.5 Seconds (21.0-31.0) H 04/19/22 15:19 PTT Ratio 1.1 04/19/22 15:19 VBG pH 7.43 (7.36-7.41) H 04/19/22 17:00 VBG pCO2 62 mmHg (38-50) H 04/19/22 17:00 VBG pO2 31 mmHg 04/19/22 17:00 VBG HCO3 41 mmol/L 04/19/22 17:00 VBG O2 Saturation < 60.0 % 04/19/22 17:00 VBG Base Excess 13.9 mEq/L 04/19/22 17:00 Sodium 155 mmol/L (136-145) H 04/20/22 12:58 Potassium 3.8 mmol/L (3.5-5.1) 04/20/22 12:58 Chloride 115 mmol/L (98-107) H 04/20/22 12:58 Carbon Dioxide 38 mmol/L (21-32) H 04/20/22 12:58 Anion Gap 2 (3-11) L 04/20/22 12:58 BUN 44 mg/dl (6-23) H 04/20/22 12:58 Creatinine 0.48 mg/dl (0.6-1.2) L 04/20/22 12:58 Est Cr Clr Drug Dosing 119.0 ml/min 04/20/22 12:58 Est GFR ( Amer) 110.4 ml/min 04/20/22 12:58 Est GFR (Non-Af Amer) 95.3 ml/min 04/20/22 12:58 BUN/Creatinine Ratio 91.7 (10-20) H 04/20/22 12:58 Glucose 200 mg/dl (70-99(Fasting)) H 04/20/22 12:58 POC Glucose 187 mg/dl (70-99) H 04/20/22 11:36 Estimat Average Glucose 117 mg/dl 04/20/22 05:39 Hemoglobin A1c 5.7 % (4.5-5.6) H 04/20/22 05:39 Lactate 1.3 mmol/L (0.4-2.0) 04/20/22 05:39 Uric Acid 4.2 mg/dl (2.6-7.2) 04/19/22 21:24 Calcium 8.7 mg/dl (8.5-10.1) 04/20/22 12:58 Phosphorus 2.1 mg/dl (2.5-4.9) L 04/20/22 05:39 Magnesium 2.4 mg/dl (1.7-2.4) 04/20/22 05:39 Total Bilirubin 4.3 mg/dl (0.2-1.0) H 04/20/22 05:39 Direct Bilirubin 2.7 mg/dl (0-0.2) H 04/19/22 15:19 AST 21 U/L (13-39) 04/20/22 05:39 ALT 23 U/L (7-52) 04/20/22 05:39 Alkaline Phosphatase 55 U/L (34-104) 04/20/22 05:39 Troponin I High Sens 102.3 pg/ml (0-14) H* 04/19/22 21:24 Total Protein 4.8 gm/dl (6.0-8.3) L 04/20/22 05:39 Albumin 2.5 gm/dl (3.4-5.0) L 04/20/22 05:39 Globulin 2.3 gm/dl (2.5-4.0) L 04/20/22 05:39 Albumin/Globulin Ratio 1.1 (0.9-2) 04/20/22 05:39 Procalcitonin 0.18 ng/ml (0-0.5) 04/19/22 17:00 TSH 1.501 uIu/ml (0.300-4.500) 04/19/22 15:19 Urine Color [place] 04/19/22 18:14 Urine Appearance Turbid (Clear) A 04/19/22 18:14 Urine pH 5.5 (4.5-7.5) 04/19/22 18:14 Ur Specific [place] 1.023 (1.000-1.030) 04/19/22 18:14 Urine Protein 2+ (Negative) H 04/19/22 18:14 Urine Glucose (UA) Trace (Negative) H 04/19/22 18:14 Urine Ketones Negative (Negative) 04/19/22 18:14 Urine Blood 3+ (Negative) H 04/19/22 18:14 Urine Nitrite Positive (Negative) A 04/19/22 18:14 Urine Bilirubin 1+ (Negative) H 04/19/22 18:14 Urine Urobilinogen Positive (Negative) H 04/19/22 18:14 Ur Leukocyte Esterase 3+ (Negative) H 04/19/22 18:14 Urine WBC (Auto) >30 /hpf (0-5) H 04/19/22 18:14 Urine RBC (Auto) >30 /hpf (0-4) H 04/19/22 18:14 U Hyaline Cast (Auto) 1-5 /lpf (0-5) 04/19/22 18:14 U Epithel Cells (Auto) 10-20 /lpf (0-5) H 04/19/22 18:14 Urine Bacteria (Auto) 4+ (Negative) H 04/19/22 18:14 IgG 613.2 mg/dl (635-1741) L 04/20/22 12:58 IgA 444.5 mg/dl (70-400) H 04/20/22 12:58 IgM 63.8 mg/dl (45-281) 04/20/22 12:58 SARS-CoV-2, RNA, NAAT NEGATIVE (NEGATIVE) 04/19/22 17:[address] 04/19/22 14:50 CT head/brain wo con CLINICAL HISTORY: confusion Technique: Contiguous axial CT images of the head were acquired from the base of the skull to the vertex without intravenous contrast administration. Images were viewed in brain, subdural and bone windows. Automated dose lowering techniques and/or adjustment according to patient size were utilized for this exam. Comparison: Comparison is made to CT head 04/08/2022 Findings: Areas of decreased attenuation are present in the periventricular and subcortical white matter bilaterally consistent with small vessel ischemic disease. Generalized cerebral atrophy with commensurate enlargement of the ventricles, sulci, and cisterns is also present. There is no acute intracranial hemorrhage or evidence of acute territorial infarction. No shift of the midline structures, mass effect, or extra-axial abnormalities are shown. Atherosclerotic calcifications are present in the intracranial segments of the internal carotid arteries. Left sphenoid and ethmoid sinus opacification is noted. The orbits appear normal. There are no acute fractures of the calvaria or scalp swelling. Impression: No acute intracranial hemorrhage, no evidence of acute territorial infarction or other acute intracranial disease process. ACT 112: Negative or not required by law. Electronically signed by: José Neil M.D. 04/19/2022 4:[address]ck CT 04/19/22 14:53 CT soft tissue neck w con HISTORY: R facial swelling TECHNIQUE: Multiaxial CT images of the neck were performed following the intravenous administration of contrast. Sagittal and coronal reformations were performed at the workstation by the radiologist. COMPARISON STUDY: Neck CTA 04/05/2022. FINDINGS: There is again noted right-sided lymphadenopathy. This has improved in the interval. Dominant lymph node currently measures 2.0 x 1.0 cm this producing measured 2.4 x 2.0 cm. Decrease in size in the lymphadenopathy/soft tissue mass adjacent to the angle of the right hemimandible. This currently measures 1.9 cm, previously measuring 3.1 cm. Moderate right pleural effusion is again noted. The mastoid air cells are clear. Near complete opacification the left posterior ethmoid air cells and left sphenoid sinus. This is new from the prior study. Right mandibular condyle deformity, unchanged. No suspicious lytic or blastic osseous lesions. Normal thyroid gland. Partially visualized left-sided pacemaker. Mild mucosal thickening throughout the majority of the hypopharynx most pronounced at the right palatine tonsil. This is similar to the prior study. The epiglottis is normal in thickness. No prevertebral fluid collections identified. Enlargement and increased density with adjacent fat stranding within the right parotid gland. This is consistent with a right-sided parotitis. This is new from the prior study. There is subcutaneous edema within the right lateral and anterior neck. Small foci of gas within the neck appear to correspond to intravenous contrast and may be due to prior line insertion. 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 Moderate calcified plaque within the bilateral carotid bifurcations without significant stenosis. No loculated fluid collections to suggest an abscess. IMPRESSION: 1. Interval development of a right-sided parotitis. 2. The right-sided lymphadenopathy has slightly improved. 3. Mucosal thickening throughout the hypopharynx most pronounced at the right palatine tonsil persists. No significant airway compromise at this time. 4. No change in the moderate right pleural effusion. ACT 112: Negative or not required by law. Electronically signed by: German Lemon M.D. 04/19/2022 4:43 PM Abdomen/Pelvis CT 04/19/22 21:15 CT SCAN OF THE ABDOMEN AND PELVIS WITHOUT IV CONTRAST CLINICAL HISTORY: Lymphoma. COMPARISON STUDY: Abdominal CT dated 04/06/2022. TECHNIQUE: CT scan of the abdomen and pelvis is performed from the lung bases to the proximal femora. Images are reviewed in the axial, sagittal, and coronal planes. IV contrast was not administered for this examination as per the referring clinician. Note that the examination was performed in significantly suboptimal fashion without oral or IV contrast. There is also motion artifact, as well as streak artifact from the arms which could not be elevated of the abdomen. A dose lowering technique was utilized adhering to the principles of ALARA. CT DOSE: 1702.02 mGy.cm FINDINGS: Lung bases: The heart is enlarged noting a small pericardial effusion. The coronary arteries are densely calcified. Pacemaker leads are in place. There are [id number] pleural effusions with dense bibasilar consolidation. Liver: The unenhanced liver is normal in size, contour, and attenuation. There is no intrahepatic biliary ductal dilatation. A 12 mm cyst is noted in the left lobe. Gallbladder: Vicarious excreted contrast. The gallbladder. Spleen: Normal in size and attenuation, measuring 10.2 cm in length. There is a calcified splenic granuloma. Pancreas: Trace fluid is seen adjacent to pancreatic tail. The unenhanced pancreas is moderately atrophic and grossly unremarkable. Adrenal glands: Unremarkable. Kidneys: The unenhanced kidneys are normal in size and without hydronephrosis. Excreted IV contrast is present within the renal collecting systems. This degrades assessment for nephrolithiasis. There is no evidence of contour deforming renal mass lesion. Abdominal vasculature: The abdominal aorta is normal in course and caliber noting advanced atherosclerotic calcification. Bowel: There is no bowel obstruction. Residual enteric contrast is noted in the colon. There is mild colonic diverticulosis without CT evidence of acute diverticulitis. The appendix is well-visualized and normal. Peritoneum: There is no intraperitoneal free air or abdominal ascites. There is mesenteric edema. There is laxity of the ventral wall the pelvis with diastases of the rectus musculature and protrusion of abdominal contents. There is a 1.6 cm focus of irregular nodularity within the pelvic mesentery on image #[id number]. A 1.4 cm irregular nodule seen on image #[id number]. These have significantly decreased in size as compared to 04/06/2022. Lymphadenopathy: None. Pelvic viscera: The bladder is decompressed around a Catalan catheter and could not be assessed. There is intraluminal gas, as well as excreted IV contrast within the bladder. The uterus is surgically absent. No adnexal lesion is seen. Nodularity along the left aspect of the vaginal cuff has almost completely resolved. Skeletal structures: The skeletal structures are osteopenic. There is moderate lumbosacral spondylosis. No lytic or blastic lesions are seen. Soft tissues: There is mild body wall edema. IMPRESSION: 1. Significantly suboptimal examination bilateral and IV contrast. There is also streak and motion artifact. 2. Mesenteric nodules seen on 04/06/2022 have significantly decreased in size from previous. Nodularity along the left vaginal cuff has almost completely resolved. 3. There are small to moderate pleural effusions with dense bibasilar consolidation. This has significantly increased as compared to 04/06/2022. Clinical correlation will be required. 4. Trace nonspecific fluid is seen adjacent to the pancreatic tail. Correlate with serum lipase levels. 5. Additional findings as above. ACT 112: Negative or not required by law. Electronically signed by: Burke Hernandez M.D. 04/20/2022 7:38 AM Chest X-Ray 04/20/22 09:31 XR chest 1V portable HISTORY: Evaluate PICC PLACEMENT COMPARISON: Chest 04/19/2022. FINDINGS: Interval placement of a right PICC which appears to terminate at the distal SVC/cavoatrial junction. No pneumothorax. Left-sided pacemaker. Pulmonary edema, cardiomegaly, moderate bilateral pleural fusions, and bibasilar densities persist. IMPRESSION: 1. The right PICC appears to terminate at the distal SVC/cavoatrial junction. 2. Redemonstration of the pulmonary edema, bilateral pleural effusions, and bibasilar densities. ACT 112: Negative or not required by law. Electronically signed by: German Lemon M.D. 04/20/2022 10:15 AM
[2022-04-20] MEDS: INSULIN ASPART PER UNIT SC SCH ×3 (11:56→18:07)
--- NOTE | 2022-04-20 12:00 | Electrocardiogram Report ---
Test Reason : Blood Pressure : / mmHG Vent. Rate : 089 BPM Atrial Rate : 500 BPM P-R Int : 000 ms QRS Dur : 146 ms QT Int : 424 ms P-R-T Axes : 005 138 076 degrees QTc Int : 515 ms Ventricular-paced rhythm Underlying atrial fibrillation Abnormal ECG When compared with ECG of 19-APR-2022 14:00, No significant change was found Confirmed by Víctor Hawkins ([id number]) on 04/20/2022 11:59:25 AM Referred By: REFERRED SELF Confirmed By:Víctor Hawkins
[2022-04-20] MEDS ORDERED: VANCOMYCIN CONSULT ACTIVE PRN (12:01)
[2022-04-20] MEDS: metroNIDAZOLE 500 MG/100 ML BAG IV SCH ×2 (13:11→20:50)
[2022-04-20] MEDS ORDERED: VANCOMYCIN HCL 2,500 MG in SODIUM CHLORIDE 0.9% 500 ML IV ONE (13:15)
[2022-04-20 13:36] LABS: Immunoglobulin A 444.5 mg/dl (70-400); Immunoglobulin G 613.2 mg/dl (635-1741); Immunoglobulin M 63.8 mg/dl (45-281)
[2022-04-20 13:37] LABS: BUN Creatinine Ratio 91.7 (10-20); Calcium 8.7 mg/dl (8.5-10.1); Est GFR (African American) 110.4 ml/min; Est GFR (Non-African American) 95.3 ml/min; Potassium 3.8 mmol/L (3.5-5.1)
--- NOTE | 2022-04-20 13:37 | Pharmacy Report ---
Pharmacy PK ABX Note - Date of Service April 20, 2022 - Assessment and Plan Assessment 76 year old F receiving IV Vancomycin, cefepime, metronidazole for treatment of parotitis. Pertinent microbiologic data includes: urine culture growing gram negative bacilli, blood cultures pending. Dr. Cali would like to use all three antibiotics at this time, as patient is immunocompromised on chemo and d/t facial swelling. Plan Vancomycin * Loading dose: 2500 mg IV x 1 * Maintenance dose: 1250 mg IV every 12 hours * Regimen is predicted to achieve target AUC/BLAZE of 400-600 mg/L.hr * Random level ordered for: 04/22/22 Pharmacy has transitioned to AUC monitoring for vancomycin. AUC/BLAZE is the preferred PK/PD target and is associated with decreased risk of nephrotoxicity compared to traditional trough targets. Cefepime 2g IV Q12H Metronidazole 500mg IV Q8H Pharmacy will continue to follow and will adjust dose/frequency as necessary. Thank you.
[2022-04-20 15:43] LABS: A calco-baum cmplx NotReported Not Detected (NotDetected); Bact fragilis Not Reported Not Detected (NotDetected); C auris Not Reported Not Detected (NotDetected); Calbicans Not Reported Not Detected (NotDetected); Candida glabrata Not Reported Not Detected (NotDetected); Candida krusei Not Reported Not Detected (NotDetected); Cneoformans/gatti Not Reported Not Detected (NotDetected); Cparapsilosis Not Reported Not Detected (NotDetected); Ctropicalis Not Reported Not Detected (NotDetected); E cloacae compx Not Reported Not Detected (NotDetected); Efaecalis Not Reported Not Detected (NotDetected); Efaecium Not Reported Not Detected (NotDetected); Enterobacterales Not Reported Not Detected (NotDetected); Escherichia coli Not Reported Not Detected (NotDetected); H influenzae Not Reported Not Detected (NotDetected); K aerogenes Not Reported Not Detected (NotDetected); Koxytoca Not Reported Not Detected (NotDetected); Kpneumoniae grp Not Reported Not Detected (NotDetected); Lmonocyt Not Reported Not Detected (NotDetected); N meningitidis Not Reported Not Detected (NotDetected); P aeruginosa Not Reported Not Detected (NotDetected); Proteus spp Not Reported Not Detected (NotDetected); Salmonella spp Not Reported Not Detected (NotDetected); Smarcescens Not Reported Not Detected (NotDetected); Staph lugdunensis Not Reported Not Detected (NotDetected); Staph spp. Not Reported DETECTED (NotDetected); Staphaureus Not Reported DETECTED (NotDetected); Staphepi Not Reported Not Detected (NotDetected); Staphylococcus spp. DETECTED (NotDetected); Stenmaltophilia Not Reported Not Detected (NotDetected); Strep agal(GrpB) Not Reported Not Detected (NotDetected); Strep pneum Not Reported Not Detected (NotDetected); Strep pyog (GrpA) Not Reported Not Detected (NotDetected); Strep spp Not Reported Not Detected (NotDetected)
[2022-04-20 15:48] LABS: mecAC+MREJ Resistant Gene MRSA DETECTED (NotDetected)
--- NOTE | 2022-04-20 17:11 | Surgery Consultation ---
Date of Consultation April 20, 2022 Assessment & Plan (1) DLBCL (diffuse large B cell lymphoma): Large sacral ulcer however not a candidate for surgical debridement at this point due to multiple medical issues. Holding apixaban would be ideal for bedside versus debridement in the OR in the future. History of Present Illness Attending Physician: Kiran Cali MD History of Present Illness 76-year-old female with lymphoma and out of the hospital over the past month readmitted for lethargy yesterday just 1 day after discharge to [facility]. She is on apixaban for A. fib. We were asked to see for sacral ulcer. No family is at bedside. History not obtainable from the patient. Allergies Allergy/AdvReac Type Severity Reaction Status Date / Time No Known Allergies Allergy Verified 04/19/22 17:29 Home Medications Medication Instructions Recorded Confirmed Type multivitamin (Multiple Vitamins 1 tab PO QAM 10/15/18 04/19/22 History tablet) apixaban 5 mg tablet 5 mg PO BID 01/29/19 04/19/22 History losartan 25 mg tablet 25 mg PO DAILY 03/26/22 04/19/22 History melatonin 3 mg tablet 3 mg PO HS 03/26/22 04/19/22 History cyanocobalamin (vitamin B-12) 1,000 mcg PO DAILY #30 caps 04/18/22 04/19/22 Rx 1,000 mcg capsule lidocaine 5 % topical patch 1 patch transdermal QAM 30 days 04/18/22 04/19/22 Rx #30 ea metoprolol succinate 25 mg 25 mg PO DAILY 30 days #30 tabs 04/18/22 04/19/22 Rx tablet,extended release 24 hr nystatin 100,000 unit/gram topical 1 applic EXT BID 10 days #50 grams 04/18/22 04/19/22 Rx powder (Nystop) paroxetine HCl 10 mg tablet 10 mg PO DAILY 30 days #30 tabs 04/18/22 04/19/22 Rx docusate sodium 100 mg capsule 100 mg PO BID 04/19/22 04/19/22 History Patient History Medical History Atrial fibrillation on eliquis follows with [facility] Breast cancer 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 (01/27/15) "Abnormal left breast mammogram Status post ultrasound-guided core needle biopsy 01/25/2015 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, progesterone receptor negative, HER-2/yury negative Status post lumpectomy and sentinel lymph node biopsy 03/03/2015 Pathologic stage [id number] Status post reexcision 03/23/2015 due to positive margin no residual tumor Status post completion of radiation therapy 06/10/2015 received 6120 cGy " On 07/09/15 10:05 Siria Dunham wrote "Abnormal left breast mammogram Status post ultrasound-guided core needle biopsy 01/25/2015 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, progesterone receptor negative, HER-2/yury negative Status post lumpectomy and sentinel lymph node biopsy 03/03/2015 Pathologic stage [id number] Status post reexcision 03/23/2015 due to positive margin no residual tumor " On 07/09/15 10:05 Siria Dunham wrote "Abnormal left breast mammogram Status post ultrasound-guided core needle biopsy 01/25/2015 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, progesterone receptor negative, HER-2/yury negative Status post lumpectomy and sentinel lymph node biopsy 03/03/2015 Pathologic stage [id number] Status post reexcision 03/23/2015 due to positive margin no residual tumor " On 04/07/15 12:14 Siria Dunham wrote "Abnormal left breast mammogram Status post ultrasound-guided core needle biopsy 01/25/2015 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, progesterone receptor negative, HER-2/yury negative Status post lumpectomy and sentinel lymph node biopsy 03/03/2015 Pathologic stage [id number] Status post reexcision 03/23/2015 due to positive margin no residual tumor" On 04/07/15 12:12 Siria Dunham wrote "Abnormal left breast mammogram Status post ultrasound-guided core needle biopsy 01/25/2015 Invasive ductal carcinoma Jana receptor negative, progesterone receptor negative, HER-2/yury negative Status post lumpectomy and sentinel lymph node biopsy 03/03/2015 Pathologic stage [id number] Status post reexcision 03/23/2015 due to positive margin no residual tumor" Chronic hyponatremia Diffuse large B-cell lymphoma HTN (hypertension) Morbid obesity with BMI of 40.0-44.9, adult On anticoagulant therapy eliquis daily Surgical History History of breast surgery 03/2015 reexcision of lump of left breast History of colonoscopy History of lumpectomy of left breast 02/2015 with sentinel lymph node biopsy History of needle biopsy 01/2018 left breast--malignant History of tooth extraction History of total hysterectomy with bilateral salpingo-oophorectomy (BSO) History of wisdom tooth extraction Family History Mother Family hx of colon cancer Other No family history of adverse response to anesthesia No pertinent family history Social History Smoking Status: Unknown if ever smoked Second Hand Exposure: Yes ( smoked); Hx Alcohol Use: No Hx Substance Use: No Preferred Language: [place] Communication Ability: Effective Credit Underwriter Required: No Beliefs That Will Affect Care: [employer] Current Living Situation: Spouse Feels Safe at Home: Yes Assistive Devices: None Review of Systems Review of Systems: Unobtainable due to cognitive status Physical Exam Constitutional: + ill appearing, + obese and + frail appearing Respiratory: + uses accessory muscles Cardiovascular: Rate/Rhythm: regular rate Gastrointestinal (Abdomen): Inspection/Auscultation: abdomen not distended Percussion/Palpation: abdomen soft; abdomen nontender Skin: wound images reviewed Results & Data ([facility]) Vital Signs (Past 12 Hours) Vital Signs Temp Pulse Pulse Resp BP BP Pulse Ox 04/20/22 16:22 36.6 C 91 H 20 87/59 L 95 04/20/22 14:09 90 87/57 L 04/20/22 11:26 36.2 C L 90 20 96/66 L 94 04/20/22 08:29 04/20/22 08:23 89 91/59 L 04/20/22 07:14 36.4 C L 90 19 103/69 93 O2 Del Method O2 Flow Rate 04/20/22 16:22 Nasal Cannula 3 04/20/22 14:09 04/20/22 11:26 Nasal Cannula 3 11/17/22 08:29 Nasal Cannula 3 04/20/22 08:23 04/20/22 07:14 Nasal Cannula 3 PG Care Time/CCT Total # of Minutes Spent Total Time Spent with Patient: Total time spent is greater than 50% in coordination of care (as documented) at patient's floor/unit and/or counseling patient: Coding Level of Care Code 83091 Initial Inpt Care Lvl 1 Diagnoses DLBCL (diffuse large B cell lymphoma) C83.30
[2022-04-20 17:14] LABS: Calcium 8.5 mg/dl (8.5-10.1); Creatinine Clr Calc Pharmacy 114.2 ml/min; Potassium 3.7 mmol/L (3.5-5.1)
--- NOTE | 2022-04-20 17:22 | ENT Consultation ---
Date of Consultation April 20, 2022 Assessment & Plan (1) Parotitis: She has acute parotitis with no sign of abscess formation. Or surgical parotitis. The treatment is antibiotics and IV hydration. Must watch for further infection/abscess formation. Will then need incision and drainage. (2) Diffuse large B-cell lymphoma: (3) DLBCL (diffuse large B cell lymphoma): History of Present Illness Reason for Consultation: Right facial swelling Attending Physician: Kiran Cali MD History of Present Illness 76-year-old lady with multiple problems including lymphoma developed right facial swelling. Allergies Allergy/AdvReac Type Severity Reaction Status Date / Time No Known Allergies Allergy Verified 04/19/22 17:29 Home Medications Medication Instructions Recorded Confirmed Type multivitamin (Multiple Vitamins 1 tab PO QAM 10/15/18 04/19/22 History tablet) apixaban 5 mg tablet 5 mg PO BID 01/29/19 04/19/22 History losartan 25 mg tablet 25 mg PO DAILY 03/26/22 04/19/22 History melatonin 3 mg tablet 3 mg PO HS 03/26/22 04/19/22 History cyanocobalamin (vitamin B-12) 1,000 mcg PO DAILY #30 caps 04/18/22 04/19/22 Rx 1,000 mcg capsule lidocaine 5 % topical patch 1 patch transdermal QAM 30 days 04/18/22 04/19/22 Rx #30 ea metoprolol succinate 25 mg 25 mg PO DAILY 30 days #30 tabs 04/18/22 04/19/22 Rx tablet,extended release 24 hr nystatin 100,000 unit/gram topical 1 applic EXT BID 10 days #50 grams 04/18/22 04/19/22 Rx powder (Nystop) paroxetine HCl 10 mg tablet 10 mg PO DAILY 30 days #30 tabs 04/18/22 04/19/22 Rx docusate sodium 100 mg capsule 100 mg PO BID 04/19/22 04/19/22 History Patient History Medical History Atrial fibrillation on eliquis follows with [facility] Breast cancer 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 (01/27/15) "Abnormal left breast mammogram Status post ultrasound-guided core needle biopsy 01/25/2015 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, progesterone receptor negative, HER-2/yury negative Status post lumpectomy and sentinel lymph node biopsy 03/03/2015 Pathologic stage [id number] Status post reexcision 03/23/2015 due to positive margin no residual tumor Status post completion of radiation therapy 06/10/2015 received 6120 cGy " On 07/09/15 10:05 Siria Dunham wrote "Abnormal left breast mammogram Status post ultrasound-guided core needle biopsy 01/25/2015 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, progesterone receptor negative, HER-2/yury negative Status post lumpectomy and sentinel lymph node biopsy 03/03/2015 Pathologic stage [id number] Status post reexcision 03/23/2015 due to positive margin no residual tumor " On 07/09/15 10:05 Siria Dunham wrote "Abnormal left breast mammogram Status post ultrasound-guided core needle biopsy 01/25/2015 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, progesterone receptor negative, HER-2/yury negative Status post lumpectomy and sentinel lymph node biopsy 03/03/2015 Pathologic stage [id number] Status post reexcision 03/23/2015 due to positive margin no residual tumor " On 04/07/15 12:14 Siria Dunham wrote "Abnormal left breast mammogram Status post ultrasound-guided core needle biopsy 01/25/2015 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, progesterone receptor negative, HER-2/yury negative Status post lumpectomy and sentinel lymph node biopsy 03/03/2015 Pathologic stage [id number] Status post reexcision 03/23/2015 due to positive margin no residual tumor" On 04/07/15 12:12 Siria Dunham wrote "Abnormal left breast mammogram Status post ultrasound-guided core needle biopsy 01/25/2015 Invasive ductal carcinoma Jana receptor negative, progesterone receptor negative, HER-2/yury negative Status post lumpectomy and sentinel lymph node biopsy 03/03/2015 Pathologic stage [id number] Status post reexcision 03/23/2015 due to positive margin no residual tumor" Chronic hyponatremia Diffuse large B-cell lymphoma HTN (hypertension) Morbid obesity with BMI of 40.0-44.9, adult On anticoagulant therapy eliquis daily Surgical History History of breast surgery 03/2015 reexcision of lump of left breast History of colonoscopy History of lumpectomy of left breast 02/2015 with sentinel lymph node biopsy History of needle biopsy 01/2018 left breast--malignant History of tooth extraction History of total hysterectomy with bilateral salpingo-oophorectomy (BSO) History of wisdom tooth extraction Family History Mother Family hx of colon cancer Other No family history of adverse response to anesthesia No pertinent family history Social History Smoking Status: Unknown if ever smoked Second Hand Exposure: Yes ( smoked); Hx Alcohol Use: No Hx Substance Use: No Preferred Language: American Communication Ability: Effective Medical Records Clerk Required: No Beliefs That Will Affect Care: [employer] Current Living Situation: Spouse Feels Safe at Home: Yes Assistive Devices: None Physical Exam Constitutional: + ill appearing and + altered mental status Eyes: PERRL, conjunctivae normal, anicteric sclerae ENMT: external ear and nose normal, oropharynx normal Neck: Very swollen right parotid gland and right face, no sign of abscess Results & Data ([facility]) Vital Signs (Past 12 Hours) Vital Signs Temp Pulse Pulse Resp BP BP Pulse Ox 04/20/22 16:22 36.6 C 91 H 20 87/59 L 95 04/20/22 14:09 90 87/57 L 04/20/22 11:26 36.2 C L 90 20 96/66 L 94 04/20/22 08:29 04/20/22 08:23 89 91/59 L 04/20/22 07:14 36.4 C L 90 19 103/69 93 O2 Del Method O2 Flow Rate 04/20/22 16:22 Nasal Cannula 3 04/20/22 14:09 04/20/22 11:26 Nasal Cannula 3 04/20/22 08:29 Nasal Cannula 3 04/20/22 08:23 04/20/22 07:14 Nasal Cannula 3
[2022-04-20] MEDS: CEFEPIME 2,000 MG in SYRINGE 0 ML IV SCH (21:16)
[2022-04-20 21:51] LABS: BUN Creatinine Ratio 70.7 (10-20); Calcium 8.4 mg/dl (8.5-10.1); Creatinine Clr Calc Pharmacy 98.5 ml/min; Est GFR (African American) 103.8 ml/min; Est GFR (Non-African American) 89.5 ml/min; Potassium 3.9 mmol/L (3.5-5.1)
[2022-04-20] MEDS: VANCOMYCIN HCL 1,250 MG in SODIUM CHLORIDE 0.9% 250 ML IV SCH (22:43)
[2022-04-21] MEDS: INSULIN ASPART PER UNIT SC SCH ×4 (00:46→18:17)
[2022-04-21] MEDS: DEXTROSE 5% 1,000 ML IV SCH ×4 (03:31→19:35)
[2022-04-21] MEDS: METOPROLOL TARTRATE 1 MG/ML VIAL IV SCH ×4 (03:49→20:56)
[2022-04-21] MEDS: metroNIDAZOLE 500 MG/100 ML BAG IV SCH ×3 (05:44→21:01)
--- NOTE | 2022-04-21 06:12 | Consultation ---
Date of Consultation April 20, 2022 Assessment & Plan (1) DLBCL (diffuse large B cell lymphoma): New diagnosis of diffuse large B-cell lymphoma primarily as adenopathy in the thoracic and cervical region. There are some mesenteric implants that may represent extension into the abdomen and some variable thrombocytopenia suggesting that there might be marrow involvement as well. This is an aggressive malignancy and can certainly be the cause of significant morbidity and even mortality but I think it was only a component of her initial and current decompensations much of which was/is also due to her atrial fibrillation and fluid balance that she is particularly notably with a pleural effusion that was cytologically negative. An acute parotitis is also contributing to her current decline. We were concerned to initiate prompt treatment during her last admission but also concerned with her performance status that full dose multiagent chemotherapy could cause more harm than good. We had chosen a more simple initial approach with cyclophosphamide and prednisone which she tolerated well. Note that she did receive Zarxio for 2 days following the cyclophosphamide and as discussed separately she has relatively adequate blood counts for the time being. While on first presentation the right facial swelling was concerning for rapid progression of her lymphoma, this seems rather an niflammatory parotitis. Certainly lymphoma cells can infiltrate almost any organ and cause enlargement but seeing that all other sites seem to be responding to treatment, the separate activity of the parotid gland especially the very rapid exchange trouble shooter a very short period of time is much more indicative of infection than lymphomatous infiltration. Indeed, the CT scans of the chest and abdomen suggest at least stable disease and in fact a response. CT of the chest in time may be helpful to document response there as well but overall it seems that our initial chemotherapy was successful in achieving initial goal of gradual cytoreduction. She would not be due for chemotherapy again for 2 more weeks at least and a necessary prelude to that will be stabilization of her overall physiologic status. For now the focus must be on restoring better electrolyte and fluid balance and as well on addressing what is presumed to be an infectious process in the parotid gland. In terms of overall prognosis, DLBCL usually responds well to treatment and a significant proportion of patients achieve complete remission with a significant proportion of those then remaining in remission for a fairly long period of time. Given the high treatability of this disorder I do not think in and of itself it constitutes a reason to be less than aggressive overall but we must take in her entire spectrum of medical issues for prognostication and certainly if from the cardiac, renal, and general debility standpoint there are reasons to be concerned over excessively aggressive care, appropriate palliative care discussion and discussion with other specialties in setting parameters of care is certainly worthwhile (2) Breast cancer: 2015 history of left-sided breast cancer treated with lumpectomy and radiation. While we had at first been concerned that her pathologic adenopathy might represent relapse of that, we do have a separate diagnosis as above. There does not seem to be any activity of the breast cancer at this time and other than perhaps some mild impact of the radiation on regional organs (far less in the modern era of exquisitely targeted radiation), this is probably not a factor in her current medical challenges (3) Pleural effusion: It is notable that the pleural effusion was cytologically negative and therefore may be more related to her cardiac dysfunction than it is to the lymphoma though certainly an indirect effect of the lymphoma on a pleural effusion cannot be discounted. By chest x-ray that does seem to have reaccumulated to a moderate degree and I would have to defer to the hospitalist team and cardiology and pulmonary as to if/when it would be worthwhile to drain it again for purposes of improved cardiopulmonary function (4) Parotitis: As discussed under the lymphoma heading, the very rapid increase in parotid size is very uncharacteristic of malignancies which should usually increase over weeks to months rather than days other than some highly aggressive processes. Her lymphoma should not be 1 that progresses so quickly and as above she is in fact responding in other areas so this is almost certainly a separate inflammatory and probably infectious process. She is not neutropenic but does have some at least moderate immunocompromise related to her recent Cytoxan and prednisone treatment and as well to the lymphoma itself. Immunoglobulin levels are mildly below normal but not severely depressed. If she seems to be responding to antibiotics would simply continue with those. Does not need myeloid growth factors unless/until she does develop sultana neutropenia and even then their impact outside of florid sepsis-like parameters is probably modest at best. If she seems to be having a sluggish response that could be also some consideration to a low-dose immunoglobulin infusion of approximately 200 mg/kg (5) Pancytopenia: Note the patient did have some thrombocytopenia on her previous admission raising the question as to whether there might be marrow infiltration and/or an ITP-like process related to her lymphoma. Thrombocytopenia actually ameliorated with some initial steroid suggesting that there was indeed a potential immune component. We plan a marrow aspiration and biopsy in time to further define the presence or absence of marrow involvement but that would not impact upon any decision making from an oncology standpoint at this time. Currently she again has a mild thrombocytopenia but this is as she tracks out from her chemotherapy and there certainly could be a component simply of chemotherapy-induced beth. Platelet counts of 50,000 or above are numerically adequate for any appropriate anticoagulation. Platelet counts above 25,000 can usually support prophylactic doses of anticoagulation or adjusted doses of therapeutic anticoagulation. Certainly bleeding can occur at any platelet count and should always be a part of shared decision making with regards to such treatment. She did receive 2 doses of Zarxio and actually has more than adequate neutrophils at this time so does not need to be approached as neutropenic fever though we will need to continue to monitor her neutrophils as she may not have yet reached full beth with that. The anemia is probably multifactorial but again double-digit hemoglobin levels are more than adequate. We should certainly monitor her pancytopenia but I do not see any role for g rowth factors at this time nor for transfusions. May need to make adjustments in any anticoagulant or antiplatelet medications if there is a further fall in the platelet counts going forward. Would check her CBC/diff at least every other day Plan Immediate focus should be on cardiopulmonary, renal, fluid balance, and infectious issues Overall lymphoma seems to be stable to responding, chest CT may help to further define that response. Do not see need for any immediate chemotherapy and probably will not be considering chemotherapy again for at least 2 weeks. Resume chemotherapy will be contingent to some extent on how well she is recovered from her other issues Should monitor CBC and differential every other day and may need anticoagulant or antiplatelet medication adjustments if the platelet counts fall to between 25 and 50,000 and even may need to suspend those medications if she is below 25,000. Might consider myeloid growth factors if her neutrophil count falls below 1000 but those usually only make an impact if there are florid septic like parameters. History of Present Illness Reason for Consultation: Patient with a previous history of left-sided breast cancer now diagnosed with nondouble hit diffuse large B-cell lymphoma diagnosed during an admission for paroxysmal atrial fibrillation and pleural effusions which may be a separate issue. Readmitted now with parotitis, signs of significant fluid depletion/hyponatremia, altered mental status and asked for comment from an oncology per Attending Physician: Kiran Cali MD History of Present Illness 76-year-old female who did have breast cancer in 2015 left-sided early-stage triple negative treated with lumpectomy and radiation. She was recently mated with paroxysmal atrial fibrillation and some cardiac decompensation/mild CHF associate with large pleural effusions which were incidentally cytology negative. During that work-up she was found to have cervical and thoracic adenopathy biopsy of which showed a diffuse large B-cell lymphoma. With concerns over the aggression of the lymphoma she did receive an initial treatment with a combination of steroids and a single dose of cyclophosphamide on 04/14/2022 at 750 mg per metered squared which at the time she tolerated well. She had been transferred to rehabilitation but developed progressive mental status and right facial swelling necessitating her readmission. See additional details in the hospitalist history and physical. Allergies Allergy/AdvReac Type Severity Reaction Status Date / Time No Known Allergies Allergy Verified 04/19/22 17:29 Home Medications Medication Instructions Recorded Confirmed Type multivitamin (Multiple Vitamins 1 tab PO QAM 10/15/18 04/19/22 History tablet) apixaban 5 mg tablet 5 mg PO BID 01/29/19 04/19/22 History losartan 25 mg tablet 25 mg PO DAILY 03/26/22 04/19/22 History melatonin 3 mg tablet 3 mg PO HS 03/26/22 04/19/22 History cyanocobalamin (vitamin B-12) 1,000 mcg PO DAILY #30 caps 04/18/22 04/19/22 Rx 1,000 mcg capsule lidocaine 5 % topical patch 1 patch transdermal QAM 30 days 04/18/22 04/19/22 Rx #30 ea metoprolol succinate 25 mg 25 mg PO DAILY 30 days #30 tabs 04/18/22 04/19/22 Rx tablet,extended release 24 hr nystatin 100,000 unit/gram topical 1 applic EXT BID 10 days #50 grams 04/18/22 04/19/22 Rx powder (Nystop) paroxetine HCl 10 mg tablet 10 mg PO DAILY 30 days #30 tabs 04/18/22 04/19/22 Rx docusate sodium 100 mg capsule 100 mg PO BID 04/19/22 04/19/22 History Patient History Medical History Atrial fibrillation on eliquis follows with [facility] Breast cancer 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 (01/27/15) "Abnormal left breast mammogram Status post ultrasound-guided core needle biopsy 01/25/2015 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, progesterone receptor negative, HER-2/yury negative Status post lumpectomy and sentinel lymph node biopsy 03/03/2015 Pathologic stage [id number] Status post reexcision 03/23/2015 due to positive margin no residual tumor Status post completion of radiation therapy 06/10/2015 received 6120 cGy " On 07/09/15 10:05 Siria Dunham wrote "Abnormal left breast mammogram Status post ultrasound-guided core needle biopsy 01/25/2015 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, progesterone receptor negative, HER-2/yury negative Status post lumpectomy and sentinel lymph node biopsy 03/03/2015 Pathologic stage [id number] Status post reexcision 03/23/2015 due to positive margin no residual tumor " On 07/09/15 10:05 Siria Dunham wrote "Abnormal left breast mammogram Status post ultrasound-guided core needle biopsy 01/25/2015 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, progesterone receptor negative, HER-2/yury negative Status post lumpectomy and sentinel lymph node biopsy 03/03/2015 Pathologic stage [id number] Status post reexcision 03/23/2015 due to positive margin no residual tumor " On 04/07/15 12:14 Siria Dunham wrote "Abnormal left breast mammogram Status post ultrasound-guided core needle biopsy 01/25/2015 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, progesterone receptor negative, HER-2/yury negative Status post lumpectomy and sentinel lymph node biopsy 03/03/2015 Pathologic stage [id number] Status post reexcision 03/23/2015 due to positive margin no residual tumor" On 04/07/15 12:12 Siria Dunham wrote "Abnormal left breast mammogram Status post ultrasound-guided core needle biopsy 01/25/2015 Invasive ductal carcinoma Jana receptor negative, progesterone receptor negative, HER-2/yury negative Status post lumpectomy and sentinel lymph node biopsy 03/03/2015 Pathologic stage [id number] Status post reexcision 03/23/2015 due to positive margin no residual tumor" Chronic hyponatremia Diffuse large B-cell lymphoma HTN (hypertension) Morbid obesity with BMI of 40.0-44.9, adult On anticoagulant therapy eliquis daily Surgical History History of breast surgery 03/2015 reexcision of lump of left breast History of colonoscopy History of lumpectomy of left breast 02/2015 with sentinel lymph node biopsy History of needle biopsy 01/2018 left breast--malignant History of tooth extraction History of total hysterectomy with bilateral salpingo-oophorectomy (BSO) History of wisdom tooth extraction Family History Mother Family hx of colon cancer Other No family history of adverse response to anesthesia No pertinent family history Social History Smoking Status: Unknown if ever smoked Second Hand Exposure: Yes ( smoked); Hx Alcohol Use: No Hx Substance Use: No Preferred Language: Northern Irish Communication Ability: Effective 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 To my first examination over the new hour she was quite lethargic and barely arousable but on follow-up examinations in the evening she was more alert, responding appropriately, though still quite sleepy. There are decreased breath sounds on the right side but she seems to be moving air without the use of accessory muscles or excessive tachypnea. Heart rhythm seems relatively regular and she is not tachycardic Abdomen is protuberant but seems nontender. There is significant swelling in the right face in the area of the parotid with some overlying erythema and tense skin. This is relatively diffuse preauricular. The previously palpable node in the right tonsillar area, however, seems less marked and I cannot easily distinguish pathologic axillary or supraclavicular adenopathy currently. Neurologically she seems somnolent but is moving all 4 extremities. She does seem diffusely weak Results & Data ([facility]) Vital Signs (Past 12 Hours) Vital Signs Temp Pulse Pulse Resp BP BP Pulse Ox 04/21/22 03:49 80 98/70 L 04/21/22 03:03 36.3 C L 89 20 123/78 93 04/20/22 23:31 89 04/20/22 23:05 36.4 C L 90 18 112/72 94 04/20/22 22:52 04/20/22 20:38 89 95/70 L 04/20/22 19:27 36.4 C L 89 18 95/70 L 93 O2 Del Method O2 Flow Rate 04/21/22 03:49 04/21/22 03:03 Nasal Cannula 3 04/20/22 23:31 04/20/22 23:05 Nasal Cannula 3 04/20/22 22:52 Nasal Cannula 3 04/20/22 20:38 04/20/22 19:27 Nasal Cannula 3 Laboratory Results Abnormal lab results 04/19/22 04/20/22 04/20/22 Range/Units 15:20 05:39 05:39 WBC 3.79 L (4.8-10.8) K/ul RBC 3.42 L (3.93-5.22) M/uL Hgb 10.6 L (12.0-16.0) g/dl Hct 34.0 L (34.1-44.9) % MCHC 31.2 L (32.0-36.0) g/dL RDW Std Deviation 72.4 H (36.4-46.3) fL RDW Coeff of Carlita 20.7 H (11.5-14.5) % Plt Count 51 L (130-400) K/uL Lymph # (Auto) 0.13 L (1.2-3.4) K/uL [place] # (Auto) 0.01 L (0.24-0.82) K/uL Immature Gran # (Auto) 0.32 H (0.00-0.02) K/uL Sodium 154 H (136-145) mmol/L Chloride 115 H (98-107) mmol/L Carbon Dioxide 37 H (21-32) mmol/L Anion Gap 2 L (3-11) BUN 48 H (6-23) mg/dl Creatinine 0.42 L (0.6-1.2) mg/dl BUN/Creatinine Ratio 114.3 H (10-20) Glucose 223 H (70-99(Fasting)) mg/dl POC Glucose (70-99) mg/dl Hemoglobin A1c (4.5-5.6) % Calcium (8.5-10.1) mg/dl Phosphorus 2.1 L (2.5-4.9) mg/dl Total Bilirubin 4.3 H (0.2-1.0) mg/dl Total Protein 4.8 L (6.0-8.3) gm/dl Albumin 2.5 L (3.4-5.0) gm/dl Globulin 2.3 L (2.5-4.0) gm/dl Nasal Screen MRSA (PCR) (Negative) IgG (635-1741) mg/dl IgA (70-400) mg/dl Staphylococcus sp PCR DETECTED A (NotDetected) Staph aureus (PCR) DETECTED A (NotDetected) mecA/C & MREJ Resist Gene MRSA DETECTED A* (NotDetected) 04/20/22 04/20/22 04/20/22 Range/Units 05:39 11:36 12:58 WBC (4.8-10.8) K/ul RBC (3.93-5.22) M/uL Hgb (12.0-16.0) g/dl Hct (34.1-44.9) % MCHC (32.0-36.0) g/dL RDW Std Deviation (36.4-46.3) fL RDW Coeff of Carlita (11.5-14.5) % Plt Count (130-400) K/uL Lymph # (Auto) (1.2-3.4) K/uL [place] # (Auto) (0.24-0.82) K/uL Immature Gran # (Auto) (0.00-0.02) K/uL Sodium (136-145) mmol/L Chloride (98-107) mmol/L Carbon Dioxide (21-32) mmol/L Anion Gap (3-11) BUN (6-23) mg/dl Creatinine (0.6-1.2) mg/dl BUN/Creatinine Ratio (10-20) Glucose (70-99(Fasting)) mg/dl POC Glucose 187 H (70-99) mg/dl Hemoglobin A1c 5.7 H (4.5-5.6) % Calcium (8.5-10.1) mg/dl Phosphorus (2.5-4.9) mg/dl Total Bilirubin (0.2-1.0) mg/dl Total Protein (6.0-8.3) gm/dl Albumin (3.4-5.0) gm/dl Globulin (2.5-4.0) gm/dl Nasal Screen MRSA (PCR) (Negative) IgG 613.2 L (635-1741) mg/dl IgA 444.5 H (70-400) mg/dl Staphylococcus sp PCR (NotDetected) Staph aureus (PCR) (NotDetected) mecA/C & MREJ Resist Gene (NotDetected) 04/20/22 04/20/22 04/20/22 Range/Units 12:58 16:13 16:33 WBC (4.8-10.8) K/ul RBC (3.93-5.22) M/uL Hgb (12.0-16.0) g/dl Hct (34.1-44.9) % MCHC (32.0-36.0) g/dL RDW Std Deviation (36.4-46.3) fL RDW Coeff of Carlita (11.5-14.5) % Plt Count (130-400) K/uL Lymph # (Auto) (1.2-3.4) K/uL [place] # (Auto) (0.24-0.82) K/uL Immature Gran # (Auto) (0.00-0.02) K/uL Sodium 155 H 154 H (136-145) mmol/L Chloride 115 H 115 H (98-107) mmol/L Carbon Dioxide 38 H 38 H (21-32) mmol/L Anion Gap 2 L 1 L (3-11) BUN 44 H 44 H (6-23) mg/dl Creatinine 0.48 L 0.50 L (0.6-1.2) mg/dl BUN/Creatinine Ratio 91.7 H 88.0 H (10-20) Glucose 200 H 209 H (70-99(Fasting)) mg/dl POC Glucose 199 H (70-99) mg/dl Hemoglobin A1c (4.5-5.6) % Calcium (8.5-10.1) mg/dl Phosphorus (2.5-4.9) mg/dl Total Bilirubin (0.2-1.0) mg/dl Total Protein (6.0-8.3) gm/dl Albumin (3.4-5.0) gm/dl Globulin (2.5-4.0) gm/dl Nasal Screen MRSA (PCR) (Negative) IgG (635-1741) mg/dl IgA (70-400) mg/dl Staphylococcus sp PCR (NotDetected) Staph aureus (PCR) (NotDetected) mecA/C & MREJ Resist Gene (NotDetected) 04/20/22 04/20/22 04/20/22 Range/Units 17:21 17:24 20:21 WBC (4.8-10.8) K/ul RBC (3.93-5.22) M/uL Hgb (12.0-16.0) g/dl Hct (34.1-44.9) % MCHC (32.0-36.0) g/dL RDW Std Deviation (36.4-46.3) fL RDW Coeff of Carlita (11.5-14.5) % Plt Count (130-400) K/uL Lymph # (Auto) (1.2-3.4) K/uL [place] # (Auto) (0.24-0.82) K/uL Immature Gran # (Auto) (0.00-0.02) K/uL Sodium (136-145) mmol/L Chloride (98-107) mmol/L Carbon Dioxide (21-32) mmol/L Anion Gap (3-11) BUN (6-23) mg/dl Creatinine (0.6-1.2) mg/dl BUN/Creatinine Ratio (10-20) Glucose (70-99(Fasting)) mg/dl POC Glucose 198 H 235 H (70-99) mg/dl Hemoglobin A1c (4.5-5.6) % Calcium (8.5-10.1) mg/dl Phosphorus (2.5-4.9) mg/dl Total Bilirubin (0.2-1.0) mg/dl Total Protein (6.0-8.3) gm/dl Albumin (3.4-5.0) gm/dl Globulin (2.5-4.0) gm/dl Nasal Screen MRSA (PCR) Positive A (Negative) IgG (635-1741) mg/dl IgA (70-400) mg/dl Staphylococcus sp PCR (NotDetected) Staph aureus (PCR) (NotDetected) mecA/C & MREJ Resist Gene (NotDetected) 04/20/22 04/21/22 04/21/22 Range/Units 21:20 00:38 05:37 WBC (4.8-10.8) K/ul RBC (3.93-5.22) M/uL Hgb (12.0-16.0) g/dl Hct (34.1-44.9) % MCHC (32.0-36.0) g/dL RDW Std Deviation (36.4-46.3) fL RDW Coeff of Carlita (11.5-14.5) % Plt Count (130-400) K/uL Lymph # (Auto) (1.2-3.4) K/uL [place] # (Auto) (0.24-0.82) K/uL Immature Gran # (Auto) (0.00-0.02) K/uL Sodium 149 H (136-145) mmol/L Chloride 110 H (98-107) mmol/L Carbon Dioxide 39 H (21-32) mmol/L Anion Gap 0 L (3-11) BUN 41 H (6-23) mg/dl Creatinine 0.58 L (0.6-1.2) mg/dl BUN/Creatinine Ratio 70.7 H (10-20) Glucose 260 H (70-99(Fasting)) mg/dl POC Glucose 287 H 255 H (70-99) mg/dl Hemoglobin A1c (4.5-5.6) % Calcium 8.4 L (8.5-10.1) mg/dl Phosphorus (2.5-4.9) mg/dl Total Bilirubin (0.2-1.0) mg/dl Total Protein (6.0-8.3) gm/dl Albumin (3.4-5.0) gm/dl Globulin (2.5-4.0) gm/dl Nasal Screen MRSA (PCR) (Negative) IgG (635-1741) mg/dl IgA (70-400) mg/dl Staphylococcus sp PCR (NotDetected) Staph aureus (PCR) (NotDetected) mecA/C & MREJ Resist Gene (NotDetected) Diagnostic Findings Chest X-Ray 04/19/22 14:41 XR chest 1V portable HISTORY: Altered mental status. COMPARISON: Chest 04/11/2022. FINDINGS: No pneumothorax. Perihilar interstitial/vascular thickening again noted consistent with mild pulmonary edema. Small to moderate bilateral pleural effusions and bibasilar densities persist. The heart remains enlarged. There is a left-sided pacemaker again noted. IMPRESSION: No significant change in the pulmonary edema, bilateral pleural effusions, and bibasilar densities. ACT 112: Negative or not required by law. Electronically signed by: German Lemon M.D. 04/19/2022 4:[address] 04/19/22 14:50 CT head/brain wo con CLINICAL HISTORY: confusion Technique: Contiguous axial CT images of the head were acquired from the base of the skull to the vertex without intravenous contrast administration. Images were viewed in brain, subdural and bone windows. Automated dose lowering techniques and/or adjustment according to patient size were utilized for this exam. Comparison: Comparison is made to CT head 04/08/2022 Findings: Areas of decreased attenuation are present in the periventricular and subcortical white matter bilaterally consistent with small vessel ischemic disease. Generalized cerebral atrophy with commensurate enlargement of the ventricles, sulci, and cisterns is also present. There is no acute intracranial hemorrhage or evidence of acute territorial infarction. No shift of the midline structures, mass effect, or extra-axial abnormalities are shown. Atherosclerotic calcifications are present in the intracranial segments of the internal carotid arteries. Left sphenoid and ethmoid sinus opacification is noted. The orbits appear n ormal. There are no acute fractures of the calvaria or scalp swelling. Impression: No acute intracranial hemorrhage, no evidence of acute territorial infarction or other acute intracranial disease process. ACT 112: Negative or not required by law. Electronically signed by: José Neil M.D. 04/19/2022 4:[address] Tissue Neck CT 04/19/22 14:53 CT soft tissue neck w con HISTORY: R facial swelling TECHNIQUE: Multiaxial CT images of the neck were performed following the intravenous administration of contrast. Sagittal and coronal reformations were p erformed at the workstation by the radiologist. COMPARISON STUDY: Neck CTA 04/05/2022. FINDINGS: There is again noted right-sided lymphadenopathy. This has improved in the interval. Dominant lymph node currently measures 2.0 x 1.0 cm this producing measured 2.4 x 2.0 cm. Decrease in size in the lymphadenopathy/soft tissue mass adjacent to the angle of the right hemimandible. This currently measures 1.9 cm, previously measuring 3.1 cm. Moderate right pleural effusion is again noted. The mastoid air cells are clear. Near complete opacification the left posterior ethmoid air cells and left sphenoid sinus. This is new from the prior study. Right mandibular condyle deformity, unchanged. No suspicious lytic or blastic osseous lesions. Normal thyroid gland. Partially visualized left-sided pac emaker. Mild mucosal thickening throughout the majority of the hypopharynx most pronounced at the right palatine tonsil. This is similar to the prior study. The epiglottis is normal in thickness. No prevertebral fluid collections identified. Enlargement and increased density with adjacent fat stranding within the right parotid gland. This is consistent with a right-sided parotitis. This is new from the prior study. There is subcutaneous edema within the right lateral and anterior neck. Small foci of gas within the neck appear to correspond to intravenous contrast and may be due to prior line insertion. 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 Moderate calcified plaque within the bilateral carotid bifurcations without significant stenosis. No loculated fluid collections to suggest an abscess. IMPRESSION: 1. Interval development of a right-sided parotitis. 2. The right-sided lymphadenopathy has slightly improved. 3. Mucosal thickening throughout the hypopharynx most pronounced at the right palatine tonsil persists. No significant airway compromise at this time. 4. No change in the moderate right pleural effusion. ACT 112: Negative or not required by law. Electronically signed by: German Lemon M.D. 04/19/2022 4:43 PM Abdomen/Pelvis CT 04/19/22 21:15 CT SCAN OF THE ABDOMEN AND PELVIS WITHOUT IV CONTRAST CLINICAL HISTORY: Lymphoma. COMPARISON STUDY: Abdominal CT dated 04/06/2022. TECHNIQUE: CT scan of the abdomen and pelvis is performed from the lung bases to the proximal femora. Images are reviewed in the axial, sagittal, and coronal planes. IV contrast was not administered for this examination as per the referring clinician. Note that the examination was performed in significantly suboptimal fashion without oral or IV contrast. There is also motion artifact, as well as streak artifact from the arms which could not be elevated of the abdomen. A dose lowering technique was utilized adhering to the principles of ALARA. CT DOSE: 1702.02 mGy.cm FINDINGS: Lung bases: The heart is enlarged noting a small pericardial effusion. The coronary arteries are densely calcified. Pacemaker leads are in place. There are [id number] pleural effusions with dense bibasilar consolidation. Liver: The unenhanced liver is normal in size, contour, and attenuation. There is no intrahepatic biliary ductal dilatation. A 12 mm cyst is noted in the left lobe. Gallbladder: Vicarious excreted contrast. The gallbladder. Spleen: Normal in size and attenuation, measuring 10.2 cm in length. There is a calcified splenic granuloma. Pancreas: Trace fluid is seen adjacent to pancreatic tail. The unenhanced pancreas is moderately atrophic and grossly unremarkable. Adrenal glands: Unremarkable. Kidneys: The unenhanced kidneys are normal in size and without hydronephrosis. Excreted IV contrast is present within the renal collecting systems. This degrades assessment for nephrolithiasis. There is no evidence of contour deforming renal mass lesion. Abdominal vasculature: The abdominal aorta is normal in course and caliber noting advanced atherosclerotic calcification. Bowel: There is no bowel obstruction. Residual enteric contrast is noted in the colon. There is mild colonic diverticulosis without CT evidence of acute diverticulitis. The appendix is well-visualized and normal. Peritoneum: There is no intraperitoneal free air or abdominal ascites. There is mesenteric edema. There is laxity of the ventral wall the pelvis with diastases of the rectus musculature and protrusion of abdominal contents. There is a 1.6 cm focus of irregular nodularity within the pelvic mesentery on image #[id number]. A 1.4 cm irregular nodule seen on image #339. These have significantly decreased in size as compared to 04/06/2022. Lymphadenopathy: None. Pelvic viscera: The bladder is decompressed around a Catalan catheter and could not be assessed. There is intraluminal gas, as well as excreted IV contrast within the bladder. The uterus is surgically absent. No adnexal lesion is seen. Nodularity along the left aspect of the vaginal cuff has almost completely resolved. Skeletal structures: The skeletal structures are osteopenic. There is moderate lumbosacral spondylosis. No lytic or blastic lesions are seen. Soft tissues: There is mild body wall edema. IMPRESSION: 1. Significantly suboptimal examination bilateral and IV contrast. There is also streak and motion artifact. 2. Mesenteric nodules seen on 04/06/2022 have significantly decreased in size from previous. Nodularity along the left vaginal cuff has almost completely resolved. 3. There are small to moderate pleural effusions with dense bibasilar consolidation. This has significantly increased as compared to 04/06/2022. Clinical correlation will be required. 4. Trace nonspecific fluid is seen adjacent to the pancreatic tail. Correlate with serum lipase levels. 5. Additional findings as above. ACT 112: Negative or not required by law. Electronically signed by: Burke Hernandez M.D. 04/20/2022 7:38 AM Chest X-Ray 04/20/22 09:31 XR chest 1V portable HISTORY: Evaluate PICC PLACEMENT COMPARISON: Chest 04/19/2022. FINDINGS: Interval placement of a right PICC which appears to terminate at the distal SVC/cavoatrial junction. No pneumothorax. Left-sided pacemaker. Pulmonary edema, cardiomegaly, moderate bilateral pleural fusions, and bibasilar densities persist. IMPRESSION: 1. The right PICC appears to terminate at the distal SVC/cavoatrial junction. 2. Redemonstration of the pulmonary edema, bilateral pleural effusions, and bibasilar densities. ACT 112: Negative or not required by law. Electronically signed by: German Lemon M.D. 04/20/2022 10:15 AM PG Care Time/CCT Total # of Minutes Spent Total Time Spent with Patient: Total time spent is greater than 50% in coordination of care (as documented) at patient's floor/unit and/or counseling patient: [place] [address] Inpt Consult Level 4 Patient Type New History Expanded Problem Focused Exam Expanded Problem Focused Medical Decision Making High Complexity Diagnoses DLBCL (diffuse large B cell lymphoma) C83.30 Breast cancer C50.919 Pleural effusion J90 Parotitis K11.20 Pancytopenia D61.818
[2022-04-21 06:41] LABS: Hematocrit (blood only) 29.7 % (34.1-44.9); Hemoglobin 8.9 g/dl (12.0-16.0); Mean Corpuscular Hemoglobin 30.8 pg (25.0-34.0); Mean Corpuscular Volume 102.8 fL (80.0-100.0); Mean Platelet Volume 12.9 fL (9.4-12.3); Platelet Count 47 K/uL (130-400); RDW Coefficient of Variation 20.4 % (11.5-14.5); RDW Standard Deviation 75.7 fL (36.4-46.3); Red Blood Count 2.89 M/uL (3.93-5.22)
[2022-04-21 06:53] LABS: Albumin Level 2.3 gm/dl (3.4-5.0); Bilirubin,Total 3.8 mg/dl (0.2-1.0); Calcium 8.1 mg/dl (8.5-10.1); Creatinine Clr Calc Pharmacy 119.4 ml/min; Est GFR (African American) 110.4 ml/min; Est GFR (Non-African American) 95.3 ml/min; Globulin 2.3 gm/dl (2.5-4.0); Potassium 3.4 mmol/L (3.5-5.1); Total Protein 4.6 gm/dl (6.0-8.3)
[2022-04-21 07:01] LABS: Anisocytosis Present
[2022-04-21 07:03] LABS: Basophils # (auto) 0.02 K/uL (0-0.2); Immature Granulocytes # (auto) 0.05 K/uL (0.00-0.02); Lymphocytes # (auto) 0.12 K/uL (1.2-3.4); Monocytes # (auto) 0.02 K/uL (0.24-0.82); Neutrophils # (auto) 0.79 K/uL (1.4-6.5)
[2022-04-21] MEDS: DOCUSATE SODIUM 100 MG CAP PO SCH ×2 (07:52→19:38)
[2022-04-21] MEDS: NYSTATIN POWDER 15GM BTL EXT SCH ×2 (07:53→21:01)
[2022-04-21] MEDS: VANCOMYCIN HCL 1,250 MG in SODIUM CHLORIDE 0.9% 250 ML IV SCH (08:55)
[2022-04-21] MEDS: CEFEPIME 2,000 MG in SYRINGE 0 ML IV SCH ×2 (08:55→20:53)
[2022-04-21] MEDS: ACETAMINOPHEN 1,000 MG/100 ML VIAL IV SCH ×2 (08:59→17:07)
[2022-04-21] MEDS ORDERED: LANTUS PER UNIT CHARGE SQ SCH ×3 (09:00→21:00)
--- NOTE | 2022-04-21 09:59 | Pharmacy Report ---
Pharmacy Glycemic Short Note 2 - Date of Service April 21, 2022 - Glycemic Short BSG Results (Last 24 hours): 04/20/22 04/20/22 04/20/22 11:36 12:58 16:13 Glucose 200 H POC Glucose 187 H 199 H 04/20/22 04/20/22 04/20/22 16:33 17:24 20:21 Glucose 209 H POC Glucose 198 H 235 H 04/20/22 04/21/22 04/21/22 21:20 00:38 05:37 Glucose 260 H POC Glucose 287 H 255 H 04/21/22 05:52 Glucose 249 H POC Glucose OUTPATIENT ANTIDIABETIC REGIMEN: * None * A1c 5.7% (04/20/22) ASSESSMENT: 04/21/22: * Ms Robbins's BSGs remain elevated, despite changes instituted yesterday. * Lantus increased this morning for fasting BSG 255mg/dL. * Dextrose IVF is now running at 200 mL/hr. Hypernatremia continues to improve. Expect that patient's insulin needs will decrease when dextrose is reduced/stopped. Will need to follow and adjust Lantus dosing accordingly to prevent hypoglycemia. * Consider increasing Novolog coverage to q4h if BSGs do not improve. Hesitate to increase frequency for patient comfort, however, tighter glycemic control is warranted to facilitate wound/infection healing. 04/20 * 76 year old female, PMH of PAF, HTN, HL, breast CA, recent dx B-cell lymphoma presented to ER from [facility] right sided facial swelling, parotitis now on IV Unasyn, AMS, hypernatremic on IV D5. * No history of DM, A1c 5.7% today, given 5 units IV insulin yesterday in ER, and 10 units of Lantus last night, and correctional insulin Q4H since admission. * Patient remains NPO until speech eval today. * Blood sugars still > 200mg/dl today - increase basal and tighten CF/CR at this time. PLAN FOR INPATIENT GLYCEMIC CONTROL: * Basal insulin * Lantus 20 units SQ BID * Bolus insulin * NovoLog per scale ACHS or Q6hrs while NPO * Goal Range: Low 110 mg/dL - High 140 mg/dL * Correction Factor: 20 mg/dL/unit * Nutritional / Prandial insulin per carb ratio of 1 unit per 7 grams CHO consumed
[2022-04-21] MEDS ORDERED: VANCOMYCIN HCL 250 MG in DEXTROSE 5% 100 ML IV ONE (11:00)
--- NOTE | 2022-04-21 11:02 | Pharmacy Report ---
Pharmacy PK ABX Note - Date of Service April 21, 2022 - Assessment and Plan Assessment 76 year old F receiving IV Vancomycin, cefepime, metronidazole for treatment of parotitis. Pertinent microbiologic data includes: urine culture growing gram negative bacilli (E. coli), blood cultures returned with MRSA isolated Dr. Cali would like to use all three antibiotics at this time, as patient is immunocompromised on chemo and d/t facial swelling. Plan Vancomycin * One time dose of 250 mg on 04/21 * Maintenance dose: 1500 mg IV every 12 hours * Regimen is predicted to achieve target AUC/BLAZE of 400-600 mg/L.hr * Random level ordered for: 04/22/22 Pharmacy has transitioned to AUC monitoring for vancomycin. AUC/BLAZE is the preferred PK/PD target and is associated with decreased risk of nephrotoxicity compared to traditional trough targets. Cefepime 2g IV Q12H Metronidazole 500mg IV Q8H Pharmacy will continue to follow and will adjust dose/frequency as necessary. Thank you.
[2022-04-21] MEDS ORDERED: FILGRASTIM 480 MCG/1.6 ML VIAL SC ONE (11:15)
--- NOTE | 2022-04-21 12:28 | Hospitalist Progress Note ---
Date of Service April 21, 2022 Assessment & Plan (1) Acute hypernatremia: (2) Toxic metabolic encephalopathy: (3) Altered mental status: Plan: Patient is 76-year-old female with PMH PAF, HTN, dyslipidemia, h/o breast cancer, recent diagnosis of B-cell lymphoma presented to ER from [facility] right sided facial swelling, lethargy x 1 day. Recent admission with hyponatremia that was thought secondary to hypervolemic hyponatremia and initially treated with 1.5 L fluid restriction, Lasix 20 mg twice daily, however Lasix was later discontinued secondary to hypotension Hypernatremia likely due to poor oral intake given her parotid swelling CT head:No acute intracranial hemorrhage, no acute infarction, no acute intracranial abnormality Encephalopathy likely secondary to hyponatremia, sepsis. Plan: -Currently on dextrose 5% at 200 cc/h with improvement in sodium. Will obtain BMP at 12 pm; will decrease the rate of IV fluids based on sodium level. She will need to be on D5 till she is able to tolerate anything by p.o. as she has increased risks of developing hypernatremia. -Unable to take anything p.o.; failed swallow evaluation. -Mouth care and lidocaine viscous ordered. -SNAGGER on board. (4) Sepsis: (5) Urinary tract infection: (6) MRSA bacteremia: (7) Parotitis: Plan: Reported right-sided facial swelling x1 day CT soft tissue neck: Interval development of a right-sided parotitis. The right- sided lymphadenopathy has slightly improved. Mucosal thickening throughout the hypopharynx most pronounced at the right palatine tonsil persists. No significant airway compromise at this time. Multiple source of infection which includes MRSA bacteremia, parotitis, sacral wound ulcer and urinary tract infection. Urine culture E. coli pansensitive Blood culture 1 out of 4 bottles positive for MRSA. Reviewed culture. Plan; Continue on current antibiotics which include cefepime, vancomycin and Flagyl. Repeat blood culture are pending. -PICC line removed yesterday; TTE ordered. ID consulted; appreciate recommendation. Duration and course of antibiotics will depend on clinical response and repeat blood culture. -Surgery consulted for debridement of sacral wound ulcer. Appreciate recommendation. (8) Diffuse large B-cell lymphoma: (9) Neutropenia: (10) Thrombocytopenia: Plan: On 04/05; patient had stroke alert for which CTA head and neck was done. Pathological bilateral cervical lymphadenopathy was seen. Patient underwent FNAC of left axillary lymph node on 04/07. She was diagnosed with diffuse B-cell lymphoma. Oncology concerned she has rapidly progressive disease. Recent treatment with prednisone and dose of IV cyclophosphamide. Was also given Neupogen. Developed hypercalcemia and was given Zometa. CT neck on admission shows slight improvement in right-sided lymphadenopathy. Today's labs show pancytopenia likely related with her cancer treatment. Her absolute neutrophil count is around 800, platelet -47 She has oral ulcers and hematuria as well. Plan; -Discussed with Dr. Solano. Given the neutropenia; he recommends her to be started on Neupogen. We will follow daily labs and repeat Neupogen as an as necessary. - As per oncology, patient has other acute issues to be dealt with first before cancer treatment can be reinitiated. Will obtain CT chest without contrast on nonemergent basis. (11) Hyperglycemia: Plan: Secondary to D5 and recently received high dose steroids as part of chemotherapy. Currently on lantus and novolog. HbA1c- 5.7%. (12) Cardiomyopathy: Plan: 03/27/2022 echo: EF: 45-50%, mild global hypokinesis, mild concentric LVH, mildly dilated right ventricle, severe left atrial dilation, mild , mild MR, small pericardial effusion without evidence of tamponade Will hold on lasix at this time Monitor I's & O's (13) Paroxysmal atrial fibrillation: Plan: s/p AV william ablation and biventricular pacemaker placement last admission. Anticoagulated on Eliquis 03/27/2022 echo: EF: 45-50%, mild global hypokinesis, mild concentric LVH, mildly dilated right ventricle, severe left atrial dilation, mild , mild MR, small pericardial effusion without evidence of tamponade A. fib RVR continued despite treatment with Cardizem drip, IV beta-blockers, amiodarone. Had cardioversion in 03/30/2022. Had biventricular pacemaker implanted on 04/03/22. Had AV william ablation on 04/04/22 Current paced rhythm on EKG Plan: Holding Eliquis given thrombocytopenia and hold metoprolol given her low BP (14) Elevated troponin: Plan: Likely demand ischemia High-sensitivity troponin: 100s; no delta difference. EKG paced rhythm (15) Pleural effusion: (16) Hypoxia: Plan: Recent history bilateral pleural effusions. 04/06/2022: Thoracentesis, total 1.3L removed. Cytology showed lymphocytes and reactive mesothelial cells and red blood cells, no malignant cells seen Today CT soft tissue neck: No change in the moderate right pleural effusion 90% on 2L oxygen via NC. Negative rapid Covid-19 test Supplemental oxygen as needed Monitor (17) HTN (hypertension): Plan: Recent hospitalization with noted low BPs Hold losartan, monitor BP (18) Breast cancer: Plan: History of left breast cancer s/p lumpectomy in 2015 DVT Prophylaxis SCDs Full Code as per discussion with the daughter Yanely today. Dispositioncontinue to be hospitalized due to multiple infection, neutropenia, thrombocytopenia, hypernatremia. Family prefers her to go to LTAC on discharge. Admission and Anticipated Discharge Date Admission Date: April 19, 2022 Subjective Patient seen and examined at bedside. She is less lethargic compared to yesterday. She is opening her eyes spontaneously and moving her extremities. She reports pain at the site of oral ulcers. Telemetry showed paced rhythm Review of Systems Review of Systems: All systems reviewed & are unremarkable except as noted in Subjective Physical Exam Physical Exam: Constitutional: Lethargic, ill-appearing. Head: Right-sided cheek swelling; tender on palpation. Slight improvement on swelling compared to yesterday. Mouth- reddness present in oral mucosa; no active site of bleeding Neck: trachea midline, no thyromegaly normal visual inspection Respiratory: Decreased breath sound at bilateral bases. Cardiovascular: RRR, no murmur, no edema Vessels: no JVD or carotid bruit Chest: normal inspection of chest Abdomen: distended; non-tender. Catalan in place with pinkish urine. Musculoskeletal: no cyanosis or clubbing, extremities motor strength 3/5. 2+ pitting edema present. Skin: no rashes, warm and dry normal turgor Neurologic: non-focal. Psychiatric: responds to voice; follows commands intermittently. : deferred Results & Data Results & Data ([facility]) Vital Signs (Past 12 Hours) Vital Signs Temp Pulse Pulse Pulse Resp BP BP 04/21/22 11:50 36.6 C 99 H 20 107/74 04/21/22 10:50 04/21/22 07:46 36.4 C L 90 20 100/68 04/21/22 03:49 80 98/70 L 04/21/22 03:03 36.3 C L 89 20 123/78 Pulse Ox O2 Del Method O2 Flow Rate 04/21/22 11:50 94 Nasal Cannula 3 04/21/22 10:50 Nasal Cannula 3 04/21/22 07:46 96 Nasal Cannula 3 04/21/22 03:49 04/21/22 03:03 93 Nasal Cannula 3 Laboratory Results Laboratory Results WBC 1.00 K/ul (4.8-10.8) L 04/21/22 05:52 RBC 2.89 M/uL (3.93-5.22) L 04/21/22 05:52 Hgb 8.9 g/dl (12.0-16.0) L 04/21/22 05:52 Hct 29.7 % (34.1-44.9) L 04/21/22 05:52 MCV 102.8 fL (80.0-100.0) H 04/21/22 05:52 MCH 30.8 pg (25.0-34.0) 04/21/22 05:52 MCHC 30.0 g/dL (32.0-36.0) L 04/21/22 05:52 RDW Std Deviation 75.7 fL (36.4-46.3) H 04/21/22 05:52 RDW Coeff of Carlita 20.4 % (11.5-14.5) H 04/21/22 05:52 Plt Count 47 K/uL (130-400) L 04/21/22 05:52 MPV 12.9 fL (9.4-12.3) H 04/21/22 05:52 Immature Gran % (Auto) 5.0 % 04/21/22 05:52 Neut % (Auto) 79.0 % 04/21/22 05:52 Lymph % (Auto) 12.0 % 04/21/22 05:52 Child[place] % (Auto) 2.0 % 04/21/22 05:52 Eos % (Auto) 0.0 % 04/21/22 05:52 Baso % (Auto) 2.0 % 04/21/22 05:52 Neut # (Auto) 0.79 K/uL (1.4-6.5) L* 04/21/22 05:52 Lymph # (Auto) 0.12 K/uL (1.2-3.4) L 04/21/22 05:52 Childress # (Auto) 0.02 K/uL (0.24-0.82) L 04/21/22 05:52 Eos # (Auto) 0.00 K/uL (0-0.50) 04/21/22 05:52 Baso # (Auto) 0.02 K/uL (0-0.2) 04/21/22 05:52 Immature Gran # (Auto) 0.05 K/uL (0.00-0.02) H 04/21/22 05:52 Absolute Nucleated RBC 0.03 K/uL (0-0) H 04/19/22 15:19 Nucleated RBC % (auto) 0.4 % 04/19/22 15:19 Neutrophils % (Manual) 98 % 04/19/22 15:19 Lymphocytes % (Manual) 2 % 04/19/22 15:19 Neutrophils # (Manual) 7.40 K/uL (1.4-6.5) H 04/19/22 15:19 Lymphocytes # (Manual) 0.15 K/uL (1.2-3.4) L 04/19/22 15:19 Dohle Bodies 1+ 04/19/22 15:19 Anisocytosis Present 04/21/22 05:52 PT 12.7 Seconds (9.0-12.0) H 04/19/22 15:19 INR 1.2 (0.9-1.1) H 04/19/22 15:19 APTT 31.5 Seconds (21.0-31.0) H 04/19/22 15:19 PTT Ratio 1.1 04/19/22 15:19 VBG pH 7.43 (7.36-7.41) H 04/19/22 17:00 VBG pCO2 62 mmHg (38-50) H 04/19/22 17:00 VBG pO2 31 mmHg 04/19/22 17:00 VBG HCO3 41 mmol/L 04/19/22 17:00 VBG O2 Saturation < 60.0 % 04/19/22 17:00 VBG Base Excess 13.9 mEq/L 04/19/22 17:00 Sodium 146 mmol/L (136-145) H 04/21/22 05:52 Potassium 3.4 mmol/L (3.5-5.1) L 04/21/22 05:52 Chloride 109 mmol/L (98-107) H 04/21/22 05:52 Carbon Dioxide 37 mmol/L (21-32) H 04/21/22 05:52 Anion Gap 0 (3-11) L 04/21/22 05:52 BUN 36 mg/dl (6-23) H 04/21/22 05:52 Creatinine 0.48 mg/dl (0.6-1.2) L 04/21/22 05:52 Est Cr Clr Drug Dosing 119.4 ml/min 04/21/22 05:52 Est GFR ( Amer) 110.4 ml/min 04/21/22 05:52 Est GFR (Non-Af Amer) 95.3 ml/min 04/21/22 05:52 BUN/Creatinine Ratio 75.0 (10-20) H 04/21/22 05:52 Glucose 249 mg/dl (70-99(Fasting)) H 04/21/22 05:52 POC Glucose 175 mg/dl (70-99) H 04/21/22 12:00 Estimat Average Glucose 117 mg/dl 04/20/22 05:39 Hemoglobin A1c 5.7 % (4.5-5.6) H 04/20/22 05:39 Lactate 1.3 mmol/L (0.4-2.0) 04/20/22 05:39 Uric Acid 4.2 mg/dl (2.6-7.2) 04/19/22 21:24 Calcium 8.1 mg/dl (8.5-10.1) L 04/21/22 05:52 Phosphorus 2.1 mg/dl (2.5-4.9) L 04/20/22 05:39 Magnesium 2.4 mg/dl (1.7-2.4) 04/20/22 05:39 Total Bilirubin 3.8 mg/dl (0.2-1.0) H 04/21/22 05:52 Direct Bilirubin 2.7 mg/dl (0-0.2) H 04/19/22 15:19 AST 20 U/L (13-39) 04/21/22 05:52 ALT 22 U/L (7-52) 04/21/22 05:52 Alkaline Phosphatase 51 U/L (34-104) 04/21/22 05:52 Troponin I High Sens 102.3 pg/ml (0-14) H* 04/19/22 21:24 Total Protein 4.6 gm/dl (6.0-8.3) L 04/21/22 05:52 Albumin 2.3 gm/dl (3.4-5.0) L 04/21/22 05:52 Globulin 2.3 gm/dl (2.5-4.0) L 04/21/22 05:52 Albumin/Globulin Ratio 1.0 (0.9-2) 04/21/22 05:52 Procalcitonin 0.18 ng/ml (0-0.5) 04/19/22 17:00 TSH 1.501 uIu/ml (0.300-4.500) 04/19/22 15:19 Urine Color [place] 04/19/22 18:14 Urine Appearance Turbid (Clear) A 04/19/22 18:14 Urine pH 5.5 (4.5-7.5) 04/19/22 18:14 Ur Specific [place] 1.023 (1.000-1.030) 04/19/22 18:14 Urine Protein 2+ (Negative) H 04/19/22 18:14 Urine Glucose (UA) Trace (Negative) H 04/19/22 18:14 Urine Ketones Negative (Negative) 04/19/22 18:14 Urine Blood 3+ (Negative) H 04/19/22 18:14 Urine Nitrite Positive (Negative) A 04/19/22 18:14 Urine Bilirubin 1+ (Negative) H 04/19/22 18:14 Urine Urobilinogen Positive (Negative) H 04/19/22 18:14 Ur Leukocyte Esterase 3+ (Negative) H 04/19/22 18:14 Urine WBC (Auto) >30 /hpf (0-5) H 04/19/22 18:14 Urine RBC (Auto) >30 /hpf (0-4) H 04/19/22 18:14 U Hyaline Cast (Auto) 1-5 /lpf (0-5) 04/19/22 18:14 U Epithel Cells (Auto) 10-20 /lpf (0-5) H 04/19/22 18:14 Urine Bacteria (Auto) 4+ (Negative) H 04/19/22 18:14 Nasal Screen MRSA (PCR) Positive (Negative) A 04/20/22 17:21 IgG 613.2 mg/dl (635-1741) L 04/20/22 12:58 IgA 444.5 mg/dl (70-400) H 04/20/22 12:58 IgM 63.8 mg/dl (45-281) 04/20/22 12:58 SARS-CoV-2, RNA, NAAT NEGATIVE (NEGATIVE) 04/19/22 17:47 Staphylococcus sp PCR DETECTED (NotDetected) A 04/19/22 15:20 Staph aureus (PCR) DETECTED (NotDetected) A 04/19/22 15:20 mecA/C & MREJ Resist Gene MRSA DETECTED (NotDetected) A* 04/19/22 15:20 Bld Cult ID Panel PCR See PCR Comment (NotDetected) 04/19/22 15:[address] 04/19/22 14:50 CT head/brain wo con CLINICAL HISTORY: confusion Technique: Contiguous axial CT images of the head were acquired from the base of the skull to the vertex without intravenous contrast administration. Images were viewed in brain, subdural and bone windows. Automated dose lowering techniques and/or adjustment according to patient size were utilized for this exam. Comparison: Comparison is made to CT head 04/08/2022 Findings: Areas of decreased attenuation are present in the periventricular and subcortical white matter bilaterally consistent with small vessel ischemic disease. Generalized cerebral atrophy with commensurate enlargement of the ventricles, sulci, and cisterns is also present. There is no acute intracranial hemorrhage or evidence of acute territorial infarction. No shift of the midline structures, mass effect, or extra-axial abnormalities are shown. Atherosclerotic calcifications are present in the intracranial segments of the internal carotid arteries. Left sphenoid and ethmoid sinus opacification is noted. The orbits appear normal. There are no acute fractures of the calvaria or scalp swelling. Impression: No acute intracranial hemorrhage, no evidence of acute territorial infarction or other acute intracranial disease process. ACT 112: Negative or not required by law. Electronically signed by: José Neil M.D. 04/19/2022 4:38 PM Soft Tissue Neck CT 04/19/22 14:53 CT soft tissue neck w con HISTORY: R facial swelling TECHNIQUE: Multiaxial CT images of the neck were performed following the intravenous administration of contrast. Sagittal and coronal reformations were performed at the workstation by the radiologist. COMPARISON STUDY: Neck CTA 04/05/2022. FINDINGS: There is again noted right-sided lymphadenopathy. This has improved in the interval. Dominant lymph node currently measures 2.0 x 1.0 cm this producing measured 2.4 x 2.0 cm. Decrease in size in the lymphadenopathy/soft tissue mass adjacent to the angle of the right hemimandible. This currently measures 1.9 cm, previously measuring 3.1 cm. Moderate right pleural effusion is again noted. The mastoid air cells are clear. Near complete opacification the left posterior ethmoid air cells and left sphenoid sinus. This is new from the prior study. Right mandibular condyle deformity, unchanged. No suspicious lytic or blastic osseous lesions. Normal thyroid gland. Partially visualized left-sided pacemaker. Mild mucosal thickening throughout the majority of the hypopharynx most pronounced at the right palatine tonsil. This is similar to the prior study. The epiglottis is normal in thickness. No prevertebral fluid collections identified. Enlargement and increased density with adjacent fat stranding within the right parotid gland. This is consistent with a right-sided parotitis. This is new from the prior study. There is subcutaneous edema within the right lateral and anterior neck. Small foci of gas within the neck appear to correspond to intravenous contrast and may be due to prior line insertion. 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 Moderate calcified plaque within the bilateral carotid bifurcations without significant stenosis. No loculated fluid collections to suggest an abscess. IMPRESSION: 1. Interval development of a right-sided parotitis. 2. The right-sided lymphadenopathy has slightly improved. 3. Mucosal thickening throughout the hypopharynx most pronounced at the right palatine tonsil persists. No significant airway compromise at this time. 4. No change in the moderate right pleural effusion. ACT 112: Negative or not required by law. Electronically signed by: German Lemon M.D. 04/19/2022 4:43 PM Abdomen/Pelvis CT 04/19/22 21:15 CT SCAN OF THE ABDOMEN AND PELVIS WITHOUT IV CONTRAST CLINICAL HISTORY: Lymphoma. COMPARISON STUDY: Abdominal CT dated 04/06/2022. TECHNIQUE: CT scan of the abdomen and pelvis is performed from the lung bases to the proximal femora. Images are reviewed in the axial, sagittal, and coronal planes. IV contrast was not administered for this examination as per the referring clinician. Note that the examination was performed in significantly suboptimal fashion without oral or IV contrast. There is also motion artifact, as well as streak artifact from the arms which could not be elevated of the abdomen. A dose lowering technique was utilized adhering to the principles of ALARA. CT DOSE: 1702.02 mGy.cm FINDINGS: Lung bases: The heart is enlarged noting a small pericardial effusion. The coronary arteries are densely calcified. Pacemaker leads are in place. There are [id number] pleural effusions with dense bibasilar consolidation. Liver: The unenhanced liver is normal in size, contour, and attenuation. There is no intrahepatic biliary ductal dilatation. A 12 mm cyst is noted in the left lobe. Gallbladder: Vicarious excreted contrast. The gallbladder. Spleen: Normal in size and attenuation, measuring 10.2 cm in length. There is a calcified splenic granuloma. Pancreas: Trace fluid is seen adjacent to pancreatic tail. The unenhanced pancreas is moderately atrophic and grossly unremarkable. Adrenal glands: Unremarkable. Kidneys: The unenhanced kidneys are normal in size and without hydronephrosis. Excreted IV contrast is present within the renal collecting systems. This degrades assessment for nephrolithiasis. There is no evidence of contour deforming renal mass lesion. Abdominal vasculature: The abdominal aorta is normal in course and caliber noting advanced atherosclerotic calcification. Bowel: There is no bowel obstruction. Residual enteric contrast is noted in the colon. There is mild colonic diverticulosis without CT evidence of acute diverticulitis. The appendix is well-visualized and normal. Peritoneum: There is no intraperitoneal free air or abdominal ascites. There is mesenteric edema. There is laxity of the ventral wall the pelvis with diastases of the rectus musculature and protrusion of abdominal contents. There is a 1.6 cm focus of irregular nodularity within the pelvic mesentery on image #[id number]. A 1.4 cm irregular nodule seen on image #339. These have significantly decreased in size as compared to 04/06/2022. Lymphadenopathy: None. Pelvic viscera: The bladder is decompressed around a Catalan catheter and could not be assessed. There is intraluminal gas, as well as excreted IV contrast within the bladder. The uterus is surgically absent. No adnexal lesion is seen. Nodularity along the left aspect of the vaginal cuff has almost completely resolved. Skeletal structures: The skeletal structures are osteopenic. There is moderate lumbosacral spondylosis. No lytic or blastic lesions are seen. Soft tissues: There is mild body wall edema. IMPRESSION: 1. Significantly suboptimal examination bilateral and IV contrast. There is also streak and motion artifact. 2. Mesenteric nodules seen on 04/06/2022 have significantly decreased in size from previous. Nodularity along the left vaginal cuff has almost completely resolved. 3. There are small to moderate pleural effusions with dense bibasilar consolidation. This has significantly increased as compared to 04/06/2022. Clinical correlation will be required. 4. Trace nonspecific fluid is seen adjacent to the pancreatic tail. Correlate with serum lipase levels. 5. Additional findings as above. ACT 112: Negative or not required by law. Electronically signed by: Burke Hernandez M.D. 04/20/2022 7:38 AM Chest X-Ray 04/20/22 09:31 XR chest 1V portable HISTORY: Evaluate PICC PLACEMENT COMPARISON: Chest 04/19/2022. FINDINGS: Interval placement of a right PICC which appears to terminate at the distal SVC/cavoatrial junction. No pneumothorax. Left-sided pacemaker. Pulmonary edema, cardiomegaly, moderate bilateral pleural fusions, and bibasilar densities persist. IMPRESSION: 1. The right PICC appears to terminate at the distal SVC/cavoatrial junction. 2. Redemonstration of the pulmonary edema, bilateral pleural effusions, and bibasilar densities. ACT 112: Negative or not required by law. Electronically signed by: German Lemon M.D. 04/20/2022 10:15 AM
[2022-04-21 13:37] LABS: BUN Creatinine Ratio 72.9 (10-20); Calcium 7.8 mg/dl (8.5-10.1); Creatinine Clr Calc Pharmacy 119.4 ml/min; Est GFR (African American) 110.4 ml/min; Est GFR (Non-African American) 95.3 ml/min; Potassium 3.8 mmol/L (3.5-5.1)
[2022-04-21 18:38] LABS: BUN Creatinine Ratio 83.3 (10-20); Calcium 7.6 mg/dl (8.5-10.1); Creatinine Clr Calc Pharmacy 136.4 ml/min; Est GFR (African American) 115.4 ml/min; Est GFR (Non-African American) 99.6 ml/min; Potassium 3.6 mmol/L (3.5-5.1)
[2022-04-21] MEDS: VANCOMYCIN HCL 1,500 MG in SODIUM CHLORIDE 0.9% 500 ML IV SCH (22:23)
[2022-04-22] MEDS: INSULIN ASPART PER UNIT SC SCH ×6 (00:25→20:45)
[2022-04-22] MEDS: ACETAMINOPHEN 1,000 MG/100 ML VIAL IV SCH ×4 (00:28→23:41)
[2022-04-22] MEDS: METOPROLOL TARTRATE 1 MG/ML VIAL IV SCH ×4 (03:41→21:01)
[2022-04-22] MEDS: metroNIDAZOLE 500 MG/100 ML BAG IV SCH ×3 (04:02→20:48)
[2022-04-22 07:20] LABS: Albumin Globulin Ratio 0.9 (0.9-2); Albumin Level 2.2 gm/dl (3.4-5.0); BUN Creatinine Ratio 74.4 (10-20); Bilirubin,Total 4.5 mg/dl (0.2-1.0); Calcium 7.7 mg/dl (8.5-10.1); Creatinine Clr Calc Pharmacy 136.1 ml/min; Est GFR (African American) 114.5 ml/min; Est GFR (Non-African American) 98.8 ml/min; Globulin 2.4 gm/dl (2.5-4.0); Potassium 3.8 mmol/L (3.5-5.1); Total Protein 4.6 gm/dl (6.0-8.3)
[2022-04-22 07:34] LABS: Hematocrit (blood only) 29.5 % (34.1-44.9); Hemoglobin 9.2 g/dl (12.0-16.0); Mean Corpuscular Hemoglobin 30.8 pg (25.0-34.0); Mean Corpuscular Hgb Conc 31.2 g/dL (32.0-36.0); Mean Corpuscular Volume 98.7 fL (80.0-100.0); Mean Platelet Volume 13.6 fL (9.4-12.3); Platelet Count 52 K/uL (130-400); RDW Coefficient of Variation 19.9 % (11.5-14.5); Red Blood Count 2.99 M/uL (3.93-5.22); White Blood Count 0.25 K/ul (4.8-10.8)
[2022-04-22] MEDS ORDERED: FILGRASTIM 480 MCG/1.6 ML VIAL SC ONE (08:00)
[2022-04-22] MEDS: DOCUSATE SODIUM 100 MG CAP PO SCH ×2 (08:54→20:46)
[2022-04-22] MEDS: NYSTATIN POWDER 15GM BTL EXT SCH ×2 (08:55→20:49)
[2022-04-22] MEDS: DEXTROSE 5% 1,000 ML IV SCH (09:10)
[2022-04-22] MEDS: CEFEPIME 2,000 MG in SYRINGE 0 ML IV SCH ×2 (09:11→21:00)
[2022-04-22] MEDS ORDERED: VANCOMYCIN LEVEL ONE (09:30)
[2022-04-22] MEDS: FOLIC ACID 1 MG in SYRINGE 9.8 ML IV SCH (10:01)
[2022-04-22 10:33] LABS: Reticulocyte % 0.5 % (0.5-2.0); Reticulocytes # 0.02 10^6/uL (0.02-0.10)
--- NOTE | 2022-04-22 10:33 | Pharmacy Report ---
Pharmacy PK ABX Note - Date of Service April 22, 2022 - Assessment and Plan Assessment 76 year old F receiving IV Vancomycin, cefepime, metronidazole for treatment of parotitis and MRSA bacteremia. Pertinent microbiologic data includes: urine culture growing gram negative baci lli (E. coli), 04/19 blood cultures (+) MRSA. Repeat blood cultures 04/20 (+) MRSA. ID consulted. Day # 3 vancomycin Plan Vancomycin * Random level this AM, 21.9mcg/mL (~8hr level). Predicted to achieve steady state AUC/BLAZE ~ 600mg/L.hr (trough ~ 19.6mcg/mL) which is therapeutic. * Continue vancomycin 1500mg IV q12h * Will repeat a random tomorrow AM given targeting the high end of therapeutic range Pharmacy will continue to follow and will adjust dose/frequency as necessary. Thank you. Pharmacy has transitioned to AUC monitoring for vancomycin. AUC/BLAZE is the preferred PK/PD target and is associated with decreased risk of nephrotoxicity compared to traditional trough targets.
[2022-04-22] MEDS ORDERED: FUROSEMIDE INJ 20 MG/2 ML VIAL IV ONE (10:47)
[2022-04-22] MEDS: VANCOMYCIN HCL 1,500 MG in SODIUM CHLORIDE 0.9% 500 ML IV SCH ×2 (10:57→22:50)
[2022-04-22] MEDS ORDERED: CYANOCOBALAMIN 1000 MCG/ML VIAL IM ONE (11:00)
[2022-04-22] MEDS: THIAMINE HCL 100 MG in SYRINGE 9 ML IV SCH (11:41)
[2022-04-22] MEDS: TRIAMCINOLONE ACET 0.1% ORABASE 5 GM TUBE MT SCH ×2 (11:41→20:48)
[2022-04-22] MEDS: CLOTRIMAZOLE 10 MG TROCHE BUCCAL SCH ×4 (11:41→23:09)
[2022-04-22] MEDS ORDERED: MULTI-VITAMIN INFUSION 10 ML, THIAMINE HCL 100 MG, FOLIC ACID 1 MG in SODIUM CHLORIDE 0... IV ONE (12:39)
--- NOTE | 2022-04-22 13:44 | Cardiology Consultation ---
Date of Consultation April 22, 2022 Assessment & Plan (1) MRSA bacteremia: (2) Atrial fibrillation, permanent: (3) Status post biventricular pacemaker: (4) Chronic heart failure with preserved ejection fraction: (5) Cardiomyopathy: (6) Aortic stenosis: (7) Pericardial effusion: Plan ASSESSMENT/PLAN: 1. Bacteremia: Transesophageal echo is not recommended. She has painful oral ulcers. If found to have vegetation on pacemaker lead, she is pacemaker dependent and therefore would be very difficult situation. 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 Recommend treating for presumed infection with prolonged antibiotic course but will defer to Infectious Disease data integrity consultant in regards to overall antibiotic therapy. Also, transesophageal echo would not definitively rule out vegetation even if performed. This was discussed in detail with patient and also her daughter, Latonya via telephone. Patient and daughter are in agreement to forego transesophageal echo. 2. Atrial fibrillation s/p AV william ablation and biventricular pacemaker: Follow-up with electrophysiology. 3. Chronic heart failure with improved EF: Had reduced EF last hospital stay in the setting of AFib with RVR. LV systolic function now normal. Difficult to know her intravascular volume status but she does appear to have significant edema. She was hyponatremic on presentation and has received D5 to correct her sodium concentration. Would try to maintain a net negative fluid balance if able. 4. Cardiomyopathy: Likely tachycardia induced as LV systolic function appears normal in with improved heart rate following AV william ablation and pacemaker placement. 5. Aortic stenosis: Non severe. Can be followed as an outpatient as appropriate. 6. Pericardial effusion: Was present on March 2022 echo and during this hospital stay. No evidence of tamponade physiology. There is an organized collection which was present on previous echo as well. Overall, appears stable. There does not appear to be hemodynamic compromise. 7. Disposition: Plan as above. Patient care discussed with primary hospitalist, Dr. Carpenter. Please call with any other questions or concerns. Patient should follow-up with Dr. Wright on discharge. Highly complex medical issues. Thank you for allowing me to participate in the care of your patient. Please call for any other questions or concerns. Sincerely, Juan M Antoine M.D. History of Present Illness Reason for Consultation: Recent pacemaker implantation with MRSA bacteremia. Question transesophageal echo. Requesting Physician: Woodrow Carpenter MD Attending Physician: Woodrow Carpenter MD History of Present Illness Mrs. Robbins is a pleasant 76-year-old female with a history significant for permanent atrial fibrillation s/p AV william ablation and biventricular pacemaker implantation, cardiomyopathy, CHF, hypertension, aortic stenosis, history of breast cancer, diffuse large B-cell lymphoma (diagnosed April 2022), and TI A/stroke. Her primary senior project accountant is Dr. Wright. She was recently hospitalized from 03/26/2022 and discharged on 04/18/2022 with multiple medical problems. She was hyponatremic, appeared to be hypervolemic with CHF, had persistent atrial fibrillation and despite cardioversion on amiodarone, reverted to atrial fibrillation with rapid ventricular response. There were issues with hypotension during hospital stay with diuresis. Atrial fibrillation was not able to be sufficiently rate controlled. She underwent AV william ablation and biventricular pacemaker placement with Dr. Lopes. She had s troke or TIA during hospital stay and during evaluation, was found to have diffuse large B-cell lymphoma. She has since undergone treatment for her large B-cell lymphoma. She also has been diagnosed with parotitis. During this hospital stay, she was found to have acute hypernatremia and treated with D5 IV fluids. During this hospital stay, she was found to have positive blood cultures growing MRSA on 04/20/2022 and 04/19/2022. Cultures are negative so far from 04/21/2022 but still preliminary. Cardiology was asked to evaluate her for possible transesophageal echo to further evaluate her pacemaker leads given recent implantation and now bacteremic. She had a transthoracic echo done during his hospital stay without reported vegetation. She was noted to have a pericardial effusion which was previously seen with organized fibrinous material in the pericardial space, which was also present on previous echo on 03/27/2022. She denies chest pain, shortness of breath, syncope, palpitations, or pain from her pacemaker pocket. There has not been any reported drainage or redness to that area. Her biggest issue is mild pain. She has had oral ulcerations. She states that when she has a mild swab, he brings some comfort to her mouth. She was alone in her hospital room, but her daughter, Latonya, was contacted via telephone to discuss these issues. Patient consented to having her daughter called. Review of systems: As above. Family history: Noncontributory. Social history: . She has children. Allergies Allergy/AdvReac Type Severity Reaction Status Date / Time No Known Allergies Allergy Verified 04/19/22 17:29 Home Medications Medication Instructions Recorded Confirmed Type multivitamin (Multiple Vitamins 1 tab PO QAM 10/15/18 04/19/22 History tablet) apixaban 5 mg tablet 5 mg PO BID 01/29/19 04/19/22 History losartan 25 mg tablet 25 mg PO DAILY 03/26/22 04/19/22 History melatonin 3 mg tablet 3 mg PO HS 03/26/22 04/19/22 History cyanocobalamin (vitamin B-12) 1,000 mcg PO DAILY #30 caps 04/18/22 04/19/22 Rx 1,000 mcg capsule lidocaine 5 % topical patch 1 patch transdermal QAM 30 days 04/18/22 04/19/22 Rx #30 ea metoprolol succinate 25 mg 25 mg PO DAILY 30 days #30 tabs 04/18/22 04/19/22 Rx tablet,extended release 24 hr nystatin 100,000 unit/gram topical 1 applic EXT BID 10 days #50 grams 04/18/22 04/19/22 Rx powder (Nystop) paroxetine HCl 10 mg tablet 10 mg PO DAILY 30 days #30 tabs 04/18/22 04/19/22 Rx docusate sodium 100 mg capsule 100 mg PO BID 04/19/22 04/19/22 History Patient History Medical History (Updated 04/22/22 @ 13:51 by Nils Antoine MD) Aortic stenosis Atrial fibrillation on eliquis follows with Dannie Shields Breast cancer 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 (01/27/15) "Abnormal left breast mammogram Status post ultrasound-guided core needle biopsy 01/25/2015 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, progesterone receptor negative, HER-2/yury negative Status post lumpectomy and sentinel lymph node biopsy 03/03/2015 Pathologic stage [id number] Status post reexcision 03/23/2015 due to positive margin no residual tumor Status post completion of radiation therapy 06/10/2015 received 6120 cGy " On 07/09/15 10:05 Siria Dunham wrote "Abnormal left breast mammogram Status post ultrasound-guided core needle biopsy 01/25/2015 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, progesterone receptor negative, HER-2/yury negative Status post lumpectomy and sentinel lymph node biopsy 03/03/2015 Pathologic stage [id number] Status post reexcision 03/23/2015 due to positive margin no residual tumor " On 07/09/15 10:05 Siria Dunham wrote "Abnormal left breast mammogram Status post ultrasound-guided core needle biopsy 01/25/2015 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, progesterone receptor negative, HER-2/yury negative Status post lumpectomy and sentinel lymph node biopsy 03/03/2015 Pathologic stage [id number] Status post reexcision 03/23/2015 due to positive margin no residual tumor " On 04/07/15 12:14 Siria Dunham wrote "Abnormal left breast mammogram Status post ultrasound-guided core needle biopsy 01/25/2015 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, progesterone receptor negative, HER-2/yury negative Status post lumpectomy and sentinel lymph node biopsy 03/03/2015 Pathologic stage [id number] Status post reexcision 03/23/2015 due to positive margin no residual tumor" On 04/07/15 12:12 Siria Dunham wrote "Abnormal left breast mammogram Status post ultrasound-guided core needle biopsy 01/25/2015 Invasive ductal carcinoma Jana receptor negative, progesterone receptor negative, HER-2/yury negative Status post lumpectomy and sentinel lymph node biopsy 03/03/2015 Pathologic stage [id number] Status post reexcision 03/23/2015 due to positive margin no residual tumor" Cardiomyopathy Chronic hyponatremia Diffuse large B-cell lymphoma HTN (hypertension) Morbid obesity with BMI of 40.0-44.9, adult On anticoagulant therapy eliquis daily Pericardial effusion Pleural effusion TIA (transient ischemic attack) Surgical History (Updated 04/22/22 @ 13:50 by Nils Antoine MD) History of breast surgery 03/2015 reexcision of lump of left breast History of colonoscopy History of lumpectomy of left breast 02/2015 with sentinel lymph node biopsy History of needle biopsy 01/2018 left breast--malignant History of tooth extraction History of total hysterectomy with bilateral salpingo-oophorectomy (BSO) History of wisdom tooth extraction Status post biventricular pacemaker Family History Mother Family hx of colon cancer Other No family history of adverse response to anesthesia No pertinent family history Social History Smoking Status: Unknown if ever smoked Second Hand Exposure: Yes ( smoked); Hx Alcohol Use: No Hx Substance Use: No Preferred Language: Khmer Communication Ability: Effective Rn Visiting Required: No Beliefs That Will Affect Care: Ep[employer]opalian Current Living Situation: Spouse Feels Safe at Home: Yes Assistive Devices: None Physical Exam Physical Exam: Gen.: No acute distress. Somnolent but easily awakens on verbal stimuli and then appeared alert. Answered questions appropriately. HEENT: Anicteric sclera. Neck: No appreciable JVD. Fullness and firmness right neck/right face (diagnosed with parotitis). Cardiac: PMI was nonpalpable. No ventricular heave. Regular. Normal S1-S2. No murmurs, rubs, or gallops. Pulmonary: Clear to auscultation bilaterally on anterior auscultation. Abdomen: Soft, nontender, nondistended, with normoactive bowel sounds. No bruits noted. Extremities: 2+ radial pulses bilaterally. 2+ posterior tibialis pulses bilaterally. 2+ bilateral lower extremity pitting edema to the hips. 1+ right upper extremity edema. No cyanosis. Chest: Left upper chest pacemaker pocket is non erythematous. No hematoma. No drainage. Results & Data ([facility]) Vital Signs (Past 12 Hours) Vital Signs Temp Pulse Pulse Resp BP BP Pulse Ox 04/22/22 11:19 36.8 C 89 17 90/58 L 96 04/22/22 07:47 36.8 C 89 16 143/63 H 96 04/22/22 03:41 88 103/67 04/22/22 03:38 36.8 C 88 18 103/67 97 O2 Del Method O2 Flow Rate 04/22/22 11:19 Nasal Cannula 3 04/22/22 07:47 Nasal Cannula 3 04/22/22 03:41 04/22/22 03:38 Nasal Cannula 3 Intake & Output 04/20/22 04/21/22 04/22/22 04/23/22 06:59 06:59 06:59 06:59 Intake Total 2363.733 / 2363.733 4435.017 / 4435.017 4394.667 / 4394.667 908.667 / 908.667 Output Total 600 / 600 900 / 900 975 / 975 200 / 200 Balance 1763.733 / 3474.890 3305.017 / 3535.017 3419.667 / 3419.667 708.667 / 708.667 Weight 228 lb 2.855 oz 229 lb 8.019 oz 238 lb 5.115 oz 238 lb 5.115 oz Laboratory Results Laboratory Results - last 24 hr 04/21/22 04/21/22 04/21/22 18:04 18:09 20:02 WBC RBC Hgb Hct MCV MCH MCHC RDW Std Deviation RDW Coeff of Carlita Plt Count MPV Immature Gran % (Auto) Neut % (Auto) Lymph % (Auto) [place] % (Auto) Eos % (Auto) Baso % (Auto) Reticulocyte % (Auto) Neut # (Auto) Lymph # (Auto) [place] # (Auto) Eos # (Auto) Baso # (Auto) Reticulocyte # Immature Gran # (Auto) Neutrophils % (Manual) Band Neutrophils % Lymphocytes % (Manual) Prolymphocyte % Reactive Lymphs % (Man) Monocytes % (Manual) Eosinophils % (Manual) Basophils % (Manual) Metamyelocytes % (Man) Myelocytes % (Man) Promyelocytes % (Man) Blast Cells % (Manual) Plasma Cell % (Manual) Other Cells % Nucleated RBC % Neutrophils # (Manual) Band Neutrophils # Total Absolute Neuts Lymphocytes # (Manual) Prolymphocyte # Reactive Lymphs # Total Abs Lymphocytes Monocytes # (Manual) Eosinophils # (Manual) Basophils # (Manual) Metamyelocytes # (Man) Myelocytes # (Manual) Promyelocytes # (Man) Blast Cells # (Man) Plasma Cell # (Manual) Other Cells # Nucleated RBCs # (Man) Hypersegmented Neuts Hyposegmented Neuts Hypogranular Neuts Large Granular Lymphs # Lrg Granular Lymphs Hairy Cells Smudge Cells Toxic Granulation Toxic Vacuolation Dohle Bodies Dolores Rods Hypogranular Platelets Clumped Platelets Giant Platelets Platelet Satelliting RBC Morphology Polychromasia Hypochromasia Poikilocytosis Basophilic Stippling Anisocytosis Microcytosis Macrocytosis Spherocytes Pappenheimer Bodies Sickle Cells Target Cells Tear Drop Cells Ovalocytes Stomatocytes Do-Teague Bodies Echinocytes Acanthocytes (Spur) Rouleaux RBC Agglutinates Schistocytes Sezary Cell Haptoglobin Sodium 144 Potassium 3.6 Chloride 108 H Carbon Dioxide 36 H Anion Gap 0 L BUN 35 H Creatinine 0.42 L Est Cr Clr Drug Dosing 136.4 Est GFR ( Amer) 115.4 Est GFR (Non-Af Amer) 99.6 BUN/Creatinine Ratio 83.3 H Glucose 80 POC Glucose 77 68 L* Calcium 7.6 L Total Bilirubin AST ALT Alkaline Phosphatase Total Protein Albumin Globulin Albumin/Globulin Ratio Random Vancomycin Blood Parasites ID 04/21/22 04/22/22 04/22/22 20:04 00:10 03:44 WBC RBC Hgb Hct MCV MCH MCHC RDW Std Deviation RDW Coeff of Carlita Plt Count MPV Immature Gran % (Auto) Neut % (Auto) Lymph % (Auto) [place] % (Auto) Eos % (Auto) Baso % (Auto) Reticulocyte % (Auto) Neut # (Auto) Lymph # (Auto) [place] # (Auto) Eos # (Auto) Baso # (Auto) Reticulocyte # Immature Gran # (Auto) Neutrophils % (Manual) Band Neutrophils % Lymphocytes % (Manual) Prolymphocyte % Reactive Lymphs % (Man) Monocytes % (Manual) Eosinophils % (Manual) Basophils % (Manual) Metamyelocytes % (Man) Myelocytes % (Man) Promyelocytes % (Man) Blast Cells % (Manual) Plasma Cell % (Manual) Other Cells % Nucleated RBC % Neutrophils # (Manual) Band Neutrophils # Total Absolute Neuts Lymphocytes # (Manual) Prolymphocyte # Reactive Lymphs # Total Abs Lymphocytes Monocytes # (Manual) Eosinophils # (Manual) Basophils # (Manual) Metamyelocytes # (Man) Myelocytes # (Manual) Promyelocytes # (Man) Blast Cells # (Man) Plasma Cell # (Manual) Other Cells # Nucleated RBCs # (Man) Hypersegmented Neuts Hyposegmented Neuts Hypogranular Neuts Large Granular Lymphs # Lrg Granular Lymphs Hairy Cells Smudge Cells Toxic Granulation Toxic Vacuolation Dohle Bodies Dolores Rods Hypogranular Platelets Clumped Platelets Giant Platelets Platelet Satelliting RBC Morphology Polychromasia Hypochromasia Poikilocytosis Basophilic Stippling Anisocytosis Microcytosis Macrocytosis Spherocytes Pappenheimer Bodies Sickle Cells Target Cells Tear Drop Cells Ovalocytes Stomatocytes Do-Teague Bodies Echinocytes Acanthocytes (Spur) Rouleaux RBC Agglutinates Schistocytes Sezary Cell Haptoglobin Sodium Potassium Chloride Carbon Dioxide Anion Gap BUN Creatinine Est Cr Clr Drug Dosing Est GFR ( Amer) Est GFR (Non-Af Amer) BUN/Creatinine Ratio Glucose POC Glucose 75 101 H 108 H Calcium Total Bilirubin AST ALT Alkaline Phosphatase Total Protein Albumin Globulin Albumin/Globulin Ratio Random Vancomycin Blood Parasites ID 04/22/22 04/22/22 04/22/22 06:36 06:36 06:36 WBC 0.25 L* RBC 2.99 L Hgb 9.2 L Hct 29.5 L MCV 98.7 MCH 30.8 MCHC 31.2 L RDW Std Deviation 70.0 H RDW Coeff of Carlita 19.9 H Plt Count 52 L MPV 13.6 H Immature Gran % (Auto) Cancelled Neut % (Auto) Cancelled Lymph % (Auto) Cancelled [place] % (Auto) Cancelled Eos % (Auto) Cancelled Baso % (Auto) Cancelled Reticulocyte % (Auto) Neut # (Auto) Cancelled Lymph # (Auto) Cancelled [place] # (Auto) Cancelled Eos # (Auto) Cancelled Baso # (Auto) Cancelled Reticulocyte # Immature Gran # (Auto) Cancelled Neutrophils % (Manual) Cancelled Band Neutrophils % Cancelled Lymphocytes % (Manual) Cancelled Prolymphocyte % Cancelled Reactive Lymphs % (Man) Cancelled Monocytes % (Manual) Cancelled Eosinophils % (Manual) Cancelled Basophils % (Manual) Cancelled Metamyelocytes % (Man) Cancelled Myelocytes % (Man) Cancelled Promyelocytes % (Man) Cancelled Blast Cells % (Manual) Cancelled Plasma Cell % (Manual) Cancelled Other Cells % Cancelled Nucleated RBC % Cancelled Neutrophils # (Manual) Cancelled Band Neutrophils # Cancelled Total Absolute Neuts Cancelled Lymphocytes # (Manual) Cancelled Prolymphocyte # Cancelled Reactive Lymphs # Cancelled Total Abs Lymphocytes Cancelled Monocytes # (Manual) Cancelled Eosinophils # (Manual) Cancelled Basophils # (Manual) Cancelled Metamyelocytes # (Man) Cancelled Myelocytes # (Manual) Cancelled Promyelocytes # (Man) Cancelled Blast Cells # (Man) Cancelled Plasma Cell # (Manual) Cancelled Other Cells # Cancelled Nucleated RBCs # (Man) Cancelled Hypersegmented Neuts Cancelled Hyposegmented Neuts Cancelled Hypogranular Neuts Cancelled Large Granular Lymphs Cancelled # Lrg Granular Lymphs Cancelled Hairy Cells Cancelled Smudge Cells Cancelled Toxic Granulation Cancelled Toxic Vacuolation Cancelled Dohle Bodies Cancelled Dolores Rods Cancelled Hypogranular Platelets Cancelled Clumped Platelets Cancelled Giant Platelets Cancelled Platelet Satelliting Cancelled RBC Morphology Cancelled Polychromasia Cancelled Hypochromasia Cancelled Poikilocytosis Cancelled Basophilic Stippling Cancelled Anisocytosis Cancelled Microcytosis Cancelled Macrocytosis Cancelled Spherocytes Cancelled Pappenheimer Bodies Cancelled Sickle Cells Cancelled Target Cells Cancelled Tear Drop Cells Cancelled Ovalocytes Cancelled Stomatocytes Cancelled Do-Teague Bodies Cancelled Echinocytes Cancelled Acanthocytes (Spur) Cancelled Rouleaux Cancelled RBC Agglutinates Cancelled Schistocytes Cancelled Sezary Cell Cancelled Haptoglobin Sodium 143 Potassium 3.8 Chloride 108 H Carbon Dioxide 34 H Anion Gap 1 L BUN 32 H Creatinine 0.43 L Est Cr Clr Drug Dosing 136.1 Est GFR ( Amer) 114.5 Est GFR (Non-Af Amer) 98.8 BUN/Creatinine Ratio 74.4 H Glucose 105 H POC Glucose Calcium 7.7 L Total Bilirubin 4.5 H AST 23 ALT 23 Alkaline Phosphatase 48 Total Protein 4.6 L Albumin 2.2 L Globulin 2.4 L Albumin/Globulin Ratio 0.9 Random Vancomycin 21.9 H Blood Parasites ID Cancelled 04/22/22 04/22/22 04/22/22 06:36 08:02 09:15 WBC RBC Hgb Hct MCV MCH MCHC RDW Std Deviation RDW Coeff of Carlita Plt Count MPV Immature Gran % (Auto) Neut % (Auto) Lymph % (Auto) [place] % (Auto) Eos % (Auto) Baso % (Auto) Reticulocyte % (Auto) 0.5 Neut # (Auto) Lymph # (Auto) [place] # (Auto) Eos # (Auto) Baso # (Auto) Reticulocyte # 0.02 Immature Gran # (Auto) Neutrophils % (Manual) Band Neutrophils % Lymphocytes % (Manual) Prolymphocyte % Reactive Lymphs % (Man) Monocytes % (Manual) Eosinophils % (Manual) Basophils % (Manual) Metamyelocytes % (Man) Myelocytes % (Man) Promyelocytes % (Man) Blast Cells % (Manual) Plasma Cell % (Manual) Other Cells % Nucleated RBC % Neutrophils # (Manual) Band Neutrophils # Total Absolute Neuts Lymphocytes # (Manual) Prolymphocyte # Reactive Lymphs # Total Abs Lymphocytes Monocytes # (Manual) Eosinophils # (Manual) Basophils # (Manual) Metamyelocytes # (Man) Myelocytes # (Manual) Promyelocytes # (Man) Blast Cells # (Man) Plasma Cell # (Manual) Other Cells # Nucleated RBCs # (Man) Hypersegmented Neuts Hyposegmented Neuts Hypogranular Neuts Large Granular Lymphs # Lrg Granular Lymphs Hairy Cells Smudge Cells Toxic Granulation Toxic Vacuolation Dohle Bodies Dolores Rods Hypogranular Platelets Clumped Platelets Giant Platelets Platelet Satelliting RBC Morphology Polychromasia Hypochromasia Poikilocytosis Basophilic Stippling Anisocytosis Microcytosis Macrocytosis Spherocytes Pappenheimer Bodies Sickle Cells Target Cells Tear Drop Cells Ovalocytes Stomatocytes Do-Teague Bodies Echinocytes Acanthocytes (Spur) Rouleaux RBC Agglutinates Schistocytes Sezary Cell Haptoglobin Pending Sodium Potassium Chloride Carbon Dioxide Anion Gap BUN Creatinine Est Cr Clr Drug Dosing Est GFR ( Amer) Est GFR (Non-Af Amer) BUN/Creatinine Ratio Glucose POC Glucose 101 H Calcium Total Bilirubin AST ALT Alkaline Phosphatase Total Protein Albumin Globulin Albumin/Globulin Ratio Random Vancomycin Blood Parasites ID 04/22/22 12:23 WBC RBC Hgb Hct MCV MCH MCHC RDW Std Deviation RDW Coeff of Carlita Plt Count MPV Immature Gran % (Auto) Neut % (Auto) Lymph % (Auto) [place] % (Auto) Eos % (Auto) Baso % (Auto) Reticulocyte % (Auto) Neut # (Auto) Lymph # (Auto) [place] # (Auto) Eos # (Auto) Baso # (Auto) Reticulocyte # Immature Gran # (Auto) Neutrophils % (Manual) Band Neutrophils % Lymphocytes % (Manual) Prolymphocyte % Reactive Lymphs % (Man) Monocytes % (Manual) Eosinophils % (Manual) Basophils % (Manual) Metamyelocytes % (Man) Myelocytes % (Man) Promyelocytes % (Man) Blast Cells % (Manual) Plasma Cell % (Manual) Other Cells % Nucleated RBC % Neutrophils # (Manual) Band Neutrophils # Total Absolute Neuts Lymphocytes # (Manual) Prolymphocyte # Reactive Lymphs # Total Abs Lymphocytes Monocytes # (Manual) Eosinophils # (Manual) Basophils # (Manual) Metamyelocytes # (Man) Myelocytes # (Manual) Promyelocytes # (Man) Blast Cells # (Man) Plasma Cell # (Manual) Other Cells # Nucleated RBCs # (Man) Hypersegmented Neuts Hyposegmented Neuts Hypogranular Neuts Large Granular Lymphs # Lrg Granular Lymphs Hairy Cells Smudge Cells Toxic Granulation Toxic Vacuolation Dohle Bodies Dolores Rods Hypogranular Platelets Clumped Platelets Giant Platelets Platelet Satelliting RBC Morphology Polychromasia Hypochromasia Poikilocytosis Basophilic Stippling Anisocytosis Microcytosis Macrocytosis Spherocytes Pappenheimer Bodies Sickle Cells Target Cells Tear Drop Cells Ovalocytes Stomatocytes Do-Teague Bodies Echinocytes Acanthocytes (Spur) Rouleaux RBC Agglutinates Schistocytes Sezary Cell Haptoglobin Sodium Potassium Chloride Carbon Dioxide Anion Gap BUN Creatinine Est Cr Clr Drug Dosing Est GFR ( Amer) Est GFR (Non-Af Amer) BUN/Creatinine Ratio Glucose POC Glucose 118 H Calcium Total Bilirubin AST ALT Alkaline Phosphatase Total Protein Albumin Globulin Albumin/Globulin Ratio Random Vancomycin Blood Parasites ID Diagnostic Findings Telemetry personally reviewed: Ventricular paced. Echo 04/19/2022: Normal LV systolic function. Pericardial effusion be with organized for venous material as described echo report. Pericardial effusion findings similar to previous echo on 03/27/2022. Compared to previous echo, LV systolic function has improved. Extensive records reviewed. Blood cultures noted. Chest x-ray 04/20/2022: Bilateral pleural effusions and bibasilar densities and pulmonary edema reported per Radiology. Medications Administered Current Inpatient Medications Apixaban (Apixaban 5 Mg Tablet) 5 mg PO BID LINDA Stop: 05/22/22 20:59 Clotrimazole (Clotrimazole 10 Mg Vamshi) 10 mg BUCCAL [id number] LINDA Stop: 05/02/22 11:14 Last Admin: 04/22/22 11:41 Dose: 10 mg Dextrose (Dextrose 50% 50 Ml Syringe) 25 - 50 ml IV UD PRN; Protocol PRN Reason: Hypoglycemia Protocol Stop: 05/20/22 08:27 Docusate Sodium (Docusate Sodium 100 Mg Cap) 100 mg PO BID LINDA Stop: 05/20/22 08:59 Last Admin: 04/22/22 08:54 Dose: Not Given Glucagon (Glucagon For Inj 1 Mg Vial) 1 mg SQ UD PRN; Protocol PRN Reason: Hypoglycemia Protocol Stop: 05/20/22 08:27 Glucose (Glucose 40% Gel 15 Gm Tube) 15 - 30 gm PO UD PRN; Protocol PRN Reason: Hypoglycemia Protocol Stop: 05/20/22 08:27 Glucose (Glucose 10 Tab/Tube) 4 - 8 tab PO UD PRN; Protocol PRN Reason: Hypoglycemia Treatment Stop: 05/20/22 08:27 Heparin Sodium (Beef Lung) (Heparin 10 Unit/Ml 5 Ml Flush) 5 ml FLUSH PRN PRN PRN Reason: Flush Stop: 05/21/22 00:39 Cefepime HCl 2,000 mg/ Syringe 20 mls @ 5 mls/min IV Q12 LINDA; Protocol Stop: 04/27/22 20:59 Last Admin: 04/22/22 09:11 Dose: 5 mls/min Metronidazole (Flagyl) 500 mg in 100 mls @ 100 mls/hr IV Q8H LINDA Stop: 04/27/22 12:59 Last Admin: 04/22/22 13:41 Dose: 100 mls/hr Acetaminophen (Ofirmev) 1,000 mg in 100 mls @ 400 mls/hr IV Q8H [facility] Stop: 04/24/22 08:29 Last Infusion: 04/22/22 09:08 Dose: Infused Vancomycin HCl 1,500 mg/ (Sodium Chloride) 530 mls @ 200 mls/hr IV Q12H [facility]; Protocol Stop: 05/05/22 21:59 Last Infusion: 04/22/22 13:36 Dose: Infused Dextrose (D5w) 1,000 mls @ 65 mls/hr IV .[id number] [facility] Stop: 05/21/22 19:14 Last Infusion: 04/22/22 12:39 Dose: Infused Folic Acid 1 mg/ Syringe 10 mls @ 5 mls/min IV QAM [facility] Stop: 05/22/22 09:14 Last Admin: 04/22/22 10:01 Dose: 5 mls/min Thiamine HCl 100 mg/ Syringe 10 mls @ 2 mls/min IV QAM [facility] Stop: 05/22/22 10:59 Last Admin: 04/22/22 11:41 Dose: 2 mls/min Multivitamins 10 ml/ Thiamine HCl 100 mg/ Folic Acid 1 mg/Sodium Chloride 1,011.2 mls @ 65 mls/hr IV .[id number] ONE Stop: 04/23/22 04:12 Last Admin: 04/22/22 13:41 Dose: 65 mls/hr Insulin Aspart (Insulin Aspart Per Unit) 0 units SC Q4 [facility] Stop: 05/22/22 00:00 Last Admin: 04/22/22 12:47 Dose: Not Given Lidocaine HCl (Lidocaine Viscous 2% 15 Ml Udc) 15 ml MT Q3H PRN PRN Reason: mouth sores Stop: 05/20/22 11:23 Metoprolol Succinate (Metoprolol Succ 25mg Ext Rel Tab) 25 mg PO DAILY [facility] Stop: 05/20/22 08:59 Metoprolol Tartrate (Metoprolol Tartrate 1 Mg/Ml Vial) 2.5 mg IV Q6H [facility] Stop: 05/20/22 08:59 Last Admin: 04/22/22 08:54 Dose: 2.5 mg Miscellaneous (Carbohydrates For Hypoglycemia ) 15 - 30 gm PO UD PRN PRN Reason: Hypoglycemia Protocol Stop: 05/20/22 08:27 Miscellaneous Information (Pharmacy Glycemic Mgmt Consult) 1 each N/A UD PRN; Protocol PRN Reason: Consult Stop: 05/20/22 08:30 Miscellaneous Information (Vancomycin Consult Active) 1 each N/A UD PRN PRN Reason: Consult Stop: 05/20/22 12:00 Nystatin (Nystatin Powder 15gm Btl) 1 appln EXT BID [facility]DA Stop: 05/19/22 20:59 Last Admin: 04/22/22 08:55 Dose: 1 appln Ondansetron HCl (Ondansetron Inj 2 Mg/Ml 2 Ml Vial) 4 mg IV Q6H PRN PRN Reason: Nausea Stop: 05/19/22 20:56 Triamcinolone Acetonide (Triamcinolone Acet 0.1% Orabase 5 Gm Tube) 1 appln MT BID [facility] Stop: 05/22/22 11:14 Last Admin: 04/22/22 11:41 Dose: 1 appln PG Care Time/CCT Total # of Minutes Spent Total Time Spent with Patient: Total time spent is greater than 50% in coordination of care (as documented) at patient's floor/unit and/or counseling patient: Coding Level of Care Code 66714 Initial Inpt Care Lvl 3 Diagnoses MRSA bacteremia R78.81; B95.62 Atrial fibrillation, permanent I48.21 Status post biventricular pacemaker Z95.0 Chronic heart failure with preserved ejection fraction I50.32 Cardiomyopathy I42.9 Aortic stenosis I35.0 Pericardial effusion I31.39
--- NOTE | 2022-04-22 14:29 | Hospitalist Progress Note ---
Date of Service April 22, 2022 Assessment & Plan (1) Toxic metabolic encephalopathy: Plan 76-year-old female with PMH of PAF s/p 04/03/22 pacer w/ ventricular lead and 04/04/22 AV node ablation, HTN, dyslipidemia, h/o breast cancer, recent diagnosis of diffuse, large B-cell lymphoma, and recent TIA (04/04/22) presented to ER 04/19/22 from [facility] w/ right sided facial swelling, lethargy x 1 day [employer]. She is being managed for the following: (1) Acute hypernatremia: (2) Likely Toxic metabolic encephalopathy: (3) Altered mental status: Recent admission with hyponatremia that was thought secondary to hypervolemic hyponatremia and initially treated with 1.5 L fluid restriction, Lasix 20 mg twice daily, however Lasix was later discontinued secondary to hypotension Hypernatremia likely due to poor oral intake given her parotid swelling Admitting CT head:No acute intracranial hemorrhage, no acute infarction, no acute intracranial abnormality Encephalopathy likely secondary to hyponatremia, sepsis.--> mentation improving. Plan: - Maintenance IVF (currently banana bag at 65 ml/hr), concern for volume overload though appears to be on water deficit at presentation. - Na 143, Pt not able to take PO due to oral ulcers (Rx escalated w/ clotrim torches/triamcinolone oral on top of lidocaine viscous). Supplement vitamins - BMP daily and as needed. IVF adjustment until PO intake able. One dose of iv lasix today. - Pt on 3 L O2, 1+ ble edema, continue to monitor for volume overload. - Continue w/ oral care, speech on board. (4) Sepsis POA: (5) Urinary tract infection: (6) MRSA bacteremia: (7) Parotitis: Reported right-sided facial swelling x1 day [employer]. Admitting CT soft tissue neck: Interval development of a right-sided parotitis. The right-sided lymphadenopathy has slightly improved. Mucosal thickening throughout the hypopharynx most pronounced at the right palatine tonsil persists. No significant airway compromise at this time. Multiple source of infection which includes MRSA bacteremia, parotitis, sacral wound ulcer and urinary tract infection. Admitting UA w/ UTI, UCx w/ pansensitive E. Coli Admitting Bl Cx MRSA, 04/20 Bl Cx MRSA, 04/21 and 04/22 Bl Cx no growth till date. Follow blood cultures. Admitting ECHO: echogenic mass (s/o clot/fibrinous material) w/ some mobility located in the pericardial space at the junction of the RA and RV. No evidence of vegetation. ID evaluated, agrees w/ 04/20 cefepime, flagyl and vanco. Likely cefepime and flagyl for 2 weeks. Will reach out Sunday regarding duration of Rx for MRSA bacteremia in this medically complicated patient. D/w cardio 04/22 d/t recent pacer placement and MRSA bacteremia and abn ECHO-->since pt is pacer dependent, prolonged iv atb therapy recommended, no KEEGAN d/t her comorbities and being pacer dependent. Large sacral ulcer, Gen Sx evaled, not a candidate for surgical debridement d/t multiple medical issues. Parotitis, ENT evaled, no signs of abscess formation, hence medical Mx. Watchful for infection progression/abscess formation. PICC line was removed 04/20, once bl cx is negative for 48 hours, might need another PICC line. (8) Diffuse large B-cell lymphoma: (9) Likely chemotherapy induced pancytopenia Oral Ulcers Hematuria On 04/04; patient had stroke alert for which CTA head and neck was done. Pathological bilateral cervical lymphadenopathy was seen. Patient underwent FNAC of left axillary lymph node on 04/07. She was diagnosed with diffuse large B-cell lymphoma. Oncology concerned she has rapidly progressive disease. Recent treatment with prednisone and dose of IV cyclophosphamide. Was also given Neupogen. Developed hypercalcemia and was given Zometa. CT neck on admission shows slight improvement in right-sided lymphadenopathy. RBC improving, retics 0.02, leucopenia worsening --> neutropenic precaution, daily neupogen based on WBC count Platelets improving, d/w oncology, ok to resume her anticoagulation. She has oral ulcers and hematuria likely 2/2 UTI as well. Continue to hold eliquis until gross Hematuria clears. As per oncology, patient has other acute issues to be dealt with first before cancer treatment can be reinitiated. Will obtain CT chest without contrast on nonemergent basis. (11) Hyperglycemia: Secondary to D5 and high dose steroids as part of chemotherapy. Currently on lantus and novolog. Glycemic pharmacy on board. HbA1c- 5.7%. (12) Cardiomyopathy: (13) Paroxysmal A fib: Status post AV william ablation and biventricular pacemaker placement last admission. On Eliquis. 03/27/2022 echo: EF: 45-50%, mild global hypokinesis, mild concentric LVH, mildly dilated right ventricle, severe left atrial dilation, mild , mild MR, small pericardial effusion without evidence of tamponade Current paced rhythm on EKG Patient needing IV fluid because of no p.o. intake, monitor volume status, Lasix based on clinical assessment daily Hold eliquis d/t hematuria, thrombocytopenia is improving Resume metoprolol when able. (14) Elevated troponin: Likely demand ischemia 2/2 acute illness. (15) H/o Pleural effusion: (16) Hypoxia: Recent history bilateral pleural effusions. 04/06/2022: Thoracentesis, total 1.3L removed. Cytology showed lymphocytes and reactive mesothelial cells and red blood cells, no malignant cells seen Admitting CT soft tissue neck: No change in the moderate right pleural effusion On 3L oxygen via NC. Negative rapid Covid-19 test Supplemental oxygen as needed, decrease ivf rate, one time dose lasix Monitor (17) Other Chronic Medical Conditions: HTN, h/o Breast Cancer (s/p lumpectomy 2014), Recent hospitalization w/ noted low BPs, hold BP meds, resume metoprol when able, lasix prn, hold other bp meds. DVT Px: SCDs for now, eliquis when able. Full code (per pt's poa and dtr Yanely). Dispositioncontinue to be hospitalized due to multiple infection, neutropenia, thrombocytopenia, hypernatremia. Family prefers her to go to LTAC on discharge. complex medical status/worrisome outcome. Admission and Anticipated Discharge Date Admission Date: April 19, 2022 Subjective Patient seen and examined bedside as a follow-up of altered mental status, acute hyponatremia, sepsis POA, UTI, MRSA bacteremia, parotitis and chemotherapy- induced pancytopenia on the background of recent diagnosis of diffuse large B- cell lymphoma. Patient was lying in bed, on 3 L nasal cannula oxygen, oriented x2, appears lethargic, can participate in simple conversation, denies headache or dizziness, reports mouth pain, patient does have oral ulcers likely secondary to immunosuppression, patient denies headache or dizziness, per RN no new acute events overnight. Physical Exam Physical Exam: GENERAL: lethargic and oriented x2. NAD, on 3L NC O2. appears ill/frail/weak. HEENT: No pallor, no icterus. Pupils equal, round and reactive to light. Oral mucosa moist. Rt cheek swelling, diffuse oral ulcers/tender w/ mouth opening. NECK: No JVD, Rt > Lt cervical LAD. HEART: S1 and S2 heard. Regular rate and rhythm. No murmur, no gallop. RESPIRATORY SYSTEM: Normal AP diameter. No accessory muscle use. No wheezing, no crackles. decreased breath sounds b/b. ABDOMEN: Soft, bowel sounds present, nontender, no distention. No face droop appreciated. intact eye closure and frowning. No dysarthria CENTRAL NERVOUS SYSTEM: Obeys simple commands. Moves extremities. EXTREMITIES: 1+ BLE edema, no erythema seen. No sensory loss or weakness noted. galarza in place w/ pinking urine. Results & Data Results & Data ([facility] [place]) Vital Signs (Past 12 Hours) Vital Signs Temp Pulse Pulse Resp BP BP Pulse Ox 04/22/22 11:19 36.8 C 89 17 90/58 L 96 04/22/22 07:47 36.8 C 89 16 143/63 H 96 04/22/22 03:41 88 103/67 04/22/22 03:38 36.8 C 88 18 103/67 97 O2 Del Method O2 Flow Rate 04/22/22 11:19 Nasal Cannula 3 04/22/22 07:47 Nasal Cannula 3 04/22/22 03:41 04/22/22 03:38 Nasal Cannula 3
[2022-04-22] MEDS ORDERED: SODIUM CHLORIDE 0.65% NA SOLN 45 ML (OCEAN) ONE (18:15)
[2022-04-22] MEDS: LANTUS PER UNIT CHARGE SQ SCH (20:47)
[2022-04-22] MEDS ORDERED: APIXABAN 5 MG TABLET PO SCH (21:00)
[2022-04-22] MEDS: LIDOCAINE VISCOUS 2% 15 ML UDC MT PRN (23:41)
[2022-04-23] MEDS: INSULIN ASPART PER UNIT SC SCH ×5 (00:35→18:44)
[2022-04-23] MEDS: METOPROLOL TARTRATE 1 MG/ML VIAL IV SCH ×4 (03:06→20:37)
[2022-04-23] MEDS: LIDOCAINE VISCOUS 2% 15 ML UDC MT PRN ×3 (03:07→20:45)
[2022-04-23] MEDS: metroNIDAZOLE 500 MG/100 ML BAG IV SCH ×3 (04:38→20:38)
[2022-04-23] MEDS: CLOTRIMAZOLE 10 MG TROCHE BUCCAL SCH ×5 (06:16→23:42)
[2022-04-23 08:02] LABS: Hematocrit (blood only) 30.8 % (34.1-44.9); Hemoglobin 9.5 g/dl (12.0-16.0); Mean Corpuscular Hemoglobin 30.7 pg (25.0-34.0); Mean Corpuscular Hgb Conc 30.8 g/dL (32.0-36.0); Mean Corpuscular Volume 99.7 fL (80.0-100.0); Nucleated RBC # (auto) 0.02 K/uL (0-0); Nucleated RBC % (auto) 7.7 %; Platelet Count 75 K/uL (130-400); RDW Coefficient of Variation 19.6 % (11.5-14.5); RDW Standard Deviation 69.6 fL (36.4-46.3); Red Blood Count 3.09 M/uL (3.93-5.22); White Blood Count 0.25 K/ul (4.8-10.8)
[2022-04-23 08:15] LABS: BUN Creatinine Ratio 69.4 (10-20); Calcium 7.5 mg/dl (8.5-10.1); Creatinine Clr Calc Pharmacy 120.5 ml/min; Est GFR (African American) 109.7 ml/min; Est GFR (Non-African American) 94.6 ml/min; Phosphorus 2.4 mg/dl (2.5-4.9); Potassium 3.8 mmol/L (3.5-5.1)
[2022-04-23] MEDS ORDERED: POTASSIUM PHOS 3 MMOL/1 ML INFUSION IV STA (08:27)
[2022-04-23] MEDS ORDERED: FILGRASTIM 480 MCG/1.6 ML VIAL SC ONE (08:30)
[2022-04-23] MEDS ORDERED: POTASSIUM PHOSPHATE 24 MMOL in SODIUM CHLORIDE 0.9% 500 ML IV ONE (09:00)
[2022-04-23] MEDS: ACETAMINOPHEN 1,000 MG/100 ML VIAL IV SCH ×2 (09:01→16:48)
[2022-04-23] MEDS: CEFEPIME 2,000 MG in SYRINGE 0 ML IV SCH ×2 (09:06→20:38)
[2022-04-23] MEDS: DOCUSATE SODIUM 100 MG CAP PO SCH ×2 (09:06→20:30)
[2022-04-23] MEDS: NYSTATIN POWDER 15GM BTL EXT SCH ×2 (09:06→20:39)
[2022-04-23] MEDS: FOLIC ACID 1 MG in SYRINGE 9.8 ML IV SCH (09:07)
[2022-04-23] MEDS: THIAMINE HCL 100 MG in SYRINGE 9 ML IV SCH (09:07)
[2022-04-23] MEDS: TRIAMCINOLONE ACET 0.1% ORABASE 5 GM TUBE MT SCH ×2 (09:08→20:39)
--- NOTE | 2022-04-23 10:10 | Pharmacy Report ---
Pharmacy PK ABX Note - Date of Service April 23, 2022 - Assessment and Plan Assessment 76 year old F receiving IV Vancomycin, cefepime, metronidazole for treatment of parotitis and MRSA bacteremia. Pertinent microbiologic data includes: urine culture growing gram negative baci lli (E. coli), 04/19 blood cultures (+) MRSA. Repeat blood cultures 04/20 (+) MRSA. ID consulted. Day # 4 vancomycin Plan Vancomycin * Random level this AM, 27.1mcg/mL (~8hr level), trough ~18.5. Predicted to achieve steady state AUC/BLAZE ~ 745mg/L.hr which is supratherapeutic. * Adjust vancomycin to 1250mg IV q12h * Trough tomorrow prior to 1100 dose Pharmacy will continue to follow and will adjust dose/frequency as necessary. Thank you. Pharmacy has transitioned to AUC monitoring for vancomycin. AUC/BLAZE is the preferred PK/PD target and is associated with decreased risk of nephrotoxicity compared to traditional trough targets.
[2022-04-23] MEDS: VANCOMYCIN HCL 1,250 MG in SODIUM CHLORIDE 0.9% 250 ML IV SCH ×2 (11:44→23:42)
--- NOTE | 2022-04-23 13:17 | Pharmacy Report ---
Pharmacy Glycemic Short Note 2 - Date of Service April 23, 2022 - Glycemic Short BSG Results (Last 24 hours): 04/22/22 04/22/22 04/22/22 16:26 19:58 23:40 Glucose POC Glucose 96 92 104 H 04/23/22 04/23/22 04/23/22 02:57 06:48 08:11 Glucose 96 POC Glucose 104 H 107 H 04/23/22 11:59 Glucose POC Glucose 101 H OUTPATIENT ANTIDIABETIC REGIMEN: * None * A1c 5.7% (04/20/22) ASSESSMENT: 06/23/21: * Dextrose infusion currently on hold due to concern of fluid overload * Not requiring any insulin while dextrose infusion is on hold * Continues on vancomycin, cefepime, and Flagyl 04/21/22: * Ms Robbins's BSGs remain elevated, despite changes instituted yesterday. * Lantus increased this morning for fasting BSG 255mg/dL. * Dextrose IVF is now running at 200 mL/hr. Hypernatremia continues to improve. Expect that patient's insulin needs will decrease when dextrose is reduced/stopped. Will need to follow and adjust Lantus dosing accordingly to prevent hypoglycemia. * Consider increasing Novolog coverage to q4h if BSGs do not improve. Hesitate to increase frequency for patient comfort, however, tighter glycemic control is warranted to facilitate wound/infection healing. 04/20 * 76 year old female, PMH of PAF, HTN, HL, breast CA, recent dx B-cell lymphoma presented to ER from [facility] right sided facial swelling, parotitis now on IV Unasyn, AMS, hypernatremic on IV D5. * No history of DM, A1c 5.7% today, given 5 units IV insulin yesterday in ER, and 10 units of Lantus last night, and correctional insulin Q4H since admission. * Patient remains NPO until speech eval today. * Blood sugars still > 200mg/dl today - increase basal and tighten CF/CR at this time. PLAN FOR INPATIENT GLYCEMIC CONTROL: * Basal insulin * Hold * Bolus insulin * NovoLog per scale ACHS or Q6hrs while NPO * Goal Range: Low 110 mg/dL - High 140 mg/dL * Correction Factor: 30 mg/dL/unit * Nutritional / Prandial insulin per carb ratio of 1 unit per 10 grams CHO consumed
--- NOTE | 2022-04-23 13:51 | Hospitalist Progress Note ---
Date of Service April 23, 2022 Assessment & Plan (1) Toxic metabolic encephalopathy: Plan 76-year-old female with PMH of PAF s/p 04/03/22 pacer w/ ventricular lead and 04/04/22 AV node ablation, HTN, dyslipidemia, h/o breast cancer, recent diagnosis of diffuse, large B-cell lymphoma, and recent TIA (04/04/22) presented to ER 04/19/22 from [facility] w/ right sided facial swelling, lethargy x 1 day [employer]. She is being managed for the following: (1) Acute hypernatremia: (2) Likely Toxic metabolic encephalopathy: (3) Altered mental status: Recent admission with hyponatremia that was thought secondary to hypervolemic hyponatremia and initially treated with 1.5 L fluid restriction, Lasix 20 mg twice daily, however Lasix was later discontinued secondary to hypotension Hypernatremia likely due to poor oral intake given her parotid swelling Admitting CT head:No acute intracranial hemorrhage, no acute infarction, no acute intracranial abnormality Encephalopathy likely secondary to hyponatremia, sepsis.--> resolved. Plan: - Maintenance IVF on hold for now, concern for volume overload though appears to be on water deficit at presentation. Can't use lasix much as BP drops very low. - Na WNL, Pt not able to take PO due to oral ulcers (c/w clotrim torches/triamcinolone oral on top of lidocaine viscous). Supplement vitamins. Improving oral s/s. D/w speech, likely video swallow ko. - BMP daily and as needed. IVF adjustment until PO intake able. - Pt on 4 L O2, 1 to 2+ ble edema, continue to monitor for volume overload. Hold IVF today. - Continue w/ oral care, speech on board. (4) Sepsis POA: (5) Urinary tract infection: (6) MRSA bacteremia: (7) Parotitis: Reported right-sided facial swelling x1 day [employer]. Admitting CT soft tissue neck: Interval development of a right-sided parotitis. The right-sided lymphadenopathy has slightly improved. Mucosal thickening throughout the hypopharynx most pronounced at the right palatine tonsil persists. No significant airway compromise at this time. Multiple source of infection which includes MRSA bacteremia, parotitis, sacral wound ulcer and urinary tract infection. Admitting UA w/ UTI, UCx w/ pansensitive E. Coli Admitting Bl Cx MRSA, 04/20 Bl Cx MRSA, 04/21 and 04/22 Bl Cx no growth till date. Follow blood cultures. Admitting ECHO: echogenic mass (s/o clot/fibrinous material) w/ some mobility located in the pericardial space at the junction of the RA and RV. No evidence of vegetation. ID evaluated, agrees 04/20 cefepime, flagyl and vanco. Likely cefepime and flagyl for 2 weeks. Will reach out Sunday regarding duration of Rx for MRSA bacteremia in this medically complicated patient. D/w cardio 04/22 d/t recent pacer placement and MRSA bacteremia and abn ECHO-->since pt is pacer dependent, prolonged iv atb therapy recommended, no KEEGAN d/t her comorbidities and being pacer dependent. Large sacral ulcer, Gen Sx evaled, not a candidate for surgical debridement d/t multiple medical issues. Parotitis, ENT evaled, no signs of abscess formation, hence medical Mx. Watchful for infection progression/abscess formation. PICC line was removed 04/20. (8) Diffuse large B-cell lymphoma: (9) Likely chemotherapy induced pancytopenia Oral Ulcers Hematuria On 04/04; patient had stroke alert for which CTA head and neck was done. Pathological bilateral cervical lymphadenopathy was seen. Patient underwent FNAC of left axillary lymph node on 04/07. She was diagnosed with diffuse large B-cell lymphoma. Oncology concerned she has rapidly progressive disease. Recent treatment with prednisone and dose of IV cyclophosphamide. Was also given Neupogen. Developed hypercalcemia and was given Zometa. CT neck on admission shows slight improvement in right-sided lymphadenopathy. RBC improving, retics 0.02, leucopenia still at 0.25K --> neutropenic precaution, daily neupogen based on WBC count, aim for ANC >1k for 2 days. d/w Onco. Platelets improving, d/w oncology 04/22, ok to resume her anticoagulation. She has oral ulcers and hematuria likely 2/2 UTI as well. As per oncology, patient has other acute issues to be dealt with first before cancer treatment can be reinitiated. Will obtain CT chest without contrast on nonemergent basis. (11) Hyperglycemia: Secondary to D5 and high dose steroids as part of chemotherapy. Currently on lantus and novolog. Glycemic pharmacy on board. HbA1c- 5.7%. (12) Cardiomyopathy: (13) Paroxysmal A fib: Status post AV william ablation and biventricular pacemaker placement last admission. On Eliquis. 03/27/2022 echo: EF: 45-50%, mild global hypokinesis, mild concentric LVH, mildly dilated right ventricle, severe left atrial dilation, mild , mild MR, small pericardial effusion without evidence of tamponade Current paced rhythm on EKG No po intake, hold ivf today for vol overload, monitor volume status, Lasix based on clinical assessment daily Resume eliquis, monitor Hb closely. thrombocytopenia is improving Resume metoprolol when able. (14) Elevated troponin: Likely demand ischemia 2/2 acute illness. (15) H/o Pleural effusion: (16) Hypoxia: Recent history bilateral pleural effusions. 04/06/2022: Thoracentesis, total 1.3L removed. Cytology showed lymphocytes and reactive mesothelial cells and red blood cells, no malignant cells seen Admitting CT soft tissue neck: No change in the moderate right pleural effusion On 3L oxygen via NC. Negative rapid Covid-19 test Supplemental oxygen as needed, decrease ivf rate, one time dose lasix Monitor (17) Other Chronic Medical Conditions: HTN, h/o Breast Cancer (s/p lumpectomy 2014), Recent hospitalization w/ noted low BPs, hold BP meds, resume metoprol when able, lasix prn, hold other bp meds. DVT Px: SCDs for now, eliquis when able. Full code (per pt's poa and dtr Yanely). Dispositioncontinue to be hospitalized due to multiple infection, neutropenia, thrombocytopenia, hypernatremia. Family prefers her to go to LTAC on discharge. complex medical status/worrisome outcome. 04/22: pt's dtr yanely given phone call, updated in detail, answered all her questions to her satisfaction. Admission and Anticipated Discharge Date Admission Date: April 19, 2022 Subjective Patient seen and examined bedside as a follow-up of altered mental status, acute hyponatremia, sepsis POA, UTI, MRSA bacteremia, parotitis and chemotherapy- induced pancytopenia on the background of recent diagnosis of diffuse large B- cell lymphoma. Patient was lying in bed, on 4 L nasal cannula oxygen, oriented x3, appears more alert today, reports improvement in mouth sore, denies headache or dizziness, patient does have oral ulcers likely secondary to immunosuppression, patient denies headache or dizziness, per RN no new acute events overnight. Physical Exam Physical Exam: GENERAL: Alert and oriented x3. NAD, on 4L NC O2. appears ill/frail/weak. HEENT: No pallor, no icterus. Pupils equal, round and reactive to light. Oral mucosa moist. Rt cheek swelling, diffuse oral ulcers/tender w/ mouth opening --> improving. NECK: No JVD, Rt > Lt cervical LAD. HEART: S1 and S2 heard. Regular rate and rhythm. No murmur, no gallop. RESPIRATORY SYSTEM: Normal AP diameter. No accessory muscle use. No wheezing, no crackles. decreased breath sounds b/b. ABDOMEN: Soft, bowel sounds present, nontender, no distention. No face droop appreciated. intact eye closure and frowning. No dysarthria CENTRAL NERVOUS SYSTEM: Obeys simple commands. Moves extremities. EXTREMITIES: 1 to 2+ BLE edema, no erythema seen. No sensory loss or weakness noted. galarza in place w/ dark urine. Results & Data Results & Data ([facility]) Vital Signs (Past 12 Hours) Vital Signs Temp Pulse Pulse Resp BP BP Pulse Ox 04/23/22 12:00 36.9 C 89 19 118/72 99 04/23/22 10:29 04/23/22 09:17 88 108/71 04/23/22 08:15 36.7 C 89 21 111/70 94 04/23/22 03:06 89 85/58 L 04/23/22 03:02 36.4 C L 89 19 85/58 L 93 O2 Del Method O2 Flow Rate 04/23/22 12:00 Nasal Cannula 4 04/23/22 10:29 Nasal Cannula 4 04/23/22 09:17 04/23/22 08:15 Nasal Cannula 4 04/23/22 03:06 04/23/22 03:02 Nasal Cannula 3
[2022-04-23] MEDS: APIXABAN 5 MG TABLET PO SCH (20:30)
[2022-04-23] MEDS: LANTUS PER UNIT CHARGE SQ SCH (20:47)
[2022-04-23] MEDS ORDERED: ALBUT/IPRATROP 3MG/0.5MG NEB 3 ML VIAL NEB STA (21:09)
[2022-04-23] MEDS ORDERED: FUROSEMIDE INJ 20 MG/2 ML VIAL IV ONE (21:13)
[2022-04-23] MEDS ORDERED: ALBUMIN 25% 100 mL 25 GM/100 ML VIAL IV ONE (21:13)
[2022-04-23 21:40] LABS: Base Excess ABG -0.6 mEq/L (-9-1.8); HCO3 ABG 28 mmol/L (19-24); Oxygen Saturation ABG > 100.0 % (90-95); PCO2 ABG 60 mmHg (35-46); PO2 ABG 173 mmHg (80-95); pH ABG 7.27 (7.35-7.45)
[2022-04-23] MEDS: POTASSIUM CHLORIDE / WTR 10 MEQ/100 ML PLCT IV SCH ×2 (21:45→22:53)
[2022-04-23 22:02] LABS: Allen Test Pos (Pos)
[2022-04-24] MEDS: INSULIN ASPART PER UNIT SC SCH ×7 (00:06→23:49)
[2022-04-24 00:26] LABS: Base Excess ABG 0.6 mEq/L (-9-1.8); HCO3 ABG 27 mmol/L (19-24); PCO2 ABG 52 mmHg (35-46); PO2 ABG 104 mmHg (80-95); pH ABG 7.33 (7.35-7.45)
[2022-04-24 00:36] LABS: Allen Test POS (Pos)
[2022-04-24] MEDS: ACETAMINOPHEN 1,000 MG/100 ML VIAL IV SCH (01:11)
[2022-04-24] MEDS: LIDOCAINE VISCOUS 2% 15 ML UDC MT PRN ×2 (03:12→21:28)
[2022-04-24] MEDS: METOPROLOL TARTRATE 1 MG/ML VIAL IV SCH ×4 (03:12→21:29)
[2022-04-24] MEDS: metroNIDAZOLE 500 MG/100 ML BAG IV SCH ×3 (04:38→21:29)
[2022-04-24] MEDS: CLOTRIMAZOLE 10 MG TROCHE BUCCAL SCH ×5 (06:06→23:09)
[2022-04-24 06:43] LABS: Hematocrit (blood only) 29.6 % (34.1-44.9); Hemoglobin 9.1 g/dl (12.0-16.0); Mean Corpuscular Hemoglobin 30.8 pg (25.0-34.0); Mean Corpuscular Hgb Conc 30.7 g/dL (32.0-36.0); Mean Corpuscular Volume 100.3 fL (80.0-100.0); Mean Platelet Volume 11.4 fL (9.4-12.3); Nucleated RBC # (auto) 0.02 K/uL (0-0); Nucleated RBC % (auto) 1.7 %; Platelet Count 94 K/uL (130-400); RDW Coefficient of Variation 19.5 % (11.5-14.5); RDW Standard Deviation 69.3 fL (36.4-46.3); Red Blood Count 2.95 M/uL (3.93-5.22); White Blood Count 1.17 K/ul (4.8-10.8)
[2022-04-24 06:55] LABS: BUN Creatinine Ratio 70.2 (10-20); Calcium 7.5 mg/dl (8.5-10.1); Creatinine Clr Calc Pharmacy 103.9 ml/min; Est GFR (African American) 104.4 ml/min; Phosphorus 2.8 mg/dl (2.5-4.9); Potassium 4.2 mmol/L (3.5-5.1)
[2022-04-24 07:04] LABS: Basophilic Stippling 1+; Lymphocytes # (manual) 0.12 K/uL (1.2-3.4); Lymphocytes % (manual) 10 %; Monocytes # (manual) 0.14 K/uL (0.24-0.82); Monocytes % (manual) 12 %; Neutrophils # (manual) 0.91 K/uL (1.4-6.5); Neutrophils % (manual) 78 %
--- NOTE | 2022-04-24 07:27 | CT Scan Report ---
CT SCAN OF THE BRAIN WITHOUT IV CONTRAST CLINICAL HISTORY: Lethargy. COMPARISON STUDY: CT of the brain dated 04/19/2022. TECHNIQUE: Unenhanced axial CT scan of the brain is performed from the vertex to the skull base. A do se lowering technique was utilized adhering to the principles of ALARA. CT DOSE: 614.27 mGy.cm FINDINGS: Brain parenchyma: There is age-related involutional change noting mild to moderate subcortical and pe riventricular microangiopathic disease. A focus of left cerebellar encephalomalacia is consistent wit h a remote insult. There is no hemorrhage, mass effect, or evidence of acute territorial ischemia by CT criteria. Sanchez-white matter differentiation is preserved. No extra-axial fluid collection is seen. Ventricles, sulci, cisterns: Prominent secondary to involutional change. Intracranial vasculature: There is atherosclerotic calcification of the cavernous carotid and vertebr al arteries. Calvarium: Unremarkable. Sinuses and mastoids: There is moderate mucosal thickening in the left sphenoid sinus. Mild mucosal t hickening is present in the left ethmoid sinuses. The remaining paranasal sinuses are clear. The mast oid air cells are well pneumatized. Orbits: The bony orbits are grossly intact. IMPRESSION: There is no hemorrhage, mass effect, or evidence of acute territorial ischemia by CT alvino humphrey. ACT 112: Negative or not required by law. Electronically signed by: Burke Hernandez M.D. 04/24/2022 7:25 AM
[2022-04-24] MEDS ORDERED: FILGRASTIM 480 MCG/1.6 ML VIAL SC ONE (08:00)
--- NOTE | 2022-04-24 08:23 | XRay Report ---
SINGLE VIEW CHEST CLINICAL HISTORY: Hypoxia. FINDINGS: An AP, portable, upright chest radiograph is compared to study dated 04/20/2022 and correla allen with chest CT dated 04/06/2022. A right PICC line has been removed. A 2-lead cardiac pacemaker is unchanged in position and partially obscures the left lower chest. The heart is enlarged noting ather osclerotic calcification of the thoracic aorta. There is pulmonary vascular congestion and interstiti al edema. There are layering pleural effusions with bibasilar consolidation. No pneumothorax is seen. The skeletal structures are osteopenic. There are healed right-sided rib fractures. IMPRESSION: 1. Cardiomegaly with evidence of congestive failure and pulmonary edema. This is similar to previous. 2. Layering pleural effusions and bibasilar consolidation. ACT 112: Negative or not required by law. Electronically signed by: Burke Hernandez M.D. 04/24/2022 8:20 AM
[2022-04-24] MEDS: DOCUSATE SODIUM 100 MG CAP PO SCH ×2 (08:43→20:22)
[2022-04-24] MEDS: APIXABAN 5 MG TABLET PO SCH (08:43)
[2022-04-24] MEDS: CEFEPIME 2,000 MG in SYRINGE 0 ML IV SCH ×2 (09:15→20:13)
[2022-04-24] MEDS: FOLIC ACID 1 MG in SYRINGE 9.8 ML IV SCH (09:16)
[2022-04-24] MEDS: THIAMINE HCL 100 MG in SYRINGE 9 ML IV SCH (09:17)
[2022-04-24] MEDS: TRIAMCINOLONE ACET 0.1% ORABASE 5 GM TUBE MT SCH ×2 (09:17→21:30)
[2022-04-24] MEDS: NYSTATIN POWDER 15GM BTL EXT SCH ×2 (09:17→21:30)
[2022-04-24] MEDS ORDERED: VANCOMYCIN LEVEL ONE (10:00)
[2022-04-24] MEDS: VANCOMYCIN HCL 1,250 MG in SODIUM CHLORIDE 0.9% 250 ML IV SCH (11:25)
[2022-04-24] MEDS: DAPTOmycin 775 MG in SYRINGE 0 ML IV SCH (12:34)
[2022-04-24] MEDS ORDERED: DEXTROSE 10% 1,000 ML IV PRN (13:57)
--- NOTE | 2022-04-24 14:07 | XRay Report ---
XR chest 1V portable CLINICAL HISTORY: f/u, fluid overload status COMPARISON STUDY: Chest CT April 06, 2022. Chest radiograph April 23, 2022. FINDINGS: Left subclavian pacer is in place. Extensive opacification of the left hemithorax with volu me loss has progressed. There are bilateral pleural effusions with associated airspace opacities, gre ater on the left. Pulmonary edema is again noted. There is no pneumothorax. IMPRESSION: 1. Near complete opacification of the left lung which has progressed with volume loss. This could ref lect pneumonia or atelectasis with associated pleural effusion. 2. Persistent pulmonary edema. 3. No significant change in a right pleural effusion with associated opacity. ACT 112: Negative or not required by law. Electronically signed by: Deuce Wray M.D. 04/24/2022 2:06 PM
[2022-04-24] MEDS ORDERED: ENOXAPARIN SQ SCH (14:45)
[2022-04-24] MEDS ORDERED: FUROSEMIDE INJ 20 MG/2 ML VIAL IV ONE (14:50)
--- NOTE | 2022-04-24 14:54 | Hospitalist Progress Note ---
Date of Service April 24, 2022 Assessment & Plan (1) Toxic metabolic encephalopathy: Plan 76-year-old female with PMH of PAF s/p 04/03/22 pacer w/ ventricular lead and 04/04/22 AV node ablation, HTN, dyslipidemia, h/o breast cancer, recent diagnosis of diffuse, large B-cell lymphoma, and recent TIA (04/04/22) presented to ER 04/19/[address] 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 She is being managed for the following: (1) Acute hypernatremia: (2) Likely Toxic metabolic encephalopathy: (3) Altered mental status: Recent admission with hyponatremia that was thought secondary to hypervolemic hyponatremia and initially treated with 1.5 L fluid restriction, Lasix 20 mg twice daily, however Lasix was later discontinued secondary to hypotension Hypernatremia likely due to poor oral intake given her parotid swelling Admitting CT head:No acute intracranial hemorrhage, no acute infarction, no acute intracranial abnormality Encephalopathy likely secondary to hyponatremia, sepsis.--> resolved. Plan: - Cautious use of IVF, Na is up today. Will use lasix today, caution w/ lasix as she runs soft bp. - Na 146 today, Pt not able to take PO due to oral ulcers (c/w clotrim torches/triamcinolone oral on top of lidocaine viscous). Supplement vitamins. Improving oral s/s. D/w speech, likely video swallow ko. Plan for PPN ko until speech clears her for diet. - BMP daily and as needed. IVF adjustment until PO intake able. - Pt on 4 L O2 vs CPAP, 1 to 2+ ble edema, Pt w/ fluid in the lungs and legs, chance of deterioration high; family aware, anticipate icu transfer if w/ deterioration. - Continue w/ oral care, speech on board. 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 Admitting CT soft tissue neck: Interval development of a right-sided parotitis. The right-sided lymphadenopathy has slightly improved. Mucosal thickening throughout the hypopharynx most pronounced at the right palatine tonsil persists. No significant airway compromise at this time. Multiple source of infection which includes MRSA bacteremia, parotitis, sacral wound ulcer and urinary tract infection. Admitting UA w/ UTI, UCx w/ pansensitive E. Coli Admitting Bl Cx MRSA, 04/20 Bl Cx MRSA, 04/21 and 04/22 Bl Cx no growth till date. Follow blood cultures. Admitting ECHO: echogenic mass (s/o clot/fibrinous material) w/ some mobility located in the pericardial space at the junction of the RA and RV. No evidence of vegetation. ID evaluated, agrees w/ 04/20 cefepime, flagyl and vanco. cefepime and flagyl for 2 weeks. Re-d/w ID 04/24 in detail w/ new updates -->> for MRSA infection on the background that pacer can't be removed -->> DC vanco, start Dapto and rifampin for total of 6 weeks, CPK on 04/24 is 22, f/u cbc/cmp/cpk weekly, after 6 weeks of iv atb follow w/ suppressive therapy w/ doxy or bactrim, likely lifelong if PPM stays in. Since rifampin has dr-dr interaction w/ heidi, it will be changed to lovenox until she can take PO, when it will be changed to warfarin. Will start on dapto and rifampin today. Family is made aware about all these above and are agreeable. D/w cardio 04/22 d/t recent pacer placement and MRSA bacteremia and abn ECHO-->prolonged iv atb therapy recommended, no KEEGAN d/t her comorbidities and being pacer dependent. Large sacral ulcer, Gen Sx evaled, not a candidate for surgical debridement d/t multiple medical issues. Parotitis, ENT evaled, no signs of abscess formation, hence medical Mx. Watchful for infection progression/abscess formation. Cefepime and falgyl for 14 days total. PICC line was removed 04/20, then midline placed 04/20; Bl Cx neg from 04/21, will remove the current line and get another mid or picc line, pt will need 2 iv atb x 6 wks (rifampin can be changed to po once patient is able to) and PPN transiently. (8) Diffuse large B-cell lymphoma: (9) Likely chemotherapy induced pancytopenia Oral Ulcers Hematuria On 04/04; patient had stroke alert for which CTA head and neck was done. Pathological bilateral cervical lymphadenopathy was seen. Patient underwent FNAC of left axillary lymph node on 04/07. She was diagnosed with diffuse large B-cell lymphoma. Oncology concerned she has rapidly progressive disease. Recent treatment with prednisone and dose of IV cyclophosphamide. Was also given Neupogen. Developed hypercalcemia and was given Zometa. CT neck on admission shows slight improvement in right-sided lymphadenopathy. RBC about stable, leucopenia slightly improved --> neutropenic precaution, daily neupogen based on WBC count, aim for ANC >1k for 2 days. d/w Onco 04/23. Platelets improving, d/w oncology 04/22, ok to resume her anticoagulation. She has oral ulcers and hematuria likely 2/2 UTI as well. As per oncology, patient has other acute issues to be dealt with first before cancer treatment can be reinitiated. Will obtain CT chest without contrast on nonemergent basis. (11) Hyperglycemia: Secondary to D5 and high dose steroids as part of chemotherapy. Currently on lantus and novolog. Glycemic pharmacy on board. HbA1c- 5.7%. (12) Cardiomyopathy: (13) Paroxysmal A fib: Status post AV william ablation and biventricular pacemaker placement last admission. On Eliquis. 03/27/2022 echo: EF: 45-50%, mild global hypokinesis, mild concentric LVH, mildly dilated right ventricle, severe left atrial dilation, mild , mild MR, small pericardial effusion without evidence of tamponade Current paced rhythm on EKG No po intake, gentle ivf today, monitor volume status, Lasix based on clinical assessment daily, one time dose today. Lovenox 04/24, then warfarin when patient is able to (eliquis has interaction w/ rifampin which patient is started on 04/24) Resume metoprolol when able. (14) Elevated troponin: Likely demand ischemia 2/2 acute illness. (15) H/o Pleural effusion: (16) Hypoxia: Pulmonary edema: multipfactorial, h/o heart failure, poor nutrition, need for IVF w/ hypernatremia Recent history bilateral pleural effusions. 04/06/2022: Thoracentesis, total 1.3L removed. Cytology showed lymphocytes and reactive mesothelial cells and red blood cells, no malignant cells seen Admitting CT soft tissue neck: No change in the moderate right pleural effusion Negative rapid Covid-19 test Supplemental oxygen as needed, decrease ivf rate, one time dose lasix Monitor, needed /CPAP last evening, CXR w/ pul edema (17) Other Chronic Medical Conditions: HTN, h/o Breast Cancer (s/p lumpectomy 2014), Recent hospitalization w/ noted low BPs, hold BP meds, resume metoprol when able, lasix prn, hold other bp meds. DVT Px: SCDs for now, eliquis when able. Full code (per pt's poa and dtr Yanely). Dispositioncontinue to be hospitalized due to multiple infection, neutropenia, thrombocytopenia, hypernatremia. Family prefers her to go to LTAC on discharge. complex medical status/worrisome outcome. 04/22: pt's dtr yanely given phone call, updated in detail, answered all her questions to her satisfaction. 04/24: Family meeting w/ Pt's dtr and POA Latonya Luoson, Curt RobbinsTREY; Updated on the current status of the patient in detail. Mentioned the need for ivf and lasix for her hypernatremia, and made them aware pt not being able to tolerate lasix due to low bp and ivfluid d/t fluid retention. Explained the complexity of the delicate medical condition of the patient. Family wants everything to be done including intubation but accepts the fact that she is in a very serious condition. Made them aware that the patient expressed that "it is her time to go" to me in the morning, RN was present. Then, she mentioned she will talk with the family. Encouraged pt's family to discuss about goals of care w/ patient and suggested i can be reached out any time or i will follow with the patient and with them if needed. Answered all their questions to their satisfaction. Plan for PPN ko until pt able to eat po. Low threshold for icu transfer. Admission and Anticipated Discharge Date Admission Date: April 19, 2022 Subjective Patient seen and examined bedside as a follow-up of altered mental status, acute hyponatremia, sepsis POA, UTI, MRSA bacteremia, parotitis and chemotherapy- induced pancytopenia on the background of recent diagnosis of diffuse large B- cell lymphoma. Patient was lying in bed, on CPAP in early AM then on 4L NC O2 later in AM, needed to be on BPAP due to lethargy and unable to maintain saturation, oriented x3, appears more alert after BPAP was taken off later in the day, reports i mprovement in mouth sore, denies headache or dizziness, patient does have oral ulcers likely secondary to immunosuppression which is now improving, patient denies headache or dizziness. Physical Exam Physical Exam: GENERAL: Alert and oriented x3. NAD, on 4L NC O2. appears ill/frail/weak. HEENT: No pallor, no icterus. Pupils equal, round and reactive to light. Oral mucosa moist. Rt cheek swelling, diffuse oral ulcers/tender w/ mouth opening --> improving. NECK: No JVD, Rt > Lt cervical LAD. HEART: S1 and S2 heard. Regular rate and rhythm. No murmur, no gallop. RESPIRATORY SYSTEM: Normal AP diameter. No accessory muscle use. No wheezing, b/b crackles. ABDOMEN: Soft, bowel sounds present, nontender, no distention. No face droop appreciated. intact eye closure and frowning. No dysarthria CENTRAL NERVOUS SYSTEM: Obeys simple commands. Moves extremities. EXTREMITIES: 1 to 2+ BLE edema, no erythema seen. No sensory loss or weakness noted. galarza in place w/ dark urine. Results & Data Results & Data ([facility]) Vital Signs (Past 12 Hours) Vital Signs Temp Pulse Pulse Resp BP BP Pulse Ox 04/24/22 12:07 36.7 C 89 21 109/70 91 04/24/22 08:00 04/24/22 07:00 90 04/24/22 07:19 36.6 C 89 20 100/70 98 04/24/22 07:17 90 24 92 04/24/22 04:13 26 H 95 04/24/22 03:12 90 93/65 L 04/24/22 03:09 36.8 C 90 93/65 L 95 O2 Del Method O2 Flow Rate FiO2 04/24/22 12:07 Nasal Cannula 4 04/24/22 08:00 BiPAP 35 04/24/22 07:00 04/24/22 07:19 BiPAP 04/24/22 07:17 35 04/24/22 04:13 35 04/24/22 03:12 04/24/22 03:09 BiPAP 35
[2022-04-24] MEDS ORDERED: rifAMPin 300 MG in DEXTROSE 5% 500 ML IV SCH (16:00)
[2022-04-24] MEDS: DEXTROSE 5% 1,000 ML IV SCH (16:09)
[2022-04-24] MEDS: ENOXAPARIN INJ 120 MG/0.8 ML SYR SQ SCH (16:20)
[2022-04-24] MEDS: RIFAMPIN IV SCH (16:20)
[2022-04-24] MEDS: SODIUM CHLORIDE 0.9% IV SCH (16:20)
[2022-04-24] MEDS: FUROSEMIDE 100 MG in DEXTROSE 5% 90 ML IV SCH (19:36)
[2022-04-24] MEDS: ALBUMIN 25% 100 mL 25 GM/100 ML VIAL IV SCH ×2 (19:38→23:07)
--- NOTE | 2022-04-24 20:13 | Consultation Report ---
NEPHROLOGY CONSULTATION NOTE DATE OF SERVICE: 04/24/2022. REASON FOR CONSULTATION: Hypernatremia with extreme fluid overload. HISTORY OF PRESENT ILLNESS: The patient has a very complicated medical history and has been in the ospital now for about 6 days. She was discharged from the hospital on 04/18/2022 and was readmitted by 04/19/2022. This admission, she was transferred from [facility] because of right-sided faci al swelling. She was recently diagnosed with B-cell lymphoma, aggressive type during her previous ho spitalization. Her previous admission was very complicated with what started from AFib with RVR with fluid overload, hypernatremia, pulmonary edema. She had profound hypertension for many days. Renal function initially was bad, but eventually improved. By the time she was discharged, renal function was normal with a completely normal creatinine. During the latter days of the hospital admission, s he was treated with prednisone and IV cyclophosphamide and was also given Neupogen. She also develop ed hypercalcemia and was given Zometa. At this point, the patient is full code and everything possibl e to be done. Since being admitted at this time, she has been seen by Palliative Medicine as well as Surgery, ENT, Oncology as well as Infectious Disease. She was found to have bacteremia, for which s he is getting antibiotics. The last positive blood culture is from 04/20/2022 with MRSA bacteremia. Sodium on admission was 153, but with some IV fluid, it did drop down to 142, but now it is rising s lowly again. She has massive anasarca. She is not making a lot of urine. At this point in time, she is not getting IV fluid nor any diuretics. As per oncology notes, she probably has rapidly progress geovani disease. PAST MEDICAL HISTORY AND PAST SURGICAL HISTORY: As detailed in HPI. ALLERGIES: None. MEDICATIONS: Home medication list was reviewed in detail. SOCIAL HISTORY: Includes no smoking, , lives with spouse. Family is very involved in her hea lthcare, especially one of her daughters. PHYSICAL EXAMINATION: GENERAL: Elderly white female who is very weak and barely able to open eyes or talk. VITAL SIGNS: Blood pressure is 99/64, pulse rate 90, temperature 36.8, 95% on 4 liters nasal cannula . HEENT: Mucous membrane is moist. NECK: Supple. Jugular venous distention could not be assessed. CHEST: Bilateral decreased breath sounds, poor inspiratory effort. CARDIOVASCULAR: S1 and S2, regular. Systolic murmur heard. ABDOMEN: Soft, nontender. Abdominal wall edema. EXTREMITIES: Show 3-4+ edema. NEUROLOGIC: Very slow and weak speech. LABORATORY TEST: Blood work from this morning shows WBC count 1.17, hemoglobin 9.1, platelet count 9 4,000. Sodium 146, potassium 4.2, chloride 111, bicarbonate 29, BUN 40, creatinine 0.57, calcium is 7.5. Chest x-ray, persistent pulmonary edema, significant pleural effusion. ASSESSMENT AND PLAN: A 76-year-old female with recently diagnosed aggressive B-cell lymphoma as well as multiple cardiac problems, now admitted with MRSA bacteremia and multiple organ involvement. 1. Hypernatremia. The patient is not really eating or drinking much, so there is some intravascular volume deficit. However, she has massive anasarca, pleural effusion, pulmonary edema, signifying fl uid overload and does need to be diuresed. It is also worth noting that in patients with very aggres sive advanced cancer, they can have massive anasarca, which did not respond too well with diuretics. At this point, I would like to give her Lasix drip at 10 mg an hour, also give hydrochlorothiazide 25 twice daily for lowering serum sodium. She can have some free water either as D5 water or through t he enteral route when she is allowed. I believe the primary problem at this point is aggressive lymph lucien, which is most likely causing the massive anasarca. Palliative Medicine, Oncology, Cardiology, I nfectious Disease, and ENT consultation notes were reviewed in detail. Case was discussed with the gabriela sol. Thank you very much for the consult. Job ID: [id number]
[2022-04-24] MEDS: LANTUS PER UNIT CHARGE SQ SCH (20:31)
[2022-04-25] MEDS: METOPROLOL TARTRATE 1 MG/ML VIAL IV SCH ×4 (02:56→20:10)
[2022-04-25] MEDS: INSULIN ASPART PER UNIT SC SCH ×6 (03:31→23:39)
[2022-04-25] MEDS: RIFAMPIN IV SCH (03:37)
[2022-04-25] MEDS: SODIUM CHLORIDE 0.9% IV SCH (03:37)
[2022-04-25] MEDS: metroNIDAZOLE 500 MG/100 ML BAG IV SCH ×3 (04:09→20:04)
[2022-04-25] MEDS: ALBUMIN 25% 100 mL 25 GM/100 ML VIAL IV SCH ×4 (05:21→23:13)
[2022-04-25] MEDS: LIDOCAINE VISCOUS 2% 15 ML UDC MT PRN (05:24)
[2022-04-25] MEDS: CLOTRIMAZOLE 10 MG TROCHE BUCCAL SCH ×5 (05:42→23:13)
[2022-04-25] MEDS ORDERED: TPN/PPN CONSULT PHARMACY PRN (07:00)
[2022-04-25 07:32] LABS: Hematocrit (blood only) 27.5 % (34.1-44.9); Hemoglobin 8.2 g/dl (12.0-16.0); White Blood Count 3.14 K/ul (4.8-10.8)
[2022-04-25 07:44] LABS: BUN Creatinine Ratio 61.8 (10-20); Calcium 7.8 mg/dl (8.5-10.1); Creatinine Clr Calc Pharmacy 86.4 ml/min; Est GFR (African American) 98.5 ml/min; Magnesium 2.4 mg/dl (1.7-2.4); Phosphorus 2.3 mg/dl (2.5-4.9)
[2022-04-25 08:15] LABS: Anisocytosis Present; Dohle Bodies 1+; Lymphocytes # (manual) 0.19 K/uL (1.2-3.4); Lymphocytes % (manual) 6 %; Mean Corpuscular Hemoglobin 30.5 pg (25.0-34.0); Mean Corpuscular Hgb Conc 29.8 g/dL (32.0-36.0); Mean Corpuscular Volume 102.2 fL (80.0-100.0); Mean Platelet Volume 11.4 fL (9.4-12.3); Metamyelocytes # (manual) 0.13 K/uL (0-0); Metamyelocytes % (manual) 4 %; Monocytes # (manual) 0.06 K/uL (0.24-0.82); Monocytes % (manual) 2 %; Neutrophils # (manual) 2.76 K/uL (1.4-6.5); Neutrophils % (manual) 88 %; Nucleated RBC # (auto) 0.09 K/uL (0-0); Nucleated RBC % (auto) 2.9 %; Platelet Count 109 K/uL (130-400); Polychromasia 1+; RDW Coefficient of Variation 20.1 % (11.5-14.5); RDW Standard Deviation 72.9 fL (36.4-46.3); Red Blood Count 2.69 M/uL (3.93-5.22); Toxic Granulation 1+
[2022-04-25] MEDS ORDERED: SODIUM PHOSPHATE 3 MMOL/1 ML INFUSION IV STA (08:32)
[2022-04-25] MEDS ORDERED: POTASSIUM PHOS 3 MMOL/1 ML INFUSION IV STA (08:35)
[2022-04-25] MEDS ORDERED: POTASSIUM PHOSPHATE 30 MMOL in SODIUM CHLORIDE 0.9% 500 ML IV ONE (09:00)
[2022-04-25] MEDS: DOCUSATE SODIUM 100 MG CAP PO SCH ×2 (09:37→20:05)
--- NOTE | 2022-04-25 09:57 | XRay Report ---
SINGLE VIEW CHEST CLINICAL HISTORY: PICC placement. FINDINGS: 2 AP, portable, upright chest radiographs are compared to study dated 04/24/2022 and correl ated with chest CT dated 04/06/2022. A right PICC line has been placed. The tip of the catheter projec ts over the cavoatrial junction. A right PICC line has been removed. A 2-lead cardiac pacemaker is un changed in position and partially obscures the left mid chest. The heart is enlarged noting atheroscl erotic calcification of the thoracic aorta. There is pulmonary vascular congestion and interstitial e tessa. There are layering pleural effusions with bibasilar consolidation. No pneumothorax is seen. The skeletal structures are osteopenic. There are healed right-sided rib fractures. IMPRESSION: 1. A right sided PICC line has been placed as above. 2. Cardiomegaly with evidence of congestive failure and pulmonary edema. The left upper lobe has mode stly cleared as compared to yesterday. 3. Layering pleural effusions and bibasilar consolidation. ACT 112: Negative or not required by law. Electronically signed by: Burke Hernandez M.D. 04/25/2022 9:56 AM
[2022-04-25] MEDS: CEFEPIME 2,000 MG in SYRINGE 0 ML IV SCH ×2 (10:31→20:05)
[2022-04-25] MEDS: DAPTOmycin 775 MG in SYRINGE 0 ML IV SCH (10:32)
[2022-04-25] MEDS: ENOXAPARIN INJ 120 MG/0.8 ML SYR SQ SCH ×2 (10:33→20:05)
--- NOTE | 2022-04-25 10:42 | Nephrology Progress Note ---
Date of Service April 25, 2022 Assessment & Plan Admission and Anticipated Discharge Date Admission Date: April 19, 2022 Subjective S--very weak. massive edema. Not eating. PHYSICAL EXAMINATION: GENERAL: Elderly white female who is very weak and barely able to open eyes or talk. HEENT: Mucous membrane is moist. NECK: Supple. Jugular venous distention could not be assessed. CHEST: Bilateral decreased breath sounds, poor inspiratory effort. CARDIOVASCULAR: S1 and S2, regular. Systolic murmur heard. ABDOMEN: Soft, nontender. Abdominal wall edema. EXTREMITIES: Show 3-4+ edema. NEUROLOGIC: Very slow and weak speech. LABORATORY TEST: na 148. ASSESSMENT AND PLAN: A 76-year-old female with recently diagnosed aggressive B- cell lymphoma as well as multiple cardiac problems, now admitted with MRSA bacteremia and multiple organ involvement. 1. Hypernatremia. The patient is not really eating or drinking much, so there is some intravascular volume deficit. However, she has massive anasarca, pleural effusion, pulmonary edema, signifying fluid overload and does need to be diuresed. It is also worth noting that in patients with very aggressive advanced cancer, they can have massive anasarca, which does not respond too well with diuretics. At this point, I would like to give her Lasix drip at 5 mg an hour. Continue 25% alb q6hr. unlikely to work She can have some free water either as D5 water or through the enteral route when she is allowed. I guess there is plan for TPN I believe the primary problem at this point is aggressive lymphoma, which is most likely causing the massive anasarca. Palliative Medicine, Oncology, Cardiology, Infectious Disease, and ENT consultation notes were reviewed in detail. Case was discussed with the primary team. Results & Data ([facility]) Vital Signs (Past 12 Hours) Vital Signs Temp Pulse Pulse Resp BP BP Pulse Ox 04/25/22 10:33 90 115/75 04/25/22 07:53 36.5 C 90 22 100/61 98 04/25/22 02:56 89 98/73 L 04/25/22 02:48 36.8 C 89 18 100/89 100 04/24/22 23:00 90 04/24/22 23:15 84 22 99 04/24/22 22:57 36.8 C 89 22 101/70 99 O2 Del Method O2 Flow Rate FiO2 04/25/22 10:33 11/22/22 07:53 Nasal Cannula 2 04/25/22 02:56 04/25/22 02:48 BiPAP 04/24/22 23:00 04/24/22 23:15 45 04/24/22 22:57 BiPAP
[2022-04-25] MEDS: NYSTATIN POWDER 15GM BTL EXT SCH ×2 (10:43→20:07)
[2022-04-25] MEDS: THIAMINE HCL 100 MG in SYRINGE 9 ML IV SCH (11:04)
[2022-04-25] MEDS: FOLIC ACID 1 MG in SYRINGE 9.8 ML IV SCH (11:04)
[2022-04-25] MEDS: TRIAMCINOLONE ACET 0.1% ORABASE 5 GM TUBE MT SCH ×2 (12:21→20:07)
--- NOTE | 2022-04-25 13:05 | Fluoroscopy Report ---
FL video swallow CLINICAL HISTORY: 76 years-old Female with assess for aspiration. Dysphasia with possible aspiration TECHNIQUE: Video fluoroscopic evaluation of swallowing was performed in the AP and lateral projection s by the speech pathology staff. The patient is fed nectar-thick and thin liquid, mildly thick and pu dding consistencies. FLUOROSCOPY TIME: 3.5 minutes. COMPARISON STUDY: Video swallow study 04/06/2022 FINDINGS: There is aspiration and cough with thin liquid barium. No additional aspiration identified throughout the study. Mild residue within the vallecula. Spondylitic spurring of the cervical spine. IMPRESSION: 1. Aspiration with thin liquid barium. 2. Please see the speech pathologist report for detailed findings and recommendations. ACT 112: Negative or not required by law. Electronically signed by: Matthias Goins M.D. 04/25/2022 1:03 PM
--- NOTE | 2022-04-25 14:12 | Pharmacy Report ---
Pharmacy PN Initial Consult - Date of Service April 25, 2022 - Scope Pharmacy has been consulted to manage parenteral nutrition orders and order appropriate labs. As part of the Nutrition Support Team guidelines, pharmacy will work in conjunction with dietary when determining the patients caloric needs. - Subjective The patient is a 76 year old F admitted on 04/19/22 19:13 for HYPERNATREMIA. Patient is to receive parenteral nutrition for prolonged NPO secondary to mouth ulcers and parotitis. - Objective Height: 5 ft 5 in Weight: 108.9 kg Intake & Output (Last 24Hrs): Intake & Output 04/23/22 04/24/22 04/25/22 04/26/22 06:59 06:59 06:59 06:59 Intake Total 2889.537 / 2889.537 1918 / 1918 823 / 823 214.35 / 214.35 Output Total 1350 / 1350 1300 / 1300 1400 / 1400 Balance 1539.537 / 1539.537 618 / 618 -577 / -577 214.35 / 214.35 Weight 109.9 kg 110.4 kg 108.9 kg Laboratory Data (Last 24 Hrs):: 04/25/22 07:14 Sodium 148 H Potassium 4.0 Chloride 113 H Carbon Dioxide 27 BUN 42 H Creatinine 0.68 Glucose 121 H Calcium 7.8 L Phosphorus 2.3 L Magnesium 2.4 Nutrition Assessment:: Please refer to the Notes section of the EMR for the most recent lead web developer note. - Assessment * SD is a 76 year old female admitted on 04/19/22, now ordered TPN due to prolonged NPO status secondary to parotitis/oral ulcers * Complicated PMH, including diffuse large B-cell lymphoma, Afib, current MRSA bacteremia, and morbid obesity (BMI: 40) * Currently receiving treatment for MRSA bacteremia (secondary to parotitis?) with daptomycin and rifampin * Nephrology consulted, significant fluid overload noted - will limit TPN volume as able * Initiated albumin and furosemide infusion * Electrolyte abnormalities include, elevations in sodium (148 mmol/L) and chloride 113 mmol/L; phosphorus low at 2.3 mg/dL * Repleted with 30 mmol Kphos prior to TPN initiation * Macronutrient recs provided by dietary, appreciated * Patient had IV thiamine/folic acid in TPN - will d/c and add to TPN today - Plan For day 1 of PN administration, the following will be ordered: Macronutrients Amino acids 58 grams/day Dextrose 101 grams/day *hold lipids today Micronutrients Potassium phosphate 15 mMol Potassium acetate 40 mEq Magnesium sulfate 4.06 mEq Calcium gluconate 4.65 mEq Multivitamins 10 mL Trace Elements 10 mL Additional additives: thiamine 100 mg, folic acid 1 mg Total volume 768 mL to be infused over 24 hrs will provide 573 kcal/day Labs to be ordered per PN order protocol Pharmacy will follow and adjust parenteral nutrition orders on a daily basis. Thank you.
[2022-04-25 14:30] LABS: Hematocrit (blood only) 26.5 % (34.1-44.9); Hemoglobin 8.2 g/dl (12.0-16.0)
[2022-04-25] MEDS ORDERED: [UNRECOGNIZED DRUG - OTHER] IV SCH (16:00)
[2022-04-25] MEDS ORDERED: AMINO ACID 8% IV SCH (16:00)
[2022-04-25] MEDS ORDERED: CENTRAL TPN IV SCH (16:00)
[2022-04-25] MEDS: FUROSEMIDE 100 MG in DEXTROSE 5% 90 ML IV SCH (16:13)
--- NOTE | 2022-04-25 16:38 | Hospitalist Progress Note ---
Date of Service April 25, 2022 Assessment & Plan (1) Toxic metabolic encephalopathy: Plan 76-year-old female with PMH of PAF s/p 04/03/22 pacer w/ ventricular lead and 04/04/22 AV node ablation, HTN, dyslipidemia, h/o breast cancer, recent diagnosis of diffuse, large B-cell lymphoma, and recent TIA (04/04/22) presented to ER 04/19/22 from [facility] w/ right sided facial swelling, lethargy x 1 day [employer]. She is being managed for the following: (1) Acute hypernatremia: (2) Likely Toxic metabolic encephalopathy: (3) Altered mental status: Recent admission with hyponatremia that was thought secondary to hypervolemic hyponatremia and initially treated with 1.5 L fluid restriction, Lasix 20 mg twice daily, however Lasix was later discontinued secondary to hypotension Hypernatremia likely due to poor oral intake given her parotid swelling Admitting CT head:No acute intracranial hemorrhage, no acute infarction, no acute intracranial abnormality Encephalopathy likely secondary to hyponatremia, sepsis.--> resolved. Plan: - Na again slightly up today, nephro on board, appreciate recs. - Na 148 today, Pt not able to take PO early in admission due to oral ulcers (c/w clotrim torches/triamcinolone oral on top of lidocaine viscous). Improving oral s/s. TPN started today due to lack of nutrition for many days. Video swallow done today, speech cleared for pureed diet. Can DC TPN if pt w/ improving PO intake. - BMP daily and as needed. IVF adjustment until PO intake able. - Pt on 2 L O2, 1 to 2+ ble edema, Pt w/ fluid in the lungs and legs, chance of deterioration high; family aware, anticipate icu transfer if w/ deterioration. - Continue w/ oral care, speech on board. (4) Sepsis POA: (5) Urinary tract infection: (6) MRSA bacteremia: (7) Parotitis: Reported right-sided facial swelling x1 day [employer]. Admitting CT soft tissue neck: Interval development of a right-sided parotitis. The right-sided lymphadenopathy has slightly improved. Mucosal thickening throughout the hypopharynx most pronounced at the right palatine tonsil persists. No significant airway compromise at this time. Multiple source of infection which includes MRSA bacteremia, parotitis, sacral wound ulcer and urinary tract infection. Admitting UA w/ UTI, UCx w/ pansensitive E. Coli Admitting Bl Cx MRSA, 04/20 Bl Cx MRSA, 04/21 and 04/22 Bl Cx no growth till date. Follow blood cultures. Admitting ECHO: echogenic mass (s/o clot/fibrinous material) w/ some mobility located in the pericardial space at the junction of the RA and RV. No evidence of vegetation. ID evaluated, agrees w/ 04/20 cefepime, flagyl and vanco. cefepime and flagyl for 2 weeks. Re-d/w ID 04/24 in detail w/ new updates -->> for MRSA infection on the background that pacer can't be removed -->> DC vanco, start Dapto and rifampin for total of 6 weeks, CPK on 04/24 is 22, f/u cbc/cmp/cpk weekly, after 6 weeks of iv atb follow w/ suppressive therapy w/ doxy or bactrim, likely lifelong if PPM stays in. Since rifampin has dr-dr interaction w/ heidi, it will be changed to lovenox until she can take PO, when it will be changed to warfarin. Will start on dapto and rifampin 04/24. Warfarin started at 4 mg daily today, PT/INR daily, continue lovenox bridge. D/w cardio 04/22 d/t recent pacer placement and MRSA bacteremia and abn ECHO-->prolonged iv atb therapy recommended, no KEEGAN d/t her comorbidities and being pacer dependent. Large sacral ulcer, Gen Sx evaled, not a candidate for surgical debridement d/t multiple medical issues. Parotitis, ENT evaled, no signs of abscess formation, hence medical Mx. Watchful for infection progression/abscess formation. Cefepime and falgyl for 14 days total. PICC line was removed 04/20, then midline placed 04/20; Bl Cx neg from 04/21, PICC line placed 04/25, for TPN/IV antbiotics. (8) Diffuse large B-cell lymphoma: (9) Likely chemotherapy induced pancytopenia Oral Ulcers - improving Hematuria On 04/04; patient had stroke alert for which CTA head and neck was done. Pathological bilateral cervical lymphadenopathy was seen. Patient underwent FNAC of left axillary lymph node on 04/07. She was diagnosed with diffuse large B-cell lymphoma. Oncology concerned she has rapidly progressive disease. Recent treatment with prednisone and dose of IV cyclophosphamide. Was also given Neupogen. Developed hypercalcemia and was given Zometa. CT neck on admission shows slight improvement in right-sided lymphadenopathy. RBC about stable, leucopenia slightly improved --> neutropenic precaution, daily neupogen based on WBC count, aim for ANC >1k for 2 days. d/w Onco 04/23. Platelets improving, d/w oncology 04/22, ok to resume her anticoagulation. She has oral ulcers and hematuria likely 2/2 UTI as well. As per oncology, patient has other acute issues to be dealt with first before cancer treatment can be reinitiated. Will obtain CT chest without contrast on nonemergent basis. (11) Hyperglycemia: Secondary to D5 and high dose steroids as part of chemotherapy. Currently on lantus and novolog. Glycemic pharmacy on board. HbA1c- 5.7%. (12) Cardiomyopathy: (13) Paroxysmal A fib: Status post AV william ablation and biventricular pacemaker placement last admission. On Eliquis. 03/27/2022 echo: EF: 45-50%, mild global hypokinesis, mild concentric LVH, mildly dilated right ventricle, severe left atrial dilation, mild , mild MR, small pericardial effusion without evidence of tamponade Current paced rhythm on EKG Pt w/ anasarca likely multifactorial, monitor volume status, on lasix drip Lovenox 04/24, warfarin 04/25 (eliquis has interaction w/ rifampin which patient is started on 04/24) Resume metoprolol when able. (14) Elevated troponin: Likely demand ischemia 2/2 acute illness. (15) H/o Pleural effusion: (16) Hypoxia: Pulmonary edema: multipfactorial, h/o heart failure, poor nutrition, need for IVF w/ hypernatremia Recent history bilateral pleural effusions. 04/06/2022: Thoracentesis, total 1.3L removed. Cytology showed lymphocytes and reactive mesothelial cells and red blood cells, no malignant cells seen Admitting CT soft tissue neck: No change in the moderate right pleural effusion Negative rapid Covid-19 test Supplemental oxygen as needed, caution w/ ivf, on lasix drip Pt w/ improving O 2 requirement. (17) Other Chronic Medical Conditions: HTN, h/o Breast Cancer (s/p lumpectomy 2014), Recent hospitalization w/ noted low BPs, hold BP meds, resume metoprol when able, lasix drip, hold other bp meds. DVT Px: SCDs for now, eliquis when able. Full code (per pt's poa and dtr Yanely). Dispositioncontinue to be hospitalized due to multiple infection, neutropenia, thrombocytopenia, hypernatremia. Family prefers her to go to LTAC on discharge. complex medical status/worrisome outcome. 04/22: pt's dtr yanely given phone call, updated in detail, answered all her questions to her satisfaction. 04/24: Family meeting w/ Pt's dtr and POA Latonyaorly Robbins, Curt RobbinsTREY; Updated on the current status of the patient in detail. Mentioned the need for ivf and lasix for her hypernatremia, and made them aware pt not being able to tolerate lasix due to low bp and ivfluid d/t fluid retention. Explained the complexity of the delicate medical condition of the patient. Family wants everything to be done including intubation but accepts the fact that she is in a very serious condition. Made them aware that the patient expressed that "it is her time to go" to me in the morning, RN was present. Then, she mentioned she will talk with the family. Encouraged pt's family to discuss about goals of care w/ patient and suggested i can be reached out any time or i will follow with the patient and with them if needed. Answered all their questions to their satisfaction. TPN ko until pt able to eat po adequately, can dc in 1-2 days depending on PO intake. Low threshold for icu transfer. Admission and Anticipated Discharge Date Admission Date: April 19, 2022 Subjective Patient seen and examined bedside as a follow-up of altered mental status, acute hyponatremia, sepsis POA, UTI, MRSA bacteremia, parotitis and chemotherapy- induced pancytopenia on the background of recent diagnosis of diffuse large B- cell lymphoma. Patient was lying in bed, on 2L NC O2, sleepy but easy arousable and oriented x3, reports improvement in mouth sore, denies headache or dizziness, patient does have oral ulcers likely secondary to immunosuppression which is now improving, pt has anasarca about the same. Physical Exam Physical Exam: GENERAL: Alert and oriented x3. NAD, on 2L NC O2. appears ill/frail/weak. HEENT: No pallor, no icterus. Pupils equal, round and reactive to light. Oral mucosa moist. Rt cheek swelling, diffuse oral ulcers/tender w/ mouth opening --> improving. NECK: No JVD, Rt > Lt cervical LAD. HEART: S1 and S2 heard. Regular rate and rhythm. No murmur, no gallop. RESPIRATORY SYSTEM: Normal AP diameter. No accessory muscle use. No wheezing, b/b crackles. ABDOMEN: Soft, bowel sounds present, nontender, no distention. No face droop appreciated. intact eye closure and frowning. No dysarthria CENTRAL NERVOUS SYSTEM: Obeys simple commands. Moves extremities. EXTREMITIES: 1 to 2+ BLE edema, no erythema seen. No sensory loss or weakness noted. galarza in place w/ dark urine. Results & Data Results & Data ([facility]) Vital Signs (Past 12 Hours) Vital Signs Temp Pulse Pulse Resp BP BP Pulse Ox 04/25/22 16:06 36.3 C L 89 20 110/81 95 04/25/22 15:27 96 H 105/71 04/25/22 15:17 36.7 C 96 H 20 105/71 91 04/25/22 08:00 04/25/22 11:00 37.0 C 89 20 112/75 95 04/25/22 10:33 90 115/75 04/25/22 07:53 36.5 C 90 22 100/61 98 O2 Del Method O2 Flow Rate 04/25/22 16:06 Nasal Cannula 2 04/25/22 15:27 04/25/22 15:17 Nasal Cannula 2 04/25/22 08:00 Nasal Cannula 2 04/25/22 11:00 Nasal Cannula 2 04/25/22 10:33 04/25/22 07:53 Nasal Cannula 2
[2022-04-25] MEDS ORDERED: WARFARIN SOD 4 MG TAB PO SCH (17:05)
[2022-04-25] MEDS: LANTUS PER UNIT CHARGE SQ SCH (20:03)
[2022-04-26] MEDS: LIDOCAINE VISCOUS 2% 15 ML UDC MT PRN ×2 (00:29→06:21)
[2022-04-26] MEDS: INSULIN ASPART PER UNIT SC SCH ×5 (03:09→19:51)
[2022-04-26] MEDS: FUROSEMIDE 100 MG in DEXTROSE 5% 90 ML IV SCH ×3 (03:13→22:54)
[2022-04-26] MEDS: METOPROLOL TARTRATE 1 MG/ML VIAL IV SCH ×4 (03:23→20:29)
[2022-04-26] MEDS: ALBUMIN 25% 100 mL 25 GM/100 ML VIAL IV SCH ×5 (04:34→22:56)
[2022-04-26] MEDS: metroNIDAZOLE 500 MG/100 ML BAG IV SCH ×3 (04:34→20:30)
--- NOTE | 2022-04-26 06:48 | Hospitalist Progress Note ---
Date of Service April 25, 2022 Assessment & Plan (1) DLBCL (diffuse large B cell lymphoma): Plan: Patient seems to be stabilizing with no immediate indications of progression of her Plan * Patient appears to be turning the corner though still with significantly compromised performance status. * CT of the chest at some point could be helpful to assess adenopathy there but overall as per previous she seems to be at least stable but more likely moderately improved with respect to her underlying lymphoma. * Encouraging to see that she has recovered her neutrophils to good levels and can stop the Zarxio at this point. There may be a mild rebound of neutropenia but if that becomes severe we could always resume it * Platelet count is also rising and will more than support any needed anticoagulation from a numerical standpoint though she still will remain at bleeding risk for any occult GI or other vascularly compromised lesions * At this point effort will need to be focused on infectious disease and general medical issues. I have communicated to the son that there is ongoing concern that she still has an overall guarded prognosis. Only as we see that she can more robustly recover will we consider moving on with additional treatment for her lymphoma itself. Admission and Anticipated Discharge Date Admission Date: April 19, 2022 Subjective Patient is asleep but her grandson indicates that she has had better days overall. No easily fatigued, she is more alert and talkative and apparently unless Physical Exam Physical Exam: Vital signs are stable, right parotid mass appears to be decreased in size. She looks comfortable sleep in her bed Results & Data Results & Data ([facility]) Vital Signs (Past 12 Hours) Vital Signs Temp Pulse Pulse Pulse Resp BP BP 04/26/22 03:23 91 H 108/68 04/26/22 03:21 36.7 C 91 H 108/68 04/25/22 23:45 90 04/25/22 23:21 36.9 C 89 16 115/68 04/25/22 20:00 04/25/22 20:10 36.4 C L 90 20 114/75 04/25/22 20:10 91 H 107/73 Pulse Ox O2 Del Method O2 Flow Rate 04/26/22 03:23 04/26/22 03:21 97 Oxymask 6 04/25/22 23:45 04/25/22 23:21 97 Oxymask 2 04/25/22 20:00 Oxymask 6 04/25/22 20:10 97 Oxymask 2 04/25/22 20:10 PG Care Time/CCT Total # of Minutes Spent Total Time Spent with Patient: Total time spent is greater than 50% in coordination of care (as documented) at patient's floor/unit and/or counseling patient: Coding Level of Care Code 48035 Subseq Hosp Care Lvl 1 Diagnoses DLBCL (diffuse large B cell lymphoma) C83.30
[2022-04-26 07:03] LABS: Hematocrit (blood only) 29.2 % (34.1-44.9); Hemoglobin 8.8 g/dl (12.0-16.0); Mean Corpuscular Hemoglobin 31.2 pg (25.0-34.0); Mean Corpuscular Hgb Conc 30.1 g/dL (32.0-36.0); Mean Corpuscular Volume 103.5 fL (80.0-100.0); Nucleated RBC # (auto) 0.37 K/uL (0-0); Platelet Count 99 K/uL (130-400); RDW Coefficient of Variation 21.5 % (11.5-14.5); RDW Standard Deviation 75.2 fL (36.4-46.3); Red Blood Count 2.82 M/uL (3.93-5.22); White Blood Count 6.18 K/ul (4.8-10.8)
[2022-04-26 07:12] LABS: INR 1.4 (0.9-1.1); Prothrombin Time 14.9 Seconds (9.0-12.0)
[2022-04-26 07:22] LABS: BUN Creatinine Ratio 64.2 (10-20); Calcium 7.8 mg/dl (8.5-10.1); Creatinine Clr Calc Pharmacy 88.1 ml/min; Est GFR (Non-African American) 85.4 ml/min; Magnesium 2.2 mg/dl (1.7-2.4); Phosphorus 2.4 mg/dl (2.5-4.9); Potassium 3.5 mmol/L (3.5-5.1)
[2022-04-26 07:39] LABS: Basophilic Stippling Occasional; Basophils # (auto) 0.06 K/uL (0-0.2); Immature Granulocytes # (auto) 0.31 K/uL (0.00-0.02); Lymphocytes # (auto) 0.17 K/uL (1.2-3.4); Lymphocytes % (auto) 2.8 %; Monocytes # (auto) 0.29 K/uL (0.24-0.82); Monocytes % (auto) 4.7 %; Neutrophils # (auto) 5.35 K/uL (1.4-6.5); Neutrophils % (auto) 86.5 %
[2022-04-26] MEDS: CLOTRIMAZOLE 10 MG TROCHE BUCCAL SCH ×6 (07:52→21:58)
[2022-04-26] MEDS: LANTUS PER UNIT CHARGE SQ SCH ×2 (08:45→19:51)
[2022-04-26] MEDS: CEFEPIME 2,000 MG in SYRINGE 0 ML IV SCH ×2 (08:46→20:23)
[2022-04-26] MEDS: ENOXAPARIN INJ 120 MG/0.8 ML SYR SQ SCH ×2 (08:46→20:23)
--- NOTE | 2022-04-26 08:46 | Pharmacy Report ---
Pharmacy Glycemic Short Note 2 - Date of Service April 26, 2022 - Glycemic Short BSG Results (Last 24 hours): 04/25/22 04/25/22 04/25/22 11:23 16:18 19:54 Glucose POC Glucose 160 H 155 H 219 H 04/25/22 04/26/22 04/26/22 23:34 03:01 06:34 Glucose 234 H POC Glucose 234 H 231 H 04/26/22 07:21 Glucose POC Glucose 254 H OUTPATIENT ANTIDIABETIC REGIMEN: * None * A1c 5.7% (04/20/22) ASSESSMENT: 04/26/22: * BSGs had previously been well-controlled while dextrose fluids were held (required minimal insulin) * Patient's BSGs tend to be much more labile when dextrose is on board * TPN initiated last evening at ~1600 and BSGs have been > 200 mg/dL since that time * BSGs worsening further still secondary to addition of 1 L of D5W at 80 mL/hr * Will restart basal insulin and tighten Novolog parameters, consider addition of insulin to TPN starting tomorrow * Patient passed swallow evaluation yesterday, nectar thick diet ordered. Per RN, patient not tolerating at this time. 04/23/22: * Dextrose infusion currently on hold due to concern of fluid overload * Not requiring any insulin while dextrose infusion is on hold * Continues on vancomycin, cefepime, and Flagyl 04/21/22: * Ms Robbins's BSGs remain elevated, despite changes instituted yesterday. * Lantus increased this morning for fasting BSG 255mg/dL. * Dextrose IVF is now running at 200 mL/hr. Hypernatremia continues to improve. Expect that patient's insulin needs will decrease when dextrose is reduced/stopped. Will need to follow and adjust Lantus dosing accordingly to prevent hypoglycemia. * Consider increasing Novolog coverage to q4h if BSGs do not improve. Hesitate to increase frequency for patient comfort, however, tighter glycemic control is warranted to facilitate wound/infection healing. 04/20 * 76 year old female, PMH of PAF, HTN, HL, breast CA, recent dx B-cell lymphoma presented to ER from [facility] right sided facial swelling, parotitis now on IV Unasyn, AMS, hypernatremic on IV D5. * No history of DM, A1c 5.7% today, given 5 units IV insulin yesterday in ER, and 10 units of Lantus last night, and correctional insulin Q4H since admission. * Patient remains NPO until speech eval today. * Blood sugars still > 200mg/dl today - increase basal and tighten CF/CR at this time. PLAN FOR INPATIENT GLYCEMIC CONTROL: * Basal insulin * Lantus 15 units SC today, 0-10 units SC HS * Bolus insulin * NovoLog per scale ACHS or Q6hrs while NPO * Goal Range: Low 110 mg/dL - High 140 mg/dL * Correction Factor: 15 mg/dL/unit * Nutritional / Prandial insulin per carb ratio of 1 unit per 8 grams CHO consumed
[2022-04-26] MEDS: NYSTATIN POWDER 15GM BTL EXT SCH ×2 (08:47→20:33)
[2022-04-26] MEDS: TRIAMCINOLONE ACET 0.1% ORABASE 5 GM TUBE MT SCH ×2 (08:48→20:33)
[2022-04-26] MEDS: DOCUSATE SODIUM 100 MG CAP PO SCH ×2 (08:58→19:50)
--- NOTE | 2022-04-26 09:40 | Nephrology Progress Note ---
Date of Service April 26, 2022 Assessment & Plan Admission and Anticipated Discharge Date Admission Date: April 19, 2022 Subjective Subjective S--very weak. massive edema. Not eating.made 2049 ml urine--big improvement. PHYSICAL EXAMINATION: GENERAL: Elderly white female who is very weak and barely able to open eyes or talk. HEENT: Mucous membrane is moist. NECK: Supple. Jugular venous distention could not be assessed. CHEST: Bilateral decreased breath sounds, poor inspiratory effort. CARDIOVASCULAR: S1 and S2, regular. Systolic murmur heard. ABDOMEN: Soft, nontender. Abdominal wall edema. EXTREMITIES: Show 4+ edema. NEUROLOGIC: Very slow and weak speech. LABORATORY TEST: na 148. ASSESSMENT AND PLAN: A 76-year-old female with recently diagnosed aggressive B- cell lymphoma as well as multiple cardiac problems, now admitted with MRSA bacteremia and multiple organ involvement. 1. Hypernatremia. The patient is not really eating or drinking much, so there is some intravascular volume deficit. However, she has really massive anasarca, pleural effusion, pulmonary edema, signifying fluid overload and does need to be diuresed. It is also worth noting that in patients with very aggressive advanced cancer, they can have massive anasarca, which does not respond too well with diuretics. At this point, I would like to give her Lasix drip at current rate. Continue 25% alb q6hr. She can have some free water either as D5 water given rising na+==give 1000 ml d5w. Also TPN I believe the primary problem at this point is aggressive lymphoma, which is m ost likely causing the massive anasarca. Palliative Medicine, Oncology, Cardiology, Infectious Disease, and ENT consultation notes were reviewed in detail. Case was discussed with the primary team. Results & Data ([facility]) Vital Signs (Past 12 Hours) Vital Signs Temp Pulse Pulse Pulse Resp BP BP 04/26/22 08:50 89 137/84 04/26/22 08:48 36.4 C L 89 20 137/84 04/26/22 03:23 91 H 108/68 04/26/22 03:21 36.7 C 91 H 108/68 04/25/22 23:45 90 04/25/22 23:21 36.9 C 89 16 115/68 Pulse Ox O2 Del Method O2 Flow Rate 04/26/22 08:50 04/26/22 08:48 99 Nasal Cannula 2 04/26/22 03:23 04/26/22 03:21 97 Oxymask 6 04/25/22 23:45 04/25/22 23:21 97 Oxymask 2
[2022-04-26] MEDS ORDERED: DEXTROSE 5% 1,000 ML IV SCH (09:45)
[2022-04-26] MEDS ORDERED: hydroCHLOROthiazide 25 MG TAB PO SCH (09:45)
[2022-04-26 10:23] LABS: Lymphocytes % (manual) 3 %; Metamyelocytes % (manual) 3 %; Monocytes % (manual) 3 %; Neutrophils % (manual) 92 %; Nucleated Red Blood Cells (manual) 11 %
[2022-04-26] MEDS ORDERED: INSULIN ASPART PER UNIT SC ONE (10:30)
[2022-04-26] MEDS: DAPTOmycin 775 MG in SYRINGE 0 ML IV SCH (10:35)
[2022-04-26] MEDS ORDERED: LANTUS PER UNIT CHARGE SQ ONE (10:45)
--- NOTE | 2022-04-26 13:38 | Hospitalist Progress Note ---
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 She is being managed for the following: (1) Acute hypernatremia: (2) Likely Toxic metabolic encephalopathy: (3) Altered mental status: Recent admission with hyponatremia that was thought secondary to hypervolemic hyponatremia and initially treated with 1.5 L fluid restriction, Lasix 20 mg twice daily, however Lasix was later discontinued secondary to hypotension Hypernatremia likely due to poor oral intake given her parotid swelling/ oral ulcers Admitting CT head:No acute intracranial hemorrhage, no acute infarction, no acute intracranial abnormality Encephalopathy likely secondary to hyponatremia, sepsis.--> resolved. Plan: - Na again slightly up today, nephro on board, appreciate recs. - Na uptrending, Pt not able to take due to oral ulcers/ reduced consciousness (c/w clotrim torches/triamcinolone oral on top of lidocaine viscous). Improving oral s/s. TPN started on 04/25 due to lack of nutrition for many days. Video swallow done today, speech cleared for pureed diet. But mentation remains issues with diet; - BMP daily and as needed. IVF adjustment until PO intake able. - Pt on 2 L O2, 1 to 2+ ble edema, Pt w/ fluid in the lungs and legs, chance of deterioration high; family aware, anticipate icu transfer if w/ deterioration. - Continue w/ oral care, speech on board. 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 Admitting CT soft tissue neck: Interval development of a right-sided parotitis. The right-sided lymphadenopathy has slightly improved. Mucosal thickening throughout the hypopharynx most pronounced at the right palatine tonsil persists. No significant airway compromise at this time. Multiple source of infection which includes MRSA bacteremia, parotitis, sacral wound ulcer and urinary tract infection. Admitting UA w/ UTI, UCx w/ pansensitive E. Coli Admitting Bl Cx MRSA, 04/20 Bl Cx MRSA, 04/21 and 04/22 Bl Cx no growth till date. Follow blood cultures. Admitting ECHO: echogenic mass (s/o clot/fibrinous material) w/ some mobility located in the pericardial space at the junction of the RA and RV. No evidence of vegetation. ID evaluated, agrees w/ 04/20 cefepime, flagyl and vanco. cefepime and flagyl for 2 weeks. Re-d/w ID 04/24 in detail w/ new updates -->> for MRSA infection on the background that pacer can't be removed -->> DC vanco, start Dapto and rifampin for total of 6 weeks, CPK on 04/24 is 22, f/u cbc/cmp/cpk weekly, after 6 weeks of iv atb follow w/ suppressive therapy w/ doxy or bactrim, likely lifelong if PPM stays in. Since rifampin has dr-dr interaction w/ heidi, it will be changed to lovenox until she can take PO, Will start on dapto and rifampin 04/24. Continue on lovenox for now; Discussed with surgery to see if patient can undergo bedside debridement for sacral ulcer. no currently plans; may be next week. D/w cardio 04/22 d/t recent pacer placement and MRSA bacteremia and abn ECHO-->prolonged iv atb therapy recommended, no KEEGAN d/t her comorbidities and being pacer dependent. Parotitis, ENT evaled, no signs of abscess formation, hence medical Mx. Watchful for infection progression/abscess formation. Cefepime and falgyl for 14 days total. PICC line was removed 04/20, then midline placed 04/20; Bl Cx neg from 04/21, PICC line placed 04/25, for TPN/IV antbiotics. (8) Diffuse large B-cell lymphoma: (9) Likely chemotherapy induced pancytopenia Oral Ulcers - improving Hematuria On 04/04; patient had stroke alert for which CTA head and neck was done. Pathological bilateral cervical lymphadenopathy was seen. Patient underwent FNAC of left axillary lymph node on 04/07. She was diagnosed with diffuse large B-cell lymphoma. Oncology concerned she has rapidly progressive disease. Recent treatment with prednisone and dose of IV cyclophosphamide. Was also given Neupogen. Developed hypercalcemia and was given Zometa. CT neck on admission shows slight improvement in right-sided lymphadenopathy. RBC about stable, leucopenia slightly improved --> neutropenic precaution. Platelets improving, d/w oncology 04/22, ok to resume her anticoagulation. She has oral ulcers and hematuria likely 2/2 UTI as well. As per oncology, patient has other acute issues to be dealt with first before cancer treatment can be reinitiated. Will obtain CT chest without contrast on nonemergent basis. (11) Hyperglycemia: Secondary to D5 and high dose steroids as part of chemotherapy. Currently on lantus and novolog. Glycemic pharmacy on board. HbA1c- 5.7%. (12) Cardiomyopathy: (13) Paroxysmal A fib: Status post AV william ablation and biventricular pacemaker placement last admission. On Eliquis. 03/27/2022 echo: EF: 45-50%, mild global hypokinesis, mild concentric LVH, mildly dilated right ventricle, severe left atrial dilation, mild , mild MR, small pericardial effusion without evidence of tamponade Current paced rhythm on EKG Pt w/ anasarca likely multifactorial, monitor volume status, on lasix drip Lovenox 04/24, Resume metoprolol when able. (14) Elevated troponin: Likely demand ischemia 2/2 acute illness. (15) H/o Pleural effusion: (16) Hypoxia: Pulmonary edema: multipfactorial, h/o heart failure, poor nutrition, need for IVF w/ hypernatremia Recent history bilateral pleural effusions. 04/06/2022: Thoracentesis, total 1.3L removed. Cytology showed lymphocytes and reactive mesothelial cells and red blood cells, no malignant cells seen Admitting CT soft tissue neck: No change in the moderate right pleural effusion Negative rapid Covid-19 test Supplemental oxygen as needed, caution w/ ivf, on lasix drip Pt w/ improving O 2 requirement. (17) Other Chronic Medical Conditions: HTN, h/o Breast Cancer (s/p lumpectomy 2014), Recent hospitalization w/ noted low BPs, hold BP meds, resume metoprol when able, lasix drip, hold other bp meds. DVT Px: SCDs for now, eliquis when able. Full code (per pt's poa and dtr Yanely). Dispositioncontinue to be hospitalized due to multiple infection, neutropenia, thrombocytopenia, hypernatremia. Family prefers her to go to LTAC on discharge. complex medical status/worrisome outcome. Discussed with CM. Discussed with family at bedside. Admission and Anticipated Discharge Date Admission Date: April 19, 2022 Subjective Patient seen and examined at bedside. She is lethargic; awakens to voice. Able to follow simple commands but unable to communicate more than that. Review of Systems Review of Systems: Unobtainable due to reduced consciousness Physical Exam Physical Exam: Constitutional: Lethargic, ill-appearing. Head: Right-sided cheek swelling; tender on palpation. Slight improvement on swelling compared to yesterday. Mouth-multiple mount sores; no active site of bleeding Neck: trachea midline, no thyromegaly normal visual inspection Respiratory: Decreased breath sound at bilateral bases. Cardiovascular: RRR, no murmur, no edema Vessels: no JVD or carotid bruit Chest: normal inspection of chest Abdomen: distended; non-tender. Catalan in place with pinkish urine. Musculoskeletal: no cyanosis or clubbing, extremities motor strength 3/5. 2+ pitting edema present. Skin: no rashes, warm and dry normal turgor Neurologic: non-focal. Psychiatric: responds to voice; follows commands intermittently. : deferred Results & Data Results & Data ([facility]) Vital Signs (Past 12 Hours) Vital Signs Temp Pulse Pulse Pulse Resp BP BP 04/26/22 12:25 36.5 C 88 20 116/80 04/26/22 11:06 04/26/22 08:50 89 137/84 04/26/22 08:48 36.4 C L 89 20 137/84 04/26/22 03:23 91 H 108/68 04/26/22 03:21 36.7 C 91 H 108/68 Pulse Ox O2 Del Method O2 Flow Rate 04/26/22 12:25 94 Nasal Cannula 2 04/26/22 11:06 Nasal Cannula 2 04/26/22 08:50 04/26/22 08:48 99 Nasal Cannula 2 04/26/22 03:23 04/26/22 03:21 97 Oxymask 6 Laboratory Results Laboratory Results WBC 6.18 K/ul (4.8-10.8) 04/26/22 06:34 RBC 2.82 M/uL (3.93-5.22) L 04/26/22 06:34 Hgb 8.8 g/dl (12.0-16.0) L 04/26/22 06:34 Hct 29.2 % (34.1-44.9) L 04/26/22 06:34 MCV 103.5 fL (80.0-100.0) H 04/26/22 06:34 MCH 31.2 pg (25.0-34.0) 04/26/22 06:34 MCHC 30.1 g/dL (32.0-36.0) L 04/26/22 06:34 RDW Std Deviation 75.2 fL (36.4-46.3) H 04/26/22 06:34 RDW Coeff of Carlita 21.5 % (11.5-14.5) H 04/26/22 06:34 Plt Count 99 K/uL (130-400) L 04/26/22 06:34 MPV 12.0 fL (9.4-12.3) 04/26/22 06:34 Immature Gran % (Auto) 5.0 % 04/26/22 06:34 Neut % (Auto) 86.5 % 04/26/22 06:34 Lymph % (Auto) 2.8 % 04/26/22 06:34 Stevens % (Auto) 4.7 % 04/26/22 06:34 Eos % (Auto) 0.0 % 04/26/22 06:34 Baso % (Auto) 1.0 % 04/26/22 06:34 Reticulocyte % (Auto) 0.5 % (0.5-2.0) 04/22/22 06:36 Neut # (Auto) 5.35 K/uL (1.4-6.5) 04/26/22 06:34 Lymph # (Auto) 0.17 K/uL (1.2-3.4) L 04/26/22 06:34 Stevens # (Auto) 0.29 K/uL (0.24-0.82) 04/26/22 06:34 Eos # (Auto) 0.00 K/uL (0-0.50) 04/26/22 06:34 Baso # (Auto) 0.06 K/uL (0-0.2) 04/26/22 06:34 Reticulocyte # 0.02 10^6/uL (0.02-0.10) 04/22/22 06:36 Immature Gran # (Auto) 0.31 K/uL (0.00-0.02) H 04/26/22 06:34 Absolute Nucleated RBC 0.37 K/uL (0-0) H 04/26/22 06:34 Nucleated RBC % (auto) 6.0 % 04/26/22 06:34 Neutrophils % (Manual) 92 % 04/26/22 06:34 Band Neutrophils % Cancelled 04/22/22 06:36 Lymphocytes % (Manual) 3 % 04/26/22 06:34 Prolymphocyte % Cancelled 04/22/22 06:36 Reactive Lymphs % (Man) Cancelled 04/22/22 06:36 Monocytes % (Manual) 3 % 04/26/22 06:34 Eosinophils % (Manual) Cancelled 04/22/22 06:36 Basophils % (Manual) Cancelled 04/22/22 06:36 Metamyelocytes % (Man) 3 % 04/26/22 06:34 Myelocytes % (Man) Cancelled 04/22/22 06:36 Promyelocytes % (Man) Cancelled 04/22/22 06:36 Blast Cells % (Manual) Cancelled 04/22/22 06:36 Plasma Cell % (Manual) Cancelled 04/22/22 06:36 Other Cells % Cancelled 04/22/22 06:36 Nucleated RBC % 11 % 04/26/22 06:34 Neutrophils # (Manual) 2.76 K/uL (1.4-6.5) 04/25/22 07:14 Band Neutrophils # Cancelled 04/22/22 06:36 Total Absolute Neuts Cancelled 04/22/22 06:36 Lymphocytes # (Manual) 0.19 K/uL (1.2-3.4) L 04/25/22 07:14 Prolymphocyte # Cancelled 04/22/22 06:36 Reactive Lymphs # Cancelled 04/22/22 06:36 Total Abs Lymphocytes Cancelled 04/22/22 06:36 Monocytes # (Manual) 0.06 K/uL (0.24-0.82) L 04/25/22 07:14 Eosinophils # (Manual) Cancelled 04/22/22 06:36 Basophils # (Manual) Cancelled 04/22/22 06:36 Metamyelocytes # (Man) 0.13 K/uL (0-0) H 04/25/22 07:14 Myelocytes # (Manual) Cancelled 04/22/22 06:36 Promyelocytes # (Man) Cancelled 04/22/22 06:36 Blast Cells # (Man) Cancelled 04/22/22 06:36 Plasma Cell # (Manual) Cancelled 04/22/22 06:36 Other Cells # Cancelled 04/22/22 06:36 Nucleated RBCs # (Man) Cancelled 04/22/22 06:36 Hypersegmented Neuts Cancelled 04/22/22 06:36 Hyposegmented Neuts Cancelled 04/22/22 06:36 Hypogranular Neuts Cancelled 04/22/22 06:36 Large Granular Lymphs Cancelled 04/22/22 06:36 # Lrg Granular Lymphs Cancelled 04/22/22 06:36 Hairy Cells Cancelled 04/22/22 06:36 Smudge Cells Cancelled 04/22/22 06:36 Toxic Granulation 1+ 04/25/22 07:14 Toxic Vacuolation Cancelled 04/22/22 06:36 Dohle Bodies 1+ 04/25/22 07:14 Dolores Rods Cancelled 04/22/22 06:36 Hypogranular Platelets Cancelled 04/22/22 06:36 Clumped Platelets Cancelled 04/22/22 06:36 Giant Platelets Cancelled 04/22/22 06:36 Platelet Satelliting Cancelled 04/22/22 06:36 RBC Morphology Cancelled 04/22/22 06:36 Polychromasia 1+ 04/25/22 07:14 Hypochromasia Cancelled 04/22/22 06:36 Poikilocytosis Cancelled 04/22/22 06:36 Basophilic Stippling Occasional 04/26/22 06:34 Anisocytosis Present 04/25/22 07:14 Microcytosis Cancelled 04/22/22 06:36 Macrocytosis Cancelled 04/22/22 06:36 Spherocytes Cancelled 04/22/22 06:36 Pappenheimer Bodies Cancelled 04/22/22 06:36 Sickle Cells Cancelled 04/22/22 06:36 Target Cells Cancelled 04/22/22 06:36 Tear Drop Cells Cancelled 04/22/22 06:36 Ovalocytes Cancelled 04/22/22 06:36 Stomatocytes Cancelled 04/22/22 06:36 [place] Bodies Cancelled 04/22/22 06:36 Echinocytes Cancelled 04/22/22 06:36 Acanthocytes (Spur) Cancelled 04/22/22 06:36 Rouleaux Cancelled 04/22/22 06:36 RBC Agglutinates Cancelled 04/22/22 06:36 Schistocytes Cancelled 04/22/22 06:36 Sezary Cell Cancelled 04/22/22 06:36 Haptoglobin 23 mg/dL (43-212) L 04/22/22 09:15 PT 14.9 Seconds (9.0-12.0) H 04/26/22 06:34 INR 1.4 (0.9-1.1) H 04/26/22 06:34 APTT 31.5 Seconds (21.0-31.0) H 04/19/22 15:19 PTT Ratio 1.1 04/19/22 15:19 ABG pH 7.33 (7.35-7.45) L 04/24/22 00:14 ABG pCO2 52 mmHg (35-46) H 04/24/22 00:14 ABG pO2 104 mmHg (80-95) H 04/24/22 00:14 ABG HCO3 27 mmol/L (19-24) H 04/24/22 00:14 ABG O2 Saturation 99.0 % (90-95) H 04/24/22 00:14 ABG Base Excess 0.6 mEq/L (-9-1.8) 04/24/22 00:14 Kristofer Test POS (Pos) 04/24/22 00:14 VBG pH 7.43 (7.36-7.41) H 04/19/22 17:00 VBG pCO2 62 mmHg (38-50) H 04/19/22 17:00 VBG pO2 31 mmHg 04/19/22 17:00 VBG HCO3 41 mmol/L 04/19/22 17:00 VBG O2 Saturation < 60.0 % 04/19/22 17:00 VBG Base Excess 13.9 mEq/L 04/19/22 17:00 Oxygen Given 40% FIO2 04/24/22 00:14 Sodium 152 mmol/L (136-145) H 04/26/22 06:34 Potassium 3.5 mmol/L (3.5-5.1) 04/26/22 06:34 Chloride 114 mmol/L (98-107) H 04/26/22 06:34 Carbon Dioxide 31 mmol/L (21-32) 04/26/22 06:34 Anion Gap 7 (3-11) 04/26/22 06:34 BUN 43 mg/dl (6-23) H 04/26/22 06:34 Creatinine 0.67 mg/dl (0.6-1.2) 04/26/22 06:34 Est Cr Clr Drug Dosing 88.1 ml/min 04/26/22 06:34 Est GFR ( Amer) 99.0 ml/min 04/26/22 06:34 Est GFR (Non-Af Amer) 85.4 ml/min 04/26/22 06:34 BUN/Creatinine Ratio 64.2 (10-20) H 04/26/22 06:34 Glucose 234 mg/dl (70-99(Fasting)) H 04/26/22 06:34 POC Glucose 303 mg/dl (70-99) H* 04/26/22 13:13 Estimat Average Glucose 117 mg/dl 04/20/22 05:39 Hemoglobin A1c 5.7 % (4.5-5.6) H 04/20/22 05:39 Lactate 1.3 mmol/L (0.4-2.0) 04/20/22 05:39 Uric Acid 4.2 mg/dl (2.6-7.2) 04/19/22 21:24 Calcium 7.8 mg/dl (8.5-10.1) L 04/26/22 06:34 Phosphorus 2.4 mg/dl (2.5-4.9) L 04/26/22 06:34 Magnesium 2.2 mg/dl (1.7-2.4) 04/26/22 06:34 Total Bilirubin 4.5 mg/dl (0.2-1.0) H 04/22/22 06:36 Direct Bilirubin 2.7 mg/dl (0-0.2) H 04/19/22 15:19 AST 23 U/L (13-39) 04/22/22 06:36 ALT 23 U/L (7-52) 04/22/22 06:36 Alkaline Phosphatase 48 U/L (34-104) 04/22/22 06:36 Ammonia 38.0 umol/L (18-72) 04/23/22 21:27 Total Creatine Kinase 22 U/L (26-192) L 04/24/22 06:05 Troponin I High Sens 102.3 pg/ml (0-14) H* 04/19/22 21:24 Total Protein 4.6 gm/dl (6.0-8.3) L 04/22/22 06:36 Albumin 2.2 gm/dl (3.4-5.0) L 04/22/22 06:36 Globulin 2.4 gm/dl (2.5-4.0) L 04/22/22 06:36 Albumin/Globulin Ratio 0.9 (0.9-2) 04/22/22 06:36 Procalcitonin 0.18 ng/ml (0-0.5) 04/19/22 17:00 TSH 1.501 uIu/ml (0.300-4.500) 04/19/22 15:19 Urine Color Bennett 04/19/22 18:14 Urine Appearance Turbid (Clear) A 04/19/22 18:14 Urine pH 5.5 (4.5-7.5) 04/19/22 18:14 Ur Specific [place] 1.023 (1.000-1.030) 04/19/22 18:14 Urine Protein 2+ (Negative) H 04/19/22 18:14 Urine Glucose (UA) Trace (Negative) H 04/19/22 18:14 Urine Ketones Negative (Negative) 04/19/22 18:14 Urine Blood 3+ (Negative) H 04/19/22 18:14 Urine Nitrite Positive (Negative) A 04/19/22 18:14 Urine Bilirubin 1+ (Negative) H 04/19/22 18:14 Urine Urobilinogen Positive (Negative) H 04/19/22 18:14 Ur Leukocyte Esterase 3+ (Negative) H 04/19/22 18:14 Urine WBC (Auto) >30 /hpf (0-5) H 04/19/22 18:14 Urine RBC (Auto) >30 /hpf (0-4) H 04/19/22 18:14 U Hyaline Cast (Auto) 1-5 /lpf (0-5) 04/19/22 18:14 U Epithel Cells (Auto) 10-20 /lpf (0-5) H 04/19/22 18:14 Urine Bacteria (Auto) 4+ (Negative) H 04/19/22 18:14 Nasal Screen MRSA (PCR) Positive (Negative) A 04/20/22 17:21 Vancomycin Trough 22.4 mcg/ml (10-20) H 04/24/22 10:40 Random Vancomycin 27.1 mcg/ml (10-20) H* 04/23/22 06:48 IgG 613.2 mg/dl (635-1741) L 04/20/22 12:58 IgA 444.5 mg/dl (70-400) H 04/20/22 12:58 IgM 63.8 mg/dl (45-281) 04/20/22 12:58 SARS-CoV-2, RNA, NAAT NEGATIVE (NEGATIVE) 04/19/22 17:47 Staphylococcus sp PCR DETECTED (NotDetected) A 04/19/22 15:20 Staph aureus (PCR) DETECTED (NotDetected) A 04/19/22 15:20 mecA/C & MREJ Resist Gene MRSA DETECTED (NotDetected) A* 04/19/22 15:20 Bld Cult ID Panel PCR See PCR Comment (NotDetected) 04/19/22 15:20 Blood Parasites ID Cancelled 04/22/22 06:36 Impressions Soft Tissue Neck CT 04/19/22 14:53 CT soft tissue neck w con HISTORY: R facial swelling TECHNIQUE: Multiaxial CT images of the neck were performed following the intravenous administration of contrast. Sagittal and coronal reformations were performed at the workstation by the radiologist. COMPARISON STUDY: Neck CTA 04/05/2022. FINDINGS: There is again noted right-sided lymphadenopathy. This has improved in the interval. Dominant lymph node currently measures 2.0 x 1.0 cm this producing measured 2.4 x 2.0 cm. Decrease in size in the lymphadenopathy/soft tissue mass adjacent to the angle of the right hemimandible. This currently measures 1.9 cm, previously measuring 3.1 cm. Moderate right pleural effusion is again noted. The mastoid air cells are clear. Near complete opacification the left posterior ethmoid air cells and left sphenoid sinus. This is new from the prior study. Right mandibular condyle deformity, unchanged. No suspicious lytic or blastic osseous lesions. Normal thyroid gland. Partially visualized left-sided pacemaker. Mild mucosal thickening throughout the majority of the hypopharynx most pronounced at the right palatine tonsil. This is similar to the prior study. The epiglottis is normal in thickness. No prevertebral fluid collections identified. Enlargement and increased density with adjacent fat stranding within the right parotid gland. This is consistent with a right-sided parotitis. This is new from the prior study. There is subcutaneous edema within the right lateral and anterior neck. Small foci of gas within the neck appear to correspond to intravenous contrast and may be due to prior line insertion. 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 Moderate calcified plaque within the bilateral carotid bifurcations without significant stenosis. No loculated fluid collections to suggest an abscess. IMPRESSION: 1. Interval development of a right-sided parotitis. 2. The right-sided lymphadenopathy has slightly improved. 3. Mucosal thickening throughout the hypopharynx most pronounced at the right palatine tonsil persists. No significant airway compromise at this time. 4. No change in the moderate right pleural effusion. ACT 112: Negative or not required by law. Electronically signed by: German Lemon M.D. 04/19/2022 4:43 PM Abdomen/Pelvis CT 04/19/22 21:15 CT SCAN OF THE ABDOMEN AND PELVIS WITHOUT IV CONTRAST CLINICAL HISTORY: Lymphoma. COMPARISON STUDY: Abdominal CT dated 04/06/2022. TECHNIQUE: CT scan of the abdomen and pelvis is performed from the lung bases to the proximal femora. Images are reviewed in the axial, sagittal, and coronal planes. IV contrast was not administered for this examination as per the referring clinician. Note that the examination was performed in significantly suboptimal fashion without oral or IV contrast. There is also motion artifact, as well as streak artifact from the arms which could not be elevated of the abdomen. A dose lowering technique was utilized adhering to the principles of ALARA. CT DOSE: 1702.02 mGy.cm FINDINGS: Lung bases: The heart is enlarged noting a small pericardial effusion. The coronary arteries are densely calcified. Pacemaker leads are in place. There are [id number] pleural effusions with dense bibasilar consolidation. Liver: The unenhanced liver is normal in size, contour, and attenuation. There is no intrahepatic biliary ductal dilatation. A 12 mm cyst is noted in the left lobe. Gallbladder: Vicarious excreted contrast. The gallbladder. Spleen: Normal in size and attenuation, measuring 10.2 cm in length. There is a calcified splenic granuloma. Pancreas: Trace fluid is seen adjacent to pancreatic tail. The unenhanced pancreas is moderately atrophic and grossly unremarkable. Adrenal glands: Unremarkable. Kidneys: The unenhanced kidneys are normal in size and without hydronephrosis. Excreted IV contrast is present within the renal collecting systems. This degrades assessment for nephrolithiasis. There is no evidence of contour deforming renal mass lesion. Abdominal vasculature: The abdominal aorta is normal in course and caliber noting advanced atherosclerotic calcification. Bowel: There is no bowel obstruction. Residual enteric contrast is noted in the colon. There is mild colonic diverticulosis without CT evidence of acute diverticulitis. The appendix is well-visualized and normal. Peritoneum: There is no intraperitoneal free air or abdominal ascites. There is mesenteric edema. There is laxity of the ventral wall the pelvis with diastases of the rectus musculature and protrusion of abdominal contents. There is a 1.6 cm focus of irregular nodularity within the pelvic mesentery on image #[id number]. A 1.4 cm irregular nodule seen on image #339. These have significantly decreased in size as compared to 04/06/2022. Lymphadenopathy: None. Pelvic viscera: The bladder is decompressed around a Catalan catheter and could not be assessed. There is intraluminal gas, as well as excreted IV contrast within the bladder. The uterus is surgically absent. No adnexal lesion is seen. Nodularity along the left aspect of the vaginal cuff has almost completely resolved. Skeletal structures: The skeletal structures are osteopenic. There is moderate lumbosacral spondylosis. No lytic or blastic lesions are seen. Soft tissues: There is mild body wall edema. IMPRESSION: 1. Significantly suboptimal examination bilateral and IV contrast. There is also streak and motion artifact. 2. Mesenteric nodules seen on 04/06/2022 have significantly decreased in size from previous. Nodularity along the left vaginal cuff has almost completely resolved. 3. There are small to moderate pleural effusions with dense bibasilar consolidation. This has significantly increased as compared to 04/06/2022. Clinical correlation will be required. 4. Trace nonspecific fluid is seen adjacent to the pancreatic tail. Correlate with serum lipase levels. 5. Additional findings as above. ACT 112: Negative or not required by law. Electronically signed by: Burke Hernandez M.D. 04/20/2022 7:[address] 04/24/22 01:01 CT SCAN OF THE BRAIN WITHOUT IV CONTRAST CLINICAL HISTORY: Lethargy. COMPARISON STUDY: CT of the brain dated 04/19/2022. TECHNIQUE: Unenhanced axial CT scan of the brain is performed from the vertex to the skull base. A dose lowering technique was utilized adhering to the principles of ALARA. CT DOSE: 614.27 mGy.cm FINDINGS: Brain parenchyma: There is age-related involutional change noting mild to moderate subcortical and periventricular microangiopathic disease. A focus of left cerebellar encephalomalacia is consistent with a remote insult. There is no hemorrhage, mass effect, or evidence of acute territorial ischemia by CT criteria. Sanchez-white matter differentiation is preserved. No extra-axial fluid collection is seen. Ventricles, sulci, cisterns: Prominent secondary to involutional change. Intracranial vasculature: There is atherosclerotic calcification of the cav ernous carotid and vertebral arteries. Calvarium: Unremarkable. Sinuses and mastoids: There is moderate mucosal thickening in the left sphenoid sinus. Mild mucosal thickening is present in the left ethmoid sinuses. The remaining paranasal sinuses are clear. The mastoid air cells are well pneumatized. Orbits: The bony orbits are grossly intact. IMPRESSION: There is no hemorrhage, mass effect, or evidence of acute territorial ischemia by CT criteria. ACT 112: Negative or not required by law. Electronically signed by: Burke Hernandez M.D. 04/24/2022 7:25 AM Chest X-Ray 04/25/22 09:24 SINGLE VIEW CHEST CLINICAL HISTORY: PICC placement. FINDINGS: 2 AP, portable, upright chest radiographs are compared to study dated 04/24/2022 and correlated with chest CT dated 04/06/2022. A right PICC line has been placed. The tip of the catheter projects over the cavoatrial junction. A right PICC line has been removed. A 2-lead cardiac pacemaker is unchanged in position and partially obscures the left mid chest. The heart is enlarged noting atherosclerotic calcification of the thoracic aorta. There is pulmonary vascular congestion and interstitial edema. There are layering pleural effusions with bibasilar consolidation. No pneumothorax is seen. The skeletal structures are osteopenic. There are healed right-sided rib fractures. IMPRESSION: 1. A right sided PICC line has been placed as above. 2. Cardiomegaly with evidence of congestive failure and pulmonary edema. The left upper lobe has modestly cleared as compared to yesterday. 3. Layering pleural effusions and bibasilar consolidation. ACT 112: Negative or not required by law. Electronically signed by: Burke Hernandez M.D. 04/25/2022 9:56 AM Videofluoroscopic Swallow 04/25/22 11:00 FL video swallow CLINICAL HISTORY: 76 years-old Female with assess for aspiration. Dysphasia with possible aspiration TECHNIQUE: Video fluoroscopic evaluation of swallowing was performed in the AP and lateral projections by the speech pathology staff. The patient is fed nectar-thick and thin liquid, mildly thick and pudding consistencies. FLUOROSCOPY TIME: 3.5 minutes. COMPARISON STUDY: Video swallow study 04/06/2022 FINDINGS: There is aspiration and cough with thin liquid barium. No additional aspiration identified throughout the study. Mild residue within the vallecula. Spondylitic spurring of the cervical spine. IMPRESSION: 1. Aspiration with thin liquid barium. 2. Please see the speech pathologist report for detailed findings and recommendations. ACT 112: Negative or not required by law. Electronically signed by: Matthias Goins M.D. 04/25/2022 1:03 PM
[2022-04-26] MEDS ORDERED: AMINO ACID 8% IV SCH (16:00)
[2022-04-26] MEDS ORDERED: CENTRAL TPN IV SCH (16:00)
[2022-04-26] MEDS ORDERED: CLINOLIPID 20% IV FAT EMULSION 250 ML IV SCH ×2 (16:00)
[2022-04-26] MEDS ORDERED: [UNRECOGNIZED DRUG - OTHER] IV SCH (16:00)
[2022-04-26] MEDS ORDERED: STOP CLINOLIPID SCH (18:59)
[2022-04-26 23:40] LABS: iSTAT Allen Test Fail; iSTAT Art Bld Gas pCO2 Correct 80 mmHg (35-46); iSTAT Art Bld Gas pH Corrected 7.237 (7.35-7.45); iSTAT Arterial Blood Gas HCO3 34 meg/L (19-24); iSTAT Arterial Blood Gas pCO2 82 mmHg (35-46); iSTAT Arterial Blood Gas pH 7.23 (7.35-7.45); iSTAT Arterial Blood Gas pO2 72 mmHg (80-95); iSTAT Arterial Blood Gas pO2 C 69; iSTAT Carbon Dioxide 37 mmol/L (24-31); iSTAT Hematocrit 30 % (37-47); iSTAT Hemoglobin 10.2 g/dl (12.0-16.0); iSTAT Site R Radial; iSTAT Sodium 153 mmol/L (135-144)
[2022-04-27] MEDS: INSULIN ASPART PER UNIT SC SCH ×4 (00:49→12:20)
[2022-04-27] MEDS: METOPROLOL TARTRATE 1 MG/ML VIAL IV SCH ×3 (02:17→17:54)
[2022-04-27 04:59] LABS: Base Excess ABG 9.7 mEq/L (-9-1.8); HCO3 ABG 37 mmol/L (19-24); Oxygen Saturation ABG 99.6 % (90-95); PCO2 ABG 63 mmHg (35-46); PO2 ABG 96 mmHg (80-95); pH ABG 7.38 (7.35-7.45)
[2022-04-27] MEDS: ALBUMIN 25% 100 mL 25 GM/100 ML VIAL IV SCH ×2 (05:00→12:22)
[2022-04-27] MEDS: metroNIDAZOLE 500 MG/100 ML BAG IV SCH ×3 (05:00→21:09)
[2022-04-27 05:11] LABS: Allen Test Pos (Pos)
[2022-04-27 05:26] LABS: BUN Creatinine Ratio 65.7 (10-20); Calcium 7.6 mg/dl (8.5-10.1); Creatinine Clr Calc Pharmacy 84.3 ml/min; Est GFR (African American) 97.5 ml/min; Est GFR (Non-African American) 84.2 ml/min; Magnesium 1.9 mg/dl (1.7-2.4); Phosphorus 1.9 mg/dl (2.5-4.9); Potassium 2.8 mmol/L (3.5-5.1)
[2022-04-27 06:19] LABS: Hematocrit (blood only) 28.8 % (34.1-44.9); Hemoglobin 8.8 g/dl (12.0-16.0); Mean Corpuscular Hemoglobin 31.7 pg (25.0-34.0); Mean Corpuscular Hgb Conc 30.6 g/dL (32.0-36.0); Mean Corpuscular Volume 103.6 fL (80.0-100.0); Mean Platelet Volume 11.9 fL (9.4-12.3); Nucleated RBC # (auto) 0.43 K/uL (0-0); Nucleated RBC % (auto) 7.9 %; Platelet Count 67 K/uL (130-400); Platelet Estimate Decreased (Normal); Red Blood Count 2.78 M/uL (3.93-5.22); White Blood Count 5.42 K/ul (4.8-10.8)
[2022-04-27 07:28] LABS: Base Excess ABG 11.5 mEq/L (-9-1.8); HCO3 ABG 39 mmol/L (19-24); Oxygen Saturation ABG 99.6 % (90-95); PCO2 ABG 63 mmHg (35-46); PO2 ABG 117 mmHg (80-95)
[2022-04-27 07:29] LABS: Allen Test Pos (Pos)
[2022-04-27] MEDS: POTASSIUM CHLORIDE / WTR 10 MEQ/100 ML PLCT IV SCH ×4 (08:14→12:19)
[2022-04-27] MEDS: CEFEPIME 2,000 MG in SYRINGE 0 ML IV SCH ×2 (08:16→21:10)
--- NOTE | 2022-04-27 08:18 | XRay Report ---
SINGLE VIEW CHEST CLINICAL HISTORY: Pulmonary edema. FINDINGS: An AP, portable, upright chest radiograph is compared to study dated 04/25/2022 and correla allen with chest CT dated 04/06/2022. The examination is degraded by portable technique and patient rota tion. A right PICC line is unchanged in position . A 2-lead cardiac pacemaker is unchanged in positio n and partially obscures the left mid chest. The heart is enlarged noting atherosclerotic calcificati on of the thoracic aorta. There is pulmonary vascular congestion and interstitial edema. There are la yering pleural effusions with bibasilar consolidation. No pneumothorax is seen. The skeletal structur es are osteopenic. There are healed right-sided rib fractures. IMPRESSION: 1. Cardiomegaly with evidence of congestive failure and pulmonary edema. This is similar to previous. 2. Layering pleural effusions and bibasilar consolidation. ACT 112: Negative or not required by law. Electronically signed by: Burke Hernandez M.D. 04/27/2022 8:17 AM
[2022-04-27] MEDS: CLOTRIMAZOLE 10 MG TROCHE BUCCAL SCH ×5 (08:46→23:18)
[2022-04-27] MEDS: NYSTATIN POWDER 15GM BTL EXT SCH ×2 (09:04→21:09)
[2022-04-27] MEDS: LANTUS PER UNIT CHARGE SQ SCH (09:04)
[2022-04-27] MEDS: ENOXAPARIN INJ 120 MG/0.8 ML SYR SQ SCH (09:05)
[2022-04-27] MEDS: TRIAMCINOLONE ACET 0.1% ORABASE 5 GM TUBE MT SCH ×2 (09:06→21:10)
[2022-04-27] MEDS: FUROSEMIDE 100 MG in DEXTROSE 5% 90 ML IV SCH (09:39)
[2022-04-27] MEDS ORDERED: DEXTROSE 5% 500 ML IV SCH (10:00)
--- NOTE | 2022-04-27 10:01 | Nephrology Progress Note ---
Date of Service April 27, 2022 Assessment & Plan (1) Hypernatremia: Plan: Due to hypertonic TPN and inability to drink free water. Sodium is 150 today. Patient is significantly swollen. We will start D5 at 100/h if neck sodium is above 150. Okay to monitor for now. (2) Hypokalemia: Plan: Patient is receiving potassium chloride 40 mEq today. Repeat sodium at 2 PM and replete as needed Admission and Anticipated Discharge Date Admission Date: April 19, 2022 Subjective Seen for hypernatremia and hypokalemia. Patient is unable to give history due to altered mental status. Review of Systems Review of Systems: Unable to obtain due to altered mental status Physical Exam Physical Exam: General exam: Appears comfortable, no acute distress HEENT: Pupils are equal and reactive to light Neck: No JVD, neck is supple trachea is midline Respiratory system: Clear breath sounds bilaterally. Gastrointestinal: Abdomen is soft, non distended, non tender, bowel sounds are present CVS: Regular rate and rhythm. No murmurs, rubs or gallops Musculoskeletal: No joint or muscle tenderness Extremities: Non tender, 2+ edema, peripheral pulses are present Neuro: no tremors, no focal neurological deficits Skin: No rashes Results & Data ([facility]) Vital Signs (Past 12 Hours) Vital Signs Temp Pulse Pulse Resp BP BP Pulse Ox 04/27/22 09:12 36.4 C L 90 24 124/76 93 04/27/22 07:49 89 21 100 04/27/22 03:15 89 24 100 04/27/22 03:14 36.4 C L 89 20 113/76 98 04/27/22 02:17 89 123/79 04/27/22 02:05 89 31 H 123/79 100 04/27/22 00:28 89 04/26/22 23:34 89 94 04/26/22 23:07 36.8 C 88 38 H 128/82 95 O2 Del Method O2 Flow Rate FiO2 04/27/22 09:12 Nasal Cannula 3 04/27/22 07:49 40 04/27/22 03:15 50 04/27/22 03:14 BiPAP 04/27/22 02:17 04/27/22 02:05 BiPAP 50 04/27/22 00:28 04/26/22 23:34 50 04/26/22 23:07 Oxymask 4 Laboratory Results 04/27/22 04:47 04/26/22 04/27/22 04/27/22 06:34 04:47 04:47 WBC 5.42 RBC 2.78 L MCV 103.6 H MCH 31.7 MCHC 30.6 L RDW Std Deviation 76.0 H RDW Coeff of Carlita 22.0 H Plt Count 67 L MPV 11.9 Nucleated RBC % 11 Phosphorus 1.9 L
[2022-04-27] MEDS ORDERED: HYDROmorphone INJ 0.5 MG/0.5 ML SYR IV STA ×2 (10:14→15:46)
[2022-04-27] MEDS: DOCUSATE SODIUM 100 MG CAP PO SCH ×2 (10:23→20:48)
[2022-04-27] MEDS ORDERED: DEXTROSE 5% 1,000 ML IV SCH (10:30)
[2022-04-27] MEDS: DAPTOmycin 775 MG in SYRINGE 0 ML IV SCH (10:31)
--- NOTE | 2022-04-27 10:31 | Pulmonary Consultation ---
Date of Consultation April 27, 2022 Assessment & Plan (1) Pleural effusion: (2) Pancytopenia: (3) MRSA bacteremia: (4) Hypoxia: (5) Diffuse large B-cell lymphoma: (6) Heart failure with mid-range ejection fraction: Plan Attending: Dr. Cat Impression: 76-year-old female with multiple comorbidities including bacteremia, sacral ulcer, MRSA, cardiomyopathy, poorly controlled atrial fibrillation, B-cell lymphoma, recent chemotherapy with cyclophosphamide, pancytopenia with platelet count of 67,000, hypernatremia, unresponsiveness. Recurrent bilateral pleural effusions. Previous thoracentesis by Dr. Cat 04/06/2022 with 1.3 L evacuated. No evidence of malignancy in the pleural fluid at that time. We are consulted for evaluation for recurrent thoracentesis. Long bedside discussion with as well as the grandson. Was then placed on conference call with daughter and DOROTHY Ny. At this time, they would like to withdraw care and convert to comfort measures only after the family can be together at home and then congregate in the patient's room. This was discussed with the hospitalist and at this time patient has been changed to a DNR/DNI status. Hospitalist to further discuss with family when they arrive and convert to comfort measures only. Recommendations: 1. Recurrent bilateral pleural effusions: * No indication for thoracentesis or other intervention at this time due to above. * Discussion of Pleurx catheter secondary to recurrent fluid. This is not recommended at this time secondary to comorbid conditions as well as active bacteremia. * At this time would continue to encourage comfort measures only and withdrawal of care and focus on palliation and dignity. * Patient's as well as his family are in agreement with this and will coordinate with the hospitalist later today Thank you very much for including us in the care of this patient. This plan has been discussed extensively with Dr. Cat. Please refer to his addendum for any further recommendations. Supervising Physician Co-Signing Physician Notes Seen and agree with assessment and plan as noted by GERDA. Agree with transition to comfort measures. Pulmonary will sign off. Feel free to contact us with questions or concerns History of Present Illness Reason for Consultation: Evaluation of large pleural effusions Attending Physician: Kiran Cali MD History of Present Illness Attending: Dr. Cat Is a 76-year-old female known to our service from previous admission. 04/06/2022 patient had a thoracentesis with Dr. Cat with 1.3 L evacuated. This was negative for cytology. Patient does have a newly diagnosed large B cell lymphoma and received 1 dose of cyclophosphamide and is currently being treated by Dr. Solano [facility]. Patient also history of paroxysmal atrial fibrillation and is fully anticoagulated on apixaban 5 mg p.o. twice daily at home and currently is on Lovenox 111 mg twice daily. Patient also has thrombocytopenia secondary to her chemotherapy and currently has a platelet count of 67,000.Patient is morbidly obese with a BMI of 39.8 kg/m. She also has cardiomyopathy. Recent echocardiogram on 03/27/2022 shows left ventricular ejection fraction 45 to 50%. There is also mild global hypokinesis, mild concentric LVH, mildly dilated right ventricle, severe left atrial dilation, mild aortic stenosis, mild mitral regurgitation. She also has small pericardial effusion with no evidence of cardiac tamponade. Patient also had an echogenic mass with some mobility located in the pericardial space at the junction of the RA and RV. It is unclear from ultrasonic evaluation whether this is clot, fibrinous material or related to her lymphoma. There is not appear to be any vegetation on the valves. Regarding heratrial fibrillation with rapid ventricular response as well as hyponatremia, she was seen by cardiology. Cardioversion was attempted. Eventually the patient was taken to [facility] on 04/03/2022. 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 The patient had a biventricular pacemaker placed. Patient currently was hyponatremic with a sodium of 119 mmol/L on 03/26/2022 and currently is hypernatremic with a sodium 150 after treatment. She is receiving IV fluids as well as a furosemide drip to manage her fluid status. Nephrology is managing her electrolyte imbalance as well as her fluid status. From a pulmonary standpoint, patient currently requires supplemental oxygen at 3 L/min via nasal cannula. Patient currently is at 91% SPO2. She has not had any significant hypoxia with supplemental oxygen placed. Chest x-ray performed shows layering pleural effusion with bibasilar consolidation. CT scan of the chest performed 04/06/2022 showed small bilateral pleural effusions status pos tthoracentesis. Patient did have some left axillary, supraclavicular, and mediastinal lymphadenopathy which is consistent with her diagnosis of lymphoma. No evidence of pulmonary nodules or masses. From infectious disease standpoint, patient does have MRSA as well as parotitis. She has been seen by infectious disease and at this point has been changed to daptomycin and rifampin and is scheduled to have 6 weeks of IV antibiotic therapy. I will be followed by suppressive therapy with doxycycline or Bactrim. This is due to the patient's recent placement of a cardiac pacemaker. Patient also has sacral decubitus ulcers which are being managed by wound care. Lifelong non-smoker. No previous history of pulmonary disease or need for supplemental oxygen prior to admission this month Allergies Allergy/AdvReac Type Severity Reaction Status Date / Time No Known Allergies Allergy Verified 04/19/22 17:29 Home Medications Medication Instructions Recorded Confirmed Type multivitamin (Multiple Vitamins 1 tab PO QAM 10/15/18 04/19/22 History tablet) apixaban 5 mg tablet 5 mg PO BID 01/29/19 04/19/22 History losartan 25 mg tablet 25 mg PO DAILY 03/26/22 04/19/22 History melatonin 3 mg tablet 3 mg PO HS 03/26/22 04/19/22 History cyanocobalamin (vitamin B-12) 1,000 mcg PO DAILY #30 caps 04/18/22 04/19/22 Rx 1,000 mcg capsule lidocaine 5 % topical patch 1 patch transdermal QAM 30 days 04/18/22 04/19/22 Rx #30 ea metoprolol succinate 25 mg 25 mg PO DAILY 30 days #30 tabs 04/18/22 04/19/22 Rx tablet,extended release 24 hr nystatin 100,000 unit/gram topical 1 applic EXT BID 10 days #50 grams 04/18/22 04/19/22 Rx powder (Nystop) paroxetine HCl 10 mg tablet 10 mg PO DAILY 30 days #30 tabs 04/18/22 04/19/22 Rx docusate sodium 100 mg capsule 100 mg PO BID 04/19/22 04/19/22 History Patient History Medical History Aortic stenosis Atrial fibrillation on eliquis follows with [facility] Breast cancer 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 (01/27/15) "Abnormal left breast mammogram Status post ultrasound-guided core needle biopsy 01/25/2015 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, progesterone receptor negative, HER-2/yury negative Status post lumpectomy and sentinel lymph node biopsy 03/03/2015 Pathologic stage [id number] Status post reexcision 03/23/2015 due to positive margin no residual tumor Status post completion of radiation therapy 06/10/2015 received 6120 cGy " On 07/09/15 10:05 Siria Dunham wrote "Abnormal left breast mammogram Status post ultrasound-guided core needle biopsy 01/25/2015 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, progesterone receptor negative, HER-2/yury negative Status post lumpectomy and sentinel lymph node biopsy 03/03/2015 Pathologic stage [id number] Status post reexcision 03/23/2015 due to positive margin no residual tumor " On 07/09/15 10:05 Siria Dunham wrote "Abnormal left breast mammogram Status post ultrasound-guided core needle biopsy 01/25/2015 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, progesterone receptor negative, HER-2/yury negative Status post lumpectomy and sentinel lymph node biopsy 03/03/2015 Pathologic stage [id number] Status post reexcision 03/23/2015 due to positive margin no residual tumor " On 04/07/15 12:14 Siria Dunham wrote "Abnormal left breast mammogram Status post ultrasound-guided core needle biopsy 01/25/2015 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, progesterone receptor negative, HER-2/yury negative Status post lumpectomy and sentinel lymph node biopsy 03/03/2015 Pathologic stage [id number] Status post reexcision 03/23/2015 due to positive margin no residual tumor" On 04/07/15 12:12 Siria Dunham wrote "Abnormal left breast mammogram Status post ultrasound-guided core needle biopsy 01/25/2015 Invasive ductal carcinoma Jana receptor negative, progesterone receptor negative, HER-2/yury negative Status post lumpectomy and sentinel lymph node biopsy 03/03/2015 Pathologic stage [id number] Status post reexcision 03/23/2015 due to positive margin no residual tumor" Cardiomyopathy Chronic hyponatremia Diffuse large B-cell lymphoma HTN (hypertension) Morbid obesity with BMI of 40.0-44.9, adult On anticoagulant therapy eliquis daily Pericardial effusion Pleural effusion TIA (transient ischemic attack) Surgical History History of breast surgery 03/2015 reexcision of lump of left breast History of colonoscopy History of lumpectomy of left breast 02/2015 with sentinel lymph node biopsy History of needle biopsy 01/2018 left breast--malignant History of tooth extraction History of total hysterectomy with bilateral salpingo-oophorectomy (BSO) History of wisdom tooth extraction Status post biventricular pacemaker Family History Mother Family hx of colon cancer Other No family history of adverse response to anesthesia No pertinent family history Social History Smoking Status: Unknown if ever smoked Second Hand Exposure: Yes ( smoked); Hx Alcohol Use: No Hx Substance Use: No Preferred Language: Turkish Communication Ability: Effective Assistant Property Manager Required: No Beliefs That Will Affect Care: Scientology Current Living Situation: Spouse Feels Safe at Home: Yes Assistive Devices: None Review of Systems Review of Systems: Unobtainable due to reduced consciousness Physical Exam Physical Exam: GENERAL : No acute distress. Unresponsive but does appear comfortable on BiPAP. No use of accessory muscles EYES: No icterus, gaze conjugate NOSE: No evidence of epistaxis MOUTH: No lesions or candidiasis NECK: Supple LUNGS: CTA B/L, no wheezes, rales or rhonchi on BiPAP therapy HEART: Regular, rate controlled ABDOMEN: Soft, NT, ND, BS Present EXTREMITIES: Bilateral LE edema NEURO: Unresponsive Results & Data Results & Data ([facility]) Vital Signs (Past 12 Hours) Vital Signs Temp Pulse Pulse Resp BP BP Pulse Ox 04/27/22 10:08 91 H 30 H 91 04/27/22 09:12 36.4 C L 90 24 124/76 93 04/27/22 07:49 89 21 100 04/27/22 03:15 89 24 100 04/27/22 03:14 36.4 C L 89 20 113/76 98 04/27/22 02:17 89 123/79 04/27/22 02:05 89 31 H 123/79 100 04/27/22 00:28 89 04/26/22 23:34 89 94 04/26/22 23:07 36.8 C 88 38 H 128/82 95 O2 Del Method O2 Flow Rate FiO2 04/27/22 10:08 70 04/27/22 09:12 Nasal Cannula 3 04/27/22 07:49 40 04/27/22 03:15 50 04/27/22 03:14 BiPAP 04/27/22 02:17 04/27/22 02:05 BiPAP 50 04/27/22 00:28 04/26/22 23:34 50 04/26/22 23:07 Oxymask 4 Critical Care Results & Data Vital Signs (Past 12 Hours) Vital Signs Temp Pulse Pulse Resp BP BP Pulse Ox 04/27/22 10:08 91 H 30 H 91 04/27/22 09:12 36.4 C L 90 24 124/76 93 04/27/22 07:49 89 21 100 04/27/22 03:15 89 24 100 04/27/22 03:14 36.4 C L 89 20 113/76 98 04/27/22 02:17 89 123/79 04/27/22 02:05 89 31 H 123/79 100 04/27/22 00:28 89 04/26/22 23:34 89 94 04/26/22 23:07 36.8 C 88 38 H 128/82 95 O2 Del Method O2 Flow Rate FiO2 04/27/22 10:08 70 04/27/22 09:12 Nasal Cannula 3 04/27/22 07:49 40 04/27/22 03:15 50 04/27/22 03:14 BiPAP 04/27/22 02:17 04/27/22 02:05 BiPAP 50 04/27/22 00:28 04/26/22 23:34 50 04/26/22 23:07 Oxymask 4 Lab & Micro Results (Past 24 Hours) RBC 2.78 M/uL (3.93-5.22) L 04/27/22 WBC 5.42 K/ul (4.8-10.8) 04/27/22 Hgb 8.8 g/dl (12.0-16.0) L 04/27/22 Hct 28.8 % (34.1-44.9) L 04/27/22 MCV 103.6 fL (80.0-100.0) H 04/27/22 MCH 31.7 pg (25.0-34.0) 04/27/22 MCHC 30.6 g/dL (32.0-36.0) L 04/27/22 RDW Standard Deviation 76.0 fL (36.4-46.3) H 04/27/22 RDW Coefficient of Variation 22.0 % (11.5-14.5) H 04/27/22 Plt Count 67 K/uL (130-400) L 04/27/22 MPV 11.9 fL (9.4-12.3) 04/27/22 Nucleated Red Blood Cells % (auto) 7.9 % 04/27 Nucleated RBC Absolute Count (auto) 0.43 K/uL (0-0) H 04/05 09/23 Na 150 mmol/L (136-145) H 04/27/22 K 2.8 mmol/L (3.5-5.1) L 04/27/22 Cl 110 mmol/L (98-107) H 04/27/22 CO2 36 mmol/L (21-32) H 04/27/22 Anion Gap 4 (3-11) 04/27/22 BUN 46 mg/dl (6-23) H 04/27/22 Creatinine 0.70 mg/dl (0.6-1.2) 04/27/22 Estimated GFR ( Amer) 97.5 ml/min 04/27/22 Estimated GFR (Non-Af Amer) 84.2 ml/min 04/27/22 BUN/Creatinine Ratio 65.7 (10-20) H 04/27/22 Glu 169 mg/dl (70-99(Fasting)) H 04/27/22 Ca 7.6 mg/dl (8.5-10.1) L 04/27/22 Phosphorus Level 1.9 mg/dl (2.5-4.9) L 04/27/22 Mg 1.9 mg/dl (1.7-2.4) 04/27/22 04:47 Calcium Level 7.6 mg/dl (8.5-10.1) L 04/27/22 04:47 Arterial Blood pH 7.40 (7.35-7.45) 04/27/22 07:21 Arterial Blood Partial Pressure CO2 63 mmHg (35-46) H 04/27/22 07:21 Arterial Blood Partial Pressure O2 117 mmHg (80-95) H 04/27/22 07:21 Arterial Blood HCO3 39 mmol/L (19-24) H 04/27/22 07:21 Arterial Blood Base Excess 11.5 mEq/L (-9-1.8) H 04/27/22 07:21 Arterial Blood Oxygen Saturation 99.6 % (90-95) H 04/27/22 07:2 1 Blood Gas Oxygen Given 40% 04/27/22 07:21 Kristofer Test Pos (Pos) 04/27/22 07:21 Microbiology 04/22/22 06:36 Aerobic Blood Culture - Final Blood No growth in Aerobic bottle after 5 days. Anaerobic Blood Culture - Final No growth in Anaerobic bottle after 5 days. 04/22/22 06:45 Aerobic Blood Culture - Final Blood No growth in Aerobic bottle after 5 days. Anaerobic Blood Culture - Final No growth in Anaerobic bottle after 5 days. 04/20/22 16:33 Aerobic Blood Culture - Final Blood Staph aureus MRSA Anaerobic Blood Culture - Final No growth in Anaerobic bottle after 5 days. 04/20/22 16:33 Aerobic Blood Culture - Final Blood Staph aureus MRSA Anaerobic Blood Culture - Final No growth in Anaerobic bottle after 5 days. 04/21/22 05:56 Aerobic Blood Culture - Final Blood No growth in Aerobic bottle after 5 days. Anaerobic Blood Culture - Final No growth in Anaerobic bottle after 5 days. 04/21/22 05:52 Aerobic Blood Culture - Final Blood No growth in Aerobic bottle after 5 days. Anaerobic Blood Culture - Final No growth in Anaerobic bottle after 5 days. Diagnostic Findings (Past 24 Hours) Chest X-Ray 04/27/22 07:28 SINGLE VIEW CHEST CLINICAL HISTORY: Pulmonary edema. FINDINGS: An AP, portable, upright chest radiograph is compared to study dated 04/25/2022 and correlated with chest CT dated 04/06/2022. The examination is degraded by portable technique and patient rotation. A right PICC line is unchanged in position . A 2-lead cardiac pacemaker is unchanged in position and partially obscures the left mid chest. The heart is enlarged noting atherosclerotic calcification of the thoracic aorta. There is pulmonary vascular congestion and interstitial edema. There are layering pleural effusions with bibasilar consolidation. No pneumothorax is seen. The skeletal structures are osteopenic. There are healed right-sided rib fractures. IMPRESSION: 1. Cardiomegaly with evidence of congestive failure and pulmonary edema. This is similar to previous. 2. Layering pleural effusions and bibasilar consolidation. ACT 112: Negative or not required by law. Electronically signed by: Burke Hernandez M.D. 04/27/2022 8:17 AM I & O Totals 24 Hours 04/26/22 04/27/22 04/28/22 06:59 06:59 06:59 Intake Total 1506.517 / 0412.521 4763.666 / 3008.666 300 / 300 Output Total 2040 / 2040 4450 / 4450 Balance -533.483 / -533.483 -1441.334 / -1441.334 300 / 300 Cumulative 04/19/22 13:40 thru 04/27/22 10:23 Intake Total 19173.137 Output Total 47343 Balance 8624.137 RT Ventilator Mngmt (Last Documented) Ventilator Ordered Settings Respiratory Rate 30 04/27/22 10:08 Fraction of Inspired Oxygen 70 04/27/22 10:08 Ventilator - PT Measurements Respiratory Rate 30 PG Care Time/CCT Total # of Minutes Spent Total Time Spent with Patient: Total time spent is greater than 50% in coordination of care (as documented) at patient's floor/unit and/or counseling patient: 60 minutes including 20 minutes of [id number]-zz-[id number] discussion with the patient's family. Coding Level of Care Code Critical Care 1st 30-74 mins Diagnoses Pleural effusion J90 Pancytopenia D61.818 MRSA bacteremia R78.81; B95.62 Hypoxia R09.02 Diffuse large B-cell lymphoma C83.30 Heart failure with mid-range ejection fraction I50.22 Time Spent (min) 60
--- NOTE | 2022-04-27 13:28 | Hospitalist Progress Note ---
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 She is being managed for the following: (1) Acute hypernatremia: (2) Likely Toxic metabolic encephalopathy: (3) Altered mental status: Recent admission with hyponatremia that was thought secondary to hypervolemic hyponatremia and initially treated with 1.5 L fluid restriction, Lasix 20 mg twice daily, however Lasix was later discontinued secondary to hypotension Hypernatremia likely due to poor oral intake given her parotid swelling/ oral ulcers Admitting CT head:No acute intracranial hemorrhage, no acute infarction, no acute intracranial abnormality Encephalopathy likely secondary to hyponatremia, sepsis (4) Acute hypoxic respiratory failure ABG shows acute on chronic respiratory acidosis; likely due to reduced consciousness and risks for EDY. Chest x-ray shows increasing pulmonary edema along with bilateral pleural effusion Pulmonology consulted; no further interventions at the moment. Discussed with family; patient to be started on comfort care measures after family meeting. 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 Admitting CT soft tissue neck: Interval development of a right-sided parotitis. The right-sided lymphadenopathy has slightly improved. Mucosal thickening throughout the hypopharynx most pronounced at the right palatine tonsil persists. No significant airway compromise at this time. Multiple source of infection which includes MRSA bacteremia, parotitis, sacral wound ulcer and urinary tract infection. Admitting UA w/ UTI, UCx w/ pansensitive E. Coli Admitting Bl Cx MRSA, 04/20 Bl Cx MRSA, 04/21 and 04/22 Bl Cx no growth till date. Follow blood cultures. Admitting ECHO: echogenic mass (s/o clot/fibrinous material) w/ some mobility located in the pericardial space at the junction of the RA and RV. No evidence of vegetation. ID evaluated, agrees w/ 04/20 cefepime, flagyl and vanco. cefepime and flagyl for 2 weeks. Re-d/w ID 04/24 in detail w/ new updates -->> for MRSA infection on the background that pacer can't be removed -->> DC vanco, start Dapto and rifam pin for total of 6 weeks, CPK on 04/24 is 22, f/u cbc/cmp/cpk weekly, after 6 weeks of iv atb follow w/ suppressive therapy w/ doxy or bactrim, likely lifelong if PPM stays in. Since rifampin has dr- interaction w/ heidi, it will be changed to lovenox until she can take PO, Will start on dapto and rifampin 04/24. Continue on lovenox for now; Discussed with surgery to see if patient can under go bedside debridement for sacral ulcer. no currently plan due to multiple co morbidities D/w cardio 04/22 d/t recent pacer placement and MRSA bacteremia and abn ECHO-->prolonged iv atb therapy recommended, no KEEGAN d/t her comorbidities and being pacer dependent. Parotitis, ENT evaled, no signs of abscess formation, hence medical Mx. Watchful for infection progression/abscess formation. Cefepime and falgyl for 14 days total. PICC line was removed 04/20, then midline placed 04/20; Bl Cx neg from 04/21, PICC line placed 04/25, for TPN/IV antbiotics. (9) Diffuse large B-cell lymphoma: (10) Likely chemotherapy induced pancytopenia Oral Ulcers Hematuria On 04/04; patient had stroke alert for which CTA head and neck was done. Pathological bilateral cervical lymphadenopathy was seen. Patient underwent FNAC of left axillary lymph node on 04/07. She was diagnosed with diffuse large B-cell lymphoma. Oncology concerned she has rapidly progressive disease. Recent treatment with prednisone and dose of IV cyclophosphamide. Was also given Neupogen. Developed hypercalcemia and was given Zometa. CT neck on admission shows slight improvement in right-sided lymphadenopathy. RBC about stable, leucopenia slightly improved --> neutropenic precaution. Platelets improving, d/w oncology 04/22, ok to resume her anticoagulation. She has oral ulcers and hematuria likely 2/2 UTI as well. As per oncology, patient has other acute issues to be dealt with first before cancer treatment can be reinitiated. Will obtain CT chest without contrast on nonemergent basis. (11) Hyperglycemia: Secondary to D5 and high dose steroids as part of chemotherapy. Currently on lantus and novolog. Glycemic pharmacy on board. HbA1c- 5.7%. (12) Cardiomyopathy: (13) Paroxysmal A fib: Status post AV william ablation and biventricular pacemaker placement last admission. On Eliquis. 03/27/2022 echo: EF: 45-50%, mild global hypokinesis, mild concentric LVH, mildly dilated right ventricle, severe left atrial dilation, mild , mild MR, small pericardial effusion without evidence of tamponade Current paced rhythm on EKG Pt w/ anasarca likely multifactorial, monitor volume status, on lasix drip Lovenox 04/24, Resume metoprolol when able. (14) Elevated troponin: Likely demand ischemia 2/2 acute illness. (15) Other Chronic Medical Conditions: HTN, h/o Breast Cancer (s/p lumpectomy 2014), Recent hospitalization w/ noted low BPs, hold BP meds, resume metoprol when able, lasix drip, hold other bp meds. DVT Px: SCDs for now, eliquis when able. DNR/DNI (per pt's pobinh and dtr Yanely). Dispositioncontinue to be hospitalized due to multiple infection, neutropenia, thrombocytopenia, hypernatremia. Patient to be switched to comfort measure after family meeting. Family meeting done with patient's daughters, and son-in-law. They acknowledged that patient's overal condition. They want to keep her as comfortable as much as possible and stop any interventions that will prolong her suffering. They appreciate the medical team for the care that was provided to her. They want to continue her on antibiotics; stop other medications which includes TPN, Lasix drip and IV fluids. Labs are discontinued as well. Comfort measures are ordered. Patient to be started on Dilaudid drip and titrate it to her comfort. Discontinue hat parts cutter machine . Admission and Anticipated Discharge Date Admission Date: April 19, 2022 Subjective Patient seen and examined at bedside. Overnight, patient developed respiratory distress. ABG showed acute on chronic respiratory acidosis. Patient was placed on BiPAP overnight. Patient was somnolent. Minimally respond to any verbal command. Review of Systems Review of Systems: Unobtainable due to reduced consciousness Physical Exam Physical Exam: Constitutional: Lethargic, ill-appearing. Head: Right-sided cheek swelling; tender on palpation. Mouth-multiple sores present Neck: trachea midline, no thyromegaly normal visual inspection Respiratory: Decreased breath sound up to mid lung best bilaterally. Cardiovascular: RRR, no murmur, no edema Vessels: no JVD or carotid bruit Chest: normal inspection of chest Abdomen: distended; non-tender. Catalan in place with pinkish urine. Musculoskeletal: no cyanosis or clubbing, extremities motor strength 3/5. Anasarca present. Skin: no rashes, warm and dry normal turgor Neurologic: non-focal. Psychiatric: responds to voice; follows commands intermittently. : deferred Results & Data Results & Data ([facility]) Vital Signs (Past 12 Hours) Vital Signs Temp Pulse Pulse Pulse Resp BP BP 04/27/22 12:00 36.7 C 91 H 20 130/75 04/27/22 11:10 04/27/22 10:08 91 H 30 H 04/27/22 09:12 36.4 C L 90 24 124/76 04/27/22 07:49 89 21 04/27/22 03:15 89 24 04/27/22 03:14 36.4 C L 89 20 113/76 04/27/22 02:17 89 123/79 04/27/22 02:05 89 31 H 123/79 Pulse Ox O2 Del Method O2 Flow Rate FiO2 04/27/22 12:00 100 BiPAP 04/27/22 11:10 100 50 04/27/22 10:08 91 70 04/27/22 09:12 93 Nasal Cannula 3 04/27/22 07:49 100 40 04/27/22 03:15 100 50 04/27/22 03:14 98 BiPAP 04/27/22 02:17 04/27/22 02:05 100 BiPAP 50 Laboratory Results Laboratory Results WBC 5.42 K/ul (4.8-10.8) 04/27/22 04:47 RBC 2.78 M/uL (3.93-5.22) L 04/27/22 04:47 Hgb 8.8 g/dl (12.0-16.0) L 04/27/22 04:47 POC Hgb 10.2 g/dl (12.0-16.0) L 04/26/22 23:22 Hct 28.8 % (34.1-44.9) L 04/27/22 04:47 POC Hct 30 % (37-47) L 04/26/22 23:22 MCV 103.6 fL (80.0-100.0) H 04/27/22 04:47 MCH 31.7 pg (25.0-34.0) 04/27/22 04:47 MCHC 30.6 g/dL (32.0-36.0) L 04/27/22 04:47 RDW Std Deviation 76.0 fL (36.4-46.3) H 04/27/22 04:47 RDW Coeff of Carlita 22.0 % (11.5-14.5) H 04/27/22 04:47 Plt Count 67 K/uL (130-400) L 04/27/22 04:47 MPV 11.9 fL (9.4-12.3) 04/27/22 04:47 Immature Gran % (Auto) 5.0 % 04/26/22 06:34 Neut % (Auto) 86.5 % 04/26/22 06:34 Lymph % (Auto) 2.8 % 04/26/22 06:34 [place] % (Auto) 4.7 % 04/26/22 06:34 Eos % (Auto) 0.0 % 04/26/22 06:34 Baso % (Auto) 1.0 % 04/26/22 06:34 Reticulocyte % (Auto) 0.5 % (0.5-2.0) 04/22/22 06:36 Neut # (Auto) 5.35 K/uL (1.4-6.5) 04/26/22 06:34 Lymph # (Auto) 0.17 K/uL (1.2-3.4) L 04/26/22 06:34 [place] # (Auto) 0.29 K/uL (0.24-0.82) 04/26/22 06:34 Eos # (Auto) 0.00 K/uL (0-0.50) 04/26/22 06:34 Baso # (Auto) 0.06 K/uL (0-0.2) 04/26/22 06:34 Reticulocyte # 0.02 10^6/uL (0.02-0.10) 04/22/22 06:36 Immature Gran # (Auto) 0.31 K/uL (0.00-0.02) H 04/26/22 06:34 Absolute Nucleated RBC 0.43 K/uL (0-0) H 04/27/22 04:47 Nucleated RBC % (auto) 7.9 % 04/27/22 04:47 Neutrophils % (Manual) 92 % 04/26/22 06:34 Band Neutrophils % Cancelled 04/22/22 06:36 Lymphocytes % (Manual) 3 % 04/26/22 06:34 Prolymphocyte % Cancelled 04/22/22 06:36 Reactive Lymphs % (Man) Cancelled 04/22/22 06:36 Monocytes % (Manual) 3 % 04/26/22 06:34 Eosinophils % (Manual) Cancelled 04/22/22 06:36 Basophils % (Manual) Cancelled 04/22/22 06:36 Metamyelocytes % (Man) 3 % 04/26/22 06:34 Myelocytes % (Man) Cancelled 04/22/22 06:36 Promyelocytes % (Man) Cancelled 04/22/22 06:36 Blast Cells % (Manual) Cancelled 04/22/22 06:36 Plasma Cell % (Manual) Cancelled 04/22/22 06:36 Other Cells % Cancelled 04/22/22 06:36 Nucleated RBC % 11 % 04/26/22 06:34 Neutrophils # (Manual) 2.76 K/uL (1.4-6.5) 04/25/22 07:14 Band Neutrophils # Cancelled 04/22/22 06:36 Total Absolute Neuts Cancelled 04/22/22 06:36 Lymphocytes # (Manual) 0.19 K/uL (1.2-3.4) L 04/25/22 07:14 Prolymphocyte # Cancelled 04/22/22 06:36 Reactive Lymphs # Cancelled 04/22/22 06:36 Total Abs Lymphocytes Cancelled 04/22/22 06:36 Monocytes # (Manual) 0.06 K/uL (0.24-0.82) L 04/25/22 07:14 Eosinophils # (Manual) Cancelled 04/22/22 06:36 Basophils # (Manual) Cancelled 04/22/22 06:36 Metamyelocytes # (Man) 0.13 K/uL (0-0) H 04/25/22 07:14 Myelocytes # (Manual) Cancelled 04/22/22 06:36 Promyelocytes # (Man) Cancelled 04/22/22 06:36 Blast Cells # (Man) Cancelled 04/22/22 06:36 Plasma Cell # (Manual) Cancelled 04/22/22 06:36 Other Cells # Cancelled 04/22/22 06:36 Nucleated RBCs # (Man) Cancelled 04/22/22 06:36 Hypersegmented Neuts Cancelled 04/22/22 06:36 Hyposegmented Neuts Cancelled 04/22/22 06:36 Hypogranular Neuts Cancelled 04/22/22 06:36 Large Granular Lymphs Cancelled 04/22/22 06:36 # Lrg Granular Lymphs Cancelled 04/22/22 06:36 Hairy Cells Cancelled 04/22/22 06:36 Smudge Cells Cancelled 04/22/22 06:36 Toxic Granulation 1+ 04/25/22 07:14 Toxic Vacuolation Cancelled 04/22/22 06:36 Dohle Bodies 1+ 04/25/22 07:14 Dolores Rods Cancelled 04/22/22 06:36 Platelet Estimate Decreased (Normal) L 04/27/22 04:47 Hypogranular Platelets Cancelled 04/22/22 06:36 Clumped Platelets Cancelled 04/22/22 06:36 Giant Platelets Cancelled 04/22/22 06:36 Platelet Satelliting Cancelled 04/22/22 06:36 RBC Morphology Cancelled 04/22/22 06:36 Polychromasia 1+ 04/25/22 07:14 Hypochromasia Cancelled 04/22/22 06:36 Poikilocytosis Cancelled 04/22/22 06:36 Basophilic Stippling Occasional 04/26/22 06:34 Anisocytosis Present 04/25/22 07:14 Microcytosis Cancelled 04/22/22 06:36 Macrocytosis Cancelled 04/22/22 06:36 Spherocytes Cancelled 04/22/22 06:36 Pappenheimer Bodies Cancelled 04/22/22 06:36 Sickle Cells Cancelled 04/22/22 06:36 Target Cells Cancelled 04/22/22 06:36 Tear Drop Cells Cancelled 04/22/22 06:36 Ovalocytes Cancelled 04/22/22 06:36 Stomatocytes Cancelled 04/22/22 06:36 [place] Bodies Cancelled 04/22/22 06:36 Echinocytes Cancelled 04/22/22 06:36 Acanthocytes (Spur) Cancelled 04/22/22 06:36 Rouleaux Cancelled 04/22/22 06:36 RBC Agglutinates Cancelled 04/22/22 06:36 Schistocytes Cancelled 04/22/22 06:36 Sezary Cell Cancelled 04/22/22 06:36 Haptoglobin 23 mg/dL (43-212) L 04/22/22 09:15 PT 14.9 Seconds (9.0-12.0) H 04/26/22 06:34 INR 1.4 (0.9-1.1) H 04/26/22 06:34 APTT 31.5 Seconds (21.0-31.0) H 04/19/22 15:19 PTT Ratio 1.1 04/19/22 15:19 Sample Site R Radial 04/26/22 23:22 POC pH 7.23 (7.35-7.45) L 04/26/22 23:22 POC pCO2 82 mmHg (35-46) H 04/26/22 23:22 POC pO2 72 mmHg (80-95) L 04/26/22 23:22 POC HCO3 34 gregory/L (19-24) H 04/26/22 23:22 POC Total CO2 37 mmol/L (24-31) H 04/26/22 23:22 POC Base Excess 7.0 gregory/L (-9-1.8) H 04/26/22 23:22 ABG pH 7.40 (7.35-7.45) 04/27/22 07:21 ABG pH (Temp Correct) 7.237 (7.35-7.45) L 04/26/22 23:22 ABG pCO2 63 mmHg (35-46) H 04/27/22 07:21 ABG pCO2 (Temp Corrct 80 mmHg (35-46) H 04/26/22 23:22 ABG pO2 117 mmHg (80-95) H 04/27/22 07:21 POC ABG pO2 at Pt Temp 69 04/26/22 23:22 ABG HCO3 39 mmol/L (19-24) H 04/27/22 07:21 POC ABG O2 Sat 90.0 % (90-95) 04/26/22 23:22 ABG O2 Saturation 99.6 % (90-95) H 04/27/22 07:21 ABG Base Excess 11.5 mEq/L (-9-1.8) H 04/27/22 07:21 Kristofer Test Pos (Pos) 04/27/22 07:21 VBG pH 7.43 (7.36-7.41) H 04/19/22 17:00 VBG pCO2 62 mmHg (38-50) H 04/19/22 17:00 VBG pO2 31 mmHg 04/19/22 17:00 VBG HCO3 41 mmol/L 04/19/22 17:00 VBG O2 Saturation < 60.0 % 04/19/22 17:00 VBG Base Excess 13.9 mEq/L 04/19/22 17:00 Oxygen Given 40% 04/27/22 07:21 O2 Delivery Device SimpleMask 04/26/22 23:22 POC Sodium 153 mmol/L (135-144) H 04/26/22 23:22 Sodium 150 mmol/L (136-145) H 04/27/22 04:47 POC Potassium 3.0 mmol/L (3.3-5.0) L 04/26/22 23:22 Potassium 2.8 mmol/L (3.5-5.1) L 04/27/22 04:47 Chloride 110 mmol/L (98-107) H 04/27/22 04:47 Carbon Dioxide 36 mmol/L (21-32) H 04/27/22 04:47 Anion Gap 4 (3-11) 04/27/22 04:47 BUN 46 mg/dl (6-23) H 04/27/22 04:47 Creatinine 0.70 mg/dl (0.6-1.2) 04/27/22 04:47 Est Cr Clr Drug Dosing 84.3 ml/min 04/27/22 04:47 Est GFR ( Amer) 97.5 ml/min 04/27/22 04:47 Est GFR (Non-Af Amer) 84.2 ml/min 04/27/22 04:47 BUN/Creatinine Ratio 65.7 (10-20) H 04/27/22 04:47 Glucose 169 mg/dl (70-99(Fasting)) H 04/27/22 04:47 POC Glucose 143 mg/dl (70-99) H 04/27/22 11:32 Estimat Average Glucose 117 mg/dl 04/20/22 05:39 Hemoglobin A1c 5.7 % (4.5-5.6) H 04/20/22 05:39 Lactate 1.3 mmol/L (0.4-2.0) 04/20/22 05:39 Uric Acid 4.2 mg/dl (2.6-7.2) 04/19/22 21:24 Calcium 7.6 mg/dl (8.5-10.1) L 04/27/22 04:47 Phosphorus 1.9 mg/dl (2.5-4.9) L 04/27/22 04:47 Magnesium 1.9 mg/dl (1.7-2.4) 04/27/22 04:47 Total Bilirubin 4.5 mg/dl (0.2-1.0) H 04/22/22 06:36 Direct Bilirubin 2.7 mg/dl (0-0.2) H 04/19/22 15:19 AST 23 U/L (13-39) 04/22/22 06:36 ALT 23 U/L (7-52) 04/22/22 06:36 Alkaline Phosphatase 48 U/L (34-104) 04/22/22 06:36 Ammonia 38.0 umol/L (18-72) 04/23/22 21:27 Total Creatine Kinase 22 U/L (26-192) L 04/24/22 06:05 Troponin I High Sens 102.3 pg/ml (0-14) H* 04/19/22 21:24 Total Protein 4.6 gm/dl (6.0-8.3) L 04/22/22 06:36 Albumin 2.2 gm/dl (3.4-5.0) L 04/22/22 06:36 Globulin 2.4 gm/dl (2.5-4.0) L 04/22/22 06:36 Albumin/Globulin Ratio 0.9 (0.9-2) 04/22/22 06:36 Procalcitonin 0.18 ng/ml (0-0.5) 04/19/22 17:00 TSH 1.501 uIu/ml (0.300-4.500) 04/19/22 15:19 Urine Color [place] 04/19/22 18:14 Urine Appearance Turbid (Clear) A 04/19/22 18:14 Urine pH 5.5 (4.5-7.5) 04/19/22 18:14 Ur Specific [place] 1.023 (1.000-1.030) 04/19/22 18:14 Urine Protein 2+ (Negative) H 04/19/22 18:14 Urine Glucose (UA) Trace (Negative) H 04/19/22 18:14 Urine Ketones Negative (Negative) 04/19/22 18:14 Urine Blood 3+ (Negative) H 04/19/22 18:14 Urine Nitrite Positive (Negative) A 04/19/22 18:14 Urine Bilirubin 1+ (Negative) H 04/19/22 18:14 Urine Urobilinogen Positive (Negative) H 04/19/22 18:14 Ur Leukocyte Esterase 3+ (Negative) H 04/19/22 18:14 Urine WBC (Auto) >30 /hpf (0-5) H 04/19/22 18:14 Urine RBC (Auto) >30 /hpf (0-4) H 04/19/22 18:14 U Hyaline Cast (Auto) 1-5 /lpf (0-5) 04/19/22 18:14 U Epithel Cells (Auto) 10-20 /lpf (0-5) H 04/19/22 18:14 Urine Bacteria (Auto) 4+ (Negative) H 04/19/22 18:14 Nasal Screen MRSA (PCR) Positive (Negative) A 04/20/22 17:21 Vancomycin Trough 22.4 mcg/ml (10-20) H 04/24/22 10:40 Random Vancomycin 27.1 mcg/ml (10-20) H* 04/23/22 06:48 IgG 613.2 mg/dl (635-1741) L 04/20/22 12:58 IgA 444.5 mg/dl (70-400) H 04/20/22 12:58 IgM 63.8 mg/dl (45-281) 04/20/22 12:58 SARS-CoV-2, RNA, NAAT NEGATIVE (NEGATIVE) 04/19/22 17:47 Staphylococcus sp PCR DETECTED (NotDetected) A 04/19/22 15:20 Staph aureus (PCR) DETECTED (NotDetected) A 04/19/22 15:20 mecA/C & MREJ Resist Gene MRSA DETECTED (NotDetected) A* 04/19/22 15:20 Bld Cult ID Panel PCR See PCR Comment (NotDetected) 04/19/22 15:20 Blood Parasites ID Cancelled 04/22/22 06:36 Impressions Soft Tissue Neck CT 04/19/22 14:53 CT soft tissue neck w con HISTORY: R facial swelling TECHNIQUE: Multiaxial CT images of the neck were performed following the intravenous administration of contrast. Sagittal and coronal reformations were performed at the workstation by the radiologist. COMPARISON STUDY: Neck CTA 04/05/2022. FINDINGS: There is again noted right-sided lymphadenopathy. This has improved in the interval. Dominant lymph node currently measures 2.0 x 1.0 cm this producing measured 2.4 x 2.0 cm. Decrease in size in the lymphadenopathy/soft tissue mass adjacent to the angle of the right hemimandible. This currently measures 1.9 cm, previously measuring 3.1 cm. Moderate right pleural effusion is again noted. The mastoid air cells are clear. Near complete opacification the left posterior ethmoid air cells and left sphenoid sinus. This is new from the prior study. R ight mandibular condyle deformity, unchanged. No suspicious lytic or blastic osseous lesions. Normal thyroid gland. Partially visualized left-sided pacemaker. Mild mucosal thickening throughout the majority of the hypopharynx most pronounced at the right palatine tonsil. This is similar to the prior study. The epiglottis is normal in thickness. No prevertebral fluid collections identified. Enlargement and increased density with adjacent fat stranding within the right parotid gland. This is consistent with a right-sided parotitis. This is new from the prior study. There is subcutaneous edema within the right lateral and anterior neck. Small foci of gas within the neck appear to correspond to intravenous contrast and may be due to prior line insertion. 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 Moderate calcified plaque within the bilateral carotid bifurcations without significant stenosis. No loculated fluid collections to suggest an abscess. IMPRESSION: 1. Interval development of a right-sided parotitis. 2. The right-sided lymphadenopathy has slightly improved. 3. Mucosal thickening throughout the hypopharynx most pronounced at the right palatine tonsil persists. No significant airway compromise at this time. 4. No change in the moderate right pleural effusion. ACT 112: Negative or not required by law. Electronically signed by: German Lemon M.D. 04/19/2022 4:43 PM Abdomen/Pelvis CT 04/19/22 21:15 CT SCAN OF THE ABDOMEN AND PELVIS WITHOUT IV CONTRAST CLINICAL HISTORY: Lymphoma. COMPARISON STUDY: Abdominal CT dated 04/06/2022. TECHNIQUE: CT scan of the abdomen and pelvis is performed from the lung bases to the proximal femora. Images are reviewed in the axial, sagittal, and coronal planes. IV contrast was not administered for this examination as per the referring clinician. Note that the examination was performed in significantly suboptimal fashion without oral or IV contrast. There is also motion artifact, a s well as streak artifact from the arms which could not be elevated of the abdomen. A dose lowering technique was utilized adhering to the principles of ALARA. CT DOSE: 1702.02 mGy.cm FINDINGS: Lung bases: The heart is enlarged noting a small pericardial effusion. The coronary arteries are densely calcified. Pacemaker leads are in place. There are [id number] pleural effusions with dense bibasilar consolidation. Liver: The unenhanced liver is normal in size, contour, and attenuation. There is no intrahepatic biliary ductal dilatation. A 12 mm cyst is noted in the left lobe. Gallbladder: Vicarious excreted contrast. The gallbladder. Spleen: Normal in size and attenuation, measuring 10.2 cm in length. There is a calcified splenic granuloma. Pancreas: Trace fluid is seen adjacent to pancreatic tail. The unenhanced pancreas is moderately atrophic and grossly unremarkable. Adrenal glands: Unremarkable. Kidneys: The unenhanced kidneys are normal in size and without hydronephrosis. Excreted IV contrast is present within the renal collecting systems. This degrades assessment for nephrolithiasis. There is no evidence of contour deforming renal mass lesion. Abdominal vasculature: The abdominal aorta is normal in course and caliber noting advanced atherosclerotic calcification. Bowel: There is no bowel obstruction. Residual enteric contrast is noted in the colon. There is mild colonic diverticulosis without CT evidence of acute diverticulitis. The appendix is well-visualized and normal. Peritoneum: There is no intraperitoneal free air or abdominal ascites. There is mesenteric edema. There is laxity of the ventral wall the pelvis with diastases of the rectus musculature and protrusion of abdominal contents. There is a 1.6 cm focus of irregular nodularity within the pelvic mesentery on image #[id number]. A 1.4 cm irregular nodule seen on image #339. These have significantly decreased in size as compared to 04/06/2022. Lymphadenopathy: None. Pelvic viscera: The bladder is decompressed around a Catalan catheter and could not be assessed. There is intraluminal gas, as well as excreted IV contrast within the bladder. The uterus is surgically absent. No adnexal lesion is seen. Nodularity along the left aspect of the vaginal cuff has almost completely resolved. Skeletal structures: The skeletal structures are osteopenic. There is moderate lumbosacral spondylosis. No lytic or blastic lesions are seen. Soft tissues: There is mild body wall edema. IMPRESSION: 1. Significantly suboptimal examination bilateral and IV contrast. There is also streak and motion artifact. 2. Mesenteric nodules seen on 04/06/2022 have significantly decreased in size from previous. Nodularity along the left vaginal cuff has almost completely resolved. 3. There are small to moderate pleural effusions with dense bibasilar consolidation. This has significantly increased as compared to 04/06/2022. Clinical correlation will be required. 4. Trace nonspecific fluid is seen adjacent to the pancreatic tail. Correlate with serum lipase levels. 5. Additional findings as above. ACT 112: Negative or not required by law. Electronically signed by: Burke Hernandez M.D. 04/20/2022 7:[address] 04/24/22 01:01 CT SCAN OF THE BRAIN WITHOUT IV CONTRAST CLINICAL HISTORY: Lethargy. COMPARISON STUDY: CT of the brain dated 04/19/2022. TECHNIQUE: Unenhanced axial CT scan of the brain is performed from the vertex to the skull base. A dose lowering technique was utilized adhering to the principles of ALARA. CT DOSE: 614.27 mGy.cm FINDINGS: Brain parenchyma: There is age-related involutional change noting mild to moderate subcortical and periventricular microangiopathic disease. A focus of left cerebellar encephalomalacia is consistent with a remote insult. There is no hemorrhage, mass effect, or evidence of acute territorial ischemia by CT criteria. Sanchez-white matter differentiation is preserved. No extra-axial fluid collection is seen. Ventricles, sulci, cisterns: Prominent secondary to involutional change. Intracranial vasculature: There is atherosclerotic calcification of the cavernous carotid and vertebral arteries. Calvarium: Unremarkable. Sinuses and mastoids: There is moderate mucosal thickening in the left sphenoid sinus. Mild mucosal thickening is present in the left ethmoid sinuses. The remaining paranasal sinuses are clear. The mastoid air cells are well pneumatized. Orbits: The bony orbits are grossly intact. IMPRESSION: There is no hemorrhage, mass effect, or evidence of acute territorial ischemia by CT criteria. ACT 112: Negative or not required by law. Electronically signed by: Burke Hernandez M.D. 04/24/2022 7:25 AM Videofluoroscopic Swallow 04/25/22 11:00 FL video swallow CLINICAL HISTORY: 76 years-old Female with assess for aspiration. Dysphasia with possible aspiration TECHNIQUE: Video fluoroscopic evaluation of swallowing was performed in the AP and lateral projections by the speech pathology staff. The patient is fed nectar-thick and thin liquid, mildly thick and pudding consistencies. FLUOROSCOPY TIME: 3.5 minutes. COMPARISON STUDY: Video swallow study 04/06/2022 FINDINGS: There is aspiration and cough with thin liquid barium. No additional aspiration identified throughout the study. Mild residue within the vallecula. Spondylitic spurring of the cervical spine. IMPRESSION: 1. Aspiration with thin liquid barium. 2. Please see the speech pathologist report for detailed findings and recommendations. ACT 112: Negative or not required by law. Electronically signed by: Matthias Goins M.D. 04/25/2022 1:03 PM Chest X-Ray 04/27/22 07:28 SINGLE VIEW CHEST CLINICAL HISTORY: Pulmonary edema. FINDINGS: An AP, portable, upright chest radiograph is compared to study dated 04/25/2022 and correlated with chest CT dated 04/06/2022. The examination is degraded by portable technique and patient rotation. A right PICC line is unchanged in position . A 2-lead cardiac pacemaker is unchanged in position and partially obscures the left mid chest. The heart is enlarged noting atherosclerotic calcification of the thoracic aorta. There is pulmonary vascular congestion and interstitial edema. There are layering pleural effusions with bibasilar consolidation. No pneumothorax is seen. The skeletal structures are osteopenic. There are healed right-sided rib fractures. IMPRESSION: 1. Cardiomegaly with evidence of congestive failure and pulmonary edema. This is similar to previous. 2. Layering pleural effusions and bibasilar consolidation. ACT 112: Negative or not required by law. Electronically signed by: Burke Hernandez M.D. 04/27/2022 8:17 AM
[2022-04-27 14:29] LABS: Calcium 7.7 mg/dl (8.5-10.1); Creatinine Clr Calc Pharmacy 80.3 ml/min; Est GFR (African American) 92.7 ml/min; Potassium 3.3 mmol/L (3.5-5.1)
[2022-04-27] MEDS ORDERED: haloperidoL 1 MG TAB PO PRN (15:42)
[2022-04-27] MEDS ORDERED: MoRPHine SULFATE 2 MG/ML CARP IV PRN (15:42)
[2022-04-27] MEDS ORDERED: ONDANSETRON INJ 2 MG/ML 2 ML VIAL IV PRN (15:42)
[2022-04-27] MEDS ORDERED: LORazepam 0.5 MG TAB PO PRN (15:42)
[2022-04-27] MEDS ORDERED: ONDANSETRON 4 MG OD TAB SL PRN (15:42)
[2022-04-27] MEDS ORDERED: LORazepam 0.5 MG in SYRINGE 0 ML IV PRN (15:42)
[2022-04-27] MEDS ORDERED: GLYCOPYRROLATE 0.2 MG/ML VIAL IV PRN (15:42)
[2022-04-27] MEDS ORDERED: HYDROmorphone BOLUS from BAG IV PRN (15:42)
[2022-04-27] MEDS ORDERED: HYDROmorphone/NSS 100 MG/100 ML BAG IV SCH (15:45)
[2022-04-27] MEDS ORDERED: LORazepam 1 MG in SYRINGE 0 ML IV PRN (15:46)
[2022-04-27] MEDS ORDERED: CENTRAL TPN IV SCH (16:00)
[2022-04-27] MEDS ORDERED: AMINO ACID 8% IV SCH (16:00)
[2022-04-27] MEDS ORDERED: CLINOLIPID 20% IV FAT EMULSION 250 ML IV SCH (16:00)
[2022-04-27] MEDS ORDERED: [UNRECOGNIZED DRUG - OTHER] IV SCH (16:00)
[2022-04-27] MEDS: MoRPHine SULFATE 2 MG/ML CARP IV PRN (22:24)
[2022-04-28] MEDS: MoRPHine SULFATE 2 MG/ML CARP IV PRN ×2 (00:17→02:45)
[2022-04-28] MEDS: metroNIDAZOLE 500 MG/100 ML BAG IV SCH (04:55)
--- NOTE | 2022-04-28 05:30 | Death Pronouncement Note ---
Date of Service April 28, 2022 Pronouncement Note Admission Date Admission Date: April 19, 2022 Date and Time of Date of : 04/28/22 Time of : 05:20 Contributing Factors (1) Toxic metabolic encephalopathy: Additional Data Confirmation of : no pulse, no respirations, no heart sounds and pupils fixed and dilated Family: contacted Attending physician: Kiran Cali MD
[2022-04-28] MEDS: CLOTRIMAZOLE 10 MG TROCHE BUCCAL SCH (06:13)
--- NOTE | 2022-04-28 16:46 | Discharge Summary ---
Date of Service April 28, 2022 Admission HPI Per Admitting Provider Patient is 76-year-old female with PMH PAF, HTN, dyslipidemia, h/o breast cancer, recent diagnosis of B-cell lymphoma presented to ER from [facility] right sided facial swelling x 1 day. Unable to obtain history from patient at this time secondary to mental status. Prior inpatient and outpatient chart review and patient with recent complicated hospital course during [facility] admission on 03/26/2022-04/18/2022 for SOB, weakness, LE edema. Was found to be in A. fib RVR, hyponatremia, pulmonary edema. Had persistent atrial fibrillation with RVR during admission. 03/27/2022 echo: EF: 45-50%, mild global hypokinesis, mild concentric LVH, mildly dilated right ventricle, severe left atrial dilation, mild , mild MR, small pericardial effusion without evidence of tamponade Initially treated with Cardizem drip then amiodarone. She had cardioversion in 03/30/2022. Had biventricular pacemaker implanted on 04/03/22 and had AV william ablation on 04/04/22. After the ablation patient had a right- sided facial droop, dysarthria, RUE weakness. Initial CT head without acute intracranial abnormality. MRI brain was unable to be completed secondary to recent pacemaker placement. Neurology thought patient likely had TIA. CTA head and neck showed bilateral pathologic cervical lymphadenopathy greater on the right, consistent with neoplastic process or lymphoma, potential primary neoplasm right palatine tonsils. Speech therapy evaluation, video swallow study did not show aspiration, and showed esophageal dysmotility. Recommended slippery diet, soft foods and aspiration precautions. Hyponatremia was thought s econdary to hypervolemic hyponatremia and was on 1.5 L fluid restriction, Lasix [address] chest: Supraclavicular, left axillary and mediastinal lymphadenopathy, representing either metastatic disease or lymphoma. Bilateral pleural effusions. 04/06/2022: Thoracentesis, total 1.3L removed. Cytology showed lymphocytes and reactive mesothelial cells and red blood cells, no malignant cells seen. Oncology consulted. Patient had left axillary lymph node biopsy. 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 Noted thrombocytopenia that suggested marrow involvement. Oncology concerned she has rapidly progressive disease. Was treated with prednisone and dose of IV cyclophosphamide. Was also given Neupogen. Developed hypercalcemia and was given Zometa. Difficult to manage secondary to hypotension, edema, developed hypernatremia. Patient discharged 04/18/2022 to [facility] for the hope of improving p erformance status in preparation for more comprehensive chemo. Since being at [facility] patient with increased lethargy, complaints of pain with swallowing, shortness of breath with trying to stand. Reports of altered mental status. It is reported patient had decreased appetite and poor oral intake. It is reported patient had episode of epistaxis at [facility]. Labs from this morning with sodi um of 153, glucose 298, calcium 9.6, BUN 60, creatinine 0.6, WBC 11, Hgb 12, platelets unable to be determined secondary to clumping. Patient was referred to ER for further evaluation. Admission Exam Per Admitting Provider General: +lethargic, +ill, frail appearing elderly female, overweight Head: normocephalic, atraumatic Eyes: PERRL, EOM's intact, conjunctiva non-injected, anicteric Face: +Right sided facial swelling, +firm to palpation +tenderness to palpation, no skin erythema ENT: normal inspection external ears, nose, mucous membranes dry, +suspected dried blood to palate, lips dry and cracked Neck: trachea midline, +palpable tender cervical lymph nodes bilaterally Lungs: normal respiratory effort, diminished breath sounds bilateral bases, 92% on 3L oxygen CV: RRR, no murmur, 1-2+ pretibial edema Abd: normal BS, soft, +palpable mass RUQ, denies tenderness to palpation Ext: no cyanosis, no apparent calf tenderness Neuro: +lethargic, awakens to voice. States first name only, +diffuse weakness bilateral upper and lower extremities Skin: warm, dry, +macerated skin abdominal and groin skin folds Principal Diagnosis (1) Acute hypernatremia: (2) Likely Toxic metabolic encephalopathy: (3) Altered mental status: (4) Acute hypoxic respiratory failure (5) Sepsis POA: (6) Urinary tract infection: (7) MRSA bacteremia: (8) Parotitis: (9) Diffuse large B-cell lymphoma: (10) Likely chemotherapy induced pancytopenia Discharge Exam Discharge Data Allergies Allergy/AdvReac Type Severity Reaction Status Date / Time No Known Allergies Allergy Verified 04/19/22 17:29 Consultations 04/19/22 18:10 ED Decision to Admit Stat 04/19/22 21:09 Consult Oncology Routine 04/20/22 08:00 Consult Otolaryngology (Head and Neck) Routine Consult Palliative Care Routine 04/20/22 15:59 Consult General Surgery Routine 04/20/22 16:01 Consult Infectious Diseases Routine 04/22/22 08:29 Consult Cardiology Routine 04/24/22 15:48 Consult Nephrology Routine 04/27/22 09:50 Consult Pulmonology Routine Ordered Studies 04/19/22 14:50 CT head/brain wo con Stat 04/19/22 14:53 CT neck soft tissues [CT soft tissue neck w con] Stat 04/19/22 21:15 CT Abd and Pelvis [CT abd pelvis wo con] Urgent 04/24/22 01:01 CT head/brain wo con Urgent 04/25/22 11:00 FL video swallow Routine Hospital Course (1) Toxic metabolic encephalopathy: Plan 76-year-old female with PMH of PAF s/p 04/03/22 pacer w/ ventricular lead and 04/04/22 AV node ablation, HTN, dyslipidemia, h/o breast cancer, recent diagnosis of diffuse, large B-cell lymphoma, and recent TIA (04/04/22) presented to ER 04/19/22 from [facility] w/ right sided facial swelling, lethargy x 1 day [employer]. Patient was found to have hypernatremia, MRSA bacteremia, UTI and parotitis for which she was treated with IV fluids and antibiotics. She was not able to tolerate anything p.o. due to oral ulcer; TPN was started. ENT, oncology, cardiology, infectious disease, surgery were consulted for comanagement. Patient also had pancytopenia for which she received Neupogen. Patient did not respond well to the interventions and her mentation continued to decline. She had acute hypoxic respiratory failure requiring BiPAP. Chest x- ray showed extensive pulmonary edema and pleural effusion. Pulmonology was consulted for comanagement. Discussion was done with her family regarding though overall poor prognosis. Family acknowledged patient's overall deteriorating condition and agreed for comfort care measures. Comfort care measures were initiated on 04/27; patient on 04/28 at 5:20 AM. Total Time Total Time Spent Total Time Spent (In Minutes): 10 mins Total Time Includes: Examination of the Patient, Discharge Planning, Medication Reconciliation, Communication With Other Providers and Other Discharge Plan Discharge Items Patient Disposition: Other Date/Time: 04/28/22 05:20
--- NOTE | 2022-06-07 14:49 | Coding Query ---
SEPSIS To promote full compliance with coding requirements relating to patient care, physician participation is requested in all cases of tone artist apprentice uncertainty. Please assist us with the question(s) below: In responding to this query, please exercise your independent professional judgement. The fact that a question is asked does not imply that any particular answer is desired or expected. We appreciate your clarification on this issue. Throughout the medical record, you have clearly documented a localized infection and your patient has clinical evidence of a generalized sepsis or severe sepsis. The term urosepsis is a nonspecific entity and is coded as an UTI. If the patient has sepsis, severe sepsis, from an urinary source or some other source, please clarify in your response below. The medical record reflects the following clinical findings: (With dates as appropriate) (Body temperature of >38.3 C(101 F) or <36 C(96.8F), pulse >90/minute, respirations >20/minute, WBC count >12,000 or <4,000, altered mental status, significant edema or positive fluid balance, hyperglycemia without diabetes, hypotension, metabolic acidosis (elev. lactate level, anion gap or reduced blood pH), shock, positive blood culture (enter organism) ____ ( )Bacteremia (Nonspecific laboratory finding of bacteria in the blood) Specify Organism ( ) Present on Admission ( ) Not present on admission ( ) Unable to clinically determine ( ) Septicemia (Systemic disease associated with the presence of pathogenic microorganisms in the blood): Specify Organism ( ) Present on Admission ( ) Not present on admission ( ) Unable to clinically determine ( X ) Sepsis Specify Organism Specify Associated Condition/Diagnosis ( X) Present on Admission ( ) Not present on admission ( ) Unable to clinically determine ( ) Severe Sepsis (Sepsis associated with acute organ dysfunction) Specify Organism Specify Associated Condition/Diagnosis ( ) Present on Admission ( ) Not present on admission ( ) Unable to clinically determine ( ) Septic Shock (Severe sepsis with acute circulatory failure, unexplained by other causes) ( ) Present on Admission ( ) Not present on admission ( ) Unable to clinically determine ( ) Other, patient has: MTDD
== END 2022-04-28 10:23 | disposition expired | DRG 871 ==
LOC: ED 13:53 → 2S 19:13 → SUATTDRO 19:13 → 2S 20:35